=== PATIENT | male | born 1960 | race African-American/Black ===

== ENCOUNTER 2017-09-08 07:03 | Day surgery (SDC) | payer BC ==
[2017-09-05 10:29] LABS: Absolute Lymphocytes (CBC) 3.6 K/uL (0.7-4.9); Absolute Monocytes 0.8 K/uL (0.1-1.3); Absolute Neutrophil 5.4 K/uL (1.8-8.0); Basophils % 0.5 % (0-1.3); Eosinophils % 3.5 % (0-4.4); Hematocrit 47.9 % (39.6-49.0); Lymphocytes % 35.1 % (15.3-44.8); MCV 92.1 fL (80-100); MPV 8.6 fL (7.6-11.3); Monocytes % 8.2 % (3.3-12.3)
--- NOTE | 2017-09-05 10:31 | RAD REPORT ---
EXAM DESCRIPTION: RADOP - Outpatient Chest Single View - 09/05/2017 10:15 am CLINICAL HISTORY: Hypertension, PAD. COMPARISON: 11/05/2016 FINDINGS: The lungs are clear. The heart is normal in size. No displaced fractures. IMPRESSION: No acute or concerning finding suspected.
[2017-09-05 10:35] LABS: Protime INR 1.12
[2017-09-05 11:06] LABS: BUN Blood Urea Nitrogen 11 mg/dL (6-20); Bicarbonate 29 mEq/L (21-31); Glucose Level 93 mg/dL (65-120); Potassium 4.5 mEq/L (3.6-5.0); Sodium Level 138 mEq/L (135-145)
[~2017-09-08 07:03] MED LIST: ATROPINE SULF 1 MG/10 ML SYR IV ONE; HEPA 1000U/500MLS 2,000 UNIT/1,000 ML BAG IV ONE; HEPARIN 5000 UNIT/ML 1 ML VIAL ONE; LIDOCAINE 1% 20 ML MDV ONE
[2017-09-08] MEDS ORDERED: NA CHLORIDE 0.9% 500 ML ONE (07:18)
[2017-09-08] MEDS ORDERED: FENTANYL CITR 100 MCG/2 ML ONE (07:34)
[2017-09-08] MEDS ORDERED: MIDAZOLAM HCL 2 MG/2 ML INJ ONE (07:34)
--- NOTE | 2017-09-08 20:58 | OP ---
Surgeon: Hiren Jeff MD Identification: A 57-year-old man. Primary Care Physician: Ladonna Mcleod and Garett Royal M.D. Procedure: Abdominal angiogram with runoffs, selective arteriograms of the left iliac and right zaira c arteries with runoffs, all the way to the ankle. Procedure Findings: The patient's aorta and renal arteries are free of any significant atheroscleros is. Renal arteries are widely patent. In the iliac arteries, there is severe vascular disease. The left iliac is completely occluded and constitutes by numerous collaterals at the distal SFA. The il iac and SFA are heavily occluded. There is short-segment of the distal SFA that fills by collaterals , but then SFA is totally occluded again somewhat above the knee, again collaterals reconstitute the popliteal artery. The 3 vessels of the bifurcation below are mildly diseased. There is a 70% stenos is in the left ROSELYN. The right iliac has sequential stenosis. The right superficial femoral is total ly occluded. The common femoral has a 70% stenosis. The SFA is totally occluded until below the kne e. Reconstitution of vessels below the knee is very slow, you can see very small vessels which may p otentially be bypassable. They may be much larger if they had a normal filling pressure, but they nunez ve almost no flow at all. Procedure In Detail: The patient was brought to the cardiac clinical laboratory assistant in a fasting state, sedated wit h Versed and fentanyl. Right femoral artery was identified by palpation. Artery was entered using a n 18-gauge needle. A 6-Serbian sheath was used. With modified Seldinger technique, we were able to p lace a pigtail catheter into the descending aorta. We then exchanged catheters over a wire, yazan crocker cannulated the left iliac, and then we used a multipurpose catheter to fill just the right iliac. We took pictures in several different angulations, several different views, and finally a sheath sh ot. We were able to close the arteriotomy using a StarClose device. No complications from the procedure. The patient will be referred for surgical intervention. FARHEEN/JON Voice ID: [id number] Report ID: [id number]
== END 2017-09-08 12:31 | disposition home or self-care (01) ==
LOC: CCL 07:03
PROVIDERS: ATTEND Internal Medicine
PROC: B400YZZ Plain Radiography of Abdominal Aorta using Other Contrast (ICD-10-PCS; principal; 2017-09-08)
DX: I70.213 Atherosclerosis of native arteries of extremities with intermittent claudication, bilateral legs (principal); I70.92 Chronic total occlusion of artery of the extremities; I10 Essential (primary) hypertension; E78.5 Hyperlipidemia, unspecified; J44.9 Chronic obstructive pulmonary disease, unspecified
CPT/HCPCS: 36200; 36415; 71045; 75630; 80048; 85025; 85610; 85730; C1887; C1893; J1644; J2250; J3010

== ENCOUNTER 2018-03-01 11:04 | Emergency (ER) | payer BC, SELFPAY ==
--- OUTSIDE RECORDS SUMMARY | 2018-03-01 11:07 | XMS REPORT | Clinical Summary ---
:1960 Author Organization [facility] Address [address] [place] [address] Phone Care Team Providers Name Role Phone Unavailable Primary Care Provider Unavailable Allergies No Known Allergies Current Medications Prescription Sig. Disp. Refills Start Date End Date Status aspirin 81 MG EC Take 81 mg by Active tablet mouth daily. atorvastatin Take 1 tablet 30 tablet 11 09/30/2017 09/30/2018 Active (LIPITOR) 40 MG (40 mg total) tablet by mouth nightly. clopidogrel Take 1 tablet 30 tablet 11 10/01/2017 10/01/2018 Active (PLAVIX) 75 mg (75 mg total) tablet by mouth daily. lisinopril-hydroCHL Take 1 tablet 10/09/2017 Discontinued OROthiazide by mouth (RADHA,QISTORETI daily. C) 20-25 mg per tablet simvastatin (ZOCOR) Take 40 mg by 09/16/2017 Discontinued 40 MG tablet mouth nightly. acetaminophen-codei Take 2 tablets 30 tablet 0 09/30/2017 10/10/2017 ne (TYLENOL #3) by mouth every 300-30 mg per 4 (four) hours tablet as needed for up to 10 days. Max Daily Amount: 12 tablets Active Problems Problem Noted Date PVD (peripheral vascular disease) (HCC) 09/25/2017 Respiratory insufficiency 09/25/2017 Hypertension Peripheral vascular disease (HCC) Hyperlipidemia Encounters Date Type Specialty Care Team Description 10/09/2017 Clinical Support Cardiology Javi Urban, Post-operative [facility] (Primary Dx) 09/25/2017 - Hospital Encounter Cardiology Javi Urban, Respiratory insufficiency 09/30/2017 Macarena Rose MD 09/25/2017 Procedure Pass 09/25/2017 Surgery Javi Urban, BYPASS,FEMORAL-POPLITEAL 09/24/2017 Anesthesia Event Rich Paredes MD 09/16/2017 Hospital Encounter Javi Urban MD 09/16/2017 Office Visit Cardiology Javi Urban Aorto-iliac disease ( HCC) (Primary Dx);Femoral-popliteal artery atherosclerosis (HCC);Essential hypertension;Peripheral vascular disease (HCC);Hyperlipidemia, unspecified hyperlipidemia type 09/16/2017 Orders Only Cardiology aJvi Urban Aorto-iliac disease (HCC);Femoral-popliteal artery atherosclerosis (HCC) after 02/28/2017 Family History Medical History Relation Name Comments Cancer Mother throat cancer Relation Name Status Comments Mother Social History Tobacco Use Types Packs/Day Years Used Date Former Smoker 1 20 Quit: 09/23/2017 Smokeless Tobacco: Never Used Tobacco Cessation: Counseling Given: Yes Alcohol Use Drinks/Week oz/Week Comments No Sex Assigned at Date Recorded Not on file Last Filed Vital Signs Vital Sign Reading Time Taken Blood Pressure 137/82 10/09/2017 11:15 AM CDT Pulse 78 10/09/2017 11:15 AM CDT Temperature 36.7 C (98 F) 10/09/2017 11:15 AM CDT Respiratory Rate 16 10/09/2017 11:15 AM CDT Oxygen Saturation 100% 10/09/2017 11:15 AM CDT Inhaled Oxygen Concentration - - Weight 57.2 kg (126 lb 3.2 oz) 10/09/2017 11:15 AM CDT Height 175.3 cm (5' 9") 10/09/2017 11:15 AM CDT Body Mass Index 18.64 10/09/2017 11:15 AM CDT Plan of Treatment Health Maintenance Due Date Last Done Comments INFLUENZA VACCINE 02/23/2018 Implants Implanted Type Area International Marketing Intern Device Expiration Model / Identifier Date Serial / Lot Grft Eptfe-Heparin Rng [id number] - [id number] Graft/Pa Right: ANGELA GORE & 05/12/2021 [id number] / Implanted: Qty: 1 on 09/25/2017 by Javi Urban MD [facility] [id number] / Kathy Prince Gold Knitted Microvel Double Velour Vascular Graft 7mm X 30cm Right: [employer] 02/22/2022 [id number] / Implanted: Qty: 1 on 09/25/2017 by Javi Urban MD Leg [id number] / Procedures Procedure Name Priority Date/Time Associated Diagnosis Comments ENDARTERECTOMY,FEMORAL 09/25/2017 11:12 AM Peripheral vascular CDT occlusive disease (HCC) BYPASS,FEMORAL-FEMORAL 09/25/2017 11:12 AM Peripheral vascular CDT occlusive disease (HCC) BYPASS,FEMORAL-POPLITE 09/25/2017 11:12 AM Peripheral vascular AL CDT occlusive disease (HCC) after 02/28/2017 Results RHYTHM STRIP - SCAN (10/01/2017 1:00 PM)Magnesium (09/28/2017 12:18 AM)Only the most recent of3 resultswithin the time period is included. Component Value Ref Range Magnesium 2.1 1.6 - 2.6 mg/dL Specimen Performing Laboratory Blood [address] [address] Basic Metabolic Panel (09/28/2017 12:18 AM)Only the most recent of5 resultswithin the time period is included. Component Value Ref Range Sodium 136 136 - 145 meq/L Potassium 3.8 3.5 - 5.1 meq/L Chloride 104 98 - 107 meq/L CO2 26 22 - 29 meq/L BUN 11 7 - 21 mg/dL Creatinine 0.92 0.57 - 1.25 mg/dL Glucose 99 70 - 105 mg/dL Calcium 8.5 8.4 - 10.2 mg/dL EGFR 103Comment: ESTIMATED GFR IS NOT ACCURATE mL/min/1.73 sq m CREATININE CLEARANCE IN PREDICTING GLOMERULAR FILTRATION RATE. ESTIMATED GFR IS NOT APPLICABLE FOR DIALYSIS PATIENTS. Specimen Performing Laboratory Blood [address] [address] POC-Glucose meter (09/27/2017 9:11 AM)Only the most recent of3 resultswithin the time period is included. Component Value Ref Range POC-Glucose Meter 81Comment: TESTED AT [address] 70 - 110 mg/dL [address] Specimen Performing Laboratory Blood [facility] [address] [place] [address] Manual Differential (09/27/2017 3:52 AM) Component Value Ref Range Total Counted RBC Morphology Normal WBC Morphology Normal Platelet Morphology Normal Specimen Performing Laboratory Blood - Arm, Right [place] [id number] [place] [address] CBC with platelet count + automated diff (09/27/2017 3:52 AM)Only the most recent of4 resultswithin the time period is included. Component Value Ref Range WBC 14.6 (H) 3.5 - 10.5 K/L RBC 3.59 (L) 4.63 - 6.08 M/L Hemoglobin 11.0 (L) 13.7 - 17.5 GM/DL Hematocrit 32.8 (L) 40.1 - 51.0 % MCV 91.4 79.0 - 92.2 fL MCH 30.6 25.7 - 32.2 pg MCHC 33.5 32.3 - 36.5 GM/DL RDW 12.9 11.6 - 14.4 % Platelets 143 (L) 150 - 450 K/CU MM MPV 10.8 9.4 - 12.4 fL nRBC 0 0 - 0 /100 WBC % Neutros 66Comment: This is an appended % report. These results have been appended to a previously final verified report. % Lymphs 20Comment: This is an appended % report. These results have been appended to a previously final verified report. % Monos 11Comment: This is an appended % report. These results have been appended to a previously final verified report. % Eos 3Comment: This is an appended % report. These results have been appended to a previously final verified report. % Baso 0Comment: This is an appended % report. These results have been appended to a previously final verified report. # Neutros 9.59 (H)Comment: This is an appended 1.78 - 5.38 K/L report. These results have been appended to a previously final verified report. # Lymphs 2.96Comment: This is an appended 1.32 - 3.57 K/L report. These results have been appended to a previously final verified report. # Monos 1.59 (H)Comment: This is an appended 0.30 - 0.82 K/L report. These results have been appended to a previously final verified report. # Eos 0.37Comment: This is an appended 0.04 - 0.54 K/L report. These results have been appended to a previously final verified report. # Baso 0.04Comment: This is an appended 0.01 - 0.08 K/L report. These results have been appended to a previously final verified report. Immature Granulocytes-Relative 1Comment: This is an appended 0 - 1 % report. These results have been appended to a previously final verified report. Specimen Performing Laboratory Blood - Arm, [place] [address] CBC with platelet count + automated diff (09/27/2017 3:52 AM)Only the most recent of4 resultswithin the time period is included. Specimen Performing Laboratory Blood Narrative The following orders were created for panel order CBC with platelet count + automated diff. Procedure Abnormality Status --------- ------ CBC with platelet count ...[[id number]]Abnormal Edited Result - FINAL Please view results for these tests on the individual orders. Calcium, Ionized (09/26/2017 3:45 AM) Component Value Ref Range Calcium, Ion 1.08 (L) 1.12 - 1.27 mmol/L pH, Blood 7.41 Specimen Performing Laboratory Blood - Line, Arterial [address] [address] Lactic acid, arterial, whole blood (09/26/2017 3:45 AM) Component Value Ref Range Lactate, Art 1.0 0.5 - 2.2 mmol/L Specimen Performing Laboratory Blood, Arterial - Line, Arterial [address] [address] Narrative Effective 09/27/2015: Units/Reference Range Change New: 0.5-2.2 mmol/LPrevious: 5-20 mg/dL Phosphorus (09/26/2017 3:45 AM)Only the most recent of2 resultswithin the time period is included. Component Value Ref Range Phosphorus 2.7 2.3 - 4.7 mg/dL Specimen Performing Laboratory Blood - Line, Arterial [address] [address] XR chest 1 view portable / bedside (09/25/2017 6:59 PM) Specimen Performing Laboratory GE RIS Narrative FINAL REPORT HISTORY : central line placement. Comparison: 09/16/2017 Comment: Single portable view of the chest was obtained. The cardiac silhouette size is at the upper limits of normal. No pneumothorax, pleural effusion or focal infiltrate is seen. There may be a degree of mild pulmonary venous congestion. There is atherosclerotic calcification of the thoracic aorta. Nasogastric tube is seen with the tip not included on the film. Right-sided internal jugular venous catheter is in place with the tip projecting over the cavoatrial junction. Signed: Jennifer Huerta MD Report Verified Date/Time:09/25/2017 19:01:26 Reading Location: [address] Consult Reading Room Procedure Note Interface, External Ris In - 09/25/2017 7:03 PM CDT FINAL REPORT HISTORY : central line placement. Comparison: 09/16/2017 Comment: Single portable view of the chest was obtained. The cardiac silhouette size is at the upper limits of normal. No pneumothorax, pleural effusion or focal infiltrate is seen. There may be a degree of mild pulmonary venous congestion. There is atherosclerotic calcification of the thoracic aorta. Nasogastric tube is seen with the tip not included on the film. Right-sided internal jugular venous catheter is in place with the tip projecting over the cavoatrial junction. Signed: Jennifer Huerta MD Report Verified Date/Time: 09/25/2017 19:01:26 Reading Location: [address] Consult Reading Room aPTT (09/25/2017 5:36 PM) Component Value Ref Range PTT 34.5 22.5 - 36.0 seconds Specimen Performing Laboratory Blood [address] [address] Prothromin time/INR (09/25/2017 5:36 PM)Only the most recent of2 resultswithin the time period is included. Component Value Ref Range Protime 15.8 (H) 11.7 - 14.7 seconds INR 1.3 <=5.9 Specimen Performing Laboratory Blood [address] [address] Narrative RECOMMENDED COUMADIN/WARFARIN INR THERAPY RANGES STANDARD DOSE: 2.0 - 3.0 Includes: PROPHYLAXIS for venous thrombosis, systemic embolization; TREATMENT for venous thrombosis and/or pulmonary embolus. HIGH RISK: Target INR is 2.5-3.5 for patients with mechanical heart valves. Fibrinogen (09/25/2017 5:36 PM) Component Value Ref Range Fibrinogen 354 225 - 434 mg/dl Specimen Performing Laboratory Blood [address] [address] Tissue Exam (09/25/2017 4:09 PM) Component Value Ref Range Case Report Surgical Pathology Report Case: [id number] Authorizing Provider:Javi Urban MDCollected: 09/25/2017 1609 Ordering Location: [facility] Received: 09/26/2017 0819 PERIOPERATIVE SERVICES Pathologist: Dejan Martin MD Specimens: A) - Plaque, LEFT FEMORAL PLAQUE B) - Plaque, RIGHT FEMORAL PLAQUE DIAGNOSIS A. ARTERY, LEFT FEMORAL, ENDARTERECTOMY: CALCIFIC ATHEROSCLEROTIC PLAQUE B. ARTERY, RIGHT FEMORAL, ENDARTERECTOMY: CALCIFIC ATHEROSCLEROTIC PLAQUE WITH ATTACHED FIBRIN THROMBUS Signing Pathologist Direct Phone Line: [phone] CPT Code(s) 26299 2 ; 48345 2 CLINICAL HISTORY PVD SPECIMEN SOURCE A. Left femoral plaque. B. Right femoral plaque GROSS DESCRIPTION Specimen A: Received in saline labeled "plaque", description "left femoral plaque" is a 2.5 x 2.5 x 0.5 cm aggregate of sinha- white to yellow-ferreira, rubbery fibrous tissue. Sectioning reveals focal calcifi cation. Vessel Traffic Officer sections are submitted in cassette A1 for decalcification. Specimen B: Received in saline labeled "plaque", description "right femoral plaque" are three irregular, sinha-white to yellow-ferreira, rubbery portions of fibrous tissue measuring 1.5 x 1.5 x 0.2 cm in aggr egate. Sectioning reveals focal calcification. The specimen is entirely submitted in cassette B1 for decalcification. DB/ew MICROSCOPIC DESCRIPTION Performed Specimen Performing Laboratory Tissue [place] [address] TRANSFUSION SERVICE REPORT - SCAN (09/17/2017 5:44 PM)XR chest 2 views (2017 11:17 AM) Specimen Performing Laboratory GE RIS Narrative FINAL REPORT Chest two views INDICATION: Preoperative exam. Aortic iliac disease, femoral popliteal artery atherosclerosis COMPARISON: None available IMPRESSION: There is no focal consolidation, vascular congestion, pleural effusion, or pneumothorax. The cardiomediastinal silhouette is unremarkable. There are mild degenerative spine and shoulder changes. Signed: Yaw Lay MD Report Verified Date/Time:09/16/2017 12:21:59 Reading Location: [facility] Radiology Reading Room Procedure Note Interface, External Ris In - 09/16/2017 12:24 PM CDT FINAL REPORT Chest two views INDICATION: Preoperative exam. Aortic iliac disease, femoral popliteal artery atherosclerosis COMPARISON: None available IMPRESSION: There is no focal consolidation, vascular congestion, pleural effusion, or pneumothorax. The cardiomediastinal silhouette is unremarkable. There are mild degenerative spine and shoulder changes. Signed: Yaw Lay MD Report Verified Date/Time: 09/16/2017 12:21:59 Reading Location: [facility] Radiology Reading Room 12 lead (May substitute report if done w/in last 3 months) (09/16/2017 10: 56 AM) Specimen Performing Laboratory GE MUSE Narrative Ventricular Rate 63 BPM Atrial Rate 63 BPM P-R Interval 188 ms QRS Duration 74 ms Q-T Interval 380 ms QTC Calculation(Bazett) 388 ms P [place] 79 degrees R [place] 66 degrees T [place] 69 degrees Normal sinus rhythm with sinus arrhythmia Normal ECG No previous ECGs available Confirmed by Euegnia Nelson Alireaz ([id number]) on 09/17/2017 10:24:21 PM Procedure Note Interface, External Ris In - 09/17/2017 10:24 PM CDT Ventricular Rate 63 BPM Atrial Rate 63 BPM P-R Interval 188 ms QRS Duration 74 ms Q-T Interval 380 ms QTC Calculation(Bazett) 388 ms P [place] 79 degrees R [place] 66 degrees T [place] 69 degrees Normal sinus rhythm with sinus arrhythmia Normal ECG No previous ECGs available Confirmed by Eugenia Nelson Alireaz ([id number]) on 09/17/2017 10:24:21 PM Type and screen, automated (09/16/2017 10:54 AM) Component Value Ref Range ABO/RH AUTOMATED (BEAKER) A POSITIVE Ab Scrn NEGATIVE Specimen [place] [address] Hemoglobin A1c (09/16/2017 10:54 AM) Component Value Ref Range Hemoglobin A1C 5.6 4.3 - 6.1 % Specimen Performing Laboratory Blood [address] [address] after 02/28/2017
--- OUTSIDE RECORDS SUMMARY | 2018-03-01 11:07 | XMS REPORT ---
:1960 Author Organization [facility] Address [facility] [address] Guillen [address] [place] [id number] Care Team Providers Name Role Phone GRETA URBAN Unavailable Unavailable Problems This patient has no known problems. Allergies, Adverse Reactions, Alerts This patient has no known allergies or adverse reactions. Medications This patient has no known medications. Results Test Description Test Time Test Comments Text Results Atomic Results Result Comments TISSUE EXAM 2017-09-30 14:18:00 Surgical Pathology Report Case: [id number] Authorizing Provider: Greta Urban MD Collected: 09/25/2017 1609 Ordering Location: [facility] Received: 09/26/2017 0819 PERIOPERATIVE SERVICES Pathologist: Dejan Martin MD Specimens: A) - Plaque, LEFT FEMORAL PLAQUE B) - Plaque, RIGHT FEMORAL PLAQUE A. ARTERY, LEFT FEMORAL, ENDARTERECTOMY:CALCIFIC ATHEROSCLEROTIC PLAQUEB. ARTERY, RIGHT FEMORAL, ENDARTERECTOMY:CALCIFIC ATHEROSCLEROTIC PLAQUE WITH ATTACHED FIBRIN THROMBUS Signing Pathologist Direct Phone Line: [phone] signed by Dejan Martin MD on 09/30/2017 at 2:18 [id number]; [id number]. Left femoral plaque. B. Right femoral plaque Specimen A: Received in saline labeled "plaque", description "left femoral plaque" is a 2.5 x 2.5 x 0.5 cm aggregate of sinha-white to yellow-ferreira, rubbery fibrous tissue. Sectioning reveals focal calcification. [employer] sections are submitted in cassette A1 for decalcification.Specimen B: Received in saline labeled "plaque", description "right femoral plaque" are three irregular, sinha-white to yellow-ferreira, rubbery portions of fibrous tissue measuring 1.5 x 1.5 x 0.2 cm in aggregate. Sectioning reveals focal calcification. The specimen is entirely submitted in cassette B1 for decalcification. DB/ewPerformed MAGNESIUM 2017-09-28 00:38:00 Test Item Value Reference Range Comments MAGNESIUM (BEAKER) (test lxsv=199) 2.1 mg/dL 1.6-2.6 BASIC METABOLIC [id number] 00:38:00 Test Item Value Reference Range Comments SODIUM (BEAKER) (test 136 meq/L 136-145 ssmg=479) POTASSIUM (BEAKER) (test 3.8 meq/L 3.5-5.1 qmxj=754) CHLORIDE (BEAKER) (test 104 meq/L 98-107 jfxf=663) CO2 (BEAKER) (test 26 meq/L 22-29 hqso=152) BLOOD UREA NITROGEN 11 mg/dL 7-21 (BEAKER) (test xhdy=317) CREATININE (BEAKER) (test 0.92 mg/dL 0.57-1.25 vwex=842) GLUCOSE RANDOM (BEAKER) 99 mg/dL 70-105 (test oovm=213) CALCIUM (BEAKER) (test 8.5 mg/dL 8.4-10.2 roqc=739) EGFR (BEAKER) (test 103 mL/min/1.73 sq m ESTIMATED GFR IS NOT lraf=4047) ACCURATE CREATININE CLEARANCE IN PREDICTING GLOMERULAR FILTRATION RATE. ESTIMATED GFR IS NOT APPLICABLE FOR DIALYSIS PATIENTS. CBC W/PLT COUNT & AUTO [id number] 13:39:00 Test Item Value Reference Range Comments WHITE BLOOD CELL COUNT 14.6 K/ L 3.5-10.5 (BEAKER) (test stej=989) RED BLOOD CELL COUNT (BEAKER) 3.59 M/ L 4.63-6.08 (test roub=492) HEMOGLOBIN (BEAKER) (test 11.0 GM/DL 13.7-17.5 opxm=422) HEMATOCRIT (BEAKER) (test 32.8 % 40.1-51.0 rbhv=483) MEAN CORPUSCULAR VOLUME 91.4 fL 79.0-92.2 (BEAKER) (test qpec=748) MEAN CORPUSCULAR HEMOGLOBIN 30.6 pg 25.7-32.2 (BEAKER) (test lzet=121) MEAN CORPUSCULAR HEMOGLOBIN 33.5 GM/DL 32.3-36.5 CONC (BEAKER) (test ndca=673) RED CELL DISTRIBUTION WIDTH 12.9 % 11.6-14.4 (BEAKER) (test bvgk=335) PLATELET COUNT (BEAKER) (test 143 K/CU MM 150-450 swkd=122) MEAN PLATELET VOLUME (BEAKER) 10.8 fL 9.4-12.4 (test pmnu=334) NUCLEATED RED BLOOD CELLS 0 /100 WBC 0-0 (BEAKER) (test oxge=830) NEUTROPHILS RELATIVE PERCENT 66 % This is an appended report. (BEAKER) (test kxce=917) These results have been appended to a previously final verified report. LYMPHOCYTES RELATIVE PERCENT 20 % This is an appended report. (BEAKER) (test vklv=037) These results have been appended to a previously final verified report. MONOCYTES RELATIVE PERCENT 11 % This is an appended report. (BEAKER) (test suoq=370) These results have been appended to a previously final verified report. EOSINOPHILS RELATIVE PERCENT 3 % This is an appended report. (BEAKER) (test sila=700) These results have been appended to a previously final verified report. BASOPHILS RELATIVE PERCENT 0 % This is an appended report. (BEAKER) (test cszz=339) These results have been appended to a previously final verified report. NEUTROPHILS ABSOLUTE COUNT 9.59 K/ L 1.78-5.38 This is an appended report. (BEAKER) (test teyf=595) These results have been appended to a previously final verified report. LYMPHOCYTES ABSOLUTE COUNT 2.96 K/ L 1.32-3.57 This is an appended report. (BEAKER) (test addn=553) These results have been appended to a previously final verified report. MONOCYTES ABSOLUTE COUNT 1.59 K/ L 0.30-0.82 This is an appended report. (BEAKER) (test agzt=081) These results have been appended to a previously final verified report. EOSINOPHILS ABSOLUTE COUNT 0.37 K/ L 0.04-0.54 This is an appended report. (BEAKER) (test gqhm=202) These results have been appended to a previously final verified report. BASOPHILS ABSOLUTE COUNT 0.04 K/ L 0.01-0.08 This is an appended report. (BEAKER) (test bbqb=746) These results have been appended to a previously final verified report. IMMATURE GRANULOCYTES-RELATIVE 1 % 0-1 This is an appended report. PERCENT (BEAKER) (test These results have been cxto=0166) appended to a previously final verified report. POCT-GLUCOSE [id number] 09:12:00 Test Item Value Reference Range Comments POC-GLUCOSE METER (BEAKER) 81 mg/dL 70-110 TESTED AT [address] (test dbvp=0947) [place] [address] BASIC METABOLIC [id number] 05:02:00 Test Item Value Reference Range Comments SODIUM (BEAKER) (test 136 meq/L 136-145 pcnu=713) POTASSIUM (BEAKER) (test 3.8 meq/L 3.5-5.1 oeic=261) CHLORIDE (BEAKER) (test 105 meq/L 98-107 stwe=212) CO2 (BEAKER) (test 25 meq/L 22-29 qrja=656) BLOOD UREA NITROGEN 9 mg/dL 7-21 (BEAKER) (test ueet=864) CREATININE (BEAKER) (test 0.82 mg/dL 0.57-1.25 qsef=096) GLUCOSE RANDOM (BEAKER) 89 mg/dL 70-105 (test xord=609) CALCIUM (BEAKER) (test 8.3 mg/dL 8.4-10.2 gzhi=084) EGFR (BEAKER) (test 117 mL/min/1.73 sq m ESTIMATED GFR IS NOT bckl=5306) ACCURATE CREATININE CLEARANCE IN PREDICTING GLOMERULAR FILTRATION RATE. ESTIMATED GFR IS NOT APPLICABLE FOR DIALYSIS PATIENTS. POCT-GLUCOSE [id number] 21:22:00 Test Item Value Reference Range Comments POC-GLUCOSE METER (BEAKER) 121 mg/dL 70-110 TESTED AT [address] (test gzsw=4755) [place] [address] [id number] 04:30:00 Test Item Value Reference Range Comments PHOSPHORUS (BEAKER) (test qrvl=456) 2.7 mg/dL 2.3-4.7 [id number] 04:30:00 Test Item Value Reference Range Comments MAGNESIUM (BEAKER) (test plsg=978) 2.5 mg/dL 1.6-2.6 BASIC METABOLIC [id number] 04:30:00 Test Item Value Reference Range Comments SODIUM (BEAKER) (test 134 meq/L 136-145 fust=593) POTASSIUM (BEAKER) (test 3.8 meq/L 3.5-5.1 ngqz=106) CHLORIDE (BEAKER) (test 104 meq/L 98-107 eerg=921) CO2 (BEAKER) (test 22 meq/L 22-29 swkz=908) BLOOD UREA NITROGEN 13 mg/dL 7-21 (BEAKER) (test vgul=316) CREATININE (BEAKER) (test 0.96 mg/dL 0.57-1.25 dfpt=002) GLUCOSE RANDOM (BEAKER) 115 mg/dL 70-105 (test pwyz=404) CALCIUM (BEAKER) (test 8.2 mg/dL 8.4-10.2 ozqd=981) EGFR (BEAKER) (test 98 mL/min/1.73 sq m ESTIMATED GFR IS NOT qnmo=4665) ACCURATE CREATININE CLEARANCE IN PREDICTING GLOMERULAR FILTRATION RATE. ESTIMATED GFR IS NOT APPLICABLE FOR DIALYSIS PATIENTS. LACTIC ACID, ARTERIAL, WHOLE [id number] 04:15:00 Test Item Value Reference Range Comments LACTATE BLOOD ARTERIAL (2) (BEAKER) (test 1.0 mmol/L 0.5-2.2 bgut=1161) Effective 09/27/2015: Units/Reference Range ChangeNew: 0.5-2.2 mmol/L Previous: 5 -20 mg/dLCBC W/PLT COUNT & AUTO [id number] 04:12:00 Test Item Value Reference Range Comments WHITE BLOOD CELL COUNT (BEAKER) (test hlpa=405) 16.5 K/ L 3.5-10.5 RED BLOOD CELL COUNT (BEAKER) (test jgii=761) 4.08 M/ L 4.63-6.08 HEMOGLOBIN (BEAKER) (test dshv=773) 12.5 GM/DL 13.7-17.5 HEMATOCRIT (BEAKER) (test djls=757) 36.9 % 40.1-51.0 MEAN CORPUSCULAR VOLUME (BEAKER) (test mmxf=500) 90.4 fL 79.0-92.2 MEAN CORPUSCULAR HEMOGLOBIN (BEAKER) (test 30.6 pg 25.7-32.2 cyjr=628) MEAN CORPUSCULAR HEMOGLOBIN CONC (BEAKER) (test 33.9 GM/DL 32.3-36.5 dutj=548) RED CELL DISTRIBUTION WIDTH (BEAKER) (test 12.8 % 11.6-14.4 vdhu=190) PLATELET COUNT (BEAKER) (test pwqt=370) 183 K/CU MM 150-450 MEAN PLATELET VOLUME (BEAKER) (test sgae=818) 10.2 fL 9.4-12.4 NUCLEATED RED BLOOD CELLS (BEAKER) (test 0 /100 WBC 0-0 irrk=578) NEUTROPHILS RELATIVE PERCENT (BEAKER) (test 80 % xozh=546) LYMPHOCYTES RELATIVE PERCENT (BEAKER) (test 11 % voga=696) MONOCYTES RELATIVE PERCENT (BEAKER) (test 8 % dywf=460) EOSINOPHILS RELATIVE PERCENT (BEAKER) (test 1 % eshb=680) BASOPHILS RELATIVE PERCENT (BEAKER) (test 0 % qecs=098) NEUTROPHILS ABSOLUTE COUNT (BEAKER) (test 13.15 K/ L 1.78-5.38 jpig=140) LYMPHOCYTES ABSOLUTE COUNT (BEAKER) (test 1.85 K/ L 1.32-3.57 rqbe=447) MONOCYTES ABSOLUTE COUNT (BEAKER) (test 1.36 K/ L 0.30-0.82 wrcw=888) EOSINOPHILS ABSOLUTE COUNT (BEAKER) (test 0.10 K/ L 0.04-0.54 gyqh=357) BASOPHILS ABSOLUTE COUNT (BEAKER) (test 0.03 K/ L 0.01-0.08 qmjl=177) IMMATURE GRANULOCYTES-RELATIVE PERCENT (BEAKER) 0 % 0-1 (test owzl=4671) CALCIUM, [id number] 03:51:00 Test Item Value Reference Range Comments CALCIUM IONIZED (BEAKER) (test mfrp=681) 1.08 mmol/L 1.12-1.27 PH, BLOOD (BEAKER) (test nzwf=3170) 7.41 POCT-GLUCOSE [id number] 22:24:00 Test Item Value Reference Range Comments POC-GLUCOSE METER (BEAKER) 159 mg/dL 70-110 TESTED AT [facility] [address] [facility] (test ntdr=0244) [facility] [address] RAD, CHEST, 1 VIEW, NON [id number] 19:01:00Reason for exam:->central line placement Should this be performed at the bedside?->YesFINAL REPORT HISTORY : central line placement. Comparison: 09/16/2017 Comment:Single portable view of the chest was obtained. The cardiac silhouette size is at the upper limits of normal. No pneumothorax, pleural effusion or focal infiltrate is seen. There may be a degree of mild pulmonary venous congestion. There is atherosclerotic calcification of the thoracic aorta. Nasogastric tube is seen with the tip not included on the film. Right-sided internal jugular venous catheteris in place with the tip projecting over the cavoatrial junction. Signed: Jennifer Huerta MDReport Verified Date/Time: 2017 19:01:26 Reading Location: [address] Consult Reading Room [id number] 18:09:00 Test Item Value Reference Range Comments PHOSPHORUS (BEAKER) (test dfpz=378) 3.1 mg/dL 2.3-4.7 [id number] 18:09:00 Test Item Value Reference Range Comments MAGNESIUM (BEAKER) (test crkh=935) 1.7 mg/dL 1.6-2.6 BASIC METABOLIC [id number] 18:09:00 Test Item Value Reference Range Comments SODIUM (BEAKER) (test 137 meq/L 136-145 iqau=999) POTASSIUM (BEAKER) (test 3.9 meq/L 3.5-5.1 auvy=120) CHLORIDE (BEAKER) (test 108 meq/L 98-107 tlap=904) CO2 (BEAKER) (test 23 meq/L 22-29 hgdf=088) BLOOD UREA NITROGEN 14 mg/dL 7-21 (BEAKER) (test iygw=475) CREATININE (BEAKER) (test 0.95 mg/dL 0.57-1.25 usto=164) GLUCOSE RANDOM (BEAKER) 231 mg/dL 70-105 (test fjma=605) CALCIUM (BEAKER) (test 8.1 mg/dL 8.4-10.2 hbdu=565) EGFR (BEAKER) (test 99 mL/min/1.73 sq m ESTIMATED GFR IS NOT ydaz=2514) ACCURATE CREATININE CLEARANCE IN PREDICTING GLOMERULAR FILTRATION RATE. ESTIMATED GFR IS NOT APPLICABLE FOR DIALYSIS PATIENTS. PROTHROMBIN [id number] 18:01:00 Test Item Value Reference Range Comments PROTIME (BEAKER) (test xcep=217) 15.8 seconds 11.7-14.7 INR (BEAKER) (test ggjt=145) 1.3 <=5.9 RECOMMENDED COUMADIN/WARFARIN INR THERAPY RANGESSTANDARD DOSE: 2.0 - 3.0 Includes: PROPHYLAXIS forvenous thrombosis, systemic embolization; TREATMENT for venous thrombosis and/or pulmonary embolus.HIGH RISK: Target INR is 2.5-3.5 for patients with mechanical heart valves.[id number] 18:01:00 Test Item Value Reference Range Comments FIBRINOGEN LEVEL (BEAKER) (test ymhq=070) 354 mg/dl 225-434 [id number] 18:01:00 Test Item Value Reference Range Comments PARTIAL THROMBOPLASTIN TIME (BEAKER) (test 34.5 seconds 22.5-36.0 buit=436) CBC W/PLT COUNT & AUTO [id number] 17:52:00 Test Item Value Reference Range Comments WHITE BLOOD CELL COUNT (BEAKER) (test sghu=310) 21.1 K/ L 3.5-10.5 RED BLOOD CELL COUNT (BEAKER) (test ccaw=003) 4.68 M/ L 4.63-6.08 HEMOGLOBIN (BEAKER) (test ivkq=954) 14.3 GM/DL 13.7-17.5 HEMATOCRIT (BEAKER) (test mzfs=654) 42.8 % 40.1-51.0 MEAN CORPUSCULAR VOLUME (BEAKER) (test wgka=002) 91.5 fL 79.0-92.2 MEAN CORPUSCULAR HEMOGLOBIN (BEAKER) (test 30.6 pg 25.7-32.2 igab=209) MEAN CORPUSCULAR HEMOGLOBIN CONC (BEAKER) (test 33.4 GM/DL 32.3-36.5 mjfy=975) RED CELL DISTRIBUTION WIDTH (BEAKER) (test 13.0 % 11.6-14.4 xxhj=427) PLATELET COUNT (BEAKER) (test gnwn=336) 216 K/CU MM 150-450 MEAN PLATELET VOLUME (BEAKER) (test exre=620) 10.3 fL 9.4-12.4 NUCLEATED RED BLOOD CELLS (BEAKER) (test 0 /100 WBC 0-0 eoqp=689) NEUTROPHILS RELATIVE PERCENT (BEAKER) (test 65 % tycl=058) LYMPHOCYTES RELATIVE PERCENT (BEAKER) (test 24 % sujp=615) MONOCYTES RELATIVE PERCENT (BEAKER) (test 7 % ewvy=725) EOSINOPHILS RELATIVE PERCENT (BEAKER) (test 3 % jmxy=293) BASOPHILS RELATIVE PERCENT (BEAKER) (test 0 % rnuv=001) NEUTROPHILS ABSOLUTE COUNT (BEAKER) (test 13.75 K/ L 1.78-5.38 lpma=674) LYMPHOCYTES ABSOLUTE COUNT (BEAKER) (test 4.96 K/ L 1.32-3.57 ewrv=672) MONOCYTES ABSOLUTE COUNT (BEAKER) (test 1.37 K/ L 0.30-0.82 hpfr=671) EOSINOPHILS ABSOLUTE COUNT (BEAKER) (test 0.69 K/ L 0.04-0.54 qorg=851) BASOPHILS ABSOLUTE COUNT (BEAKER) (test 0.05 K/ L 0.01-0.08 txog=892) IMMATURE GRANULOCYTES-RELATIVE PERCENT (BEAKER) 1 % 0-1 (test qsjf=1031) HEMOGLOBIN [id number] 14:43:00 Test Item Value Reference Range Comments HEMOGLOBIN A1C (BEAKER) (test lycd=902) 5.6 % 4.3-6.1 BASIC METABOLIC [id number] 12:35:00 Test Item Value Reference Range Comments SODIUM (BEAKER) (test 141 meq/L 136-145 qbee=353) POTASSIUM (BEAKER) (test 4.1 meq/L 3.5-5.1 kfbj=600) CHLORIDE (BEAKER) (test 105 meq/L 98-107 ndjp=948) CO2 (BEAKER) (test 28 meq/L 22-29 pryi=845) BLOOD UREA NITROGEN 9 mg/dL 7-21 (BEAKER) (test tnyk=240) CREATININE (BEAKER) (test 0.82 mg/dL 0.57-1.25 xwwe=667) GLUCOSE RANDOM (BEAKER) 89 mg/dL 70-105 (test invy=763) CALCIUM (BEAKER) (test 9.5 mg/dL 8.4-10.2 qxkf=616) EGFR (BEAKER) (test 117 mL/min/1.73 sq m ESTIMATED GFR IS NOT hsgw=8120) ACCURATE CREATININE CLEARANCE IN PREDICTING GLOMERULAR FILTRATION RATE. ESTIMATED GFR IS NOT APPLICABLE FOR DIALYSIS PATIENTS. PROTHROMBIN TIME/[id number] 12:32:00 Test Item Value Reference Range Comments PROTIME (BEAKER) (test mvzq=312) 13.7 seconds 11.7-14.7 INR (BEAKER) (test rbpa=551) 1.1 <=5.9 RECOMMENDED COUMADIN/WARFARIN INR THERAPY RANGESSTANDARD DOSE: 2.0 - 3.0 Includes: PROPHYLAXIS forvenous thrombosis, systemic embolization; TREATMENT for venous thrombosis and/or pulmonary embolus.HIGH RISK: Target INR is 2.5-3.5 for patients with mechanical heart valves.RAD, CHEST, 2 [id number] 12:21: 00Reason for Exam:->Pre-OpFINAL REPORT Chest two views INDICATION: Preoperative exam. Aortic iliac disease, femoral popliteal artery atherosclerosis COMPARISON: None available IMPRESSION: There is no focal consolidation, vascular congestion, pleural effusion, or pneumothorax. The cardiomediastinal silhouette is unremarkable. There are mild degenerative spine and shoulder changes. Signed: Yaw Lay MDReport Verified Date/Time: 09/16/2017 12:21:59 Reading Location: [facility] Radiology Reading Room CBC W/ PLT COUNT & AUTO [id number] 12:19:00 Test Item Value Reference Range Comments WHITE BLOOD CELL COUNT (BEAKER) (test nlto=682) 8.6 K/ L 3.5-10.5 RED BLOOD CELL COUNT (BEAKER) (test uyky=262) 5.05 M/ L 4.63-6.08 HEMOGLOBIN (BEAKER) (test ludq=113) 15.4 GM/DL 13.7-17.5 HEMATOCRIT (BEAKER) (test wkuq=717) 47.1 % 40.1-51.0 MEAN CORPUSCULAR VOLUME (BEAKER) (test wejx=379) 93.3 fL 79.0-92.2 MEAN CORPUSCULAR HEMOGLOBIN (BEAKER) (test 30.5 pg 25.7-32.2 qedz=348) MEAN CORPUSCULAR HEMOGLOBIN CONC (BEAKER) (test 32.7 GM/DL 32.3-36.5 bqdo=274) RED CELL DISTRIBUTION WIDTH (BEAKER) (test 13.0 % 11.6-14.4 ijrg=931) PLATELET COUNT (BEAKER) (test udzu=610) 272 K/CU MM 150-450 MEAN PLATELET VOLUME (BEAKER) (test eumr=757) 10.6 fL 9.4-12.4 NUCLEATED RED BLOOD CELLS (BEAKER) (test 0 /100 WBC 0-0 xdao=757) NEUTROPHILS RELATIVE PERCENT (BEAKER) (test 55 % cvim=287) LYMPHOCYTES RELATIVE PERCENT (BEAKER) (test 33 % kutd=650) MONOCYTES RELATIVE PERCENT (BEAKER) (test 6 % fepf=019) EOSINOPHILS RELATIVE PERCENT (BEAKER) (test 5 % bduw=288) BASOPHILS RELATIVE PERCENT (BEAKER) (test 0 % dvwo=850) NEUTROPHILS ABSOLUTE COUNT (BEAKER) (test 4.70 K/ L 1.78-5.38 bmky=453) LYMPHOCYTES ABSOLUTE COUNT (BEAKER) (test 2.83 K/ L 1.32-3.57 dmlg=766) MONOCYTES ABSOLUTE COUNT (BEAKER) (test 0.51 K/ L 0.30-0.82 eaxl=376) EOSINOPHILS ABSOLUTE COUNT (BEAKER) (test 0.46 K/ L 0.04-0.54 gzal=985) BASOPHILS ABSOLUTE COUNT (BEAKER) (test 0.03 K/ L 0.01-0.08 epet=888) IMMATURE GRANULOCYTES-RELATIVE PERCENT (BEAKER) 0 % 0-1 (test iabq=4427)
[2018-03-01 12:06] LABS: Absolute Lymphocytes (CBC) 3.3 K/uL (0.7-4.9); Absolute Monocytes 0.7 K/uL (0.1-1.3); Absolute Neutrophil 5.7 K/uL (1.8-8.0); Basophils % 0.5 % (0-1.3); Eosinophils % 4.1 % (0-4.4); Hematocrit 44.8 % (39.6-49.0); Lymphocytes % 32.4 % (15.3-44.8); MCV 90.5 fL (80-100); MPV 8.6 fL (7.6-11.3); Monocytes % 6.9 % (3.3-12.3); RBC Red Blood Cell Count 4.95 M/uL (4.33-5.43)
[2018-03-01 12:25] LABS: ALT/SGPT 33 U/L (12-78); AST/SGOT 22 U/L (15-37); Albumin 4.3 g/dL (3.4-5.0); Alkaline Phosphatase 69 U/L (45-117); BUN Blood Urea Nitrogen 7 mg/dL (7-18); Bicarbonate 26 mmol/L (21-32); Bilirubin Total 0.7 mg/dL (0.2-1.0); Glucose Level 104 mg/dL (74-106); Potassium 3.7 mmol/L (3.5-5.1); Protein, Total 8.5 g/dL (6.4-8.2); Sodium Level 142 mmol/L (136-145)
--- NOTE | 2018-03-01 13:12 | RAD REPORT ---
EXAM DESCRIPTION: RAD - Foot Right 3 View - 03/01/2018 12:06 pm CLINICAL HISTORY: PAIN COMPARISON: No comparisons FINDINGS: The bones are mildly demineralized. No fracture, dislocation or aggressive marrow lesion.
--- NOTE | 2018-03-01 13:20 | RAD REPORT ---
EXAM DESCRIPTION: US - Extremity Venous Uni Ltd - 03/01/2018 1:13 pm CLINICAL HISTORY: lower extremity swelling Leg swelling and edema. COMPARISON: Upper Lower Extrem Art Multi dated 05/06/2017 FINDINGS: Right lower extremity venous system was interrogated with Doppler technique. Normal flow, compressibility and augmentation was noted. There is no DVT present. IMPRESSION: No evidence of right lower extremity deep venous thrombosis.
--- NOTE | 2018-03-01 13:31 | RAD REPORT ---
EXAM DESCRIPTION: US - Lower Extremity Artery Uni Ltd - 03/01/2018 1:14 pm CLINICAL HISTORY: pain, swelling COMPARISON: ABDOMINAL EXAM LIMITED dated 03/04/2014Lower Ext Angio dated 08/07/2017 FINDINGS: Grayscale, spectral, color and power Doppler of the right lower extremity arterial system was performed. Very diseased pattern of right lower extremity arterial flow seen. A graft is noted the in the thigh with flow not detected within the mid and distal portion of the graft. Monophasic and very diminished flow is seen in the popliteal artery and distal vessels. 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
--- NOTE | 2018-03-01 14:07 | ER ---
Nurse's Notes [facility] Name: Noé Garcia Age: 57 yrs Sex: Male : 1960 Arrival Date: 03/01/2018 Time: 11:07 Bed 6 Private MD: Diagnosis: Graft Occlusion;Peripheral vascular disease, unspecified Presentation: 03/01 11:09 Presenting complaint: Patient states: I had surgery on my on right foot 4 months ago la1 and I was never able to follow up, I have been trying to take care of it on my own but now I am having increased pain and decreased ROM. Transition of care: patient was not received from another setting of care. Onset of symptoms was March 01, 2018. Risk Assessment: Do you want to hurt yourself or someone else? Patient reports no desire to harm self or others. Initial Sepsis Screen: Does the patient meet any 2 criteria? No. Patient's initial sepsis screen is negative. Does the patient have a suspected source of infection? No. Patient's initial sepsis screen is negative. Care prior to arrival: None. 11:09 Method Of Arrival: Wheelchair la1 11:09 Acuity: BINH 3 la1 Historical: - Allergies: 11:11 No Known Allergies; la1 - PMHx: 11:11 Hypertension; la1 - Immunization history:: Adult Immunizations up to date. - Social history:: Smoking status: Patient uses tobacco products, smokes one-half pack cigarettes per day, Patient uses Patient/guardian denies using. - Ebola Screening: : No symptoms or risks identified at this time. Screenin:35 Abuse screen: Denies threats or abuse. Denies injuries from another. Nutritional sv screening: No deficits noted. Tuberculosis screening: No symptoms or risk factors identified. Fall Risk None identified. Assessment: 11:25 General: Appears in no apparent distress. uncomfortable, slender, Behavior is calm, sv cooperative, appropriate for age. Pain: Complains of pain in right foot Pain currently is 5 out of 10 on a pain scale. Quality of pain is described as tender, Is intermittent, episodic, Aggravated by increased activity, weight bearing. Neuro: Level of Consciousness is awake, alert, obeys commands, Oriented to person, place, time, situation, Moves all extremities. Cardiovascular: Patient's skin is warm and dry. Pulses are 2+ in right posterior tibial artery and right dorsalis pedis artery done by Doppler. Respiratory: Respiratory effort is even, unlabored, Respiratory pattern is regular, symmetrical. Derm: Skin is normal, Wound noted dorsum of right foot Wound is unstageable wound, eschar present on wound bed. Pt reports that it started out "tiny" about 3.5 months ago and has progressively gotten worse. Pt reports that he's been rubbing and scraping his right foot with dial soap. Musculoskeletal: Range of motion: intact in all extremities. 13:17 Reassessment: Patient appears in no apparent distress at this time. No changes from sv previously documented assessment. Patient and/or family updated on plan of care and expected duration. Pain level reassessed. Patient is alert, oriented x 3, equal unlabored respirations, skin warm/dry/pink. 14:26 Reassessment: Patient appears in no apparent distress at this time. No changes from sv previously documented assessment. Patient and/or family updated on plan of care and expected duration. Pain level reassessed. Patient is alert, oriented x 3, equal unlabored respirations, skin warm/dry/pink. Vital Signs: 11:11 BP 138 / 96; Pulse 85; Resp 16; Temp 97.8; Pulse Ox 98% on R/A; Weight 65.77 kg; Height la1 5 ft. 9 in. (175.26 cm); 13:16 BP 153 / 89; Pulse 77; Resp 16; Pulse Ox 100% on R/A; sv 14:26 BP 142 / 88; Pulse 78; Resp 16; Pulse Ox 99% ; sv 11:11 Body Mass Index 21.41 (65.77 kg, 175.26 cm) la1 ED Course: 11:07 Patient arrived in ED. as 11:10 Triage completed. la1 11:11 Arm band placed on right wrist. la1 11:18 Alon Ayers PA is PHCP. [facility] 11:18 London Bean MD is Attending Physician. jm 11:34 Bina Ayala, CRISTINA is Primary Nurse. sv 11:35 Patient has correct armband on for positive identification. Bed in low position. Door sv closed. Head of bed elevated. 11:45 Initial lab(s) drawn, by me, sent to lab. First set of blood cultures drawn by me. sv Inserted saline lock: 20 gauge in right antecubital area, using aseptic technique. Blood collected. Flushed right antecubital with 5 ml normal saline. 12:00 Second set of blood cultures drawn by me. sv 12:02 Foot Right 3 View XRAY In Process Unspecified. EDMS 12:10 Awaiting: US. sv 13:09 Ultrasound completed. Patient tolerated well. Notified GLASS WORKER/PA alon. sg3 13:13 US Extremity Venous Unilateral Ltd In Process Unspecified. EDMS 13:14 US LE Artery Uni Ltd In Process Unspecified. EDMS 13:17 Awaiting radiology results. Awaiting re-evaluation by ER provider. sv 13:39 initiated a transfer with Sandy at the [facility]. eb 13:[address] Mcneil the vascular surgeon sales applications engineer from [facility] with Alon ALVAREZ for eb patient transfer consultation. 14:00 Sandy from the [facility] transfer center called and said Dr. Mcneil declined the patient eb in transfer/ Advised the PA to have patient follow up in the clinic on Friday. 14:26 No provider procedures requiring assistance completed. IV discontinued, intact, sv bleeding controlled, No redness/swelling at site. Pressure dressing applied. Administered Medications: No medications were administered Outcome: 14:07 Discharge ordered by . katelyn 14:26 Discharged to home via wheelchair. sv 14:26 Condition: stable 14:26 Discharge instructions given to patient, Instructed on discharge instructions, follow up and referral plans. no drinking with medication, no driving heavy equipment, medication usage, Pt stated he will call tomorrow to go see his surgeon at [facility] Demonstrated understanding of instructions, follow-up care, medications, Prescriptions given X 1. 14:27 Patient left the ED. sv Signatures: Dispatcher [employer] EDBina Whitaker, RN RN Alon Urrutia PA PA jmm Martinez, Amelia as Attema, Lee RN RN Gela Stanley 3 Samira Bradley
--- NOTE | 2018-03-01 14:07 | EDPHYS ---
Physician Documentation [facility] Name: Noé Garcia Age: 57 yrs Sex: Male : 1960 Arrival Date: 03/01/2018 Time: 11:07 Bed 6 Private MD: ED Physician London Bean HPI: 03/01 11:47 This 57 yrs old Black Male presents to ER via Wheelchair with complaints of Wound jmm Check, Feet Swelling. 11:47 Patient presents to ED for recheck of: foot ulcer. The affected area is on the right [facility] foot. This is a 57 year old male with a history of HTN, PVD that presents to the ED with redness and pain to the right lower extremity for the past month and a half with increased pain. Patient states that he had a bypass surgery performed by Dr. Rajni novak 4 months ago. . Historical: - Allergies: 11:11 No Known Allergies; la1 - PMHx: 11:11 Hypertension; la1 - Immunization history:: Adult Immunizations up to date. - Social history:: Smoking status: Patient uses tobacco products, smokes one-half pack cigarettes per day, Patient uses Patient/guardian denies using. - Ebola Screening: : No symptoms or risks identified at this time. ROS: 11:47 Constitutional: Negative for fever, chills, and weight loss, Cardiovascular: Negative jmm for chest pain, palpitations, and edema, Respiratory: Negative for shortness of breath, cough, wheezing, and pleuritic chest pain. 11:47 MS/extremity: Positive for pain, tenderness. 11:47 Skin: Positive for ulcer. 11:47 All other systems are negative. Exam: 11:47 Head/Face: atraumatic. Chest/axilla: Normal chest wall appearance and motion. jmm Cardiovascular: Regular rate and rhythm. No edema appreciated Respiratory: Normal respirations, no respiratory distress appreciated 11:47 Constitutional: The patient appears in no acute distress, alert, awake. 11:47 Skin: ulcer noted to the dorsum of the right foot, erythema noted to the right lower extremity, TTP. 11:47 Neuro: Orientation: is normal, Mentation: is normal, Memory: is normal. 11:47 Psych: Behavior/mood is pleasant, cooperative. Vital Signs: 11:11 BP 138 / 96; Pulse 85; Resp 16; Temp 97.8; Pulse Ox 98% on R/A; Weight 65.77 kg; Height la1 5 ft. 9 in. (175.26 cm); 13:16 BP 153 / 89; Pulse 77; Resp 16; Pulse Ox 100% on R/A; sv 14:26 BP 142 / 88; Pulse 78; Resp 16; Pulse Ox 99% ; sv 11:11 Body Mass Index 21.41 (65.77 kg, 175.26 cm) la1 MDM: 11:32 Patient medically screened. [facility] 14:00 Counseling: I had a detailed discussion with the patient and/or guardian regarding: the [facility] historical points, exam findings, and any diagnostic results supporting the discharge/admit diagnosis, lab results, radiology results, the need for outpatient follow up, to return to the emergency department if symptoms worsen or persist or if there are any questions or concerns that arise at home. 14:00 ED course: I discussed US results with Dr. Mcneil (Vascular Surgery) whom recommended [facility] outpatient follow up in clinic. I discussed this with the patient as well. Patient stated he will follow up Friday. patient was otherwise given strict return precautions for increased pain, numbness, or coolness to the extremity. Patient also advised to resume plavix as prescribed by Dr. Jeff. . 14:05 Data reviewed: vital signs, nurses notes. [facility] 03/01 11:37 Order name: CBC with Diff; Complete Time: 12:53 [facility] 03/01 11:37 Order name: CMP; Complete Time: 12:53 [facility] 03/01 11:37 Order name: Procalcitonin; Complete Time: 13:22 [facility] 03/01 11:37 Order name: US Extremity Venous Unilateral Ltd; Complete Time: 13:22 [facility] 03/01 11:37 Order name: Blood Culture Adult (2) [facility] 03/01 11:37 Order name: Lactate; Complete Time: 12:53 [facility] 03/01 11:37 Order name: Saline Lock; Complete Time: 12:01 [facility] 03/01 11:37 Order name: US LE Artery Uni Ltd; Complete Time: 13:32 [facility] 03/01 11:37 Order name: Foot Right 3 View XRAY; Complete Time: 13:17 [facility] Administered Medications: No medications were administered Disposition: 18:30 Co-signature as Attending Physician, London Bean MD Available for consultation at ps1 all times. . Disposition: 03/01/18 14:07 Discharged to Home. Impression: Graft Occlusion, Peripheral vascular disease, unspecified. - Condition is Stable. - Discharge Instructions: Intermittent Claudication, Peripheral Vascular Disease, [id number]. - Prescriptions for Tylenol- Codeine #3 300-30 mg Oral Tablet - take 1 tablet by ORAL route every 6 hours As needed; 12 tablet. - Medication Reconciliation Form, Thank You Letter, Antibiotic Education, Prescription Opioid Use form. - Follow up: Private Physician; When: 2 - 3 days; Reason: Recheck today's complaints, Continuance of care, Re-evaluation by your physician. Signatures: Dispatcher [employer] EDBina Whitaker, RN RN Herman Urrutia PA PA jmm Attema, Lee, RN RN la1 London Bean MD MD ps1 Corrections: (The following items were deleted from the chart) 14:08 14:07 03/01/2018 14:07 Discharged to Home. Impression: Graft Occlusion. Condition is [facility] Stable. Forms are Medication Reconciliation Form, Thank You Letter, Antibiotic Education, Prescription Opioid Use. Follow up: Private Physician; When: 2 - 3 days; Reason: Recheck today's complaints, Continuance of care, Re-evaluation by your physician. [facility] 14:27 14:08 03/01/2018 14:07 Discharged to Home. Impression: Graft Occlusion; Peripheral sv vascular disease, unspecified. Condition is Stable. Forms are Medication Reconciliation Form, Thank You Letter, Antibiotic Education, Prescription Opioid Use. Follow up: Private Physician; When: 2 - 3 days; Reason: Recheck today's complaints, Continuance of care, Re-evaluation by your physician. [facility]
== END 2018-03-01 14:27 | disposition home or self-care (01) ==
LOC: ER 11:04
DX: T86.829 Unspecified complication of skin graft (allograft) (autograft) (principal); I73.9 Peripheral vascular disease, unspecified; F17.210 Nicotine dependence, cigarettes, uncomplicated; Z98.890 Other specified postprocedural states
CPT/HCPCS: 36415; 80053; 83605; 84145; 85025; 87040; 93926; 93971; 99284

== ENCOUNTER 2018-11-24 09:51 | Emergency (ER) | payer SELFPAY ==
--- OUTSIDE RECORDS SUMMARY | 2018-11-24 10:11 | XMS REPORT | Clinical Summary ---
:1960 Author Organization [facility] Address [address] [place] [address] Care Team Providers Name Role Phone Garett Royal Primary Care Provider Daniel Coulter Unavailable Allergies No Known Allergies Medications Medication Sig Dispensed Refills Start Date End Date Status aspirin 81 MG EC Take 81 mg by 0 Active tablet mouth daily. atorvastatin Take 1 tablet 30 tablet 11 09/30/2017 09/30/2018 (LIPITOR) 40 MG (40 mg total) tablet by mouth nightly. clopidogrel (PLAVIX) Take 1 tablet 30 tablet 11 10/01/2017 10/01/2018 75 mg tablet (75 mg total) by mouth daily. mINOCYCLine Take 1 capsule 14 capsule 0 03/06/2018 03/13/2018 (MINOCIN,DYNACIN) 100 (100 mg total) MG capsule by mouth every 12 (twelve) hours for 7 days. 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 PVD (peripheral vascular disease) 09/25/2017 Respiratory insufficiency 09/25/2017 Hypertension Peripheral vascular disease Hyperlipidemia Encounters Date Type Specialty Care Team Description 03/04/2018 Surgery Isael Rocha ANGIOS / MD Horacio AORTOGRAM 03/02/2018 - Hospital Encounter Cardiology Jersey Rodrigues Arterial occlusion , lower extremity (HCC) (Primary Dx); 03/07/2018 MD Addi Acute leg pain, right; Philippe Evans, Peripheral vascular disease (HCC); Skin ulcer of right foot, limited to breakdown of skin (HCC) Tony Valdes MD after 11/23/2017 Family History Medical History Relation Name Comments Cancer Mother throat cancer Relation Name Status Comments Mother Social History Tobacco Use Types Packs/Day Years Used Date Former Smoker 1 20 Quit: 09/23/2017 Smokeless Tobacco: Never Used Tobacco Cessation: Counseling Given: Yes Alcohol Use Drinks/Week oz/Week Comments No Sex Assigned at Date Recorded Not on file Job Start Date Occupation Industry Not on file Not on file Not on file Travel History Travel Start Travel End No recent travel history available. Last Filed Vital Signs Vital Sign Reading Time Taken Blood Pressure 146/86 03/07/2018 8:00 AM CDT Pulse 80 03/07/2018 8:00 AM CDT Temperature 36.8 C (98.2 F) 03/07/2018 8:00 AM CDT Respiratory Rate 18 03/07/2018 8:00 AM CDT Oxygen Saturation 97% 03/07/2018 8:00 AM CDT Inhaled Oxygen Concentration - - Weight 58.8 kg (129 lb 9.6 oz) 03/07/2018 8:00 AM CDT Height 175.3 cm (5' 9") 03/02/2018 10:57 PM CDT Body Mass Index 19.14 03/07/2018 8:00 AM CDT Plan of Treatment Not on file Implants Implanted Type Area Guide Dog Mobility Instructor Device Identifier Shelf Model / Expiration Serial / Lot Date Grft Eptfe-Heparin Rng [id number] - [id number] Graft/P Right: WL GORE & 05/12/2021 [id number] / Implanted: Qty: 1 on 09/25/2017 by Javi Urban MD [facility] Leg ASSC:MED PRDT [id number] / Synergy Stents- Left: [employer]ON [id number] 12/24/2019 [id number] / Implanted: Qty: 1 on 03/04/2018 by Isael Rocha MD [employer] / y [id number] Stents- COOK VASCULAR [id number] 09/19/2019 [id number] / Implanted: Qty: 1 on 03/04/2018 by Isael Rocha MD Periphe / ral [id number] Maquet Hemashield Gold Knitted Microvel Double Velour Vascular Graft 7mm X 30cm Right: [employer] 02/22/2022 [id number] / Implanted: Qty: 1 on 09/25/2017 by Javi Urban MD Leg [id number] / Procedures Procedure Name Priority Date/Time Associated Diagnosis Comments RHYTHM STRIP - SCAN 09/08/2018 12:36 PM CDT RHYTHM STRIP - SCAN 08/24/2018 11:30 AM CDT CARDIAC CATH REPORT - 03/10/2018 12:01 SCAN PM CDT RHYTHM STRIP - SCAN 03/10/2018 12:01 PM CDT CBC W/PLT COUNT & Routine 03/07/2018 4:06 Results for this AUTO DIFFERENTIAL AM CDT procedure are in the results section. CBC W/PLT COUNT & Routine 03/07/2018 4:06 Results for this AUTO DIFFERENTIAL AM CDT procedure are in the results section. BASIC METABOLIC PANEL Routine 03/07/2018 4:06 Results for this (7) AM CDT procedure are in the results section. BLOOD CULTURE Routine 03/06/2018 11:31 Results for this AM CDT procedure are in the results section. BLOOD CULTURE Routine 03/06/2018 11:19 Results for this AM CDT procedure are in the results section. ARTERIAL (YOSVANY'S W/ STAT 03/06/2018 10:32 Results for this DOPPLER) ONLY AM CDT procedure are in the results section. APTT Routine 03/06/2018 6:42 Results for this AM CDT procedure are in the results section. CBC W/PLT COUNT & Routine 03/06/2018 4:26 Results for this AUTO DIFFERENTIAL AM CDT procedure are in the results section. APTT Routine 03/06/2018 4:26 Results for this AM CDT procedure are in the results section. CBC W/PLT COUNT & Routine 03/06/2018 4:26 Results for this AUTO DIFFERENTIAL AM CDT procedure are in the results section. BASIC METABOLIC PANEL Routine 03/06/2018 4:26 Results for this (7) AM CDT procedure are in the results section. APTT Routine 03/06/2018 4:26 Results for this AM CDT procedure are in the results section. APTT Routine 03/05/2018 9:04 Results for this PM CDT procedure are in the results section. APTT Routine 03/05/2018 3:17 Results for this PM CDT procedure are in the results section. APTT Routine 03/05/2018 9:24 Results for this AM CDT procedure are in the results section. CBC W/PLT COUNT & Routine 03/05/2018 5:17 Results for this AUTO DIFFERENTIAL AM CDT procedure are in the results section. CBC W/PLT COUNT & Routine 03/05/2018 5:17 Results for this AUTO DIFFERENTIAL AM CDT procedure are in the results section. BASIC METABOLIC PANEL Routine 03/05/2018 5:17 Results for this (7) AM CDT procedure are in the results section. TRANSFUSION SERVICE 03/04/2018 6:00 REPORT - SCAN PM CDT POCT-ACT Routine 03/04/2018 3:45 Results for this PM CDT procedure are in the results section. 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 CBC W/PLT COUNT & AUTO Routine 03/04/2018 2:10 AM CDT Results for this DIFFERENTIAL procedure are in the results section. BASIC METABOLIC PANEL (7) Routine 03/04/2018 2:10 AM CDT APTT Routine 03/04/2018 2:10 AM CDT APTT Routine 03/03/2018 10:[address]/CTA AAA AND RUNOFF STAT 03/03/2018 7:18 PM CDT TYPE AND SCREEN, AUTOMATED STAT 03/03/2018 2:39 PM CDT APTT Routine 03/03/2018 2:39 PM CDT APTT Routine 03/03/2018 7:59 AM CDT XR FOOT RIGHT 3 VIEW Routine 03/03/2018 7:03 AM CDT APTT Routine 03/03/2018 5:11 AM CDT CBC W/PLT COUNT & AUTO Routine 03/03/2018 4:08 AM CDT Results for this DIFFERENTIAL procedure are in the results section. CBC W/PLT COUNT & AUTO Routine 03/03/2018 4:08 AM CDT Results for this DIFFERENTIAL procedure are in the results section. BASIC METABOLIC PANEL (7) Routine 03/03/2018 4:08 AM CDT APTT STAT 03/02/2018 10:13 PM CDT BLOOD CULTURE STAT 03/02/2018 10:13 PM CDT ARTERIAL DOPPLER LEG, RIGHT STAT 03/02/2018 9:28 PM CDT VENOUS DOPPLER LEG, RIGHT STAT 03/02/2018 8:00 PM CDT CBC W/PLT COUNT & AUTO STAT 03/02/2018 6:07 PM CDT Results for this DIFFERENTIAL procedure are in the results section. C-REACTIVE PROTEIN STAT 03/02/2018 6:07 PM CDT CBC W/PLT COUNT & AUTO STAT 03/02/2018 6:07 PM CDT Results for this DIFFERENTIAL procedure are in the results section. BASIC METABOLIC PANEL (7) STAT 03/02/2018 6:07 PM CDT after 11/23/2017 Results RHYTHM STRIP - SCAN (09/08/2018 12:36 PM CDT)Only the most recent of3 resultswithin the time period is included. Narrative Performed At CARDIAC CATH REPORT - SCAN (03/10/2018 12:01 PM CDT) Narrative Performed At CBC with platelet count + automated diff (03/07/2018 4:06 AM CDT)Only the most recent of6 resultswithin the time period is included. WBC 10.2 3.5 - 10.5 K/L [facility] RBC 3.90 (L) 4.63 - 6.08 M/L [facility] Hemoglobin 12.0 (L) 13.7 - 17.5 GM/DL [facility] Hematocrit 35.3 (L) 40.1 - 51.0 % [facility] MCV 90.5 79.0 - 92.2 fL [facility] MCH 30.8 25.7 - 32.2 pg [facility] MCHC 34.0 32.3 - 36.5 GM/DL [facility] RDW 13.3 11.6 - 14.4 % [facility] Platelets 233 150 - 450 K/CU MM [facility] MPV 10.9 9.4 - 12.4 fL [facility] nRBC 0 0 - 0 /100 WBC [facility] % Neutros 58 % [facility] % Lymphs 25 % [facility] % Monos 11 % [facility] % Eos 5 % [facility] % Baso 1 % [facility] # Neutros 5.92 (H) 1.78 - 5.38 K/L [facility] # Lymphs 2.51 1.32 - 3.57 K/L [facility] # Monos 1.12 (H) 0.30 - 0.82 K/L [facility] # Eos 0.50 0.04 - 0.54 K/L [facility] # Baso 0.06 0.01 - 0.08 K/L [facility] Immature Granulocytes-Relative 0 0 - 1 % [facility] Specimen Blood Performing Organization Address City/State/Zipcode Phone Number [facility] [address] [address] [phone] ADDY Basic metabolic panel (03/07/2018 4:06 AM CDT)Only the most recent of6 resultswithin the time period is included. Sodium 139 136 - 145 meq/L [facility] Potassium 3.5 3.5 - 5.1 meq/L [facility] Chloride 105 98 - 107 meq/L [facility] CO2 25 22 - 29 meq/L [facility] BUN 8 7 - 21 mg/dL [facility] Creatinine 0.78 0.57 - 1.25 mg/dL [facility] Glucose 119 (H) 70 - 105 mg/dL [facility] Calcium 8.9 8.4 - 10.2 mg/dL [facility] EGFR 124Comment: ESTIMATED GFR IS mL/min/1.73 sq m [facility] NOT ACCURATE CREATININE [facility] CLEARANCE IN PREDICTING GLOMERULAR FILTRATION RATE. ESTIMATED GFR IS NOT APPLICABLE FOR DIALYSIS PATIENTS. Specimen Blood Performing Organization Address City/State/Zipcode Phone Number [address] [address] [phone] ADDY Blood culture (03/06/2018 11:31 AM CDT)Only the most recent of3 resultswithin the time period is included. Result No growth in 5 days [facility] Specimen Blood Performing Organization Address City/State/Zipcode Phone Number [address] [phone] [facility] YOSVANY's Only(Ankle/Brachial Index) (03/06/2018 10:32 AM CDT) Ejection Fraction [facility] ECHO HEARTLAB MKCKESSON CPACS Specimen Impressions Performed At Right Impression [facility] CPA 1. The posterior tibial artery had abnormal monophasic Doppler waveforms. 2. The PT pressure is 90 mmHg with an YOSVANY of 0.57, within severe obstruction range. 3. The DP YOSVANY is unobtainable due to absent Doppler signal. 4. The digits have no obtainable flow by PPG waveforms. Left Impression 1. The posterior tibial artery had abnormal monophasic Doppler waveforms. 2. The PT pressure is 115 mmHg with an YOSVANY of 0.72, within moderate obstruction range. 3. The DP YOSVANY is unobtainable due to absent Doppler signal. 4. The great toe pressure is 44 mmHg with an abnormal TBI of 0.28. 5. The 1st digit has decreased flow by PPG waveforms. 6. The 2nd, 3rd, 4th and 5th digits have no obtainable flow by PPG waveforms. Conclusions Summary Arterial pressures and Doppler waveforms were performed bilaterally. Adequate Doppler waveforms were obtained. On the right side, the PT YOSVANY was within severe obstruction range. The DP YOSVANY was unobtainable due to absent Doppler signal. The digits had no obtainable flow by PPG waveforms. On the left side, the PT YOSVANY was within moderate obstruction range. The DP YOSVANY was unobtainable due to absent Doppler signal. The 1st digit had decreased flow and the remaining digits had no obtainable flow by PPG waveforms. Signature Velocities are measured in cm/s ; Diameters are measured in cm Narrative Performed At LAB - Lower Extremity Arterial Procedure [facility] Demographics Patient NATALIA Trejo Date of Study 03/06/2018 NORAH 57 Visit [id number] Male of 1960 Number Referring Rocha IsaelReji Number [id number] Physician Meter Supervisor Evelia LisatingJon Ramirez T Physician , CITLALI Procedure Type of Study: Extremities Arteries: Lower Extremity Arterial Procedure, ARTERIAL (YOSVANY'S W/DOPPLER) ONLY. Indications for Study:S/P drug coated balloon angioplasty of right superficial femoral artery . Patient Status:STAT. Study Location:Vascular Lab. Technical Quality:Adequate visualization. Risk Factors History of Disease + +----+ + !Diagnosis!Date!Comments ! + +----+ + !History/Risk !!Claudication, HLD, HTN, PVD, Stroke, Right Femoral to! !Factors: !!Popliteal bypass graft, Right Femoral to Left Femoral! ! !!bypass graft ! + +----+ + Procedure Note Interface, External Ris In - 03/06/2018 11:59 AM CDT [facility] LAB - Lower Extremity Arterial Procedure Demographics Patient Name NATALIA JORGE Date of Study 03/06/2018 NORAH Age 57 Visit Number [id number] Gender Male Date of 1960 Number Referring Josefina Kirkland MD Room Number [id number] Physician Meter Supervisor Evelia Cheng Interpreting BOBY OneilT Physician , CITLALI Procedure Type of Study: Extremities Arteries: Lower Extremity Arterial Procedure, ARTERIAL (YOSVANY'S W/DOPPLER) ONLY. Indications for Study:S/P drug coated balloon angioplasty of right superficial femoral artery . Patient Status:STAT. Study Location:Vascular Lab. Technical Quality:Adequate visualization. Risk Factors History of Disease + +----+ + !Diagnosis !Date!Comments ! + +----+ + !History/Risk ! !Claudication, HLD, HTN, PVD, Stroke, Right Femoral to! !Factors: ! !Popliteal bypass graft, Right Femoral to Left Femoral! ! ! !bypass graft ! + +----+ + Impressions Right Impression 1. The posterior tibial artery had abnormal monophasic Doppler waveforms. 2. The PT pressure is 90 mmHg with an YOSVANY of 0.57, within severe obstruction range. 3. The DP YOSVANY is unobtainable due to absent Doppler signal. 4. The digits have no obtainable flow by PPG waveforms. Left Impression 1. The posterior tibial artery had abnormal monophasic Doppler waveforms. 2. The PT pressure is 115 mmHg with an YOSVANY of 0.72, within moderate obstruction range. 3. The DP YOSVANY is unobtainable due to absent Doppler signal. 4. The great toe pressure is 44 mmHg with an abnormal TBI of 0.28. 5. The 1st digit has decreased flow by PPG waveforms. 6. The 2nd, 3rd, 4th and 5th digits have no obtainable flow by PPG waveforms. Conclusions Summary Arterial pressures and Doppler waveforms were performed bilaterally. Adequate Doppler waveforms were obtained. On the right side, the PT YOSVANY was within severe obstruction range. The DP YOSVANY was unobtainable due to absent Doppler signal. The digits had no obtainable flow by PPG waveforms. On the left side, the PT YOSVANY was within moderate obstruction range. The DP YOSVANY was unobtainable due to absent Doppler signal. The 1st digit had decreased flow and the remaining digits had no obtainable flow by PPG waveforms. Signature Velocities are measured in cm/s ; Diameters are measured in cm Performing Organization Address City/[facility] Phone Number [facility] E[facility]ART[facility] MKCKESSON CPACS aPTT (03/06/2018 6:42 AM CDT)Only the most recent of13 resultswithin the time period is included. PTT 107.0 (H) 22.5 - 36.0 seconds [facility] Specimen Blood Performing Organization Address [facility] Phone Number [address] [address] [phone] CENTER TRANSFUSION SERVICE REPORT - SCAN (03/04/2018 6:00 PM CDT) Narrative Performed At POC ACTIVATED CLOTTING TIME (03/04/2018 3:45 PM CDT) Activated Clotting Time 269Comment: TESTED AT sec [address] [place] [address] Specimen Blood Performing Organization Address [facility]/Zipcode Phone Number [address] [address] [phone] CENTER CTA AAA and Runoff (03/03/2018 7:18 PM CDT) Specimen Narrative Performed At Addendum Begins RidePost RIS REPORT STATUS:A Addendum: I reviewed the nonvascular features of this examination and concur with Dr. Restrepo's report. Signed: Juan Esparza MD Report Verified Date/Time:03/04/2018 15:50:09 Reading Location: [place] [address] Angio Body Reading Room Addendum Ends FINAL REPORT CT angiography of the abdominal aorta and with runoff, 03 March 2018 INDICATION: This is a 57 year old male with peripheral vascular disease presents for assessment. Patient has symptoms of cold leg - side is not specified.This study is performed in an attempt to avoid an invasive procedure. TECHNIQUE: Spiral acquisition before and during intravenous contrast administration using a Siemens CT scanner. Images were obtained before and during the dynamic passage of intravenous contrast material.Multi-planar 3-D volume-rendering reconstruction was performed using an independent workstation interactively by the interpreting physician as well as the 3-D specialist for optimal visualization of the abdominal aorta, pelvic arteries, and its proximal branches. Please refer to the contrast sheet scanned in the RIS system for the amount and route of contrast given. This exam was performed according to our departmental dose-optimisation programme, which includes automated exposure control, adjustment of the mA and/or kV according to patient size and/or use of iterative reconstruction technique. Dose modulation, iterative reconstruction, and/or weight based adjustment of the mA/kV was utilized to reduce the radiation dose to as low as reasonably achievable. FINDINGS: VASCULAR: The abdominal aorta is normal in course, calibre and contour. Mild noncalcific atherosclerosis and scattered calcification is seen in the course of the abdominal aorta. No ectasia or aneurysmal dilation is seen. There is no evidence of acute aortic pathology, specifically, there is no dissection, intramural haematoma, or contained rupture. Quantitative dimensions of the abdominal aorta are as follows: 1.8 cm at the mesenteric segment; 1.9 cm at the renal segment,; and 1.7 cm at the aortic bifurcation. The coeliac axis, SMA, KITTY are patent. Single left and right renal arteries are seen that are widely patent. Single left and right renal veins are seen draining normally into the IVC. Moderate calcification is seen in the right common iliac artery as well as the left common iliac artery, however, in the very distal left common iliac artery, at image 127, the calcification is substantial, with minimum luminal diameter of approximately 2.2 x 4.7 mm, and may suggest a moderate lesion. The left external iliac artery is calcified and is occluded. Acuity cannot be commented upon. Some enhancement is identified in the left common femoral artery and in fact a femoral to femoral bypass graft is identified that is widely patent. The right external iliac artery also has moderate diffuse calcific and noncalcific atherosclerosis identified. At image 158, the minimum luminal diameter is 4.7 x 2.4 mm when compared to a relatively normal looking segment at its origin of 5.5 x 6.1 mm suggesting at most mild to moderate stenosis only. Haemodynamic significance is difficult to comment upon. The right common femoral artery is widely patent. In the left, the left SFA is essentially occluded. Acuity cannot be commented upon. Correlate with clinical examination. The left profunda system is patent but is a small caliber vessel. Enhancement of the popliteal artery is identified, at image 436, in the proximal left portal artery, above the left knee joint. This suggests reconstitution by surrounding collaterals. The left popliteal artery is patent, until at image 498, at the level of the left knee joint, substantial calcific atherosclerosis is seen making accurate assessment limited that may suggest potential lesion. Remainder of the left popliteal artery is unremarkable. In the left lower extremity, the left tibioperoneal trunk is patent with calcific atherosclerosis identified. The left peroneal artery is well seen down to level of the ankle. The left posterior tibial artery is well seen down to level of the ankle and the plantar arch is seen distally. The left anterior tibial artery is well enhanced by contrast in the proximal two third of the segment and distally, it is better seen in the second dynamic data set. The dorsalis pedis artery is better seen in the second dynamic data set. In the right, the belkofski right SFA is occluded. The right profunda system is unremarkable. There is a femoral to popliteal bypass graft in the right - the exact destination is uncertain, and this graft is occluded. Correlate with operative report. Acuity cannot be commented upon. Correlate with clinical history. Substantial calcific atherosclerosis is seen along the course of the right popliteal artery. In the right lower extremity, there is likely significant disease in the right tibioperoneal trunk and surgical clips are seen at this level. The right anterior tibial artery is well enhanced by contrast indicating reconstitution by surrounding collaterals though the very distal segment in the dorsalis pedis artery is not well appreciated even in the second dynamic data set. The right peroneal artery is a small calibre vessel, well seen down to the level of the ankle. The right posterior tibial artery is well seen down to level of the ankle and the plantar arch is seen distally. NONVASCULAR: The lung bases are unremarkable. In the abdomen, the liver and spleen appears unremarkable. The liver edge is smooth. The gallbladder appears unremarkable. The adrenal glands are not enlarged. The pancreas have no gross abnormality identified. No acute renal pathology is seen and no hydronephrosis or perirenal fluid collection is identified. Bowel is not well assessed by CT angiography as enteric contrast is not given. No obvious bowel dilation is identified. Scattered diverticular disease seen throughout the colon with no evidence of acute diverticulitis. No free air or free fluid is seen in the abdomen and pelvis. The prostate gland is prominent. The bladder is prominent. No significant retroperitoneal adenopathy is identified. In the bony windows, no acute bony pathology is identified. CONCLUSIONS: 1.Atherosclerosis is identified in the abdominal aorta with no acute aortic pathology identified. Quantitative dimensions of the abdominal aorta are as described above. 2.At least moderate calcification is seen in the left and the right common iliac artery. Substantial calcification is seen in the distal left common iliac artery at image 127, that may suggest a moderate lesion. In any case, the left external iliac artery is occluded. A degree of enhancement is identified in the left common femoral artery. While calcific atherosclerosis is seen in the right external iliac artery, no critical lesion is identified. The right common femoral artery is unremarkable. A patent femoral to femoral bypass graft is identified. 3.The belkofski left SFA is occluded. The right SFA is occluded. A probable right femoral to popliteal bypass graft is identified that is also occluded. Acuity cannot be commented upon. Correlate with clinical history. 4.Status of the popliteal arteries as described above. 5.Despite the presence of significant peripheral vascular disease above both knee joints, good bilateral lower extremity runoff is identified,as described above. 6.Other findings as described above. 7.An addendum will be dictated regarding the non-vascular findings by the Compliance Aide Radiologist. Signed: Shwan Restrepo MD Report Verified Date/Time:03/04/2018 07:12:51 Reading Location: [place] [id number] Cardiology MRI Procedure Note Interface, External Ris In - 03/04/2018 3:52 PM CDT Addendum Begins REPORT STATUS:A Addendum: I reviewed the nonvascular features of this examination and concur with Dr. Restrepo's report. Signed: Juan Esparza MD Report Verified Date/Time: 03/04/2018 15:50:09 Reading Location: [facility] P048 Angio Body Reading Room Addendum Ends FINAL REPORT CT angiography of the abdominal aorta and with runoff, 03 March 2018 INDICATION: This is a 57 year old male with peripheral vascular disease presents for assessment. Patient has symptoms of cold leg - side is not specified. This study is performed in an attempt to avoid an invasive procedure. TECHNIQUE: Spiral acquisition before and during intravenous contrast administration using a Siemens CT scanner. Images were obtained before and during the dynamic passage of intravenous contrast material. Multi-planar 3-D volume-rendering reconstruction was performed using an independent workstation interactively by the interpreting physician as well as the 3-D specialist for optimal visualization of the abdominal aorta, pelvic arteries, and its proximal branches. Please refer to the contrast sheet scanned in the RIS system for the amount and route of contrast given. This exam was performed according to our departmental dose-optimisation programme, which includes automated exposure control, adjustment of the mA and/or kV according to patient size and/or use of iterative reconstruction technique. Dose modulation, iterative reconstruction, and/or weight based adjustment of the mA/kV was utilized to reduce the radiation dose to as low as reasonably achievable. FINDINGS: VASCULAR: The abdominal aorta is normal in course, calibre and contour. Mild noncalcific atherosclerosis and scattered calcification is seen in the course of the abdominal aorta. No ectasia or aneurysmal dilation is seen. There is no evidence of acute aortic pathology, specifically, there is no dissection, intramural haematoma, or contained rupture. Quantitative dimensions of the abdominal aorta are as follows: 1.8 cm at the mesenteric segment; 1.9 cm at the renal segment,; and 1.7 cm at the aortic bifurcation. The coeliac axis, SMA, KITTY are patent. Single left and right renal arteries are seen that are widely patent. Single left and right renal veins are seen draining normally into the IVC. Moderate calcification is seen in the right common iliac artery as well as the left common iliac artery, however, in the very distal left common iliac artery, at image 127, the calcification is substantial, with minimum luminal diameter of approximately 2.2 x 4.7 mm, and may suggest a moderate lesion. The left external iliac artery is calcified and is occluded. Acuity cannot be commented upon. Some enhancement is identified in the left common femoral artery and in fact a femoral to femoral bypass graft is identified that is widely patent. The right external iliac artery also has moderate diffuse calcific and noncalcific atherosclerosis identified. At image 158, the minimum luminal diameter is 4.7 x 2.4 mm when compared to a relatively normal looking segment at its origin of 5.5 x 6.1 mm suggesting at most mild to moderate stenosis only. Haemodynamic significance is difficult to comment upon. The right common femoral artery is widely patent. In the left, the left SFA is essentially occluded. Acuity cannot be commented upon. Correlate with clinical examination. The left profunda system is patent but is a small caliber vessel. Enhancement of the popliteal artery is identified, at image 436, in the proximal left portal artery, above the left knee joint. This suggests reconstitution by surrounding collaterals. The left popliteal artery is patent, until at image 498, at the level of the left knee joint, substantial calcific atherosclerosis is seen making accurate assessment limited that may suggest potential lesion. Remainder of the left popliteal artery is unremarkable. In the left lower extremity, the left tibioperoneal trunk is patent with calcific atherosclerosis identified. The left peroneal artery is well seen down to level of the ankle. The left posterior tibial artery is well seen down to level of the ankle and the plantar arch is seen distally. The left anterior tibial artery is well enhanced by contrast in the proximal two third of the segment and distally, it is better seen in the second dynamic data set. The dorsalis pedis artery is better seen in the second dynamic data set. In the right, the belkofski right SFA is occluded. The right profunda system is unremarkable. There is a femoral to popliteal bypass graft in the right - the exact destination is uncertain, and this graft is occluded. Correlate with operative report. Acuity cannot be commented upon. Correlate with clinical history. Substantial calcific atherosclerosis is seen along the course of the right popliteal artery. In the right lower extremity, there is likely significant disease in the right tibioperoneal trunk and surgical clips are seen at this level. The right anterior tibial artery is well enhanced by contrast indicating reconstitution by surrounding collaterals though the very distal segment in the dorsalis pedis artery is not well appreciated even in the second dynamic data set. The right peroneal artery is a small calibre vessel, well seen down to the level of the ankle. The right posterior tibial artery is well seen down to level of the ankle and the plantar arch is seen distally. NONVASCULAR: The lung bases are unremarkable. In the abdomen, the liver and spleen appears unremarkable. The liver edge is smooth. The gallbladder appears unremarkable. The adrenal glands are not enlarged. The pancreas have no gross abnormality identified. No acute renal pathology is seen and no hydronephrosis or perirenal fluid collection is identified. Bowel is not well assessed by CT angiography as enteric contrast is not given. No obvious bowel dilation is identified. Scattered diverticular disease seen throughout the colon with no evidence of acute diverticulitis. No free air or free fluid is seen in the abdomen and pelvis. The prostate gland is prominent. The bladder is prominent. No significant retroperitoneal adenopathy is identified. In the bony windows, no acute bony pathology is identified. CONCLUSIONS: 1. Atherosclerosis is identified in the abdominal aorta with no acute aortic pathology identified. Quantitative dimensions of the abdominal aorta are as described above. 2. At least moderate calcification is seen in the left and the right common iliac artery. Substantial calcification is seen in the distal left common iliac artery at image 127, that may suggest a moderate lesion. In any case, the left external iliac artery is occluded. A degree of enhancement is identified in the left common femoral artery. While calcific atherosclerosis is seen in the right external iliac artery, no critical lesion is identified. The right common femoral artery is unremarkable. A patent femoral to femoral bypass graft is identified. 3. The belkofski left SFA is occluded. The right SFA is occluded. A probable right femoral to popliteal bypass graft is identified that is also occluded. Acuity cannot be commented upon. Correlate with clinical history. 4. Status of the popliteal arteries as described above. 5. Despite the presence of significant peripheral vascular disease above both knee joints, good bilateral lower extremity runoff is identified, as described above. 6. Other findings as described above. 7. An addendum will be dictated regarding the non-vascular findings by the Compliance Aide Radiologist. Signed: Shawn Restrepo MD Report Verified Date/Time: 03/04/2018 07:12:51 Reading Location: [facility] B1 P047 Cardiology MRI Performing Organization Address City/State/Zipcode Phone Number GE RIS Type and screen, automated (03/03/2018 2:39 PM CDT) ABO/RH AUTOMATED (BEAKER) A POSITIVE [facility] Ab Scrn NEGATIVE [facility] Specimen Blood Performing Organization Address City/[facility]/Zipcode Phone Number [facility] [address] [place] [address] XR foot 3 views right (03/03/2018 7:03 AM CDT) Specimen Narrative Performed At FINAL REPORT [email or web address] TECHNIQUE: Frontal, lateral, and oblique radiographs of the right foot dated 03/03/2018 HISTORY: Foot ulcer COMPARISON: None. FINDINGS: No fracture or dislocation. Bones are osteopenic. There are degenerative changes of the first metatarsophalangeal joint. Lisfranc joint is well aligned on these nonstress views. No bone erosion or soft tissue nodule seen. No radiodense foreign body or subcutaneous emphysema. IMPRESSION: No fracture or dislocation. Bones are osteopenic. There is concern for osteomyelitis, recommend a nuclear medicine or MRI. Signed: Shantanu Ryan MD Report Verified Date/Time:03/03/2018 08:43:54 Reading Location: [facility] Radiology Reading Room Procedure Note Interface, External Ris In - 03/03/2018 8:46 AM CDT FINAL REPORT TECHNIQUE: Frontal, lateral, and oblique radiographs of the right foot dated 03/03/2018 HISTORY: Foot ulcer COMPARISON: None. FINDINGS: No fracture or dislocation. Bones are osteopenic. There are degenerative changes of the first metatarsophalangeal joint. Lisfranc joint is well aligned on these nonstress views. No bone erosion or soft tissue nodule seen. No radiodense foreign body or subcutaneous emphysema. IMPRESSION: No fracture or dislocation. Bones are osteopenic. There is concern for osteomyelitis, recommend a nuclear medicine or MRI. Signed: Shantanu Ryan MD Report Verified Date/Time: 03/03/2018 08:43:54 Reading Location: [facility] Radiology Reading Room Performing Organization Address City/State/Zipcode Phone Number [email or web address] Arterial doppler leg, right (03/02/2018 9:28 PM CDT) Ejection [facility] ECHO HEARTLAB MKCKESSON CPACS Specimen Impressions Performed At Right Impression [facility] ECHO HEARTLAB [facility] CPACS 1. The right femoral artery to left femoral artery bypass graft is patent. 2. The right femoral artery to popliteal artery bypass is occluded with reconstitution of flow distally (popliteal artery). 3. The common femoral and profunda femoral arteries are patent with monophasic Doppler waveforms. 4. The femoral artery is occluded. 5. The posterior tibial, peroneal and anterior tibial arteries are patent with low velocity, monophasic Doppler waveforms. 6. The PT pressure is 70 mmHg with an YOSVANY of 0.61 and the DP pressure is 81 mmHg with an YOSVANY of 0.71, within moderate obstruction range. 7. The digits have no obtainable flow by PPG waveforms. 8. The great toe pressure and TBI could not be obtained due to no recordable flow. Left Impression 1. Not ordered (For comparison) 2. The PT pressure is 80 mmHg with an YOSVANY of 0.75 and the DP pressure is 80 mmHg with an YOSVANY of 0.70, within moderate obstruction range. 3. The great toe pressure is 33 mmHg with an abnormal TBI of 0.29. 4. The digits have decreased flow by PPG waveforms. Conclusions Summary Arterial pressures and Doppler analysis were performed on the right lower extremity. The arterial exam was technically difficult due to shadowing and edema. The right femoral artery to left femoral artery bypass graft was patent. The right femoral artery to popliteal artery bypass was occluded with reconstitution of flow distally (popliteal artery). The common femoral and profunda femoral arteries were patent with monophasic Doppler waveforms. The femoral artery was occluded. The posterior tibial, peroneal and anterior tibial arteries were patent with low velocity, monophasic Doppler waveforms. The PT and DP YOSVANY's were within moderate obstruction range. The digits had no obtainable flow by PPG waveforms. The great toe pressure and TBI could not be obtained due to no recordable flow. For comparison on the left, the PT and DP YOSVANY's were within the moderate obstruction range, the TBI was abnormal and the digits had decreased flow by PPG waveforms. Signature Velocities are measured in cm/s ; Diameters are measured in cm LE Duplex Measurements Right Left + + + + + + + + + + !Location ! !PSV!EDV !Waveform ! !PSV!EDV !Waveform ! + + + + + + + + + + !Mid Common Femoral ! !72.7 !! ! !67.4 !! ! + + + + + + + + + + !Prox PFA ! !138! ! ! + + + + + + !Prox SFA ! !100! ! ! + + + + + + !Prox Popliteal ! !28.3 !! ! + + + + + + !Dist Popliteal ! !52.3 !! ! + + + + + + !Prox MATTRESS STUFFER ! !18.6 !! ! + + + + + + !Mid MATTRESS STUFFER ! !21.7 !! ! + + + + + + !Dist MATTRESS STUFFER ! !30.9 !! ! + + + + + + !Prox ROSELYN ! !21.2 !! ! + + + + + + !Mid ROSELYN ! !13.3 !! ! + + + + + + !Dist ROSELYN ! !15 !! ! + + + + + + !Prox Peroneal ! !8.33 !! ! + + + + + + !Mid Peroneal ! !14 !! ! + + + + + + !Dist Peroneal ! !21 !! ! + + + + + + Narrative Performed At LAB - Lower Extremity Arterial Duplex [facility] ECHO HEARTLAB [facility] Demographics Patient NameSNATALIA RICHARD Date of Study 03/02/2018 NORAH 57 Visit [id number] Male of 1960 Number Referring Ravi FontanaRoom Number [id number] Physician Meter Supervisor Luis Carlos NajerapretingJ. Zbigniew Ramirez, Physician , VI Procedure Type of Study: Extremities Arteries: Lower Extremities Arterial Duplex, ARTERIAL DOPPLER LEG, RIGHT. Indications for Study:Right Leg Pain and Swelling. Patient Status:STAT. Study Location:Portable. Technical Quality:Technically Difficult. - Results were reported to: Dr. Rodrigues @ 21:35. Risk Factors History of Disease +---------+----+ + !Diagnosis!Date!Comments ! +---------+----+ + !Other!!Claudication, HLD, HTN, PVD, Stroke, Right Femoral to! ! !!Popliteal bypass graft, Right Femoral to Left Femoral! ! !!bypass graft ! +---------+----+ + Procedure Note Interface, External Ris In - 03/03/2018 6:39 AM CDT [facility] LAB - Lower Extremity Arterial Duplex Demographics Patient Name NATALIA JORGE Date of Study 03/02/2018 NORAH Age 57 Visit Number [id number] Gender Male Date of 1960 Number Referring Ravi Fontana Room Number [id number] Physician Meter Supervisor Luis Carlos Villalta Interpreting Jon Ramirez, Physician , RPVI Procedure Type of Study: Extremities Arteries: Lower Extremities Arterial Duplex, ARTERIAL DOPPLER LEG, RIGHT. Indications for Study:Right Leg Pain and Swelling. Patient Status:STAT. Study Location:Portable. Technical Quality:Technically Difficult. - Results were reported to: Dr. Rodrigues @ 21:35. Risk Factors History of Disease +---------+----+ + !Diagnosis!Date!Comments ! +---------+----+ + !Other ! !Claudication, HLD, HTN, PVD, Stroke, Right Femoral to ! ! ! !Popliteal bypass graft, Right Femoral to Left Femoral ! ! ! !bypass graft ! +---------+----+ + Impressions Right Impression 1. The right femoral artery to left femoral artery bypass graft is patent. 2. The right femoral artery to popliteal artery bypass is occluded with reconstitution of flow distally (popliteal artery). 3. The common femoral and profunda femoral arteries are patent with monophasic Doppler waveforms. 4. The femoral artery is occluded. 5. The posterior tibial, peroneal and anterior tibial arteries are patent with low velocity, monophasic Doppler waveforms. 6. The PT pressure is 70 mmHg with an YOSVANY of 0.61 and the DP pressure is 81 mmHg with an YOSVANY of 0.71, within moderate obstruction range. 7. The digits have no obtainable flow by PPG waveforms. 8. The great toe pressure and TBI could not be obtained due to no recordable flow. Left Impression 1. Not ordered (For comparison) 2. The PT pressure is 80 mmHg with an YOSVANY of 0.75 and the DP pressure is 80 mmHg with an YOSVANY of 0.70, within moderate obstruction range. 3. The great toe pressure is 33 mmHg with an abnormal TBI of 0.29. 4. The digits have decreased flow by PPG waveforms. Conclusions Summary Arterial pressures and Doppler analysis were performed on the right lower extremity. The arterial exam was technically difficult due to shadowing and edema. The right femoral artery to left femoral artery bypass graft was patent. The right femoral artery to popliteal artery bypass was occluded with reconstitution of flow distally (popliteal artery). The common femoral and profunda femoral arteries were patent with monophasic Doppler waveforms. The femoral artery was occluded. The posterior tibial, peroneal and anterior tibial arteries were patent with low velocity, monophasic Doppler waveforms. The PT and DP YOSVANY's were within moderate obstruction range. The digits had no obtainable flow by PPG waveforms. The great toe pressure and TBI could not be obtained due to no recordable flow. For comparison on the left, the PT and DP YOSVANY's were within the moderate obstruction range, the TBI was abnormal and the digits had decreased flow by PPG waveforms. Signature Velocities are measured in cm/s ; Diameters are measured in cm LE Duplex Measurements Right Left + + + -------+ + + + +------- + + !Location ! !PSV !EDV !Waveform ! !PSV !EDV !Waveform ! + + + -------+ + + + +------- + + !Mid Common Femoral ! !72.7 ! ! ! !67.4 ! ! ! + + + -------+ + + + +------- + + !Prox PFA ! !138 ! ! ! + + + -------+ + + !Prox SFA ! !100 ! ! ! + + + -------+ + + !Prox Popliteal ! !28.3 ! ! ! + + + -------+ + + !Dist Popliteal ! !52.3 ! ! ! + + + -------+ + + !Prox MATTRESS STUFFER ! !18.6 ! ! ! + + + -------+ + + !Mid MATTRESS STUFFER ! !21.7 ! ! ! + + + -------+ + + !Dist MATTRESS STUFFER ! !30.9 ! ! ! + + + -------+ + + !Prox ROSELYN ! !21.2 ! ! ! + + + -------+ + + !Mid ROSELYN ! !13.3 ! ! ! + + + -------+ + + !Dist ROSELYN ! !15 ! ! ! + + + -------+ + + !Prox Peroneal ! !8.33 ! ! ! + + + -------+ + + !Mid Peroneal ! !14 ! ! ! + + + -------+ + + !Dist Peroneal ! !21 ! ! ! + + + -------+ + + Performing Organization Address City/State/Zipcode Phone Number [facility] Venous doppler leg, right (03/02/2018 8:00 PM CDT) Ejection Fraction [facility] [employer] [facility] Specimen Impressions Performed At Right Impression [facility] [employer] [facility] 1. There is no deep venous obstruction in the common femoral, profunda femoral, femoral, popliteal, posterior tibial or peroneal veins. 2. There is no superficial venous obstruction in the great saphenous vein. Conclusions Summary Venous duplex imaging and compression of the right lower extremity was performed. The veins were adequately visualized. The right venous system was patent and compressible with no evidence of thrombus. The venous Doppler waveforms were phasic with respiration . Signature Velocities are measured in cm/s ; Diameters are measured in cm Narrative Performed At PV LAB - Lower Extremities DVT Study [facility] ECHO [facility]ARTLife[facility]ON [facility] Dem[facility] Patient NATALIA Trejo Date of Study 03/02/2018 NORAH 57 Visit [id number] Male of 1960 Number Referring Ravi FontanaRoom Number [id number] Physician Meter Supervisor Justin Gallagher RVT InterpretingJon Ramirez Physician , CITLALI Procedure Type of Study: Veins: Lower Extremities DVT Study, VENOUS DOPPLER LEG, RIGHT. Indications for Study:Leg pain . Patient Status:STAT. Study Location:Portable. Technical Quality:Adequate visualization. Risk Factors History of Disease +---------+----+ + !Diagnosis!Date!Comments ! +---------+----+ + !Other!!Claudication, HLD, HTN, PVD, Stroke, Right Femoral to! ! !!Popliteal bypass graft, Right Femoral to Left Femoral! ! !!bypass graft ! +---------+----+ + Procedure Note Interface, External Ris In - 03/03/2018 6:40 AM CDT [facility] LAB - Lower Extremities DVT Study Demographics Patient Name NATALIA JORGE Date of Study 03/02/2018 NORAH Age 57 Visit Number [id number] Gender Male Date of 1960 Number Referring Ravi Fontana Room Number [id number] Physician Meter Supervisor Justin Gallahger RVT Interpreting Jon Ramirez, Physician , CITLALI Procedure Type of Study: Veins: Lower Extremities DVT Study, VENOUS DOPPLER LEG, RIGHT. Indications for Study:Leg pain . Patient Status:STAT. Study Location:Portable. Technical Quality:Adequate visualization. Risk Factors History of Disease +---------+----+ + !Diagnosis!Date!Comments ! +---------+----+ + !Other ! !Claudication, HLD, HTN, PVD, Stroke, Right Femoral to ! ! ! !Popliteal bypass graft, Right Femoral to Left Femoral ! ! ! !bypass graft ! +---------+----+ + Impressions Right Impression 1. There is no deep venous obstruction in the common femoral, profunda femoral, femoral, popliteal, posterior tibial or peroneal veins. 2. There is no superficial venous obstruction in the great saphenous vein. Conclusions Summary Venous duplex imaging and compression of the right lower extremity was performed. The veins were adequately visualized. The right venous system was patent and compressible with no evidence of thrombus. The venous Doppler waveforms were phasic with respiration . Signature Velocities are measured in cm/s ; Diameters are measured in cm Performing Organization Address City/[facility] Phone Number [facility] ECHO HEARTLAB MK[facility]ON CPACS C-Reactive Protein (03/02/2018 6:07 PM CDT) CRP 0.04 0.00 - 0.50 mg/dL [facility] Specimen Blood Performing Organization Address City/[facility] Phone Number [facility] [address] [place] [address] CENTER after 11/23/2017 Advance Directives For more information, please contact:[address] [phone] Code Status Date Activated Date Inactivated Comments Full Code 03/03/2018 2:37 AM 03/07/2018 2:32 PM This code status was determined by: Patient Full Code 09/25/2017 5:46 PM 09/30/2017 3:19 PM This code status was determined by: Patient Full Code 09/25/2017 7:33 AM 09/25/2017 5:46 PM This code status was determined by: Patient
--- OUTSIDE RECORDS SUMMARY | 2018-11-24 10:12 | XMS REPORT ---
:1960 [facility] Address [facility] [address] [place] [address] Care Team Providers Name Role Phone CARLI WAN Unavailable Unavailable GRETA URBAN Unavailable Unavailable Problems This patient has no known problems. Allergies, Adverse Reactions, Alerts This patient has no known allergies or adverse reactions. Medications This patient has no known medications. Results Test Description Test Time Test Comments Text Results Atomic Results Result Comments BLOOD CULTURE 2018-03-11 18:00:00 Test Item Value Reference Range Comments CULTURE (BEAKER) (test ooph=2679) No growth in 5 days BLOOD [id number] 18:00:00 Test Item Value Reference Range Comments CULTURE (BEAKER) (test zruq=9211) No growth in 5 days BLOOD [id number] 00:00:00 Test Item Value Reference Range Comments CULTURE (BEAKER) (test tddp=5549) No growth in 5 days BASIC METABOLIC [id number] 05:57:00 Test Item Value Reference Range Comments SODIUM (BEAKER) (test 139 meq/L 136-145 sesp=678) POTASSIUM (BEAKER) (test 3.5 meq/L 3.5-5.1 sdrd=003) CHLORIDE (BEAKER) (test 105 meq/L 98-107 wwwc=045) CO2 (BEAKER) (test 25 meq/L 22-29 bodd=091) BLOOD UREA NITROGEN 8 mg/dL 7-21 (BEAKER) (test yqwd=677) CREATININE (BEAKER) (test 0.78 mg/dL 0.57-1.25 npzb=158) GLUCOSE RANDOM (BEAKER) 119 mg/dL 70-105 (test jkfo=924) CALCIUM (BEAKER) (test 8.9 mg/dL 8.4-10.2 wlfh=576) EGFR (BEAKER) (test 124 mL/min/1.73 sq m ESTIMATED GFR IS NOT utjz=7414) ACCURATE CREATININE CLEARANCE IN PREDICTING GLOMERULAR FILTRATION RATE. ESTIMATED GFR IS NOT APPLICABLE FOR DIALYSIS PATIENTS. CBC W/PLT COUNT & AUTO [id number] 05:11:00 Test Item Value Reference Range Comments WHITE BLOOD CELL COUNT (BEAKER) (test ozco=107) 10.2 K/ L 3.5-10.5 RED BLOOD CELL COUNT (BEAKER) (test ceqy=965) 3.90 M/ L 4.63-6.08 HEMOGLOBIN (BEAKER) (test iouh=726) 12.0 GM/DL 13.7-17.5 HEMATOCRIT (BEAKER) (test liox=021) 35.3 % 40.1-51.0 MEAN CORPUSCULAR VOLUME (BEAKER) (test kctc=452) 90.5 fL 79.0-92.2 MEAN CORPUSCULAR HEMOGLOBIN (BEAKER) (test 30.8 pg 25.7-32.2 vdst=825) MEAN CORPUSCULAR HEMOGLOBIN CONC (BEAKER) (test 34.0 GM/DL 32.3-36.5 bomh=847) RED CELL DISTRIBUTION WIDTH (BEAKER) (test 13.3 % 11.6-14.4 xghl=131) PLATELET COUNT (BEAKER) (test nsjy=488) 233 K/CU MM 150-450 MEAN PLATELET VOLUME (BEAKER) (test xgwj=297) 10.9 fL 9.4-12.4 NUCLEATED RED BLOOD CELLS (BEAKER) (test 0 /100 WBC 0-0 kjcp=770) NEUTROPHILS RELATIVE PERCENT (BEAKER) (test 58 % jwjc=646) LYMPHOCYTES RELATIVE PERCENT (BEAKER) (test 25 % lvpy=388) MONOCYTES RELATIVE PERCENT (BEAKER) (test 11 % chov=992) EOSINOPHILS RELATIVE PERCENT (BEAKER) (test 5 % fdqm=748) BASOPHILS RELATIVE PERCENT (BEAKER) (test 1 % pohy=915) NEUTROPHILS ABSOLUTE COUNT (BEAKER) (test 5.92 K/ L 1.78-5.38 ptpn=502) LYMPHOCYTES ABSOLUTE COUNT (BEAKER) (test 2.51 K/ L 1.32-3.57 figw=199) MONOCYTES ABSOLUTE COUNT (BEAKER) (test 1.12 K/ L 0.30-0.82 kwyk=579) EOSINOPHILS ABSOLUTE COUNT (BEAKER) (test 0.50 K/ L 0.04-0.54 cbiy=719) BASOPHILS ABSOLUTE COUNT (BEAKER) (test 0.06 K/ L 0.01-0.08 wgry=514) IMMATURE GRANULOCYTES-RELATIVE PERCENT (BEAKER) 0 % 0-1 (test jakc=9222) [id number] 07:07:00 Test Item Value Reference Range Comments PARTIAL THROMBOPLASTIN TIME (BEAKER) (test 107.0 seconds 22.5-36.0 qhbx=527) [id number] 06:15:00 Test Item Value Reference Range Comments PARTIAL THROMBOPLASTIN TIME (BEAKER) (test 117.6 seconds 22.5-36.0 ibvf=808) [id number] 05:49:00 Test Item Value Reference Range Comments PARTIAL THROMBOPLASTIN TIME (BEAKER) (test 96.1 seconds 22.5-36.0 qlrn=068) BASIC METABOLIC [id number] 05:21:00 Test Item Value Reference Range Comments SODIUM (BEAKER) (test 137 meq/L 136-145 lzod=513) POTASSIUM (BEAKER) (test 3.8 meq/L 3.5-5.1 kvjp=275) CHLORIDE (BEAKER) (test 104 meq/L 98-107 zeam=078) CO2 (BEAKER) (test 24 meq/L 22-29 jqpf=321) BLOOD UREA NITROGEN 9 mg/dL 7-21 (BEAKER) (test wlkf=324) CREATININE (BEAKER) (test 0.80 mg/dL 0.57-1.25 dftu=326) GLUCOSE RANDOM (BEAKER) 93 mg/dL 70-105 (test ncfk=792) CALCIUM (BEAKER) (test 8.7 mg/dL 8.4-10.2 sisw=400) EGFR (BEAKER) (test 121 mL/min/1.73 sq m ESTIMATED GFR IS NOT ssrd=3112) ACCURATE CREATININE CLEARANCE IN PREDICTING GLOMERULAR FILTRATION RATE. ESTIMATED GFR IS NOT APPLICABLE FOR DIALYSIS PATIENTS. CBC W/PLT COUNT & AUTO [id number] 04:58:00 Test Item Value Reference Range Comments WHITE BLOOD CELL COUNT (BEAKER) (test agni=114) 11.2 K/ L 3.5-10.5 RED BLOOD CELL COUNT (BEAKER) (test kheb=365) 3.92 M/ L 4.63-6.08 HEMOGLOBIN (BEAKER) (test vevo=083) 12.0 GM/DL 13.7-17.5 HEMATOCRIT (BEAKER) (test myqn=928) 35.0 % 40.1-51.0 MEAN CORPUSCULAR VOLUME (BEAKER) (test lnvi=056) 89.3 fL 79.0-92.2 MEAN CORPUSCULAR HEMOGLOBIN (BEAKER) (test 30.6 pg 25.7-32.2 fbwo=536) MEAN CORPUSCULAR HEMOGLOBIN CONC (BEAKER) (test 34.3 GM/DL 32.3-36.5 tfcw=325) RED CELL DISTRIBUTION WIDTH (BEAKER) (test 13.3 % 11.6-14.4 uqfz=911) PLATELET COUNT (BEAKER) (test snhy=692) 222 K/CU MM 150-450 MEAN PLATELET VOLUME (BEAKER) (test pwef=202) 10.6 fL 9.4-12.4 NUCLEATED RED BLOOD CELLS (BEAKER) (test 0 /100 WBC 0-0 kuxb=821) NEUTROPHILS RELATIVE PERCENT (BEAKER) (test 53 % nwtd=648) LYMPHOCYTES RELATIVE PERCENT (BEAKER) (test 32 % ehdk=913) MONOCYTES RELATIVE PERCENT (BEAKER) (test 11 % owim=445) EOSINOPHILS RELATIVE PERCENT (BEAKER) (test 4 % fukn=250) BASOPHILS RELATIVE PERCENT (BEAKER) (test 0 % dwwx=592) NEUTROPHILS ABSOLUTE COUNT (BEAKER) (test 6.00 K/ L 1.78-5.38 bvri=580) LYMPHOCYTES ABSOLUTE COUNT (BEAKER) (test 3.57 K/ L 1.32-3.57 esge=072) MONOCYTES ABSOLUTE COUNT (BEAKER) (test 1.20 K/ L 0.30-0.82 chlf=361) EOSINOPHILS ABSOLUTE COUNT (BEAKER) (test 0.40 K/ L 0.04-0.54 bsyk=341) BASOPHILS ABSOLUTE COUNT (BEAKER) (test 0.03 K/ L 0.01-0.08 ltap=610) IMMATURE GRANULOCYTES-RELATIVE PERCENT (BEAKER) 0 % 0-1 (test abxq=7739) [id number] 21:35:00 Test Item Value Reference Range Comments PARTIAL THROMBOPLASTIN TIME (BEAKER) (test 89.5 seconds 22.5-36.0 obom=197) [id number] 15:44:00 Test Item Value Reference Range Comments PARTIAL THROMBOPLASTIN TIME (BEAKER) (test 85.8 seconds 22.5-36.0 ddgp=183) [id number] 09:50:00 Test Item Value Reference Range Comments PARTIAL THROMBOPLASTIN TIME (BEAKER) (test 53.6 seconds 22.5-36.0 tejc=101) BASIC METABOLIC [id number] 06:24:00 Test Item Value Reference Range Comments SODIUM (BEAKER) (test 137 meq/L 136-145 xxsb=248) POTASSIUM (BEAKER) (test 3.8 meq/L 3.5-5.1 oepv=175) CHLORIDE (BEAKER) (test 105 meq/L 98-107 ywxl=759) CO2 (BEAKER) (test 24 meq/L 22-29 aztk=043) BLOOD UREA NITROGEN 11 mg/dL 7-21 (BEAKER) (test hzcc=600) CREATININE (BEAKER) (test 0.76 mg/dL 0.57-1.25 ycmh=672) GLUCOSE RANDOM (BEAKER) 94 mg/dL 70-105 (test qezw=060) CALCIUM (BEAKER) (test 8.5 mg/dL 8.4-10.2 efue=944) EGFR (BEAKER) (test 128 mL/min/1.73 sq m ESTIMATED GFR IS NOT hcxt=0650) ACCURATE CREATININE CLEARANCE IN PREDICTING GLOMERULAR FILTRATION RATE. ESTIMATED GFR IS NOT APPLICABLE FOR DIALYSIS PATIENTS. CBC W/PLT COUNT & AUTO [id number] 06:22:00 Test Item Value Reference Range Comments WHITE BLOOD CELL COUNT (BEAKER) (test udxn=714) 12.3 K/ L 3.5-10.5 RED BLOOD CELL COUNT (BEAKER) (test johj=155) 4.01 M/ L 4.63-6.08 HEMOGLOBIN (BEAKER) (test famz=655) 12.1 GM/DL 13.7-17.5 HEMATOCRIT (BEAKER) (test wvyy=309) 36.4 % 40.1-51.0 MEAN CORPUSCULAR VOLUME (BEAKER) (test xphs=301) 90.8 fL 79.0-92.2 MEAN CORPUSCULAR HEMOGLOBIN (BEAKER) (test 30.2 pg 25.7-32.2 nwjv=861) MEAN CORPUSCULAR HEMOGLOBIN CONC (BEAKER) (test 33.2 GM/DL 32.3-36.5 eeht=516) RED CELL DISTRIBUTION WIDTH (BEAKER) (test 13.4 % 11.6-14.4 xswy=519) PLATELET COUNT (BEAKER) (test oppp=506) 233 K/CU MM 150-450 MEAN PLATELET VOLUME (BEAKER) (test hlex=991) 10.7 fL 9.4-12.4 NUCLEATED RED BLOOD CELLS (BEAKER) (test 0 /100 WBC 0-0 vhqk=966) NEUTROPHILS RELATIVE PERCENT (BEAKER) (test 70 % ekrn=289) LYMPHOCYTES RELATIVE PERCENT (BEAKER) (test 21 % zizw=579) MONOCYTES RELATIVE PERCENT (BEAKER) (test 7 % ubsl=361) EOSINOPHILS RELATIVE PERCENT (BEAKER) (test 2 % yfgi=234) BASOPHILS RELATIVE PERCENT (BEAKER) (test 0 % acwk=054) NEUTROPHILS ABSOLUTE COUNT (BEAKER) (test 8.59 K/ L 1.78-5.38 zqcw=565) LYMPHOCYTES ABSOLUTE COUNT (BEAKER) (test 2.52 K/ L 1.32-3.57 qwmz=342) MONOCYTES ABSOLUTE COUNT (BEAKER) (test 0.86 K/ L 0.30-0.82 ryed=190) EOSINOPHILS ABSOLUTE COUNT (BEAKER) (test 0.23 K/ L 0.04-0.54 nlee=501) BASOPHILS ABSOLUTE COUNT (BEAKER) (test 0.03 K/ L 0.01-0.08 uzwz=404) IMMATURE GRANULOCYTES-RELATIVE PERCENT (BEAKER) 0 % 0-1 (test mmxo=4999) [id number] 17:27:00 Test Item Value Reference Range Comments ACTIVATED CLOTTING TIME 269 sec TESTED AT [facility] [address] (BEAKER) (test eyzp=305) [place] [address] CT, CTA AAA, W/ [place].EXT.[id number] 15:50:00Please page me when done. Need stat cta for surgery. Thanks.Addendum BeginsREPORT STATUS:A Addendum: I reviewed the nonvascular features of this examination and concur with Dr. Restrepo's report. Signed: Juan Esparza MDReport Verified Date/ Time: 03/04/2018 15:50:09 Reading Location: [place] [address] Angio Body Reading RoomAddendum EndsFINAL REPORT CT angiography of the abdominal aorta and with runoff, 03 March 2018INDICATION: This is a 57 year old male [...] physician as well as the 3-D specialist foroptimal visualization of the abdominal aorta, pelvic arteries, and its proximal branches. Please refer to the contrast sheet scanned in the RIS system for the amount and route of contrast given. This exam was performed according to our departmental dose- optimisation programme, which includes automatedexposure control, adjustment of the mA and/or kV according to patient size and/or use of iterative reconstruction technique. Dose modulation, iterative reconstruction, and/or weight based adjustment ofthe mA/kV was utilized to reduce the radiation dose to as low as reasonably achievable. FINDINGS: VASCULAR: The abdominal aorta is normal in course, calibre and contour. Mild noncalcific atherosclerosis and scattered calcification is seen in the course of the abdominal aorta. No ectasia or aneurysmaldilation is seen. There is no evidence of acute aortic pathology, specifically, there is no dissection, intramural haematoma, or contained rupture. Quantitative dimensions of the abdominal aorta are as follows: 1.8 cm at the mesenteric segment; 1.9 cm at the renal segment,; and 1.7 cm at the aorticbifurcation. The coeliac axis, SMA, KITTY are patent. [...] in fact a femoral to femoral bypass graftis identified that is widely patent. The right [...] left, the left SFA is essentially occluded. Acuitycannot be commented upon. Correlate with clinical examination. The left profunda system is patent but is a small caliber vessel. Enhancement of the popliteal artery is identified, at image 436, in theproximal left portal artery, above the left knee [...] dynamic data set. In the right, the t[place]ora right SFA is occluded. The right profunda [...] though the very distal segment in the dorsalispedis artery is not well appreciated even in [...] assessed by CT angiography as enteric contrast isnot given. No obvious bowel dilation is identified. [...] a moderate lesion. In any case, the leftexternal iliac artery is occluded. A degree of enhancement is identified in the left common femoral artery. While calcific atherosclerosis is seen in the right external iliac artery, no critical lesion is identified. The right common femoral artery is unremarkable. A patent femoral to femoral bypass graft is identified. 3. The tuscarora left SFA is occluded. The right SFA is occluded. A probable right femoral to popliteal bypass graft is identified that is also occluded. Acuity cannot be commented upon. Correlate with clinical history. 4. Status of the popliteal arteries as described above. 5. Despite the presence of significant peripheral vascular disease above both knee joints, good bilaterallower extremity runoff is identified, as described above. 6. Other findings as described above. 7. An addendum will be dictated regarding the non-vascular findings by the Artificial Snow Making Machine Operator Radiologist. Signed: Shawn Restrepo MDReport Verified Date/Time: 03/04/2018 07:12:51 Reading Location: [place] [id number] MRI [id number] 10:51:00 Test Item Value Reference Range Comments PARTIAL THROMBOPLASTIN TIME (BEAKER) (test 66.0 seconds 22.5-36.0 beuz=853) BASIC METABOLIC [id number] 02:33:00 Test Item Value Reference Range Comments SODIUM (BEAKER) (test 137 meq/L 136-145 ytyg=373) POTASSIUM (BEAKER) (test 3.8 meq/L 3.5-5.1 ubjv=987) CHLORIDE (BEAKER) (test 106 meq/L 98-107 vdnc=803) CO2 (BEAKER) (test 21 meq/L 22-29 taeo=956) BLOOD UREA NITROGEN 7 mg/dL 7-21 (BEAKER) (test ycxg=506) CREATININE (BEAKER) (test 0.77 mg/dL 0.57-1.25 mpmi=029) GLUCOSE RANDOM (BEAKER) 96 mg/dL 70-105 (test rrzw=164) CALCIUM (BEAKER) (test 9.1 mg/dL 8.4-10.2 fedy=521) EGFR (BEAKER) (test 126 mL/min/1.73 sq m ESTIMATED GFR IS NOT lkwv=1217) ACCURATE CREATININE CLEARANCE IN PREDICTING GLOMERULAR FILTRATION RATE. ESTIMATED GFR IS NOT APPLICABLE FOR DIALYSIS PATIENTS. [id number] 02:28:00 Test Item Value Reference Range Comments PARTIAL THROMBOPLASTIN TIME (BEAKER) (test 44.6 seconds 22.5-36.0 jzui=114) CBC W/PLT COUNT & AUTO [id number] 02:20:00 Test Item Value Reference Range Comments WHITE BLOOD CELL COUNT (BEAKER) (test zbrt=413) 10.5 K/ L 3.5-10.5 RED BLOOD CELL COUNT (BEAKER) (test wcfl=473) 4.55 M/ L 4.63-6.08 HEMOGLOBIN (BEAKER) (test hciu=541) 14.0 GM/DL 13.7-17.5 HEMATOCRIT (BEAKER) (test jxoa=255) 40.5 % 40.1-51.0 MEAN CORPUSCULAR VOLUME (BEAKER) (test uezj=192) 89.0 fL 79.0-92.2 MEAN CORPUSCULAR HEMOGLOBIN (BEAKER) (test 30.8 pg 25.7-32.2 pkep=141) MEAN CORPUSCULAR HEMOGLOBIN CONC (BEAKER) (test 34.6 GM/DL 32.3-36.5 uqlj=825) RED CELL DISTRIBUTION WIDTH (BEAKER) (test 13.3 % 11.6-14.4 anel=988) PLATELET COUNT (BEAKER) (test uyqt=694) 262 K/CU MM 150-450 MEAN PLATELET VOLUME (BEAKER) (test tfve=306) 10.1 fL 9.4-12.4 NUCLEATED RED BLOOD CELLS (BEAKER) (test 0 /100 WBC 0-0 pqvd=722) NEUTROPHILS RELATIVE PERCENT (BEAKER) (test 57 % mova=165) LYMPHOCYTES RELATIVE PERCENT (BEAKER) (test 32 % lbwz=113) MONOCYTES RELATIVE PERCENT (BEAKER) (test 7 % dfkh=890) EOSINOPHILS RELATIVE PERCENT (BEAKER) (test 3 % bnfa=129) BASOPHILS RELATIVE PERCENT (BEAKER) (test 1 % edhn=498) NEUTROPHILS ABSOLUTE COUNT (BEAKER) (test 6.00 K/ L 1.78-5.38 ghnw=464) LYMPHOCYTES ABSOLUTE COUNT (BEAKER) (test 3.38 K/ L 1.32-3.57 urye=392) MONOCYTES ABSOLUTE COUNT (BEAKER) (test 0.74 K/ L 0.30-0.82 fqbh=811) EOSINOPHILS ABSOLUTE COUNT (BEAKER) (test 0.34 K/ L 0.04-0.54 lsnl=733) BASOPHILS ABSOLUTE COUNT (BEAKER) (test 0.05 K/ L 0.01-0.08 uwtq=946) IMMATURE GRANULOCYTES-RELATIVE PERCENT (BEAKER) 0 % 0-1 (test ahqc=0195) [id number] 23:51:00 Test Item Value Reference Range Comments PARTIAL THROMBOPLASTIN TIME (BEAKER) (test > seconds 22.5-36.0 spjv=869) [id number] 15:27:00 Test Item Value Reference Range Comments PARTIAL THROMBOPLASTIN TIME (BEAKER) (test 56.5 seconds 22.5-36.0 vuro=843) RAD, FOOT, MIN 3 VIEWS, [id number] 08:43:00Reason for exam:->Foot ulcer - r/o osteoFINAL REPORT TECHNIQUE: Frontal, lateral, and oblique radiographs of the right foot dated 03/03/2018 HISTORY: Foot ulcer COMPARISON: None. FINDINGS:No fracture or dislocation. Bones are osteopenic. There are degenerative changes of the first metatarsophalangeal joint. Lisfranc joint is well aligned on these nonstress views. No bone erosion or soft tissue nodule seen. No radiodense foreign body or subcutaneous emphysema. IMPRESSION: No fracture or dislocation. Bones are osteopenic. There is concern for osteomyelitis, recommend a nuclear medicine or MRI. Signed: Shantanu Ryaneport Verified Date/Time: 03/03/2018 08:43:54 Reading Location: [facility] Radiology Reading Room [id number] 08:24:00 Test Item Value Reference Range Comments PARTIAL THROMBOPLASTIN TIME (BEAKER) (test 67.3 seconds 22.5-36.0 isum=839) [id number] 06:15:00 Test Item Value Reference Range Comments PARTIAL THROMBOPLASTIN TIME (BEAKER) (test 180.5 seconds 22.5-36.0 ppcx=813) Prior to initiating heparinBASIC METABOLIC [id number] 04:42:00 Test Item Value Reference Range Comments SODIUM (BEAKER) (test 139 meq/L 136-145 jjwq=290) POTASSIUM (BEAKER) (test 3.6 meq/L 3.5-5.1 dsqo=707) CHLORIDE (BEAKER) (test 108 meq/L 98-107 iimo=861) CO2 (BEAKER) (test 25 meq/L 22-29 jiio=500) BLOOD UREA NITROGEN 8 mg/dL 7-21 (BEAKER) (test motl=473) CREATININE (BEAKER) (test 0.77 mg/dL 0.57-1.25 hlux=091) GLUCOSE RANDOM (BEAKER) 95 mg/dL 70-105 (test sxef=774) CALCIUM (BEAKER) (test 8.7 mg/dL 8.4-10.2 nfmq=135) EGFR (BEAKER) (test 126 mL/min/1.73 sq m ESTIMATED GFR IS NOT fbuv=1630) ACCURATE CREATININE CLEARANCE IN PREDICTING GLOMERULAR FILTRATION RATE. ESTIMATED GFR IS NOT APPLICABLE FOR DIALYSIS PATIENTS. CBC W/PLT COUNT & AUTO [id number] 04:31:00 Test Item Value Reference Range Comments WHITE BLOOD CELL COUNT (BEAKER) (test zbfi=229) 9.4 K/ L 3.5-10.5 RED BLOOD CELL COUNT (BEAKER) (test afxl=238) 4.41 M/ L 4.63-6.08 HEMOGLOBIN (BEAKER) (test rbon=110) 13.4 GM/DL 13.7-17.5 HEMATOCRIT (BEAKER) (test gkxf=799) 39.5 % 40.1-51.0 MEAN CORPUSCULAR VOLUME (BEAKER) (test qful=134) 89.6 fL 79.0-92.2 MEAN CORPUSCULAR HEMOGLOBIN (BEAKER) (test 30.4 pg 25.7-32.2 achr=348) MEAN CORPUSCULAR HEMOGLOBIN CONC (BEAKER) (test 33.9 GM/DL 32.3-36.5 dfcg=980) RED CELL DISTRIBUTION WIDTH (BEAKER) (test 13.4 % 11.6-14.4 iktg=964) PLATELET COUNT (BEAKER) (test fyav=368) 241 K/CU MM 150-450 MEAN PLATELET VOLUME (BEAKER) (test yztk=052) 10.2 fL 9.4-12.4 NUCLEATED RED BLOOD CELLS (BEAKER) (test 0 /100 WBC 0-0 vusg=985) NEUTROPHILS RELATIVE PERCENT (BEAKER) (test 51 % hqpp=413) LYMPHOCYTES RELATIVE PERCENT (BEAKER) (test 38 % naro=468) MONOCYTES RELATIVE PERCENT (BEAKER) (test 7 % gxyv=456) EOSINOPHILS RELATIVE PERCENT (BEAKER) (test 4 % whnr=278) BASOPHILS RELATIVE PERCENT (BEAKER) (test 0 % ueph=307) NEUTROPHILS ABSOLUTE COUNT (BEAKER) (test 4.77 K/ L 1.78-5.38 tsks=666) LYMPHOCYTES ABSOLUTE COUNT (BEAKER) (test 3.51 K/ L 1.32-3.57 trsd=635) MONOCYTES ABSOLUTE COUNT (BEAKER) (test 0.67 K/ L 0.30-0.82 mrmf=009) EOSINOPHILS ABSOLUTE COUNT (BEAKER) (test 0.37 K/ L 0.04-0.54 quxo=160) BASOPHILS ABSOLUTE COUNT (BEAKER) (test 0.03 K/ L 0.01-0.08 qyww=426) IMMATURE GRANULOCYTES-RELATIVE PERCENT (BEAKER) 0 % 0-1 (test pusl=6311) [id number] 22:31:00 Test Item Value Reference Range Comments PARTIAL THROMBOPLASTIN TIME (BEAKER) (test 31.2 seconds 22.5-36.0 cpcw=356) Prior to initiating heparinBASIC METABOLIC [id number] 18:30:00 Test Item Value Reference Range Comments SODIUM (BEAKER) (test 139 meq/L 136-145 nxpf=582) POTASSIUM (BEAKER) (test 3.6 meq/L 3.5-5.1 zffe=268) CHLORIDE (BEAKER) (test 106 meq/L 98-107 rupc=694) CO2 (BEAKER) (test 21 meq/L 22-29 ooat=884) BLOOD UREA NITROGEN 8 mg/dL 7-21 (BEAKER) (test ymcu=256) CREATININE (BEAKER) (test 0.83 mg/dL 0.57-1.25 zeth=151) GLUCOSE RANDOM (BEAKER) 110 mg/dL 70-105 (test zrqj=842) CALCIUM (BEAKER) (test 9.7 mg/dL 8.4-10.2 cazc=744) EGFR (BEAKER) (test 116 mL/min/1.73 sq m ESTIMATED GFR IS NOT pcwb=8285) ACCURATE CREATININE CLEARANCE IN PREDICTING GLOMERULAR FILTRATION RATE. ESTIMATED GFR IS NOT APPLICABLE FOR DIALYSIS PATIENTS. C-REACTIVE [id number] 18:30:00 Test Item Value Reference Range Comments C-REACTIVE PROTEIN (BEAKER) (test zxcz=409) 0.04 mg/dL 0.00-0.50 CBC W/PLT COUNT & AUTO [id number] 18:13:00 Test Item Value Reference Range Comments WHITE BLOOD CELL COUNT (BEAKER) (test uqcw=197) 10.2 K/ L 3.5-10.5 RED BLOOD CELL COUNT (BEAKER) (test bfar=790) 4.65 M/ L 4.63-6.08 HEMOGLOBIN (BEAKER) (test byqr=527) 14.3 GM/DL 13.7-17.5 HEMATOCRIT (BEAKER) (test bngf=766) 40.7 % 40.1-51.0 MEAN CORPUSCULAR VOLUME (BEAKER) (test mmny=549) 87.5 fL 79.0-92.2 MEAN CORPUSCULAR HEMOGLOBIN (BEAKER) (test 30.8 pg 25.7-32.2 qdvn=880) MEAN CORPUSCULAR HEMOGLOBIN CONC (BEAKER) (test 35.1 GM/DL 32.3-36.5 utrn=850) RED CELL DISTRIBUTION WIDTH (BEAKER) (test 13.3 % 11.6-14.4 lyke=681) PLATELET COUNT (BEAKER) (test cpwc=048) 238 K/CU MM 150-450 MEAN PLATELET VOLUME (BEAKER) (test ygjh=805) 10.1 fL 9.4-12.4 NUCLEATED RED BLOOD CELLS (BEAKER) (test 0 /100 WBC 0-0 gnys=790) NEUTROPHILS RELATIVE PERCENT (BEAKER) (test 64 % erua=800) LYMPHOCYTES RELATIVE PERCENT (BEAKER) (test 26 % uvpi=561) MONOCYTES RELATIVE PERCENT (BEAKER) (test 7 % yhcq=216) EOSINOPHILS RELATIVE PERCENT (BEAKER) (test 2 % vndm=283) BASOPHILS RELATIVE PERCENT (BEAKER) (test 0 % hmtt=379) NEUTROPHILS ABSOLUTE COUNT (BEAKER) (test 6.54 K/ L 1.78-5.38 pjuq=431) LYMPHOCYTES ABSOLUTE COUNT (BEAKER) (test 2.64 K/ L 1.32-3.57 elsz=267) MONOCYTES ABSOLUTE COUNT (BEAKER) (test 0.71 K/ L 0.30-0.82 qoyt=862) EOSINOPHILS ABSOLUTE COUNT (BEAKER) (test 0.21 K/ L 0.04-0.54 jura=747) BASOPHILS ABSOLUTE COUNT (BEAKER) (test 0.04 K/ L 0.01-0.08 qjjv=635) IMMATURE GRANULOCYTES-RELATIVE PERCENT (BEAKER) 0 % 0-1 (test jdfk=9004) TISSUE [id number] 14:18:00Surgical Pathology Report Case: [id number] Authorizing Provider: Greta Urban MD Collected: 09/25/2017 1609 Ordering Location: [facility] Received: 09/26/2017 0819 PERIOPERATIVE SERVICES Pathologist: Dejan Martin MD Specimens: A) - Plaque, LEFT FEMORAL PLAQUE B) -Plaque, RIGHT FEMORAL PLAQUE A. ARTERY, LEFT FEMORAL, ENDARTERECTOMY:CALCIFIC ATHEROSCLEROTIC PLAQUEB. ARTERY, RIGHT FEMORAL, ENDARTERECTOMY:CALCIFIC ATHEROSCLEROTIC PLAQUE WITH ATTACHED FIBRIN THROMBUS Signing Pathologist Direct Phone Line: [phone] signed by Dejan Martin MD on 09/30/2017 at 2:18 [id number]; [id number]. Left femoral plaque. B. Right femoral plaque Specimen A: Received in saline labeled "plaque", description "left femoral plaque" is a 2.5 x 2.5 x 0.5 cm aggregate of sinha-white to yellow-ferreira, rubbery fibrous tissue. Sectioning reveals focal calcification. Exterminator Termite sections are submitted in cassette A1 for decalcification.Specimen B: Received in saline labeled "plaque", description "right femoral plaque" are three irregular, sinha-white to yellow-ferreira, rubbery portions of fibrous tissue measuring 1.5 x 1.5 x 0.2 cm in aggregate. Sectioning reveals focal calcification. The specimen is entirely submitted in cassette B1 for decalcification. [id number] 00:38:00 Test Item Value Reference Range Comments MAGNESIUM (BEAKER) (test ipav=320) 2.1 mg/dL 1.6-2.6 BASIC METABOLIC [id number] 00:38:00 Test Item Value Reference Range Comments SODIUM (BEAKER) (test 136 meq/L 136-145 ivxa=882) POTASSIUM (BEAKER) (test 3.8 meq/L 3.5-5.1 ysjq=388) CHLORIDE (BEAKER) (test 104 meq/L 98-107 hcrr=864) CO2 (BEAKER) (test 26 meq/L 22-29 zhmr=068) BLOOD UREA NITROGEN 11 mg/dL 7-21 (BEAKER) (test cdpj=710) CREATININE (BEAKER) (test 0.92 mg/dL 0.57-1.25 nukw=036) GLUCOSE RANDOM (BEAKER) 99 mg/dL 70-105 (test ymbc=092) CALCIUM (BEAKER) (test 8.5 mg/dL 8.4-10.2 pwvh=778) EGFR (BEAKER) (test 103 mL/min/1.73 sq m ESTIMATED GFR IS NOT wgxs=4318) ACCURATE CREATININE CLEARANCE IN PREDICTING GLOMERULAR FILTRATION RATE. ESTIMATED GFR IS NOT APPLICABLE FOR DIALYSIS PATIENTS. CBC W/PLT COUNT & AUTO [id number] 13:39:00 Test Item Value Reference Range Comments WHITE BLOOD CELL COUNT 14.6 K/ L 3.5-10.5 (BEAKER) (test ftxr=896) RED BLOOD CELL COUNT (BEAKER) 3.59 M/ L 4.63-6.08 (test paiy=357) HEMOGLOBIN (BEAKER) (test 11.0 GM/DL 13.7-17.5 znpr=991) HEMATOCRIT (BEAKER) (test 32.8 % 40.1-51.0 zpzu=926) MEAN CORPUSCULAR VOLUME 91.4 fL 79.0-92.2 (BEAKER) (test jfos=563) MEAN CORPUSCULAR HEMOGLOBIN 30.6 pg 25.7-32.2 (BEAKER) (test oyqw=773) MEAN CORPUSCULAR HEMOGLOBIN 33.5 GM/DL 32.3-36.5 CONC (BEAKER) (test ebsa=687) RED CELL DISTRIBUTION WIDTH 12.9 % 11.6-14.4 (BEAKER) (test grxi=326) PLATELET COUNT (BEAKER) (test 143 K/CU MM 150-450 jaez=335) MEAN PLATELET VOLUME (BEAKER) 10.8 fL 9.4-12.4 (test jtyi=318) NUCLEATED RED BLOOD CELLS 0 /100 WBC 0-0 (BEAKER) (test darq=241) NEUTROPHILS RELATIVE PERCENT 66 % This is an appended report. (BEAKER) (test tuyy=582) These results have been appended to a previously final verified report. LYMPHOCYTES RELATIVE PERCENT 20 % This is an appended report. (BEAKER) (test alpu=160) These results have been appended to a previously final verified report. MONOCYTES RELATIVE PERCENT 11 % This is an appended report. (BEAKER) (test hurh=349) These results have been appended to a previously final verified report. EOSINOPHILS RELATIVE PERCENT 3 % This is an appended report. (BEAKER) (test nrva=037) These results have been appended to a previously final verified report. BASOPHILS RELATIVE PERCENT 0 % This is an appended report. (BEAKER) (test eyjr=021) These results have been appended to a previously final verified report. NEUTROPHILS ABSOLUTE COUNT 9.59 K/ L 1.78-5.38 This is an appended report. (BEAKER) (test evzi=933) These results have been appended to a previously final verified report. LYMPHOCYTES ABSOLUTE COUNT 2.96 K/ L 1.32-3.57 This is an appended report. (BEAKER) (test yybs=648) These results have been appended to a previously final verified report. MONOCYTES ABSOLUTE COUNT 1.59 K/ L 0.30-0.82 This is an appended report. (BEAKER) (test mlkq=904) These results have been appended to a previously final verified report. EOSINOPHILS ABSOLUTE COUNT 0.37 K/ L 0.04-0.54 This is an appended report. (BEAKER) (test loql=584) These results have been appended to a previously final verified report. BASOPHILS ABSOLUTE COUNT 0.04 K/ L 0.01-0.08 This is an appended report. (BEAKER) (test yvor=152) These results have been appended to a previously final verified report. IMMATURE GRANULOCYTES-RELATIVE 1 % 0-1 This is an appended report. PERCENT (BEAKER) (test These results have been jrfu=0881) appended to a previously final verified report. POCT-GLUCOSE [id number] 09:12:00 Test Item Value Reference Range Comments POC-GLUCOSE METER (BEAKER) 81 mg/dL 70-110 TESTED AT [facility] [address] [facility] (test dxoa=8624) [facility] [address] BASIC METABOLIC [id number] 05:02:00 Test Item Value Reference Range Comments SODIUM (BEAKER) (test 136 meq/L 136-145 rsoy=290) POTASSIUM (BEAKER) (test 3.8 meq/L 3.5-5.1 hycv=457) CHLORIDE (BEAKER) (test 105 meq/L 98-107 jsbk=011) CO2 (BEAKER) (test 25 meq/L 22-29 dkmp=064) BLOOD UREA NITROGEN 9 mg/dL 7-21 (BEAKER) (test odzp=156) CREATININE (BEAKER) (test 0.82 mg/dL 0.57-1.25 ndth=551) GLUCOSE RANDOM (BEAKER) 89 mg/dL 70-105 (test wztw=394) CALCIUM (BEAKER) (test 8.3 mg/dL 8.4-10.2 ergf=152) EGFR (BEAKER) (test 117 mL/min/1.73 sq m ESTIMATED GFR IS NOT yeyt=6554) ACCURATE CREATININE CLEARANCE IN PREDICTING GLOMERULAR FILTRATION RATE. ESTIMATED GFR IS NOT APPLICABLE FOR DIALYSIS PATIENTS. POCT-GLUCOSE [id number] 21:22:00 Test Item Value Reference Range Comments POC-GLUCOSE METER (BEAKER) 121 mg/dL 70-110 TESTED AT [facility] [address] (test wmko=6079) [facility] [address] [id number] 04:30:00 Test Item Value Reference Range Comments PHOSPHORUS (BEAKER) (test bowg=786) 2.7 mg/dL 2.3-4.7 [id number] 04:30:00 Test Item Value Reference Range Comments MAGNESIUM (BEAKER) (test uriw=454) 2.5 mg/dL 1.6-2.6 BASIC METABOLIC [id number] 04:30:00 Test Item Value Reference Range Comments SODIUM (BEAKER) (test 134 meq/L 136-145 xgec=971) POTASSIUM (BEAKER) (test 3.8 meq/L 3.5-5.1 ybeb=521) CHLORIDE (BEAKER) (test 104 meq/L 98-107 rhgk=687) CO2 (BEAKER) (test 22 meq/L 22-29 ekis=663) BLOOD UREA NITROGEN 13 mg/dL 7-21 (BEAKER) (test gunm=056) CREATININE (BEAKER) (test 0.96 mg/dL 0.57-1.25 fhex=951) GLUCOSE RANDOM (BEAKER) 115 mg/dL 70-105 (test sxfv=305) CALCIUM (BEAKER) (test 8.2 mg/dL 8.4-10.2 qtif=217) EGFR (BEAKER) (test 98 mL/min/1.73 sq m ESTIMATED GFR IS NOT oblu=6132) ACCURATE CREATININE CLEARANCE IN PREDICTING GLOMERULAR FILTRATION RATE. ESTIMATED GFR IS NOT APPLICABLE FOR DIALYSIS PATIENTS. LACTIC ACID, ARTERIAL, WHOLE [id number] 04:15:00 Test Item Value Reference Range Comments LACTATE BLOOD ARTERIAL (2) (BEAKER) (test 1.0 mmol/L 0.5-2.2 ewco=6937) Effective 09/27/2015: Units/Reference Range ChangeNew: 0.5-2.2 mmol/L Previous: 5 -20 mg/dLCBC W/PLT COUNT & AUTO [id number] 04:12:00 Test Item Value Reference Range Comments WHITE BLOOD CELL COUNT (BEAKER) (test wabe=214) 16.5 K/ L 3.5-10.5 RED BLOOD CELL COUNT (BEAKER) (test nztp=021) 4.08 M/ L 4.63-6.08 HEMOGLOBIN (BEAKER) (test fdfl=713) 12.5 GM/DL 13.7-17.5 HEMATOCRIT (BEAKER) (test tfrx=282) 36.9 % 40.1-51.0 MEAN CORPUSCULAR VOLUME (BEAKER) (test myof=901) 90.4 fL 79.0-92.2 MEAN CORPUSCULAR HEMOGLOBIN (BEAKER) (test 30.6 pg 25.7-32.2 xjpi=071) MEAN CORPUSCULAR HEMOGLOBIN CONC (BEAKER) (test 33.9 GM/DL 32.3-36.5 jqne=628) RED CELL DISTRIBUTION WIDTH (BEAKER) (test 12.8 % 11.6-14.4 rqhf=514) PLATELET COUNT (BEAKER) (test alfj=400) 183 K/CU MM 150-450 MEAN PLATELET VOLUME (BEAKER) (test tgrl=719) 10.2 fL 9.4-12.4 NUCLEATED RED BLOOD CELLS (BEAKER) (test 0 /100 WBC 0-0 fupz=999) NEUTROPHILS RELATIVE PERCENT (BEAKER) (test 80 % nezb=975) LYMPHOCYTES RELATIVE PERCENT (BEAKER) (test 11 % schz=379) MONOCYTES RELATIVE PERCENT (BEAKER) (test 8 % fgvy=896) EOSINOPHILS RELATIVE PERCENT (BEAKER) (test 1 % qxme=514) BASOPHILS RELATIVE PERCENT (BEAKER) (test 0 % zolf=722) NEUTROPHILS ABSOLUTE COUNT (BEAKER) (test 13.15 K/ L 1.78-5.38 gilm=754) LYMPHOCYTES ABSOLUTE COUNT (BEAKER) (test 1.85 K/ L 1.32-3.57 csbe=636) MONOCYTES ABSOLUTE COUNT (BEAKER) (test 1.36 K/ L 0.30-0.82 cyou=446) EOSINOPHILS ABSOLUTE COUNT (BEAKER) (test 0.10 K/ L 0.04-0.54 gmuu=312) BASOPHILS ABSOLUTE COUNT (BEAKER) (test 0.03 K/ L 0.01-0.08 uixe=672) IMMATURE GRANULOCYTES-RELATIVE PERCENT (BEAKER) 0 % 0-1 (test lkud=4913) CALCIUM, [id number] 03:51:00 Test Item Value Reference Range Comments CALCIUM IONIZED (BEAKER) (test ssty=439) 1.08 mmol/L 1.12-1.27 PH, BLOOD (BEAKER) (test elzw=6355) 7.41 POCT-GLUCOSE [id number] 22:24:00 Test Item Value Reference Range Comments POC-GLUCOSE METER (BEAKER) 159 mg/dL 70-110 TESTED AT [facility] [address] [facility] (test mjkz=2071) [facility] [address] RAD, CHEST, 1 VIEW, NON [id number] 19:01:00Reason for exam:->central line placement Should this [...] MDReport Verified Date/Time: 2017 19:01:26 Reading Location: [address] Consult Reading Room [id number] 18:09:00 Test Item Value Reference Range Comments PHOSPHORUS (BEAKER) (test ekic=539) 3.1 mg/dL 2.3-4.7 [id number] 18:09:00 Test Item Value Reference Range Comments MAGNESIUM (BEAKER) (test ofua=825) 1.7 mg/dL 1.6-2.6 BASIC METABOLIC [id number] 18:09:00 Test Item Value Reference Range Comments SODIUM (BEAKER) (test 137 meq/L 136-145 vpko=080) POTASSIUM (BEAKER) (test 3.9 meq/L 3.5-5.1 huon=289) CHLORIDE (BEAKER) (test 108 meq/L 98-107 grrl=655) CO2 (BEAKER) (test 23 meq/L 22-29 dpni=670) BLOOD UREA NITROGEN 14 mg/dL 7-21 (BEAKER) (test qrrl=745) CREATININE (BEAKER) (test 0.95 mg/dL 0.57-1.25 ssjj=169) GLUCOSE RANDOM (BEAKER) 231 mg/dL 70-105 (test tslf=926) CALCIUM (BEAKER) (test 8.1 mg/dL 8.4-10.2 zixi=013) EGFR (BEAKER) (test 99 mL/min/1.73 sq m ESTIMATED GFR IS NOT qzqe=4170) ACCURATE CREATININE CLEARANCE IN PREDICTING GLOMERULAR FILTRATION RATE. ESTIMATED GFR IS NOT APPLICABLE FOR DIALYSIS PATIENTS. PROTHROMBIN [id number] 18:01:00 Test Item Value Reference Range Comments PROTIME (BEAKER) (test karh=272) 15.8 seconds 11.7-14.7 INR (BEAKER) (test gwxo=869) 1.3 <=5.9 RECOMMENDED COUMADIN/WARFARIN INR THERAPY RANGESSTANDARD DOSE: 2.0 - 3.0 Includes: PROPHYLAXIS forvenous thrombosis, systemic embolization; TREATMENT for venous thrombosis and/or pulmonary embolus.HIGH RISK: Target INR is 2.5-3.5 for patients with mechanical heart valves.[id number] 18:01:00 Test Item Value Reference Range Comments FIBRINOGEN LEVEL (BEAKER) (test ikdn=597) 354 mg/dl 225-434 [id number] 18:01:00 Test Item Value Reference Range Comments PARTIAL THROMBOPLASTIN TIME (BEAKER) (test 34.5 seconds 22.5-36.0 whay=072) CBC W/PLT COUNT & AUTO [id number] 17:52:00 Test Item Value Reference Range Comments WHITE BLOOD CELL COUNT (BEAKER) (test ljkc=918) 21.1 K/ L 3.5-10.5 RED BLOOD CELL COUNT (BEAKER) (test qqae=461) 4.68 M/ L 4.63-6.08 HEMOGLOBIN (BEAKER) (test eyik=386) 14.3 GM/DL 13.7-17.5 HEMATOCRIT (BEAKER) (test ffkq=377) 42.8 % 40.1-51.0 MEAN CORPUSCULAR VOLUME (BEAKER) (test kuek=814) 91.5 fL 79.0-92.2 MEAN CORPUSCULAR HEMOGLOBIN (BEAKER) (test 30.6 pg 25.7-32.2 ogcl=212) MEAN CORPUSCULAR HEMOGLOBIN CONC (BEAKER) (test 33.4 GM/DL 32.3-36.5 bjej=420) RED CELL DISTRIBUTION WIDTH (BEAKER) (test 13.0 % 11.6-14.4 uyea=307) PLATELET COUNT (BEAKER) (test pjrp=313) 216 K/CU MM 150-450 MEAN PLATELET VOLUME (BEAKER) (test arxt=572) 10.3 fL 9.4-12.4 NUCLEATED RED BLOOD CELLS (BEAKER) (test 0 /100 WBC 0-0 uqpj=385) NEUTROPHILS RELATIVE PERCENT (BEAKER) (test 65 % kuir=658) LYMPHOCYTES RELATIVE PERCENT (BEAKER) (test 24 % huuf=791) MONOCYTES RELATIVE PERCENT (BEAKER) (test 7 % drui=864) EOSINOPHILS RELATIVE PERCENT (BEAKER) (test 3 % nlky=031) BASOPHILS RELATIVE PERCENT (BEAKER) (test 0 % sxva=948) NEUTROPHILS ABSOLUTE COUNT (BEAKER) (test 13.75 K/ L 1.78-5.38 wqlw=354) LYMPHOCYTES ABSOLUTE COUNT (BEAKER) (test 4.96 K/ L 1.32-3.57 yofy=019) MONOCYTES ABSOLUTE COUNT (BEAKER) (test 1.37 K/ L 0.30-0.82 tucp=740) EOSINOPHILS ABSOLUTE COUNT (BEAKER) (test 0.69 K/ L 0.04-0.54 xhvo=833) BASOPHILS ABSOLUTE COUNT (BEAKER) (test 0.05 K/ L 0.01-0.08 qyhw=589) IMMATURE GRANULOCYTES-RELATIVE PERCENT (BEAKER) 1 % 0-1 (test ndvz=7277) HEMOGLOBIN [id number] 14:43:00 Test Item Value Reference Range Comments HEMOGLOBIN A1C (BEAKER) (test tjgj=704) 5.6 % 4.3-6.1 BASIC METABOLIC [id number] 12:35:00 Test Item Value Reference Range Comments SODIUM (BEAKER) (test 141 meq/L 136-145 cgnb=203) POTASSIUM (BEAKER) (test 4.1 meq/L 3.5-5.1 qiyy=595) CHLORIDE (BEAKER) (test 105 meq/L 98-107 sfhh=527) CO2 (BEAKER) (test 28 meq/L 22-29 gnfk=394) BLOOD UREA NITROGEN 9 mg/dL 7-21 (BEAKER) (test oakj=206) CREATININE (BEAKER) (test 0.82 mg/dL 0.57-1.25 rckz=744) GLUCOSE RANDOM (BEAKER) 89 mg/dL 70-105 (test wfwv=896) CALCIUM (BEAKER) (test 9.5 mg/dL 8.4-10.2 ldbb=194) EGFR (BEAKER) (test 117 mL/min/1.73 sq m ESTIMATED GFR IS NOT tfqq=2442) ACCURATE CREATININE CLEARANCE IN PREDICTING GLOMERULAR FILTRATION RATE. ESTIMATED GFR IS NOT APPLICABLE FOR DIALYSIS PATIENTS. PROTHROMBIN [id number] 12:32:00 Test Item Value Reference Range Comments PROTIME (BEAKER) (test gaip=335) 13.7 seconds 11.7-14.7 INR (BEAKER) (test ehmb=624) 1.1 <=5.9 RECOMMENDED COUMADIN/WARFARIN INR THERAPY RANGESSTANDARD DOSE: 2.0 - 3.0 Includes: PROPHYLAXIS forvenous thrombosis, systemic embolization; TREATMENT for venous thrombosis and/or pulmonary embolus.HIGH RISK: Target INR is 2.5-3.5 for patients with mechanical heart valves.RAD, CHEST, 2 [id number] 12:21: 00Reason for Exam:->Pre-OpFINAL REPORT Chest two views INDICATION: Preoperative exam. Aortic iliac disease, femoral popliteal artery atherosclerosis COMPARISON: None available IMPRESSION: There is no focal consolidation, vascular congestion, pleural effusion, or pneumothorax. The cardiomediastinal silhouette is unremarkable. There are mild degenerative spine and shoulder changes. Signed: Yaw [place]ep[place] Verified Date/Time: 09/16/2017 12:21:59 Reading Location: [facility] Radiology Reading Room CBC W/ PLT COUNT & AUTO [id number] 12:19:00 Test Item Value Reference Range Comments WHITE BLOOD CELL COUNT (BEAKER) (test nvqf=212) 8.6 K/ L 3.5-10.5 RED BLOOD CELL COUNT (BEAKER) (test idka=695) 5.05 M/ L 4.63-6.08 HEMOGLOBIN (BEAKER) (test uuxp=709) 15.4 GM/DL 13.7-17.5 HEMATOCRIT (BEAKER) (test vjgv=613) 47.1 % 40.1-51.0 MEAN CORPUSCULAR VOLUME (BEAKER) (test cbyi=101) 93.3 fL 79.0-92.2 MEAN CORPUSCULAR HEMOGLOBIN (BEAKER) (test 30.5 pg 25.7-32.2 dbap=571) MEAN CORPUSCULAR HEMOGLOBIN CONC (BEAKER) (test 32.7 GM/DL 32.3-36.5 vnzs=776) RED CELL DISTRIBUTION WIDTH (BEAKER) (test 13.0 % 11.6-14.4 fyye=915) PLATELET COUNT (BEAKER) (test kshe=547) 272 K/CU MM 150-450 MEAN PLATELET VOLUME (BEAKER) (test baii=131) 10.6 fL 9.4-12.4 NUCLEATED RED BLOOD CELLS (BEAKER) (test 0 /100 WBC 0-0 slio=219) NEUTROPHILS RELATIVE PERCENT (BEAKER) (test 55 % cocu=497) LYMPHOCYTES RELATIVE PERCENT (BEAKER) (test 33 % enza=632) MONOCYTES RELATIVE PERCENT (BEAKER) (test 6 % tvhq=438) EOSINOPHILS RELATIVE PERCENT (BEAKER) (test 5 % cskw=975) BASOPHILS RELATIVE PERCENT (BEAKER) (test 0 % crfx=810) NEUTROPHILS ABSOLUTE COUNT (BEAKER) (test 4.70 K/ L 1.78-5.38 acth=044) LYMPHOCYTES ABSOLUTE COUNT (BEAKER) (test 2.83 K/ L 1.32-3.57 eohi=300) MONOCYTES ABSOLUTE COUNT (BEAKER) (test 0.51 K/ L 0.30-0.82 jctp=577) EOSINOPHILS ABSOLUTE COUNT (BEAKER) (test 0.46 K/ L 0.04-0.54 atcw=751) BASOPHILS ABSOLUTE COUNT (BEAKER) (test 0.03 K/ L 0.01-0.08 umfv=423) IMMATURE GRANULOCYTES-RELATIVE PERCENT (BEAKER) 0 % 0-1 (test kfmt=7624)
[2018-11-24 10:49] LABS: Absolute Lymphocytes (CBC) 2.1 K/uL (0.7-4.9); Basophils % 0.3 % (0-1.3); Eosinophils % 1.2 % (0-4.4); Hematocrit 38.9 % (39.6-49.0); Lymphocytes % 19.4 % (15.3-44.8); MPV 7.8 fL (7.6-11.3); Monocytes % 7.7 % (3.3-12.3); RBC Red Blood Cell Count 4.42 M/uL (4.33-5.43)
[2018-11-24] MEDS ORDERED: MAGNE/ALUM HYDROXD 30 ML UCUP ONE (10:53)
[2018-11-24] MEDS ORDERED: ONDANSETRON 4 MG/2 ML VIAL ONE (10:54)
[2018-11-24] MEDS ORDERED: LIDOCAINE VISCOUS 2% SOLN 15 ML UDC ONE (10:54)
[2018-11-24] MEDS ORDERED: MORPHINE 4 MG/ML SYR ONE (10:54)
[2018-11-24] MEDS ORDERED: NA CHLORIDE 0.9% 1,000 ML ONE (10:55)
[2018-11-24] MEDS ORDERED: FAMOTIDINE 20 MG/2 ML VIAL IV ONE (10:55)
[2018-11-24 11:12] LABS: ALT/SGPT 47 U/L (12-78); AST/SGOT 260 U/L (15-37); Albumin 3.5 g/dL (3.4-5.0); BUN Blood Urea Nitrogen 11 mg/dL (7-18); Bicarbonate 31 mmol/L (21-32); Bilirubin Direct < 0.1 mg/dL (0-0.2); Bilirubin Total 0.3 mg/dL (0.2-1.0); Glucose Level 112 mg/dL (74-106); Lipase 295 U/L (73-393); Potassium 3.9 mmol/L (3.5-5.1); Protein, Total 8.1 g/dL (6.4-8.2); Sodium Level 134 mmol/L (136-145); Troponin (Emerg Dept Use Only) < 0.02 ng/mL (0.0-0.045)
[2018-11-24 11:15] LABS: Alkaline Phosphatase ND U/L (45-117)
--- NOTE | 2018-11-24 11:31 | RAD REPORT ---
EXAM DESCRIPTION: US - Abdomen Exam Limited - 11/24/2018 11:19 am CLINICAL HISTORY: ABD PAIN COMPARISON: Abdomen Exam Complete dated 11/05/2016; Abdomen Angio dated 08/07/2017; Pelvis Angio dated 08/07/2017 FINDINGS: The gallbladder demonstrates no gallstones. No pericholecystic fluid or gallbladder wall t hickening. The common bile duct is normal measuring 3 mm. The liver demonstrates no findings of intrahepatic biliary dilatation. IMPRESSION: Unremarkable examination.
--- NOTE | 2018-11-24 12:55 | ER ---
Nurse's Notes [facility] Name: Noé Garcai Age: 58 yrs Sex: Male : 1960 Arrival Date: 11/24/2018 Time: 09:54 Bed 8 Private MD: Diagnosis: Pain localized to upper abdomen;Liver disease, unspecified Presentation: 11/24 10:04 Presenting complaint: Patient states: Shorntess of breath and palpitations that can be sg felt in the middle of my stomach, reports mild pain to the epigastric area, denies Fever/N/V, reports loose stool. Transition of care: patient was not received from another setting of care. Onset of symptoms was November 24, 2018. Risk Assessment: Do you want to hurt yourself or someone else? Patient reports no desire to harm self or others. Initial Sepsis Screen: Does the patient meet any 2 criteria? No. Patient's initial sepsis screen is negative. Does the patient have a suspected source of infection? No. Patient's initial sepsis screen is negative. Care prior to arrival: None. 10:04 Method Of Arrival: Ambulatory sg 10:04 Acuity: BINH 3 sg Triage Assessment: 10:05 General: Appears in no apparent distress. comfortable, Behavior is cooperative, bp appropriate for age, anxious. Pain: Denies pain. EENT: No deficits noted. Neuro: Level of Consciousness is awake, alert, obeys commands, Oriented to person, place, time, situation, Appropriate for age. Cardiovascular: No deficits noted. Respiratory: Reports shortness of breath at rest Onset: The symptoms/episode began/occurred at an unknown time. the patient has mild shortness of breath. GI: No signs and/or symptoms were reported involving the gastrointestinal system. : No signs and/or symptoms were reported regarding the genitourinary system. Derm: No deficits noted. Musculoskeletal: No deficits noted. Historical: - Allergies: 10:09 No Known Allergies; sg - PMHx: 10:09 Hypertension; sg - Immunization history:: Adult Immunizations unknown. - Social history:: Smoking status: Patient/guardian denies using tobacco, Patient/guardian denies using alcohol, street drugs, The patient lives with family. - Ebola Screening: : Patient negative for fever greater than or equal to 101.5 degrees Fahrenheit, and additional compatible Ebola Virus Disease symptoms Patient denies exposure to infectious person Patient denies travel to an Ebola-affected area in the 21 days before illness onset No symptoms or risks identified at this time. - Family history:: not pertinent. Screenin:10 Abuse screen: Denies threats or abuse. Denies injuries from another. Nutritional bp screening: No deficits noted. Tuberculosis screening: No symptoms or risk factors identified. Fall Risk None identified. Assessment: 10:10 General: SEE TRIAGE NOTE. bp 10:59 Reassessment: PT TO U/S. bp 11:33 Reassessment: ALL CURRENT ORDERS COMPLETED, RESULTS PENDING. bp 12:31 Reassessment: ALL CURRENT STUDIES COMPLETED, DISPO PENDING. bp Vital Signs: 10:09 BP 155 / 70; Pulse 77; Resp 16; Temp 97.6; Pulse Ox 100% on R/A; Weight 61.23 kg (R); sg Height 5 ft. 9 in. (175.26 cm) (R); Pain 6/10; 10:59 BP 104 / 75; Pulse 73; Resp 14; Pulse Ox 100% ; bp 11:33 BP 109 / 75; Pulse 70; Resp 16; Pulse Ox 100% ; bp 12:31 BP 107 / 88; Pulse 83; Resp 14; Pulse Ox 100% ; bp 10:09 Body Mass Index 19.94 (61.23 kg, 175.26 cm) sg ED Course: 09:54 Patient arrived in ED. mr 09:57 Justin Dc, RN is Primary Nurse. bp 10:02 Eric Gagnon MD is Attending Physician. ma2 10:05 Triage completed. sg 10:05 Arm band placed on. sg 10:10 Patient has correct armband on for positive identification. Bed in low position. Call bp light in reach. Side rails up X2. Adult w/ patient. 10:13 EKG done, by or scrub tech. reviewed by Eric Gagnon MD. sm3 10:28 Initial lab(s) drawn, by me, sent to lab. Inserted saline lock: 20 gauge in right ms antecubital area, using aseptic technique. Blood collected. 10:53 Patient moved back from ultrasound. esperanza 11:19 US Abdomen Limited In Process Unspecified. EDMS 12:54 Garett Royal MD is Referral Physician. ma2 13:12 No provider procedures requiring assistance completed. IV discontinued, intact, ss bleeding controlled, No redness/swelling at site. Pressure dressing applied. Administered Medications: 10:30 Drug: morphine 4 mg Route: IVP; Site: right antecubital; bp 11:34 Follow up: Response: Pain is decreased bp 10:30 Drug: Zofran 4 mg Route: IVP; Site: right antecubital; bp 11:34 Follow up: Response: Pain is decreased bp 10:30 Drug: NS 0.9% 1000 ml Route: IV; Rate: 1 bolus; Site: right antecubital; bp 13:13 Follow up: IV Status: Completed infusion; IV Intake: 1000ml ss 10:30 Drug: Pepcid 20 mg Route: IVP; Site: right antecubital; bp 11:35 Follow up: Response: No adverse reaction bp 10:30 Drug: GI Cocktail without - (Maalox Suspension 30 ml, Lidocaine Liquid 2 % 15 bp ml) Route: PO; 11:34 Follow up: Response: Pain is decreased bp Intake: 13:13 IV: 1000ml; Total: 1000ml. ss Outcome: 12:54 Discharge ordered by MD. odell 13:12 Discharged to home via wheelchair, with family. ss 13:12 Condition: good 13:12 Discharge instructions given to patient, family, Instructed on discharge instructions, follow up and referral plans. medication usage, Demonstrated understanding of instructions, follow-up care, medications, Prescriptions given X 2. 13:13 Patient left the ED. ss Signatures: Dispatcher [employer] EDMS Larry Holt RN RN Susanna Rajput mr AbelGita ms, Shelby, RN RN ss Dupre, Jacques jd Peltier, Brian, RN RN bp Alzahri, Mohammad, MD MD ma2 Montes, Shakira 3
--- NOTE | 2018-11-24 12:55 | EDPHYS ---
Physician Documentation [facility] Name: Noé Garcia Age: 58 yrs Sex: Male : 1960 Arrival Date: 11/24/2018 Time: 09:54 Bed 8 Private MD: ED Physician Eric Gagnon HPI: 11/24 12:52 Duration: The symptoms are continuous, but are markedly better than the original ma2 presentation, are intermittent, with no pattern. Associated signs and symptoms: Pertinent negatives: productive cough, dizziness, hemoptysis, nausea. Severity of symptoms: At their worst the symptoms were mild moderate in the emergency department the symptoms are unchanged. The patient has experienced similar episodes in the past. here with ruq abd pain that is intermittent . Historical: - Allergies: : No Known Allergies; sg - PMHx: 10: Hypertension; sg - Immunization history:: Adult Immunizations unknown. - Social history:: Smoking status: Patient/guardian denies using tobacco, Patient/guardian denies using alcohol, street drugs, The patient lives with family. - Ebola Screening: : Patient negative for fever greater than or equal to 101.5 degrees Fahrenheit, and additional compatible Ebola Virus Disease symptoms Patient denies exposure to infectious person Patient denies travel to an Ebola-affected area in the 21 days before illness onset No symptoms or risks identified at this time. - Family history:: not pertinent. ROS: 12:52 Constitutional: Negative for fever, chills, and weight loss. ma2 12:52 All other systems are negative. Exam: 12:52 Constitutional: This is a well developed, well nourished patient who is awake, alert, ma2 and in no acute distress. Neck: Trachea midline, no thyromegaly or masses palpated, and no cervical lymphadenopathy. Supple, full range of motion without nuchal rigidity, or vertebral point tenderness. No Meningismus. Chest/axilla: Normal chest wall appearance and motion. Nontender with no deformity. No lesions are appreciated. Cardiovascular: Regular rate and rhythm with a normal S1 and S2. No gallops, murmurs, or rubs. Normal PMI, no JVD. No pulse deficits. Respiratory: Lungs have equal breath sounds bilaterally, clear to auscultation and percussion. No rales, rhonchi or wheezes noted. No increased work of breathing, no retractions or nasal flaring. Back: No spinal tenderness. No costovertebral tenderness. Full range of motion. MS/ Extremity: Pulses equal, no cyanosis. Neurovascular intact. Full, normal range of motion. Neuro: Awake and alert, GCS 15, oriented to person, place, time, and situation. Cranial nerves II-XII grossly intact. Motor strength 5/5 in all extremities. Sensory grossly intact. Cerebellar exam normal. Normal gait. 12:52 Abdomen/GI: Palpation: mild abdominal tenderness, in the right upper quadrant, mass, is not appreciated, rebound tenderness, is not appreciated, Liver: no appreciated palpable abnormalities, tenderness, that is moderate. Vital Signs: 10:09 BP 155 / 70; Pulse 77; Resp 16; Temp 97.6; Pulse Ox 100% on R/A; Weight 61.23 kg (R); sg Height 5 ft. 9 in. (175.26 cm) (R); Pain 6/10; 10:59 BP 104 / 75; Pulse 73; Resp 14; Pulse Ox 100% ; bp 11:33 BP 109 / 75; Pulse 70; Resp 16; Pulse Ox 100% ; bp 12:31 BP 107 / 88; Pulse 83; Resp 14; Pulse Ox 100% ; bp 10:09 Body Mass Index 19.94 (61.23 kg, 175.26 cm) sg MDM: 10:03 Patient medically screened. ma2 12:52 Differential diagnosis: cholecystitis, vs gastritis vs hepatitis. Data reviewed: vital ma2 signs, nurses notes, old medical records. Counseling: I had a detailed discussion with the patient and/or guardian regarding: the historical points, exam findings, and any diagnostic results supporting the discharge/admit diagnosis, the presence of at least one elevated blood pressure reading (>120/80) during this emergency department visit, the need for outpatient follow up. Response to treatment: the patient's symptoms have markedly improved after treatment. 11/24 10:19 Order name: Basic Metabolic Panel; Complete Time: 11:17 ma2 11/24 10:19 Order name: CBC with Diff; Complete Time: 11:17 ma2 11/24 10:19 Order name: Creatinine for Radiology; Complete Time: 11:17 ma2 11/24 10:19 Order name: Hepatic Function; Complete Time: 11:17 ma2 11/24 10:19 Order name: Lipase; Complete Time: 11:[address] [facility] 11/24 10:19 Order name: Troponin (emerg Dept Use Only); Complete Time: 11:[address] [facility] 11/24 10:53 Order name: US Abdomen Limited; Complete Time: 12:22 jr8 11/24 10:58 Order name: EKG Electrocardiogram; Complete Time: 10:59 [facility] 11/24 10:19 Order name: IV Saline Lock; Complete Time: 10:[address] [facility] 11/24 10:19 Order name: Labs collected and sent; Complete Time: 10:[address] [facility] Administered Medications: 10:30 Drug: morphine 4 mg Route: IVP; Site: right antecubital; bp 11:34 Follow up: Response: Pain is decreased bp 10:30 Drug: Zofran 4 mg Route: IVP; Site: right antecubital; bp 11:34 Follow up: Response: Pain is decreased bp 10:30 Drug: NS 0.9% 1000 ml Route: IV; Rate: 1 bolus; Site: right antecubital; bp 13:13 Follow up: IV Status: Completed infusion; IV Intake: 1000ml ss 10:30 Drug: Pepcid 20 mg Route: IVP; Site: right antecubital; bp 11:35 Follow up: Response: No adverse reaction bp 10:30 Drug: GI Cocktail without - (Maalox Suspension 30 ml, Lidocaine Liquid 2 % 15 bp ml) Route: PO; 11:34 Follow up: Response: Pain is decreased bp Disposition: 11/24/18 12:54 Discharged to Home. Impression: Pain localized to upper abdomen, Liver disease, unspecified. - Condition is Stable. - Discharge Instructions: Abdominal Pain, Adult. - Prescriptions for Tramadol 50 mg Oral Tablet - take 1 tablet by ORAL route every 8 hours as needed; 12 tablet. Pepcid 20 mg Oral Tablet - take 1 tablet by ORAL route once daily for 10 days; 10 tablet. - Medication Reconciliation Form, Thank You Letter, Antibiotic Education, Prescription Opioid Use form. - Follow up: Garett Royal MD; When: Tomorrow; Reason: If symptoms return, Continuance of care. Signatures: Dispatcher [employer] [facility] Larry Holt RN RN sg Smirch, Shelby, RN RN ss Peltier, Brian, RN RN bp Eric Gagnon MD MD ma2 Corrections: (The following items were deleted from the chart) 10:56 10:21 OB Limited+[id number].RAD.BRZ ordered. EDMS EDMS 13:13 12:54 11/24/2018 12:54 Discharged to Home. Impression: Pain localized to upper abdomen; ss Liver disease, unspecified. Condition is Stable. Forms are Medication Reconciliation Form, Thank You Letter, Antibiotic Education, Prescription Opioid Use. Follow up: Garett Royal; When: Tomorrow; Reason: If symptoms return, Continuance of care. ma2
--- NOTE | 2018-11-25 06:58 | EKG ---
Test Date: 2018-11-24 Test Time: 10:08:57 Supervisor Wall Mirror Department: JIM MEASUREMENT RESULTS: Intervals: Rate: 75 [place]: 160 QRSD: 74 QT: 348 QTc: 388 [place]: P: 80 [place]: 160 QRS: 77 T: 76 INTERPRETIVE STATEMENTS: Normal sinus rhythm Right atrial enlargement Borderline ECG No previous ECG available for comparison Electronically Signed On 11-25-18 06:53:43 CDT by Geovany Mark
[2018-11-25 19:16] VITALS: BP 107/88; TEMP 97.6; O2SAT 100
== END 2018-11-24 13:13 | disposition home or self-care (01) ==
LOC: ER 09:51
DX: K76.9 Liver disease, unspecified (principal); I10 Essential (primary) hypertension
CPT/HCPCS: 36415; 76705; 80048; 80076; 83690; 84484; 85025; 93005; 96361; 96374; 96375; 99284; J2405; J7030

== ENCOUNTER 2018-12-04 13:35 | Emergency (ER) | payer SELFPAY ==
--- OUTSIDE RECORDS SUMMARY | 2018-12-04 13:38 | XMS REPORT | Clinical Summary ---
:1960 Author Organization [facility] Address [address] [place] [address] Care Team Providers Name Role Phone Garett [...] of skin (HCC) Tony Valdes MD after 12/03/2017 Family History Medical History Relation Name Comments [...] Not on file Implants Implanted Type Area Disk Operator Device Identifier Shelf Model / Expiration Serial / Lot Date Grft Eptfe-Heparin Rng [id number] - [id number] Graft/P Right: WL GORE & 05/12/2021 [id number] / Implanted: Qty: 1 on 09/25/2017 by Javi Urban MD [facility] Leg ASSC:MED PRDT [id number] / Synergy Stents- Left: [employer]ON [id number] 12/24/2019 [id number] / Implanted: Qty: 1 on 03/04/2018 by Isael Rocha MD [employer] / y [id number] Stents- [employer] [id number] 09/19/2019 [id number] / Implanted: Qty: 1 on 03/04/2018 by Isael Rocha MD Per[employer] / ral [id number] [employer]quet Hemashield Gold Knitted Microvel Double Velour Vascular Graft 7mm X 30cm Right: [employer] 02/22/2022 [id number] / Implanted: Qty: 1 on 09/25/2017 by Javi Urban MD Leg [id number] / Procedures Procedure Name Priority Date/Time Associated [...] unspecified vessel or lesion type, unspecified whether [place] or transplanted heart (HCC) Case Notes (3) [...] (7) STAT 03/02/2018 6:07 PM CDT after 12/03/2017 Results RHYTHM STRIP - SCAN (09/08/2018 12:36 PM CDT)Only the most recent of3 resultswithin the time period is included. Narrative Performed At CARDIAC CATH REPORT - SCAN (03/10/2018 12:01 PM CDT) Narrative Performed At CBC with platelet count + automated diff (03/07/2018 4:06 AM CDT)Only the most recent of6 resultswithin the time period is included. WBC 10.2 3.5 - 10.5 K/L [facility] RBC 3.90 (L) 4.63 - 6.08 M/L [facility] Hemoglobin 12.0 (L) 13.7 - 17.5 GM/DL [facility] Hematocrit 35.3 (L) 40.1 - 51.0 % [facility] MCV 90.5 79.0 - 92.2 fL [facility] MCH 30.8 25.7 - 32.2 pg [facility] MCHC 34.0 32.3 - 36.5 GM/DL [facility] RDW 13.3 11.6 - 14.4 % [facility] Platelets 233 150 - 450 K/CU MM [facility] MPV 10.9 9.4 - 12.4 fL [facility] nRBC 0 0 - 0 /100 WBC [facility] % Neutros 58 % [facility] % Lymphs 25 % [facility] % Monos 11 % [facility] % Eos 5 % [facility] % Baso 1 % [facility] # Neutros 5.92 (H) 1.78 - 5.38 K/L [facility] # Lymphs 2.51 1.32 - 3.57 K/L [facility] # Monos 1.12 (H) 0.30 - 0.82 K/L [facility] # Eos 0.50 0.04 - 0.54 K/L [facility] # Baso 0.06 0.01 - 0.08 K/L [facility] Immature Granulocytes-Relative 0 0 - 1 % [facility] Specimen Blood Performing Organization Address City/State/Zipcode Phone Number [facility] [address] [address] [place] Basic metabolic panel (03/07/2018 4:06 AM CDT)Only the most recent of6 resultswithin the time period is included. Sodium 139 136 - 145 meq/L [facility] Potassium 3.5 3.5 - 5.1 meq/L [facility] Chloride 105 98 - 107 meq/L [facility] CO2 25 22 - 29 meq/L [facility] BUN 8 7 - 21 mg/dL [facility] Creatinine 0.78 0.57 - 1.25 mg/dL [facility] Glucose 119 (H) 70 - 105 mg/dL [facility] Calcium 8.9 8.4 - 10.2 mg/dL [facility] EGFR 124Comment: ESTIMATED GFR IS mL/min/1.73 sq m [facility] NOT ACCURATE CREATININE [facility] CLEARANCE IN PREDICTING GLOMERULAR FILTRATION RATE. ESTIMATED GFR IS NOT APPLICABLE FOR DIALYSIS PATIENTS. Specimen Blood Performing Organization Address City/State/Zipcode Phone Number [address] [address] [place] Blood culture (03/06/2018 11:31 AM CDT)Only the most recent of3 resultswithin the time period is included. Result No growth in 5 days [facility] Specimen Blood Performing Organization Address City/State/Zipcode Phone Number [address] [phone] [place] YOSVANY's Only(Ankle/Brachial Index) (03/06/2018 10:32 AM CDT) Ejection Fraction [facility] CPACS Specimen Impressions Performed At Right Impression [facility] CPA 1. The posterior [...] At LAB - Lower Extremity Arterial Procedure [facility] Demographics Patient NATALIA Trejo Date of Study 03/06/2018 NORAH 57 Visit [id number] Male of 1960 Number Referring Rocha IsaelReji Number [id number] Physician Research Dietitian Evelia LisatingJon Ramirez T Physician , CITLALI [...] Study 03/06/2018 NORAH Age 57 Visit Number [id number] Gender Male Date of 1960 Number Referring Josefina Kirkland MD Room Number C631 Physician Research Dietitian Evelia Cheng Interpreting BOBY OneilT Physician , [...] are measured in cm Performing Organization Address City/[facility] Phone Number [facility] aPTT (03/06/2018 6:42 AM CDT)Only the most recent of13 resultswithin the time period is included. PTT 107.0 (H) 22.5 - 36.0 seconds [facility] Specimen Blood Performing Organization Address [facility] Phone Number [address] [address] CENTER TRANSFUSION SERVICE REPORT - SCAN (03/04/2018 6:00 PM CDT) Narrative Performed At POC ACTIVATED CLOTTING TIME (03/04/2018 3:45 PM CDT) Activated Clotting Time 269Comment: TESTED AT sec [address] [place] [address] Specimen Blood Performing Organization Address [facility]/Zipcode Phone Number [address] [address] CENTER CTA AAA and Runoff (03/03/2018 7:18 PM CDT) Specimen Narrative Performed At Addendum Begins Zeetl RIS REPORT STATUS:A Addendum: I reviewed the nonvascular features of this examination and concur with Dr. Restrepo's report. Signed: Juan Esparza MD Report Verified Date/Time:03/04/2018 15:50:09 Reading Location: [place] [address] Angio Body Reading Room Addendum Ends FINAL [...] dynamic data set. In the right, the [place] right SFA is occluded. The right profunda [...] to femoral bypass graft is identified. 3.The [place] left SFA is occluded. The right SFA [...] dictated regarding the non-vascular findings by the Patient Support Representative Radiologist. Signed: Shawn Restrepo MD Report Verified Date/Time:03/04/2018 07:12:51 Reading Location: [place] [id number] Cardiology MRI Procedure Note Interface, External Ris In - 03/04/2018 3:52 PM CDT Addendum Begins REPORT STATUS:A Addendum: I reviewed the nonvascular features of this examination and concur with Dr. Restrepo's report. Signed: Juan Esparza MD Report Verified Date/Time: 03/04/2018 15:50:09 Reading Location: [facility] P048 Angio Body Reading Room Addendum Ends [...] dynamic data set. In the right, the [place] right SFA is occluded. The right profunda [...] femoral bypass graft is identified. 3. The [place] left SFA is occluded. The right SFA [...] dictated regarding the non-vascular findings by the Patient Support Representative Radiologist. Signed: Shawn Restrepo MD Report Verified Date/Time: 03/04/2018 07:12:51 Reading Location: [facility] B1 P047 Cardiology MRI Performing Organization Address City/State/Zipcode Phone Number GE RIS Type and screen, automated (03/03/2018 2:39 PM CDT) ABO/RH AUTOMATED (BEAKER) A POSITIVE [facility] Ab Scrn NEGATIVE [facility] Specimen Blood Performing Organization Address City/[facility]/Zipcode Phone Number [facility] [address] [place] [address] [phone] XR foot 3 views right (03/03/2018 7:03 AM CDT) Specimen Narrative Performed At FINAL REPORT [place] TECHNIQUE: Frontal, lateral, and oblique radiographs of [...] MD Report Verified Date/Time:03/03/2018 08:43:54 Reading Location: [facility] Radiology Reading Room Procedure Note Interface, External [...] Report Verified Date/Time: 03/03/2018 08:43:54 Reading Location: [facility] Radiology Reading Room Performing Organization Address City/State/Zipcode Phone Number [place] Arterial doppler leg, right (03/02/2018 9:28 PM CDT) Ejection [facility] CPACS Specimen Impressions Performed At Right Impression [facility] CPACS 1. The right [...] + + + + + + !Prox HEMATOLOGY SUPERVISOR ! !18.6 !! ! + + + + + + !Mid HEMATOLOGY SUPERVISOR ! !21.7 !! ! + + + + + + !Dist HEMATOLOGY SUPERVISOR ! !30.9 !! ! + + + [...] At LAB - Lower Extremity Arterial Duplex [facility] Demographics Patient NameSNATALIA RICHARD Date of Study 03/02/2018 NORAH 57 Visit [id number] Male of 1960 Number Referring Ravi FontanaRoom Number [id number] Physician Research Dietitian Luis Carlos NajerapretingJ. Zbigniew Ramirez, Physician , [...] Study 03/02/2018 NORAH Age 57 Visit Number [id number] Gender Male Date of 1960 Number Referring Ravi Fontana Room Number [id number] Physician Research Dietitian Luis Carlos Villalta Interpreting Jon Ramirez, Physician [...] + + + -------+ + + !Prox HEMATOLOGY SUPERVISOR ! !18.6 ! ! ! + + + -------+ + + !Mid HEMATOLOGY SUPERVISOR ! !21.7 ! ! ! + + + -------+ + + !Dist HEMATOLOGY SUPERVISOR ! !30.9 ! ! ! + + [...] + Performing Organization Address City/State/Zipcode Phone Number [facility] Venous doppler leg, right (03/02/2018 8:00 PM CDT) Ejection Fraction [facility] Specimen Impressions Performed At Right Impression [facility] 1. There is no deep venous [...] PV LAB - Lower Extremities DVT Study [facility] HEARTFlywheel HealthcareON [facility] Demographics Patient NATALIA Trejo Date of Study 03/02/2018 NORAH 57 Visit [id number] Male of 1960 Number Referring Ravi FontanaRoom Number [id number] Physician Research Dietitian Justin Gallagher RVT InterpretingJon Ramirez Physician , [...] Study 03/02/2018 NORAH Age 57 Visit Number [id number] Gender Male Date of 1960 Number Referring Ravi Fontana Room Number 1035 Physician Research Dietitian Justin Gallagher RVT Interpreting Jon Ramirez, Physician , CITLALI [...] are measured in cm Performing Organization Address City/[facility] Phone Number [facility] C-Reactive Protein (03/02/2018 6:07 PM CDT) CRP 0.04 0.00 - 0.50 mg/dL [facility] Specimen Blood Performing Organization Address City/[facility] Phone Number [facility] [address] [place] [address] [phone] CENTER after 12/03/2017 Advance Directives For more information, please contact:[address] [phone] Code Status Date Activated Date Inactivated Comments Full Code 03/03/2018 2:37 AM 03/07/2018 2:32 PM This code status was determined by: Patient Full Code 09/25/2017 5:46 PM 09/30/2017 3:19 PM This code status was determined by: Patient Full Code 09/25/2017 7:33 AM 09/25/2017 5:46 PM This code status was determined by: Patient
--- OUTSIDE RECORDS SUMMARY | 2018-12-04 13:39 | XMS REPORT ---
:1960 Author Organization [facility] Address [facility] [address] [place] [address] Care Team Providers Name Role Phone CARLI [...] Value Reference Range Comments CULTURE (BEAKER) (test nfmf=9066) No growth in 5 days BLOOD [id number] 18:00:00 Test Item Value Reference Range Comments CULTURE (BEAKER) (test lyvn=2851) No growth in 5 days BLOOD [id number] 00:00:00 Test Item Value Reference Range Comments CULTURE (BEAKER) (test szgu=2454) No growth in 5 days BASIC METABOLIC [id number] 05:57:00 Test Item Value Reference Range Comments SODIUM (BEAKER) (test 139 meq/L 136-145 pigk=407) POTASSIUM (BEAKER) (test 3.5 meq/L 3.5-5.1 mcmx=557) CHLORIDE (BEAKER) (test 105 meq/L 98-107 rwam=402) CO2 (BEAKER) (test 25 meq/L 22-29 roza=266) BLOOD UREA NITROGEN 8 mg/dL 7-21 (BEAKER) (test zfti=527) CREATININE (BEAKER) (test 0.78 mg/dL 0.57-1.25 pdid=628) GLUCOSE RANDOM (BEAKER) 119 mg/dL 70-105 (test xaap=637) CALCIUM (BEAKER) (test 8.9 mg/dL 8.4-10.2 pdkl=505) EGFR (BEAKER) (test 124 mL/min/1.73 sq m ESTIMATED GFR IS NOT wtki=1101) ACCURATE CREATININE CLEARANCE IN PREDICTING GLOMERULAR FILTRATION RATE. ESTIMATED GFR IS NOT APPLICABLE FOR DIALYSIS PATIENTS. CBC W/PLT COUNT & AUTO [id number] 05:11:00 Test Item Value Reference Range Comments WHITE BLOOD CELL COUNT (BEAKER) (test zwyk=678) 10.2 K/ L 3.5-10.5 RED BLOOD CELL COUNT (BEAKER) (test xhyj=161) 3.90 M/ L 4.63-6.08 HEMOGLOBIN (BEAKER) (test evbq=213) 12.0 GM/DL 13.7-17.5 HEMATOCRIT (BEAKER) (test arpi=289) 35.3 % 40.1-51.0 MEAN CORPUSCULAR VOLUME (BEAKER) (test nzzy=925) 90.5 fL 79.0-92.2 MEAN CORPUSCULAR HEMOGLOBIN (BEAKER) (test 30.8 pg 25.7-32.2 eunt=076) MEAN CORPUSCULAR HEMOGLOBIN CONC (BEAKER) (test 34.0 GM/DL 32.3-36.5 dkjo=780) RED CELL DISTRIBUTION WIDTH (BEAKER) (test 13.3 % 11.6-14.4 hxkq=616) PLATELET COUNT (BEAKER) (test qqyj=132) 233 K/CU MM 150-450 MEAN PLATELET VOLUME (BEAKER) (test fbgt=105) 10.9 fL 9.4-12.4 NUCLEATED RED BLOOD CELLS (BEAKER) (test 0 /100 WBC 0-0 aege=097) NEUTROPHILS RELATIVE PERCENT (BEAKER) (test 58 % yujo=720) LYMPHOCYTES RELATIVE PERCENT (BEAKER) (test 25 % dpur=058) MONOCYTES RELATIVE PERCENT (BEAKER) (test 11 % vqpd=841) EOSINOPHILS RELATIVE PERCENT (BEAKER) (test 5 % tvzd=623) BASOPHILS RELATIVE PERCENT (BEAKER) (test 1 % vipi=168) NEUTROPHILS ABSOLUTE COUNT (BEAKER) (test 5.92 K/ L 1.78-5.38 sdai=502) LYMPHOCYTES ABSOLUTE COUNT (BEAKER) (test 2.51 K/ L 1.32-3.57 vbbk=637) MONOCYTES ABSOLUTE COUNT (BEAKER) (test 1.12 K/ L 0.30-0.82 ilek=338) EOSINOPHILS ABSOLUTE COUNT (BEAKER) (test 0.50 K/ L 0.04-0.54 drvo=822) BASOPHILS ABSOLUTE COUNT (BEAKER) (test 0.06 K/ L 0.01-0.08 vrxi=275) IMMATURE GRANULOCYTES-RELATIVE PERCENT (BEAKER) 0 % 0-1 (test jnie=3613) [id number] 07:07:00 Test Item Value Reference Range Comments PARTIAL THROMBOPLASTIN TIME (BEAKER) (test 107.0 seconds 22.5-36.0 etfr=916) [id number] 06:15:00 Test Item Value Reference Range Comments PARTIAL THROMBOPLASTIN TIME (BEAKER) (test 117.6 seconds 22.5-36.0 hbmd=175) [id number] 05:49:00 Test Item Value Reference Range Comments PARTIAL THROMBOPLASTIN TIME (BEAKER) (test 96.1 seconds 22.5-36.0 ywqz=882) BASIC METABOLIC [id number] 05:21:00 Test Item Value Reference Range Comments SODIUM (BEAKER) (test 137 meq/L 136-145 ljae=486) POTASSIUM (BEAKER) (test 3.8 meq/L 3.5-5.1 mdnm=134) CHLORIDE (BEAKER) (test 104 meq/L 98-107 fwkv=464) CO2 (BEAKER) (test 24 meq/L 22-29 fkmq=395) BLOOD UREA NITROGEN 9 mg/dL 7-21 (BEAKER) (test aaqc=220) CREATININE (BEAKER) (test 0.80 mg/dL 0.57-1.25 wgcm=592) GLUCOSE RANDOM (BEAKER) 93 mg/dL 70-105 (test rxfk=881) CALCIUM (BEAKER) (test 8.7 mg/dL 8.4-10.2 osxs=363) EGFR (BEAKER) (test 121 mL/min/1.73 sq m ESTIMATED GFR IS NOT oimq=2753) ACCURATE CREATININE CLEARANCE IN PREDICTING GLOMERULAR FILTRATION RATE. ESTIMATED GFR IS NOT APPLICABLE FOR DIALYSIS PATIENTS. CBC W/PLT COUNT & AUTO [id number] 04:58:00 Test Item Value Reference Range Comments WHITE BLOOD CELL COUNT (BEAKER) (test fhbk=022) 11.2 K/ L 3.5-10.5 RED BLOOD CELL COUNT (BEAKER) (test liqc=088) 3.92 M/ L 4.63-6.08 HEMOGLOBIN (BEAKER) (test ktvd=898) 12.0 GM/DL 13.7-17.5 HEMATOCRIT (BEAKER) (test dnls=024) 35.0 % 40.1-51.0 MEAN CORPUSCULAR VOLUME (BEAKER) (test hgck=476) 89.3 fL 79.0-92.2 MEAN CORPUSCULAR HEMOGLOBIN (BEAKER) (test 30.6 pg 25.7-32.2 bngx=015) MEAN CORPUSCULAR HEMOGLOBIN CONC (BEAKER) (test 34.3 GM/DL 32.3-36.5 amxa=933) RED CELL DISTRIBUTION WIDTH (BEAKER) (test 13.3 % 11.6-14.4 hbxm=519) PLATELET COUNT (BEAKER) (test hsxi=122) 222 K/CU MM 150-450 MEAN PLATELET VOLUME (BEAKER) (test nnwo=809) 10.6 fL 9.4-12.4 NUCLEATED RED BLOOD CELLS (BEAKER) (test 0 /100 WBC 0-0 kjvw=026) NEUTROPHILS RELATIVE PERCENT (BEAKER) (test 53 % vvql=520) LYMPHOCYTES RELATIVE PERCENT (BEAKER) (test 32 % xhjr=801) MONOCYTES RELATIVE PERCENT (BEAKER) (test 11 % tvyg=341) EOSINOPHILS RELATIVE PERCENT (BEAKER) (test 4 % dkwd=464) BASOPHILS RELATIVE PERCENT (BEAKER) (test 0 % kpma=401) NEUTROPHILS ABSOLUTE COUNT (BEAKER) (test 6.00 K/ L 1.78-5.38 ltpq=830) LYMPHOCYTES ABSOLUTE COUNT (BEAKER) (test 3.57 K/ L 1.32-3.57 gomz=619) MONOCYTES ABSOLUTE COUNT (BEAKER) (test 1.20 K/ L 0.30-0.82 yaav=498) EOSINOPHILS ABSOLUTE COUNT (BEAKER) (test 0.40 K/ L 0.04-0.54 hesu=637) BASOPHILS ABSOLUTE COUNT (BEAKER) (test 0.03 K/ L 0.01-0.08 fvzs=488) IMMATURE GRANULOCYTES-RELATIVE PERCENT (BEAKER) 0 % 0-1 (test dqsw=5776) [id number] 21:35:00 Test Item Value Reference Range Comments PARTIAL THROMBOPLASTIN TIME (BEAKER) (test 89.5 seconds 22.5-36.0 dano=557) [id number] 15:44:00 Test Item Value Reference Range Comments PARTIAL THROMBOPLASTIN TIME (BEAKER) (test 85.8 seconds 22.5-36.0 mtti=545) [id number] 09:50:00 Test Item Value Reference Range Comments PARTIAL THROMBOPLASTIN TIME (BEAKER) (test 53.6 seconds 22.5-36.0 fwlr=220) BASIC METABOLIC [id number] 06:24:00 Test Item Value Reference Range Comments SODIUM (BEAKER) (test 137 meq/L 136-145 qtji=192) POTASSIUM (BEAKER) (test 3.8 meq/L 3.5-5.1 ixkt=694) CHLORIDE (BEAKER) (test 105 meq/L 98-107 ginn=287) CO2 (BEAKER) (test 24 meq/L 22-29 pfmg=665) BLOOD UREA NITROGEN 11 mg/dL 7-21 (BEAKER) (test tivu=138) CREATININE (BEAKER) (test 0.76 mg/dL 0.57-1.25 hvia=386) GLUCOSE RANDOM (BEAKER) 94 mg/dL 70-105 (test ikbl=007) CALCIUM (BEAKER) (test 8.5 mg/dL 8.4-10.2 qfsj=859) EGFR (BEAKER) (test 128 mL/min/1.73 sq m ESTIMATED GFR IS NOT pnfl=1321) ACCURATE CREATININE CLEARANCE IN PREDICTING GLOMERULAR FILTRATION RATE. ESTIMATED GFR IS NOT APPLICABLE FOR DIALYSIS PATIENTS. CBC W/PLT COUNT & AUTO [id number] 06:22:00 Test Item Value Reference Range Comments WHITE BLOOD CELL COUNT (BEAKER) (test ylmw=390) 12.3 K/ L 3.5-10.5 RED BLOOD CELL COUNT (BEAKER) (test kgjj=665) 4.01 M/ L 4.63-6.08 HEMOGLOBIN (BEAKER) (test iqdy=064) 12.1 GM/DL 13.7-17.5 HEMATOCRIT (BEAKER) (test nift=314) 36.4 % 40.1-51.0 MEAN CORPUSCULAR VOLUME (BEAKER) (test gjfi=836) 90.8 fL 79.0-92.2 MEAN CORPUSCULAR HEMOGLOBIN (BEAKER) (test 30.2 pg 25.7-32.2 ljrb=968) MEAN CORPUSCULAR HEMOGLOBIN CONC (BEAKER) (test 33.2 GM/DL 32.3-36.5 qsow=543) RED CELL DISTRIBUTION WIDTH (BEAKER) (test 13.4 % 11.6-14.4 pbju=996) PLATELET COUNT (BEAKER) (test bhyb=414) 233 K/CU MM 150-450 MEAN PLATELET VOLUME (BEAKER) (test dlqp=999) 10.7 fL 9.4-12.4 NUCLEATED RED BLOOD CELLS (BEAKER) (test 0 /100 WBC 0-0 ejss=249) NEUTROPHILS RELATIVE PERCENT (BEAKER) (test 70 % ffwd=496) LYMPHOCYTES RELATIVE PERCENT (BEAKER) (test 21 % xlpt=286) MONOCYTES RELATIVE PERCENT (BEAKER) (test 7 % nkbl=931) EOSINOPHILS RELATIVE PERCENT (BEAKER) (test 2 % qeir=903) BASOPHILS RELATIVE PERCENT (BEAKER) (test 0 % wdwd=765) NEUTROPHILS ABSOLUTE COUNT (BEAKER) (test 8.59 K/ L 1.78-5.38 zpgi=360) LYMPHOCYTES ABSOLUTE COUNT (BEAKER) (test 2.52 K/ L 1.32-3.57 jafh=572) MONOCYTES ABSOLUTE COUNT (BEAKER) (test 0.86 K/ L 0.30-0.82 bnuq=963) EOSINOPHILS ABSOLUTE COUNT (BEAKER) (test 0.23 K/ L 0.04-0.54 oyqo=944) BASOPHILS ABSOLUTE COUNT (BEAKER) (test 0.03 K/ L 0.01-0.08 ondn=480) IMMATURE GRANULOCYTES-RELATIVE PERCENT (BEAKER) 0 % 0-1 (test ordr=4910) [id number] 17:27:00 Test Item Value Reference Range Comments ACTIVATED CLOTTING TIME 269 sec TESTED AT [facility] [address] (BEAKER) (test ztnv=695) [place] [address] CT, CTA AAA, W/ [place].EXT.[id number] 15:50:00Please page me when done. Need stat cta for surgery. Thanks.Addendum BeginsREPORT STATUS:A Addendum: I reviewed the nonvascular features of this examination and concur with Dr. Restrepo's report. Signed: Juan Esparza MDReport Verified Date/ Time: 03/04/2018 15:50:09 Reading Location: [place] [address] Angio Body Reading RoomAddendum EndsFINAL REPORT CT [...] dynamic data set. In the right, the ak chin right SFA is occluded. The right profunda [...] femoral bypass graft is identified. 3. The ak chin left SFA is occluded. The right SFA [...] dictated regarding the non-vascular findings by the Tool Tender Radiologist. Signed: Shawn Restrepo MDReport Verified Date/Time: 03/04/2018 07:12:51 Reading Location: [place] [id number] MRI [id number] 10:51:00 Test Item Value Reference Range Comments PARTIAL THROMBOPLASTIN TIME (BEAKER) (test 66.0 seconds 22.5-36.0 hwad=968) BASIC METABOLIC [id number] 02:33:00 Test Item Value Reference Range Comments SODIUM (BEAKER) (test 137 meq/L 136-145 tmai=409) POTASSIUM (BEAKER) (test 3.8 meq/L 3.5-5.1 dmnj=635) CHLORIDE (BEAKER) (test 106 meq/L 98-107 bpke=563) CO2 (BEAKER) (test 21 meq/L 22-29 ufqn=797) BLOOD UREA NITROGEN 7 mg/dL 7-21 (BEAKER) (test brwi=588) CREATININE (BEAKER) (test 0.77 mg/dL 0.57-1.25 upqy=909) GLUCOSE RANDOM (BEAKER) 96 mg/dL 70-105 (test ukpg=077) CALCIUM (BEAKER) (test 9.1 mg/dL 8.4-10.2 brhu=856) EGFR (BEAKER) (test 126 mL/min/1.73 sq m ESTIMATED GFR IS NOT vwgb=3373) ACCURATE CREATININE CLEARANCE IN PREDICTING GLOMERULAR FILTRATION RATE. ESTIMATED GFR IS NOT APPLICABLE FOR DIALYSIS PATIENTS. [id number] 02:28:00 Test Item Value Reference Range Comments PARTIAL THROMBOPLASTIN TIME (BEAKER) (test 44.6 seconds 22.5-36.0 rqqg=462) CBC W/PLT COUNT & AUTO [id number] 02:20:00 Test Item Value Reference Range Comments WHITE BLOOD CELL COUNT (BEAKER) (test jylm=673) 10.5 K/ L 3.5-10.5 RED BLOOD CELL COUNT (BEAKER) (test ltpa=979) 4.55 M/ L 4.63-6.08 HEMOGLOBIN (BEAKER) (test jwgy=169) 14.0 GM/DL 13.7-17.5 HEMATOCRIT (BEAKER) (test qewy=311) 40.5 % 40.1-51.0 MEAN CORPUSCULAR VOLUME (BEAKER) (test aryf=483) 89.0 fL 79.0-92.2 MEAN CORPUSCULAR HEMOGLOBIN (BEAKER) (test 30.8 pg 25.7-32.2 roup=551) MEAN CORPUSCULAR HEMOGLOBIN CONC (BEAKER) (test 34.6 GM/DL 32.3-36.5 zmjk=455) RED CELL DISTRIBUTION WIDTH (BEAKER) (test 13.3 % 11.6-14.4 dtym=260) PLATELET COUNT (BEAKER) (test xlur=932) 262 K/CU MM 150-450 MEAN PLATELET VOLUME (BEAKER) (test uoun=662) 10.1 fL 9.4-12.4 NUCLEATED RED BLOOD CELLS (BEAKER) (test 0 /100 WBC 0-0 tshx=424) NEUTROPHILS RELATIVE PERCENT (BEAKER) (test 57 % sapx=276) LYMPHOCYTES RELATIVE PERCENT (BEAKER) (test 32 % zbaq=438) MONOCYTES RELATIVE PERCENT (BEAKER) (test 7 % raqx=052) EOSINOPHILS RELATIVE PERCENT (BEAKER) (test 3 % hpyd=697) BASOPHILS RELATIVE PERCENT (BEAKER) (test 1 % pvhn=606) NEUTROPHILS ABSOLUTE COUNT (BEAKER) (test 6.00 K/ L 1.78-5.38 lchx=059) LYMPHOCYTES ABSOLUTE COUNT (BEAKER) (test 3.38 K/ L 1.32-3.57 mxmt=166) MONOCYTES ABSOLUTE COUNT (BEAKER) (test 0.74 K/ L 0.30-0.82 chfa=049) EOSINOPHILS ABSOLUTE COUNT (BEAKER) (test 0.34 K/ L 0.04-0.54 avbf=797) BASOPHILS ABSOLUTE COUNT (BEAKER) (test 0.05 K/ L 0.01-0.08 kgcp=574) IMMATURE GRANULOCYTES-RELATIVE PERCENT (BEAKER) 0 % 0-1 (test phbj=2923) [id number] 23:51:00 Test Item Value Reference Range Comments PARTIAL THROMBOPLASTIN TIME (BEAKER) (test > seconds 22.5-36.0 zial=226) [id number] 15:27:00 Test Item Value Reference Range Comments PARTIAL THROMBOPLASTIN TIME (BEAKER) (test 56.5 seconds 22.5-36.0 mfqt=252) RAD, FOOT, MIN 3 VIEWS, [id number] 08:43:00Reason for exam:->Foot ulcer - r/o osteoFINAL [...] Ryaneport Verified Date/Time: 03/03/2018 08:43:54 Reading Location: [facility] Radiology Reading Room [id number] 08:24:00 Test Item Value Reference Range Comments PARTIAL THROMBOPLASTIN TIME (BEAKER) (test 67.3 seconds 22.5-36.0 laxt=668) [id number] 06:15:00 Test Item Value Reference Range Comments PARTIAL THROMBOPLASTIN TIME (BEAKER) (test 180.5 seconds 22.5-36.0 zdct=376) Prior to initiating heparinBASIC METABOLIC [id number] 04:42:00 Test Item Value Reference Range Comments SODIUM (BEAKER) (test 139 meq/L 136-145 xcet=420) POTASSIUM (BEAKER) (test 3.6 meq/L 3.5-5.1 tqrr=470) CHLORIDE (BEAKER) (test 108 meq/L 98-107 wfxh=659) CO2 (BEAKER) (test 25 meq/L 22-29 codk=111) BLOOD UREA NITROGEN 8 mg/dL 7-21 (BEAKER) (test qned=736) CREATININE (BEAKER) (test 0.77 mg/dL 0.57-1.25 ajsn=632) GLUCOSE RANDOM (BEAKER) 95 mg/dL 70-105 (test brlu=731) CALCIUM (BEAKER) (test 8.7 mg/dL 8.4-10.2 stxt=691) EGFR (BEAKER) (test 126 mL/min/1.73 sq m ESTIMATED GFR IS NOT oplm=1533) ACCURATE CREATININE CLEARANCE IN PREDICTING GLOMERULAR FILTRATION RATE. ESTIMATED GFR IS NOT APPLICABLE FOR DIALYSIS PATIENTS. CBC W/PLT COUNT & AUTO [id number] 04:31:00 Test Item Value Reference Range Comments WHITE BLOOD CELL COUNT (BEAKER) (test xjoq=387) 9.4 K/ L 3.5-10.5 RED BLOOD CELL COUNT (BEAKER) (test nnpe=612) 4.41 M/ L 4.63-6.08 HEMOGLOBIN (BEAKER) (test iief=215) 13.4 GM/DL 13.7-17.5 HEMATOCRIT (BEAKER) (test vkpu=667) 39.5 % 40.1-51.0 MEAN CORPUSCULAR VOLUME (BEAKER) (test ikml=576) 89.6 fL 79.0-92.2 MEAN CORPUSCULAR HEMOGLOBIN (BEAKER) (test 30.4 pg 25.7-32.2 waou=526) MEAN CORPUSCULAR HEMOGLOBIN CONC (BEAKER) (test 33.9 GM/DL 32.3-36.5 rwwo=578) RED CELL DISTRIBUTION WIDTH (BEAKER) (test 13.4 % 11.6-14.4 vyjb=722) PLATELET COUNT (BEAKER) (test mkim=608) 241 K/CU MM 150-450 MEAN PLATELET VOLUME (BEAKER) (test cpkp=981) 10.2 fL 9.4-12.4 NUCLEATED RED BLOOD CELLS (BEAKER) (test 0 /100 WBC 0-0 xelz=248) NEUTROPHILS RELATIVE PERCENT (BEAKER) (test 51 % ivua=103) LYMPHOCYTES RELATIVE PERCENT (BEAKER) (test 38 % cmcq=756) MONOCYTES RELATIVE PERCENT (BEAKER) (test 7 % tmua=214) EOSINOPHILS RELATIVE PERCENT (BEAKER) (test 4 % cmac=680) BASOPHILS RELATIVE PERCENT (BEAKER) (test 0 % gefr=046) NEUTROPHILS ABSOLUTE COUNT (BEAKER) (test 4.77 K/ L 1.78-5.38 mwke=569) LYMPHOCYTES ABSOLUTE COUNT (BEAKER) (test 3.51 K/ L 1.32-3.57 qftw=178) MONOCYTES ABSOLUTE COUNT (BEAKER) (test 0.67 K/ L 0.30-0.82 juak=718) EOSINOPHILS ABSOLUTE COUNT (BEAKER) (test 0.37 K/ L 0.04-0.54 nbtd=144) BASOPHILS ABSOLUTE COUNT (BEAKER) (test 0.03 K/ L 0.01-0.08 ptdi=841) IMMATURE GRANULOCYTES-RELATIVE PERCENT (BEAKER) 0 % 0-1 (test iqmh=6844) [id number] 22:31:00 Test Item Value Reference Range Comments PARTIAL THROMBOPLASTIN TIME (BEAKER) (test 31.2 seconds 22.5-36.0 gcgs=780) Prior to initiating heparinBASIC METABOLIC [id number] 18:30:00 Test Item Value Reference Range Comments SODIUM (BEAKER) (test 139 meq/L 136-145 ksxo=212) POTASSIUM (BEAKER) (test 3.6 meq/L 3.5-5.1 iywm=105) CHLORIDE (BEAKER) (test 106 meq/L 98-107 rrhs=276) CO2 (BEAKER) (test 21 meq/L 22-29 nmku=313) BLOOD UREA NITROGEN 8 mg/dL 7-21 (BEAKER) (test eghi=407) CREATININE (BEAKER) (test 0.83 mg/dL 0.57-1.25 teby=029) GLUCOSE RANDOM (BEAKER) 110 mg/dL 70-105 (test aajh=268) CALCIUM (BEAKER) (test 9.7 mg/dL 8.4-10.2 wqxx=118) EGFR (BEAKER) (test 116 mL/min/1.73 sq m ESTIMATED GFR IS NOT ceej=2296) ACCURATE CREATININE CLEARANCE IN PREDICTING GLOMERULAR FILTRATION RATE. ESTIMATED GFR IS NOT APPLICABLE FOR DIALYSIS PATIENTS. C-REACTIVE [id number] 18:30:00 Test Item Value Reference Range Comments C-REACTIVE PROTEIN (BEAKER) (test xsed=914) 0.04 mg/dL 0.00-0.50 CBC W/PLT COUNT & AUTO [id number] 18:13:00 Test Item Value Reference Range Comments WHITE BLOOD CELL COUNT (BEAKER) (test galk=031) 10.2 K/ L 3.5-10.5 RED BLOOD CELL COUNT (BEAKER) (test sltv=731) 4.65 M/ L 4.63-6.08 HEMOGLOBIN (BEAKER) (test tlpf=688) 14.3 GM/DL 13.7-17.5 HEMATOCRIT (BEAKER) (test ygqg=506) 40.7 % 40.1-51.0 MEAN CORPUSCULAR VOLUME (BEAKER) (test tizv=398) 87.5 fL 79.0-92.2 MEAN CORPUSCULAR HEMOGLOBIN (BEAKER) (test 30.8 pg 25.7-32.2 rpho=388) MEAN CORPUSCULAR HEMOGLOBIN CONC (BEAKER) (test 35.1 GM/DL 32.3-36.5 lykz=610) RED CELL DISTRIBUTION WIDTH (BEAKER) (test 13.3 % 11.6-14.4 irfq=962) PLATELET COUNT (BEAKER) (test vnhb=564) 238 K/CU MM 150-450 MEAN PLATELET VOLUME (BEAKER) (test fbwo=244) 10.1 fL 9.4-12.4 NUCLEATED RED BLOOD CELLS (BEAKER) (test 0 /100 WBC 0-0 jrye=759) NEUTROPHILS RELATIVE PERCENT (BEAKER) (test 64 % llao=254) LYMPHOCYTES RELATIVE PERCENT (BEAKER) (test 26 % crve=330) MONOCYTES RELATIVE PERCENT (BEAKER) (test 7 % absm=663) EOSINOPHILS RELATIVE PERCENT (BEAKER) (test 2 % jxxo=452) BASOPHILS RELATIVE PERCENT (BEAKER) (test 0 % mosm=230) NEUTROPHILS ABSOLUTE COUNT (BEAKER) (test 6.54 K/ L 1.78-5.38 ddqp=893) LYMPHOCYTES ABSOLUTE COUNT (BEAKER) (test 2.64 K/ L 1.32-3.57 ubcr=743) MONOCYTES ABSOLUTE COUNT (BEAKER) (test 0.71 K/ L 0.30-0.82 kimr=660) EOSINOPHILS ABSOLUTE COUNT (BEAKER) (test 0.21 K/ L 0.04-0.54 yefn=616) BASOPHILS ABSOLUTE COUNT (BEAKER) (test 0.04 K/ L 0.01-0.08 liwt=364) IMMATURE GRANULOCYTES-RELATIVE PERCENT (BEAKER) 0 % 0-1 (test luds=0547) TISSUE [id number] 14:18:00Surgical Pathology Report Case: [id number] Authorizing Provider: Greta Urban MD Collected: 09/25/2017 1609 Ordering Location: [facility] Received: 09/26/2017 0819 PERIOPERATIVE SERVICES Pathologist: Dejan Martin MD Specimens: A) - Plaque, LEFT FEMORAL PLAQUE B) -Plaque, RIGHT FEMORAL PLAQUE A. ARTERY, LEFT FEMORAL, ENDARTERECTOMY:CALCIFIC ATHEROSCLEROTIC PLAQUEB. ARTERY, RIGHT FEMORAL, ENDARTERECTOMY:CALCIFIC ATHEROSCLEROTIC PLAQUE WITH ATTACHED FIBRIN THROMBUS Signing Pathologist Direct Phone Line: [phone] signed by Dejan Martin MD on 09/30/2017 at 2:18 [id number]; [id number]. Left femoral plaque. B. Right femoral plaque Specimen A: Received in saline labeled "plaque", description "left femoral plaque" is a 2.5 x 2.5 x 0.5 cm aggregate of sinha-white to yellow-ferreira, rubbery fibrous tissue. Sectioning reveals focal calcification. Able Bodied Watchman sections are submitted in cassette A1 for decalcification.Specimen B: Received in saline labeled "plaque", description "right femoral plaque" are three irregular, sinha-white to yellow-ferreira, rubbery portions of fibrous tissue measuring 1.5 x 1.5 x 0.2 cm in aggregate. Sectioning reveals focal calcification. The specimen is entirely submitted in cassette B1 for decalcification. DB/[id number] 00:38:00 Test Item Value Reference Range Comments MAGNESIUM (BEAKER) (test maxy=003) 2.1 mg/dL 1.6-2.6 BASIC METABOLIC [id number] 00:38:00 Test Item Value Reference Range Comments SODIUM (BEAKER) (test 136 meq/L 136-145 xnwl=079) POTASSIUM (BEAKER) (test 3.8 meq/L 3.5-5.1 xmma=502) CHLORIDE (BEAKER) (test 104 meq/L 98-107 wkrb=128) CO2 (BEAKER) (test 26 meq/L 22-29 nzga=992) BLOOD UREA NITROGEN 11 mg/dL 7-21 (BEAKER) (test ipsq=038) CREATININE (BEAKER) (test 0.92 mg/dL 0.57-1.25 wtsu=861) GLUCOSE RANDOM (BEAKER) 99 mg/dL 70-105 (test sfdc=925) CALCIUM (BEAKER) (test 8.5 mg/dL 8.4-10.2 apbx=844) EGFR (BEAKER) (test 103 mL/min/1.73 sq m ESTIMATED GFR IS NOT phio=8070) ACCURATE CREATININE CLEARANCE IN PREDICTING GLOMERULAR FILTRATION RATE. ESTIMATED GFR IS NOT APPLICABLE FOR DIALYSIS PATIENTS. CBC W/PLT COUNT & AUTO [id number] 13:39:00 Test Item Value Reference Range Comments WHITE BLOOD CELL COUNT 14.6 K/ L 3.5-10.5 (BEAKER) (test ipqa=361) RED BLOOD CELL COUNT (BEAKER) 3.59 M/ L 4.63-6.08 (test eqhi=798) HEMOGLOBIN (BEAKER) (test 11.0 GM/DL 13.7-17.5 vjyn=150) HEMATOCRIT (BEAKER) (test 32.8 % 40.1-51.0 qcoz=230) MEAN CORPUSCULAR VOLUME 91.4 fL 79.0-92.2 (BEAKER) (test mlkk=250) MEAN CORPUSCULAR HEMOGLOBIN 30.6 pg 25.7-32.2 (BEAKER) (test xrlc=763) MEAN CORPUSCULAR HEMOGLOBIN 33.5 GM/DL 32.3-36.5 CONC (BEAKER) (test mnlb=182) RED CELL DISTRIBUTION WIDTH 12.9 % 11.6-14.4 (BEAKER) (test hlko=220) PLATELET COUNT (BEAKER) (test 143 K/CU MM 150-450 wdue=429) MEAN PLATELET VOLUME (BEAKER) 10.8 fL 9.4-12.4 (test uoiv=739) NUCLEATED RED BLOOD CELLS 0 /100 WBC 0-0 (BEAKER) (test exzg=593) NEUTROPHILS RELATIVE PERCENT 66 % This is an appended report. (BEAKER) (test rmiz=593) These results have been appended to a previously final verified report. LYMPHOCYTES RELATIVE PERCENT 20 % This is an appended report. (BEAKER) (test eokn=888) These results have been appended to a previously final verified report. MONOCYTES RELATIVE PERCENT 11 % This is an appended report. (BEAKER) (test nqgt=428) These results have been appended to a previously final verified report. EOSINOPHILS RELATIVE PERCENT 3 % This is an appended report. (BEAKER) (test egpw=908) These results have been appended to a previously final verified report. BASOPHILS RELATIVE PERCENT 0 % This is an appended report. (BEAKER) (test kxko=099) These results have been appended to a previously final verified report. NEUTROPHILS ABSOLUTE COUNT 9.59 K/ L 1.78-5.38 This is an appended report. (BEAKER) (test wawz=585) These results have been appended to a previously final verified report. LYMPHOCYTES ABSOLUTE COUNT 2.96 K/ L 1.32-3.57 This is an appended report. (BEAKER) (test qyre=601) These results have been appended to a previously final verified report. MONOCYTES ABSOLUTE COUNT 1.59 K/ L 0.30-0.82 This is an appended report. (BEAKER) (test tsxr=293) These results have been appended to a previously final verified report. EOSINOPHILS ABSOLUTE COUNT 0.37 K/ L 0.04-0.54 This is an appended report. (BEAKER) (test zkln=196) These results have been appended to a previously final verified report. BASOPHILS ABSOLUTE COUNT 0.04 K/ L 0.01-0.08 This is an appended report. (BEAKER) (test pgiq=843) These results have been appended to a previously final verified report. IMMATURE GRANULOCYTES-RELATIVE 1 % 0-1 This is an appended report. PERCENT (BEAKER) (test These results have been qgpw=5566) appended to a previously final verified report. POCT-GLUCOSE [id number] 09:12:00 Test Item Value Reference Range Comments POC-GLUCOSE METER (BEAKER) 81 mg/dL 70-110 TESTED AT [facility] [address] [facility] (test lutr=6410) [facility] [address] BASIC METABOLIC [id number] 05:02:00 Test Item Value Reference Range Comments SODIUM (BEAKER) (test 136 meq/L 136-145 ntae=351) POTASSIUM (BEAKER) (test 3.8 meq/L 3.5-5.1 lbbl=423) CHLORIDE (BEAKER) (test 105 meq/L 98-107 rfqp=631) CO2 (BEAKER) (test 25 meq/L 22-29 xovv=175) BLOOD UREA NITROGEN 9 mg/dL 7-21 (BEAKER) (test chge=271) CREATININE (BEAKER) (test 0.82 mg/dL 0.57-1.25 dviv=167) GLUCOSE RANDOM (BEAKER) 89 mg/dL 70-105 (test bzmm=062) CALCIUM (BEAKER) (test 8.3 mg/dL 8.4-10.2 mghu=793) EGFR (BEAKER) (test 117 mL/min/1.73 sq m ESTIMATED GFR IS NOT dmmt=6150) ACCURATE CREATININE CLEARANCE IN PREDICTING GLOMERULAR FILTRATION RATE. ESTIMATED GFR IS NOT APPLICABLE FOR DIALYSIS PATIENTS. POCT-GLUCOSE [id number] 21:22:00 Test Item Value Reference Range Comments POC-GLUCOSE METER (BEAKER) 121 mg/dL 70-110 TESTED AT [facility] [address] (test buvf=2011) [facility] [address] [id number] 04:30:00 Test Item Value Reference Range Comments PHOSPHORUS (BEAKER) (test hrha=509) 2.7 mg/dL 2.3-4.7 [id number] 04:30:00 Test Item Value Reference Range Comments MAGNESIUM (BEAKER) (test owic=265) 2.5 mg/dL 1.6-2.6 BASIC METABOLIC [id number] 04:30:00 Test Item Value Reference Range Comments SODIUM (BEAKER) (test 134 meq/L 136-145 mwqv=434) POTASSIUM (BEAKER) (test 3.8 meq/L 3.5-5.1 jetd=446) CHLORIDE (BEAKER) (test 104 meq/L 98-107 qdnv=429) CO2 (BEAKER) (test 22 meq/L 22-29 ajka=513) BLOOD UREA NITROGEN 13 mg/dL 7-21 (BEAKER) (test mfqw=466) CREATININE (BEAKER) (test 0.96 mg/dL 0.57-1.25 fmbl=090) GLUCOSE RANDOM (BEAKER) 115 mg/dL 70-105 (test uczb=735) CALCIUM (BEAKER) (test 8.2 mg/dL 8.4-10.2 rlbx=516) EGFR (BEAKER) (test 98 mL/min/1.73 sq m ESTIMATED GFR IS NOT brbg=[id number]) ACCURATE CREATININE CLEARANCE IN PREDICTING GLOMERULAR FILTRATION RATE. ESTIMATED GFR IS NOT APPLICABLE FOR DIALYSIS PATIENTS. LACTIC ACID, ARTERIAL, WHOLE [id number] 04:15:00 Test Item Value Reference Range Comments LACTATE BLOOD ARTERIAL (2) (BEAKER) (test 1.0 mmol/L 0.5-2.2 sktk=9529) Effective 09/27/2015: Units/Reference Range ChangeNew: 0.5-2.2 mmol/L Previous: 5 -20 mg/dLCBC W/PLT COUNT & AUTO [id number] 04:12:00 Test Item Value Reference Range Comments WHITE BLOOD CELL COUNT (BEAKER) (test yefi=438) 16.5 K/ L 3.5-10.5 RED BLOOD CELL COUNT (BEAKER) (test jdgg=618) 4.08 M/ L 4.63-6.08 HEMOGLOBIN (BEAKER) (test nyxu=984) 12.5 GM/DL 13.7-17.5 HEMATOCRIT (BEAKER) (test uior=758) 36.9 % 40.1-51.0 MEAN CORPUSCULAR VOLUME (BEAKER) (test nzvg=938) 90.4 fL 79.0-92.2 MEAN CORPUSCULAR HEMOGLOBIN (BEAKER) (test 30.6 pg 25.7-32.2 lyng=848) MEAN CORPUSCULAR HEMOGLOBIN CONC (BEAKER) (test 33.9 GM/DL 32.3-36.5 degl=546) RED CELL DISTRIBUTION WIDTH (BEAKER) (test 12.8 % 11.6-14.4 jjjv=052) PLATELET COUNT (BEAKER) (test cqxi=887) 183 K/CU MM 150-450 MEAN PLATELET VOLUME (BEAKER) (test gtzs=362) 10.2 fL 9.4-12.4 NUCLEATED RED BLOOD CELLS (BEAKER) (test 0 /100 WBC 0-0 gyxr=696) NEUTROPHILS RELATIVE PERCENT (BEAKER) (test 80 % dbna=218) LYMPHOCYTES RELATIVE PERCENT (BEAKER) (test 11 % fayp=839) MONOCYTES RELATIVE PERCENT (BEAKER) (test 8 % cpbu=225) EOSINOPHILS RELATIVE PERCENT (BEAKER) (test 1 % nddf=059) BASOPHILS RELATIVE PERCENT (BEAKER) (test 0 % ndcv=329) NEUTROPHILS ABSOLUTE COUNT (BEAKER) (test 13.15 K/ L 1.78-5.38 myvm=183) LYMPHOCYTES ABSOLUTE COUNT (BEAKER) (test 1.85 K/ L 1.32-3.57 rxbe=712) MONOCYTES ABSOLUTE COUNT (BEAKER) (test 1.36 K/ L 0.30-0.82 nwsn=211) EOSINOPHILS ABSOLUTE COUNT (BEAKER) (test 0.10 K/ L 0.04-0.54 ovnd=479) BASOPHILS ABSOLUTE COUNT (BEAKER) (test 0.03 K/ L 0.01-0.08 dxwc=824) IMMATURE GRANULOCYTES-RELATIVE PERCENT (BEAKER) 0 % 0-1 (test fivn=9253) CALCIUM, [id number] 03:51:00 Test Item Value Reference Range Comments CALCIUM IONIZED (BEAKER) (test jsfi=935) 1.08 mmol/L 1.12-1.27 PH, BLOOD (BEAKER) (test afeq=6034) 7.41 POCT-GLUCOSE [id number] 22:24:00 Test Item Value Reference Range Comments POC-GLUCOSE METER (BEAKER) 159 mg/dL 70-110 TESTED AT [facility] [address] [facility] (test swiy=1717) [facility] [address] RAD, CHEST, 1 VIEW, NON [id number] 19:01:00Reason for exam:->central line placement Should this [...] MDReport Verified Date/Time: 2017 19:01:26 Reading Location: [address] Consult Reading Room [id number] 18:09:00 Test Item Value Reference Range Comments PHOSPHORUS (BEAKER) (test uzub=172) 3.1 mg/dL 2.3-4.7 [id number] 18:09:00 Test Item Value Reference Range Comments MAGNESIUM (BEAKER) (test oxch=560) 1.7 mg/dL 1.6-2.6 BASIC METABOLIC [id number] 18:09:00 Test Item Value Reference Range Comments SODIUM (BEAKER) (test 137 meq/L 136-145 rjju=044) POTASSIUM (BEAKER) (test 3.9 meq/L 3.5-5.1 xarb=751) CHLORIDE (BEAKER) (test 108 meq/L 98-107 ygwu=327) CO2 (BEAKER) (test 23 meq/L 22-29 hlru=166) BLOOD UREA NITROGEN 14 mg/dL 7-21 (BEAKER) (test rwnp=199) CREATININE (BEAKER) (test 0.95 mg/dL 0.57-1.25 ahae=346) GLUCOSE RANDOM (BEAKER) 231 mg/dL 70-105 (test hilm=120) CALCIUM (BEAKER) (test 8.1 mg/dL 8.4-10.2 gkny=759) EGFR (BEAKER) (test 99 mL/min/1.73 sq m ESTIMATED GFR IS NOT eydc=4550) ACCURATE CREATININE CLEARANCE IN PREDICTING GLOMERULAR FILTRATION RATE. ESTIMATED GFR IS NOT APPLICABLE FOR DIALYSIS PATIENTS. PROTHROMBIN [id number] 18:01:00 Test Item Value Reference Range Comments PROTIME (BEAKER) (test tzbf=259) 15.8 seconds 11.7-14.7 INR (BEAKER) (test yblt=373) 1.3 <=5.9 RECOMMENDED COUMADIN/WARFARIN INR THERAPY RANGESSTANDARD DOSE: 2.0 - 3.0 Includes: PROPHYLAXIS forvenous thrombosis, systemic embolization; TREATMENT for venous thrombosis and/or pulmonary embolus.HIGH RISK: Target INR is 2.5-3.5 for patients with mechanical heart valves.[id number] 18:01:00 Test Item Value Reference Range Comments FIBRINOGEN LEVEL (BEAKER) (test tirg=634) 354 mg/dl 225-434 [id number] 18:01:00 Test Item Value Reference Range Comments PARTIAL THROMBOPLASTIN TIME (BEAKER) (test 34.5 seconds 22.5-36.0 jpfa=093) CBC W/PLT COUNT & AUTO [id number] 17:52:00 Test Item Value Reference Range Comments WHITE BLOOD CELL COUNT (BEAKER) (test mott=722) 21.1 K/ L 3.5-10.5 RED BLOOD CELL COUNT (BEAKER) (test gmyp=064) 4.68 M/ L 4.63-6.08 HEMOGLOBIN (BEAKER) (test xehs=845) 14.3 GM/DL 13.7-17.5 HEMATOCRIT (BEAKER) (test uqxo=852) 42.8 % 40.1-51.0 MEAN CORPUSCULAR VOLUME (BEAKER) (test ynqs=043) 91.5 fL 79.0-92.2 MEAN CORPUSCULAR HEMOGLOBIN (BEAKER) (test 30.6 pg 25.7-32.2 wgyg=977) MEAN CORPUSCULAR HEMOGLOBIN CONC (BEAKER) (test 33.4 GM/DL 32.3-36.5 agdb=954) RED CELL DISTRIBUTION WIDTH (BEAKER) (test 13.0 % 11.6-14.4 gaeq=489) PLATELET COUNT (BEAKER) (test stnu=436) 216 K/CU MM 150-450 MEAN PLATELET VOLUME (BEAKER) (test ghwb=418) 10.3 fL 9.4-12.4 NUCLEATED RED BLOOD CELLS (BEAKER) (test 0 /100 WBC 0-0 ogmg=504) NEUTROPHILS RELATIVE PERCENT (BEAKER) (test 65 % iikr=315) LYMPHOCYTES RELATIVE PERCENT (BEAKER) (test 24 % fwbd=696) MONOCYTES RELATIVE PERCENT (BEAKER) (test 7 % fgll=736) EOSINOPHILS RELATIVE PERCENT (BEAKER) (test 3 % otfu=750) BASOPHILS RELATIVE PERCENT (BEAKER) (test 0 % ibup=487) NEUTROPHILS ABSOLUTE COUNT (BEAKER) (test 13.75 K/ L 1.78-5.38 bkoy=054) LYMPHOCYTES ABSOLUTE COUNT (BEAKER) (test 4.96 K/ L 1.32-3.57 fjjv=624) MONOCYTES ABSOLUTE COUNT (BEAKER) (test 1.37 K/ L 0.30-0.82 rtit=000) EOSINOPHILS ABSOLUTE COUNT (BEAKER) (test 0.69 K/ L 0.04-0.54 kukr=076) BASOPHILS ABSOLUTE COUNT (BEAKER) (test 0.05 K/ L 0.01-0.08 utwm=874) IMMATURE GRANULOCYTES-RELATIVE PERCENT (BEAKER) 1 % 0-1 (test vadp=5002) HEMOGLOBIN [id number] 14:43:00 Test Item Value Reference Range Comments HEMOGLOBIN A1C (BEAKER) (test zaij=248) 5.6 % 4.3-6.1 BASIC METABOLIC [id number] 12:35:00 Test Item Value Reference Range Comments SODIUM (BEAKER) (test 141 meq/L 136-145 hubz=676) POTASSIUM (BEAKER) (test 4.1 meq/L 3.5-5.1 bsjq=111) CHLORIDE (BEAKER) (test 105 meq/L 98-107 dwii=556) CO2 (BEAKER) (test 28 meq/L 22-29 kzeq=569) BLOOD UREA NITROGEN 9 mg/dL 7-21 (BEAKER) (test ydet=901) CREATININE (BEAKER) (test 0.82 mg/dL 0.57-1.25 oloi=525) GLUCOSE RANDOM (BEAKER) 89 mg/dL 70-105 (test fptb=140) CALCIUM (BEAKER) (test 9.5 mg/dL 8.4-10.2 dipz=496) EGFR (BEAKER) (test 117 mL/min/1.73 sq m ESTIMATED GFR IS NOT smde=2698) ACCURATE CREATININE CLEARANCE IN PREDICTING GLOMERULAR FILTRATION RATE. ESTIMATED GFR IS NOT APPLICABLE FOR DIALYSIS PATIENTS. PROTHROMBIN [id number] 12:32:00 Test Item Value Reference Range Comments PROTIME (BEAKER) (test lluo=971) 13.7 seconds 11.7-14.7 INR (BEAKER) (test tdcr=935) 1.1 <=5.9 RECOMMENDED COUMADIN/WARFARIN INR THERAPY RANGESSTANDARD DOSE: 2.0 - 3.0 Includes: PROPHYLAXIS forvenous thrombosis, systemic embolization; TREATMENT for venous thrombosis and/or pulmonary embolus.HIGH RISK: Target INR is 2.5-3.5 for patients with mechanical heart valves.RAD, CHEST, 2 [id number] 12:21: 00Reason for Exam:->Pre-OpFINAL REPORT Chest two views INDICATION: Preoperative exam. Aortic iliac disease, femoral popliteal artery atherosclerosis COMPARISON: None available IMPRESSION: There is no focal consolidation, vascular congestion, pleural effusion, or pneumothorax. The cardiomediastinal silhouette is unremarkable. There are mild degenerative spine and shoulder changes. Signed: Yaw [place] Verified Date/Time: 09/16/2017 12:21:59 Reading Location: [facility] Radiology Reading Room CBC W/ PLT COUNT & AUTO [id number] 12:19:00 Test Item Value Reference Range Comments WHITE BLOOD CELL COUNT (BEAKER) (test kdpa=292) 8.6 K/ L 3.5-10.5 RED BLOOD CELL COUNT (BEAKER) (test alis=815) 5.05 M/ L 4.63-6.08 HEMOGLOBIN (BEAKER) (test doxg=058) 15.4 GM/DL 13.7-17.5 HEMATOCRIT (BEAKER) (test eqil=057) 47.1 % 40.1-51.0 MEAN CORPUSCULAR VOLUME (BEAKER) (test ligp=101) 93.3 fL 79.0-92.2 MEAN CORPUSCULAR HEMOGLOBIN (BEAKER) (test 30.5 pg 25.7-32.2 kjas=141) MEAN CORPUSCULAR HEMOGLOBIN CONC (BEAKER) (test 32.7 GM/DL 32.3-36.5 mavj=955) RED CELL DISTRIBUTION WIDTH (BEAKER) (test 13.0 % 11.6-14.4 lxqf=756) PLATELET COUNT (BEAKER) (test xabn=160) 272 K/CU MM 150-450 MEAN PLATELET VOLUME (BEAKER) (test moxk=208) 10.6 fL 9.4-12.4 NUCLEATED RED BLOOD CELLS (BEAKER) (test 0 /100 WBC 0-0 ofdd=016) NEUTROPHILS RELATIVE PERCENT (BEAKER) (test 55 % uzrj=258) LYMPHOCYTES RELATIVE PERCENT (BEAKER) (test 33 % ndjs=328) MONOCYTES RELATIVE PERCENT (BEAKER) (test 6 % rvzu=198) EOSINOPHILS RELATIVE PERCENT (BEAKER) (test 5 % prhk=003) BASOPHILS RELATIVE PERCENT (BEAKER) (test 0 % dllu=471) NEUTROPHILS ABSOLUTE COUNT (BEAKER) (test 4.70 K/ L 1.78-5.38 sbnj=554) LYMPHOCYTES ABSOLUTE COUNT (BEAKER) (test 2.83 K/ L 1.32-3.57 fzco=427) MONOCYTES ABSOLUTE COUNT (BEAKER) (test 0.51 K/ L 0.30-0.82 ousr=601) EOSINOPHILS ABSOLUTE COUNT (BEAKER) (test 0.46 K/ L 0.04-0.54 qtkd=641) BASOPHILS ABSOLUTE COUNT (BEAKER) (test 0.03 K/ L 0.01-0.08 ueit=986) IMMATURE GRANULOCYTES-RELATIVE PERCENT (BEAKER) 0 % 0-1 (test owdh=4061)
[2018-12-04] MEDS ORDERED: SUCRALFATE 1 GM TABLET ONE (14:16)
[2018-12-04] MEDS ORDERED: NA CHLORIDE 0.9% 1,000 ML ONE ×2 (14:17→17:45)
[2018-12-04 14:28] LABS: Absolute Lymphocytes (CBC) 1.9 K/uL (0.7-4.9); Basophils % 0.6 % (0-1.3); Eosinophils % 0.8 % (0-4.4); MPV 7.9 fL (7.6-11.3); Monocytes % 7.3 % (3.3-12.3); RBC Red Blood Cell Count 4.76 M/uL (4.33-5.43)
[2018-12-04 14:29] LABS: Protime INR 1.1
[2018-12-04 14:44] LABS: ALT/SGPT 104 U/L (12-78); AST/SGOT 276 U/L (15-37); Albumin 3.6 g/dL (3.4-5.0); Alkaline Phosphatase 164 U/L (45-117); BUN Blood Urea Nitrogen 20 mg/dL (7-18); Bicarbonate 28 mmol/L (21-32); Bilirubin Direct 0.2 mg/dL (0-0.2); Bilirubin Total 0.4 mg/dL (0.2-1.0); Glucose Level 116 mg/dL (74-106); Lipase 176 U/L (73-393); Magnesium 2.5 mg/dL (1.8-2.4); NT PRO-BNP 37 pg/mL (<125); Potassium 3.8 mmol/L (3.5-5.1); Protein, Total 8.5 g/dL (6.4-8.2); Sodium Level 131 mmol/L (136-145); Troponin (Emerg Dept Use Only) < 0.02 ng/mL (0.0-0.045)
--- NOTE | 2018-12-04 14:44 | RAD REPORT ---
EXAM DESCRIPTION: CT - Head C Spine Cap W Con - 12/04/2018 2:19 pm CLINICAL HISTORY: Trauma, head and neck injury. Chest, abdomen and pelvis pain. PAIN COMPARISON: Abdomen Exam Limited dated 11/24/2018; Abdomen Angio dated 08/07/2017 TECHNIQUE: CT head without contrast. CT cervical spine without contrast with coronal and sagittal reformatted images. CT chest, abdomen and pelvis with IV contrast (approximately 100 mL nonionic IV contrast) with zuleta l and sagittal reformatted images of the spine. All CT scans are performed using dose optimization technique as appropriate and may include automated exposure control or mA/KV adjustment according to patient size. FINDINGS: CT HEAD WITHOUT CONTRAST: No intracranial hemorrhage, hydrocephalus or extra-axial fluid collection. No areas of brain edema o r midline shift. The paranasal sinuses and mastoids are clear. The calvarium is intact. CT CERVICAL SPINE WITHOUT CONTRAST: No fracture or subluxation. The prevertebral soft tissues are normal in thickness. CT CHEST, ABDOMEN, PELVIS WITH CONTRAST: The lungs are clear.No pneumothorax or pericardial/pleural fluid. Liver cirrhosis is identified. There is a poorly defined infiltrating mass lesion suspected within th e left lobe of the liver measuring 12.0 x 8.0 cm. Abnormal appearance of the liver parenchyma is seen throughout the left lobe and extending into the caudate lobe of the liver. Lack of flow is seen in t he left portal vein suspicious for portal vein thrombus. No evidence of intra-abdominal visceral injury, free fluid or free air. Bi femoral bypass graft is noted. No acute fracture demonstrated. IMPRESSION: Liver cirrhosis with infiltrating mass involving the majority of the left lobe of the li izzy seen, associated with left portal vein thrombosis, most compatible with HCC. Correlation with alp nunez fetoprotein levels would be advised. No acute trauma related abnormality seen.
--- NOTE | 2018-12-04 14:44 | RAD REPORT ---
EXAM DESCRIPTION: RAD - Chest Single View - 12/04/2018 2:30 pm CLINICAL HISTORY: CHEST PAIN Chest pain. COMPARISON: Chest Pa And Lat (2 Views) dated 11/05/2016 FINDINGS: Portable technique limits examination quality. The lungs are grossly clear. The heart is normal in size. No displaced fractures. IMPRESSION: No acute intrathoracic process suspected.
--- NOTE | 2018-12-04 15:00 | EKG ---
Test Date: 2018-12-04 Test Time: 13:50:19 Mold Capper Helper: CLAUDIA MEASUREMENT RESULTS: Intervals: Rate: 111 HI: 132 QRSD: 72 QT: 312 QTc: 424 [place]: P: 87 HI: 132 QRS: 76 T: 80 INTERPRETIVE STATEMENTS: Sinus tachycardia Biatrial enlargement Indeterminate axis Pulmonary disease pattern Abnormal ECG Compared to ECG 11/24/2018 10:08:57 Indeterminate axis now present Sinus rhythm no longer present Electronically Signed On 12-04-18 15:00:19 CDT by Hiren Jeff
[2018-12-04] MEDS ORDERED: HEPARIN/D5W 25,000 UNIT/500 ML BAG IV ONE (15:36)
--- NOTE | 2018-12-04 16:10 | ER ---
Nurse's Notes [facility] Name: Noé Garcia Age: 58 yrs Sex: Male : 1960 Arrival Date: 12/04/2018 Time: 13:37 Bed 19 Private MD: Diagnosis: Portal vein thrombosis;Dehydration;Hypotension;Liver cell carcinoma-mass Presentation: 12/04 13:45 Presenting complaint: Patient states: SOB and epigastric/chest pain. Was here on the la1 second and has similar symptoms. Transition of care: patient was not received from another setting of care. Onset of symptoms was December 04, 2018. Risk Assessment: Do you want to hurt yourself or someone else? Patient reports no desire to harm self or others. Initial Sepsis Screen: Does the patient meet any 2 criteria? No. Patient's initial sepsis screen is negative. Does the patient have a suspected source of infection? No. Patient's initial sepsis screen is negative. Care prior to arrival: None. 13:45 Method Of Arrival: Wheelchair la1 13:45 Acuity: BINH 2 la1 Historical: - Allergies: 13:44 No Known Allergies; la1 - Home Meds: 15:15 simvastatin 40 mg Oral tab 1 tab once daily [Active]; lisinopril-hydrochlorothiazide tw2 20-25 mg oral tab 1 tab once daily [Active]; tramadol 50 mg Oral tab 1 tab every 4 hours [Active]; amlodipine 5 mg tab 1 tab once daily [Active]; cilostazol 100 mg oral tab 1 tab 2 times per day [Active]; clopidogrel 75 mg oral tab 1 tab once daily (Last Dose: 09/02/2018 08:00) [Active]; - PMHx: 13:44 Hypertension; Cirrhosis; la1 - Immunization history:: Adult Immunizations up to date. - Social history:: Smoking status: Patient/guardian denies using tobacco. - Ebola Screening: : No symptoms or risks identified at this time. Screenin:58 Abuse screen: Denies threats or abuse. Nutritional screening: No deficits noted. tw2 Tuberculosis screening: No symptoms or risk factors identified. Fall Risk Secondary diagnosis (15 points) impaired mobility. Assessment: 13:58 Pain: Pain does not radiate. Pain began 2-3 days ago. Cardiovascular: Reports chest tw2 pain. 14:19 General: Appears in no apparent distress. slender, Behavior is calm, cooperative, tw2 appropriate for age. Pain: Complains of pain in chest. Neuro: Level of Consciousness is awake, alert, obeys commands, Oriented to person, place, time, situation. Cardiovascular: Heart tones S1 S2 Capillary refill < 3 seconds Patient's skin is warm and dry. Respiratory: Reports shortness of breath Airway is patent Respiratory effort is even, unlabored, Breath sounds are clear bilaterally. GI: Abdomen is flat, Bowel sounds present X 4 quads. Reports nausea. : No signs and/or symptoms were reported regarding the genitourinary system. EENT: No signs and/or symptoms were reported regarding the EENT system. Derm: Skin is dry. Musculoskeletal: Range of motion: intact in all extremities. 14:56 Reassessment: Patient appears in no apparent distress at this time. No changes from tw2 previously documented assessment. Patient and/or family updated on plan of care and expected duration. Pain level reassessed. Patient is alert, oriented x 3, equal unlabored respirations, skin warm/dry/pink. 15:50 Reassessment: Patient appears in no apparent distress at this time. No changes from tw2 previously documented assessment. Patient and/or family updated on plan of care and expected duration. Pain level reassessed. Patient is alert, oriented x 3, equal unlabored respirations, skin warm/dry/pink. 16:49 Reassessment: Patient appears in no apparent distress at this time. No changes from tw2 previously documented assessment. Patient and/or family updated on plan of care and expected duration. Pain level reassessed. Patient is alert, oriented x 3, equal unlabored respirations, skin warm/dry/pink. 17:55 Reassessment: Patient appears in no apparent distress at this time. No changes from tw2 previously documented assessment. Patient and/or family updated on plan of care and expected duration. Pain level reassessed. Patient is alert, oriented x 3, equal unlabored respirations, skin warm/dry/pink. Patient denies pain at this time. 18:09 Reassessment: pt and family updated as to the time frame for EMS arrival for transport tw to [place], they are visiting with pt at this time and are understandable for the transport delay. 18:18 Reassessment: Patient appears in no apparent distress at this time. No changes from tw2 previously documented assessment. Patient and/or family updated on plan of care and expected duration. Pain level reassessed. Patient is alert, oriented x 3, equal unlabored respirations, skin warm/dry/pink. 18:54 Reassessment: Patient appears in no apparent distress at this time. No changes from tw2 previously documented assessment. Patient and/or family updated on plan of care and expected duration. Pain level reassessed. Patient is alert, oriented x 3, equal unlabored respirations, skin warm/dry/pink. Vital Signs: 13:45 BP 84 / 68; Pulse 108; Resp 16; Temp 98.8; Pulse Ox 98% on R/A; Weight 58.97 kg; Height la1 5 ft. 7 in. (170.18 cm); 14:05 BP 103 / 77; Pulse 101; Resp 17; Pulse Ox 99% on R/A; tw2 14:57 BP 126 / 74; Pulse 95; Resp 17; Pulse Ox 100% on R/A; tw2 15:49 BP 96 / 83; Pulse 99; Resp 13; Pulse Ox 99% on R/A; tw2 16:49 BP 114 / 79; Pulse 80; Resp 16; Pulse Ox 100% on R/A; tw2 17:55 BP 119 / 72; Pulse 90; Resp 17; Pulse Ox 100% on R/A; tw2 18:18 BP 114 / 77; Pulse 90; Resp 18; Pulse Ox 100% on R/A; tw2 13:45 Body Mass Index 20.36 (58.97 kg, 170.18 cm) la1 ED Course: 13:37 Patient arrived in ED. ag5 13:45 Arm band placed on left wrist. EKG completed in triage. Results shown to MD. la1 13:46 Triage completed. la1 13:48 Raul Davila MD is Attending Physician. rn 13:55 Madison Canas FNP-C is [facility]. snw 13:55 EKG done, by surface water technician. reviewed by Madison CHRISTIAN. dt2 13:57 Lilia Reed, RN is Primary Nurse. tw2 13:58 Patient maintains SpO2 saturation greater than 95% on room air. tw2 13:59 Placed in gown. Bed in low position. Adult w/ patient. security monitor on. Pulse ox on. tw2 NIBP on. 14:01 Radiology exam delayed due to lab results not completed at this time. (BUN/Creatinine). vm2 14:19 CT Traumagram (Head C Spine CAP W Con) In Process Unspecified. EDMS 14:19 Lactate Sent. tw2 14:19 Procalcitonin Sent. tw2 14:19 Initial lab(s) drawn, by me, sent to lab. Inserted saline lock: 20 gauge in right ms antecubital area, using aseptic technique. Blood collected. 14:29 XRAY Chest (1 view) In Process Unspecified. EDMS 14:29 X-ray completed. Patient tolerated procedure well. Patient moved back from radiology. ml 18:53 No provider procedures requiring assistance completed. Patient transferred, IV remains tw2 in place. Administered Medications: 14:05 Drug: NS 0.9% 1000 ml Route: IV; Rate: 75 ml/hr; Site: right antecubital; tw2 17:24 Follow up: Rate change 100 ml/hr tw2 18:54 Follow up: IV Status: Infusion continued upon transfer tw2 14:05 Drug: CarafATE 1 grams Route: PO; tw2 15:20 Follow up: Response: No adverse reaction tw2 15:22 Drug: Heparin (DVT/PE Drip) 18 units/kg/hr - (HEParin 48157 units, D5W 500 ml) tw2 {Co-Signature: la1 (Carlos Irwin RN).} Route: IV; Rate: 1100 units/hr; Site: right antecubital; 18:54 Follow up: IV Status: Infusion continued upon transfer tw2 16:33 Drug: NS 0.9% 500 ml Route: IV; Rate: bolus; Site: right antecubital; tw2 17:10 Follow up: Response: No adverse reaction; IV Status: Completed infusion; IV Intake: tw2 500ml 16:36 Drug: fentaNYL (PF) 25 mcg Route: IVP; Site: right antecubital; tw2 17:00 Follow up: Response: No adverse reaction; Pain is decreased tw2 Intake: 17:10 IV: 500ml; Total: 500ml. tw2 Outcome: 16:09 ER care complete, transfer ordered by MD. lowry 18:53 Transferred by ground EMS to [facility]. tw2 18:53 Condition: stable 18:53 Discharge instructions given to patient, family, Instructed on follow up and referral plans. the need for transfer, Demonstrated understanding of instructions. 18:54 Patient left the ED. tw2 Signatures: Dispatcher [employer] EDMS Madison Canas, WORKERS COMPENSATION CLAIMS ADJUSTER-C WORKERS COMPENSATION CLAIMS ADJUSTER-Csnw Gita Abel ms, Raul Mchugh MD MD rn Attema, CRISTINA Gonzalez RN la1 Lilia Reed RN RN tw2 Bhavna Muniz [facility] Ghislaine Lyn [facility] Steven Rodriguez [facility] Carlos Irwin RN la1
--- NOTE | 2018-12-04 16:11 | EDPHYS ---
Physician Documentation [facility] Name: Noé Garcia Age: 58 yrs Sex: Male : 1960 Arrival Date: 12/04/2018 Time: 13:37 Bed 19 Private MD: ED Physician Raul Davila HPI: 12/04 14:00 This 58 yrs old Black Male presents to ER via Wheelchair with complaints of Chest Pain, snw Breathing Difficulty, Nausea. 14:00 The patient presents with abdominal pain in the epigastric area, in the upper abdomen. snw Onset: The symptoms/episode began/occurred 10 day(s) ago, and became worse and became persistent. The symptoms do not radiate. Associated signs and symptoms: Pertinent positives: anorexia, nausea, Pertinent negatives: fever. The symptoms are described as constant, crampy. Severity of pain: At its worst the pain was moderate. The patient has experienced a previous episode. 11/24/18. Historical: - Allergies: 13:44 No Known Allergies; la1 - Home Meds: 15:15 simvastatin 40 mg Oral tab 1 tab once daily [Active]; lisinopril-hydrochlorothiazide tw2 20-25 mg oral tab 1 tab once daily [Active]; tramadol 50 mg Oral tab 1 tab every 4 hours [Active]; amlodipine 5 mg tab 1 tab once daily [Active]; cilostazol 100 mg oral tab 1 tab 2 times per day [Active]; clopidogrel 75 mg oral tab 1 tab once daily (Last Dose: 09/02/2018 08:00) [Active]; - PMHx: 13:44 Hypertension; Cirrhosis; la1 - Immunization history:: Adult Immunizations up to date. - Social history:: Smoking status: Patient/guardian denies using tobacco. - Ebola Screening: : No symptoms or risks identified at this time. ROS: 13:57 Eyes: Negative for injury, pain, redness, and discharge, ENT: Negative for injury, snw pain, and discharge, Neck: Negative for injury, pain, and swelling, Cardiovascular: Negative for palpitations and edema, + chest pain Respiratory: Negative for shortness of breath, cough, wheezing, and pleuritic chest pain. 13:57 Back: Negative for injury and pain, : Negative for injury, bleeding, discharge, and swelling, MS/Extremity: Negative for injury and deformity, Skin: Negative for injury, rash, and discoloration, Neuro: Negative for headache, weakness, numbness, tingling, and seizure, Psych: Negative for depression, anxiety, suicide ideation, homicidal ideation, and hallucinations. 13:57 Constitutional: Positive for body aches, chills, fatigue, malaise, poor PO intake, weight loss. 13:57 Abdomen/GI: Positive for abdominal pain, nausea, anorexia. Exam: 13:57 Head/Face: Normocephalic, atraumatic. Eyes: Pupils equal round and reactive to light, snw extra-ocular motions intact. Lids and lashes normal. Conjunctiva and sclera are non-icteric and not injected. Cornea within normal limits. Periorbital areas with no swelling, redness, or edema. ENT: Nares patent. No nasal discharge, no septal abnormalities noted. Tympanic membranes are normal and external auditory canals are clear. Oropharynx with no redness, swelling, or masses, exudates, or evidence of obstruction, uvula midline. Mucous membranes moist. Neck: Trachea midline, no thyromegaly or masses palpated, and no cervical lymphadenopathy. Supple, full range of motion without nuchal rigidity, or vertebral point tenderness. No Meningismus. Chest/axilla: Normal chest wall appearance and motion. Nontender with no deformity. No lesions are appreciated. 13:57 Respiratory: Lungs have equal breath sounds bilaterally, clear to auscultation and percussion. No rales, rhonchi or wheezes noted. No increased work of breathing, no retractions or nasal flaring. 13:57 Back: No spinal tenderness. No costovertebral tenderness. Full range of motion. Skin: Warm, dry with normal turgor. Normal color with no rashes, no lesions, and no evidence of cellulitis. MS/ Extremity: Pulses equal, no cyanosis. Neurovascular intact. Full, normal range of motion. Neuro: Awake and alert, GCS 15, oriented to person, place, time, and situation. Cranial nerves II-XII grossly intact. Motor strength 5/5 in all extremities. Sensory grossly intact. Cerebellar exam normal. Normal gait. 13:57 Constitutional: The patient appears frail, obviously ill. 13:57 Cardiovascular: Rate: tachycardic, Rhythm: regular, Pulses: no pulse deficits are appreciated. 13:57 Abdomen/GI: Inspection: abdomen appears normal, Bowel sounds: normal, Palpation: moderate abdominal tenderness, in the right upper quadrant and left upper quadrant. Vital Signs: 13:45 BP 84 / 68; Pulse 108; Resp 16; Temp 98.8; Pulse Ox 98% on R/A; Weight 58.97 kg; Height la1 5 ft. 7 in. (170.18 cm); 14:05 BP 103 / 77; Pulse 101; Resp 17; Pulse Ox 99% on R/A; tw2 14:57 BP 126 / 74; Pulse 95; Resp 17; Pulse Ox 100% on R/A; tw2 15:49 BP 96 / 83; Pulse 99; Resp 13; Pulse Ox 99% on R/A; tw2 16:49 BP 114 / 79; Pulse 80; Resp 16; Pulse Ox 100% on R/A; tw2 17:55 BP 119 / 72; Pulse 90; Resp 17; Pulse Ox 100% on R/A; tw2 18:18 BP 114 / 77; Pulse 90; Resp 18; Pulse Ox 100% on R/A; tw2 13:45 Body Mass Index 20.36 (58.97 kg, 170.18 cm) la1 MDM: 13:48 Patient medically screened. rn 15:46 Data reviewed: vital signs, nurses notes. Data interpreted: Pulse oximetry: on room air snw is 100 %. Interpretation: normal. Counseling: I had a detailed discussion with the patient and/or guardian regarding: the historical points, exam findings, and any diagnostic results supporting the discharge/admit diagnosis, lab results, radiology results, the need to transfer to another facility, for higher level of care, [facility] does not immediately have the required specialist. Physician consultation: Dr Washburn was called at 15:48, was contacted at 15:48, regarding regarding transfer, to [facility]. Please speak with Hepatology to better serve this pt, [facility] 16:20 Physician consultation: Dr Jama was called at 16:20, was contacted at 16:20. snw 12/04 13:57 Order name: Basic Metabolic Panel; Complete Time: 14:49 snw 12/04 13:57 Order name: CBC with Diff; Complete Time: 14:34 snw 12/04 13:57 Order name: LFT's; Complete Time: 14:49 snw 12/04 13:57 Order name: Magnesium; Complete Time: 14:49 snw 12/04 13:57 Order name: NT PRO-BNP; Complete Time: 14:49 snw 12/04 13:57 Order name: PT-INR; Complete Time: 14:34 snw 12/04 13:57 Order name: Troponin (emerg Dept Use Only); Complete Time: 14:49 snw 12/04 13:57 Order name: XRAY Chest (1 view); Complete Time: 14:49 snw 12/04 13:57 Order name: Lipase; Complete Time: 14:49 snw 12/04 13:57 Order name: Blood Culture Adult (2) 12/04 14:01 Order name: Lactate; Complete Time: 15:02 snw 12/04 14:01 Order name: Procalcitonin; Complete Time: 15:26 snw 12/04 18:20 Order name: Ptt, Activated; Complete Time: 18:48 em1 12/04 13:57 Order name: EKG; Complete Time: 13:58 snw 12/04 13:57 Order name: Cardiac monitoring; Complete Time: 13:57 snw 12/04 13:57 Order name: EKG - Nurse/Tech; Complete Time: 13:57 snw 12/04 13:57 Order name: IV Saline Lock; Complete Time: 14:19 snw 12/04 13:57 Order name: Labs collected and sent; Complete Time: 14:18 snw 12/04 13:57 Order name: O2 Per Protocol; Complete Time: 13:58 snw 12/04 13:57 Order name: O2 Sat Monitoring; Complete Time: 13:58 snw 12/04 13:57 Order name: CT Traumagram (Head C Spine CAP W Con); Complete Time: 14:49 snw 12/04 16:17 Order name: Misc. Order: increase IVF to 100ml/hr; Complete Time: 16:30 snw Administered Medications: 14:05 Drug: NS 0.9% 1000 ml Route: IV; Rate: 75 ml/hr; Site: right antecubital; tw2 17:24 Follow up: Rate change 100 ml/hr tw2 18:54 Follow up: IV Status: Infusion continued upon transfer tw2 14:05 Drug: CarafATE 1 grams Route: PO; tw2 15:20 Follow up: Response: No adverse reaction tw2 15:22 Drug: Heparin (DVT/PE Drip) 18 units/kg/hr - (HEParin 76696 units, D5W 500 ml) tw2 {Co-Signature: la1 (Carlos Irwin RN).} Route: IV; Rate: 1100 units/hr; Site: right antecubital; 18:54 Follow up: IV Status: Infusion continued upon transfer tw2 16:33 Drug: NS 0.9% 500 ml Route: IV; Rate: bolus; Site: right antecubital; tw2 17:10 Follow up: Response: No adverse reaction; IV Status: Completed infusion; IV Intake: tw2 500ml 16:36 Drug: fentaNYL (PF) 25 mcg Route: IVP; Site: right antecubital; tw2 17:00 Follow up: Response: No adverse reaction; Pain is decreased tw2 Disposition: 18:57 Co-signature as Attending Physician, Raul Davila MD. rn Disposition: 12/04/18 16:09 Transfer ordered to [facility]. Diagnosis are Portal vein thrombosis, Dehydration, Hypotension, Liver cell carcinoma - mass. - Reason for transfer: Higher level of care. - Accepting physician is [facility] - Dr. Jama. - Condition is Stable. - Problem is new. - Symptoms are unchanged. Signatures: Dispatcher [employer] EDMS Madison Canas, PARKING METER MECHANIC-C PARKING METER MECHANIC-Csnw Raul Davila MD MD rn Attema, Lee, RN RN la1 Lilia Reed RN RN tw2 Carlos [email or web address] Corrections: (The following items were deleted from the chart) 16:20 16:09 12/04/2018 16:09 Transfer ordered to [facility]. Diagnosis is snw Portal vein thrombosis; Dehydration; Hypotension; Liver cell carcinoma - mass. Reason for transfer: Higher level of care. Accepting physician is [facility]. Condition is Stable. Problem is new. Symptoms are unchanged. snw 17:10 16:20 12/04/2018 16:09 Transfer ordered to [facility]. Diagnosis is snw Portal vein thrombosis; Dehydration; Hypotension; Liver cell carcinoma - mass. Reason for transfer: Higher level of care. Accepting physician is [facility] - Dr. Willingham. Condition is Stable. Problem is new. Symptoms are unchanged. snw 17:11 16:20 Physician consultation: Dr Willingham was called at 16:20, was contacted at 16:20, essence lowry 18:54 17:10 12/04/2018 16:09 Transfer ordered to [facility]. Diagnosis is tw2 Portal vein thrombosis; Dehydration; Hypotension; Liver cell carcinoma - mass. Reason for transfer: Higher level of care. Accepting physician is [facility] - Dr. Jama. Condition is Stable. Problem is new. Symptoms are unchanged. snw
[2018-12-04] MEDS ORDERED: FENTANYL CITR 100 MCG/2 ML ONE (16:47)
[2018-12-04 19:02] VITALS: TEMP 98.8
[2018-12-04 19:07] VITALS: O2SAT 100
[2018-12-04 19:09] VITALS: BP 114/77
== END 2018-12-04 18:54 | disposition short-term general hospital (02) ==
LOC: ER 13:35
DX: I81 Portal vein thrombosis (principal); E86.0 Dehydration; I95.9 Hypotension, unspecified; C22.0 Liver cell carcinoma
CPT/HCPCS: 36415; 70450; 71045; 71260; 72125; 74177; 80048; 80076; 83605; 83690; 83735; 83880; 84145; 84484; 85025; 85610; 85730; 87040; 93005; 96361; 96365; 96366; 96375; 99285; J3010; J7030

== ENCOUNTER 2018-12-14 13:26 | Emergency (ER) | payer SELFPAY ==
--- OUTSIDE RECORDS SUMMARY | 2018-12-14 13:32 | XMS REPORT | Clinical Summary ---
:1960 Author Organization [facility] Address [address] [place] [address] Care Team Providers Name Role Phone Garett Royal Primary Care Provider Michelle Coulter Unavailable Allergies No Known Allergies Medications Medication Sig Dispensed Refills Start End Date Status Date aspirin 81 MG EC tablet Take 81 mg by 0 Active mouth daily. cilostazol (PLETAL) 100 Take 100 mg by 0 Active MG tablet mouth 2 (two) times daily with breakfast and dinner. atorvastatin (LIPITOR) Take 40 mg by 0 Active 40 MG tablet mouth nightly. lisinopril 20 MG Tab 20 Take 1 tablet by 0 Active mg, hydroCHLOROthiazide mouth daily. 25 MG Tab 25 mg amLODIPine (NORVASC) 5 Take 5 mg by mouth 0 Active MG tablet daily. docusate sodium Take 1 capsule 20 capsule 0 12/22/19 Active (COLACE) 100 MG capsule (100 mg total) by 9 19 mouth 2 (two) times daily for 10 days. enoxaparin (LOVENOX) 60 Inject 0.5 mLs (50 60 Syringe 11 Active mg/0.6 mL Syrg mg total) 9 subcutaneously every 12 (twelve) hours. mupirocin (BACTROBAN) 2 Apply 1 g 30 g 0 12/26/19 Active % ointment topically 2 (two) 9 19 times daily for 14 days. senna (SENOKOT) 8.6 mg Take 2 tablets 60 tablet 0 12/11/19 Active tablet (17.2 mg total) by 9 20 mouth every night as needed for Constipation. ondansetron Take 1 tablet (4 20 tablet 0 12/22/19 Active (ZOFRAN-ODT) 4 MG mg total) by mouth 9 disintegrating tablet every 8 (eight) hours as needed for Nausea for up to 10 days. cefdinir (OMNICEF) 300 Take 1 capsule 14 capsule 0 12/19/19 Active MG capsule (300 mg total) by 9 mouth 2 (two) times daily for 7 days. atorvastatin (LIPITOR) Take 1 tablet (40 30 tablet 11 10/01/19 40 MG tablet mg total) by mouth 8 19 nightly. clopidogrel (PLAVIX) 75 Take 1 tablet (75 30 tablet 11 10/02/19 mg tablet mg total) by mouth 8 19 daily. mINOCYCLine Take 1 capsule 14 capsule 0 03/13/20 (MINOCIN,DYNACIN) 100 (100 mg total) by 8 18 MG capsule mouth every 12 (twelve) hours for 7 days. 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 12/04/2018 Arterial occlusion, lower extremity 03/02/2018 PVD (peripheral vascular disease) 09/25/2017 Hypertension Hyperlipidemia Resolved Problems Problem Noted Date Resolved Date Respiratory insufficiency 09/25/2017 12/07/2018 Encounters Date Type Specialty Care Team Description 12/10/2018 Abstract Hepatology Annika Sharma MA 12/04/2018 - Hospital Encounter Cardiology Josafat Jama Severe protein- calorie malnutrition (HCC) (Primary Dx); 12/11/2018 MD Jose Elias 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); Ran Foster Liver mass; MD Latrell Cirrhosis of liver without ascites, unspecified hepatic cirrhosis type (HCC); Hepatocellular carcinoma (HCC); PVD (peripheral vascular disease) (HCC); Essential hypertension; Hyperlipidemia, unspecified hyperlipidemia type 12/04/2018 Travel 12/04/2018 Orders Only Cardiology Josafat Jama MD 03/04/2018 Surgery Isael Rocha PERIPHERAL ANGIOS / MD Horacio AORTOGRAM 03/02/2018 - Hospital Encounter Cardiology Jersey Rodrigues Arterial occlusion , lower extremity (HCC) (Primary Dx); 03/07/2018 MD Addi Acute leg pain, right; Philippe Evans, Peripheral vascular disease (HCC); Skin ulcer of right foot, limited to breakdown of skin (HCC) Tony Valdes MD after 12/13/2017 Family History Medical History Relation Name Comments [...] Vital Sign Reading Time Taken Blood Pressure 125/73 12/11/2018 11:00 AM CDT Pulse 79 12/11/2018 11:00 AM CDT Temperature 36.9 C (98.5 F) 12/11/2018 11:00 AM CDT Respiratory Rate 18 12/11/2018 11:00 AM CDT Oxygen Saturation 100% 12/11/2018 11:00 AM CDT Inhaled Oxygen Concentration - - Weight 53.1 kg (117 lb) 12/10/2018 8:00 AM CDT Height 170.2 cm (5' 7") 12/04/2018 8:35 PM CDT Body Mass Index 18.32 12/10/2018 8:00 AM CDT Plan of Treatment Not on file Implants Implanted Type Area [employer] Stitcher Device Identifier Shelf Model / Expiration Serial / Lot Date Grft Eptfe-Heparin Rng [id number] - [id number] Graft/P Right: WL GORE & 05/12/2021 [id number] / Implanted: Qty: 1 on 09/25/2017 by Javi Urban MD [facility] Leg ASSC:MED PRDT [id number] / Synergy Stents- Left: [place] [id number] 12/24/2019 [id number] / Implanted: Qty: 1 on 03/04/2018 by Isael Rocha MD [employer] / y [id number] Stents- [employer] [id number] 09/19/2019 [id number] / Implanted: Qty: 1 on 03/04/2018 by Isael Rocha MD Periphe / ral [id number] [employer] Hemashield Gold Knitted Microvel Double Velour Vascular Graft 7mm X 30cm Right: [employer] 02/22/2022 [id number] / Implanted: Qty: 1 on 09/25/2017 by Javi Urban MD Leg [id number] / Procedures Procedure Name Priority Date/Time Associated Comments Diagnosis CBC W/PLT COUNT & AUTO Routine 12/11/2018 4:39 Results for this DIFFERENTIAL AM CDT procedure are in the results section. CBC W/PLT COUNT & AUTO Routine 12/11/2018 4:39 Results for this DIFFERENTIAL AM CDT procedure are in the results section. BASIC METABOLIC PANEL Routine 12/11/2018 4:39 Results for this (7) AM CDT procedure are in the results section. SPUTUM CULTURE + GRAM Routine 12/11/2018 12:30 Results for this STAIN AM CDT procedure are in the results section. URINALYSIS W/ REFLEX Routine 12/10/2018 8:27 Results for this URINE CULTURE PM CDT procedure are in the results section. URINE CULTURE Routine 12/10/2018 8:27 Results for this PM CDT procedure are in the results section. RESPIRATORY PANEL [facility] Routine 12/10/2018 3:54 Results for this PM CDT procedure are in the results section. BLOOD CULTURE Routine 12/10/2018 3:54 PM CDT BLOOD CULTURE Routine 12/10/2018 3:43 PM CDT XR CHEST 1 VIEW Routine 12/10/2018 12:45 Results for this PORTABLE/BEDSIDE PM CDT procedure are in the results section. CBC W/PLT COUNT & AUTO Routine 12/10/2018 4:49 Results for this DIFFERENTIAL AM CDT procedure are in the results section. CBC W/PLT COUNT & AUTO Routine 12/10/2018 4:49 Results for this DIFFERENTIAL AM CDT procedure are in the results section. BASIC METABOLIC PANEL Routine 12/10/2018 4:49 Results for this (7) AM CDT procedure are in the results section. CBC W/PLT COUNT & AUTO Routine 12/09/2018 5:17 Results for this DIFFERENTIAL AM CDT procedure are in the results section. CBC W/PLT COUNT & AUTO Routine 12/09/2018 5:17 Results for this DIFFERENTIAL AM CDT procedure are in the results section. BASIC METABOLIC PANEL Routine 12/09/2018 5:17 Results for this (7) AM CDT procedure are in the results section. CBC W/PLT COUNT & AUTO Routine 12/08/2018 5:23 Results for this DIFFERENTIAL AM CDT procedure are in the results section. PT/APTT Routine 12/08/2018 5:23 Results for this AM CDT procedure are in the results section. HEPATIC FUNCTION PANEL Routine 12/08/2018 5:23 Results for this AM CDT procedure are in the results section. CBC W/PLT COUNT & AUTO Routine 12/08/2018 5:23 Results for this DIFFERENTIAL AM CDT procedure are in the results section. BASIC METABOLIC PANEL Routine 12/08/2018 5:23 Results for this (7) AM CDT procedure are in the results section. CT CHEST WITH IV Routine 12/07/2018 9:47 Results for this CONTRAST PM CDT procedure are in the results section. CBC W/PLT COUNT & AUTO Routine 12/07/2018 4:54 Results for this DIFFERENTIAL AM CDT procedure are in the results section. PT/APTT Routine 12/07/2018 4:54 Results for this AM CDT procedure are in the results section. HEPATIC FUNCTION PANEL Routine 12/07/2018 4:54 Results for this AM CDT procedure are in the results section. CBC W/PLT COUNT & AUTO Routine 12/07/2018 4:54 Results for this DIFFERENTIAL AM CDT procedure are in the results section. BASIC METABOLIC PANEL Routine 12/07/2018 4:54 Results for this (7) AM CDT procedure are in the results section. MR ABDOMEN WITH/WITHOUT Routine 12/06/2018 8:48 Results for this IV CONTRAST AM CDT procedure are in the results section. CARBOHYDRATE ANTIGEN Routine 12/06/2018 8:22 Results for this 19-9 (CA 19-9) AM CDT procedure are in the results section. CBC W/PLT COUNT & AUTO Routine 12/06/2018 5:42 Results for this DIFFERENTIAL AM CDT procedure are in the results section. CARCINOEMBRYONIC ANTIGEN Routine 12/06/2018 5:42 Results for this (CEA) AM CDT procedure are in the results section. PT/APTT Routine 12/06/2018 5:42 Results for this AM CDT procedure are in the results section. HEPATIC FUNCTION PANEL Routine 12/06/2018 5:42 Results for this AM CDT procedure are in the results section. CBC W/PLT COUNT & AUTO Routine 12/06/2018 5:42 Results for this DIFFERENTIAL AM CDT procedure are in the results section. BASIC METABOLIC PANEL Routine 12/06/2018 5:42 Results for this (7) AM CDT procedure are in the results section. HEPATITIS C PCR, Routine 12/05/2018 11:27 Results for this QUANTITATIVE AM CDT procedure are in the results section. CBC W/PLT COUNT & AUTO Routine 12/05/2018 5:19 Results for this DIFFERENTIAL AM CDT procedure are in the results section. HEPATITIS PANEL, ACUTE Routine 12/05/2018 5:19 Results for this AM CDT procedure are in the results section. MAGNESIUM Routine 12/05/2018 5:19 Results for this AM CDT procedure are in the results section. PT/APTT Routine 12/05/2018 5:19 Results for this AM CDT procedure are in the results section. COMPREHENSIVE METABOLIC Routine 12/05/2018 5:19 Results for this PANEL AM CDT procedure are in the results section. CBC W/PLT COUNT & AUTO Routine 12/05/2018 5:19 Results for this DIFFERENTIAL AM CDT procedure are in the results section. ALPHA FETOPROTEIN (AFP), Routine 12/04/2018 9:32 Results for this TUMOR MARKER PM CDT procedure are in the results section. RHYTHM STRIP - SCAN 09/08/2018 12:36 PM CDT RHYTHM STRIP - SCAN 08/24/2018 11:30 AM CDT CARDIAC CATH REPORT - 03/10/2018 12:01 SCAN PM CDT RHYTHM STRIP - SCAN 03/10/2018 12:01 PM CDT CBC W/PLT COUNT & AUTO Routine 03/07/2018 4:06 Results for this DIFFERENTIAL AM CDT procedure are in the results section. CBC W/PLT COUNT & AUTO Routine 03/07/2018 4:06 Results for this DIFFERENTIAL AM CDT procedure are in the [...] section. CBC W/PLT COUNT & AUTO Routine 03/06/2018 4:26 Results for this DIFFERENTIAL AM CDT procedure are in the results section. APTT Routine 03/06/2018 4:26 Results for this AM CDT procedure are in the results section. CBC W/PLT COUNT & AUTO Routine 03/06/2018 4:26 Results for this DIFFERENTIAL AM CDT procedure are in the [...] section. CBC W/PLT COUNT & AUTO Routine 03/05/2018 5:17 Results for this DIFFERENTIAL AM CDT procedure are in the results section. CBC W/PLT COUNT & AUTO Routine 03/05/2018 5:17 Results for this DIFFERENTIAL AM CDT procedure are in the [...] unspecified vessel or lesion type, unspecified whether [place] or transplanted heart (HCC) Case Notes (3) [...] (7) STAT 03/02/2018 6:07 PM CDT after 12/13/2017 Results CBC with platelet count + automated diff (12/11/2018 4:39 AM CDT)Only the most recent of13 resultswithin the time period is included. WBC 11.9 (H) 3.5 - 10.5 K/L [facility] RBC 3.59 (L) 4.63 - 6.08 M/L [facility] Hemoglobin 10.4 (L) 13.7 - 17.5 GM/DL [facility] Hematocrit 31.4 (L) 40.1 - 51.0 % [facility] MCV 87.5 79.0 - 92.2 fL [facility] MCH 29.0 25.7 - 32.2 pg [facility] MCHC 33.1 32.3 - 36.5 GM/DL [facility] RDW 14.7 (H) 11.6 - 14.4 % [facility] Platelets 416 150 - 450 K/CU MM [facility] MPV 10.1 9.4 - 12.4 fL [facility] nRBC 0 0 - 0 /100 WBC [facility] % Neutros 67 % [facility] % Lymphs 20 % [facility] % Monos 11 % [facility] % Eos 2 % [facility] % Baso 0 % [facility] # Neutros 7.97 (H) 1.78 - 5.38 K/L [facility] # Lymphs 2.41 1.32 - 3.57 K/L [facility] # Monos 1.26 (H) 0.30 - 0.82 K/L [facility] # Eos 0.20 0.04 - 0.54 K/L [facility] # Baso 0.02 0.01 - 0.08 K/L [facility] Immature Granulocytes-Relative 1 0 - 1 % [facility] Specimen Blood Performing Organization Address City/[facility]/Zipcode Phone Number [address] [address] CENTER Basic metabolic panel (12/11/2018 4:39 AM CDT)Only the most recent of12 resultswithin the time period is included. Sodium 138 136 - 145 meq/L [facility] Potassium 3.7 3.5 - 5.1 meq/L [facility] Chloride 106 98 - 107 meq/L [facility] CO2 22 22 - 29 meq/L [facility] BUN 6 (L) 7 - 21 mg/dL [facility] Creatinine 0.71 0.57 - 1.25 mg/dL [facility] Glucose 91 70 - 105 mg/dL [facility] Calcium 9.0 8.4 - 10.2 mg/dL [facility] EGFR 138Comment: ESTIMATED GFR IS mL/min/1.73 sq m [facility] NOT ACCURATE [facility] CLEARANCE IN PREDICTING GLOMERULAR FILTRATION RATE. ESTIMATED GFR IS NOT APPLICABLE FOR DIALYSIS PATIENTS. Specimen Blood Performing Organization Address City/State/Zipcode Phone Number [address] [phone] [place] Sputum Culture + Gram Stain (12/11/2018 12:30 AM CDT) Result 4+ Normal respiratory yael [facility] Gram Stain Result 2+ White blood cells seen [facility] Gram Stain Result 10-15 epithelial cells [facility] Gram Stain Result 3+ gram positive rods [facility] Gram Stain Result 3+ gram positive cocci in [facility] chains, pairs and clusters [facility] Specimen Sputum - Expectorated Performing Organization Address City/State/Zipcode Phone Number [address] [address] [place] Urinalysis w/Microscopic + Reflex to Culture (12/10/2018 8:27 PM CDT) Color, UA Yellow [facility] Clarity, UA Clear [facility] Specific [place], UA 1.009 1.001 - 1.035 [facility] pH, UA 7.0 5.0 - 8.0 [facility] Protein, UA Negative Negative [facility] Glucose, UA Negative Negative [facility] Ketones, UA Negative Negative [facility] Bilirubin, UA Negative Negative [facility] Blood, UA Negative Negative [facility] Nitrite, UA Negative Negative [facility] Leukocytes, UA Large (A) Negative [facility] Urobilinogen, UA 8.0 (H) 0.2 - 1.0 mg/dL [facility] RBC, UA 1 /HPF [facility] WBC, UA 18 /HPF [facility] Squam Epithel, UA <1 /HPF [facility] Specimen Source [facility] Specimen Urine Performing Organization Address City/State/Zipcode Phone Number [facility] [address] [place], [place] [address] [phone] [place] Urine culture (12/10/2018 8:27 PM CDT) Result No growth [facility] Specimen Urine Performing Organization Address City/[facility]/Zipcode Phone Number [facility] [address] [place] [address] [place] Respiratory Panel [facility] (12/10/2018 3:54 PM CDT) Human Metapneumovirus Not detected Not detected, [facility] Rhinovirus Not detected Not detected, [facility] Influenza A Not detected Not detected, [facility] INFLUENZA A (NO SUBTYPE) Not detected, [facility] Influenza A subtype H1 Not detected, [facility] Influenza A Subtype H3 Not detected, [facility] Influenza A Subtype H1-2009 Not detected, [facility] Influenza B Not detected Not detected, [facility] Respiratory Syncytial Virus Not detected Not detected, [facility] Parainfluenza Virus 1 Not detected Not detected, [facility] Parainfluenza Virus 2 Not detected Not detected, [facility] Parainfluenza virus 3 Not detected Not detected, [facility] Parainfluenza Virus 4 Not detected Not detected, [facility] Adenovirus Not detected Not detected, [facility] Coronavirus 229E Not detected Not detected, [facility] Coronavirus HKU1 Not detected Not detected, [facility] Coronavirus NL63 Not detected Not detected, [facility] Coronavirus OC43 Not detected Not detected, [facility] Bordetella Pertussis Not detected Not detected, [facility] Chlamydophila Pneumoniae Not detected Not detected, [facility] Mycoplasma Pneumoniae Not detected Not detected, [facility] Specimen Nasopharyngeal Narrative Performed At Other viruses and bacteria not targeted by [facility] this PCR panel cannot be excluded; therefore clinical correlation and follow up of serology, culture results, and other molecular studies is required. The results are not intended to be used as the sole means for clinical diagnosis or patient management decisions. This sample was tested at the [facility] using the HBCS FilmArray Respiratory Panel. It is FDA cleared and has been verified and approved by the [facility] for clinical use on nasopharyngeal swab specimens. The performance of the FilmArray RP has not been established in individuals who received influenza vaccine.Recent administration of a nasal influenza vaccine may cause false positive results for Influenza A and/or Influenza B. Performing Organization Address City/State/Zipcode Phone Number [facility] [address] [place] [address] CENTER XR chest 1 view portable / bedside (12/10/2018 12:45 PM CDT) Specimen Narrative Performed At FINAL REPORT GE RIS TECHNIQUE: Frontal chest radiograph dated 12/10/2018. CLINICAL HISTORY: Fever COMPARISON STUDY: Chest radiograph dated 09/25/2017 IMPRESSION: Lungs are clear. No pleural effusion or pneumothorax. Cardiomediastinal silhouette is normal in size. No pulmonary edema. No fracture. Signed: Shantanu Ryan MD Report Verified Date/Time:12/10/2018 13:42:21 Reading Location: [facility] Reading Room Procedure Note Interface, External Ris In - 12/10/2018 1:44 PM CDT FINAL REPORT TECHNIQUE: Frontal chest radiograph dated 12/10/2018. CLINICAL HISTORY: Fever COMPARISON STUDY: Chest radiograph dated 09/25/2017 IMPRESSION: Lungs are clear. No pleural effusion or pneumothorax. Cardiomediastinal silhouette is normal in size. No pulmonary edema. No fracture. Signed: Shantanu Ryan MD Report Verified Date/Time: 12/10/2018 13:42:21 Reading Location: [facility] Reading Room Performing Organization Address [facility] Phone Number GE RIS PT/aPTT (12/08/2018 5:23 AM CDT)Only the most recent of4 resultswithin the time period is included. Protime 13.2 11.9 - 14.2 seconds [facility] INR 1.1 <=5.9 [facility] PTT 39.2 (H) 22.5 - 36.0 seconds [facility] Specimen Blood Narrative Performed At Effective 10/21/2018: PT Reference Range [facility] Change New: 11.9-14.2Previous: 11.7-14.7 RECOMMENDED COUMADIN/WARFARIN INR THERAPY RANGES STANDARD DOSE: 2.0-3.0Includes: PROPHYLAXIS for venous thrombosis, systemic embolization; TREATMENT for venous thrombosis and/or pulmonary embolus. HIGH RISK: Target INR is 2.5-3.5 for patients wiht mechanical heart valves. Performing Organization Address [facility] Phone Number [address] [address] CENTER Hepatic function panel (12/08/2018 5:23 AM CDT)Only the most recent of3 resultswithin the time period is included. Protein, Total 6.7 6.0 - 8.3 gm/dL [facility] Albumin 3.6 3.5 - 5.0 g/dL [facility] Total Bilirubin 0.7 0.2 - 1.2 mg/dL [facility] Bilirubin, Direct 0.6 (H) 0.1 - 0.5 mg/dL [facility] Alkaline Phosphatase 267 (H) 40 - 150 U/L [facility] AST 595 (H) 5 - 34 U/L [facility] ALT 658 (H) 6 - 55 U/L [facility] Specimen Blood Performing Organization Address City/State/Zipcode Phone Number [facility] [address] [place] [address] [phone] chest with IV contrast (12/07/2018 9:47 PM CDT) Specimen Narrative Performed At FINAL REPORT [employer] EXAMINATION: Chest CT with IV contrast. CLINICAL HISTORY: Liver malignancy. Staging. COMPARISON EXAM: Abdominal MRI 12/06/2018 TECHNIQUE: Following the administration of IV contrast, axial tomographic images were acquired through the thorax. The exam was performed according to our departmental dose optimization program which includes automated exposure control, adjustment of the mA and/or kV according to patient's size and/or use of iterative reconstructive technique. FINDINGS: The thoracic aorta is normal in course and caliber. Calcific atherosclerotic changes are noted involving the aorta, great vessels arising off the aorta and the coronary arteries. The heart size is normal. No evidence of pericardial effusion. The esophagus is decompressed. No evidence of pathologically enlarged mediastinal or axillary lymph nodes. Lung volumes are relatively large with apical radiolucency which may reflect early architectural distortion related to emphysema. Trachea and central airways are also mildly dilated which again may reflect obstructive lung disease. No evidence of a discrete endobronchial lesion or significant airway endoluminal debris. No definite evidence of a discrete solid pulmonary nodule, pneumonia, pleural effusion, pneumothorax or pneumomediastinum. Limited images of the upper abdomen redemonstrate multiple hepatic lesions as well as thrombosis of the left intrahepatic branches of the portal vein. A small 4 mm sclerotic focus is noted in the T12 vertebral body. Although a small osseous metastasis cannot be excluded, the morphology and density favor a small bone island. IMPRESSION: Relatively large lung volumes, apical lung radiolucency and mild dilatation of the trachea and central airways concerning for obstructive lung disease/emphysema. Correlation with patient's smoking history recommended. Calcific atherosclerosis including coronary artery involvement. No definitive evidence of thoracic metastatic disease. Please see above for details. Signed: Marlee Pool MD Report Verified Date/Time:12/08/2018 04:21:30 Reading Location: [address] Reading Room Procedure Note Interface, External Ris In - 12/08/2018 4:23 AM CDT FINAL REPORT EXAMINATION: Chest CT with IV contrast. CLINICAL HISTORY: Liver malignancy. Staging. COMPARISON EXAM: Abdominal MRI 12/06/2018 TECHNIQUE: Following the administration of IV contrast, axial tomographic images were acquired through the thorax. The exam was performed according to our departmental dose optimization program which includes automated exposure control, adjustment of the mA and/or kV according to patient's size and/or use of iterative reconstructive technique. FINDINGS: The thoracic aorta is normal in course and caliber. Calcific atherosclerotic changes are noted involving the aorta, great vessels arising off the aorta and the coronary arteries. The heart size is normal. No evidence of pericardial effusion. The esophagus is decompressed. No evidence of pathologically enlarged mediastinal or axillary lymph nodes. Lung volumes are relatively large with apical radiolucency which may reflect early architectural distortion related to emphysema. Trachea and central airways are also mildly dilated which again may reflect obstructive lung disease. No evidence of a discrete endobronchial lesion or significant airway endoluminal debris. No definite evidence of a discrete solid pulmonary nodule, pneumonia, pleural effusion, pneumothorax or pneumomediastinum. Limited images of the upper abdomen redemonstrate multiple hepatic lesions as well as thrombosis of the left intrahepatic branches of the portal vein. A small 4 mm sclerotic focus is noted in the T12 vertebral body. Although a small osseous metastasis cannot be excluded, the morphology and density favor a small bone island. IMPRESSION: Relatively large lung volumes, apical lung radiolucency and mild dilatation of the trachea and central airways concerning for obstructive lung disease/emphysema. Correlation with patient's smoking history recommended. Calcific atherosclerosis including coronary artery involvement. No definitive evidence of thoracic metastatic disease. Please see above for details. Signed: Marlee Pool MD Report Verified Date/Time: 12/08/2018 04:21:30 Reading Location: [address] Reading Room Performing Organization Address City/State/Zipcode Phone Number RIS MR abdomen without & with IV contrast (12/06/2018 8:48 AM CDT) Specimen Narrative Performed At FINAL REPORT [employer] MRI of the abdomen dated December 06, 2018 Comment: Multiplanar T1 and T2-weighted images of the abdomen, postcontrast axial and coronal T1-weighted images of the abdomen were obtained. Liver and spleen are normal in size. Heterogeneous enhancing mass is seen involving the segment 1, segment 2, segment 3, segment 4, and segment 5 of the liver. The hepatic mass measures at least to 10 x 11 cm. The splenic, and superior mesenteric veins are patent. Portal vein is not visualized. Thrombus is present. In the main and right Gallbladder is not visualized. No biliary dilatation is present. Pancreas and adrenals are unremarkable. Both kidneys are normal in size and functioning. No ascites is seen in the abdomen. The visualized small and large bowel are unremarkable. IMPRESSION: 1. Large heterogeneous appearing masses involving segment 1, segment 2, segment 3, segment 4, and the segment 5 of the liver suspicious for multifocal hepatocellular carcinoma. 2. Portal vein thrombosis. Signed: Michelle Garner MD Report Verified Date/Time:12/06/2018 10:49:29 Reading Location: [address] Body Reading Room Procedure Note Interface, External Ris In - 12/06/2018 10:51 AM CDT FINAL REPORT MRI of the abdomen dated December 06, 2018 Comment: Multiplanar T1 and T2-weighted images of the abdomen, postcontrast axial and coronal T1-weighted images of the abdomen were obtained. Liver and spleen are normal in size. Heterogeneous enhancing mass is seen involving the segment 1, segment 2, segment 3, segment 4, and segment 5 of the liver. The hepatic mass measures at least to 10 x 11 cm. The splenic, and superior mesenteric veins are patent. Portal vein is not visualized. Thrombus is present. In the main and right Gallbladder is not visualized. No biliary dilatation is present. Pancreas and adrenals are unremarkable. Both kidneys are normal in size and functioning. No ascites is seen in the abdomen. The visualized small and large bowel are unremarkable. IMPRESSION: 1. Large heterogeneous appearing masses involving segment 1, segment 2, segment 3, segment 4, and the segment 5 of the liver suspicious for multifocal hepatocellular carcinoma. 2. Portal vein thrombosis. Signed: Michelle Garner MD Report Verified Date/Time: 12/06/2018 10:49:29 Reading Location: [facility] C013Y CT Body Reading Room Performing Organization Address City/State/Zipcode Phone Number GE RIS Carbohydrate antigen 19-9 (CA 19-9) (12/06/2018 8:22 AM CDT) CA 19-9 <3 <34 U/mL [facility] [employer] Comment: This test was performed using the Siemens Chemiluminescent method. Values obtained from different assay methods cannot be used interchangeably. CA19-9 levels, regardless of value, should not be interpreted as absolute evidence of the presence or absence of disease. Specimen Blood Narrative Performed At Performing Lab [facility] [address] [place] [address] Rafa Gr MD, PhD, MARGARITA Performing Organization Address [facility] Phone Number [place] [address] INCORPORATED [address] [facility] Carcinoembryonic Antigen (CEA) (12/06/2018 5:42 AM CDT) CEA, SERUM 0.7 0.0 - 5.0 ng/mL [facility] Specimen Blood Performing Organization Address [facility] [place] [address] [phone] CENTER Hepatitis C PCR, Quantitative (12/05/2018 11:27 AM CDT) HCV PCR, Quantitative HCV RNA not detected HCV RNA not detected [facility] Specimen Blood Narrative Performed At This test uses a Real-Time Polymerase Chain [facility] Reaction (RT-PCR) methodology and was performed using DAVID Ampliprep/DAVID TaqMan HCV test kit version 2.0 ([employer]). Reportable range for this assay is 15 - 100,000,000 IU per mL (1.18 - 8.00 Log IU/mL). Performing Organization Address City/State/Zipcode Phone Number [facility] [address] [place] [address] [phone] [place] Hepatitis panel, acute (12/05/2018 5:19 AM CDT) Hep A IgM Nonreactive Nonreactive [facility] Hep B C IgM Nonreactive Nonreactive [facility] Hepatitis C Ab Reactive (A) Nonreactive [facility] hepatitis B Surface Ag Nonreactive Nonreactive [facility] Specimen Blood Performing Organization Address City/[facility]/Zipcode Phone Number [address] [address] [place] Magnesium (12/05/2018 5:19 AM CDT) Magnesium 2.1 1.6 - 2.6 mg/dL [facility] Specimen Blood Performing Organization Address City/[facility] Phone Number [address] [address] [place] Comprehensive metabolic panel (12/05/2018 5:19 AM CDT) Protein, Total 7.2 6.0 - 8.3 gm/dL [facility] Albumin 3.8 3.5 - 5.0 g/dL [facility] Alkaline Phosphatase 148 40 - 150 U/L [facility] Total Bilirubin 0.3 0.2 - 1.2 mg/dL [facility] Sodium 131 (L) 136 - 145 meq/L [facility] Potassium 4.0 3.5 - 5.1 meq/L [facility] Chloride 100 98 - 107 meq/L [facility] CO2 24 22 - 29 meq/L [facility] BUN 12 7 - 21 mg/dL [facility] Creatinine 0.91 0.57 - 1.25 mg/dL [facility] Glucose 98 70 - 105 mg/dL [facility] Calcium 8.9 8.4 - 10.2 mg/dL [facility] AST 135 (H) 5 - 34 U/L [facility] ALT 81 (H) 6 - 55 U/L [facility] EGFR 104Comment: ESTIMATED mL/min/1.73 sq m [facility] GFR IS NOT ACCURATE [facility] CREATININE CLEARANCE IN PREDICTING GLOMERULAR FILTRATION RATE. ESTIMATED GFR IS NOT APPLICABLE FOR DIALYSIS PATIENTS. Specimen Blood Performing Organization Address City/State/Zipcode Phone Number [address] [address] [phone] [place] Alpha fetoprotein (AFP), tumor marker (12/04/2018 9:32 PM CDT) Alpha-Fetoprotein >28049.0 (H) <10.0 ng/mL [facility] Specimen Blood Performing Organization Address City/[facility] Phone Number [address] [address] [place] RHYTHM STRIP - SCAN (09/08/2018 12:36 PM CDT)Only the most recent of3 resultswithin the time period is included. Narrative Performed At CARDIAC CATH REPORT - SCAN (03/10/2018 12:01 PM CDT) Narrative Performed At Blood culture (03/06/2018 11:31 AM CDT)Only the most recent of3 resultswithin the time period is included. Result No growth in 5 days [facility] Specimen Blood Performing Organization Address City/[facility]/Zipcode Phone Number [address] [address] CENTER YOSVANY's Only(Ankle/Brachial Index) (03/06/2018 10:32 AM CDT) Ejection Fraction [facility]CHO [facility]ART[facility] Specimen Impressions Performed At Right Impression [facility] 1. The posterior tibial artery had abnormal [...] At LAB - Lower Extremity Arterial Procedure [facility] CK[facility] Demographics Patient NATALIA Trejo Date of Study 03/06/2018 NORAH 57 Visit [id number] Male of 1960 Number Referring [facility] Number [id number] Physician Leader Writer Evelia ChengInterpretingJon Ramirez T Physician , VI Procedure Type of Study: [...] Study 03/06/2018 NORAH Age 57 Visit Number [id number] Gender Male Date of 1960 Number Referring Josefina Kirkland MD Room Number [id number] Physician Leader Writer Evelia LChay Ramirez T Physician , RPVI Procedure Type of Study: [...] are measured in cm Performing Organization Address City/[facility] Phone Number [facility]ART[facility] CPACS aPTT (03/06/2018 6:42 AM CDT)Only the most recent of13 resultswithin the time period is included. PTT 107.0 (H) 22.5 - 36.0 seconds [facility] Specimen Blood Performing Organization Address City/[facility]/Zipcode Phone Number [facility] [address] [place] [phone] CENTER TRANSFUSION SERVICE REPORT - SCAN (03/04/2018 6:00 PM CDT) Narrative Performed At POC ACTIVATED CLOTTING TIME (03/04/2018 3:45 PM CDT) Activated Clotting Time 269Comment: TESTED AT sec [address] [address] Specimen Blood Performing Organization Address City/State/Zipcode Phone Number [facility] [place] [phone] [place] [address] CENTER CTA AAA and Runoff (03/03/2018 7:18 PM CDT) Specimen Narrative Performed At Addendum Begins [employer] RIS REPORT STATUS:A Addendum: I reviewed the nonvascular features of this examination and concur with Dr. Restrepo's report. Signed: Juan Esparza MD Report Verified Date/Time:03/04/2018 15:50:09 Reading Location: [place] [id number] Angio Body Reading Room Addendum Ends FINAL [...] dynamic data set. In the right, the [place] right SFA is occluded. The right profunda [...] to femoral bypass graft is identified. 3.The [place] left SFA is occluded. The right SFA [...] dictated regarding the non-vascular findings by the Manufacturing Engineer Assembly Radiologist. Signed: Shawn Restrepo MD Report Verified Date/Time:03/04/2018 07:12:51 Reading Location: [place] [id number] Cardiology MRI Procedure Note Interface, External Ris In - 03/04/2018 3:52 PM CDT Addendum Begins REPORT STATUS:A Addendum: I reviewed the nonvascular features of this examination and concur with Dr. Restrepo's report. Signed: Juan Esparza MD Report Verified Date/Time: 03/04/2018 15:50:09 Reading Location: [place] [id number] Angio Body Reading Room Addendum Ends FINAL [...] dynamic data set. In the right, the [place] right SFA is occluded. The right profunda [...] femoral bypass graft is identified. 3. The [place] left SFA is occluded. The right SFA [...] dictated regarding the non-vascular findings by the Manufacturing Engineer Assembly Radiologist. Signed: Shawn Restrepo MD Report Verified Date/Time: 03/04/2018 07:12:51 Reading Location: [place] [id number] Cardiology MRI Performing Organization Address City/State/Zipcode Phone Number GE RIS Type and screen, automated (03/03/2018 2:39 PM CDT) ABO/RH AUTOMATED (BEAKER) A POSITIVE [facility] Ab Scrn NEGATIVE [facility] Specimen Blood Performing Organization Address City/[facility] Phone Number [facility] [address] [place] [address] XR foot 3 views right (03/03/2018 7:03 AM CDT) Specimen Narrative Performed At FINAL REPORT GE RIS TECHNIQUE: Frontal, lateral, and oblique radiographs of [...] MD Report Verified Date/Time:03/03/2018 08:43:54 Reading Location: [facility] Radiology Reading Room Procedure Note Interface, [...] Report Verified Date/Time: 03/03/2018 08:43:54 Reading Location: [facility] Radiology Reading Room Performing Organization Address City/State/Zipcode Phone Number [employer] Arterial doppler leg, right (03/02/2018 9:28 PM CDT) Ejection Fraction [facility] E[facility]ART[facility] CPACS Specimen Impressions Performed At Right Impression [facility] E[facility]ART[facility] CPACS [...] + + + + + + !Prox BELL RINGER ! !18.6 !! ! + + + + + + !Mid BELL RINGER ! !21.7 !! ! + + + + + + !Dist BELL RINGER ! !30.9 !! ! + + + [...] At LAB - Lower Extremity Arterial Duplex [facility]ART[facility] Demographics Patient NATALIA Trejo Date of Study 03/02/2018 NORAH 57 Visit [id number] Male of 1960 Number [facility]erring [facility] Number [id number] Physician Leader Writer Luis Carlos [facility]. Zbigniew Ramirez, Physician , [facility] Procedure Type of Study: Extremities Arteries: Lower [...] Study 03/02/2018 NORAH Age 57 Visit Number [id number] Gender Male Date of 1960 Number Referring Ravi [place] Room Number [id number] Physician Leader Writer Luis Carlos Villalta Interpreting Jon Ramirez, Physician , RP Procedure Type of Study: Extremities Arteries: Lower [...] + + + -------+ + + !Prox BELL RINGER ! !18.6 ! ! ! + + + -------+ + + !Mid BELL RINGER ! !21.7 ! ! ! + + + -------+ + + !Dist BELL RINGER ! !30.9 ! ! ! + + [...] + -------+ + + Performing Organization Address City/State/[facility] Phone Number [facility] Venous doppler leg, right (03/02/2018 8:00 PM CDT) Ejection Fraction [facility] Specimen Impressions Performed At Right Impression [facility] 1. There is no deep venous obstruction [...] PV LAB - Lower Extremities DVT Study [facility]CHO [facility]ART[facility] [place] [facility] Demographics Patient NATALIA Trejo Date of Study 03/02/2018 NORAH 57 Visit [id number] Male of 1960 Number Referring Ravi Putnam [place] Number [id number] Physician Leader Writer Marlee Gallagher RVT InterpretingJon Ramirez Physician , CITLALI [...] Study 03/02/2018 NORAH Age 57 Visit Number [id number] Gender Male Date of 1960 Number Referring Ravi Putnam Addi Room Number 1035 Physician Leader Writer Marlee Gallagher RVT Interpreting Jon Ramirez Physician , RPBERNADETTE Procedure Type of Study: Veins: Lower Extremities [...] are measured in cm Performing Organization Address City/[facility] Phone Number [facility] CPACS C-Reactive Protein (03/02/2018 6:07 PM CDT) CRP 0.04 0.00 - 0.50 mg/dL [facility] Specimen Blood Performing Organization Address City/[facility] Phone Number [address] [address] CENTER after 12/13/2017 Advance Directives For more information, please contact:[address] [phone] Code Status Date Activated Date Inactivated Comments Full Code 12/04/2018 8:56 PM 12/11/2018 8:53 PM This code status was determined by: Patient Full Code 03/03/2018 2:37 AM 03/07/2018 2:32 PM This code status was determined by: Patient Full Code 09/25/2017 5:46 PM 09/30/2017 3:19 PM This code status was determined by: Patient Full Code 09/25/2017 7:33 AM 09/25/2017 5:46 PM This code status was determined by: Patient
--- OUTSIDE RECORDS SUMMARY | 2018-12-14 13:34 | XMS REPORT ---
:1960 [facility] [address] [place] [address] Care Team Providers Name Role Phone KAREN HOUSEAiram Unavailable Unavailable CARLI WAN Unavailable Unavailable GRETA URBAN Unavailable Unavailable Problems This patient has no known problems. Allergies, Adverse Reactions, Alerts This patient has no known allergies or adverse reactions. Medications This patient has no known medications. Results Test Description Test Time Test Comments Text Results Atomic Results Result Comments SPUTUM CULTURE + GRAM STAIN 2018-12-13 13:21:00 Test Item Value Reference Range Comments CULTURE (BEAKER) (test udym=7814) 4+ Normal respiratory yael present GRAM STAIN RESULT (BEAKER) (test 2+ White blood cells seen tyvb=0471) GRAM STAIN RESULT (BEAKER) (test 10-15 epithelial cells uahe=42537) GRAM STAIN RESULT (BEAKER) (test 3+ gram positive rods tmwe=59911) GRAM STAIN RESULT (BEAKER) (test 3+ gram positive cocci in chains, pairs qlrw=[id number]) and clusters BASIC METABOLIC [id number] 07:38:00 Test Item Value Reference Range Comments SODIUM (BEAKER) (test 138 meq/L 136-145 vbkw=754) POTASSIUM (BEAKER) (test 3.7 meq/L 3.5-5.1 jrya=082) CHLORIDE (BEAKER) (test 106 meq/L 98-107 pfed=089) CO2 (BEAKER) (test 22 meq/L 22-29 wrkf=991) BLOOD UREA NITROGEN 6 mg/dL 7-21 (BEAKER) (test ytbj=362) CREATININE (BEAKER) (test 0.71 mg/dL 0.57-1.25 supd=612) GLUCOSE RANDOM (BEAKER) 91 mg/dL 70-105 (test rkkb=765) CALCIUM (BEAKER) (test 9.0 mg/dL 8.4-10.2 ichv=694) EGFR (BEAKER) (test 138 mL/min/1.73 sq m ESTIMATED GFR IS NOT iiop=7925) ACCURATE CREATININE CLEARANCE IN PREDICTING GLOMERULAR FILTRATION RATE. ESTIMATED GFR IS NOT APPLICABLE FOR DIALYSIS PATIENTS. CBC W/PLT COUNT & AUTO [id number] 05:19:00 Test Item Value Reference Range Comments WHITE BLOOD CELL COUNT (BEAKER) (test lkiq=626) 11.9 K/ L 3.5-10.5 RED BLOOD CELL COUNT (BEAKER) (test uzrm=428) 3.59 M/ L 4.63-6.08 HEMOGLOBIN (BEAKER) (test rbng=668) 10.4 GM/DL 13.7-17.5 HEMATOCRIT (BEAKER) (test jioq=689) 31.4 % 40.1-51.0 MEAN CORPUSCULAR VOLUME (BEAKER) (test dynh=940) 87.5 fL 79.0-92.2 MEAN CORPUSCULAR HEMOGLOBIN (BEAKER) (test 29.0 pg 25.7-32.2 ozbx=464) MEAN CORPUSCULAR HEMOGLOBIN CONC (BEAKER) (test 33.1 GM/DL 32.3-36.5 xsrr=870) RED CELL DISTRIBUTION WIDTH (BEAKER) (test 14.7 % 11.6-14.4 xgsw=700) PLATELET COUNT (BEAKER) (test xakq=587) 416 K/CU MM 150-450 MEAN PLATELET VOLUME (BEAKER) (test egtq=141) 10.1 fL 9.4-12.4 NUCLEATED RED BLOOD CELLS (BEAKER) (test 0 /100 WBC 0-0 zlor=539) NEUTROPHILS RELATIVE PERCENT (BEAKER) (test 67 % thyi=660) LYMPHOCYTES RELATIVE PERCENT (BEAKER) (test 20 % kwxb=659) MONOCYTES RELATIVE PERCENT (BEAKER) (test 11 % iqzh=924) EOSINOPHILS RELATIVE PERCENT (BEAKER) (test 2 % tzoc=490) BASOPHILS RELATIVE PERCENT (BEAKER) (test 0 % ttse=151) NEUTROPHILS ABSOLUTE COUNT (BEAKER) (test 7.97 K/ L 1.78-5.38 guin=002) LYMPHOCYTES ABSOLUTE COUNT (BEAKER) (test 2.41 K/ L 1.32-3.57 ujzc=370) MONOCYTES ABSOLUTE COUNT (BEAKER) (test 1.26 K/ L 0.30-0.82 wjdx=025) EOSINOPHILS ABSOLUTE COUNT (BEAKER) (test 0.20 K/ L 0.04-0.54 aijw=016) BASOPHILS ABSOLUTE COUNT (BEAKER) (test 0.02 K/ L 0.01-0.08 ajax=763) IMMATURE GRANULOCYTES-RELATIVE PERCENT (BEAKER) 1 % 0-1 (test alil=4808) URINALYSIS W/ REFLEX URINE [id number] 21:32:00 Test Item Value Reference Range Comments COLOR (BEAKER) (test nqwu=210) Yellow CLARITY (BEAKER) (test beuv=713) Clear SPECIFIC GRAVITY UA (BEAKER) (test ffls=955) 1.009 1.001-1.035 PH UA (BEAKER) (test wfau=911) 7.0 5.0-8.0 PROTEIN UA (BEAKER) (test ycin=174) Negative Negative GLUCOSE UA (BEAKER) (test nlug=784) Negative Negative KETONES UA (BEAKER) (test keij=417) Negative Negative BILIRUBIN UA (BEAKER) (test sgqg=256) Negative Negative BLOOD UA (BEAKER) (test dhxx=210) Negative Negative NITRITE UA (BEAKER) (test fjud=787) Negative Negative LEUKOCYTE ESTERASE UA (BEAKER) (test kujh=029) Large Negative UROBILINOGEN UA (BEAKER) (test mwwi=256) 8.0 mg/dL 0.2-1.0 RBC UA (BEAKER) (test igkc=650) 1 /HPF WBC UA (BEAKER) (test rnxz=926) 18 /HPF SQUAMOUS EPITHELIAL (BEAKER) (test xbly=161) < /HPF SOURCE(BEAKER) (test bqkc=4195) RESPIRATORY PANEL [id number] 20:04:00 Test Item Value Reference Range Comments HUMAN METAPNEUMOVIRUS (BEAKER) (test Not detected Not detected, Equivocal jvrk=4306) RHINOVIRUS (BEAKER) (test tcdh=6147) Not detected Not detected, Equivocal INFLUENZA A (BEAKER) (test ivdl=4211) Not detected Not detected, Equivocal INFLUENZA A (NO SUBTYPE) (test Not detected, Equivocal fptu=2057) INFLUENZA A SUBTYPE H1 (BEAKER) (test Not detected, Equivocal heih=2337) INFLUENZA A SUBTYPE H3 (BEAKER) (test Not detected, Equivocal alnn=1657) INFLUENZA A SUBTYPE H1-2009 (BEAKER) Not detected, Equivocal (test vgju=1330) INFLUENZA B (BEAKER) (test ugnk=2718) Not detected Not detected, Equivocal RESPIRATORY SYNCYTIAL VIRUS (BEAKER) Not detected Not detected, Equivocal (test nffu=9342) PARAINFLUENZA VIRUS 1 (BEAKER) (test Not detected Not detected, Equivocal wpiw=0741) PARAINFLUENZA VIRUS 2 (BEAKER) (test Not detected Not detected, Equivocal kvie=5766) PARAINFLUENZA VIRUS 3 (BEAKER) (test Not detected Not detected, Equivocal ukhh=0321) PARAINFLUENZA VIRUS 4 (BEAKER) (test Not detected Not detected, Equivocal wkxx=3144) ADENOVIRUS (BEAKER) (test adja=3720) Not detected Not detected, Equivocal CORONAVIRUS 229E (BEAKER) (test Not detected Not detected, Equivocal ocxn=0022) CORONAVIRUS HKU1 (BEAKER) (test Not detected Not detected, Equivocal tkwb=5525) CORONAVIRUS NL63 (BEAKER) (test Not detected Not detected, Equivocal pobh=5039) CORONAVIRUS OC43 (BEAKER) (test Not detected Not detected, Equivocal ithb=4505) BORDETELLA PERTUSSIS (BEAKER) (test Not detected Not detected, Equivocal bpfq=6885) CHLAMYDOPHILA PNEUMONIAE (BEAKER) (test Not detected Not detected, Equivocal othk=4777) MYCOPLASMA PNEUMONIAE (BEAKER) (test Not detected Not detected, Equivocal cofv=2196) Other viruses and bacteria not targeted by this PCR panel cannot be excluded; therefore clinical correlation and follow up of serology, culture results, and other molecular studies is required. The results are not intended to be used as the sole means for clinical diagnosis or patient management decisions. This sample was tested at the [facility] using the GeoMe Respiratory Panel. It is FDA cleared and has been verified and approved by the [facility] for clinical use on nasopharyngeal swab specimens.The performance of the FilmArrayRP has not been established in individuals who received influenza vaccine. Recent administration ofa nasal influenza vaccine may cause false positive results for Influenza A and/orInfluenza B.RAD, CHEST, 1 VIEW, NON [id number] 13:42: 00Reason for exam:->feverShould this be performed at the bedside?-> YesFINAL REPORT TECHNIQUE: Frontal chest radiograph dated 12/10/2018. CLINICAL HISTORY: Fever COMPARISON STUDY: Chest radiograph dated 09/25/2017 IMPRESSION:Lungs are clear. No pleural effusion or pneumothorax. Cardiomediastinal silhouette is normal in size. No pulmonary edema. No fracture. Signed: Shantanu Ryan MDReport Verified Date/Time: 12/10/2018 13:42:21 Reading Location: [facility] Reading Room [facility] METABOLIC [id number] 07:05:00 Test Item Value Reference Range Comments SODIUM (BEAKER) (test 135 meq/L 136-145 qfms=965) POTASSIUM (BEAKER) (test 3.7 meq/L 3.5-5.1 fqzi=325) CHLORIDE (BEAKER) (test 105 meq/L 98-107 sceo=449) CO2 (BEAKER) (test 23 meq/L 22-29 qekv=397) BLOOD UREA NITROGEN 6 mg/dL 7-21 (BEAKER) (test gxdz=508) CREATININE (BEAKER) (test 0.78 mg/dL 0.57-1.25 qaim=741) GLUCOSE RANDOM (BEAKER) 97 mg/dL 70-105 (test jefj=067) CALCIUM (BEAKER) (test 8.7 mg/dL 8.4-10.2 tvfi=996) EGFR (BEAKER) (test 124 mL/min/1.73 sq m ESTIMATED GFR IS NOT lgpv=7088) ACCURATE CREATININE CLEARANCE IN PREDICTING GLOMERULAR FILTRATION RATE. ESTIMATED GFR IS NOT APPLICABLE FOR DIALYSIS PATIENTS. CBC W/PLT COUNT & AUTO [id number] 05:42:00 Test Item Value Reference Range Comments WHITE BLOOD CELL COUNT (BEAKER) (test umbo=485) 13.0 K/ L 3.5-10.5 RED BLOOD CELL COUNT (BEAKER) (test fzol=803) 3.71 M/ L 4.63-6.08 HEMOGLOBIN (BEAKER) (test xbew=894) 10.9 GM/DL 13.7-17.5 HEMATOCRIT (BEAKER) (test skhx=681) 32.1 % 40.1-51.0 MEAN CORPUSCULAR VOLUME (BEAKER) (test fnhl=808) 86.5 fL 79.0-92.2 MEAN CORPUSCULAR HEMOGLOBIN (BEAKER) (test 29.4 pg 25.7-32.2 itgm=454) MEAN CORPUSCULAR HEMOGLOBIN CONC (BEAKER) (test 34.0 GM/DL 32.3-36.5 vdqb=512) RED CELL DISTRIBUTION WIDTH (BEAKER) (test 14.4 % 11.6-14.4 kmlq=102) PLATELET COUNT (BEAKER) (test dehl=786) 407 K/CU MM 150-450 MEAN PLATELET VOLUME (BEAKER) (test veby=119) 9.8 fL 9.4-12.4 NUCLEATED RED BLOOD CELLS (BEAKER) (test 0 /100 WBC 0-0 xsop=570) NEUTROPHILS RELATIVE PERCENT (BEAKER) (test 72 % hhjg=476) LYMPHOCYTES RELATIVE PERCENT (BEAKER) (test 17 % ftgm=814) MONOCYTES RELATIVE PERCENT (BEAKER) (test 9 % fayo=819) EOSINOPHILS RELATIVE PERCENT (BEAKER) (test 1 % ibme=215) BASOPHILS RELATIVE PERCENT (BEAKER) (test 0 % khul=092) NEUTROPHILS ABSOLUTE COUNT (BEAKER) (test 9.35 K/ L 1.78-5.38 opjy=143) LYMPHOCYTES ABSOLUTE COUNT (BEAKER) (test 2.14 K/ L 1.32-3.57 uvqh=335) MONOCYTES ABSOLUTE COUNT (BEAKER) (test 1.22 K/ L 0.30-0.82 mqre=565) EOSINOPHILS ABSOLUTE COUNT (BEAKER) (test 0.15 K/ L 0.04-0.54 nvrw=850) BASOPHILS ABSOLUTE COUNT (BEAKER) (test 0.04 K/ L 0.01-0.08 qfpg=235) IMMATURE GRANULOCYTES-RELATIVE PERCENT (BEAKER) 1 % 0-1 (test iton=3724) BASIC METABOLIC [id number] 07:42:00 Test Item Value Reference Range Comments SODIUM (BEAKER) (test 135 meq/L 136-145 vffh=390) POTASSIUM (BEAKER) (test 3.9 meq/L 3.5-5.1 bvln=151) CHLORIDE (BEAKER) (test 106 meq/L 98-107 dalz=837) CO2 (BEAKER) (test 21 meq/L 22-29 wsms=270) BLOOD UREA NITROGEN 7 mg/dL 7-21 (BEAKER) (test sdbr=359) CREATININE (BEAKER) (test 0.79 mg/dL 0.57-1.25 almk=412) GLUCOSE RANDOM (BEAKER) 87 mg/dL 70-105 (test pkmh=992) CALCIUM (BEAKER) (test 8.8 mg/dL 8.4-10.2 hfru=686) EGFR (BEAKER) (test 122 mL/min/1.73 sq m ESTIMATED GFR IS NOT wmol=3566) ACCURATE CREATININE CLEARANCE IN PREDICTING GLOMERULAR FILTRATION RATE. ESTIMATED GFR IS NOT APPLICABLE FOR DIALYSIS PATIENTS. CBC W/PLT COUNT & AUTO [id number] 06:35:00 Test Item Value Reference Range Comments WHITE BLOOD CELL COUNT (BEAKER) (test pkcn=926) 11.7 K/ L 3.5-10.5 RED BLOOD CELL COUNT (BEAKER) (test zrup=135) 3.73 M/ L 4.63-6.08 HEMOGLOBIN (BEAKER) (test zgfw=788) 10.9 GM/DL 13.7-17.5 HEMATOCRIT (BEAKER) (test gxwg=800) 32.5 % 40.1-51.0 MEAN CORPUSCULAR VOLUME (BEAKER) (test tltn=742) 87.1 fL 79.0-92.2 MEAN CORPUSCULAR HEMOGLOBIN (BEAKER) (test 29.2 pg 25.7-32.2 kjty=149) MEAN CORPUSCULAR HEMOGLOBIN CONC (BEAKER) (test 33.5 GM/DL 32.3-36.5 njtu=702) RED CELL DISTRIBUTION WIDTH (BEAKER) (test 14.3 % 11.6-14.4 gzlb=025) PLATELET COUNT (BEAKER) (test utdt=044) 427 K/CU MM 150-450 MEAN PLATELET VOLUME (BEAKER) (test qqtr=412) 10.1 fL 9.4-12.4 NUCLEATED RED BLOOD CELLS (BEAKER) (test 0 /100 WBC 0-0 qbiz=670) NEUTROPHILS RELATIVE PERCENT (BEAKER) (test 70 % okwx=969) LYMPHOCYTES RELATIVE PERCENT (BEAKER) (test 19 % tphe=959) MONOCYTES RELATIVE PERCENT (BEAKER) (test 9 % ycdo=345) EOSINOPHILS RELATIVE PERCENT (BEAKER) (test 2 % ubzg=912) BASOPHILS RELATIVE PERCENT (BEAKER) (test 0 % upar=688) NEUTROPHILS ABSOLUTE COUNT (BEAKER) (test 8.19 K/ L 1.78-5.38 munh=097) LYMPHOCYTES ABSOLUTE COUNT (BEAKER) (test 2.25 K/ L 1.32-3.57 kfvu=888) MONOCYTES ABSOLUTE COUNT (BEAKER) (test 1.00 K/ L 0.30-0.82 xwqz=425) EOSINOPHILS ABSOLUTE COUNT (BEAKER) (test 0.19 K/ L 0.04-0.54 wtkq=358) BASOPHILS ABSOLUTE COUNT (BEAKER) (test 0.03 K/ L 0.01-0.08 ovtz=787) IMMATURE GRANULOCYTES-RELATIVE PERCENT (BEAKER) 1 % 0-1 (test mjlx=4603) HEPATIC FUNCTION [id number] 06:55:00 Test Item Value Reference Range Comments TOTAL PROTEIN (BEAKER) (test mzpk=002) 6.7 gm/dL 6.0-8.3 ALBUMIN (BEAKER) (test jtzg=3339) 3.6 g/dL 3.5-5.0 BILIRUBIN TOTAL (BEAKER) (test pmdl=195) 0.7 mg/dL 0.2-1.2 BILIRUBIN DIRECT (BEAKER) (test egtx=811) 0.6 mg/dL 0.1-0.5 ALKALINE PHOSPHATASE (BEAKER) (test eayo=257) 267 U/L 40-150 AST (SGOT) (BEAKER) (test uufc=103) 595 U/L 5-34 ALT (SGPT) (BEAKER) (test cmnk=249) 658 U/L 6-55 BASIC METABOLIC [id number] 06:55:00 Test Item Value Reference Range Comments SODIUM (BEAKER) (test 136 meq/L 136-145 zohv=148) POTASSIUM (BEAKER) (test 4.0 meq/L 3.5-5.1 kchd=762) CHLORIDE (BEAKER) (test 107 meq/L 98-107 ajyb=320) CO2 (BEAKER) (test 21 meq/L 22-29 zwkw=450) BLOOD UREA NITROGEN 8 mg/dL 7-21 (BEAKER) (test fnht=093) CREATININE (BEAKER) (test 0.75 mg/dL 0.57-1.25 cefj=374) GLUCOSE RANDOM (BEAKER) 95 mg/dL 70-105 (test gpdh=613) CALCIUM (BEAKER) (test 9.1 mg/dL 8.4-10.2 vsfz=174) EGFR (BEAKER) (test 130 mL/min/1.73 sq m ESTIMATED GFR IS NOT tuba=4215) ACCURATE CREATININE CLEARANCE IN PREDICTING GLOMERULAR FILTRATION RATE. ESTIMATED GFR IS NOT APPLICABLE FOR DIALYSIS PATIENTS. [id number] 06:07:00 Test Item Value Reference Range Comments PROTIME (BEAKER) (test vmsy=989) 13.2 seconds 11.9-14.2 INR (BEAKER) (test cuvt=538) 1.1 <=5.9 PARTIAL THROMBOPLASTIN TIME (BEAKER) (test 39.2 seconds 22.5-36.0 alwq=676) Effective 10/21/2018: PT Reference Range ChangeNew: 11.9-14.2 Previous: 11.7- 14.7RECOMMENDED COUMADIN/WARFARIN INR THERAPY RANGESSTANDARD DOSE: 2.0-3.0 Includes: PROPHYLAXIS for venous thrombosis, systemic embolization; TREATMENT for venous thrombosis and/or pulmonary embolus.HIGH RISK: Target INR is2.5-3.5 for patients wiht mechanical heart valves.CBC W/PLT COUNT & AUTO [id number] 05:58:00 Test Item Value Reference Range Comments WHITE BLOOD CELL COUNT (BEAKER) (test dtyr=475) 9.6 K/ L 3.5-10.5 RED BLOOD CELL COUNT (BEAKER) (test ikvg=345) 3.86 M/ L 4.63-6.08 HEMOGLOBIN (BEAKER) (test ailv=210) 11.1 GM/DL 13.7-17.5 HEMATOCRIT (BEAKER) (test oihq=208) 33.3 % 40.1-51.0 MEAN CORPUSCULAR VOLUME (BEAKER) (test jprx=249) 86.3 fL 79.0-92.2 MEAN CORPUSCULAR HEMOGLOBIN (BEAKER) (test 28.8 pg 25.7-32.2 cflw=345) MEAN CORPUSCULAR HEMOGLOBIN CONC (BEAKER) (test 33.3 GM/DL 32.3-36.5 zkqg=164) RED CELL DISTRIBUTION WIDTH (BEAKER) (test 14.2 % 11.6-14.4 qwew=553) PLATELET COUNT (BEAKER) (test xtqh=599) 414 K/CU MM 150-450 MEAN PLATELET VOLUME (BEAKER) (test usci=168) 9.8 fL 9.4-12.4 NUCLEATED RED BLOOD CELLS (BEAKER) (test 0 /100 WBC 0-0 yskb=918) NEUTROPHILS RELATIVE PERCENT (BEAKER) (test 69 % cpgi=312) LYMPHOCYTES RELATIVE PERCENT (BEAKER) (test 21 % ybmd=027) MONOCYTES RELATIVE PERCENT (BEAKER) (test 7 % oanh=066) EOSINOPHILS RELATIVE PERCENT (BEAKER) (test 2 % spxv=605) BASOPHILS RELATIVE PERCENT (BEAKER) (test 0 % qkmc=932) NEUTROPHILS ABSOLUTE COUNT (BEAKER) (test 6.66 K/ L 1.78-5.38 emvv=051) LYMPHOCYTES ABSOLUTE COUNT (BEAKER) (test 2.00 K/ L 1.32-3.57 eegd=099) MONOCYTES ABSOLUTE COUNT (BEAKER) (test 0.71 K/ L 0.30-0.82 clpg=826) EOSINOPHILS ABSOLUTE COUNT (BEAKER) (test 0.20 K/ L 0.04-0.54 kbbd=381) BASOPHILS ABSOLUTE COUNT (BEAKER) (test 0.03 K/ L 0.01-0.08 pizl=930) IMMATURE GRANULOCYTES-RELATIVE PERCENT (BEAKER) 0 % 0-1 (test qmly=2938) CT, CHEST, WITH [id number] 04:21:00FINAL REPORT EXAMINATION: Chest CT with IV contrast. CLINICAL HISTORY: Livermalignancy. Staging. COMPARISON EXAM: Abdominal MRI 12/06/2018 TECHNIQUE: [...] lymph nodes. Lung volumes are relatively large withapical radiolucency which may reflect early architectural distortion related to emphysema. Trachea and central airways are also mildly dilated which again may reflect obstructive lung disease. No evidence of a discrete endobronchial lesion or significant airway endoluminal debris. No definite evidenceof a discrete solid pulmonary nodule, pneumonia, pleural effusion, pneumothorax or pneumomediastinum. 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 [...] thoracic metastatic disease. Please see above for details.Signed: Marlee Pool MDReport Verified Date/Time: 12/08/2018 04:21:30 Reading Location : [address] Reading Room HEPATITIS C PCR, [id number] 21:55: 00 Test Item Value Reference Range Comments HCV RESULT COMPONENT (BEAKER) HCV RNA not detected HCV RNA not detected (test jvzn=8967) This test uses a Real-Time Polymerase Chain Reaction (RT-PCR) methodology and was performed using DAVID Ampliprep/DAVID TaqMan HCV test kit version 2.0 ( [employer]).Reportable range for this assay is 15 - 100,000, 000 IU per mL (1.18 - 8.00 Log IU/mL).HEPATIC FUNCTION [id number] 05:54:00 Test Item Value Reference Range Comments TOTAL PROTEIN (BEAKER) (test swme=346) 6.6 gm/dL 6.0-8.3 ALBUMIN (BEAKER) (test huqb=4719) 3.5 g/dL 3.5-5.0 BILIRUBIN TOTAL (BEAKER) (test kzig=980) 0.3 mg/dL 0.2-1.2 BILIRUBIN DIRECT (BEAKER) (test hzaz=346) 0.2 mg/dL 0.1-0.5 ALKALINE PHOSPHATASE (BEAKER) (test wjzp=855) 174 U/L 40-150 AST (SGOT) (BEAKER) (test brfg=330) 346 U/L 5-34 ALT (SGPT) (BEAKER) (test jdtd=493) 326 U/L 6-55 BASIC METABOLIC [id number] 05:54:00 Test Item Value Reference Range Comments SODIUM (BEAKER) (test 136 meq/L 136-145 ztkn=718) POTASSIUM (BEAKER) (test 4.4 meq/L 3.5-5.1 gleq=578) CHLORIDE (BEAKER) (test 108 meq/L 98-107 gxoz=678) CO2 (BEAKER) (test 21 meq/L 22-29 uvgc=665) BLOOD UREA NITROGEN 11 mg/dL 7-21 (BEAKER) (test kaxg=541) CREATININE (BEAKER) (test 0.76 mg/dL 0.57-1.25 sagn=081) GLUCOSE RANDOM (BEAKER) 94 mg/dL 70-105 (test bqni=631) CALCIUM (BEAKER) (test 8.8 mg/dL 8.4-10.2 icmc=029) EGFR (BEAKER) (test 128 mL/min/1.73 sq m ESTIMATED GFR IS NOT uosw=8822) ACCURATE CREATININE CLEARANCE IN PREDICTING GLOMERULAR FILTRATION RATE. ESTIMATED GFR IS NOT APPLICABLE FOR DIALYSIS PATIENTS. [id number] 05:33:00 Test Item Value Reference Range Comments PROTIME (BEAKER) (test ztmm=040) 14.7 seconds 11.9-14.2 INR (BEAKER) (test nljj=407) 1.2 <=5.9 PARTIAL THROMBOPLASTIN TIME (BEAKER) (test 38.1 seconds 22.5-36.0 ynxb=194) Effective 10/21/2018: PT Reference Range ChangeNew: 11.9-14.2 Previous: 11.7- 14.7RECOMMENDED COUMADIN/WARFARIN INR THERAPY RANGESSTANDARD DOSE: 2.0-3.0 Includes: PROPHYLAXIS for venous thrombosis, systemic embolization; TREATMENT for venous thrombosis and/or pulmonary embolus.HIGH RISK: Target INR is2.5-3.5 for patients wiht mechanical heart valves.CBC W/PLT COUNT & AUTO [id number] 05:14:00 Test Item Value Reference Range Comments WHITE BLOOD CELL COUNT (BEAKER) (test tmgl=897) 7.8 K/ L 3.5-10.5 RED BLOOD CELL COUNT (BEAKER) (test rftt=220) 3.82 M/ L 4.63-6.08 HEMOGLOBIN (BEAKER) (test mqev=422) 11.1 GM/DL 13.7-17.5 HEMATOCRIT (BEAKER) (test qphl=479) 33.6 % 40.1-51.0 MEAN CORPUSCULAR VOLUME (BEAKER) (test ddni=555) 88.0 fL 79.0-92.2 MEAN CORPUSCULAR HEMOGLOBIN (BEAKER) (test 29.1 pg 25.7-32.2 sroz=429) MEAN CORPUSCULAR HEMOGLOBIN CONC (BEAKER) (test 33.0 GM/DL 32.3-36.5 bjec=935) RED CELL DISTRIBUTION WIDTH (BEAKER) (test 13.7 % 11.6-14.4 eyzk=402) PLATELET COUNT (BEAKER) (test qfwj=166) 399 K/CU MM 150-450 MEAN PLATELET VOLUME (BEAKER) (test nrei=267) 9.4 fL 9.4-12.4 NUCLEATED RED BLOOD CELLS (BEAKER) (test 0 /100 WBC 0-0 wbld=532) NEUTROPHILS RELATIVE PERCENT (BEAKER) (test 62 % fgmv=881) LYMPHOCYTES RELATIVE PERCENT (BEAKER) (test 28 % znea=765) MONOCYTES RELATIVE PERCENT (BEAKER) (test 7 % umpo=654) EOSINOPHILS RELATIVE PERCENT (BEAKER) (test 3 % sred=613) BASOPHILS RELATIVE PERCENT (BEAKER) (test 0 % hpko=647) NEUTROPHILS ABSOLUTE COUNT (BEAKER) (test 4.87 K/ L 1.78-5.38 inyt=575) LYMPHOCYTES ABSOLUTE COUNT (BEAKER) (test 2.17 K/ L 1.32-3.57 wyky=682) MONOCYTES ABSOLUTE COUNT (BEAKER) (test 0.57 K/ L 0.30-0.82 iuke=772) EOSINOPHILS ABSOLUTE COUNT (BEAKER) (test 0.20 K/ L 0.04-0.54 cimz=240) BASOPHILS ABSOLUTE COUNT (BEAKER) (test 0.02 K/ L 0.01-0.08 qhnd=677) IMMATURE GRANULOCYTES-RELATIVE PERCENT (BEAKER) 0 % 0-1 (test ssia=8677) MR, ABDOMEN, [id number] 10:49:00FINAL REPORT MRI of the abdomen dated December 06, 2018 Comment: Multiplanar T1 and T2-weighted images of the abdomen, postcontrast axial and coronal T1-weighted images of the abdomen were obtained. Liver and spleen are normal in size. Heterogeneous enhancing mass is seen involving the segment 1, segment 2, segment 3, segment 4 , and segment 5 of the liver. The hepatic mass measuresat least to 10 x 11 cm. The [...] visualized small and large bowel are unremarkable. IMPRESSION:1. Large heterogeneous appearing masses involving segment 1, segment 2, segment 3, segment 4, and the segment 5 of the liver suspicious for multifocal hepatocellular carcinoma.2. Portal vein thrombosis. Signed: Michelle Garner MDReport Verified Date/Time: 12/06/2018 10:49:29 Reading Location: [address] Body Reading Room CARCINOEMBRYONIC ANTIGEN (CEA)2018-12-06 07:14:00 Test Item Value Reference Range Comments CARCINOEMBRYONIC ANTIGEN (BEAKER) (test ulij=457) 0.7 ng/mL 0.0-5.0 HEPATIC FUNCTION [id number] 07:10:00 Test Item Value Reference Range Comments TOTAL PROTEIN (BEAKER) (test ypbi=630) 6.6 gm/dL 6.0-8.3 ALBUMIN (BEAKER) (test eaej=3836) 3.5 g/dL 3.5-5.0 BILIRUBIN TOTAL (BEAKER) (test eumo=272) 0.3 mg/dL 0.2-1.2 BILIRUBIN DIRECT (BEAKER) (test dphr=426) 0.1 mg/dL 0.1-0.5 ALKALINE PHOSPHATASE (BEAKER) (test yacv=879) 158 U/L 40-150 AST (SGOT) (BEAKER) (test gvfy=659) 249 U/L 5-34 ALT (SGPT) (BEAKER) (test hpkh=476) 151 U/L 6-55 BASIC METABOLIC [id number] 07:10:00 Test Item Value Reference Range Comments SODIUM (BEAKER) (test 136 meq/L 136-145 tvyn=509) POTASSIUM (BEAKER) (test 4.0 meq/L 3.5-5.1 ivfr=165) CHLORIDE (BEAKER) (test 107 meq/L 98-107 joof=019) CO2 (BEAKER) (test 22 meq/L 22-29 kzlx=007) BLOOD UREA NITROGEN 10 mg/dL 7-21 (BEAKER) (test sorg=752) CREATININE (BEAKER) (test 0.74 mg/dL 0.57-1.25 fbth=442) GLUCOSE RANDOM (BEAKER) 86 mg/dL 70-105 (test ivtp=658) CALCIUM (BEAKER) (test 8.8 mg/dL 8.4-10.2 angm=942) EGFR (BEAKER) (test 132 mL/min/1.73 sq m ESTIMATED GFR IS NOT yzoo=6086) ACCURATE CREATININE CLEARANCE IN PREDICTING GLOMERULAR FILTRATION RATE. ESTIMATED GFR IS NOT APPLICABLE FOR DIALYSIS PATIENTS. PT/[id number] 06:27:00 Test Item Value Reference Range Comments PROTIME (BEAKER) (test jpuq=474) 14.1 seconds 11.9-14.2 INR (BEAKER) (test wnas=033) 1.2 <=5.9 PARTIAL THROMBOPLASTIN TIME (BEAKER) (test 41.1 seconds 22.5-36.0 jygv=423) Effective 10/21/2018: PT Reference Range ChangeNew: 11.9-14.2 Previous: 11.7- 14.7RECOMMENDED COUMADIN/WARFARIN INR THERAPY RANGESSTANDARD DOSE: 2.0-3.0 Includes: PROPHYLAXIS for venous thrombosis, systemic embolization; TREATMENT for venous thrombosis and/or pulmonary embolus.HIGH RISK: Target INR is2.5-3.5 for patients wiht mechanical heart valves.CBC W/PLT COUNT & AUTO [id number] 06:18:00 Test Item Value Reference Range Comments WHITE BLOOD CELL COUNT (BEAKER) (test xvbf=605) 7.9 K/ L 3.5-10.5 RED BLOOD CELL COUNT (BEAKER) (test sqrw=157) 3.79 M/ L 4.63-6.08 HEMOGLOBIN (BEAKER) (test wmoq=756) 11.0 GM/DL 13.7-17.5 HEMATOCRIT (BEAKER) (test mnmu=229) 33.1 % 40.1-51.0 MEAN CORPUSCULAR VOLUME (BEAKER) (test titg=735) 87.3 fL 79.0-92.2 MEAN CORPUSCULAR HEMOGLOBIN (BEAKER) (test 29.0 pg 25.7-32.2 zxms=054) MEAN CORPUSCULAR HEMOGLOBIN CONC (BEAKER) (test 33.2 GM/DL 32.3-36.5 hgvl=474) RED CELL DISTRIBUTION WIDTH (BEAKER) (test 13.7 % 11.6-14.4 rgop=073) PLATELET COUNT (BEAKER) (test bqve=726) 422 K/CU MM 150-450 MEAN PLATELET VOLUME (BEAKER) (test mkog=711) 9.4 fL 9.4-12.4 NUCLEATED RED BLOOD CELLS (BEAKER) (test 0 /100 WBC 0-0 ujjx=984) NEUTROPHILS RELATIVE PERCENT (BEAKER) (test 58 % nrds=041) LYMPHOCYTES RELATIVE PERCENT (BEAKER) (test 33 % rmqd=100) MONOCYTES RELATIVE PERCENT (BEAKER) (test 7 % sbim=442) EOSINOPHILS RELATIVE PERCENT (BEAKER) (test 2 % gtjp=017) BASOPHILS RELATIVE PERCENT (BEAKER) (test 0 % wzsr=626) NEUTROPHILS ABSOLUTE COUNT (BEAKER) (test 4.55 K/ L 1.78-5.38 usfm=621) LYMPHOCYTES ABSOLUTE COUNT (BEAKER) (test 2.59 K/ L 1.32-3.57 qhzu=438) MONOCYTES ABSOLUTE COUNT (BEAKER) (test 0.55 K/ L 0.30-0.82 kmbn=180) EOSINOPHILS ABSOLUTE COUNT (BEAKER) (test 0.15 K/ L 0.04-0.54 npih=182) BASOPHILS ABSOLUTE COUNT (BEAKER) (test 0.02 K/ L 0.01-0.08 mtpt=104) IMMATURE GRANULOCYTES-RELATIVE PERCENT (BEAKER) 0 % 0-1 (test wdeo=3187) HEPATITIS PANEL, [id number] 07:04:00 Test Item Value Reference Range Comments HEPATITIS A IGM ANTIBODY (BEAKER) (test Nonreactive Nonreactive xeuf=533) HEPATITIS B CORE IGM ANTIBODY (BEAKER) (test Nonreactive Nonreactive bodw=430) HEPATITIS C ANTIBODY (BEAKER) (test pzfj=554) Reactive Nonreactive HEPATITIS B SURFACE ANTIGEN (2) (BEAKER) (test Nonreactive Nonreactive bovb=8650) [id number] 06:52:00 Test Item Value Reference Range Comments MAGNESIUM (BEAKER) (test kwks=195) 2.1 mg/dL 1.6-2.6 COMPREHENSIVE METABOLIC [id number] 06:52:00 Test Item Value Reference Range Comments TOTAL PROTEIN (BEAKER) 7.2 gm/dL 6.0-8.3 (test tlcp=899) ALBUMIN (BEAKER) (test 3.8 g/dL 3.5-5.0 vkhw=4345) ALKALINE PHOSPHATASE 148 U/L 40-150 (BEAKER) (test vncm=013) BILIRUBIN TOTAL (BEAKER) 0.3 mg/dL 0.2-1.2 (test dajv=140) SODIUM (BEAKER) (test 131 meq/L 136-145 miwc=663) POTASSIUM (BEAKER) (test 4.0 meq/L 3.5-5.1 spes=957) CHLORIDE (BEAKER) (test 100 meq/L 98-107 wobw=934) CO2 (BEAKER) (test 24 meq/L 22-29 gtmx=943) BLOOD UREA NITROGEN 12 mg/dL 7-21 (BEAKER) (test qqxo=681) CREATININE (BEAKER) (test 0.91 mg/dL 0.57-1.25 xkwg=359) GLUCOSE RANDOM (BEAKER) 98 mg/dL 70-105 (test tvxh=695) CALCIUM (BEAKER) (test 8.9 mg/dL 8.4-10.2 flsf=925) AST (SGOT) (BEAKER) (test 135 U/L 5-34 ygym=780) ALT (SGPT) (BEAKER) (test 81 U/L 6-55 vtnz=606) EGFR (BEAKER) (test 104 mL/min/1.73 sq ESTIMATED GFR IS NOT ybwb=2725) m ACCURATE CREATININE CLEARANCE IN PREDICTING GLOMERULAR FILTRATION RATE. ESTIMATED GFR IS NOT APPLICABLE FOR DIALYSIS PATIENTS. [id number] 05:58:00 Test Item Value Reference Range Comments PROTIME (BEAKER) (test zsxp=070) 13.9 seconds 11.9-14.2 INR (BEAKER) (test mivp=144) 1.1 <=5.9 PARTIAL THROMBOPLASTIN TIME (BEAKER) (test 37.6 seconds 22.5-36.0 wktm=339) Effective 10/21/2018: PT Reference Range ChangeNew: 11.9-14.2 Previous: 11.7- 14.7RECOMMENDED COUMADIN/WARFARIN INR THERAPY RANGESSTANDARD DOSE: 2.0-3.0 Includes: PROPHYLAXIS for venous thrombosis, systemic embolization; TREATMENT for venous thrombosis and/or pulmonary embolus.HIGH RISK: Target INR is2.5-3.5 for patients wiht mechanical heart valves.CBC W/PLT COUNT & AUTO [id number] 05:35:00 Test Item Value Reference Range Comments WHITE BLOOD CELL COUNT (BEAKER) (test dkxm=640) 9.1 K/ L 3.5-10.5 RED BLOOD CELL COUNT (BEAKER) (test jnaz=251) 4.18 M/ L 4.63-6.08 HEMOGLOBIN (BEAKER) (test lkcc=380) 12.0 GM/DL 13.7-17.5 HEMATOCRIT (BEAKER) (test ksde=290) 36.0 % 40.1-51.0 MEAN CORPUSCULAR VOLUME (BEAKER) (test ihqi=900) 86.1 fL 79.0-92.2 MEAN CORPUSCULAR HEMOGLOBIN (BEAKER) (test 28.7 pg 25.7-32.2 qzwq=391) MEAN CORPUSCULAR HEMOGLOBIN CONC (BEAKER) (test 33.3 GM/DL 32.3-36.5 abyc=808) RED CELL DISTRIBUTION WIDTH (BEAKER) (test 13.4 % 11.6-14.4 yseo=987) PLATELET COUNT (BEAKER) (test bzbj=284) 477 K/CU MM 150-450 MEAN PLATELET VOLUME (BEAKER) (test phly=012) 9.2 fL 9.4-12.4 NUCLEATED RED BLOOD CELLS (BEAKER) (test 0 /100 WBC 0-0 idmd=814) NEUTROPHILS RELATIVE PERCENT (BEAKER) (test 58 % zgam=757) LYMPHOCYTES RELATIVE PERCENT (BEAKER) (test 33 % fcab=062) MONOCYTES RELATIVE PERCENT (BEAKER) (test 7 % qxql=896) EOSINOPHILS RELATIVE PERCENT (BEAKER) (test 2 % kqnc=197) BASOPHILS RELATIVE PERCENT (BEAKER) (test 0 % dzjs=890) NEUTROPHILS ABSOLUTE COUNT (BEAKER) (test 5.24 K/ L 1.78-5.38 xxsi=468) LYMPHOCYTES ABSOLUTE COUNT (BEAKER) (test 2.94 K/ L 1.32-3.57 xikg=882) MONOCYTES ABSOLUTE COUNT (BEAKER) (test 0.66 K/ L 0.30-0.82 rbus=747) EOSINOPHILS ABSOLUTE COUNT (BEAKER) (test 0.16 K/ L 0.04-0.54 ryvh=734) BASOPHILS ABSOLUTE COUNT (BEAKER) (test 0.03 K/ L 0.01-0.08 leci=034) IMMATURE GRANULOCYTES-RELATIVE PERCENT (BEAKER) 0 % 0-1 (test okpg=0280) ALPHA FETOPROTEIN (AFP), TUMOR [id number] 02:51:00 Test Item Value Reference Range Comments ALPHA-FETOPROTEIN (BEAKER) (test ytro=0675) > ng/mL <10.0 BLOOD [id number] 18:00:00 Test Item Value Reference Range Comments CULTURE (BEAKER) (test xncf=9218) No growth in 5 days BLOOD [id number] 18:00:00 Test Item Value Reference Range Comments CULTURE (BEAKER) (test dllx=5966) No growth in 5 days BLOOD [id number] 00:00:00 Test Item Value Reference Range Comments CULTURE (BEAKER) (test igsj=3181) No growth in 5 days BASIC METABOLIC [id number] 05:57:00 Test Item Value Reference Range Comments SODIUM (BEAKER) (test 139 meq/L 136-145 babb=930) POTASSIUM (BEAKER) (test 3.5 meq/L 3.5-5.1 hvfi=216) CHLORIDE (BEAKER) (test 105 meq/L 98-107 fjab=848) CO2 (BEAKER) (test 25 meq/L 22-29 ypmu=353) BLOOD UREA NITROGEN 8 mg/dL 7-21 (BEAKER) (test gwqm=268) CREATININE (BEAKER) (test 0.78 mg/dL 0.57-1.25 przp=346) GLUCOSE RANDOM (BEAKER) 119 mg/dL 70-105 (test hbvo=273) CALCIUM (BEAKER) (test 8.9 mg/dL 8.4-10.2 lrjt=342) EGFR (BEAKER) (test 124 mL/min/1.73 sq m ESTIMATED GFR IS NOT dxem=5911) ACCURATE CREATININE CLEARANCE IN PREDICTING GLOMERULAR FILTRATION RATE. ESTIMATED GFR IS NOT APPLICABLE FOR DIALYSIS PATIENTS. CBC W/PLT COUNT & AUTO [id number] 05:11:00 Test Item Value Reference Range Comments WHITE BLOOD CELL COUNT (BEAKER) (test lbhy=072) 10.2 K/ L 3.5-10.5 RED BLOOD CELL COUNT (BEAKER) (test kkuu=431) 3.90 M/ L 4.63-6.08 HEMOGLOBIN (BEAKER) (test sbng=349) 12.0 GM/DL 13.7-17.5 HEMATOCRIT (BEAKER) (test osal=756) 35.3 % 40.1-51.0 MEAN CORPUSCULAR VOLUME (BEAKER) (test rsak=846) 90.5 fL 79.0-92.2 MEAN CORPUSCULAR HEMOGLOBIN (BEAKER) (test 30.8 pg 25.7-32.2 ujop=111) MEAN CORPUSCULAR HEMOGLOBIN CONC (BEAKER) (test 34.0 GM/DL 32.3-36.5 kdbk=592) RED CELL DISTRIBUTION WIDTH (BEAKER) (test 13.3 % 11.6-14.4 dscr=823) PLATELET COUNT (BEAKER) (test rrhw=223) 233 K/CU MM 150-450 MEAN PLATELET VOLUME (BEAKER) (test skum=864) 10.9 fL 9.4-12.4 NUCLEATED RED BLOOD CELLS (BEAKER) (test 0 /100 WBC 0-0 nizo=426) NEUTROPHILS RELATIVE PERCENT (BEAKER) (test 58 % sfjz=206) LYMPHOCYTES RELATIVE PERCENT (BEAKER) (test 25 % wewv=602) MONOCYTES RELATIVE PERCENT (BEAKER) (test 11 % vtmx=613) EOSINOPHILS RELATIVE PERCENT (BEAKER) (test 5 % jupm=310) BASOPHILS RELATIVE PERCENT (BEAKER) (test 1 % gkdr=744) NEUTROPHILS ABSOLUTE COUNT (BEAKER) (test 5.92 K/ L 1.78-5.38 yaed=003) LYMPHOCYTES ABSOLUTE COUNT (BEAKER) (test 2.51 K/ L 1.32-3.57 bgni=665) MONOCYTES ABSOLUTE COUNT (BEAKER) (test 1.12 K/ L 0.30-0.82 cgnj=426) EOSINOPHILS ABSOLUTE COUNT (BEAKER) (test 0.50 K/ L 0.04-0.54 mqqy=711) BASOPHILS ABSOLUTE COUNT (BEAKER) (test 0.06 K/ L 0.01-0.08 asch=666) IMMATURE GRANULOCYTES-RELATIVE PERCENT (BEAKER) 0 % 0-1 (test zddy=0744) [id number] 07:07:00 Test Item Value Reference Range Comments PARTIAL THROMBOPLASTIN TIME (BEAKER) (test 107.0 seconds 22.5-36.0 gclq=584) [id number] 06:15:00 Test Item Value Reference Range Comments PARTIAL THROMBOPLASTIN TIME (BEAKER) (test 117.6 seconds 22.5-36.0 wdhu=781) [id number] 05:49:00 Test Item Value Reference Range Comments PARTIAL THROMBOPLASTIN TIME (BEAKER) (test 96.1 seconds 22.5-36.0 wpsz=271) BASIC METABOLIC [id number] 05:21:00 Test Item Value Reference Range Comments SODIUM (BEAKER) (test 137 meq/L 136-145 omno=262) POTASSIUM (BEAKER) (test 3.8 meq/L 3.5-5.1 fuyj=150) CHLORIDE (BEAKER) (test 104 meq/L 98-107 whau=932) CO2 (BEAKER) (test 24 meq/L 22-29 tqrc=647) BLOOD UREA NITROGEN 9 mg/dL 7-21 (BEAKER) (test ksrw=873) CREATININE (BEAKER) (test 0.80 mg/dL 0.57-1.25 yidp=894) GLUCOSE RANDOM (BEAKER) 93 mg/dL 70-105 (test zrqd=147) CALCIUM (BEAKER) (test 8.7 mg/dL 8.4-10.2 hwws=460) EGFR (BEAKER) (test 121 mL/min/1.73 sq m ESTIMATED GFR IS NOT auul=6419) ACCURATE CREATININE CLEARANCE IN PREDICTING GLOMERULAR FILTRATION RATE. ESTIMATED GFR IS NOT APPLICABLE FOR DIALYSIS PATIENTS. CBC W/PLT COUNT & AUTO [id number] 04:58:00 Test Item Value Reference Range Comments WHITE BLOOD CELL COUNT (BEAKER) (test ibzc=597) 11.2 K/ L 3.5-10.5 RED BLOOD CELL COUNT (BEAKER) (test iyms=997) 3.92 M/ L 4.63-6.08 HEMOGLOBIN (BEAKER) (test byfo=641) 12.0 GM/DL 13.7-17.5 HEMATOCRIT (BEAKER) (test pvup=063) 35.0 % 40.1-51.0 MEAN CORPUSCULAR VOLUME (BEAKER) (test toii=748) 89.3 fL 79.0-92.2 MEAN CORPUSCULAR HEMOGLOBIN (BEAKER) (test 30.6 pg 25.7-32.2 wihn=722) MEAN CORPUSCULAR HEMOGLOBIN CONC (BEAKER) (test 34.3 GM/DL 32.3-36.5 gwaz=063) RED CELL DISTRIBUTION WIDTH (BEAKER) (test 13.3 % 11.6-14.4 fora=095) PLATELET COUNT (BEAKER) (test halm=986) 222 K/CU MM 150-450 MEAN PLATELET VOLUME (BEAKER) (test ijde=855) 10.6 fL 9.4-12.4 NUCLEATED RED BLOOD CELLS (BEAKER) (test 0 /100 WBC 0-0 dnox=278) NEUTROPHILS RELATIVE PERCENT (BEAKER) (test 53 % hsab=194) LYMPHOCYTES RELATIVE PERCENT (BEAKER) (test 32 % pjct=420) MONOCYTES RELATIVE PERCENT (BEAKER) (test 11 % rutg=623) EOSINOPHILS RELATIVE PERCENT (BEAKER) (test 4 % nfsj=343) BASOPHILS RELATIVE PERCENT (BEAKER) (test 0 % glgm=253) NEUTROPHILS ABSOLUTE COUNT (BEAKER) (test 6.00 K/ L 1.78-5.38 jjsp=385) LYMPHOCYTES ABSOLUTE COUNT (BEAKER) (test 3.57 K/ L 1.32-3.57 ytoj=161) MONOCYTES ABSOLUTE COUNT (BEAKER) (test 1.20 K/ L 0.30-0.82 iwzq=128) EOSINOPHILS ABSOLUTE COUNT (BEAKER) (test 0.40 K/ L 0.04-0.54 dciw=963) BASOPHILS ABSOLUTE COUNT (BEAKER) (test 0.03 K/ L 0.01-0.08 vudx=863) IMMATURE GRANULOCYTES-RELATIVE PERCENT (BEAKER) 0 % 0-1 (test zjcd=0260) [id number] 21:35:00 Test Item Value Reference Range Comments PARTIAL THROMBOPLASTIN TIME (BEAKER) (test 89.5 seconds 22.5-36.0 rcrt=288) [id number] 15:44:00 Test Item Value Reference Range Comments PARTIAL THROMBOPLASTIN TIME (BEAKER) (test 85.8 seconds 22.5-36.0 ystd=223) [id number] 09:50:00 Test Item Value Reference Range Comments PARTIAL THROMBOPLASTIN TIME (BEAKER) (test 53.6 seconds 22.5-36.0 zkqv=642) BASIC METABOLIC [id number] 06:24:00 Test Item Value Reference Range Comments SODIUM (BEAKER) (test 137 meq/L 136-145 ahyx=576) POTASSIUM (BEAKER) (test 3.8 meq/L 3.5-5.1 viwi=350) CHLORIDE (BEAKER) (test 105 meq/L 98-107 cwmu=453) CO2 (BEAKER) (test 24 meq/L 22-29 nvax=683) BLOOD UREA NITROGEN 11 mg/dL 7-21 (BEAKER) (test obwp=519) CREATININE (BEAKER) (test 0.76 mg/dL 0.57-1.25 wjst=600) GLUCOSE RANDOM (BEAKER) 94 mg/dL 70-105 (test wieq=629) CALCIUM (BEAKER) (test 8.5 mg/dL 8.4-10.2 kkxs=188) EGFR (BEAKER) (test 128 mL/min/1.73 sq m ESTIMATED GFR IS NOT cvqp=0965) ACCURATE CREATININE CLEARANCE IN PREDICTING GLOMERULAR FILTRATION RATE. ESTIMATED GFR IS NOT APPLICABLE FOR DIALYSIS PATIENTS. CBC W/PLT COUNT & AUTO [id number] 06:22:00 Test Item Value Reference Range Comments WHITE BLOOD CELL COUNT (BEAKER) (test pwaw=801) 12.3 K/ L 3.5-10.5 RED BLOOD CELL COUNT (BEAKER) (test kyyp=226) 4.01 M/ L 4.63-6.08 HEMOGLOBIN (BEAKER) (test jjjt=757) 12.1 GM/DL 13.7-17.5 HEMATOCRIT (BEAKER) (test krnr=942) 36.4 % 40.1-51.0 MEAN CORPUSCULAR VOLUME (BEAKER) (test siif=799) 90.8 fL 79.0-92.2 MEAN CORPUSCULAR HEMOGLOBIN (BEAKER) (test 30.2 pg 25.7-32.2 renh=387) MEAN CORPUSCULAR HEMOGLOBIN CONC (BEAKER) (test 33.2 GM/DL 32.3-36.5 vjqd=984) RED CELL DISTRIBUTION WIDTH (BEAKER) (test 13.4 % 11.6-14.4 rfud=363) PLATELET COUNT (BEAKER) (test crim=599) 233 K/CU MM 150-450 MEAN PLATELET VOLUME (BEAKER) (test zcok=003) 10.7 fL 9.4-12.4 NUCLEATED RED BLOOD CELLS (BEAKER) (test 0 /100 WBC 0-0 pggd=958) NEUTROPHILS RELATIVE PERCENT (BEAKER) (test 70 % syko=698) LYMPHOCYTES RELATIVE PERCENT (BEAKER) (test 21 % drtq=414) MONOCYTES RELATIVE PERCENT (BEAKER) (test 7 % pzsv=490) EOSINOPHILS RELATIVE PERCENT (BEAKER) (test 2 % ecjh=665) BASOPHILS RELATIVE PERCENT (BEAKER) (test 0 % oacj=273) NEUTROPHILS ABSOLUTE COUNT (BEAKER) (test 8.59 K/ L 1.78-5.38 tewb=126) LYMPHOCYTES ABSOLUTE COUNT (BEAKER) (test 2.52 K/ L 1.32-3.57 dvbt=453) MONOCYTES ABSOLUTE COUNT (BEAKER) (test 0.86 K/ L 0.30-0.82 ngav=731) EOSINOPHILS ABSOLUTE COUNT (BEAKER) (test 0.23 K/ L 0.04-0.54 zckz=294) BASOPHILS ABSOLUTE COUNT (BEAKER) (test 0.03 K/ L 0.01-0.08 givx=965) IMMATURE GRANULOCYTES-RELATIVE PERCENT (BEAKER) 0 % 0-1 (test lswv=7016) [id number] 17:27:00 Test Item Value Reference Range Comments ACTIVATED CLOTTING TIME 269 sec TESTED AT [facility] [address] (BEAKER) (test slgk=525) [place] [address] CT, CTA AAA, W/ [place].EXT.[id number] 15:50:00Please page me when done. Need stat cta for surgery. Thanks.Addendum BeginsREPORT STATUS:A Addendum: I reviewed the nonvascular features of this examination and concur with Dr. Restrepo's report. Signed: Juan Esparza MDReport Verified Date/ Time: 03/04/2018 15:50:09 Reading Location: [place] [address] Angio Body Reading RoomAddendum EndsFINAL REPORT CT [...] dynamic data set. In the right, [place] right SFA is occluded. The right profunda [...] femoral bypass graft is identified. 3. The [place] left SFA is occluded. The right SFA [...] dictated regarding the non-vascular findings by the [employer] Supervisor Radiologist. Signed: Kaye Shawn SAUCEDOeport Verified Date/Time: 03/04/2018 07:12:51 Reading Location: [place] [id number] MRI [id number] 10:51:00 Test Item Value Reference Range Comments PARTIAL THROMBOPLASTIN TIME (BEAKER) (test 66.0 seconds 22.5-36.0 ccxp=987) BASIC METABOLIC [id number] 02:33:00 Test Item Value Reference Range Comments SODIUM (BEAKER) (test 137 meq/L 136-145 whdo=232) POTASSIUM (BEAKER) (test 3.8 meq/L 3.5-5.1 zhfe=913) CHLORIDE (BEAKER) (test 106 meq/L 98-107 kcgw=751) CO2 (BEAKER) (test 21 meq/L 22-29 svwh=739) BLOOD UREA NITROGEN 7 mg/dL 7-21 (BEAKER) (test ctqf=748) CREATININE (BEAKER) (test 0.77 mg/dL 0.57-1.25 dpsz=657) GLUCOSE RANDOM (BEAKER) 96 mg/dL 70-105 (test xxsm=859) CALCIUM (BEAKER) (test 9.1 mg/dL 8.4-10.2 rskz=486) EGFR (BEAKER) (test 126 mL/min/1.73 sq m ESTIMATED GFR IS NOT jmll=2727) ACCURATE CREATININE CLEARANCE IN PREDICTING GLOMERULAR FILTRATION RATE. ESTIMATED GFR IS NOT APPLICABLE FOR DIALYSIS PATIENTS. [id number] 02:28:00 Test Item Value Reference Range Comments PARTIAL THROMBOPLASTIN TIME (BEAKER) (test 44.6 seconds 22.5-36.0 evdz=819) CBC W/PLT COUNT & AUTO [id number] 02:20:00 Test Item Value Reference Range Comments WHITE BLOOD CELL COUNT (BEAKER) (test fruz=556) 10.5 K/ L 3.5-10.5 RED BLOOD CELL COUNT (BEAKER) (test srbi=894) 4.55 M/ L 4.63-6.08 HEMOGLOBIN (BEAKER) (test awjt=071) 14.0 GM/DL 13.7-17.5 HEMATOCRIT (BEAKER) (test llkq=006) 40.5 % 40.1-51.0 MEAN CORPUSCULAR VOLUME (BEAKER) (test eqhm=895) 89.0 fL 79.0-92.2 MEAN CORPUSCULAR HEMOGLOBIN (BEAKER) (test 30.8 pg 25.7-32.2 dmfa=559) MEAN CORPUSCULAR HEMOGLOBIN CONC (BEAKER) (test 34.6 GM/DL 32.3-36.5 hccz=096) RED CELL DISTRIBUTION WIDTH (BEAKER) (test 13.3 % 11.6-14.4 cziv=063) PLATELET COUNT (BEAKER) (test qdcx=886) 262 K/CU MM 150-450 MEAN PLATELET VOLUME (BEAKER) (test ikwr=516) 10.1 fL 9.4-12.4 NUCLEATED RED BLOOD CELLS (BEAKER) (test 0 /100 WBC 0-0 hrfb=261) NEUTROPHILS RELATIVE PERCENT (BEAKER) (test 57 % zqgt=319) LYMPHOCYTES RELATIVE PERCENT (BEAKER) (test 32 % yelm=798) MONOCYTES RELATIVE PERCENT (BEAKER) (test 7 % mqdd=483) EOSINOPHILS RELATIVE PERCENT (BEAKER) (test 3 % fsxl=490) BASOPHILS RELATIVE PERCENT (BEAKER) (test 1 % sjhm=224) NEUTROPHILS ABSOLUTE COUNT (BEAKER) (test 6.00 K/ L 1.78-5.38 auiu=679) LYMPHOCYTES ABSOLUTE COUNT (BEAKER) (test 3.38 K/ L 1.32-3.57 dsca=133) MONOCYTES ABSOLUTE COUNT (BEAKER) (test 0.74 K/ L 0.30-0.82 pctm=354) EOSINOPHILS ABSOLUTE COUNT (BEAKER) (test 0.34 K/ L 0.04-0.54 pmws=709) BASOPHILS ABSOLUTE COUNT (BEAKER) (test 0.05 K/ L 0.01-0.08 gdwj=007) IMMATURE GRANULOCYTES-RELATIVE PERCENT (BEAKER) 0 % 0-1 (test vtjw=3771) [id number] 23:51:00 Test Item Value Reference Range Comments PARTIAL THROMBOPLASTIN TIME (BEAKER) (test > seconds 22.5-36.0 xqwf=489) [id number] 15:27:00 Test Item Value Reference Range Comments PARTIAL THROMBOPLASTIN TIME (BEAKER) (test 56.5 seconds 22.5-36.0 mquw=595) RAD, FOOT, MIN 3 VIEWS, [id number] 08:43:00Reason for exam:->Foot ulcer - r/o osteoFINAL [...] nuclear medicine or MRI. Signed: Shantanu Ryan MDReport Verified Date/Time: 03/03/2018 08:43:54 Reading Location: [facility] Radiology Reading Room [id number] 08:24:00 Test Item Value Reference Range Comments PARTIAL THROMBOPLASTIN TIME (BEAKER) (test 67.3 seconds 22.5-36.0 xxqv=112) [id number] 06:15:00 Test Item Value Reference Range Comments PARTIAL THROMBOPLASTIN TIME (BEAKER) (test 180.5 seconds 22.5-36.0 pcmh=889) Prior to initiating heparinBASIC METABOLIC [id number] 04:42:00 Test Item Value Reference Range Comments SODIUM (BEAKER) (test 139 meq/L 136-145 wpdk=396) POTASSIUM (BEAKER) (test 3.6 meq/L 3.5-5.1 phuy=335) CHLORIDE (BEAKER) (test 108 meq/L 98-107 zjbh=058) CO2 (BEAKER) (test 25 meq/L 22-29 fkkr=589) BLOOD UREA NITROGEN 8 mg/dL 7-21 (BEAKER) (test bwjn=025) CREATININE (BEAKER) (test 0.77 mg/dL 0.57-1.25 wztn=755) GLUCOSE RANDOM (BEAKER) 95 mg/dL 70-105 (test oycl=836) CALCIUM (BEAKER) (test 8.7 mg/dL 8.4-10.2 eeco=143) EGFR (BEAKER) (test 126 mL/min/1.73 sq m ESTIMATED GFR IS NOT qedf=5567) ACCURATE CREATININE CLEARANCE IN PREDICTING GLOMERULAR FILTRATION RATE. ESTIMATED GFR IS NOT APPLICABLE FOR DIALYSIS PATIENTS. CBC W/PLT COUNT & AUTO [id number] 04:31:00 Test Item Value Reference Range Comments WHITE BLOOD CELL COUNT (BEAKER) (test tjqk=283) 9.4 K/ L 3.5-10.5 RED BLOOD CELL COUNT (BEAKER) (test ujoc=500) 4.41 M/ L 4.63-6.08 HEMOGLOBIN (BEAKER) (test tcmc=109) 13.4 GM/DL 13.7-17.5 HEMATOCRIT (BEAKER) (test ynno=780) 39.5 % 40.1-51.0 MEAN CORPUSCULAR VOLUME (BEAKER) (test jlrq=427) 89.6 fL 79.0-92.2 MEAN CORPUSCULAR HEMOGLOBIN (BEAKER) (test 30.4 pg 25.7-32.2 sngh=940) MEAN CORPUSCULAR HEMOGLOBIN CONC (BEAKER) (test 33.9 GM/DL 32.3-36.5 nzoj=640) RED CELL DISTRIBUTION WIDTH (BEAKER) (test 13.4 % 11.6-14.4 rqki=691) PLATELET COUNT (BEAKER) (test zone=949) 241 K/CU MM 150-450 MEAN PLATELET VOLUME (BEAKER) (test vbni=532) 10.2 fL 9.4-12.4 NUCLEATED RED BLOOD CELLS (BEAKER) (test 0 /100 WBC 0-0 rnin=820) NEUTROPHILS RELATIVE PERCENT (BEAKER) (test 51 % lsjf=528) LYMPHOCYTES RELATIVE PERCENT (BEAKER) (test 38 % faql=743) MONOCYTES RELATIVE PERCENT (BEAKER) (test 7 % xerg=076) EOSINOPHILS RELATIVE PERCENT (BEAKER) (test 4 % ragx=764) BASOPHILS RELATIVE PERCENT (BEAKER) (test 0 % ovfh=619) NEUTROPHILS ABSOLUTE COUNT (BEAKER) (test 4.77 K/ L 1.78-5.38 rkpi=598) LYMPHOCYTES ABSOLUTE COUNT (BEAKER) (test 3.51 K/ L 1.32-3.57 qpyv=534) MONOCYTES ABSOLUTE COUNT (BEAKER) (test 0.67 K/ L 0.30-0.82 oolc=671) EOSINOPHILS ABSOLUTE COUNT (BEAKER) (test 0.37 K/ L 0.04-0.54 lxgx=749) BASOPHILS ABSOLUTE COUNT (BEAKER) (test 0.03 K/ L 0.01-0.08 iptd=895) IMMATURE GRANULOCYTES-RELATIVE PERCENT (BEAKER) 0 % 0-1 (test bjfx=4165) [id number] 22:31:00 Test Item Value Reference Range Comments PARTIAL THROMBOPLASTIN TIME (BEAKER) (test 31.2 seconds 22.5-36.0 vdsa=044) Prior to initiating heparinBASIC METABOLIC [id number] 18:30:00 Test Item Value Reference Range Comments SODIUM (BEAKER) (test 139 meq/L 136-145 owkp=141) POTASSIUM (BEAKER) (test 3.6 meq/L 3.5-5.1 thos=176) CHLORIDE (BEAKER) (test 106 meq/L 98-107 xavk=157) CO2 (BEAKER) (test 21 meq/L 22-29 oyom=272) BLOOD UREA NITROGEN 8 mg/dL 7-21 (BEAKER) (test uxkq=106) CREATININE (BEAKER) (test 0.83 mg/dL 0.57-1.25 noqe=642) GLUCOSE RANDOM (BEAKER) 110 mg/dL 70-105 (test hkll=389) CALCIUM (BEAKER) (test 9.7 mg/dL 8.4-10.2 frup=406) EGFR (BEAKER) (test 116 mL/min/1.73 sq m ESTIMATED GFR IS NOT rtdv=6332) ACCURATE CREATININE CLEARANCE IN PREDICTING GLOMERULAR FILTRATION RATE. ESTIMATED GFR IS NOT APPLICABLE FOR DIALYSIS PATIENTS. C-REACTIVE [id number] 18:30:00 Test Item Value Reference Range Comments C-REACTIVE PROTEIN (BEAKER) (test kpbo=729) 0.04 mg/dL 0.00-0.50 CBC W/PLT COUNT & AUTO [id number] 18:13:00 Test Item Value Reference Range Comments WHITE BLOOD CELL COUNT (BEAKER) (test kzca=485) 10.2 K/ L 3.5-10.5 RED BLOOD CELL COUNT (BEAKER) (test dmon=664) 4.65 M/ L 4.63-6.08 HEMOGLOBIN (BEAKER) (test vijw=241) 14.3 GM/DL 13.7-17.5 HEMATOCRIT (BEAKER) (test phzb=418) 40.7 % 40.1-51.0 MEAN CORPUSCULAR VOLUME (BEAKER) (test yxhr=665) 87.5 fL 79.0-92.2 MEAN CORPUSCULAR HEMOGLOBIN (BEAKER) (test 30.8 pg 25.7-32.2 xclo=756) MEAN CORPUSCULAR HEMOGLOBIN CONC (BEAKER) (test 35.1 GM/DL 32.3-36.5 befa=914) RED CELL DISTRIBUTION WIDTH (BEAKER) (test 13.3 % 11.6-14.4 oapt=769) PLATELET COUNT (BEAKER) (test pldt=200) 238 K/CU MM 150-450 MEAN PLATELET VOLUME (BEAKER) (test mdbk=364) 10.1 fL 9.4-12.4 NUCLEATED RED BLOOD CELLS (BEAKER) (test 0 /100 WBC 0-0 evld=623) NEUTROPHILS RELATIVE PERCENT (BEAKER) (test 64 % hyoc=033) LYMPHOCYTES RELATIVE PERCENT (BEAKER) (test 26 % jlzy=393) MONOCYTES RELATIVE PERCENT (BEAKER) (test 7 % rfho=853) EOSINOPHILS RELATIVE PERCENT (BEAKER) (test 2 % kgse=466) BASOPHILS RELATIVE PERCENT (BEAKER) (test 0 % rhsv=063) NEUTROPHILS ABSOLUTE COUNT (BEAKER) (test 6.54 K/ L 1.78-5.38 klpw=493) LYMPHOCYTES ABSOLUTE COUNT (BEAKER) (test 2.64 K/ L 1.32-3.57 eesq=885) MONOCYTES ABSOLUTE COUNT (BEAKER) (test 0.71 K/ L 0.30-0.82 ltlo=421) EOSINOPHILS ABSOLUTE COUNT (BEAKER) (test 0.21 K/ L 0.04-0.54 dnhv=076) BASOPHILS ABSOLUTE COUNT (BEAKER) (test 0.04 K/ L 0.01-0.08 hsxc=091) IMMATURE GRANULOCYTES-RELATIVE PERCENT (BEAKER) 0 % 0-1 (test uaox=9126) TISSUE [id number] 14:18:00Surgical Pathology Report Case: [id number] Authorizing Provider: Greta Urban MD Collected: 09/25/2017 1609 Ordering Location: [facility] Received: 09/26/2017 0819 PERIOPERATIVE SERVICES Pathologist: Dejan Martin MD Specimens: A) - Plaque, LEFT FEMORAL PLAQUE B) -Plaque, RIGHT FEMORAL PLAQUE A. ARTERY, LEFT FEMORAL, ENDARTERECTOMY:CALCIFIC ATHEROSCLEROTIC PLAQUEB. ARTERY, RIGHT FEMORAL, ENDARTERECTOMY:CALCIFIC ATHEROSCLEROTIC PLAQUE WITH ATTACHED FIBRIN THROMBUS Signing Pathologist Direct Phone Line: [phone] signed by Dejan Martin MD on 09/30/2017 at 2:18 [id number]; [id number]. Left femoral plaque. B. Right femoral plaque Specimen A: Received in saline labeled "plaque", description "left femoral plaque" is a 2.5 x 2.5 x 0.5 cm aggregate of sinha-white to yellow-ferreira, rubbery fibrous tissue. Sectioning reveals focal calcification. Neonatal Critical Care Nurse sections are submitted in cassette A1 for decalcification.Specimen B: Received in saline labeled "plaque", description "right femoral plaque" are three irregular, sinha-white to yellow-ferreira, rubbery portions of fibrous tissue measuring 1.5 x 1.5 x 0.2 cm in aggregate. Sectioning reveals focal calcification. The specimen is entirely submitted in cassette B1 for decalcification. [id number]/[id number] 00:38:00 Test Item Value Reference Range Comments MAGNESIUM (BEAKER) (test tvgi=547) 2.1 mg/dL 1.6-2.6 BASIC METABOLIC [id number] 00:38:00 Test Item Value Reference Range Comments SODIUM (BEAKER) (test 136 meq/L 136-145 fkhi=476) POTASSIUM (BEAKER) (test 3.8 meq/L 3.5-5.1 obxd=943) CHLORIDE (BEAKER) (test 104 meq/L 98-107 jgzw=173) CO2 (BEAKER) (test 26 meq/L 22-29 tslp=231) BLOOD UREA NITROGEN 11 mg/dL 7-21 (BEAKER) (test zmuz=014) CREATININE (BEAKER) (test 0.92 mg/dL 0.57-1.25 gjac=726) GLUCOSE RANDOM (BEAKER) 99 mg/dL 70-105 (test ldas=678) CALCIUM (BEAKER) (test 8.5 mg/dL 8.4-10.2 ewrr=736) EGFR (BEAKER) (test 103 mL/min/1.73 sq m ESTIMATED GFR IS NOT attt=1677) ACCURATE CREATININE CLEARANCE IN PREDICTING GLOMERULAR FILTRATION RATE. ESTIMATED GFR IS NOT APPLICABLE FOR DIALYSIS PATIENTS. CBC W/PLT COUNT & AUTO [id number] 13:39:00 Test Item Value Reference Range Comments WHITE BLOOD CELL COUNT 14.6 K/ L 3.5-10.5 (BEAKER) (test uvnc=034) RED BLOOD CELL COUNT (BEAKER) 3.59 M/ L 4.63-6.08 (test knvc=486) HEMOGLOBIN (BEAKER) (test 11.0 GM/DL 13.7-17.5 zkgr=587) HEMATOCRIT (BEAKER) (test 32.8 % 40.1-51.0 zgth=982) MEAN CORPUSCULAR VOLUME 91.4 fL 79.0-92.2 (BEAKER) (test zqrz=404) MEAN CORPUSCULAR HEMOGLOBIN 30.6 pg 25.7-32.2 (BEAKER) (test quao=368) MEAN CORPUSCULAR HEMOGLOBIN 33.5 GM/DL 32.3-36.5 CONC (BEAKER) (test vydh=954) RED CELL DISTRIBUTION WIDTH 12.9 % 11.6-14.4 (BEAKER) (test tdwu=391) PLATELET COUNT (BEAKER) (test 143 K/CU MM 150-450 xjxq=064) MEAN PLATELET VOLUME (BEAKER) 10.8 fL 9.4-12.4 (test xvge=337) NUCLEATED RED BLOOD CELLS 0 /100 WBC 0-0 (BEAKER) (test edyd=195) NEUTROPHILS RELATIVE PERCENT 66 % This is an appended report. (BEAKER) (test tcdq=058) These results have been appended to a previously final verified report. LYMPHOCYTES RELATIVE PERCENT 20 % This is an appended report. (BEAKER) (test miob=244) These results have been appended to a previously final verified report. MONOCYTES RELATIVE PERCENT 11 % This is an appended report. (BEAKER) (test qxav=454) These results have been appended to a previously final verified report. EOSINOPHILS RELATIVE PERCENT 3 % This is an appended report. (BEAKER) (test kymk=476) These results have been appended to a previously final verified report. BASOPHILS RELATIVE PERCENT 0 % This is an appended report. (BEAKER) (test pyev=818) These results have been appended to a previously final verified report. NEUTROPHILS ABSOLUTE COUNT 9.59 K/ L 1.78-5.38 This is an appended report. (BEAKER) (test wcga=961) These results have been appended to a previously final verified report. LYMPHOCYTES ABSOLUTE COUNT 2.96 K/ L 1.32-3.57 This is an appended report. (BEAKER) (test tars=113) These results have been appended to a previously final verified report. MONOCYTES ABSOLUTE COUNT 1.59 K/ L 0.30-0.82 This is an appended report. (BEAKER) (test qshl=539) These results have been appended to a previously final verified report. EOSINOPHILS ABSOLUTE COUNT 0.37 K/ L 0.04-0.54 This is an appended report. (BEAKER) (test qewp=661) These results have been appended to a previously final verified report. BASOPHILS ABSOLUTE COUNT 0.04 K/ L 0.01-0.08 This is an appended report. (BEAKER) (test ajru=577) These results have been appended to a previously final verified report. IMMATURE GRANULOCYTES-RELATIVE 1 % 0-1 This is an appended report. PERCENT (BEAKER) (test These results have been tayv=7657) appended to a previously final verified report. POCT-GLUCOSE [id number] 09:12:00 Test Item Value Reference Range Comments POC-GLUCOSE METER (BEAKER) 81 mg/dL 70-110 TESTED AT [address] (test rmif=7108) [facility] [address] BASIC METABOLIC [id number] 05:02:00 Test Item Value Reference Range Comments SODIUM (BEAKER) (test 136 meq/L 136-145 odaa=594) POTASSIUM (BEAKER) (test 3.8 meq/L 3.5-5.1 hxxw=866) CHLORIDE (BEAKER) (test 105 meq/L 98-107 fwya=229) CO2 (BEAKER) (test 25 meq/L 22-29 vmwv=994) BLOOD UREA NITROGEN 9 mg/dL 7-21 (BEAKER) (test hjha=882) CREATININE (BEAKER) (test 0.82 mg/dL 0.57-1.25 fsug=665) GLUCOSE RANDOM (BEAKER) 89 mg/dL 70-105 (test elhv=544) CALCIUM (BEAKER) (test 8.3 mg/dL 8.4-10.2 ogsk=403) EGFR (BEAKER) (test 117 mL/min/1.73 sq m ESTIMATED GFR IS NOT dkui=0427) ACCURATE CREATININE CLEARANCE IN PREDICTING GLOMERULAR FILTRATION RATE. ESTIMATED GFR IS NOT APPLICABLE FOR DIALYSIS PATIENTS. POCT-GLUCOSE [id number] 21:22:00 Test Item Value Reference Range Comments POC-GLUCOSE METER (BEAKER) 121 mg/dL 70-110 TESTED AT [facility] [address] [facility] (test xmbe=4267) [facility] [address] [id number] 04:30:00 Test Item Value Reference Range Comments PHOSPHORUS (BEAKER) (test oijw=842) 2.7 mg/dL 2.3-4.7 [id number] 04:30:00 Test Item Value Reference Range Comments MAGNESIUM (BEAKER) (test isye=104) 2.5 mg/dL 1.6-2.6 BASIC METABOLIC [id number] 04:30:00 Test Item Value Reference Range Comments SODIUM (BEAKER) (test 134 meq/L 136-145 ebck=908) POTASSIUM (BEAKER) (test 3.8 meq/L 3.5-5.1 qjss=236) CHLORIDE (BEAKER) (test 104 meq/L 98-107 tkcq=783) CO2 (BEAKER) (test 22 meq/L 22-29 fzxi=049) BLOOD UREA NITROGEN 13 mg/dL 7-21 (BEAKER) (test lfrf=020) CREATININE (BEAKER) (test 0.96 mg/dL 0.57-1.25 wjro=821) GLUCOSE RANDOM (BEAKER) 115 mg/dL 70-105 (test qzcb=810) CALCIUM (BEAKER) (test 8.2 mg/dL 8.4-10.2 twzb=283) EGFR (BEAKER) (test 98 mL/min/1.73 sq m ESTIMATED GFR IS NOT whbg=4094) ACCURATE CREATININE CLEARANCE IN PREDICTING GLOMERULAR FILTRATION RATE. ESTIMATED GFR IS NOT APPLICABLE FOR DIALYSIS PATIENTS. LACTIC ACID, ARTERIAL, WHOLE [id number] 04:15:00 Test Item Value Reference Range Comments LACTATE BLOOD ARTERIAL (2) (BEAKER) (test 1.0 mmol/L 0.5-2.2 pxqz=8794) Effective 09/27/2015: Units/Reference Range ChangeNew: 0.5-2.2 mmol/L Previous: 5 -20 mg/dLCBC W/PLT COUNT & AUTO [id number] 04:12:00 Test Item Value Reference Range Comments WHITE BLOOD CELL COUNT (BEAKER) (test tfls=567) 16.5 K/ L 3.5-10.5 RED BLOOD CELL COUNT (BEAKER) (test scyt=319) 4.08 M/ L 4.63-6.08 HEMOGLOBIN (BEAKER) (test eduv=605) 12.5 GM/DL 13.7-17.5 HEMATOCRIT (BEAKER) (test hhyl=130) 36.9 % 40.1-51.0 MEAN CORPUSCULAR VOLUME (BEAKER) (test nruk=367) 90.4 fL 79.0-92.2 MEAN CORPUSCULAR HEMOGLOBIN (BEAKER) (test 30.6 pg 25.7-32.2 grwk=032) MEAN CORPUSCULAR HEMOGLOBIN CONC (BEAKER) (test 33.9 GM/DL 32.3-36.5 mcys=403) RED CELL DISTRIBUTION WIDTH (BEAKER) (test 12.8 % 11.6-14.4 enuu=716) PLATELET COUNT (BEAKER) (test fysa=452) 183 K/CU MM 150-450 MEAN PLATELET VOLUME (BEAKER) (test adgr=649) 10.2 fL 9.4-12.4 NUCLEATED RED BLOOD CELLS (BEAKER) (test 0 /100 WBC 0-0 edcf=111) NEUTROPHILS RELATIVE PERCENT (BEAKER) (test 80 % thux=074) LYMPHOCYTES RELATIVE PERCENT (BEAKER) (test 11 % dsaa=716) MONOCYTES RELATIVE PERCENT (BEAKER) (test 8 % gkjb=545) EOSINOPHILS RELATIVE PERCENT (BEAKER) (test 1 % mnmg=202) BASOPHILS RELATIVE PERCENT (BEAKER) (test 0 % hzdw=154) NEUTROPHILS ABSOLUTE COUNT (BEAKER) (test 13.15 K/ L 1.78-5.38 dlgj=220) LYMPHOCYTES ABSOLUTE COUNT (BEAKER) (test 1.85 K/ L 1.32-3.57 gpow=080) MONOCYTES ABSOLUTE COUNT (BEAKER) (test 1.36 K/ L 0.30-0.82 idtc=057) EOSINOPHILS ABSOLUTE COUNT (BEAKER) (test 0.10 K/ L 0.04-0.54 yqsm=767) BASOPHILS ABSOLUTE COUNT (BEAKER) (test 0.03 K/ L 0.01-0.08 hizv=798) IMMATURE GRANULOCYTES-RELATIVE PERCENT (BEAKER) 0 % 0-1 (test gbrb=4957) CALCIUM, [id number] 03:51:00 Test Item Value Reference Range Comments CALCIUM IONIZED (BEAKER) (test hric=492) 1.08 mmol/L 1.12-1.27 PH, BLOOD (BEAKER) (test cfao=1261) 7.41 POCT-GLUCOSE [id number] 22:24:00 Test Item Value Reference Range Comments POC-GLUCOSE METER (BEAKER) 159 mg/dL 70-110 TESTED AT [address] (test trai=9080) [facility] [address] RAD, CHEST, 1 VIEW, NON [id number] 19:01:00Reason for exam:->central line placement Should this [...] MDReport Verified Date/Time: 2017 19:01:26 Reading Location: [address] Consult Reading Room [id number] 18:09:00 Test Item Value Reference Range Comments PHOSPHORUS (BEAKER) (test kghu=424) 3.1 mg/dL 2.3-4.7 [id number] 18:09:00 Test Item Value Reference Range Comments MAGNESIUM (BEAKER) (test ejpu=818) 1.7 mg/dL 1.6-2.6 BASIC METABOLIC [id number] 18:09:00 Test Item Value Reference Range Comments SODIUM (BEAKER) (test 137 meq/L 136-145 rzpd=321) POTASSIUM (BEAKER) (test 3.9 meq/L 3.5-5.1 lmxy=773) CHLORIDE (BEAKER) (test 108 meq/L 98-107 onrl=287) CO2 (BEAKER) (test 23 meq/L 22-29 iwkr=341) BLOOD UREA NITROGEN 14 mg/dL 7-21 (BEAKER) (test gvml=700) CREATININE (BEAKER) (test 0.95 mg/dL 0.57-1.25 bzty=744) GLUCOSE RANDOM (BEAKER) 231 mg/dL 70-105 (test zugk=012) CALCIUM (BEAKER) (test 8.1 mg/dL 8.4-10.2 zzej=359) EGFR (BEAKER) (test 99 mL/min/1.73 sq m ESTIMATED GFR IS NOT wane=2926) ACCURATE CREATININE CLEARANCE IN PREDICTING GLOMERULAR FILTRATION RATE. ESTIMATED GFR IS NOT APPLICABLE FOR DIALYSIS PATIENTS. PROTHROMBIN [id number] 18:01:00 Test Item Value Reference Range Comments PROTIME (BEAKER) (test zqom=116) 15.8 seconds 11.7-14.7 INR (BEAKER) (test nals=342) 1.3 <=5.9 RECOMMENDED COUMADIN/WARFARIN INR THERAPY RANGESSTANDARD DOSE: 2.0 - 3.0 Includes: PROPHYLAXIS forvenous thrombosis, systemic embolization; TREATMENT for venous thrombosis and/or pulmonary embolus.HIGH RISK: Target INR is 2.5-3.5 for patients with mechanical heart valves.[id number] 18:01:00 Test Item Value Reference Range Comments FIBRINOGEN LEVEL (BEAKER) (test lvwn=589) 354 mg/dl 225-434 [id number] 18:01:00 Test Item Value Reference Range Comments PARTIAL THROMBOPLASTIN TIME (BEAKER) (test 34.5 seconds 22.5-36.0 boac=645) CBC W/PLT COUNT & AUTO [id number] 17:52:00 Test Item Value Reference Range Comments WHITE BLOOD CELL COUNT (BEAKER) (test nyrh=914) 21.1 K/ L 3.5-10.5 RED BLOOD CELL COUNT (BEAKER) (test fdnd=069) 4.68 M/ L 4.63-6.08 HEMOGLOBIN (BEAKER) (test xure=572) 14.3 GM/DL 13.7-17.5 HEMATOCRIT (BEAKER) (test dftf=482) 42.8 % 40.1-51.0 MEAN CORPUSCULAR VOLUME (BEAKER) (test dlgm=375) 91.5 fL 79.0-92.2 MEAN CORPUSCULAR HEMOGLOBIN (BEAKER) (test 30.6 pg 25.7-32.2 kwyp=844) MEAN CORPUSCULAR HEMOGLOBIN CONC (BEAKER) (test 33.4 GM/DL 32.3-36.5 aorn=983) RED CELL DISTRIBUTION WIDTH (BEAKER) (test 13.0 % 11.6-14.4 ygdf=794) PLATELET COUNT (BEAKER) (test whqj=761) 216 K/CU MM 150-450 MEAN PLATELET VOLUME (BEAKER) (test mqch=240) 10.3 fL 9.4-12.4 NUCLEATED RED BLOOD CELLS (BEAKER) (test 0 /100 WBC 0-0 uqzg=746) NEUTROPHILS RELATIVE PERCENT (BEAKER) (test 65 % qlmr=134) LYMPHOCYTES RELATIVE PERCENT (BEAKER) (test 24 % evyd=815) MONOCYTES RELATIVE PERCENT (BEAKER) (test 7 % ctgs=091) EOSINOPHILS RELATIVE PERCENT (BEAKER) (test 3 % mwyi=165) BASOPHILS RELATIVE PERCENT (BEAKER) (test 0 % anrb=710) NEUTROPHILS ABSOLUTE COUNT (BEAKER) (test 13.75 K/ L 1.78-5.38 wdzk=257) LYMPHOCYTES ABSOLUTE COUNT (BEAKER) (test 4.96 K/ L 1.32-3.57 iwdu=473) MONOCYTES ABSOLUTE COUNT (BEAKER) (test 1.37 K/ L 0.30-0.82 oytz=967) EOSINOPHILS ABSOLUTE COUNT (BEAKER) (test 0.69 K/ L 0.04-0.54 qqji=251) BASOPHILS ABSOLUTE COUNT (BEAKER) (test 0.05 K/ L 0.01-0.08 mzwg=856) IMMATURE GRANULOCYTES-RELATIVE PERCENT (BEAKER) 1 % 0-1 (test qmvc=8562) HEMOGLOBIN [id number] 14:43:00 Test Item Value Reference Range Comments HEMOGLOBIN A1C (BEAKER) (test erpn=436) 5.6 % 4.3-6.1 BASIC METABOLIC [id number] 12:35:00 Test Item Value Reference Range Comments SODIUM (BEAKER) (test 141 meq/L 136-145 oxlq=027) POTASSIUM (BEAKER) (test 4.1 meq/L 3.5-5.1 qnbn=606) CHLORIDE (BEAKER) (test 105 meq/L 98-107 oxri=193) CO2 (BEAKER) (test 28 meq/L 22-29 qwsi=081) BLOOD UREA NITROGEN 9 mg/dL 7-21 (BEAKER) (test cshq=392) CREATININE (BEAKER) (test 0.82 mg/dL 0.57-1.25 mzst=277) GLUCOSE RANDOM (BEAKER) 89 mg/dL 70-105 (test rgyx=467) CALCIUM (BEAKER) (test 9.5 mg/dL 8.4-10.2 ysfa=488) EGFR (BEAKER) (test 117 mL/min/1.73 sq m ESTIMATED GFR IS NOT vaft=0673) ACCURATE CREATININE CLEARANCE IN PREDICTING GLOMERULAR FILTRATION RATE. ESTIMATED GFR IS NOT APPLICABLE FOR DIALYSIS PATIENTS. PROTHROMBIN [id number] 12:32:00 Test Item Value Reference Range Comments PROTIME (BEAKER) (test potf=270) 13.7 seconds 11.7-14.7 INR (BEAKER) (test gjxe=175) 1.1 <=5.9 RECOMMENDED COUMADIN/WARFARIN INR THERAPY RANGESSTANDARD DOSE: 2.0 - 3.0 Includes: PROPHYLAXIS forvenous thrombosis, systemic embolization; TREATMENT for venous thrombosis and/or pulmonary embolus.HIGH RISK: Target INR is 2.5-3.5 for patients with mechanical heart valves.RAD, CHEST, 2 [id number] 12:21: 00Reason for Exam:->Pre-OpFINAL REPORT Chest two views INDICATION: Preoperative exam. Aortic iliac disease, femoral popliteal artery atherosclerosis COMPARISON: None available IMPRESSION: There is no focal consolidation, vascular congestion, pleural effusion, or pneumothorax. The cardiomediastinal silhouette is unremarkable. There are mild degenerative spine and shoulder changes. Signed: Yaw Lay MDReport Verified Date/Time: 09/16/2017 12:21:59 Reading Location: [facility] Reading Room CBC W/ PLT COUNT & AUTO [id number] 12:19:00 Test Item Value Reference Range Comments WHITE BLOOD CELL COUNT (BEAKER) (test qeya=607) 8.6 K/ L 3.5-10.5 RED BLOOD CELL COUNT (BEAKER) (test rlwz=158) 5.05 M/ L 4.63-6.08 HEMOGLOBIN (BEAKER) (test laqs=616) 15.4 GM/DL 13.7-17.5 HEMATOCRIT (BEAKER) (test eenk=927) 47.1 % 40.1-51.0 MEAN CORPUSCULAR VOLUME (BEAKER) (test bgxk=284) 93.3 fL 79.0-92.2 MEAN CORPUSCULAR HEMOGLOBIN (BEAKER) (test 30.5 pg 25.7-32.2 cfwo=640) MEAN CORPUSCULAR HEMOGLOBIN CONC (BEAKER) (test 32.7 GM/DL 32.3-36.5 crhb=121) RED CELL DISTRIBUTION WIDTH (BEAKER) (test 13.0 % 11.6-14.4 drrk=851) PLATELET COUNT (BEAKER) (test llrz=546) 272 K/CU MM 150-450 MEAN PLATELET VOLUME (BEAKER) (test mymk=538) 10.6 fL 9.4-12.4 NUCLEATED RED BLOOD CELLS (BEAKER) (test 0 /100 WBC 0-0 jpxi=954) NEUTROPHILS RELATIVE PERCENT (BEAKER) (test 55 % izzy=126) LYMPHOCYTES RELATIVE PERCENT (BEAKER) (test 33 % wdmx=531) MONOCYTES RELATIVE PERCENT (BEAKER) (test 6 % ryla=514) EOSINOPHILS RELATIVE PERCENT (BEAKER) (test 5 % pzwx=204) BASOPHILS RELATIVE PERCENT (BEAKER) (test 0 % gzqd=584) NEUTROPHILS ABSOLUTE COUNT (BEAKER) (test 4.70 K/ L 1.78-5.38 zkvc=624) LYMPHOCYTES ABSOLUTE COUNT (BEAKER) (test 2.83 K/ L 1.32-3.57 ssbq=783) MONOCYTES ABSOLUTE COUNT (BEAKER) (test 0.51 K/ L 0.30-0.82 roqn=923) EOSINOPHILS ABSOLUTE COUNT (BEAKER) (test 0.46 K/ L 0.04-0.54 eptx=777) BASOPHILS ABSOLUTE COUNT (BEAKER) (test 0.03 K/ L 0.01-0.08 kahp=408) IMMATURE GRANULOCYTES-RELATIVE PERCENT (BEAKER) 0 % 0-1 (test myfl=2413)
[2018-12-14] MEDS ORDERED: FENTANYL 25 MCG/PATCH TD ONE (15:42)
[2018-12-14] MEDS ORDERED: FENTANYL CITR 100 MCG/2 ML ONE (15:43)
--- NOTE | 2018-12-14 15:53 | EDPHYS ---
Physician Documentation [facility] Name: Noé Garcia Age: 58 yrs Sex: Male : 1960 Arrival Date: 12/14/2018 Time: 13:31 Bed 14 Private MD: Hiren Jeff L ED Physician Raul Davila HPI: 12/14 15:55 This 58 yrs old Black Male presents to ER via Wheelchair with complaints of Abdominal snw Pain. 15:55 The patient presents with abdominal pain in the upper abdomen, in the right upper snw quadrant. Onset: The symptoms/episode began/occurred today. The symptoms do not radiate. Associated signs and symptoms: none. The symptoms are described as stabbing. Severity of pain: At its worst the pain was moderate severe. The patient has experienced similar episodes in the past. discharged Friday from [facility], on Lovenox BID, no GI bleeding, no gingival bleeding. Historical: - Allergies: 13:38 No Known Allergies; aa5 - Home Meds: 15:36 amlodipine 5 mg tab 1 tab once daily [Active]; cilostazol 100 mg Oral tab 1 tab 2 times tw2 per day [Active]; clopidogrel 75 mg Oral tab 1 tab once daily [Active]; lisinopril-hydrochlorothiazide 20-25 mg Oral tab 1 tab once daily [Active]; tramadol 50 mg Oral tab 1 tab every 4 hours [Active]; simvastatin 40 mg Oral tab 1 tab once daily [Active]; - PMHx: 13:37 Cirrhosis; Hypertension; aa5 13:38 Liver cancer; aa5 - Immunization history:: Adult Immunizations unknown. - Social history:: Smoking status: Patient/guardian denies using tobacco. - Ebola Screening: : No symptoms or risks identified at this time. ROS: 15:40 Constitutional: Negative for fever, chills, and weight loss, Eyes: Negative for injury, snw pain, redness, and discharge, ENT: Negative for injury, pain, and discharge, Neck: Negative for injury, pain, and swelling, Cardiovascular: Negative for chest pain, palpitations, and edema, Respiratory: Negative for shortness of breath, cough, wheezing, and pleuritic chest pain, Abdomen/GI: Positive for abdominal pain, denies nausea, vomiting, diarrhea, and constipation, Back: Negative for injury and pain, : Negative for injury, bleeding, discharge, and swelling, MS/Extremity: Negative for injury and deformity, Skin: Negative for injury, rash, and discoloration, Neuro: Negative for headache, weakness, numbness, tingling, and seizure. Exam: 15:25 Head/Face: Normocephalic, atraumatic. Eyes: Pupils equal round and reactive to light, snw extra-ocular motions intact. Lids and lashes normal. Conjunctiva and sclera are mildly icteric and not injected. Cornea within normal limits. Periorbital areas with no swelling, redness, or edema. ENT: Nares patent. No nasal discharge, no septal abnormalities noted. Tympanic membranes are normal and external auditory canals are clear. Oropharynx with no redness, swelling, or masses, exudates, or evidence of obstruction, uvula midline. Mucous membranes moist. Neck: Trachea midline, no thyromegaly or masses palpated, and no cervical lymphadenopathy. Supple, full range of motion without nuchal rigidity, or vertebral point tenderness. No Meningismus. Chest/axilla: Normal chest wall appearance and motion. Nontender with no deformity. No lesions are appreciated. Cardiovascular: Regular rate and rhythm with a normal S1 and S2. No gallops, murmurs, or rubs. Normal PMI, no JVD. No pulse deficits. Respiratory: Lungs have equal breath sounds bilaterally, clear to auscultation and percussion. No rales, rhonchi or wheezes noted. No increased work of breathing, no retractions or nasal flaring. Abdomen/GI: Soft, tender, with normal bowel sounds. No distension or tympany. No guarding or rebound. Back: No spinal tenderness. No costovertebral tenderness. Full range of motion. Skin: Warm, dry with normal turgor. Normal color with no rashes, no lesions, and no evidence of cellulitis. MS/ Extremity: Pulses equal, no cyanosis. Neurovascular intact. Full, normal range of motion. Neuro: Awake and alert, GCS 15, oriented to person, place, time, and situation. Cranial nerves II-XII grossly intact. Motor strength 5/5 in all extremities. Sensory grossly intact. Cerebellar exam normal. Normal gait. Psych: Awake, alert, with orientation to person, place and time. Behavior, mood, and affect are within normal limits. 15:25 Constitutional: The patient appears awake, frail, listless, uncomfortable. snw Vital Signs: 13:38 BP 94 / 55; Pulse 115; Resp 18 S; Temp 99.1(O); Pulse Ox 100% on R/A; Weight 53.07 kg aa5 (R); Height 5 ft. 7 in. (170.18 cm) (R); Pain 10/10; 15:34 BP 86 / 70; Pulse 100; Resp 17; Pulse Ox 100% on R/A; tw2 15:45 BP 110 / 56; Pulse 101; Resp 17; Pulse Ox 100% on R/A; tw2 16:11 BP 106 / 64; Pulse 98; Resp 17; Pulse Ox 100% ; Pain 7/10; tw2 13:38 Body Mass Index 18.32 (53.07 kg, 170.18 cm) aa5 MDM: 15:20 Patient medically screened. [facility] 15:53 Data reviewed: vital signs, nurses notes. Data interpreted: Pulse oximetry: on room air snw is 100 %. Interpretation: normal. Counseling: I had a detailed discussion with the patient and/or guardian regarding: the historical points, exam findings, and any diagnostic results supporting the discharge/admit diagnosis, the need for outpatient follow up, to return to the emergency department if symptoms worsen or persist or if there are any questions or concerns that arise at home. Medication response: fentanyl - improved. Response to treatment: the patient's symptoms have markedly improved after treatment. Special discussion: Based on the patient's Hx, exam, and Dx evaluation, there is no indication for emergent surgery or inpatient Tx. It is understood by the patient/guardian that if the Sx's persist or worsen they need to return immediately for re-evaluation. Based on the history and exam findings, there is no indication for further emergent testing or inpatient evaluation. I discussed with the patient/guardian the need to see the primary care provider for further evaluation of the symptoms. Administered Medications: 15:30 Drug: fentaNYL Patch (25 mcg/hr) 1 patches {Note: upper right back.} Route: tw2 Transdermal; Site: affected area; 16:15 Follow up: Response: No adverse reaction; Pain is decreased tw2 15:33 Drug: fentaNYL (PF) 25 mcg Route: IM; Site: right deltoid; tw2 16:15 Follow up: Response: No adverse reaction; Pain is decreased tw2 Disposition: 16:17 Co-signature as Attending Physician, Raul Davila MD. rn Disposition: 12/14/18 15:51 Discharged to Home. Impression: Unspecified abdominal pain. - Condition is Stable. - Discharge Instructions: Abdominal Pain, Adult, Bleeding Precautions When on Anticoagulant Therapy, Form - Blood Pressure Record Sheet. - Medication Reconciliation Form, Thank You Letter, Antibiotic Education, Prescription Opioid Use form. - Follow up: Hiren Jeff MD; When: as scheduled; Reason: Recheck today's complaints, Continuance of care, Re-evaluation by your physician. Follow up: Emergency Department; When: As needed; Reason: Worsening of condition. Signatures: Jordi Sepulveda MD MD cha Therrien, Shelly, THANG-C [employer] SEC[employer]ITY ADMINISTRATOR-Csnw Raul Davila MD MD rn Calderon, Audri, RN RN aa5 Lilia Reed RN RN tw2 Corrections: (The following items were deleted from the chart) 15:40 15:25 Constitutional: The patient appears alert, awake, uncomfortable, snw snw 15:40 15:25 Head/Face: Normocephalic, atraumatic. Eyes: Pupils equal round and reactive to snw light, extra-ocular motions intact. Lids and lashes normal. Conjunctiva and sclera are non-icteric and not injected. Cornea within normal limits. Periorbital areas with no swelling, redness, or edema. ENT: Nares patent. No nasal discharge, no septal abnormalities noted. Tympanic membranes are normal and external auditory canals are clear. Oropharynx with no redness, swelling, or masses, exudates, or evidence of obstruction, uvula midline. Mucous membranes moist. Neck: Trachea midline, no thyromegaly or masses palpated, and no cervical lymphadenopathy. Supple, full range of motion without nuchal rigidity, or vertebral point tenderness. No Meningismus. Chest/axilla: Normal chest wall appearance and motion. Nontender with no deformity. No lesions are appreciated. Cardiovascular: Regular rate and rhythm with a normal S1 and S2. No gallops, murmurs, or rubs. Normal PMI, no JVD. No pulse deficits. Respiratory: Lungs have equal breath sounds bilaterally, clear to auscultation and percussion. No rales, rhonchi or wheezes noted. No increased work of breathing, no retractions or nasal flaring. Abdomen/GI: Soft, non-tender, with normal bowel sounds. No distension or tympany. No guarding or rebound. No evidence of tenderness throughout. Back: No spinal tenderness. No costovertebral tenderness. Full range of motion. Skin: Warm, dry with normal turgor. Normal color with no rashes, no lesions, and no evidence of cellulitis. Neuro: Awake and alert, GCS 15, oriented to person, place, time, and situation. Cranial nerves II-XII grossly intact. Motor strength 5/5 in all extremities. Sensory grossly intact. Cerebellar exam normal. Normal gait. Psych: Awake, alert, with orientation to person, place and time. Behavior, mood, and affect are within normal limits. snw 15:40 15:25 Musculoskeletal/extremity: Extremities: grossly normal except: noted in the right snw wrist: decreased ROM, pain, swelling, tenderness, ROM: limited active range of motion due to pain, limited passive range of motion due to pain, Circulation is intact in all extremities. Sensation intact. Compartment Syndrome exam of affected extremity: is normal. snw 16:15 15:51 12/14/2018 15:51 Discharged to Home. Impression: Unspecified abdominal pain. tw2 Condition is Stable. Forms are Medication Reconciliation Form, Thank You Letter, Antibiotic Education, Prescription Opioid Use. Follow up: Hiren Jeff; When: as scheduled; Reason: Recheck today's complaints, Continuance of care, Re-evaluation by your physician. Follow up: Emergency Department; When: As needed; Reason: Worsening of condition. snw
--- NOTE | 2018-12-14 15:53 | ER ---
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 Pt c/o pain to right side of abdomen. Transition of care: patient was not received from another setting of care. Onset of symptoms was November 2018. Risk Assessment: Do you want to hurt yourself or someone else? Patient reports no desire to harm self or others. Care prior to arrival: None. 13:36 Acuity: BINH 3 aa5 13:36 Method Of Arrival: Wheelchair aa5 15:35 Initial Sepsis Screen: Does the patient meet any 2 criteria? No. Patient's initial tw2 sepsis screen is negative. Does the patient have a suspected source of infection? No. Patient's initial sepsis screen is negative. Historical: - Allergies: 13:38 No Known Allergies; aa5 - Home Meds: 15:36 amlodipine 5 mg tab 1 tab once daily [Active]; cilostazol 100 mg Oral tab 1 tab 2 times tw2 per day [Active]; clopidogrel 75 mg Oral tab 1 tab once daily [Active]; lisinopril-hydrochlorothiazide 20-25 mg Oral tab 1 tab once daily [Active]; tramadol 50 mg Oral tab 1 tab every 4 hours [Active]; simvastatin 40 mg Oral tab 1 tab once daily [Active]; - PMHx: 13:37 Cirrhosis; Hypertension; aa5 13:38 Liver cancer; aa5 - Immunization history:: Adult Immunizations unknown. - Social history:: Smoking status: Patient/guardian denies using tobacco. - Ebola Screening: : No symptoms or risks identified at this time. Screenin:35 Abuse screen: Denies threats or abuse. Nutritional screening: No deficits noted. tw2 Tuberculosis screening: No symptoms or risk factors identified. Fall Risk None identified. Assessment: 15:20 General: Appears uncomfortable, slender, Behavior is calm, cooperative, appropriate for tw2 age. Pain: Complains of pain in abdomen. Neuro: Level of Consciousness is awake, alert, obeys commands, Oriented to person, place, time, situation. Cardiovascular: Heart tones S1 S2 Patient's skin is warm and dry. Respiratory: Airway is patent Respiratory effort is even, unlabored, Respiratory pattern is regular, symmetrical, Breath sounds are clear bilaterally. GI: Abdomen is flat, Bowel sounds present X 4 quads. Abd is soft X 4 quads Abdomen is tender to palpation X 4 quads. Reports lower abdominal pain, upper abdominal pain. : No signs and/or symptoms were reported regarding the genitourinary system. EENT: No signs and/or symptoms were reported regarding the EENT system. Derm: No signs and/or symptoms reported regarding the dermatologic system. Musculoskeletal: Range of motion: intact in all extremities. 16:12 Reassessment: Patient appears in no apparent distress at this time. Patient and/or tw2 family updated on plan of care and expected duration. Pain level reassessed. Patient is alert, oriented x 3, equal unlabored respirations, skin warm/dry/pink. Patient states feeling better. Patient states symptoms have improved. Vital Signs: 13:38 BP 94 / 55; Pulse 115; Resp 18 S; Temp 99.1(O); Pulse Ox 100% on R/A; Weight 53.07 kg aa5 (R); Height 5 ft. 7 in. (170.18 cm) (R); Pain 10/10; 15:34 BP 86 / 70; Pulse 100; Resp 17; Pulse Ox 100% on R/A; tw2 15:45 BP 110 / 56; Pulse 101; Resp 17; Pulse Ox 100% on R/A; tw2 16:11 BP 106 / 64; Pulse 98; Resp 17; Pulse Ox 100% ; Pain 7/10; tw2 13:38 Body Mass Index 18.32 (53.07 kg, 170.18 cm) aa5 ED Course: 13:31 Patient arrived in ED. dp 13:33 Hiren Jeff MD is Private Physician. dp 13:37 Triage completed. aa5 13:37 Arm band placed on. aa5 15:16 Jordi Thrasher PA is PHCP. cp 15:16 Jordi Sepulveda MD is Attending Physician. cp 15:23 PHCP role handed off by Jordi Thrasher PA snw 15:23 Madison Canas FNP-C is PHCP. snw 15:25 Raul Davila MD is Attending Physician. snw 15:26 Lilia Reed, RN is Primary Nurse. tw2 15:35 Bed in low position. Call light in reach. Adult w/ patient. Pulse ox on. NIBP on. tw2 15:50 Hiren Jeff MD is Referral Physician. snw 16:13 No provider procedures requiring assistance completed. Patient did not have IV access tw2 during this emergency room visit. Administered Medications: 15:30 Drug: fentaNYL Patch (25 mcg/hr) 1 patches {Note: upper right back.} Route: tw2 Transdermal; Site: affected area; 16:15 Follow up: Response: No adverse reaction; Pain is decreased tw2 15:33 Drug: fentaNYL (PF) 25 mcg Route: IM; Site: right deltoid; tw2 16:15 Follow up: Response: No adverse reaction; Pain is decreased tw2 Outcome: 15:51 Discharge ordered by . snw 16:13 Discharged to home via wheelchair, with family. tw2 16:13 Condition: stable 16:13 Discharge instructions given to patient, family, Instructed on discharge instructions, follow up and referral plans. medication usage, Demonstrated understanding of instructions, follow-up care. 16:15 Patient left the ED. tw2 Signatures: Madison Canas FNP-C PAI [employer] Marisela Viera RN RN aa5 Jordi Thrasher PA PA cp Lilia Reed, RN RN tw2 José Miguel Whitfield
[2018-12-14 18:01] VITALS: TEMP 99.1; O2SAT 100
[2018-12-14 18:06] VITALS: BP 106/64
== END 2018-12-14 16:15 | disposition home or self-care (01) ==
LOC: ER 13:26
DX: R10.11 Right upper quadrant pain (principal); I10 Essential (primary) hypertension; Z85.05 Personal history of malignant neoplasm of liver
CPT/HCPCS: 96372; 99283; J3010

== ENCOUNTER 2018-12-17 22:03 | Emergency (ER) | payer SELFPAY ==
--- OUTSIDE RECORDS SUMMARY | 2018-12-17 22:07 | XMS REPORT | Clinical Summary ---
:1960 Author Organization [facility] Address [address] [place] [address] Care Team Providers Name Role Phone Garett [...] of skin (HCC) Tony Valdes MD after 12/16/2017 Family History Medical History Relation Name Comments [...] 12/10/2018 8:00 AM CDT Plan of Treatment Date Type Specialty Care Team Description 12/18/2018 Office Visit Hepatology BernardoJose jhaveri MD [address] [facility] [address] [place] [address] [phone] Resource, [facility] C Implants Implanted Type Area Buggy Loader Device Identifier Shelf Model / Expiration Serial / Lot Date Grft Eptfe-Heparin Rng [id number] - [id number] Graft/P Right: ANGELA RAMIREZE & 05/12/2021 [id number] / Implanted: Qty: 1 on 09/25/2017 by Javi Urban MD [facility] Leg ASSC:MED PRDT [id number] / Synergy Stents- Left: B[place]ON [id number] 12/24/2019 [id number] / Implanted: Qty: 1 on 03/04/2018 by Isael Rocha MD [employer] / y [id number] Stents- COOK VASCULAR [id number] 09/19/2019 [id number] / Implanted: Qty: 1 on 03/04/2018 by Isael Rocha MD Periphe / ral [id number] Maquet Hemashield Gold Knitted Microvel Double Velour Vascular Graft 7mm X 30cm Right: [employer] 02/22/2022 [id number] / Implanted: Qty: 1 on 09/25/2017 by Javi Urban MD Leg [id number] / Procedures Procedure Name Priority Date/Time Associated Comments Diagnosis REPORT OF PROCEDURE - 12/14/2018 3:05 ENDOSCOPY SCAN PM CDT RHYTHM STRIP - SCAN 12/14/2018 3:05 PM CDT CBC W/PLT COUNT & AUTO Routine 12/11/2018 [...] results section. BLOOD CULTURE Routine 12/10/2018 3:54 Results for this PM CDT procedure are in the results section. BLOOD CULTURE Routine 12/10/2018 3:43 Results for this PM CDT procedure are in the results section. XR CHEST 1 VIEW Routine 12/10/2018 12:45 [...] unspecified vessel or lesion type, unspecified whether [place] or transplanted heart (HCC) Case Notes (3) [...] (7) STAT 03/02/2018 6:07 PM CDT after 12/16/2017 Results EKG-SCANNED (12/14/2018 3:05 PM CDT) Narrative Performed At RHYTHM STRIP - SCAN (12/14/2018 3:05 PM CDT)Only the most recent of4 resultswithin the time period is included. Narrative Performed At CBC with platelet count + automated diff (12/11/2018 4:39 AM CDT)Only the most recent of13 resultswithin the time period is included. WBC 11.9 (H) 3.5 - 10.5 K/L [facility] RBC 3.59 (L) 4.63 - 6.08 M/L [facility] Hemoglobin 10.4 (L) 13.7 - 17.5 GM/DL [facility] Hematocrit 31.4 (L) 40.1 - 51.0 % [facility] MCV 87.5 79.0 - 92.2 fL [facility] MCH 29.0 25.7 - 32.2 pg [facility] MCHC 33.1 32.3 - 36.5 GM/DL [facility] RDW 14.7 (H) 11.6 - 14.4 % [facility] Platelets 416 150 - 450 K/CU MM [facility] MPV 10.1 9.4 - 12.4 fL [facility] nRBC 0 0 - 0 /100 WBC [facility] % Neutros 67 % [facility] % Lymphs 20 % [facility] % Monos 11 % [facility] % Eos 2 % [facility] % Baso 0 % [facility] # Neutros 7.97 (H) 1.78 - 5.38 K/L [facility] # Lymphs 2.41 1.32 - 3.57 K/L [facility] # Monos 1.26 (H) 0.30 - 0.82 K/L [facility] # Eos 0.20 0.04 - 0.54 K/L [facility] # Baso 0.02 0.01 - 0.08 K/L [facility] Immature Granulocytes-Relative 1 0 - 1 % [facility] Specimen Blood Performing Organization Address City/State/Zipcode Phone Number [facility] [address] [place] [address] CENTER Basic metabolic panel (12/11/2018 4:39 AM CDT)Only the most recent of12 resultswithin the time period is included. Sodium 138 136 - 145 meq/L [facility] Potassium 3.7 3.5 - 5.1 meq/L [facility] Chloride 106 98 - 107 meq/L [facility] CO2 22 22 - 29 meq/L [facility] BUN 6 (L) 7 - 21 mg/dL [facility] Creatinine 0.71 0.57 - 1.25 mg/dL [facility] Glucose 91 70 - 105 mg/dL [facility] Calcium 9.0 8.4 - 10.2 mg/dL [facility] EGFR 138Comment: ESTIMATED GFR IS mL/min/1.73 sq m [facility] NOT ACCURATE CREATININE [facility] CLEARANCE IN PREDICTING GLOMERULAR FILTRATION RATE. ESTIMATED GFR IS NOT APPLICABLE FOR DIALYSIS PATIENTS. Specimen Blood Performing Organization Address City/[facility]/Zipcode Phone Number [address] [address] [place] Sputum Culture + Gram Stain (12/11/2018 12:30 AM CDT) Result 4+ Normal respiratory yael [facility] Gram Stain Result 2+ White blood cells seen [facility] Gram Stain Result 10-15 epithelial cells [facility] Gram Stain Result 3+ gram positive rods [facility] Gram Stain Result 3+ gram positive cocci in [facility] chains, pairs and clusters [facility] [place] Specimen Sputum - Expectorated Performing Organization Address City/State/Zipcode Phone Number [address] [address] [place] Urinalysis w/Microscopic + Reflex to Culture (12/10/2018 8:27 PM CDT) Color, UA Yellow [facility] Clarity, UA Clear [facility] Specific [place], UA 1.009 1.001 - 1.035 [facility] pH, UA 7.0 5.0 - 8.0 [facility] Protein, UA Negative Negative [facility] Glucose, UA Negative Negative [facility] Ketones, UA Negative Negative [facility] Bilirubin, UA Negative Negative [facility] Blood, UA Negative Negative [facility] Nitrite, UA Negative Negative [facility] Leukocytes, UA Large (A) Negative [facility] Urobilinogen, UA 8.0 (H) 0.2 - 1.0 mg/dL [facility] RBC, UA 1 /HPF [facility] WBC, UA 18 /HPF [facility] Squam Epithel, UA <1 /HPF [facility] Specimen Source [facility] Specimen Urine Performing Organization Address City/State/Zipcode Phone Number [address] [address] [place] Urine culture (12/10/2018 8:27 PM CDT) Result No growth [facility] Specimen Urine Performing Organization Address City/State/Zipcode Phone Number [address] [address] [phone] [place] Respiratory Panel [facility] (12/10/2018 3:54 PM CDT) Human Metapneumovirus Not detected Not detected, [facility] Rhinovirus Not detected Not detected, [facility] Influenza A Not detected Not detected, [facility] INFLUENZA A (NO SUBTYPE) Not detected, [facility] Influenza A subtype H1 Not detected, [facility] Influenza A Subtype H3 Not detected, [facility] Influenza A Subtype H1-2009 Not detected, [facility] Influenza B Not detected Not detected, [facility] Respiratory Syncytial Virus Not detected Not detected, [facility] Parainfluenza Virus 1 Not detected Not detected, [facility] Parainfluenza Virus 2 Not detected Not detected, [facility] Parainfluenza virus 3 Not detected Not detected, [facility] Parainfluenza Virus 4 Not detected Not detected, [facility] Adenovirus Not detected Not detected, [facility] Coronavirus 229E Not detected Not detected, [facility] Coronavirus HKU1 Not detected Not detected, [facility] Coronavirus NL63 Not detected Not detected, [facility] Coronavirus OC43 Not detected Not detected, [facility] Bordetella Pertussis Not detected Not detected, [facility] Chlamydophila Pneumoniae Not detected Not detected, [facility] Mycoplasma Pneumoniae Not detected Not detected, [facility] Specimen Nasopharyngeal Narrative Performed At Other viruses and bacteria not targeted by [facility] this PCR panel cannot be excluded; therefore clinical correlation and follow up of serology, culture results, and other molecular studies is required. The results are not intended to be used as the sole means for clinical diagnosis or patient management decisions. This sample was tested at the [facility] using the [employer] FilmArray Respiratory Panel. It is FDA cleared and has been verified and approved by the [facility] for clinical use on nasopharyngeal swab specimens. The performance of the FilmArray RP has not been established in individuals who received influenza vaccine.Recent administration of a nasal influenza vaccine may cause false positive results for Influenza A and/or Influenza B. Performing Organization Address City/State/Zipcode Phone Number [facility] [address] [place], [place] [phone] CENTER Blood Culture - Routine (Left Venipuncture) (12/10/2018 3:54 PM CDT)Only the most recent of5 resultswithin the time period is included. Result No growth in 5 days [facility] Specimen Blood Performing Organization Address City/State/Zipcode Phone Number [facility] [address] [place] [address] CENTER XR chest 1 view portable / bedside (12/10/2018 12:45 PM CDT) Specimen Narrative Performed At FINAL REPORT [employer] TECHNIQUE: Frontal chest radiograph dated 12/10/2018. CLINICAL [...] [facility] Reading [facility] Performing Organization Address City/State/Zipcode Phone Number [facility] PT/aPTT (12/08/2018 5:23 AM CDT)Only the most recent of4 resultswithin the time period is included. Protime 13.2 11.9 - 14.2 seconds [facility] INR 1.1 <=5.9 [facility] PTT 39.2 (H) 22.5 - 36.0 seconds [facility] Specimen Blood Narrative Performed At Effective 10/21/2018: PT Reference Range [facility] Change New: 11.9-14.2Previous: 11.7-14.7 RECOMMENDED COUMADIN/WARFARIN INR THERAPY RANGES STANDARD DOSE: 2.0-3.0Includes: PROPHYLAXIS for venous thrombosis, systemic embolization; TREATMENT for venous thrombosis and/or pulmonary embolus. HIGH RISK: Target INR is 2.5-3.5 for patients wiht mechanical heart valves. Performing Organization Address [facility] Phone Number [address] [address] [place] Hepatic function panel (12/08/2018 5:23 AM CDT)Only the most recent of3 resultswithin the time period is included. Protein, Total 6.7 6.0 - 8.3 gm/dL [facility] Albumin 3.6 3.5 - 5.0 g/dL [facility] Total Bilirubin 0.7 0.2 - 1.2 mg/dL [facility] Bilirubin, Direct 0.6 (H) 0.1 - 0.5 mg/dL [facility] Alkaline Phosphatase 267 (H) 40 - 150 U/L [facility] AST 595 (H) 5 - 34 U/L [facility] ALT 658 (H) 6 - 55 U/L [facility] Specimen Blood Performing Organization Address [facility] Phone Number [place] [phone] [place], [place] [phone] [place] [address] chest with IV contrast (12/07/2018 9:47 PM CDT) Specimen Narrative Performed At FINAL REPORT [facility] EXAMINATION: Chest CT with IV contrast. CLINICAL [...] MD Report Verified Date/Time:12/08/2018 04:21:30 Reading Location: [address] Reading Room Procedure Note Interface, External [...] Report Verified Date/Time: 12/08/2018 04:21:30 Reading Location: [address] Reading Room Performing Organization Address City/State/Zipcode Phone Number [facility] MR abdomen without & with IV contrast (12/06/2018 8:48 AM CDT) Specimen Narrative Performed At FINAL REPORT [facility] MRI of the abdomen dated December 06, [...] MD Report Verified Date/Time:12/06/2018 10:49:29 Reading Location: [facility] C013Y CT Body Reading Room Procedure Note Interface, [...] Report Verified Date/Time: 12/06/2018 10:49:29 Reading Location: [facility] C0Y CT Body Reading Room Performing Organization Address City/State/Zipcode Phone Number [facility] Carbohydrate antigen 19-9 (CA 19-9) (12/06/2018 8:22 AM CDT) CA 19-9 <3 <34 U/mL [facility] FT[employer] Comment: This test was performed using the Siemens Chemiluminescent method. Values obtained from different assay methods cannot be used interchangeably. CA19-9 levels, regardless of value, should not be interpreted as absolute evidence of the presence or absence of disease. Specimen Blood Narrative Performed At Performing Lab [facility] sendwithus [place] [id number] [facility] [place] [address] Rafa Gr MD, PhD, MARGARITA Performing Organization Address City/[facility] Cent[facility] Phone Number [facility] [place] [address] INCORPORATED [id number] [facility] Carcinoembryonic Antigen (CEA) (12/06/2018 5:42 AM CDT) CEA, SERUM 0.7 0.0 - 5.0 ng/mL [facility] Specimen Blood Performing Organization Address [facility] Phone Number [address] [address] [phone] [place] Hepatitis C PCR, Quantitative (12/05/2018 11:27 AM CDT) HCV PCR, Quantitative HCV RNA not detected HCV RNA not detected [facility] Specimen Blood Narrative Performed At This test uses a Real-Time Polymerase Chain [facility] Reaction (RT-PCR) methodology and was performed using DAVID Ampliprep/DAVID TaqMan HCV test kit version 2.0 ([employer]). Reportable range for this assay is 15 - 100,000,000 IU per mL (1.18 - 8.00 Log IU/mL). Performing Organization Address [facility] Phone Number [address] [address] [place] Hepatitis panel, acute (12/05/2018 5:19 AM CDT) Hep A IgM Nonreactive Nonreactive [facility] Hep B C IgM Nonreactive Nonreactive [facility] Hepatitis C Ab Reactive (A) Nonreactive [facility] hepatitis B Surface Ag Nonreactive Nonreactive [facility] Specimen Blood Performing Organization Address [facility] Cent[facility] Phone Number [address] [address] CENTER Magnesium (12/05/2018 5:19 AM CDT) Magnesium 2.1 1.6 - 2.6 mg/dL [facility] Specimen Blood Performing Organization Address City/[facility]/Zipcode Phone Number [facility] [address] [place] [address] [phone] [place] Comprehensive metabolic panel (12/05/2018 5:19 AM CDT) Protein, Total 7.2 6.0 - 8.3 gm/dL [facility] Albumin 3.8 3.5 - 5.0 g/dL [facility] Alkaline Phosphatase 148 40 - 150 U/L [facility] Total Bilirubin 0.3 0.2 - 1.2 mg/dL [facility] Sodium 131 (L) 136 - 145 meq/L [facility] Potassium 4.0 3.5 - 5.1 meq/L [facility] Chloride 100 98 - 107 meq/L [facility] CO2 24 22 - 29 meq/L [facility] BUN 12 7 - 21 mg/dL [facility] Creatinine 0.91 0.57 - 1.25 mg/dL [facility] Glucose 98 70 - 105 mg/dL [facility] Calcium 8.9 8.4 - 10.2 mg/dL [facility] AST 135 (H) 5 - 34 U/L [facility] ALT 81 (H) 6 - 55 U/L [facility] EGFR 104Comment: ESTIMATED mL/min/1.73 sq m [facility] GFR IS NOT ACCURATE [facility] CREATININE CLEARANCE IN PREDICTING GLOMERULAR FILTRATION RATE. ESTIMATED GFR IS NOT APPLICABLE FOR DIALYSIS PATIENTS. Specimen Blood Performing Organization Address City/State/Zipcode Phone Number [facility] [address] [place] [address] [place] Alpha fetoprotein (AFP), tumor marker (12/04/2018 9:32 PM CDT) Alpha-Fetoprotein >43214.0 (H) <10.0 ng/mL [facility] Specimen Blood Performing Organization Address City/State/Zipcode Phone Number [facility] [address] [place] [address] CENTER CARDIAC CATH REPORT - SCAN (03/10/2018 12:01 PM CDT) Narrative Performed At [facility]'s Only(Ankle/Brachial Index) (03/06/2018 10:32 AM CDT) Ejection Fraction [facility] CPACS Specimen Impressions Performed At Right Impression [facility] CP[facility] 1. The posterior tibial artery had abnormal [...] Narrative Performed At PV LAB - Lower Extremity Arterial Procedure [facility] Demographics Patient NameSNATALIA RICHARD Date of Study 03/06/2018 NORAH 57 Visit [id number] Male of 1960 Number Referring Ivan Crabtree Number [id number] Physician Stove Mechanic Evelia ChengInterpretingJ. Zbigniew Ramirez, RVT Physician , CITLALI Procedure Type of Study: [...] Study 03/06/2018 NORAH Age 57 Visit Number [id number] Gender Male Date of 1960 Number Referring Josefina Kirkland MD Room Number [id number] Physician Stove Mechanic Evelia Cheng Interpreting Jon Ramirez T Physician , RPVI Procedure Type [...] are measured in cm Performing Organization Address City/State/Zipcode Phone Number [facility] aPTT (03/06/2018 6:42 AM CDT)Only the most recent of13 resultswithin the time period is included. PTT 107.0 (H) 22.5 - 36.0 seconds [facility] Specimen Blood Performing Organization Address City/State/Zipcode Phone Number [place] [phone] [place], [place] [address] [phone] [place] TRANSFUSION SERVICE REPORT - SCAN (03/04/2018 6:00 PM CDT) Narrative Performed At POC ACTIVATED CLOTTING TIME (03/04/2018 3:45 PM CDT) Activated Clotting Time 269Comment: TESTED AT sec [facility] BSC [address] [facility] [address] Specimen Blood Performing Organization Address City/State/Zipcode Phone Number [address] [phone] [place] CTA AAA and Runoff (03/03/2018 7:18 PM CDT) Specimen Narrative Performed At Addendum Begins RIS REPORT STATUS:A Addendum: I reviewed the nonvascular features of this examination and concur with Dr. Restrepo's report. Signed: Juan Esparza MD Report Verified Date/Time:03/04/2018 15:50:09 Reading Location: [place] [address] Angio Body Reading Room Addendum Ends FINAL [...] dynamic data set. In the right, the [place] right SFA is occluded. The right profunda [...] to femoral bypass graft is identified. 3.The [place] left SFA is occluded. The right SFA [...] dictated regarding the non-vascular findings by the Forester Silviculture Radiologist. Signed: Shawn Restrepo MD Report Verified Date/Time:03/04/2018 07:12:51 Reading Location: [place] [address] Cardiology MRI Procedure Note Interface, External Ris In - 03/04/2018 3:52 PM CDT Addendum Begins REPORT STATUS:A Addendum: I reviewed the nonvascular features of this examination and concur with Dr. Restrepo's report. Signed: Juan Esparza MD Report Verified Date/Time: 03/04/2018 15:50:09 Reading Location: [place] [address] Angio Body Reading Room Addendum Ends FINAL [...] dynamic data set. In the right, [place] right SFA is occluded. The right profunda [...] femoral bypass graft is identified. 3. [place] left SFA is occluded. The right SFA [...] dictated regarding the non-vascular findings by the Forester Silviculture Radiologist. Signed: Shawn Restrepo MD Report Verified Date/Time: 03/04/2018 07:12:51 Reading Location: [place] [address] Cardiology MRI Performing Organization Address City/[facility]/Zipcode Phone Number [facility] Type and screen, automated (03/03/2018 2:39 PM CDT) ABO/RH AUTOMATED (BEAKER) A POSITIVE [facility] Ab Scrn NEGATIVE [facility] Specimen Blood Performing Organization Address City/[facility]/Zipcode Phone Number [facility] [address] [place] [address] XR foot 3 views right (03/03/2018 7:03 AM CDT) Specimen Narrative Performed At FINAL REPORT [facility] TECHNIQUE: Frontal, lateral, and oblique radiographs of [...] MD Report Verified Date/Time:03/03/2018 08:43:54 Reading Location: [facility] Radiology Reading Room Procedure Note [...] Report Verified Date/Time: 03/03/2018 08:43:54 Reading Location: [facility] Radiology Reading Room Performing Organization Address City/State/Zipcode Phone Number [facility] Arterial doppler leg, right (03/02/2018 9:28 PM CDT) Ejection Fraction [facility] CPACS Specimen Impressions Performed At Right Impression [facility] CPACS 1. The [...] + + + + + + !Prox MEDIEVAL ENGLISH LITERATURE PROFESSOR ! !18.6 !! ! + + + + + + !Mid MEDIEVAL ENGLISH LITERATURE PROFESSOR ! !21.7 !! ! + + + + + + !Dist MEDIEVAL ENGLISH LITERATURE PROFESSOR ! !30.9 !! ! + + + [...] At LAB - Lower Extremity Arterial Duplex [facility]ART[facility] Demographics Patient NATALIA Trejo Date of Study 03/02/2018 NORAH 57 Visit [id number] Male of 1960 Number Referring Ravi FontanaRoom Number [id number] Luis Carlos [facility] [place]. Zbigniew Ramirez, Physician , RPVI Procedure Type of [...] Study 03/02/2018 NORAH Age 57 Visit Number [id number] Gender Male Date of 1960 Number Referring Ravi Fontana Room Number [id number] Luis Carlos Villalta Interpreting Jon Ramirez, Physician [...] + + + -------+ + + !Prox MEDIEVAL ENGLISH LITERATURE PROFESSOR ! !18.6 ! ! ! + + + -------+ + + !Mid MEDIEVAL ENGLISH LITERATURE PROFESSOR ! !21.7 ! ! ! + + + -------+ + + !Dist MEDIEVAL ENGLISH LITERATURE PROFESSOR ! !30.9 ! ! ! + + [...] + Performing Organization Address City/State/Zipcode Phone Number [facility] [address] Venous doppler leg, right (03/02/2018 8:00 PM CDT) Ejection Fraction [facility] [employer] [facility] Specimen Impressions Performed At Right Impression [facility] [employer] [facility] 1. There is no deep venous [...] PV LAB - Lower Extremities DVT Study [facility] Demographics Patient NameSNATALIA RICHARD Date of Study 03/02/2018 NORAH 57 Visit [id number] Male of 1960 [facility] [id number] Marlee Gallagher T InterpretingJon Ramirez Physician , CITLALI Procedure Type [...] Study 03/02/2018 NORAH Age 57 Visit Number [id number] Gender Male Date of 1960 Number Referring Ravi Fontana Room Number [id number] Mechan[address] Marlee Gallagher T Interpreting Jon Ramirez, Physician , RPVI Procedure Type of Study: Veins: Lower Extremities [...] are measured in cm Performing Organization Address City/[facility] Phone Number [facility] C-Reactive Protein (03/02/2018 6:07 PM CDT) CRP 0.04 0.00 - 0.50 mg/dL [facility] Specimen Blood Performing Organization Address [facility] Phone Number [address] [address] [phone] CENTER after 12/16/2017 Advance Directives For more information, please contact:[address] [phone] Code Status Date Activated Date Inactivated Comments [...]
--- OUTSIDE RECORDS SUMMARY | 2018-12-17 22:08 | XMS REPORT ---
:1960 [facility] [address] [place] [address] Care Team Providers Name Role Phone KAREN HOUSEAiram Unavailable Unavailable CARLI WAN Unavailable Unavailable GRETA URBAN Unavailable Unavailable Problems This patient has no known problems. Allergies, Adverse Reactions, Alerts This patient has no known allergies or adverse reactions. Medications This patient has no known medications. Results Test Description Test Time Test Comments Text Results Atomic Results Result Comments BLOOD CULTURE 2018-12-15 20:01:00 Test Item Value Reference Range Comments CULTURE (BEAKER) (test jhaf=1899) No growth in 5 days BLOOD [id number] 20:01:00 Test Item Value Reference Range Comments CULTURE (BEAKER) (test yyyy=2969) No growth in 5 days SPUTUM CULTURE + GRAM [id number] 13:21:00 Test Item Value Reference Range Comments CULTURE (BEAKER) (test 4+ Normal respiratory yael bdbf=4296) present GRAM STAIN RESULT (BEAKER) 2+ White blood cells seen (test utyx=4151) GRAM STAIN RESULT (BEAKER) 10-15 epithelial cells (test yoti=02509) GRAM STAIN RESULT (BEAKER) 3+ gram positive rods (test ovsj=34381) GRAM STAIN RESULT (BEAKER) 3+ gram positive cocci in (test tdee=557822) chains, pairs and clusters BASIC METABOLIC [id number] 07:38:00 Test Item Value Reference Range Comments SODIUM (BEAKER) (test 138 meq/L 136-145 xdfe=656) POTASSIUM (BEAKER) (test 3.7 meq/L 3.5-5.1 hlne=619) CHLORIDE (BEAKER) (test 106 meq/L 98-107 hnaq=924) CO2 (BEAKER) (test 22 meq/L 22-29 aubp=319) BLOOD UREA NITROGEN 6 mg/dL 7-21 (BEAKER) (test vcay=430) CREATININE (BEAKER) (test 0.71 mg/dL 0.57-1.25 jvin=008) GLUCOSE RANDOM (BEAKER) 91 mg/dL 70-105 (test dsmq=019) CALCIUM (BEAKER) (test 9.0 mg/dL 8.4-10.2 mlej=721) EGFR (BEAKER) (test 138 mL/min/1.73 sq m ESTIMATED GFR IS NOT cvpa=3367) ACCURATE CREATININE CLEARANCE IN PREDICTING GLOMERULAR FILTRATION RATE. ESTIMATED GFR IS NOT APPLICABLE FOR DIALYSIS PATIENTS. CBC W/PLT COUNT & AUTO [id number] 05:19:00 Test Item Value Reference Range Comments WHITE BLOOD CELL COUNT (BEAKER) (test vkzy=254) 11.9 K/ L 3.5-10.5 RED BLOOD CELL COUNT (BEAKER) (test ruur=313) 3.59 M/ L 4.63-6.08 HEMOGLOBIN (BEAKER) (test zluo=440) 10.4 GM/DL 13.7-17.5 HEMATOCRIT (BEAKER) (test hwyr=177) 31.4 % 40.1-51.0 MEAN CORPUSCULAR VOLUME (BEAKER) (test dqnm=202) 87.5 fL 79.0-92.2 MEAN CORPUSCULAR HEMOGLOBIN (BEAKER) (test 29.0 pg 25.7-32.2 iiqp=610) MEAN CORPUSCULAR HEMOGLOBIN CONC (BEAKER) (test 33.1 GM/DL 32.3-36.5 bpae=077) RED CELL DISTRIBUTION WIDTH (BEAKER) (test 14.7 % 11.6-14.4 gant=862) PLATELET COUNT (BEAKER) (test uxpn=148) 416 K/CU MM 150-450 MEAN PLATELET VOLUME (BEAKER) (test veqt=570) 10.1 fL 9.4-12.4 NUCLEATED RED BLOOD CELLS (BEAKER) (test 0 /100 WBC 0-0 eaoa=684) NEUTROPHILS RELATIVE PERCENT (BEAKER) (test 67 % uebo=818) LYMPHOCYTES RELATIVE PERCENT (BEAKER) (test 20 % kfia=728) MONOCYTES RELATIVE PERCENT (BEAKER) (test 11 % aaxk=864) EOSINOPHILS RELATIVE PERCENT (BEAKER) (test 2 % mgon=542) BASOPHILS RELATIVE PERCENT (BEAKER) (test 0 % wwlr=900) NEUTROPHILS ABSOLUTE COUNT (BEAKER) (test 7.97 K/ L 1.78-5.38 vina=192) LYMPHOCYTES ABSOLUTE COUNT (BEAKER) (test 2.41 K/ L 1.32-3.57 hphe=528) MONOCYTES ABSOLUTE COUNT (BEAKER) (test 1.26 K/ L 0.30-0.82 lfxo=887) EOSINOPHILS ABSOLUTE COUNT (BEAKER) (test 0.20 K/ L 0.04-0.54 jnvx=761) BASOPHILS ABSOLUTE COUNT (BEAKER) (test 0.02 K/ L 0.01-0.08 zttb=434) IMMATURE GRANULOCYTES-RELATIVE PERCENT (BEAKER) 1 % 0-1 (test plna=2685) URINALYSIS W/ REFLEX URINE [id number] 21:32:00 Test Item Value Reference Range Comments COLOR (BEAKER) (test lptb=616) Yellow CLARITY (BEAKER) (test iiuf=266) Clear SPECIFIC GRAVITY UA (BEAKER) (test uadt=874) 1.009 1.001-1.035 PH UA (BEAKER) (test fwrr=255) 7.0 5.0-8.0 PROTEIN UA (BEAKER) (test fenm=534) Negative Negative GLUCOSE UA (BEAKER) (test hmhl=031) Negative Negative KETONES UA (BEAKER) (test hyay=893) Negative Negative BILIRUBIN UA (BEAKER) (test vieo=693) Negative Negative BLOOD UA (BEAKER) (test rzih=423) Negative Negative NITRITE UA (BEAKER) (test fohy=683) Negative Negative LEUKOCYTE ESTERASE UA (BEAKER) (test mjdb=637) Large Negative UROBILINOGEN UA (BEAKER) (test vbtv=874) 8.0 mg/dL 0.2-1.0 RBC UA (BEAKER) (test slcv=022) 1 /HPF WBC UA (BEAKER) (test cenu=239) 18 /HPF SQUAMOUS EPITHELIAL (BEAKER) (test sskq=435) < /HPF SOURCE(BEAKER) (test saoy=0629) RESPIRATORY PANEL [id number] 20:04:00 Test Item Value Reference Range Comments HUMAN METAPNEUMOVIRUS (BEAKER) (test Not detected Not detected, Equivocal cmur=6159) RHINOVIRUS (BEAKER) (test hanc=7673) Not detected Not detected, Equivocal INFLUENZA A (BEAKER) (test rsru=6933) Not detected Not detected, Equivocal INFLUENZA A (NO SUBTYPE) (test Not detected, Equivocal yerh=6923) INFLUENZA A SUBTYPE H1 (BEAKER) (test Not detected, Equivocal eqmh=9124) INFLUENZA A SUBTYPE H3 (BEAKER) (test Not detected, Equivocal hrvr=3311) INFLUENZA A SUBTYPE H1-2009 (BEAKER) Not detected, Equivocal (test bknx=4766) INFLUENZA B (BEAKER) (test ynum=6020) Not detected Not detected, Equivocal RESPIRATORY SYNCYTIAL VIRUS (BEAKER) Not detected Not detected, Equivocal (test ngsu=4729) PARAINFLUENZA VIRUS 1 (BEAKER) (test Not detected Not detected, Equivocal phvv=0469) PARAINFLUENZA VIRUS 2 (BEAKER) (test Not detected Not detected, Equivocal yevi=1890) PARAINFLUENZA VIRUS 3 (BEAKER) (test Not detected Not detected, Equivocal ptml=4081) PARAINFLUENZA VIRUS 4 (BEAKER) (test Not detected Not detected, Equivocal hbgg=3060) ADENOVIRUS (BEAKER) (test vavl=8008) Not detected Not detected, Equivocal CORONAVIRUS 229E (BEAKER) (test Not detected Not detected, Equivocal etqq=8929) CORONAVIRUS HKU1 (BEAKER) (test Not detected Not detected, Equivocal vkzu=3277) CORONAVIRUS NL63 (BEAKER) (test Not detected Not detected, Equivocal rmph=6416) CORONAVIRUS OC43 (BEAKER) (test Not detected Not detected, Equivocal ddoq=5601) BORDETELLA PERTUSSIS (BEAKER) (test Not detected Not detected, Equivocal cwws=0727) CHLAMYDOPHILA PNEUMONIAE (BEAKER) (test Not detected Not detected, Equivocal kyel=6431) MYCOPLASMA PNEUMONIAE (BEAKER) (test Not detected Not detected, Equivocal elkb=8499) Other viruses and bacteria not targeted by this PCR panel cannot be excluded; therefore clinical correlation and follow up of serology, culture results, and other molecular studies is required. The results are not intended to be used as the sole means for clinical diagnosis or patient management decisions. This sample was tested at the [facility] Molecular Diagnostics Laboratory using the [employer] Respiratory Panel. It is FDA cleared and has been verified and approved by the [facility] Molecular Diagnostics Laboratory for clinical use on nasopharyngeal swab specimens.The performance of the FilmArrayRP has not been established in individuals who received influenza vaccine. Recent administration ofa nasal influenza vaccine may cause false positive results for Influenza A and/orInfluenza B.RAD, CHEST, 1 VIEW, NON [id number] 13:42: 00Reason for exam:->feverShould this be performed at the bedside?-> YesFINAL REPORT TECHNIQUE: Frontal chest radiograph dated 12/10/2018. CLINICAL HISTORY: Fever COMPARISON STUDY: Chest radiograph dated 09/25/2017 IMPRESSION:Lungs are clear. No pleural effusion or pneumothorax. Cardiomediastinal silhouette is normal in size. No pulmonary edema. No fracture. Signed: Shantanu Ryan MDReport Verified Date/Time: 12/10/2018 13:42:21 Reading Location: [facility] Reading Room [facility] METABOLIC [id number] 07:05:00 Test Item Value Reference Range Comments SODIUM (BEAKER) (test 135 meq/L 136-145 lnzs=878) POTASSIUM (BEAKER) (test 3.7 meq/L 3.5-5.1 vpdf=936) CHLORIDE (BEAKER) (test 105 meq/L 98-107 rqkf=210) CO2 (BEAKER) (test 23 meq/L 22-29 dbsc=596) BLOOD UREA NITROGEN 6 mg/dL 7-21 (BEAKER) (test ovki=455) CREATININE (BEAKER) (test 0.78 mg/dL 0.57-1.25 maae=216) GLUCOSE RANDOM (BEAKER) 97 mg/dL 70-105 (test vwpf=499) CALCIUM (BEAKER) (test 8.7 mg/dL 8.4-10.2 pada=181) EGFR (BEAKER) (test 124 mL/min/1.73 sq m ESTIMATED GFR IS NOT mbfy=4248) ACCURATE CREATININE CLEARANCE IN PREDICTING GLOMERULAR FILTRATION RATE. ESTIMATED GFR IS NOT APPLICABLE FOR DIALYSIS PATIENTS. CBC W/PLT COUNT & AUTO [id number] 05:42:00 Test Item Value Reference Range Comments WHITE BLOOD CELL COUNT (BEAKER) (test fcdf=834) 13.0 K/ L 3.5-10.5 RED BLOOD CELL COUNT (BEAKER) (test dpzg=792) 3.71 M/ L 4.63-6.08 HEMOGLOBIN (BEAKER) (test jnef=160) 10.9 GM/DL 13.7-17.5 HEMATOCRIT (BEAKER) (test yehb=024) 32.1 % 40.1-51.0 MEAN CORPUSCULAR VOLUME (BEAKER) (test debd=162) 86.5 fL 79.0-92.2 MEAN CORPUSCULAR HEMOGLOBIN (BEAKER) (test 29.4 pg 25.7-32.2 kksm=352) MEAN CORPUSCULAR HEMOGLOBIN CONC (BEAKER) (test 34.0 GM/DL 32.3-36.5 bwky=180) RED CELL DISTRIBUTION WIDTH (BEAKER) (test 14.4 % 11.6-14.4 gjvw=442) PLATELET COUNT (BEAKER) (test ifxy=006) 407 K/CU MM 150-450 MEAN PLATELET VOLUME (BEAKER) (test ecdf=315) 9.8 fL 9.4-12.4 NUCLEATED RED BLOOD CELLS (BEAKER) (test 0 /100 WBC 0-0 uugf=383) NEUTROPHILS RELATIVE PERCENT (BEAKER) (test 72 % lkqz=831) LYMPHOCYTES RELATIVE PERCENT (BEAKER) (test 17 % cqpy=787) MONOCYTES RELATIVE PERCENT (BEAKER) (test 9 % prkz=493) EOSINOPHILS RELATIVE PERCENT (BEAKER) (test 1 % hswz=808) BASOPHILS RELATIVE PERCENT (BEAKER) (test 0 % oiuv=738) NEUTROPHILS ABSOLUTE COUNT (BEAKER) (test 9.35 K/ L 1.78-5.38 utwz=714) LYMPHOCYTES ABSOLUTE COUNT (BEAKER) (test 2.14 K/ L 1.32-3.57 jdfs=543) MONOCYTES ABSOLUTE COUNT (BEAKER) (test 1.22 K/ L 0.30-0.82 pkpi=177) EOSINOPHILS ABSOLUTE COUNT (BEAKER) (test 0.15 K/ L 0.04-0.54 qsje=149) BASOPHILS ABSOLUTE COUNT (BEAKER) (test 0.04 K/ L 0.01-0.08 sucx=184) IMMATURE GRANULOCYTES-RELATIVE PERCENT (BEAKER) 1 % 0-1 (test qosm=1181) BASIC METABOLIC [id number] 07:42:00 Test Item Value Reference Range Comments SODIUM (BEAKER) (test 135 meq/L 136-145 zfct=154) POTASSIUM (BEAKER) (test 3.9 meq/L 3.5-5.1 qqev=807) CHLORIDE (BEAKER) (test 106 meq/L 98-107 kbdo=441) CO2 (BEAKER) (test 21 meq/L 22-29 jytl=088) BLOOD UREA NITROGEN 7 mg/dL 7-21 (BEAKER) (test ibvl=568) CREATININE (BEAKER) (test 0.79 mg/dL 0.57-1.25 xpog=045) GLUCOSE RANDOM (BEAKER) 87 mg/dL 70-105 (test lzty=542) CALCIUM (BEAKER) (test 8.8 mg/dL 8.4-10.2 xkva=961) EGFR (BEAKER) (test 122 mL/min/1.73 sq m ESTIMATED GFR IS NOT bnhy=7648) ACCURATE CREATININE CLEARANCE IN PREDICTING GLOMERULAR FILTRATION RATE. ESTIMATED GFR IS NOT APPLICABLE FOR DIALYSIS PATIENTS. CBC W/PLT COUNT & AUTO [id number] 06:35:00 Test Item Value Reference Range Comments WHITE BLOOD CELL COUNT (BEAKER) (test gqdr=588) 11.7 K/ L 3.5-10.5 RED BLOOD CELL COUNT (BEAKER) (test ofoo=774) 3.73 M/ L 4.63-6.08 HEMOGLOBIN (BEAKER) (test bsri=171) 10.9 GM/DL 13.7-17.5 HEMATOCRIT (BEAKER) (test ogpr=823) 32.5 % 40.1-51.0 MEAN CORPUSCULAR VOLUME (BEAKER) (test trbv=519) 87.1 fL 79.0-92.2 MEAN CORPUSCULAR HEMOGLOBIN (BEAKER) (test 29.2 pg 25.7-32.2 kxoo=904) MEAN CORPUSCULAR HEMOGLOBIN CONC (BEAKER) (test 33.5 GM/DL 32.3-36.5 hqxr=613) RED CELL DISTRIBUTION WIDTH (BEAKER) (test 14.3 % 11.6-14.4 bczp=989) PLATELET COUNT (BEAKER) (test gsvu=509) 427 K/CU MM 150-450 MEAN PLATELET VOLUME (BEAKER) (test yucf=623) 10.1 fL 9.4-12.4 NUCLEATED RED BLOOD CELLS (BEAKER) (test 0 /100 WBC 0-0 umhe=034) NEUTROPHILS RELATIVE PERCENT (BEAKER) (test 70 % kuwu=291) LYMPHOCYTES RELATIVE PERCENT (BEAKER) (test 19 % ngnl=810) MONOCYTES RELATIVE PERCENT (BEAKER) (test 9 % bfly=693) EOSINOPHILS RELATIVE PERCENT (BEAKER) (test 2 % dlhp=751) BASOPHILS RELATIVE PERCENT (BEAKER) (test 0 % sfup=890) NEUTROPHILS ABSOLUTE COUNT (BEAKER) (test 8.19 K/ L 1.78-5.38 ssrn=499) LYMPHOCYTES ABSOLUTE COUNT (BEAKER) (test 2.25 K/ L 1.32-3.57 cdoc=815) MONOCYTES ABSOLUTE COUNT (BEAKER) (test 1.00 K/ L 0.30-0.82 odcv=395) EOSINOPHILS ABSOLUTE COUNT (BEAKER) (test 0.19 K/ L 0.04-0.54 bfuw=880) BASOPHILS ABSOLUTE COUNT (BEAKER) (test 0.03 K/ L 0.01-0.08 tdya=164) IMMATURE GRANULOCYTES-RELATIVE PERCENT (BEAKER) 1 % 0-1 (test rgmg=0050) HEPATIC FUNCTION [id number] 06:55:00 Test Item Value Reference Range Comments TOTAL PROTEIN (BEAKER) (test qayw=262) 6.7 gm/dL 6.0-8.3 ALBUMIN (BEAKER) (test mvbc=9664) 3.6 g/dL 3.5-5.0 BILIRUBIN TOTAL (BEAKER) (test qatu=999) 0.7 mg/dL 0.2-1.2 BILIRUBIN DIRECT (BEAKER) (test fwsc=731) 0.6 mg/dL 0.1-0.5 ALKALINE PHOSPHATASE (BEAKER) (test rczh=115) 267 U/L 40-150 AST (SGOT) (BEAKER) (test cxtu=626) 595 U/L 5-34 ALT (SGPT) (BEAKER) (test goef=940) 658 U/L 6-55 BASIC METABOLIC [id number] 06:55:00 Test Item Value Reference Range Comments SODIUM (BEAKER) (test 136 meq/L 136-145 rktq=193) POTASSIUM (BEAKER) (test 4.0 meq/L 3.5-5.1 txje=359) CHLORIDE (BEAKER) (test 107 meq/L 98-107 pslv=712) CO2 (BEAKER) (test 21 meq/L 22-29 epcc=387) BLOOD UREA NITROGEN 8 mg/dL 7-21 (BEAKER) (test exln=878) CREATININE (BEAKER) (test 0.75 mg/dL 0.57-1.25 ylui=125) GLUCOSE RANDOM (BEAKER) 95 mg/dL 70-105 (test aasp=766) CALCIUM (BEAKER) (test 9.1 mg/dL 8.4-10.2 jpof=455) EGFR (BEAKER) (test 130 mL/min/1.73 sq m ESTIMATED GFR IS NOT ulfd=6298) ACCURATE CREATININE CLEARANCE IN PREDICTING GLOMERULAR FILTRATION RATE. ESTIMATED GFR IS NOT APPLICABLE FOR DIALYSIS PATIENTS. [id number] 06:07:00 Test Item Value Reference Range Comments PROTIME (BEAKER) (test axqk=211) 13.2 seconds 11.9-14.2 INR (BEAKER) (test ywlt=130) 1.1 <=5.9 PARTIAL THROMBOPLASTIN TIME (BEAKER) (test 39.2 seconds 22.5-36.0 ttci=313) Effective 10/21/2018: PT Reference Range ChangeNew: 11.9-14.2 Previous: 11.7- 14.7RECOMMENDED COUMADIN/WARFARIN INR THERAPY RANGESSTANDARD DOSE: 2.0-3.0 Includes: PROPHYLAXIS for venous thrombosis, systemic embolization; TREATMENT for venous thrombosis and/or pulmonary embolus.HIGH RISK: Target INR is2.5-3.5 for patients wiht mechanical heart valves.CBC W/PLT COUNT & AUTO [id number] 05:58:00 Test Item Value Reference Range Comments WHITE BLOOD CELL COUNT (BEAKER) (test inzd=280) 9.6 K/ L 3.5-10.5 RED BLOOD CELL COUNT (BEAKER) (test ijkz=318) 3.86 M/ L 4.63-6.08 HEMOGLOBIN (BEAKER) (test idmp=527) 11.1 GM/DL 13.7-17.5 HEMATOCRIT (BEAKER) (test nmaq=137) 33.3 % 40.1-51.0 MEAN CORPUSCULAR VOLUME (BEAKER) (test cggn=591) 86.3 fL 79.0-92.2 MEAN CORPUSCULAR HEMOGLOBIN (BEAKER) (test 28.8 pg 25.7-32.2 rvih=303) MEAN CORPUSCULAR HEMOGLOBIN CONC (BEAKER) (test 33.3 GM/DL 32.3-36.5 avkr=045) RED CELL DISTRIBUTION WIDTH (BEAKER) (test 14.2 % 11.6-14.4 bgop=903) PLATELET COUNT (BEAKER) (test jxau=508) 414 K/CU MM 150-450 MEAN PLATELET VOLUME (BEAKER) (test zrwu=331) 9.8 fL 9.4-12.4 NUCLEATED RED BLOOD CELLS (BEAKER) (test 0 /100 WBC 0-0 bzff=629) NEUTROPHILS RELATIVE PERCENT (BEAKER) (test 69 % ycgr=529) LYMPHOCYTES RELATIVE PERCENT (BEAKER) (test 21 % dejg=826) MONOCYTES RELATIVE PERCENT (BEAKER) (test 7 % ksbq=133) EOSINOPHILS RELATIVE PERCENT (BEAKER) (test 2 % jnyr=862) BASOPHILS RELATIVE PERCENT (BEAKER) (test 0 % bkax=135) NEUTROPHILS ABSOLUTE COUNT (BEAKER) (test 6.66 K/ L 1.78-5.38 wnjp=561) LYMPHOCYTES ABSOLUTE COUNT (BEAKER) (test 2.00 K/ L 1.32-3.57 tylu=295) MONOCYTES ABSOLUTE COUNT (BEAKER) (test 0.71 K/ L 0.30-0.82 usiv=997) EOSINOPHILS ABSOLUTE COUNT (BEAKER) (test 0.20 K/ L 0.04-0.54 nfdg=507) BASOPHILS ABSOLUTE COUNT (BEAKER) (test 0.03 K/ L 0.01-0.08 gvpk=140) IMMATURE GRANULOCYTES-RELATIVE PERCENT (BEAKER) 0 % 0-1 (test dcay=8861) CT, CHEST, WITH [id number] 04:21:00FINAL REPORT EXAMINATION: Chest CT with IV [...] Verified Date/Time: 12/08/2018 04:21:30 Reading Location : [address] Reading Room HEPATITIS C PCR, [id number] 21:55: 00 Test Item Value Reference Range Comments HCV RESULT COMPONENT (BEAKER) HCV RNA not detected HCV RNA not detected (test jxse=5063) This test uses a Real-Time Polymerase Chain Reaction (RT-PCR) methodology and was performed using DAVID Ampliprep/DAVID TaqMan HCV test kit version 2.0 ( [employer]).Reportable range for this assay is 15 - 100,000, 000 IU per mL (1.18 - 8.00 Log IU/mL).HEPATIC FUNCTION [id number] 05:54:00 Test Item Value Reference Range Comments TOTAL PROTEIN (BEAKER) (test swob=523) 6.6 gm/dL 6.0-8.3 ALBUMIN (BEAKER) (test rzol=9803) 3.5 g/dL 3.5-5.0 BILIRUBIN TOTAL (BEAKER) (test rnlp=554) 0.3 mg/dL 0.2-1.2 BILIRUBIN DIRECT (BEAKER) (test qdtj=935) 0.2 mg/dL 0.1-0.5 ALKALINE PHOSPHATASE (BEAKER) (test uwff=232) 174 U/L 40-150 AST (SGOT) (BEAKER) (test wdwm=006) 346 U/L 5-34 ALT (SGPT) (BEAKER) (test rjsj=605) 326 U/L 6-55 BASIC METABOLIC [id number] 05:54:00 Test Item Value Reference Range Comments SODIUM (BEAKER) (test 136 meq/L 136-145 vwpw=379) POTASSIUM (BEAKER) (test 4.4 meq/L 3.5-5.1 xaxk=601) CHLORIDE (BEAKER) (test 108 meq/L 98-107 uejg=116) CO2 (BEAKER) (test 21 meq/L 22-29 tyao=352) BLOOD UREA NITROGEN 11 mg/dL 7-21 (BEAKER) (test mbej=095) CREATININE (BEAKER) (test 0.76 mg/dL 0.57-1.25 lwnp=647) GLUCOSE RANDOM (BEAKER) 94 mg/dL 70-105 (test oafn=345) CALCIUM (BEAKER) (test 8.8 mg/dL 8.4-10.2 jrwg=020) EGFR (BEAKER) (test 128 mL/min/1.73 sq m ESTIMATED GFR IS NOT yjlr=8373) ACCURATE CREATININE CLEARANCE IN PREDICTING GLOMERULAR FILTRATION RATE. ESTIMATED GFR IS NOT APPLICABLE FOR DIALYSIS PATIENTS. [id number] 05:33:00 Test Item Value Reference Range Comments PROTIME (BEAKER) (test imta=845) 14.7 seconds 11.9-14.2 INR (BEAKER) (test qcjk=500) 1.2 <=5.9 PARTIAL THROMBOPLASTIN TIME (BEAKER) (test 38.1 seconds 22.5-36.0 hecp=995) Effective 10/21/2018: PT Reference Range ChangeNew: 11.9-14.2 Previous: 11.7- 14.7RECOMMENDED COUMADIN/WARFARIN INR THERAPY RANGESSTANDARD DOSE: 2.0-3.0 Includes: PROPHYLAXIS for venous thrombosis, systemic embolization; TREATMENT for venous thrombosis and/or pulmonary embolus.HIGH RISK: Target INR is2.5-3.5 for patients wiht mechanical heart valves.CBC W/PLT COUNT & AUTO [id number] 05:14:00 Test Item Value Reference Range Comments WHITE BLOOD CELL COUNT (BEAKER) (test nhxm=577) 7.8 K/ L 3.5-10.5 RED BLOOD CELL COUNT (BEAKER) (test fauk=119) 3.82 M/ L 4.63-6.08 HEMOGLOBIN (BEAKER) (test wciz=032) 11.1 GM/DL 13.7-17.5 HEMATOCRIT (BEAKER) (test almy=161) 33.6 % 40.1-51.0 MEAN CORPUSCULAR VOLUME (BEAKER) (test awvw=560) 88.0 fL 79.0-92.2 MEAN CORPUSCULAR HEMOGLOBIN (BEAKER) (test 29.1 pg 25.7-32.2 erqg=827) MEAN CORPUSCULAR HEMOGLOBIN CONC (BEAKER) (test 33.0 GM/DL 32.3-36.5 bqvh=315) RED CELL DISTRIBUTION WIDTH (BEAKER) (test 13.7 % 11.6-14.4 kufq=466) PLATELET COUNT (BEAKER) (test jxxk=742) 399 K/CU MM 150-450 MEAN PLATELET VOLUME (BEAKER) (test dvni=230) 9.4 fL 9.4-12.4 NUCLEATED RED BLOOD CELLS (BEAKER) (test 0 /100 WBC 0-0 hmih=135) NEUTROPHILS RELATIVE PERCENT (BEAKER) (test 62 % jvzb=818) LYMPHOCYTES RELATIVE PERCENT (BEAKER) (test 28 % vywc=654) MONOCYTES RELATIVE PERCENT (BEAKER) (test 7 % zwaz=462) EOSINOPHILS RELATIVE PERCENT (BEAKER) (test 3 % mesl=588) BASOPHILS RELATIVE PERCENT (BEAKER) (test 0 % perj=522) NEUTROPHILS ABSOLUTE COUNT (BEAKER) (test 4.87 K/ L 1.78-5.38 zvny=850) LYMPHOCYTES ABSOLUTE COUNT (BEAKER) (test 2.17 K/ L 1.32-3.57 rxnk=452) MONOCYTES ABSOLUTE COUNT (BEAKER) (test 0.57 K/ L 0.30-0.82 kjte=879) EOSINOPHILS ABSOLUTE COUNT (BEAKER) (test 0.20 K/ L 0.04-0.54 hafi=337) BASOPHILS ABSOLUTE COUNT (BEAKER) (test 0.02 K/ L 0.01-0.08 uclc=868) IMMATURE GRANULOCYTES-RELATIVE PERCENT (BEAKER) 0 % 0-1 (test ortt=2554) MR, ABDOMEN, [id number] 10:49:00FINAL REPORT MRI of the abdomen dated [...] MDReport Verified Date/Time: 12/06/2018 10:49:29 Reading Location: [address] Body Reading Room CARCINOEMBRYONIC ANTIGEN (CEA)2018-12-06 07:14:00 Test Item Value Reference Range Comments CARCINOEMBRYONIC ANTIGEN (BEAKER) (test vnvv=033) 0.7 ng/mL 0.0-5.0 HEPATIC FUNCTION [id number] 07:10:00 Test Item Value Reference Range Comments TOTAL PROTEIN (BEAKER) (test byce=287) 6.6 gm/dL 6.0-8.3 ALBUMIN (BEAKER) (test ojbh=3570) 3.5 g/dL 3.5-5.0 BILIRUBIN TOTAL (BEAKER) (test ufpz=255) 0.3 mg/dL 0.2-1.2 BILIRUBIN DIRECT (BEAKER) (test jrxw=070) 0.1 mg/dL 0.1-0.5 ALKALINE PHOSPHATASE (BEAKER) (test jabn=163) 158 U/L 40-150 AST (SGOT) (BEAKER) (test xfoq=110) 249 U/L 5-34 ALT (SGPT) (BEAKER) (test lvlb=216) 151 U/L 6-55 BASIC METABOLIC [id number] 07:10:00 Test Item Value Reference Range Comments SODIUM (BEAKER) (test 136 meq/L 136-145 yowf=578) POTASSIUM (BEAKER) (test 4.0 meq/L 3.5-5.1 clvh=705) CHLORIDE (BEAKER) (test 107 meq/L 98-107 llwg=890) CO2 (BEAKER) (test 22 meq/L 22-29 prvi=806) BLOOD UREA NITROGEN 10 mg/dL 7-21 (BEAKER) (test zneq=328) CREATININE (BEAKER) (test 0.74 mg/dL 0.57-1.25 udar=948) GLUCOSE RANDOM (BEAKER) 86 mg/dL 70-105 (test wdyk=182) CALCIUM (BEAKER) (test 8.8 mg/dL 8.4-10.2 prnv=887) EGFR (BEAKER) (test 132 mL/min/1.73 sq m ESTIMATED GFR IS NOT dguc=4284) ACCURATE CREATININE CLEARANCE IN PREDICTING GLOMERULAR FILTRATION RATE. ESTIMATED GFR IS NOT APPLICABLE FOR DIALYSIS PATIENTS. PT/[id number] 06:27:00 Test Item Value Reference Range Comments PROTIME (BEAKER) (test kfaz=718) 14.1 seconds 11.9-14.2 INR (BEAKER) (test blwq=491) 1.2 <=5.9 PARTIAL THROMBOPLASTIN TIME (BEAKER) (test 41.1 seconds 22.5-36.0 neiv=283) Effective 10/21/2018: PT Reference Range ChangeNew: 11.9-14.2 Previous: 11.7- 14.7RECOMMENDED COUMADIN/WARFARIN INR THERAPY RANGESSTANDARD DOSE: 2.0-3.0 Includes: PROPHYLAXIS for venous thrombosis, systemic embolization; TREATMENT for venous thrombosis and/or pulmonary embolus.HIGH RISK: Target INR is2.5-3.5 for patients wiht mechanical heart valves.CBC W/PLT COUNT & AUTO [id number] 06:18:00 Test Item Value Reference Range Comments WHITE BLOOD CELL COUNT (BEAKER) (test obpn=679) 7.9 K/ L 3.5-10.5 RED BLOOD CELL COUNT (BEAKER) (test pmrn=591) 3.79 M/ L 4.63-6.08 HEMOGLOBIN (BEAKER) (test liwd=111) 11.0 GM/DL 13.7-17.5 HEMATOCRIT (BEAKER) (test exzo=851) 33.1 % 40.1-51.0 MEAN CORPUSCULAR VOLUME (BEAKER) (test nljx=688) 87.3 fL 79.0-92.2 MEAN CORPUSCULAR HEMOGLOBIN (BEAKER) (test 29.0 pg 25.7-32.2 xzaj=651) MEAN CORPUSCULAR HEMOGLOBIN CONC (BEAKER) (test 33.2 GM/DL 32.3-36.5 gfbg=797) RED CELL DISTRIBUTION WIDTH (BEAKER) (test 13.7 % 11.6-14.4 aptx=068) PLATELET COUNT (BEAKER) (test imbw=836) 422 K/CU MM 150-450 MEAN PLATELET VOLUME (BEAKER) (test xcsk=490) 9.4 fL 9.4-12.4 NUCLEATED RED BLOOD CELLS (BEAKER) (test 0 /100 WBC 0-0 rrjb=337) NEUTROPHILS RELATIVE PERCENT (BEAKER) (test 58 % otfd=865) LYMPHOCYTES RELATIVE PERCENT (BEAKER) (test 33 % kdxi=088) MONOCYTES RELATIVE PERCENT (BEAKER) (test 7 % nufb=696) EOSINOPHILS RELATIVE PERCENT (BEAKER) (test 2 % fift=831) BASOPHILS RELATIVE PERCENT (BEAKER) (test 0 % fyib=850) NEUTROPHILS ABSOLUTE COUNT (BEAKER) (test 4.55 K/ L 1.78-5.38 oldv=362) LYMPHOCYTES ABSOLUTE COUNT (BEAKER) (test 2.59 K/ L 1.32-3.57 jodb=215) MONOCYTES ABSOLUTE COUNT (BEAKER) (test 0.55 K/ L 0.30-0.82 zbms=341) EOSINOPHILS ABSOLUTE COUNT (BEAKER) (test 0.15 K/ L 0.04-0.54 ijox=809) BASOPHILS ABSOLUTE COUNT (BEAKER) (test 0.02 K/ L 0.01-0.08 qoae=313) IMMATURE GRANULOCYTES-RELATIVE PERCENT (BEAKER) 0 % 0-1 (test mclr=5519) HEPATITIS PANEL, [id number] 07:04:00 Test Item Value Reference Range Comments HEPATITIS A IGM ANTIBODY (BEAKER) (test Nonreactive Nonreactive hptv=115) HEPATITIS B CORE IGM ANTIBODY (BEAKER) (test Nonreactive Nonreactive bpki=553) HEPATITIS C ANTIBODY (BEAKER) (test btfs=324) Reactive Nonreactive HEPATITIS B SURFACE ANTIGEN (2) (BEAKER) (test Nonreactive Nonreactive guyk=1001) [id number] 06:52:00 Test Item Value Reference Range Comments MAGNESIUM (BEAKER) (test dprl=418) 2.1 mg/dL 1.6-2.6 COMPREHENSIVE METABOLIC [id number] 06:52:00 Test Item Value Reference Range Comments TOTAL PROTEIN (BEAKER) 7.2 gm/dL 6.0-8.3 (test qilf=670) ALBUMIN (BEAKER) (test 3.8 g/dL 3.5-5.0 inyc=7507) ALKALINE PHOSPHATASE 148 U/L 40-150 (BEAKER) (test vuwm=615) BILIRUBIN TOTAL (BEAKER) 0.3 mg/dL 0.2-1.2 (test bayw=512) SODIUM (BEAKER) (test 131 meq/L 136-145 dlgk=119) POTASSIUM (BEAKER) (test 4.0 meq/L 3.5-5.1 fdlp=975) CHLORIDE (BEAKER) (test 100 meq/L 98-107 rznw=671) CO2 (BEAKER) (test 24 meq/L 22-29 gdwm=350) BLOOD UREA NITROGEN 12 mg/dL 7-21 (BEAKER) (test xyji=019) CREATININE (BEAKER) (test 0.91 mg/dL 0.57-1.25 ysdf=201) GLUCOSE RANDOM (BEAKER) 98 mg/dL 70-105 (test twvw=682) CALCIUM (BEAKER) (test 8.9 mg/dL 8.4-10.2 zkij=546) AST (SGOT) (BEAKER) (test 135 U/L 5-34 njhp=655) ALT (SGPT) (BEAKER) (test 81 U/L 6-55 ngql=780) EGFR (BEAKER) (test 104 mL/min/1.73 sq ESTIMATED GFR IS NOT wcjk=0533) m ACCURATE CREATININE CLEARANCE IN PREDICTING GLOMERULAR FILTRATION RATE. ESTIMATED GFR IS NOT APPLICABLE FOR DIALYSIS PATIENTS. PT/[id number] 05:58:00 Test Item Value Reference Range Comments PROTIME (BEAKER) (test xtrw=449) 13.9 seconds 11.9-14.2 INR (BEAKER) (test helu=430) 1.1 <=5.9 PARTIAL THROMBOPLASTIN TIME (BEAKER) (test 37.6 seconds 22.5-36.0 tpjj=539) Effective 10/21/2018: PT Reference Range ChangeNew: 11.9-14.2 Previous: 11.7- 14.7RECOMMENDED COUMADIN/WARFARIN INR THERAPY RANGESSTANDARD DOSE: 2.0-3.0 Includes: PROPHYLAXIS for venous thrombosis, systemic embolization; TREATMENT for venous thrombosis and/or pulmonary embolus.HIGH RISK: Target INR is2.5-3.5 for patients wiht mechanical heart valves.CBC W/PLT COUNT & AUTO [id number] 05:35:00 Test Item Value Reference Range Comments WHITE BLOOD CELL COUNT (BEAKER) (test rawd=132) 9.1 K/ L 3.5-10.5 RED BLOOD CELL COUNT (BEAKER) (test nucd=671) 4.18 M/ L 4.63-6.08 HEMOGLOBIN (BEAKER) (test vxuy=595) 12.0 GM/DL 13.7-17.5 HEMATOCRIT (BEAKER) (test gqii=644) 36.0 % 40.1-51.0 MEAN CORPUSCULAR VOLUME (BEAKER) (test fuzy=652) 86.1 fL 79.0-92.2 MEAN CORPUSCULAR HEMOGLOBIN (BEAKER) (test 28.7 pg 25.7-32.2 yvep=796) MEAN CORPUSCULAR HEMOGLOBIN CONC (BEAKER) (test 33.3 GM/DL 32.3-36.5 iycz=706) RED CELL DISTRIBUTION WIDTH (BEAKER) (test 13.4 % 11.6-14.4 yaba=324) PLATELET COUNT (BEAKER) (test fsbr=024) 477 K/CU MM 150-450 MEAN PLATELET VOLUME (BEAKER) (test eksh=272) 9.2 fL 9.4-12.4 NUCLEATED RED BLOOD CELLS (BEAKER) (test 0 /100 WBC 0-0 cbwy=529) NEUTROPHILS RELATIVE PERCENT (BEAKER) (test 58 % bfko=024) LYMPHOCYTES RELATIVE PERCENT (BEAKER) (test 33 % aouo=439) MONOCYTES RELATIVE PERCENT (BEAKER) (test 7 % upxz=919) EOSINOPHILS RELATIVE PERCENT (BEAKER) (test 2 % gpym=255) BASOPHILS RELATIVE PERCENT (BEAKER) (test 0 % wbzr=519) NEUTROPHILS ABSOLUTE COUNT (BEAKER) (test 5.24 K/ L 1.78-5.38 kslh=258) LYMPHOCYTES ABSOLUTE COUNT (BEAKER) (test 2.94 K/ L 1.32-3.57 ntnh=524) MONOCYTES ABSOLUTE COUNT (BEAKER) (test 0.66 K/ L 0.30-0.82 kxzt=534) EOSINOPHILS ABSOLUTE COUNT (BEAKER) (test 0.16 K/ L 0.04-0.54 loes=064) BASOPHILS ABSOLUTE COUNT (BEAKER) (test 0.03 K/ L 0.01-0.08 cgcb=441) IMMATURE GRANULOCYTES-RELATIVE PERCENT (BEAKER) 0 % 0-1 (test qwed=5951) ALPHA FETOPROTEIN (AFP), TUMOR [id number] 02:51:00 Test Item Value Reference Range Comments ALPHA-FETOPROTEIN (BEAKER) (test ntug=8242) > ng/mL <10.0 BLOOD [id number] 18:00:00 Test Item Value Reference Range Comments CULTURE (BEAKER) (test gdlv=9957) No growth in 5 days BLOOD [id number] 18:00:00 Test Item Value Reference Range Comments CULTURE (BEAKER) (test qsab=8788) No growth in 5 days BLOOD [id number] 00:00:00 Test Item Value Reference Range Comments CULTURE (BEAKER) (test audd=2735) No growth in 5 days BASIC METABOLIC [id number] 05:57:00 Test Item Value Reference Range Comments SODIUM (BEAKER) (test 139 meq/L 136-145 mgua=312) POTASSIUM (BEAKER) (test 3.5 meq/L 3.5-5.1 imcw=543) CHLORIDE (BEAKER) (test 105 meq/L 98-107 xpmi=783) CO2 (BEAKER) (test 25 meq/L 22-29 acvn=886) BLOOD UREA NITROGEN 8 mg/dL 7-21 (BEAKER) (test efdy=707) CREATININE (BEAKER) (test 0.78 mg/dL 0.57-1.25 botc=049) GLUCOSE RANDOM (BEAKER) 119 mg/dL 70-105 (test wtgd=999) CALCIUM (BEAKER) (test 8.9 mg/dL 8.4-10.2 nelb=095) EGFR (BEAKER) (test 124 mL/min/1.73 sq m ESTIMATED GFR IS NOT zszp=3656) ACCURATE CREATININE CLEARANCE IN PREDICTING GLOMERULAR FILTRATION RATE. ESTIMATED GFR IS NOT APPLICABLE FOR DIALYSIS PATIENTS. CBC W/PLT COUNT & AUTO [id number] 05:11:00 Test Item Value Reference Range Comments WHITE BLOOD CELL COUNT (BEAKER) (test ujdi=773) 10.2 K/ L 3.5-10.5 RED BLOOD CELL COUNT (BEAKER) (test pfrt=005) 3.90 M/ L 4.63-6.08 HEMOGLOBIN (BEAKER) (test qcmq=182) 12.0 GM/DL 13.7-17.5 HEMATOCRIT (BEAKER) (test vsrt=006) 35.3 % 40.1-51.0 MEAN CORPUSCULAR VOLUME (BEAKER) (test afik=708) 90.5 fL 79.0-92.2 MEAN CORPUSCULAR HEMOGLOBIN (BEAKER) (test 30.8 pg 25.7-32.2 vgrk=532) MEAN CORPUSCULAR HEMOGLOBIN CONC (BEAKER) (test 34.0 GM/DL 32.3-36.5 gybg=313) RED CELL DISTRIBUTION WIDTH (BEAKER) (test 13.3 % 11.6-14.4 iusq=333) PLATELET COUNT (BEAKER) (test uniw=871) 233 K/CU MM 150-450 MEAN PLATELET VOLUME (BEAKER) (test tnwl=709) 10.9 fL 9.4-12.4 NUCLEATED RED BLOOD CELLS (BEAKER) (test 0 /100 WBC 0-0 lqqa=501) NEUTROPHILS RELATIVE PERCENT (BEAKER) (test 58 % ulaj=810) LYMPHOCYTES RELATIVE PERCENT (BEAKER) (test 25 % tbfz=342) MONOCYTES RELATIVE PERCENT (BEAKER) (test 11 % wdtu=208) EOSINOPHILS RELATIVE PERCENT (BEAKER) (test 5 % yvhy=188) BASOPHILS RELATIVE PERCENT (BEAKER) (test 1 % kknu=231) NEUTROPHILS ABSOLUTE COUNT (BEAKER) (test 5.92 K/ L 1.78-5.38 qzzl=915) LYMPHOCYTES ABSOLUTE COUNT (BEAKER) (test 2.51 K/ L 1.32-3.57 todb=326) MONOCYTES ABSOLUTE COUNT (BEAKER) (test 1.12 K/ L 0.30-0.82 iban=762) EOSINOPHILS ABSOLUTE COUNT (BEAKER) (test 0.50 K/ L 0.04-0.54 xldl=886) BASOPHILS ABSOLUTE COUNT (BEAKER) (test 0.06 K/ L 0.01-0.08 kmia=658) IMMATURE GRANULOCYTES-RELATIVE PERCENT (BEAKER) 0 % 0-1 (test oamd=4103) [id number] 07:07:00 Test Item Value Reference Range Comments PARTIAL THROMBOPLASTIN TIME (BEAKER) (test 107.0 seconds 22.5-36.0 jvwr=281) [id number] 06:15:00 Test Item Value Reference Range Comments PARTIAL THROMBOPLASTIN TIME (BEAKER) (test 117.6 seconds 22.5-36.0 nqsx=100) [id number] 05:49:00 Test Item Value Reference Range Comments PARTIAL THROMBOPLASTIN TIME (BEAKER) (test 96.1 seconds 22.5-36.0 wwkp=326) BASIC METABOLIC [id number] 05:21:00 Test Item Value Reference Range Comments SODIUM (BEAKER) (test 137 meq/L 136-145 wymj=948) POTASSIUM (BEAKER) (test 3.8 meq/L 3.5-5.1 tgqj=744) CHLORIDE (BEAKER) (test 104 meq/L 98-107 ubhe=413) CO2 (BEAKER) (test 24 meq/L 22-29 hoid=450) BLOOD UREA NITROGEN 9 mg/dL 7-21 (BEAKER) (test mtss=000) CREATININE (BEAKER) (test 0.80 mg/dL 0.57-1.25 afze=735) GLUCOSE RANDOM (BEAKER) 93 mg/dL 70-105 (test lqya=067) CALCIUM (BEAKER) (test 8.7 mg/dL 8.4-10.2 huca=447) EGFR (BEAKER) (test 121 mL/min/1.73 sq m ESTIMATED GFR IS NOT oklr=7164) ACCURATE CREATININE CLEARANCE IN PREDICTING GLOMERULAR FILTRATION RATE. ESTIMATED GFR IS NOT APPLICABLE FOR DIALYSIS PATIENTS. CBC W/PLT COUNT & AUTO [id number] 04:58:00 Test Item Value Reference Range Comments WHITE BLOOD CELL COUNT (BEAKER) (test dqgc=109) 11.2 K/ L 3.5-10.5 RED BLOOD CELL COUNT (BEAKER) (test utsw=931) 3.92 M/ L 4.63-6.08 HEMOGLOBIN (BEAKER) (test xeqn=604) 12.0 GM/DL 13.7-17.5 HEMATOCRIT (BEAKER) (test xyuk=164) 35.0 % 40.1-51.0 MEAN CORPUSCULAR VOLUME (BEAKER) (test kmgd=315) 89.3 fL 79.0-92.2 MEAN CORPUSCULAR HEMOGLOBIN (BEAKER) (test 30.6 pg 25.7-32.2 prgs=815) MEAN CORPUSCULAR HEMOGLOBIN CONC (BEAKER) (test 34.3 GM/DL 32.3-36.5 vmdj=953) RED CELL DISTRIBUTION WIDTH (BEAKER) (test 13.3 % 11.6-14.4 ffzb=667) PLATELET COUNT (BEAKER) (test stwb=038) 222 K/CU MM 150-450 MEAN PLATELET VOLUME (BEAKER) (test fawc=424) 10.6 fL 9.4-12.4 NUCLEATED RED BLOOD CELLS (BEAKER) (test 0 /100 WBC 0-0 zvfs=673) NEUTROPHILS RELATIVE PERCENT (BEAKER) (test 53 % srii=696) LYMPHOCYTES RELATIVE PERCENT (BEAKER) (test 32 % kmmr=219) MONOCYTES RELATIVE PERCENT (BEAKER) (test 11 % kqpt=105) EOSINOPHILS RELATIVE PERCENT (BEAKER) (test 4 % orij=309) BASOPHILS RELATIVE PERCENT (BEAKER) (test 0 % spib=460) NEUTROPHILS ABSOLUTE COUNT (BEAKER) (test 6.00 K/ L 1.78-5.38 hnta=139) LYMPHOCYTES ABSOLUTE COUNT (BEAKER) (test 3.57 K/ L 1.32-3.57 zqfr=672) MONOCYTES ABSOLUTE COUNT (BEAKER) (test 1.20 K/ L 0.30-0.82 vykm=754) EOSINOPHILS ABSOLUTE COUNT (BEAKER) (test 0.40 K/ L 0.04-0.54 syrq=556) BASOPHILS ABSOLUTE COUNT (BEAKER) (test 0.03 K/ L 0.01-0.08 tzud=034) IMMATURE GRANULOCYTES-RELATIVE PERCENT (BEAKER) 0 % 0-1 (test wsio=4361) [id number] 21:35:00 Test Item Value Reference Range Comments PARTIAL THROMBOPLASTIN TIME (BEAKER) (test 89.5 seconds 22.5-36.0 lwvb=700) [id number] 15:44:00 Test Item Value Reference Range Comments PARTIAL THROMBOPLASTIN TIME (BEAKER) (test 85.8 seconds 22.5-36.0 mpop=221) [id number] 09:50:00 Test Item Value Reference Range Comments PARTIAL THROMBOPLASTIN TIME (BEAKER) (test 53.6 seconds 22.5-36.0 cpfq=360) BASIC METABOLIC [id number] 06:24:00 Test Item Value Reference Range Comments SODIUM (BEAKER) (test 137 meq/L 136-145 cdvm=963) POTASSIUM (BEAKER) (test 3.8 meq/L 3.5-5.1 pjlc=091) CHLORIDE (BEAKER) (test 105 meq/L 98-107 jzsc=110) CO2 (BEAKER) (test 24 meq/L 22-29 wati=641) BLOOD UREA NITROGEN 11 mg/dL 7-21 (BEAKER) (test saka=354) CREATININE (BEAKER) (test 0.76 mg/dL 0.57-1.25 mywn=851) GLUCOSE RANDOM (BEAKER) 94 mg/dL 70-105 (test yrez=650) CALCIUM (BEAKER) (test 8.5 mg/dL 8.4-10.2 tcsv=878) EGFR (BEAKER) (test 128 mL/min/1.73 sq m ESTIMATED GFR IS NOT vtcw=9652) ACCURATE CREATININE CLEARANCE IN PREDICTING GLOMERULAR FILTRATION RATE. ESTIMATED GFR IS NOT APPLICABLE FOR DIALYSIS PATIENTS. CBC W/PLT COUNT & AUTO [id number] 06:22:00 Test Item Value Reference Range Comments WHITE BLOOD CELL COUNT (BEAKER) (test rqiv=056) 12.3 K/ L 3.5-10.5 RED BLOOD CELL COUNT (BEAKER) (test xhuj=015) 4.01 M/ L 4.63-6.08 HEMOGLOBIN (BEAKER) (test yxoo=693) 12.1 GM/DL 13.7-17.5 HEMATOCRIT (BEAKER) (test vlse=979) 36.4 % 40.1-51.0 MEAN CORPUSCULAR VOLUME (BEAKER) (test pllo=094) 90.8 fL 79.0-92.2 MEAN CORPUSCULAR HEMOGLOBIN (BEAKER) (test 30.2 pg 25.7-32.2 uwje=749) MEAN CORPUSCULAR HEMOGLOBIN CONC (BEAKER) (test 33.2 GM/DL 32.3-36.5 mohx=002) RED CELL DISTRIBUTION WIDTH (BEAKER) (test 13.4 % 11.6-14.4 vsbr=602) PLATELET COUNT (BEAKER) (test ypld=458) 233 K/CU MM 150-450 MEAN PLATELET VOLUME (BEAKER) (test phwa=276) 10.7 fL 9.4-12.4 NUCLEATED RED BLOOD CELLS (BEAKER) (test 0 /100 WBC 0-0 yrgm=020) NEUTROPHILS RELATIVE PERCENT (BEAKER) (test 70 % xhmf=903) LYMPHOCYTES RELATIVE PERCENT (BEAKER) (test 21 % dora=568) MONOCYTES RELATIVE PERCENT (BEAKER) (test 7 % lmpy=108) EOSINOPHILS RELATIVE PERCENT (BEAKER) (test 2 % ytqt=790) BASOPHILS RELATIVE PERCENT (BEAKER) (test 0 % evaq=523) NEUTROPHILS ABSOLUTE COUNT (BEAKER) (test 8.59 K/ L 1.78-5.38 mzyd=318) LYMPHOCYTES ABSOLUTE COUNT (BEAKER) (test 2.52 K/ L 1.32-3.57 deyb=268) MONOCYTES ABSOLUTE COUNT (BEAKER) (test 0.86 K/ L 0.30-0.82 cuky=182) EOSINOPHILS ABSOLUTE COUNT (BEAKER) (test 0.23 K/ L 0.04-0.54 nkga=195) BASOPHILS ABSOLUTE COUNT (BEAKER) (test 0.03 K/ L 0.01-0.08 tqwk=641) IMMATURE GRANULOCYTES-RELATIVE PERCENT (JOSELYN) 0 % 0-1 (test muww=1504) [id number] 17:27:00 Test Item Value Reference Range Comments ACTIVATED CLOTTING TIME [address] [facility] [address] (JOSELYN) (test dvrk=397) [facility] [address] CT, CTA AAA, W/ [place].EXT.[id number] 15:50:00Please page me when done. Need stat cta for surgery. Thanks.Addendum BeginsREPORT STATUS:A Addendum: I reviewed the nonvascular features of this examination and concur with Dr. Restrepo's report. Signed: Juan Esparza MDReport Verified Date/ Time: 03/04/2018 15:50:09 Reading Location: [place] [address] Angio Body Reading RoomAddendum EndsFINAL REPORT CT [...] dynamic data set. In the right, the [place] right SFA is occluded. The right profunda [...] femoral bypass graft is identified. 3. The [place] left SFA is occluded. The right SFA [...] dictated regarding the non-vascular findings by the Job Training Specialist Radiologist. Signed: Shawn Restrepo MDReport Verified Date/Time: 03/04/2018 07:12:51 Reading Location: [place] [id number] MRI [id number] 10:51:00 Test Item Value Reference Range Comments PARTIAL THROMBOPLASTIN TIME (BEAKER) (test 66.0 seconds 22.5-36.0 eukn=261) BASIC METABOLIC [id number] 02:33:00 Test Item Value Reference Range Comments SODIUM (BEAKER) (test 137 meq/L 136-145 prfh=204) POTASSIUM (BEAKER) (test 3.8 meq/L 3.5-5.1 hfkk=876) CHLORIDE (BEAKER) (test 106 meq/L 98-107 pqmr=834) CO2 (BEAKER) (test 21 meq/L 22-29 ofou=697) BLOOD UREA NITROGEN 7 mg/dL 7-21 (BEAKER) (test usra=629) CREATININE (BEAKER) (test 0.77 mg/dL 0.57-1.25 uszk=222) GLUCOSE RANDOM (BEAKER) 96 mg/dL 70-105 (test nqvm=325) CALCIUM (BEAKER) (test 9.1 mg/dL 8.4-10.2 mmts=737) EGFR (BEAKER) (test 126 mL/min/1.73 sq m ESTIMATED GFR IS NOT hxsb=9412) ACCURATE CREATININE CLEARANCE IN PREDICTING GLOMERULAR FILTRATION RATE. ESTIMATED GFR IS NOT APPLICABLE FOR DIALYSIS PATIENTS. [id number] 02:28:00 Test Item Value Reference Range Comments PARTIAL THROMBOPLASTIN TIME (BEAKER) (test 44.6 seconds 22.5-36.0 vyqh=936) CBC W/PLT COUNT & AUTO [id number] 02:20:00 Test Item Value Reference Range Comments WHITE BLOOD CELL COUNT (BEAKER) (test jmzp=369) 10.5 K/ L 3.5-10.5 RED BLOOD CELL COUNT (BEAKER) (test ibtn=651) 4.55 M/ L 4.63-6.08 HEMOGLOBIN (BEAKER) (test tlbq=216) 14.0 GM/DL 13.7-17.5 HEMATOCRIT (BEAKER) (test suwt=510) 40.5 % 40.1-51.0 MEAN CORPUSCULAR VOLUME (BEAKER) (test mltk=794) 89.0 fL 79.0-92.2 MEAN CORPUSCULAR HEMOGLOBIN (BEAKER) (test 30.8 pg 25.7-32.2 oseg=279) MEAN CORPUSCULAR HEMOGLOBIN CONC (BEAKER) (test 34.6 GM/DL 32.3-36.5 fkrw=729) RED CELL DISTRIBUTION WIDTH (BEAKER) (test 13.3 % 11.6-14.4 agfz=666) PLATELET COUNT (BEAKER) (test cbuv=863) 262 K/CU MM 150-450 MEAN PLATELET VOLUME (BEAKER) (test oyrv=305) 10.1 fL 9.4-12.4 NUCLEATED RED BLOOD CELLS (BEAKER) (test 0 /100 WBC 0-0 cmmt=140) NEUTROPHILS RELATIVE PERCENT (BEAKER) (test 57 % owzf=136) LYMPHOCYTES RELATIVE PERCENT (BEAKER) (test 32 % kohu=610) MONOCYTES RELATIVE PERCENT (BEAKER) (test 7 % llio=354) EOSINOPHILS RELATIVE PERCENT (BEAKER) (test 3 % bhre=602) BASOPHILS RELATIVE PERCENT (BEAKER) (test 1 % lxld=769) NEUTROPHILS ABSOLUTE COUNT (BEAKER) (test 6.00 K/ L 1.78-5.38 zhvi=503) LYMPHOCYTES ABSOLUTE COUNT (BEAKER) (test 3.38 K/ L 1.32-3.57 zwfk=667) MONOCYTES ABSOLUTE COUNT (BEAKER) (test 0.74 K/ L 0.30-0.82 fpnw=053) EOSINOPHILS ABSOLUTE COUNT (BEAKER) (test 0.34 K/ L 0.04-0.54 wuln=121) BASOPHILS ABSOLUTE COUNT (BEAKER) (test 0.05 K/ L 0.01-0.08 kvgy=996) IMMATURE GRANULOCYTES-RELATIVE PERCENT (BEAKER) 0 % 0-1 (test engd=7172) [id number] 23:51:00 Test Item Value Reference Range Comments PARTIAL THROMBOPLASTIN TIME (BEAKER) (test > seconds 22.5-36.0 ramo=453) [id number] 15:27:00 Test Item Value Reference Range Comments PARTIAL THROMBOPLASTIN TIME (BEAKER) (test 56.5 seconds 22.5-36.0 lhwp=782) RAD, FOOT, MIN 3 VIEWS, [id number] 08:43:00Reason for exam:->Foot ulcer - r/o osteoFINAL [...] MDReport Verified Date/Time: 03/03/2018 08:43:54 Reading Location: [facility] Radiology Reading Room [id number] 08:24:00 Test Item Value Reference Range Comments PARTIAL THROMBOPLASTIN TIME (BEAKER) (test 67.3 seconds 22.5-36.0 kwsu=105) [id number] 06:15:00 Test Item Value Reference Range Comments PARTIAL THROMBOPLASTIN TIME (BEAKER) (test 180.5 seconds 22.5-36.0 firr=641) Prior to initiating heparinBASIC METABOLIC [id number] 04:42:00 Test Item Value Reference Range Comments SODIUM (BEAKER) (test 139 meq/L 136-145 cpsi=592) POTASSIUM (BEAKER) (test 3.6 meq/L 3.5-5.1 abmq=962) CHLORIDE (BEAKER) (test 108 meq/L 98-107 pgur=157) CO2 (BEAKER) (test 25 meq/L 22-29 xbjv=832) BLOOD UREA NITROGEN 8 mg/dL 7-21 (BEAKER) (test rsvr=593) CREATININE (BEAKER) (test 0.77 mg/dL 0.57-1.25 oftf=763) GLUCOSE RANDOM (BEAKER) 95 mg/dL 70-105 (test ebxb=262) CALCIUM (BEAKER) (test 8.7 mg/dL 8.4-10.2 kejo=095) EGFR (BEAKER) (test 126 mL/min/1.73 sq m ESTIMATED GFR IS NOT klkt=5673) ACCURATE CREATININE CLEARANCE IN PREDICTING GLOMERULAR FILTRATION RATE. ESTIMATED GFR IS NOT APPLICABLE FOR DIALYSIS PATIENTS. CBC W/PLT COUNT & AUTO [id number] 04:31:00 Test Item Value Reference Range Comments WHITE BLOOD CELL COUNT (BEAKER) (test dgqy=605) 9.4 K/ L 3.5-10.5 RED BLOOD CELL COUNT (BEAKER) (test qxmw=794) 4.41 M/ L 4.63-6.08 HEMOGLOBIN (BEAKER) (test jqap=939) 13.4 GM/DL 13.7-17.5 HEMATOCRIT (BEAKER) (test tftc=478) 39.5 % 40.1-51.0 MEAN CORPUSCULAR VOLUME (BEAKER) (test ritk=642) 89.6 fL 79.0-92.2 MEAN CORPUSCULAR HEMOGLOBIN (BEAKER) (test 30.4 pg 25.7-32.2 bdev=930) MEAN CORPUSCULAR HEMOGLOBIN CONC (BEAKER) (test 33.9 GM/DL 32.3-36.5 xwel=930) RED CELL DISTRIBUTION WIDTH (BEAKER) (test 13.4 % 11.6-14.4 qbkz=971) PLATELET COUNT (BEAKER) (test wfwh=552) 241 K/CU MM 150-450 MEAN PLATELET VOLUME (BEAKER) (test pzmu=408) 10.2 fL 9.4-12.4 NUCLEATED RED BLOOD CELLS (BEAKER) (test 0 /100 WBC 0-0 olqo=237) NEUTROPHILS RELATIVE PERCENT (BEAKER) (test 51 % fdtn=688) LYMPHOCYTES RELATIVE PERCENT (BEAKER) (test 38 % rryt=242) MONOCYTES RELATIVE PERCENT (BEAKER) (test 7 % gupg=791) EOSINOPHILS RELATIVE PERCENT (BEAKER) (test 4 % ibxn=478) BASOPHILS RELATIVE PERCENT (BEAKER) (test 0 % brgm=881) NEUTROPHILS ABSOLUTE COUNT (BEAKER) (test 4.77 K/ L 1.78-5.38 zoav=722) LYMPHOCYTES ABSOLUTE COUNT (BEAKER) (test 3.51 K/ L 1.32-3.57 fsnl=056) MONOCYTES ABSOLUTE COUNT (BEAKER) (test 0.67 K/ L 0.30-0.82 vnfn=102) EOSINOPHILS ABSOLUTE COUNT (BEAKER) (test 0.37 K/ L 0.04-0.54 itfq=113) BASOPHILS ABSOLUTE COUNT (BEAKER) (test 0.03 K/ L 0.01-0.08 socc=434) IMMATURE GRANULOCYTES-RELATIVE PERCENT (BEAKER) 0 % 0-1 (test ksix=7321) [id number] 22:31:00 Test Item Value Reference Range Comments PARTIAL THROMBOPLASTIN TIME (BEAKER) (test 31.2 seconds 22.5-36.0 qxge=661) Prior to initiating heparinBASIC METABOLIC [id number] 18:30:00 Test Item Value Reference Range Comments SODIUM (BEAKER) (test 139 meq/L 136-145 enlq=895) POTASSIUM (BEAKER) (test 3.6 meq/L 3.5-5.1 cqao=038) CHLORIDE (BEAKER) (test 106 meq/L 98-107 tivj=811) CO2 (BEAKER) (test 21 meq/L 22-29 txqk=159) BLOOD UREA NITROGEN 8 mg/dL 7-21 (BEAKER) (test sqes=994) CREATININE (BEAKER) (test 0.83 mg/dL 0.57-1.25 ufaa=706) GLUCOSE RANDOM (BEAKER) 110 mg/dL 70-105 (test kddm=017) CALCIUM (BEAKER) (test 9.7 mg/dL 8.4-10.2 bxbr=679) EGFR (BEAKER) (test 116 mL/min/1.73 sq m ESTIMATED GFR IS NOT kiww=4008) ACCURATE CREATININE CLEARANCE IN PREDICTING GLOMERULAR FILTRATION RATE. ESTIMATED GFR IS NOT APPLICABLE FOR DIALYSIS PATIENTS. C-REACTIVE [id number] 18:30:00 Test Item Value Reference Range Comments C-REACTIVE PROTEIN (BEAKER) (test rhpn=528) 0.04 mg/dL 0.00-0.50 CBC W/PLT COUNT & AUTO [id number] 18:13:00 Test Item Value Reference Range Comments WHITE BLOOD CELL COUNT (BEAKER) (test uzqs=482) 10.2 K/ L 3.5-10.5 RED BLOOD CELL COUNT (BEAKER) (test biwr=275) 4.65 M/ L 4.63-6.08 HEMOGLOBIN (BEAKER) (test oofg=522) 14.3 GM/DL 13.7-17.5 HEMATOCRIT (BEAKER) (test xfcq=584) 40.7 % 40.1-51.0 MEAN CORPUSCULAR VOLUME (BEAKER) (test ehve=891) 87.5 fL 79.0-92.2 MEAN CORPUSCULAR HEMOGLOBIN (BEAKER) (test 30.8 pg 25.7-32.2 scjj=457) MEAN CORPUSCULAR HEMOGLOBIN CONC (BEAKER) (test 35.1 GM/DL 32.3-36.5 xqnh=263) RED CELL DISTRIBUTION WIDTH (BEAKER) (test 13.3 % 11.6-14.4 ufcj=119) PLATELET COUNT (BEAKER) (test jvus=881) 238 K/CU MM 150-450 MEAN PLATELET VOLUME (BEAKER) (test qupw=417) 10.1 fL 9.4-12.4 NUCLEATED RED BLOOD CELLS (BEAKER) (test 0 /100 WBC 0-0 jiuo=112) NEUTROPHILS RELATIVE PERCENT (BEAKER) (test 64 % yhpw=564) LYMPHOCYTES RELATIVE PERCENT (BEAKER) (test 26 % zftb=214) MONOCYTES RELATIVE PERCENT (BEAKER) (test 7 % dkiz=234) EOSINOPHILS RELATIVE PERCENT (BEAKER) (test 2 % rkbt=423) BASOPHILS RELATIVE PERCENT (BEAKER) (test 0 % pvnd=507) NEUTROPHILS ABSOLUTE COUNT (BEAKER) (test 6.54 K/ L 1.78-5.38 qksm=199) LYMPHOCYTES ABSOLUTE COUNT (BEAKER) (test 2.64 K/ L 1.32-3.57 mqdo=252) MONOCYTES ABSOLUTE COUNT (BEAKER) (test 0.71 K/ L 0.30-0.82 xwau=944) EOSINOPHILS ABSOLUTE COUNT (BEAKER) (test 0.21 K/ L 0.04-0.54 cexx=946) BASOPHILS ABSOLUTE COUNT (BEAKER) (test 0.04 K/ L 0.01-0.08 xuxe=643) IMMATURE GRANULOCYTES-RELATIVE PERCENT (BEAKER) 0 % 0-1 (test qmpw=4651) TISSUE [id number] 14:18:00Surgical Pathology Report Case: [id number] Authorizing Provider: Greta Urban MD Collected: 09/25/2017 1609 Ordering Location: [facility] Received: 09/26/2017 0819 PERIOPERATIVE SERVICES Pathologist: Dejan Martin MD Specimens: A) - Plaque, LEFT FEMORAL PLAQUE B) -Plaque, RIGHT FEMORAL PLAQUE A. ARTERY, LEFT FEMORAL, ENDARTERECTOMY:CALCIFIC ATHEROSCLEROTIC PLAQUEB. ARTERY, RIGHT FEMORAL, ENDARTERECTOMY:CALCIFIC ATHEROSCLEROTIC PLAQUE WITH ATTACHED FIBRIN THROMBUS Signing Pathologist Direct Phone Line: [phone] signed by Dejan Martin MD on 09/30/2017 at 2:18 [id number]; [id number]. Left femoral plaque. B. Right femoral plaque Specimen A: Received in saline labeled "plaque", description "left femoral plaque" is a 2.5 x 2.5 x 0.5 cm aggregate of sinha-white to yellow-ferreira, rubbery fibrous tissue. Sectioning reveals focal calcification. [employer] sections are submitted in cassette A1 for decalcification.Specimen B: Received in saline labeled "plaque", description "right femoral plaque" are three irregular, sinha-white to yellow-ferreira, rubbery portions of fibrous tissue measuring 1.5 x 1.5 x 0.2 cm in aggregate. Sectioning reveals focal calcification. The specimen is entirely submitted in cassette B1 for decalcification. DB/[id number] 00:38:00 Test Item Value Reference Range Comments MAGNESIUM (BEAKER) (test xbmq=952) 2.1 mg/dL 1.6-2.6 BASIC METABOLIC [id number] 00:38:00 Test Item Value Reference Range Comments SODIUM (BEAKER) (test 136 meq/L 136-145 mpuu=572) POTASSIUM (BEAKER) (test 3.8 meq/L 3.5-5.1 loky=325) CHLORIDE (BEAKER) (test 104 meq/L 98-107 uuhv=015) CO2 (BEAKER) (test 26 meq/L 22-29 zbkx=551) BLOOD UREA NITROGEN 11 mg/dL 7-21 (BEAKER) (test qkxo=876) CREATININE (BEAKER) (test 0.92 mg/dL 0.57-1.25 mumz=715) GLUCOSE RANDOM (BEAKER) 99 mg/dL 70-105 (test cwmz=557) CALCIUM (BEAKER) (test 8.5 mg/dL 8.4-10.2 ktaa=927) EGFR (BEAKER) (test 103 mL/min/1.73 sq m ESTIMATED GFR IS NOT dgio=0362) ACCURATE CREATININE CLEARANCE IN PREDICTING GLOMERULAR FILTRATION RATE. ESTIMATED GFR IS NOT APPLICABLE FOR DIALYSIS PATIENTS. CBC W/PLT COUNT & AUTO [id number] 13:39:00 Test Item Value Reference Range Comments WHITE BLOOD CELL COUNT 14.6 K/ L 3.5-10.5 (BEAKER) (test dpmh=255) RED BLOOD CELL COUNT (BEAKER) 3.59 M/ L 4.63-6.08 (test qysv=040) HEMOGLOBIN (BEAKER) (test 11.0 GM/DL 13.7-17.5 utag=293) HEMATOCRIT (BEAKER) (test 32.8 % 40.1-51.0 uqha=371) MEAN CORPUSCULAR VOLUME 91.4 fL 79.0-92.2 (BEAKER) (test kgop=931) MEAN CORPUSCULAR HEMOGLOBIN 30.6 pg 25.7-32.2 (BEAKER) (test inih=510) MEAN CORPUSCULAR HEMOGLOBIN 33.5 GM/DL 32.3-36.5 CONC (BEAKER) (test msyu=351) RED CELL DISTRIBUTION WIDTH 12.9 % 11.6-14.4 (BEAKER) (test eraj=423) PLATELET COUNT (BEAKER) (test 143 K/CU MM 150-450 zagw=272) MEAN PLATELET VOLUME (BEAKER) 10.8 fL 9.4-12.4 (test prix=175) NUCLEATED RED BLOOD CELLS 0 /100 WBC 0-0 (BEAKER) (test yfsd=151) NEUTROPHILS RELATIVE PERCENT 66 % This is an appended report. (BEAKER) (test ogkb=934) These results have been appended to a previously final verified report. LYMPHOCYTES RELATIVE PERCENT 20 % This is an appended report. (BEAKER) (test diih=197) These results have been appended to a previously final verified report. MONOCYTES RELATIVE PERCENT 11 % This is an appended report. (BEAKER) (test cdpq=981) These results have been appended to a previously final verified report. EOSINOPHILS RELATIVE PERCENT 3 % This is an appended report. (BEAKER) (test eoxs=881) These results have been appended to a previously final verified report. BASOPHILS RELATIVE PERCENT 0 % This is an appended report. (BEAKER) (test skjv=674) These results have been appended to a previously final verified report. NEUTROPHILS ABSOLUTE COUNT 9.59 K/ L 1.78-5.38 This is an appended report. (BEAKER) (test fach=745) These results have been appended to a previously final verified report. LYMPHOCYTES ABSOLUTE COUNT 2.96 K/ L 1.32-3.57 This is an appended report. (BEAKER) (test rfwh=600) These results have been appended to a previously final verified report. MONOCYTES ABSOLUTE COUNT 1.59 K/ L 0.30-0.82 This is an appended report. (BEAKER) (test xtqo=036) These results have been appended to a previously final verified report. EOSINOPHILS ABSOLUTE COUNT 0.37 K/ L 0.04-0.54 This is an appended report. (BEAKER) (test byqa=155) These results have been appended to a previously final verified report. BASOPHILS ABSOLUTE COUNT 0.04 K/ L 0.01-0.08 This is an appended report. (BEAKER) (test wdtu=720) These results have been appended to a previously final verified report. IMMATURE GRANULOCYTES-RELATIVE 1 % 0-1 This is an appended report. PERCENT (BEAKER) (test These results have been stkh=7117) appended to a previously final verified report. POCT-GLUCOSE [id number] 09:12:00 Test Item Value Reference Range Comments POC-GLUCOSE METER (BEAKER) 81 mg/dL 70-[address] [facility] [address] [facility] (test sgbh=7090) [facility] [address] BASIC METABOLIC [id number] 05:02:00 Test Item Value Reference Range Comments SODIUM (BEAKER) (test 136 meq/L 136-145 pwnx=580) POTASSIUM (BEAKER) (test 3.8 meq/L 3.5-5.1 emxa=548) CHLORIDE (BEAKER) (test 105 meq/L 98-107 nfoj=651) CO2 (BEAKER) (test 25 meq/L 22-29 ogfj=293) BLOOD UREA NITROGEN 9 mg/dL 7-21 (BEAKER) (test lrcp=614) CREATININE (BEAKER) (test 0.82 mg/dL 0.57-1.25 bpas=816) GLUCOSE RANDOM (BEAKER) 89 mg/dL 70-105 (test sjxb=328) CALCIUM (BEAKER) (test 8.3 mg/dL 8.4-10.2 qgce=951) EGFR (BEAKER) (test 117 mL/min/1.73 sq m ESTIMATED GFR IS NOT ewyb=8585) ACCURATE CREATININE CLEARANCE IN PREDICTING GLOMERULAR FILTRATION RATE. ESTIMATED GFR IS NOT APPLICABLE FOR DIALYSIS PATIENTS. POCT-GLUCOSE [id number] 21:22:00 Test Item Value Reference Range Comments POC-GLUCOSE METER (BEAKER) 121 mg/dL 70-[address] [facility] [address] [place] [address] (test yxag=2313) [facility] [address] [id number] 04:30:00 Test Item Value Reference Range Comments PHOSPHORUS (BEAKER) (test knnj=692) 2.7 mg/dL 2.3-4.7 [id number] 04:30:00 Test Item Value Reference Range Comments MAGNESIUM (BEAKER) (test ltaq=728) 2.5 mg/dL 1.6-2.6 BASIC METABOLIC [id number] 04:30:00 Test Item Value Reference Range Comments SODIUM (BEAKER) (test 134 meq/L 136-145 hnok=751) POTASSIUM (BEAKER) (test 3.8 meq/L 3.5-5.1 ydtq=660) CHLORIDE (BEAKER) (test 104 meq/L 98-107 ybqs=858) CO2 (BEAKER) (test 22 meq/L 22-29 hllv=592) BLOOD UREA NITROGEN 13 mg/dL 7-21 (BEAKER) (test chqh=069) CREATININE (BEAKER) (test 0.96 mg/dL 0.57-1.25 hyms=711) GLUCOSE RANDOM (BEAKER) 115 mg/dL 70-105 (test rcxh=122) CALCIUM (BEAKER) (test 8.2 mg/dL 8.4-10.2 fogh=839) EGFR (BEAKER) (test 98 mL/min/1.73 sq m ESTIMATED GFR IS NOT qtrc=5894) ACCURATE CREATININE CLEARANCE IN PREDICTING GLOMERULAR FILTRATION RATE. ESTIMATED GFR IS NOT APPLICABLE FOR DIALYSIS PATIENTS. LACTIC ACID, ARTERIAL, WHOLE [id number] 04:15:00 Test Item Value Reference Range Comments LACTATE BLOOD ARTERIAL (2) (BEAKER) (test 1.0 mmol/L 0.5-2.2 gfij=3649) Effective 09/27/2015: Units/Reference Range ChangeNew: 0.5-2.2 mmol/L Previous: 5 -20 mg/dLCBC W/PLT COUNT & AUTO [id number] 04:12:00 Test Item Value Reference Range Comments WHITE BLOOD CELL COUNT (BEAKER) (test bzso=653) 16.5 K/ L 3.5-10.5 RED BLOOD CELL COUNT (BEAKER) (test vzni=919) 4.08 M/ L 4.63-6.08 HEMOGLOBIN (BEAKER) (test iypk=391) 12.5 GM/DL 13.7-17.5 HEMATOCRIT (BEAKER) (test gkuf=386) 36.9 % 40.1-51.0 MEAN CORPUSCULAR VOLUME (BEAKER) (test sgrk=284) 90.4 fL 79.0-92.2 MEAN CORPUSCULAR HEMOGLOBIN (BEAKER) (test 30.6 pg 25.7-32.2 vnmg=645) MEAN CORPUSCULAR HEMOGLOBIN CONC (BEAKER) (test 33.9 GM/DL 32.3-36.5 figc=441) RED CELL DISTRIBUTION WIDTH (BEAKER) (test 12.8 % 11.6-14.4 okcx=473) PLATELET COUNT (BEAKER) (test auhv=699) 183 K/CU MM 150-450 MEAN PLATELET VOLUME (BEAKER) (test ahun=255) 10.2 fL 9.4-12.4 NUCLEATED RED BLOOD CELLS (BEAKER) (test 0 /100 WBC 0-0 jtbl=395) NEUTROPHILS RELATIVE PERCENT (BEAKER) (test 80 % soru=169) LYMPHOCYTES RELATIVE PERCENT (BEAKER) (test 11 % ndnr=472) MONOCYTES RELATIVE PERCENT (BEAKER) (test 8 % mtus=621) EOSINOPHILS RELATIVE PERCENT (BEAKER) (test 1 % oygl=552) BASOPHILS RELATIVE PERCENT (BEAKER) (test 0 % cplr=662) NEUTROPHILS ABSOLUTE COUNT (BEAKER) (test 13.15 K/ L 1.78-5.38 nigk=878) LYMPHOCYTES ABSOLUTE COUNT (BEAKER) (test 1.85 K/ L 1.32-3.57 egjj=971) MONOCYTES ABSOLUTE COUNT (BEAKER) (test 1.36 K/ L 0.30-0.82 gwmm=254) EOSINOPHILS ABSOLUTE COUNT (BEAKER) (test 0.10 K/ L 0.04-0.54 cdcn=912) BASOPHILS ABSOLUTE COUNT (BEAKER) (test 0.03 K/ L 0.01-0.08 duqe=952) IMMATURE GRANULOCYTES-RELATIVE PERCENT (BEAKER) 0 % 0-1 (test jbhz=5095) CALCIUM, [id number] 03:51:00 Test Item Value Reference Range Comments CALCIUM IONIZED (BEAKER) (test lhgc=023) 1.08 mmol/L 1.12-1.27 PH, BLOOD (BEAKER) (test vdex=8096) 7.41 POCT-GLUCOSE [id number] 22:24:00 Test Item Value Reference Range Comments POC-GLUCOSE METER (BEAKER) 159 mg/dL 70-110 TESTED AT [address] (test eppy=0025) [facility] [address] RAD, CHEST, 1 VIEW, NON [id number] 19:01:00Reason for exam:->central line placement Should this [...] MDReport Verified Date/Time: 2017 19:01:26 Reading Location: [facility] C013W Consult Reading Room [id number] 18:09:00 Test Item Value Reference Range Comments PHOSPHORUS (BEAKER) (test herf=670) 3.1 mg/dL 2.3-4.7 [id number] 18:09:00 Test Item Value Reference Range Comments MAGNESIUM (BEAKER) (test pmdn=761) 1.7 mg/dL 1.6-2.6 BASIC METABOLIC [id number] 18:09:00 Test Item Value Reference Range Comments SODIUM (BEAKER) (test 137 meq/L 136-145 jedl=345) POTASSIUM (BEAKER) (test 3.9 meq/L 3.5-5.1 liny=442) CHLORIDE (BEAKER) (test 108 meq/L 98-107 egmg=581) CO2 (BEAKER) (test 23 meq/L 22-29 ccja=219) BLOOD UREA NITROGEN 14 mg/dL 7-21 (BEAKER) (test shef=699) CREATININE (BEAKER) (test 0.95 mg/dL 0.57-1.25 rxfr=315) GLUCOSE RANDOM (BEAKER) 231 mg/dL 70-105 (test yful=268) CALCIUM (BEAKER) (test 8.1 mg/dL 8.4-10.2 obzz=171) EGFR (BEAKER) (test 99 mL/min/1.73 sq m ESTIMATED GFR IS NOT iety=1329) ACCURATE CREATININE CLEARANCE IN PREDICTING GLOMERULAR FILTRATION RATE. ESTIMATED GFR IS NOT APPLICABLE FOR DIALYSIS PATIENTS. PROTHROMBIN [id number] 18:01:00 Test Item Value Reference Range Comments PROTIME (BEAKER) (test kleq=477) 15.8 seconds 11.7-14.7 INR (BEAKER) (test vica=063) 1.3 <=5.9 RECOMMENDED COUMADIN/WARFARIN INR THERAPY RANGESSTANDARD DOSE: 2.0 - 3.0 Includes: PROPHYLAXIS forvenous thrombosis, systemic embolization; TREATMENT for venous thrombosis and/or pulmonary embolus.HIGH RISK: Target INR is 2.5-3.5 for patients with mechanical heart valves.[id number] 18:01:00 Test Item Value Reference Range Comments FIBRINOGEN LEVEL (BEAKER) (test ujbw=409) 354 mg/dl 225-434 [id number] 18:01:00 Test Item Value Reference Range Comments PARTIAL THROMBOPLASTIN TIME (BEAKER) (test 34.5 seconds 22.5-36.0 ncis=736) CBC W/PLT COUNT & AUTO [id number] 17:52:00 Test Item Value Reference Range Comments WHITE BLOOD CELL COUNT (BEAKER) (test uimq=972) 21.1 K/ L 3.5-10.5 RED BLOOD CELL COUNT (BEAKER) (test lrjz=434) 4.68 M/ L 4.63-6.08 HEMOGLOBIN (BEAKER) (test sgcf=325) 14.3 GM/DL 13.7-17.5 HEMATOCRIT (BEAKER) (test rfvo=031) 42.8 % 40.1-51.0 MEAN CORPUSCULAR VOLUME (BEAKER) (test xwwr=623) 91.5 fL 79.0-92.2 MEAN CORPUSCULAR HEMOGLOBIN (BEAKER) (test 30.6 pg 25.7-32.2 hxoj=690) MEAN CORPUSCULAR HEMOGLOBIN CONC (BEAKER) (test 33.4 GM/DL 32.3-36.5 sosa=374) RED CELL DISTRIBUTION WIDTH (BEAKER) (test 13.0 % 11.6-14.4 qxor=622) PLATELET COUNT (BEAKER) (test kymn=842) 216 K/CU MM 150-450 MEAN PLATELET VOLUME (BEAKER) (test zfpy=563) 10.3 fL 9.4-12.4 NUCLEATED RED BLOOD CELLS (BEAKER) (test 0 /100 WBC 0-0 wvmw=150) NEUTROPHILS RELATIVE PERCENT (BEAKER) (test 65 % kewy=396) LYMPHOCYTES RELATIVE PERCENT (BEAKER) (test 24 % uvwp=119) MONOCYTES RELATIVE PERCENT (BEAKER) (test 7 % evnd=143) EOSINOPHILS RELATIVE PERCENT (BEAKER) (test 3 % dqeo=843) BASOPHILS RELATIVE PERCENT (BEAKER) (test 0 % rxqo=902) NEUTROPHILS ABSOLUTE COUNT (BEAKER) (test 13.75 K/ L 1.78-5.38 svmu=796) LYMPHOCYTES ABSOLUTE COUNT (BEAKER) (test 4.96 K/ L 1.32-3.57 hjio=600) MONOCYTES ABSOLUTE COUNT (BEAKER) (test 1.37 K/ L 0.30-0.82 zjlk=489) EOSINOPHILS ABSOLUTE COUNT (BEAKER) (test 0.69 K/ L 0.04-0.54 fqta=797) BASOPHILS ABSOLUTE COUNT (BEAKER) (test 0.05 K/ L 0.01-0.08 pbld=294) IMMATURE GRANULOCYTES-RELATIVE PERCENT (BEAKER) 1 % 0-1 (test okuv=8476) HEMOGLOBIN [id number] 14:43:00 Test Item Value Reference Range Comments HEMOGLOBIN A1C (BEAKER) (test pioa=299) 5.6 % 4.3-6.1 BASIC METABOLIC [id number] 12:35:00 Test Item Value Reference Range Comments SODIUM (BEAKER) (test 141 meq/L 136-145 utzo=739) POTASSIUM (BEAKER) (test 4.1 meq/L 3.5-5.1 fkqn=690) CHLORIDE (BEAKER) (test 105 meq/L 98-107 mnhx=770) CO2 (BEAKER) (test 28 meq/L 22-29 uoij=663) BLOOD UREA NITROGEN 9 mg/dL 7-21 (BEAKER) (test lcjf=521) CREATININE (BEAKER) (test 0.82 mg/dL 0.57-1.25 cjpc=469) GLUCOSE RANDOM (BEAKER) 89 mg/dL 70-105 (test jxna=918) CALCIUM (BEAKER) (test 9.5 mg/dL 8.4-10.2 vrmx=754) EGFR (BEAKER) (test 117 mL/min/1.73 sq m ESTIMATED GFR IS NOT gaxm=2910) ACCURATE CREATININE CLEARANCE IN PREDICTING GLOMERULAR FILTRATION RATE. ESTIMATED GFR IS NOT APPLICABLE FOR DIALYSIS PATIENTS. PROTHROMBIN [id number] 12:32:00 Test Item Value Reference Range Comments PROTIME (BEAKER) (test wgtj=925) 13.7 seconds 11.7-14.7 INR (BEAKER) (test lbau=406) 1.1 <=5.9 RECOMMENDED COUMADIN/WARFARIN INR THERAPY RANGESSTANDARD DOSE: 2.0 - 3.0 Includes: PROPHYLAXIS forvenous thrombosis, systemic embolization; TREATMENT for venous thrombosis and/or pulmonary embolus.HIGH RISK: Target INR is 2.5-3.5 for patients with mechanical heart valves.RAD, CHEST, 2 [id number] 12:21: 00Reason for Exam:->Pre-OpFINAL REPORT Chest two views INDICATION: Preoperative exam. Aortic iliac disease, femoral popliteal artery atherosclerosis COMPARISON: None available IMPRESSION: There is no focal consolidation, vascular congestion, pleural effusion, or pneumothorax. The cardiomediastinal silhouette is unremarkable. There are mild degenerative spine and shoulder changes. Signed: Yaw Lay MDReport Verified Date/Time: 09/16/2017 12:21:59 Reading Location: [facility] Radiology Reading Room CBC W/ PLT COUNT & AUTO [id number] 12:19:00 Test Item Value Reference Range Comments WHITE BLOOD CELL COUNT (BEAKER) (test xpzj=262) 8.6 K/ L 3.5-10.5 RED BLOOD CELL COUNT (BEAKER) (test uivb=561) 5.05 M/ L 4.63-6.08 HEMOGLOBIN (BEAKER) (test ogxv=961) 15.4 GM/DL 13.7-17.5 HEMATOCRIT (BEAKER) (test krwa=688) 47.1 % 40.1-51.0 MEAN CORPUSCULAR VOLUME (BEAKER) (test rtcq=587) 93.3 fL 79.0-92.2 MEAN CORPUSCULAR HEMOGLOBIN (BEAKER) (test 30.5 pg 25.7-32.2 ogaa=261) MEAN CORPUSCULAR HEMOGLOBIN CONC (BEAKER) (test 32.7 GM/DL 32.3-36.5 pdhb=226) RED CELL DISTRIBUTION WIDTH (BEAKER) (test 13.0 % 11.6-14.4 xygg=908) PLATELET COUNT (BEAKER) (test uowd=700) 272 K/CU MM 150-450 MEAN PLATELET VOLUME (BEAKER) (test ezhy=341) 10.6 fL 9.4-12.4 NUCLEATED RED BLOOD CELLS (BEAKER) (test 0 /100 WBC 0-0 pvwz=939) NEUTROPHILS RELATIVE PERCENT (BEAKER) (test 55 % hjox=012) LYMPHOCYTES RELATIVE PERCENT (BEAKER) (test 33 % gbtp=954) MONOCYTES RELATIVE PERCENT (BEAKER) (test 6 % ycgc=828) EOSINOPHILS RELATIVE PERCENT (BEAKER) (test 5 % zjhi=776) BASOPHILS RELATIVE PERCENT (BEAKER) (test 0 % fbop=291) NEUTROPHILS ABSOLUTE COUNT (BEAKER) (test 4.70 K/ L 1.78-5.38 hyhm=201) LYMPHOCYTES ABSOLUTE COUNT (BEAKER) (test 2.83 K/ L 1.32-3.57 nstk=248) MONOCYTES ABSOLUTE COUNT (BEAKER) (test 0.51 K/ L 0.30-0.82 vcru=431) EOSINOPHILS ABSOLUTE COUNT (BEAKER) (test 0.46 K/ L 0.04-0.54 xaik=429) BASOPHILS ABSOLUTE COUNT (BEAKER) (test 0.03 K/ L 0.01-0.08 jdxh=933) IMMATURE GRANULOCYTES-RELATIVE PERCENT (BEAKER) 0 % 0-1 (test faio=8536)
--- NOTE | 2018-12-17 22:38 | ER ---
Nurse's Notes [facility] Name: Noé Garcia Age: 58 yrs Sex: Male : 1960 Arrival Date: 12/17/2018 Time: 22:08 Bed 13 Private MD: Diagnosis: Unspecified abdominal pain Presentation: 12/17 22:15 Presenting complaint: Patient states: "liver pain" pt stated Lilia BEAD PICKER told the ak1 family on the that if the pt came back to the ER he would not need blood work just ask for pain medication. pt was sent home on a fentanyl patch that was removed this morning by the and pt now has increased pain. pt was seen this afternoon by Dr. Jeff for cardiology. Transition of care: patient was not received from another setting of care. Onset of symptoms was December 17, 2018. Risk Assessment: Do you want to hurt yourself or someone else? Patient reports no desire to harm self or others. Initial Sepsis Screen: Does the patient meet any 2 criteria? No. Patient's initial sepsis screen is negative. Does the patient have a suspected source of infection? No. Patient's initial sepsis screen is negative. Care prior to arrival: None. 22:15 Method Of Arrival: Wheelchair ak1 22:15 Acuity: BINH 3 ak1 22:18 Note pt told registration he was having chest pain. ak1 Triage Assessment: 22:18 General: Appears uncomfortable, Behavior is calm, cooperative. ak1 Historical: - Allergies: 22:18 No Known Allergies; ak1 - Home Meds: 22:18 amlodipine 5 mg tab 1 tab once daily [Active]; cilostazol 100 mg Oral tab 1 tab 2 times ak1 per day [Active]; clopidogrel 75 mg Oral tab 1 tab once daily [Active]; lisinopril-hydrochlorothiazide 20-25 mg Oral tab 1 tab once daily [Active]; simvastatin 40 mg Oral tab 1 tab once daily [Active]; tramadol 50 mg Oral tab 1 tab every 4 hours [Active]; - PMHx: 22:18 Cirrhosis; Hypertension; liver cancer; ak1 - PSHx: 22:18 bypass stent in his left leg; ak1 - Immunization history:: Adult Immunizations unknown. - Social history:: Smoking status: Patient/guardian denies using tobacco. - Ebola Screening: : No symptoms or risks identified at this time. Screenin:23 Abuse screen: Denies threats or abuse. Denies injuries from another. Nutritional rr5 screening: No deficits noted. Tuberculosis screening: No symptoms or risk factors identified. Fall Risk Ambulatory Aid- Gait- Impaired (20 pts.). Total Ureña Fall Scale indicates Low Risk Score (25-44 pts). Fall prevention measures have been instituted. Side Rails Up X 2 Placed close to Nursing Station Frequent Obs/Assesments occuring Family Present and informed to notify staff if they need to leave bedside As available Patient and Family Educated on Fall Prevention Program and strategies. Assessment: 22:19 Pain: Pain began. ak1 22:19 General: Appears in no apparent distress. uncomfortable, Behavior is calm, cooperative, rr5 appropriate for age. 22:19 Pain: Complains of pain in abdomen Pain does not radiate. Pain currently is 10 out of rr5 10 on a pain scale. Quality of pain is described as aching, Pain began gradually, Is intermittent. Neuro: Level of Consciousness is awake, alert, obeys commands, Oriented to person, place, time, situation, Appropriate for age. Cardiovascular: Denies chest pain, Capillary refill < 3 seconds Patient's skin is warm and dry. Respiratory: Airway is patent Respiratory effort is even, unlabored, Respiratory pattern is regular, symmetrical. GI: Abdomen is flat, Reports upper abdominal pain. : No signs and/or symptoms were reported regarding the genitourinary system. EENT: No signs and/or symptoms were reported regarding the EENT system. Derm: Skin is intact, Skin temperature is warm. 23:10 Reassessment: Patient appears in no apparent distress at this time. Patient is alert, rr5 oriented x 3, equal unlabored respirations, skin warm/dry/pink. discharge instruction given and explained without complaints made. 23:10 Pain: Pain currently is 0 out of 10 on a pain scale. rr5 Vital Signs: 22:18 Resp 18; Temp 99.9; Weight 53.07 kg (R); Height 5 ft. 7 in. (170.18 cm); Pain 10/10; ak1 22:18 BP 103 / 65; Pulse 113; rr5 22:18 Pulse Ox 99% on R/A; rr5 23:10 BP 110 / 60; Pulse 98; Resp 16; Pulse Ox 99% ; Pain 0/10; rr5 22:18 Body Mass Index 18.32 (53.07 kg, 170.18 cm) ak1 ED Course: 22:00 No provider procedures requiring assistance completed. Patient did not have IV access rr5 during this emergency room visit. Patient maintains SpO2 saturation greater than 95% on room air. 22:08 Patient arrived in ED. mr 22:17 Triage completed. ak1 22:17 Man Moss NP is PHCP. pm1 22:17 Jordi Sepulveda MD is Attending Physician. pm1 22:18 Arm band placed on Patient placed in an exam room, on a stretcher, on pulse oximetry, ak1 Patient notified of wait time. EKG completed in triage. Results shown to MD. 22:22 Alonzo Caballero RN is Primary Nurse. rr5 22:24 Patient has correct armband on for positive identification. Placed in gown. Bed in low rr5 position. Call light in reach. Side rails up X2. school lunch monitor on. Pulse ox on. NIBP on. 22:37 Patrick Garibay DO is Referral Physician. pm1 Administered Medications: 22:45 Drug: fentaNYL (PF) 25 mcg Route: IM; Site: left deltoid; rr5 23:10 Follow up: Response: No adverse reaction rr5 22:47 Drug: fentaNYL Patch (25 mcg/hr) 1 patches {Note: left scapula.} Route: Transdermal; rr5 Site: affected area; 23:10 Follow up: Response: No adverse reaction rr5 Outcome: 22:37 Discharge ordered by MD. pm1 23:10 Discharged to home ambulatory, with family. rr5 23:10 Condition: stable 23:10 Discharge instructions given to patient, family, Instructed on discharge instructions, follow up and referral plans. Demonstrated understanding of instructions, follow-up care. 23:11 Patient left the ED. rr5 Signatures: Susanna Rajput mr WoodardTeresa RN RN ak1 Man Moss, CM INCOME TAX EXPERT pm1 Alonzo Caballero, CRISTINA RN rr5
--- NOTE | 2018-12-17 22:38 | EDPHYS ---
Physician Documentation [facility] Name: Noé Garcia Age: 58 yrs Sex: Male : 1960 Arrival Date: 12/17/2018 Time: 22:08 Bed 13 Private MD: ED Physician Jordi Sepulveda HPI: 12/17 22:36 This 58 yrs old Black Male presents to ER via Wheelchair with complaints of Abdominal pm1 Pain. 22:36 The patient presents with abdominal pain in the upper abdomen. Onset: The pm1 symptoms/episode began/occurred this morning. The symptoms do not radiate. Associated signs and symptoms: none. Pertinent negatives: nausea, vomiting, and diarrhea, chest pain, shortness of breath. The symptoms are described as achy, constant. Modifying factors: The symptoms are alleviated by Fentanyl patch. the symptoms are aggravated by Removed fentanyl patch this AM. Does not have any medications for pain. Severity of pain: in the emergency department the pain is actually worse. The patient has been recently seen at the [facility] Emergency Department, Patient seen three days ago for pain management in the ER. Was treated with fentanyl IM and patch. Patient is requesting same treatment. He does not want any labs or imaging because he "already knows the cause of his abdominal pain." Patient was diagnosed with HCC on 12/04/2018. Historical: - Allergies: 22:18 No Known Allergies; ak1 - Home Meds: 22:18 amlodipine 5 mg tab 1 tab once daily [Active]; cilostazol 100 mg Oral tab 1 tab 2 times ak1 per day [Active]; clopidogrel 75 mg Oral tab 1 tab once daily [Active]; lisinopril-hydrochlorothiazide 20-25 mg Oral tab 1 tab once daily [Active]; simvastatin 40 mg Oral tab 1 tab once daily [Active]; tramadol 50 mg Oral tab 1 tab every 4 hours [Active]; - PMHx: 22:18 Cirrhosis; Hypertension; liver cancer; ak1 - PSHx: 22:18 bypass stent in his left leg; ak1 - Immunization history:: Adult Immunizations unknown. - Social history:: Smoking status: Patient/guardian denies using tobacco. - Ebola Screening: : No symptoms or risks identified at this time. ROS: 22:36 Constitutional: Negative for fever, chills, and weight loss, Eyes: Negative for injury, pm1 pain, redness, and discharge, ENT: Negative for injury, pain, and discharge, Neck: Negative for injury, pain, and swelling, Cardiovascular: Negative for chest pain, palpitations, and edema, Respiratory: Negative for shortness of breath, cough, wheezing, and pleuritic chest pain. 22:36 Abdomen/GI: Positive for abdominal pain, Negative for nausea, vomiting, and diarrhea. 22:36 Back: Negative for injury and pain, MS/Extremity: Negative for injury and deformity, pm1 Skin: Negative for injury, rash, and discoloration, Neuro: Negative for headache, weakness, numbness, tingling, and seizure. Exam: 22:36 Constitutional: This is a well developed, well nourished patient who is awake, alert, pm1 and in no acute distress. Head/Face: Normocephalic, atraumatic. Chest/axilla: Normal chest wall appearance and motion. Nontender with no deformity. No lesions are appreciated. Cardiovascular: Regular rate and rhythm with a normal S1 and S2. No gallops, murmurs, or rubs. Normal PMI, no JVD. No pulse deficits. Respiratory: Lungs have equal breath sounds bilaterally, clear to auscultation and percussion. No rales, rhonchi or wheezes noted. No increased work of breathing, no retractions or nasal flaring. 22:36 Back: No spinal tenderness. No costovertebral tenderness. Full range of motion. Skin: Warm, dry with normal turgor. Normal color with no rashes, no lesions, and no evidence of cellulitis. MS/ Extremity: Pulses equal, no cyanosis. Neurovascular intact. Full, normal range of motion. 22:36 Abdomen/GI: Inspection: abdomen appears normal, Bowel sounds: normal, Palpation: abdomen is soft and non-tender, mass, is not appreciated, rebound tenderness, is not appreciated. 22:36 Neuro: Orientation: is normal, Motor: is normal, moves all fours. Vital Signs: 22:18 Resp 18; Temp 99.9; Weight 53.07 kg (R); Height 5 ft. 7 in. (170.18 cm); Pain 10/10; ak1 22:18 BP 103 / 65; Pulse 113; rr5 22:18 Pulse Ox 99% on R/A; rr5 23:10 BP 110 / 60; Pulse 98; Resp 16; Pulse Ox 99% ; Pain 0/10; rr5 22:18 Body Mass Index 18.32 (53.07 kg, 170.18 cm) ak1 MDM: 22:17 Patient medically screened. [facility] 22:36 Data reviewed: vital signs. Counseling: I had a detailed discussion with the patient pm1 and/or guardian regarding: the historical points, exam findings, and any diagnostic results supporting the discharge/admit diagnosis, the need for outpatient follow up, for definitive care, a paintings conservator, to return to the emergency department if symptoms worsen or persist or if there are any questions or concerns that arise at home. Administered Medications: 22:45 Drug: fentaNYL (PF) 25 mcg Route: IM; Site: left deltoid; rr5 23:10 Follow up: Response: No adverse reaction rr5 22:47 Drug: fentaNYL Patch (25 mcg/hr) 1 patches {Note: left scapula.} Route: Transdermal; rr5 Site: affected area; 23:10 Follow up: Response: No adverse reaction rr5 Disposition: 12/18 07:07 Co-signature as Attending Physician, Jordi Sepulveda MD I agree with the assessment and [facility] plan of care. Disposition: 12/17/18 22:37 Discharged to Home. Impression: Unspecified abdominal pain. - Condition is Stable. - Discharge Instructions: Abdominal Pain, Adult. - Medication Reconciliation Form, Thank You Letter, Antibiotic Education, Prescription Opioid Use form. - Follow up: Emergency Department; When: As needed; Reason: Worsening of condition. Follow up: Private Physician; When: 2 - 3 days; Reason: Recheck today's complaints, Continuance of care, Re-evaluation by your physician. Follow up: Patrick Garibay DO; When: 2 - 3 days; Reason: Recheck today's complaints, Continuance of care, Re-evaluation by your physician. - Problem is new. - Symptoms have improved. Signatures: Jordi Sepulveda MD MD cha Krenek, Amber, RN RN ak1 Man Moss, CM [employer] pm1 Alonzo Caballero RN RN rr5 Corrections: (The following items were deleted from the chart) 12/17 23:11 22:37 12/17/2018 22:37 Discharged to Home. Impression: Unspecified abdominal pain. rr5 Condition is Stable. Forms are Medication Reconciliation Form, Thank You Letter, Antibiotic Education, Prescription Opioid Use. Follow up: Emergency Department; When: As needed; Reason: Worsening of condition. Follow up: Private Physician; When: 2 - 3 days; Reason: Recheck today's complaints, Continuance of care, Re-evaluation by your physician. Follow up: Patrick Garibay; When: 2 - 3 days; Reason: Recheck today's complaints, Continuance of care, Re-evaluation by your physician. Problem is new. Symptoms have improved. pm1
[2018-12-17] MEDS ORDERED: FENTANYL 25 MCG/PATCH TD ONE (22:54)
[2018-12-17] MEDS ORDERED: FENTANYL CITR 100 MCG/2 ML ONE (22:55)
[2018-12-17 23:22] VITALS: BP 103/65; TEMP 99.9; O2SAT 99
--- NOTE | 2018-12-18 13:34 | EKG ---
Test Date: 2018-12-17 Test Time: 22:12:35 [employer]: RR MEASUREMENT RESULTS: Intervals: Rate: 105 WA: 138 QRSD: 60 QT: 344 QTc: 454 [place]: P: 78 WA: 138 QRS: 104 T: 69 INTERPRETIVE STATEMENTS: Sinus tachycardia Right atrial enlargement Rightward axis Borderline ECG Compared to ECG 12/04/2018 13:50:19 Right-axis deviation now present Indeterminate axis no longer present Electronically Signed On 12-18-18 13:33:31 CDT by Hiren Jeff
== END 2018-12-17 23:11 | disposition home or self-care (01) ==
LOC: ER 22:03
DX: R10.9 Unspecified abdominal pain (principal); I10 Essential (primary) hypertension; Z85.05 Personal history of malignant neoplasm of liver
CPT/HCPCS: 93005; 96372; 99284; J3010

== ENCOUNTER 2018-12-19 14:13 | Emergency (ER) | payer SELFPAY ==
--- OUTSIDE RECORDS SUMMARY | 2018-12-19 14:16 | XMS REPORT | Clinical Summary ---
:1960 Author Organization [facility] Address [address] [place] [address] Care Team Providers Name Role Phone Garett [...] for Nausea for up to 10 days. atorvastatin (LIPITOR) Take 1 tablet (40 [...] every 12 (twelve) hours for 7 days. cefdinir (OMNICEF) 300 Take 1 capsule 14 capsule 0 12/19/19 MG capsule (300 mg total) by 9 mouth 2 (two) times daily for 7 days. Active Problems Problem Noted [...] of skin (HCC) Tony Valdes MD after 12/18/2017 Family History Medical History Relation Name Comments [...] Not on file Implants Implanted Type Area Ward Attendant Device Identifier Shelf Model / Expiration Serial / Lot Date Grft Eptfe-Heparin Rng [id number] - [id number] Graft/P Right: WL GORE & 05/12/2021 [id number] / Implanted: Qty: 1 on 09/25/2017 by Javi Urban MD [facility] Leg ASSC:MED PRDT [id number] / Synergy Stents- Left: [place] [id number] 12/24/2019 [id number] / Implanted: Qty: 1 on 03/04/2018 by Isael Rocha MD [employer] / y [id number] Stents- COOK VASCULAR [id number] 09/19/2019 [id number] / Implanted: Qty: 1 on 03/04/2018 by Isael Rocha MD Per[employer] / ral [id number] Maquet Hemashield Gold Knitted Microvel Double Velour Vascular Graft 7mm X 30cm Right: [employer] 02/22/2022 [id number] / Implanted: Qty: 1 on 09/25/2017 by Javi Urban MD Leg [id number] / Procedures Procedure Name Priority Date/Time Associated [...] unspecified vessel or lesion type, unspecified whether [place] or transplanted heart (HCC) Case Notes (3) [...] (7) STAT 03/02/2018 6:07 PM CDT after 12/18/2017 Results EKG-SCANNED (12/14/2018 3:05 PM CDT) Narrative Performed At RHYTHM STRIP - SCAN (12/14/2018 3:05 PM CDT)Only the most recent of4 resultswithin the time period is included. Narrative Performed At CBC with platelet count + automated diff (12/11/2018 4:39 AM CDT)Only the most recent of13 resultswithin the time period is included. WBC 11.9 (H) 3.5 - 10.5 K/L [facility] RBC 3.59 (L) 4.63 - 6.08 M/L [facility] Hemoglobin 10.4 (L) 13.7 - 17.5 GM/DL [facility] Hematocrit 31.4 (L) 40.1 - 51.0 % [facility] MCV 87.5 79.0 - 92.2 fL [facility] MCH 29.0 25.7 - 32.2 pg [facility] MCHC 33.1 32.3 - 36.5 GM/DL [facility] RDW 14.7 (H) 11.6 - 14.4 % [facility] Platelets 416 150 - 450 K/CU MM [facility] MPV 10.1 9.4 - 12.4 fL [facility] nRBC 0 0 - 0 /100 WBC [facility] % Neutros 67 % [facility] % Lymphs 20 % [facility] % Monos 11 % [facility] % Eos 2 % [facility] % Baso 0 % [facility] # Neutros 7.97 (H) 1.78 - 5.38 K/L [facility] # Lymphs 2.41 1.32 - 3.57 K/L [facility] # Monos 1.26 (H) 0.30 - 0.82 K/L [facility] # Eos 0.20 0.04 - 0.54 K/L [facility] # Baso 0.02 0.01 - 0.08 K/L [facility] Immature Granulocytes-Relative 1 0 - 1 % [facility] Specimen Blood Performing Organization Address City/State/Zipcode Phone Number [facility] [address] [place] [address] CENTER Basic metabolic panel (12/11/2018 4:39 AM CDT)Only the most recent of12 resultswithin the time period is included. Sodium 138 136 - 145 meq/L [facility] Potassium 3.7 3.5 - 5.1 meq/L [facility] Chloride 106 98 - 107 meq/L [facility] CO2 22 22 - 29 meq/L [facility] BUN 6 (L) 7 - 21 mg/dL [facility] Creatinine 0.71 0.57 - 1.25 mg/dL [facility] Glucose 91 70 - 105 mg/dL [facility] Calcium 9.0 8.4 - 10.2 mg/dL [facility] EGFR 138Comment: ESTIMATED GFR IS mL/min/1.[address] [facility] NOT ACCURATE [facility] CLEARANCE IN PREDICTING GLOMERULAR FILTRATION RATE. ESTIMATED GFR IS NOT APPLICABLE FOR DIALYSIS PATIENTS. Specimen Blood Performing Organization Address City/[facility]/Zipcode Phone Number [address] [address] [phone] [place] Sputum Culture + Gram Stain (12/11/2018 12:30 AM CDT) Result 4+ Normal respiratory yael [facility] Gram Stain Result 2+ White blood cells seen [facility] Gram Stain Result 10-15 epithelial cells [facility] Gram Stain Result 3+ gram positive rods [facility] Gram Stain Result 3+ gram positive cocci in [facility] chains, pairs and clusters MEDICAL [place] Specimen Sputum - Expectorated Performing Organization Address City/[facility]/Zipcode Phone Number [address] [address] [phone] [place] Urinalysis w/Microscopic + Reflex to Culture (12/10/2018 8:27 PM CDT) Color, UA Yellow [facility] Clarity, UA Clear [facility] Specific Lewis, UA 1.009 1.001 - 1.035 [facility] pH, UA 7.0 5.0 - 8.0 [facility] Protein, UA Negative Negative [facility] Glucose, UA Negative Negative [facility] Ketones, UA Negative Negative [facility] Bilirubin, UA Negative Negative [facility] Blood, UA Negative Negative [facility] Nitrite, UA Negative Negative [facility] Leukocytes, UA Large (A) Negative [facility] Urobilinogen, UA 8.0 (H) 0.2 - 1.0 mg/dL [facility] RBC, UA 1 /HPF [facility] WBC, UA 18 /HPF [facility] Squam Epithel, UA <1 /HPF [facility] Specimen Source [facility] Specimen Urine Performing Organization Address City/State/Zipcode Phone Number [address] [address] [place] Urine culture (12/10/2018 8:27 PM CDT) Result No growth [facility] Specimen Urine Performing Organization Address City/[facility] Cent[facility] Phone Number [address] [address] [place] Respiratory Panel [facility] (12/10/2018 3:54 PM CDT) [...] Parainfluenza Virus 2 Not detected Not detected, [facility] Parainfluenza virus 3 Not detected Not [...] Other viruses and bacteria not targeted by [facility] this PCR panel cannot be excluded; therefore clinical correlation and follow up of serology, culture results, and other molecular studies is required. The results are not intended to be used as the sole means for clinical diagnosis or patient management decisions. This sample was tested at the [facility] Molecular Diagnostics Laboratory using the RippleFunction FilmArray Respiratory Panel. It is FDA cleared and has been verified and approved by the [facility] Molecular Diagnostics Laboratory for clinical use on nasopharyngeal swab specimens. The performance of the FilmArray RP has not been established in individuals who received influenza vaccine.Recent administration of a nasal influenza vaccine may cause false positive results for Influenza A and/or Influenza B. Performing Organization Address City/[facility]/Zipcode Phone Number [facility] [address] [place] [address] CENTER Blood Culture - Routine (Left Venipuncture) (12/10/2018 3:54 PM CDT)Only the most recent of5 resultswithin the time period is included. Result No growth in 5 days [facility] Specimen Blood Performing Organization Address City/[facility] Cent[facility]ode Phone Number [facility] [address] [address] CENTER XR chest 1 view portable / bedside (12/10/2018 12:45 PM CDT) Specimen Narrative Performed At FINAL REPORT [facility] TECHNIQUE: Frontal chest radiograph dated 12/10/2018. CLINICAL HISTORY: Fever COMPARISON STUDY: Chest radiograph dated 09/25/2017 IMPRESSION: Lungs are clear. No pleural effusion or pneumothorax. Cardiomediastinal silhouette is normal in size. No pulmonary edema. No fracture. Signed: Shantanu Ryan MD Report Verified Date/Time:12/10/2018 13:42:21 Reading Location: [facility] Reading Room Procedure Note Interface, External Ris In - 12/10/2018 1:44 PM CDT FINAL REPORT TECHNIQUE: Frontal chest radiograph dated 12/10/2018. CLINICAL HISTORY: Fever COMPARISON STUDY: Chest radiograph dated 09/25/2017 IMPRESSION: Lungs are clear. No pleural effusion or pneumothorax. Cardiomediastinal silhouette is normal in size. No pulmonary edema. No fracture. Signed: Shantanu Ryan MD Report Verified Date/Time: 12/10/2018 13:42:21 Reading Location: [facility] Reading Room Performing Organization Address City/State/Zipcode Phone Number [facility] PT/aPTT (12/08/2018 5:23 AM CDT)Only the most recent of4 resultswithin the time period is included. Protime 13.2 11.9 - 14.2 seconds [facility] INR 1.1 <=5.9 [facility] PTT 39.2 (H) 22.5 - 36.0 seconds [facility] Specimen Blood Narrative Performed At Effective 10/21/2018: PT Reference Range [facility] Change New: 11.9-14.2Previous: 11.7-14.7 RECOMMENDED COUMADIN/WARFARIN INR THERAPY RANGES STANDARD DOSE: 2.0-3.0Includes: PROPHYLAXIS for venous thrombosis, systemic embolization; TREATMENT for venous thrombosis and/or pulmonary embolus. HIGH RISK: Target INR is 2.5-3.5 for patients wiht mechanical heart valves. Performing Organization Address City/[facility] Centercopr Phone Number [facility] [address] [place] [phone] [place] Hepatic function panel (12/08/2018 5:23 AM CDT)Only the most recent of3 resultswithin the time period is included. Protein, Total 6.7 6.0 - 8.3 gm/dL [facility] Albumin 3.6 3.5 - 5.0 g/dL [facility] Total Bilirubin 0.7 0.2 - 1.2 mg/dL [facility] Bilirubin, Direct 0.6 (H) 0.1 - 0.5 mg/dL [facility] Alkaline Phosphatase 267 (H) 40 - 150 U/L [facility] AST 595 (H) 5 - 34 U/L [facility] ALT 658 (H) 6 - 55 U/L [facility] Specimen Blood Performing Organization Address City/[facility] Centercode Phone Number [place] [id number] [place] [address] [phone] [place] [address] chest with IV contrast (12/07/2018 9:47 PM CDT) Specimen Narrative Performed At FINAL REPORT [facility] EXAMINATION: Chest CT with IV contrast. CLINICAL [...] MD Report Verified Date/Time:12/08/2018 04:21:30 Reading Location: [address] Reading Room Procedure Note Interface, External [...] Report Verified Date/Time: 12/08/2018 04:21:30 Reading Location: [address] Reading Room Performing Organization Address City/State/Zipcode Phone Number [facility] MR abdomen without & with IV contrast (12/06/2018 8:48 AM CDT) Specimen Narrative Performed At FINAL REPORT [facility] MRI of the abdomen dated December 06, [...] MD Report Verified Date/Time:12/06/2018 10:49:29 Reading Location: [facility] C013Y CT Body Reading Room Procedure Note [...] Report Verified Date/Time: 12/06/2018 10:49:29 Reading Location: [facility] C013Y CT Body Reading Room Performing Organization Address City/[facility] Centercode Phone Number [facility] Carbohydrate antigen 19-9 (CA 19-9) (12/06/2018 8:22 AM CDT) CA 19-9 <3 <34 U/mL [employer] [facility] Hydrocapsule Comment: This test was performed using the Siemens Chemiluminescent method. Values obtained from different assay methods cannot be used interchangeably. CA19-9 levels, regardless of value, should not be interpreted as absolute evidence of the presence or absence of disease. Specimen Blood Narrative Performed At Performing Lab [facility] [address] [place] [address] Rafa Gr MD, PhD, MARGARITA Performing Organization Address City/[facility] Centercode Phone Number [employer] [facility] [place] [address] INCORPORATED [address] [facility] Carcinoembryonic Antigen (CEA) (12/06/2018 5:42 AM CDT) CEA, SERUM 0.7 0.0 - 5.0 ng/mL [facility] Specimen Blood Performing Organization Address [facility] Centercopr Phone Number [address] [address] [place] Hepatitis C PCR, Quantitative (12/05/2018 11:27 AM CDT) HCV PCR, Quantitative HCV RNA not detected HCV RNA not detected [facility] Specimen Blood Narrative Performed At This test uses a Real-Time Polymerase Chain [facility] Reaction (RT-PCR) methodology and was performed using DAVID Ampliprep/DAVID TaqMan HCV test kit version 2.0 ([employer]). Reportable range for this assay is 15 - 100,000,000 IU per mL (1.18 - 8.00 Log IU/mL). Performing Organization Address [facility] Phone Number [address] [address] [place] Hepatitis panel, acute (12/05/2018 5:19 AM CDT) Hep A IgM Nonreactive Nonreactive [facility] Hep B C IgM Nonreactive Nonreactive [facility] Hepatitis C Ab Reactive (A) Nonreactive [facility] hepatitis B Surface Ag Nonreactive Nonreactive [facility] Specimen Blood Performing Organization Address City/[facility] Phone Number [address] [address] CENTER Magnesium (12/05/2018 5:19 AM CDT) Magnesium 2.1 1.6 - 2.6 mg/dL [facility] Specimen Blood Performing Organization Address [facility] Centercode Phone Number [address] [address] [phone] [place] Comprehensive metabolic panel (12/05/2018 5:19 AM CDT) Protein, Total 7.2 6.0 - 8.3 gm/dL [facility] Albumin 3.8 3.5 - 5.0 g/dL [facility] Alkaline Phosphatase 148 40 - 150 U/L [facility] Total Bilirubin 0.3 0.2 - 1.2 mg/dL [facility] Sodium 131 (L) 136 - 145 meq/L [facility] Potassium 4.0 3.5 - 5.1 meq/L [facility] Chloride 100 98 - 107 meq/L [facility] CO2 24 22 - 29 meq/L [facility] BUN 12 7 - 21 mg/dL [facility] Creatinine 0.91 0.57 - 1.25 mg/dL [facility] Glucose 98 70 - 105 mg/dL [facility] Calcium 8.9 8.4 - 10.2 mg/dL [facility] AST 135 (H) 5 - 34 U/L [facility] ALT 81 (H) 6 - 55 U/L [facility] EGFR 104Comment: ESTIMATED mL/min/1.73 sq m [facility] GFR IS NOT ACCURATE [facility] CREATININE CLEARANCE IN PREDICTING GLOMERULAR FILTRATION RATE. ESTIMATED GFR IS NOT APPLICABLE FOR DIALYSIS PATIENTS. Specimen Blood Performing Organization Address City/State/Zipcode Phone Number [facility] [address] [place] [address] [phone] CENTER Alpha fetoprotein (AFP), tumor marker (12/04/2018 9:32 PM CDT) Alpha-Fetoprotein >09367.0 (H) <10.0 ng/mL [facility] Specimen Blood Performing Organization Address City/State/Zipcode Phone Number [facility] [address] [address] CENTER CARDIAC CATH REPORT - SCAN (03/10/2018 12:01 PM CDT) Narrative Performed At [facility] Only(Ankle/Brachial Index) (03/06/2018 10:32 AM CDT) Ejection Fraction [facility] ECHO HEARTLAB MKCKESSON CPACS Specimen Impressions Performed At Right Impression [facility] 1. The posterior tibial artery had abnormal [...] PV LAB - Lower Extremity Arterial Procedure [facility] ECHO HEARTLAB MK[facility]ON [facility] Demographics Patient NATALIA Trejo Date of Study 03/06/2018 NORAH 57 Visit [id number] Male of 1960 Number Referring Ivan Crabtree Number [id number] Physician Sports Lawyer Evelia ChengInterpretingJ. Zbigniew Ramirez T Physician , RPVI Procedure Type [...] Study 03/06/2018 NORAH Age 57 Visit Number [id number] Gender Male Date of 1960 Number Referring Josefina Kirkland MD Room Number C631 Physician Sports Lawyer Evelia Cheng Interpreting Jon Ramirez T Physician [...] City/State/Zipcode Phone Number [facility] ECHO HEARTLAB [facility]ON CPACS aPTT (03/06/2018 6:42 AM CDT)Only the most recent of13 resultswithin the time period is included. PTT 107.0 (H) 22.5 - 36.0 seconds [facility] Specimen Blood Performing Organization Address City/[facility]/Zipcode Phone Number [facility] [address] [place] [address] CENTER TRANSFUSION SERVICE REPORT - SCAN (03/04/2018 6:00 PM CDT) Narrative Performed At POC ACTIVATED CLOTTING TIME (03/04/2018 3:45 PM CDT) Activated Clotting Time 269Comment: TESTED AT sec [facility] [address] [facility] [place] [address] Specimen Blood Performing Organization Address City/State/Zipcode Phone Number [place] [phone] [place] [address] CENTER CTA AAA and Runoff (03/03/2018 7:18 PM CDT) Specimen Narrative Performed At Addendum [facility] RIS REPORT STATUS:A Addendum: I reviewed the nonvascular features of this examination and concur with Dr. Restrepo's report. Signed: Juan Esparza MD Report Verified Date/Time:03/04/2018 15:50:09 Reading Location: [place] [address] Angio Body Reading Room Addendum Ends FINAL [...] dynamic data set. In the right, the [place] right SFA is occluded. The right [...] to femoral bypass graft is identified. 3.The [place] left SFA is occluded. The right [...] dictated regarding the non-vascular findings by the Prop Setter Radiologist. Signed: Shawn Restrepo MD Report Verified Date/Time:03/04/2018 07:12:51 Reading Location: [place] [id number] Cardiology MRI Procedure Note Interface, External Ris In - 03/04/2018 3:52 PM CDT Addendum Begins REPORT STATUS:A Addendum: I reviewed the nonvascular features of this examination and concur with Dr. Restrepo's report. Signed: Juan Esparza MD Report Verified Date/Time: 03/04/2018 15:50:09 Reading Location: [facility] P048 Angio Body Reading Room Addendum Ends [...] dynamic data set. In the right, the [place] right SFA is occluded. The right [...] femoral bypass graft is identified. 3. The [place] left SFA is occluded. The right [...] dictated regarding the non-vascular findings by the Prop Setter Radiologist. Signed: Shawn Restrepo MD Report Verified Date/Time: 03/04/2018 07:12:51 Reading Location: [place] [address] Cardiology MRI Performing Organization Address City/[facility]/Zipcode Phone Number [facility] Type and screen, automated (03/03/2018 2:39 PM CDT) ABO/RH AUTOMATED (BEAKER) A POSITIVE [facility] Ab Scrn NEGATIVE [facility] Specimen Blood Performing Organization Address City/[facility]/Zipcode Phone Number [facility] [address] [place] [address] XR foot 3 views right (03/03/2018 7:03 AM CDT) Specimen Narrative Performed At FINAL REPORT [facility] TECHNIQUE: Frontal, lateral, and oblique radiographs of [...] MD Report Verified Date/Time:03/03/2018 08:43:54 Reading Location: [facility] Radiology Reading Room Procedure Note Interface, [...] Report Verified Date/Time: 03/03/2018 08:43:54 Reading Location: [facility] Radiology Reading Room Performing Organization Address City/State/Zipcode Phone Number [facility] Arterial doppler leg, right (03/02/2018 9:28 PM CDT) Ejection Fraction [facility] ECHO HEARTLAB MKCKESSON CPACS Specimen Impressions Performed At Right Impression [facility] ECHO HEARTLAB [facility]ON CPACS 1. The right [...] + + + + + + !Prox PAINTER HELPER SIGN ! !18.6 !! ! + + + + + + !Mid PAINTER HELPER SIGN ! !21.7 !! ! + + + + + + !Dist PAINTER HELPER SIGN ! !30.9 !! ! + + + [...] At LAB - Lower Extremity Arterial Duplex [facility] ECHO HEARTLAB MKCKESSON [facility] Demographics Patient NATALIA Trejo Date of Study 03/02/2018 NORAH 57 Visit [id number] Male of 1960 Number Referring Ravi EllisRoom Number [id number] Physician Sports Lawyer Luis Carlos De La Torre. Zbigniew Ramirez, Physician , RPVI Procedure Type [...] Study 03/02/2018 NORAH Age 57 Visit Number [id number] Gender Male Date of 1960 Number Referring Ravi [facility] Room Number 1035 Physician Sports Lawyer Luis Carlos Villalta Interpreting Jon Ramirez, Physician [...] + + + -------+ + + !Prox PAINTER HELPER SIGN ! !18.6 ! ! ! + + + -------+ + + !Mid PAINTER HELPER SIGN ! !21.7 ! ! ! + + + -------+ + + !Dist PAINTER HELPER SIGN ! !30.9 ! ! ! + + [...] + -------+ + + Performing Organization Address City/State/[facility] Phone Number [facility] [employer] Venous doppler leg, right (03/02/2018 8:00 PM CDT) Ejection Fraction [facility] [employer] Specimen Impressions Performed At Right Impression [facility] [employer] 1. There is no deep venous obstruction [...] PV LAB - Lower Extremities DVT Study [facility] ECHO HEARTLAB MK[facility]ON [facility] Demographics Patient NameSNATALIA RICHARD Date of Study 03/02/2018 NOARH 57 Visit [id number] Male of 1960 Number Referring Ravi FontanaRoom Number 1035 Physician Sports Lawyer Marlee Gallagher T InterpretingJ. Zbigniew Ramirez, Physician , RPVI Procedure Type [...] Study 03/02/2018 NORAH Age 57 Visit Number [id number] Gender Male Date of 1960 Number Referring Ravi Fontana Room Number 1035 Physician Sports Lawyer Marlee Gallagher [facility] Interpreting Jon Ramirez, Physician , RPVI Procedure [...] are measured in cm Performing Organization Address City/[facility] Phone Number [facility]ART[facility] CPACS C-Reactive Protein (03/02/2018 6:07 PM CDT) CRP 0.04 0.00 - 0.50 mg/dL [facility] CENTER Specimen Blood Performing Organization Address [facility] Centercode Phone Number [facility] MEDICAL [address] [place] [address] CENTER after 12/18/2017 Advance Directives For more information, please contact:[address] [phone] Code Status Date Activated Date Inactivated Comments [...]
--- OUTSIDE RECORDS SUMMARY | 2018-12-19 14:18 | XMS REPORT ---
:1960 Author Organization [facility] Address [facility] [address] [place] [address] Care Team Providers Name Role Phone KAREN [...] Value Reference Range Comments CULTURE (BEAKER) (test wygr=0641) No growth in 5 days BLOOD [id number] 20:01:00 Test Item Value Reference Range Comments CULTURE (BEAKER) (test yyep=5854) No growth in 5 days SPUTUM CULTURE + GRAM [id number] 13:21:00 Test Item Value Reference Range Comments CULTURE (BEAKER) (test 4+ Normal respiratory yael raim=5442) present GRAM STAIN RESULT (BEAKER) 2+ White blood cells seen (test pmdj=9075) GRAM STAIN RESULT (BEAKER) 10-15 epithelial cells (test iwow=27717) GRAM STAIN RESULT (BEAKER) 3+ gram positive rods (test wrog=52205) GRAM STAIN RESULT (BEAKER) 3+ gram positive cocci in (test dbzf=831053) chains, pairs and clusters BASIC METABOLIC [id number] 07:38:00 Test Item Value Reference Range Comments SODIUM (BEAKER) (test 138 meq/L 136-145 uumq=119) POTASSIUM (BEAKER) (test 3.7 meq/L 3.5-5.1 trxb=560) CHLORIDE (BEAKER) (test 106 meq/L 98-107 zhui=134) CO2 (BEAKER) (test 22 meq/L 22-29 laya=027) BLOOD UREA NITROGEN 6 mg/dL 7-21 (BEAKER) (test libf=078) CREATININE (BEAKER) (test 0.71 mg/dL 0.57-1.25 dbnn=838) GLUCOSE RANDOM (BEAKER) 91 mg/dL 70-105 (test hcqi=484) CALCIUM (BEAKER) (test 9.0 mg/dL 8.4-10.2 uvgc=926) EGFR (BEAKER) (test 138 mL/min/1.73 sq m ESTIMATED GFR IS NOT hwxb=1634) ACCURATE CREATININE CLEARANCE IN PREDICTING GLOMERULAR FILTRATION RATE. ESTIMATED GFR IS NOT APPLICABLE FOR DIALYSIS PATIENTS. CBC W/PLT COUNT & AUTO [id number] 05:19:00 Test Item Value Reference Range Comments WHITE BLOOD CELL COUNT (BEAKER) (test btqb=134) 11.9 K/ L 3.5-10.5 RED BLOOD CELL COUNT (BEAKER) (test ecgd=783) 3.59 M/ L 4.63-6.08 HEMOGLOBIN (BEAKER) (test rshb=003) 10.4 GM/DL 13.7-17.5 HEMATOCRIT (BEAKER) (test emjl=543) 31.4 % 40.1-51.0 MEAN CORPUSCULAR VOLUME (BEAKER) (test kgps=662) 87.5 fL 79.0-92.2 MEAN CORPUSCULAR HEMOGLOBIN (BEAKER) (test 29.0 pg 25.7-32.2 npon=877) MEAN CORPUSCULAR HEMOGLOBIN CONC (BEAKER) (test 33.1 GM/DL 32.3-36.5 wzye=233) RED CELL DISTRIBUTION WIDTH (BEAKER) (test 14.7 % 11.6-14.4 cuwe=757) PLATELET COUNT (BEAKER) (test ltbs=256) 416 K/CU MM 150-450 MEAN PLATELET VOLUME (BEAKER) (test hcoc=032) 10.1 fL 9.4-12.4 NUCLEATED RED BLOOD CELLS (BEAKER) (test 0 /100 WBC 0-0 oiyi=442) NEUTROPHILS RELATIVE PERCENT (BEAKER) (test 67 % tiuh=995) LYMPHOCYTES RELATIVE PERCENT (BEAKER) (test 20 % oznc=080) MONOCYTES RELATIVE PERCENT (BEAKER) (test 11 % amjt=518) EOSINOPHILS RELATIVE PERCENT (BEAKER) (test 2 % uiph=966) BASOPHILS RELATIVE PERCENT (BEAKER) (test 0 % mgkm=335) NEUTROPHILS ABSOLUTE COUNT (BEAKER) (test 7.97 K/ L 1.78-5.38 qczw=228) LYMPHOCYTES ABSOLUTE COUNT (BEAKER) (test 2.41 K/ L 1.32-3.57 wgmu=182) MONOCYTES ABSOLUTE COUNT (BEAKER) (test 1.26 K/ L 0.30-0.82 figc=852) EOSINOPHILS ABSOLUTE COUNT (BEAKER) (test 0.20 K/ L 0.04-0.54 ecca=924) BASOPHILS ABSOLUTE COUNT (BEAKER) (test 0.02 K/ L 0.01-0.08 jtpw=749) IMMATURE GRANULOCYTES-RELATIVE PERCENT (BEAKER) 1 % 0-1 (test tlvr=5587) URINALYSIS W/ REFLEX URINE [id number] 21:32:00 Test Item Value Reference Range Comments COLOR (BEAKER) (test bjzh=202) Yellow CLARITY (BEAKER) (test hunw=743) Clear SPECIFIC GRAVITY UA (BEAKER) (test htcd=145) 1.009 1.001-1.035 PH UA (BEAKER) (test kasp=573) 7.0 5.0-8.0 PROTEIN UA (BEAKER) (test dpaw=982) Negative Negative GLUCOSE UA (BEAKER) (test eyuk=688) Negative Negative KETONES UA (BEAKER) (test labm=882) Negative Negative BILIRUBIN UA (BEAKER) (test nals=532) Negative Negative BLOOD UA (BEAKER) (test hfof=502) Negative Negative NITRITE UA (BEAKER) (test outi=971) Negative Negative LEUKOCYTE ESTERASE UA (BEAKER) (test flxp=406) Large Negative UROBILINOGEN UA (BEAKER) (test chwb=276) 8.0 mg/dL 0.2-1.0 RBC UA (BEAKER) (test tqow=595) 1 /HPF WBC UA (BEAKER) (test rryl=882) 18 /HPF SQUAMOUS EPITHELIAL (BEAKER) (test ydic=513) < /HPF SOURCE(BEAKER) (test vfaw=9898) RESPIRATORY PANEL [id number] 20:04:00 Test Item Value Reference Range Comments HUMAN METAPNEUMOVIRUS (BEAKER) (test Not detected Not detected, Equivocal rebx=8478) RHINOVIRUS (BEAKER) (test hlzh=8679) Not detected Not detected, Equivocal INFLUENZA A (BEAKER) (test mnpm=6423) Not detected Not detected, Equivocal INFLUENZA A (NO SUBTYPE) (test Not detected, Equivocal dgoj=3878) INFLUENZA A SUBTYPE H1 (BEAKER) (test Not detected, Equivocal xbgb=5992) INFLUENZA A SUBTYPE H3 (BEAKER) (test Not detected, Equivocal fuyw=2880) INFLUENZA A SUBTYPE H1-2009 (BEAKER) Not detected, Equivocal (test xlzi=6314) INFLUENZA B (BEAKER) (test woon=5326) Not detected Not detected, Equivocal RESPIRATORY SYNCYTIAL VIRUS (BEAKER) Not detected Not detected, Equivocal (test sbqi=4201) PARAINFLUENZA VIRUS 1 (BEAKER) (test Not detected Not detected, Equivocal qsna=2560) PARAINFLUENZA VIRUS 2 (BEAKER) (test Not detected Not detected, Equivocal mqeq=8663) PARAINFLUENZA VIRUS 3 (BEAKER) (test Not detected Not detected, Equivocal xsyq=5892) PARAINFLUENZA VIRUS 4 (BEAKER) (test Not detected Not detected, Equivocal wooc=6390) ADENOVIRUS (BEAKER) (test aeae=5809) Not detected Not detected, Equivocal CORONAVIRUS 229E (BEAKER) (test Not detected Not detected, Equivocal noyu=0883) CORONAVIRUS HKU1 (BEAKER) (test Not detected Not detected, Equivocal umhm=0966) CORONAVIRUS NL63 (BEAKER) (test Not detected Not detected, Equivocal imhf=2509) CORONAVIRUS OC43 (BEAKER) (test Not detected Not detected, Equivocal vpel=8952) BORDETELLA PERTUSSIS (BEAKER) (test Not detected Not detected, Equivocal cply=2247) CHLAMYDOPHILA PNEUMONIAE (BEAKER) (test Not detected Not detected, Equivocal betd=3935) MYCOPLASMA PNEUMONIAE (BEAKER) (test Not detected Not detected, Equivocal bfwh=1587) Other viruses and bacteria not targeted by this PCR panel cannot be excluded; therefore clinical correlation and follow up of serology, culture results, and other molecular studies is required. The results are not intended to be used as the sole means for clinical diagnosis or patient management decisions. This sample was tested at the [facility] using the Outline App Respiratory Panel. It is FDA cleared and has been verified and approved by the [facility] for clinical use on nasopharyngeal swab specimens.The performance of the FilmArrayRP has not been established in individuals who received influenza vaccine. Recent administration ofa nasal influenza vaccine may cause false positive results for Influenza A and/orInfluenza B.RAD, CHEST, 1 VIEW, NON [id number] 13:42: 00Reason for exam:->feverShould this be performed at the bedside?-> YesFINAL REPORT TECHNIQUE: Frontal chest radiograph dated 12/10/2018. CLINICAL HISTORY: Fever COMPARISON STUDY: Chest radiograph dated 09/25/2017 IMPRESSION:Lungs are clear. No pleural effusion or pneumothorax. Cardiomediastinal silhouette is normal in size. No pulmonary edema. No fracture. Signed: Shantanu Ryan MDReport Verified Date/Time: 12/10/2018 13:42:21 Reading Location: [facility] Reading Room [facility] METABOLIC [id number] 07:05:00 Test Item Value Reference Range Comments SODIUM (BEAKER) (test 135 meq/L 136-145 dywb=262) POTASSIUM (BEAKER) (test 3.7 meq/L 3.5-5.1 kohi=526) CHLORIDE (BEAKER) (test 105 meq/L 98-107 qohq=838) CO2 (BEAKER) (test 23 meq/L 22-29 luld=214) BLOOD UREA NITROGEN 6 mg/dL 7-21 (BEAKER) (test szeh=669) CREATININE (BEAKER) (test 0.78 mg/dL 0.57-1.25 ctlb=634) GLUCOSE RANDOM (BEAKER) 97 mg/dL 70-105 (test ghyf=427) CALCIUM (BEAKER) (test 8.7 mg/dL 8.4-10.2 eovi=886) EGFR (BEAKER) (test 124 mL/min/1.73 sq m ESTIMATED GFR IS NOT vqmj=3786) ACCURATE CREATININE CLEARANCE IN PREDICTING GLOMERULAR FILTRATION RATE. ESTIMATED GFR IS NOT APPLICABLE FOR DIALYSIS PATIENTS. CBC W/PLT COUNT & AUTO [id number] 05:42:00 Test Item Value Reference Range Comments WHITE BLOOD CELL COUNT (BEAKER) (test rlmy=357) 13.0 K/ L 3.5-10.5 RED BLOOD CELL COUNT (BEAKER) (test ujgz=605) 3.71 M/ L 4.63-6.08 HEMOGLOBIN (BEAKER) (test iwcd=016) 10.9 GM/DL 13.7-17.5 HEMATOCRIT (BEAKER) (test uhui=421) 32.1 % 40.1-51.0 MEAN CORPUSCULAR VOLUME (BEAKER) (test gala=664) 86.5 fL 79.0-92.2 MEAN CORPUSCULAR HEMOGLOBIN (BEAKER) (test 29.4 pg 25.7-32.2 vdva=863) MEAN CORPUSCULAR HEMOGLOBIN CONC (BEAKER) (test 34.0 GM/DL 32.3-36.5 yfoh=714) RED CELL DISTRIBUTION WIDTH (BEAKER) (test 14.4 % 11.6-14.4 nvfs=902) PLATELET COUNT (BEAKER) (test wscy=279) 407 K/CU MM 150-450 MEAN PLATELET VOLUME (BEAKER) (test pdtn=471) 9.8 fL 9.4-12.4 NUCLEATED RED BLOOD CELLS (BEAKER) (test 0 /100 WBC 0-0 ntxb=297) NEUTROPHILS RELATIVE PERCENT (BEAKER) (test 72 % gpif=843) LYMPHOCYTES RELATIVE PERCENT (BEAKER) (test 17 % trrj=297) MONOCYTES RELATIVE PERCENT (BEAKER) (test 9 % ubzd=479) EOSINOPHILS RELATIVE PERCENT (BEAKER) (test 1 % mxco=827) BASOPHILS RELATIVE PERCENT (BEAKER) (test 0 % wkjr=033) NEUTROPHILS ABSOLUTE COUNT (BEAKER) (test 9.35 K/ L 1.78-5.38 jcgc=144) LYMPHOCYTES ABSOLUTE COUNT (BEAKER) (test 2.14 K/ L 1.32-3.57 egxj=802) MONOCYTES ABSOLUTE COUNT (BEAKER) (test 1.22 K/ L 0.30-0.82 kenf=728) EOSINOPHILS ABSOLUTE COUNT (BEAKER) (test 0.15 K/ L 0.04-0.54 fkoc=758) BASOPHILS ABSOLUTE COUNT (BEAKER) (test 0.04 K/ L 0.01-0.08 wjnl=423) IMMATURE GRANULOCYTES-RELATIVE PERCENT (BEAKER) 1 % 0-1 (test uxke=6130) BASIC METABOLIC [id number] 07:42:00 Test Item Value Reference Range Comments SODIUM (BEAKER) (test 135 meq/L 136-145 dksd=134) POTASSIUM (BEAKER) (test 3.9 meq/L 3.5-5.1 pclv=356) CHLORIDE (BEAKER) (test 106 meq/L 98-107 zynq=341) CO2 (BEAKER) (test 21 meq/L 22-29 arjk=440) BLOOD UREA NITROGEN 7 mg/dL 7-21 (BEAKER) (test yzdv=128) CREATININE (BEAKER) (test 0.79 mg/dL 0.57-1.25 iicr=223) GLUCOSE RANDOM (BEAKER) 87 mg/dL 70-105 (test luuo=403) CALCIUM (BEAKER) (test 8.8 mg/dL 8.4-10.2 wuko=245) EGFR (BEAKER) (test 122 mL/min/1.73 sq m ESTIMATED GFR IS NOT uasf=9783) ACCURATE CREATININE CLEARANCE IN PREDICTING GLOMERULAR FILTRATION RATE. ESTIMATED GFR IS NOT APPLICABLE FOR DIALYSIS PATIENTS. CBC W/PLT COUNT & AUTO [id number] 06:35:00 Test Item Value Reference Range Comments WHITE BLOOD CELL COUNT (BEAKER) (test rwey=876) 11.7 K/ L 3.5-10.5 RED BLOOD CELL COUNT (BEAKER) (test ivis=056) 3.73 M/ L 4.63-6.08 HEMOGLOBIN (BEAKER) (test fzxd=785) 10.9 GM/DL 13.7-17.5 HEMATOCRIT (BEAKER) (test exkr=709) 32.5 % 40.1-51.0 MEAN CORPUSCULAR VOLUME (BEAKER) (test owzb=267) 87.1 fL 79.0-92.2 MEAN CORPUSCULAR HEMOGLOBIN (BEAKER) (test 29.2 pg 25.7-32.2 pqym=958) MEAN CORPUSCULAR HEMOGLOBIN CONC (BEAKER) (test 33.5 GM/DL 32.3-36.5 qeuz=234) RED CELL DISTRIBUTION WIDTH (BEAKER) (test 14.3 % 11.6-14.4 cutj=316) PLATELET COUNT (BEAKER) (test symd=067) 427 K/CU MM 150-450 MEAN PLATELET VOLUME (BEAKER) (test cmyt=111) 10.1 fL 9.4-12.4 NUCLEATED RED BLOOD CELLS (BEAKER) (test 0 /100 WBC 0-0 apuu=051) NEUTROPHILS RELATIVE PERCENT (BEAKER) (test 70 % cezp=977) LYMPHOCYTES RELATIVE PERCENT (BEAKER) (test 19 % uhlb=735) MONOCYTES RELATIVE PERCENT (BEAKER) (test 9 % rerm=540) EOSINOPHILS RELATIVE PERCENT (BEAKER) (test 2 % lvhu=189) BASOPHILS RELATIVE PERCENT (BEAKER) (test 0 % cyti=950) NEUTROPHILS ABSOLUTE COUNT (BEAKER) (test 8.19 K/ L 1.78-5.38 kmie=563) LYMPHOCYTES ABSOLUTE COUNT (BEAKER) (test 2.25 K/ L 1.32-3.57 ovnm=656) MONOCYTES ABSOLUTE COUNT (BEAKER) (test 1.00 K/ L 0.30-0.82 bkgp=179) EOSINOPHILS ABSOLUTE COUNT (BEAKER) (test 0.19 K/ L 0.04-0.54 mifw=982) BASOPHILS ABSOLUTE COUNT (BEAKER) (test 0.03 K/ L 0.01-0.08 zlaa=037) IMMATURE GRANULOCYTES-RELATIVE PERCENT (BEAKER) 1 % 0-1 (test bpxa=0109) HEPATIC FUNCTION [id number] 06:55:00 Test Item Value Reference Range Comments TOTAL PROTEIN (BEAKER) (test addz=639) 6.7 gm/dL 6.0-8.3 ALBUMIN (BEAKER) (test kjqr=9351) 3.6 g/dL 3.5-5.0 BILIRUBIN TOTAL (BEAKER) (test vmlu=951) 0.7 mg/dL 0.2-1.2 BILIRUBIN DIRECT (BEAKER) (test hknj=424) 0.6 mg/dL 0.1-0.5 ALKALINE PHOSPHATASE (BEAKER) (test nnol=083) 267 U/L 40-150 AST (SGOT) (BEAKER) (test xboh=722) 595 U/L 5-34 ALT (SGPT) (BEAKER) (test hhjf=209) 658 U/L 6-55 BASIC METABOLIC [id number] 06:55:00 Test Item Value Reference Range Comments SODIUM (BEAKER) (test 136 meq/L 136-145 bxkk=418) POTASSIUM (BEAKER) (test 4.0 meq/L 3.5-5.1 vqwj=689) CHLORIDE (BEAKER) (test 107 meq/L 98-107 ezbt=730) CO2 (BEAKER) (test 21 meq/L 22-29 xqmq=688) BLOOD UREA NITROGEN 8 mg/dL 7-21 (BEAKER) (test fjeq=324) CREATININE (BEAKER) (test 0.75 mg/dL 0.57-1.25 etfn=360) GLUCOSE RANDOM (BEAKER) 95 mg/dL 70-105 (test kgle=136) CALCIUM (BEAKER) (test 9.1 mg/dL 8.4-10.2 nrhv=153) EGFR (BEAKER) (test 130 mL/min/1.73 sq m ESTIMATED GFR IS NOT cojs=0188) ACCURATE CREATININE CLEARANCE IN PREDICTING GLOMERULAR FILTRATION RATE. ESTIMATED GFR IS NOT APPLICABLE FOR DIALYSIS PATIENTS. [id number] 06:07:00 Test Item Value Reference Range Comments PROTIME (BEAKER) (test aemb=631) 13.2 seconds 11.9-14.2 INR (BEAKER) (test hbxe=705) 1.1 <=5.9 PARTIAL THROMBOPLASTIN TIME (BEAKER) (test 39.2 seconds 22.5-36.0 kmlk=788) Effective 10/21/2018: PT Reference Range ChangeNew: 11.9-14.2 Previous: 11.7- 14.7RECOMMENDED COUMADIN/WARFARIN INR THERAPY RANGESSTANDARD DOSE: 2.0-3.0 Includes: PROPHYLAXIS for venous thrombosis, systemic embolization; TREATMENT for venous thrombosis and/or pulmonary embolus.HIGH RISK: Target INR is2.5-3.5 for patients wiht mechanical heart valves.CBC W/PLT COUNT & AUTO [id number] 05:58:00 Test Item Value Reference Range Comments WHITE BLOOD CELL COUNT (BEAKER) (test aimi=269) 9.6 K/ L 3.5-10.5 RED BLOOD CELL COUNT (BEAKER) (test ntbw=187) 3.86 M/ L 4.63-6.08 HEMOGLOBIN (BEAKER) (test kyaj=844) 11.1 GM/DL 13.7-17.5 HEMATOCRIT (BEAKER) (test jifq=670) 33.3 % 40.1-51.0 MEAN CORPUSCULAR VOLUME (BEAKER) (test tntp=254) 86.3 fL 79.0-92.2 MEAN CORPUSCULAR HEMOGLOBIN (BEAKER) (test 28.8 pg 25.7-32.2 xevh=741) MEAN CORPUSCULAR HEMOGLOBIN CONC (BEAKER) (test 33.3 GM/DL 32.3-36.5 zjmg=017) RED CELL DISTRIBUTION WIDTH (BEAKER) (test 14.2 % 11.6-14.4 bxmh=386) PLATELET COUNT (BEAKER) (test frbo=133) 414 K/CU MM 150-450 MEAN PLATELET VOLUME (BEAKER) (test uecc=688) 9.8 fL 9.4-12.4 NUCLEATED RED BLOOD CELLS (BEAKER) (test 0 /100 WBC 0-0 nnnq=459) NEUTROPHILS RELATIVE PERCENT (BEAKER) (test 69 % ffqo=792) LYMPHOCYTES RELATIVE PERCENT (BEAKER) (test 21 % dewy=405) MONOCYTES RELATIVE PERCENT (BEAKER) (test 7 % noww=478) EOSINOPHILS RELATIVE PERCENT (BEAKER) (test 2 % hzcp=817) BASOPHILS RELATIVE PERCENT (BEAKER) (test 0 % qgvg=663) NEUTROPHILS ABSOLUTE COUNT (BEAKER) (test 6.66 K/ L 1.78-5.38 lytf=157) LYMPHOCYTES ABSOLUTE COUNT (BEAKER) (test 2.00 K/ L 1.32-3.57 zfuk=435) MONOCYTES ABSOLUTE COUNT (BEAKER) (test 0.71 K/ L 0.30-0.82 ssgi=673) EOSINOPHILS ABSOLUTE COUNT (BEAKER) (test 0.20 K/ L 0.04-0.54 nnvh=487) BASOPHILS ABSOLUTE COUNT (BEAKER) (test 0.03 K/ L 0.01-0.08 wrxx=299) IMMATURE GRANULOCYTES-RELATIVE PERCENT (BEAKER) 0 % 0-1 (test inqb=2104) CT, CHEST, WITH [id number] 04:21:00FINAL REPORT EXAMINATION: Chest CT with IV [...] Date/Time: 12/08/2018 04:21:30 Reading Location : [address] Reading Room HEPATITIS C PCR, [id number] 21:55: 00 Test Item Value Reference Range Comments HCV RESULT COMPONENT (BEAKER) HCV RNA not detected HCV RNA not detected (test tlfu=2369) This test uses a Real-Time Polymerase Chain Reaction (RT-PCR) methodology and was performed using DAVID Ampliprep/DAVID TaqMan HCV test kit version 2.0 ( [employer]).Reportable range for this assay is 15 - 100,000, 000 IU per mL (1.18 - 8.00 Log IU/mL).HEPATIC FUNCTION [id number] 05:54:00 Test Item Value Reference Range Comments TOTAL PROTEIN (BEAKER) (test titx=756) 6.6 gm/dL 6.0-8.3 ALBUMIN (BEAKER) (test gazf=0715) 3.5 g/dL 3.5-5.0 BILIRUBIN TOTAL (BEAKER) (test xvps=567) 0.3 mg/dL 0.2-1.2 BILIRUBIN DIRECT (BEAKER) (test axil=607) 0.2 mg/dL 0.1-0.5 ALKALINE PHOSPHATASE (BEAKER) (test lyyn=244) 174 U/L 40-150 AST (SGOT) (BEAKER) (test jvvo=649) 346 U/L 5-34 ALT (SGPT) (BEAKER) (test dfdz=791) 326 U/L 6-55 BASIC METABOLIC [id number] 05:54:00 Test Item Value Reference Range Comments SODIUM (BEAKER) (test 136 meq/L 136-145 muwm=512) POTASSIUM (BEAKER) (test 4.4 meq/L 3.5-5.1 lzlq=958) CHLORIDE (BEAKER) (test 108 meq/L 98-107 wyyx=539) CO2 (BEAKER) (test 21 meq/L 22-29 ymls=459) BLOOD UREA NITROGEN 11 mg/dL 7-21 (BEAKER) (test kbfz=129) CREATININE (BEAKER) (test 0.76 mg/dL 0.57-1.25 kezb=752) GLUCOSE RANDOM (BEAKER) 94 mg/dL 70-105 (test zrrz=542) CALCIUM (BEAKER) (test 8.8 mg/dL 8.4-10.2 uube=593) EGFR (BEAKER) (test 128 mL/min/1.73 sq m ESTIMATED GFR IS NOT ktuc=5764) ACCURATE CREATININE CLEARANCE IN PREDICTING GLOMERULAR FILTRATION RATE. ESTIMATED GFR IS NOT APPLICABLE FOR DIALYSIS PATIENTS. [id number] 05:33:00 Test Item Value Reference Range Comments PROTIME (BEAKER) (test ulyy=786) 14.7 seconds 11.9-14.2 INR (BEAKER) (test qegx=283) 1.2 <=5.9 PARTIAL THROMBOPLASTIN TIME (BEAKER) (test 38.1 seconds 22.5-36.0 bctw=249) Effective 10/21/2018: PT Reference Range ChangeNew: 11.9-14.2 Previous: 11.7- 14.7RECOMMENDED COUMADIN/WARFARIN INR THERAPY RANGESSTANDARD DOSE: 2.0-3.0 Includes: PROPHYLAXIS for venous thrombosis, systemic embolization; TREATMENT for venous thrombosis and/or pulmonary embolus.HIGH RISK: Target INR is2.5-3.5 for patients wiht mechanical heart valves.CBC W/PLT COUNT & AUTO [id number] 05:14:00 Test Item Value Reference Range Comments WHITE BLOOD CELL COUNT (BEAKER) (test drxb=667) 7.8 K/ L 3.5-10.5 RED BLOOD CELL COUNT (BEAKER) (test zxzv=406) 3.82 M/ L 4.63-6.08 HEMOGLOBIN (BEAKER) (test aqdr=983) 11.1 GM/DL 13.7-17.5 HEMATOCRIT (BEAKER) (test ysda=409) 33.6 % 40.1-51.0 MEAN CORPUSCULAR VOLUME (BEAKER) (test uyvk=205) 88.0 fL 79.0-92.2 MEAN CORPUSCULAR HEMOGLOBIN (BEAKER) (test 29.1 pg 25.7-32.2 mpvf=382) MEAN CORPUSCULAR HEMOGLOBIN CONC (BEAKER) (test 33.0 GM/DL 32.3-36.5 mpsd=391) RED CELL DISTRIBUTION WIDTH (BEAKER) (test 13.7 % 11.6-14.4 vsqm=037) PLATELET COUNT (BEAKER) (test qppq=499) 399 K/CU MM 150-450 MEAN PLATELET VOLUME (BEAKER) (test tdgw=786) 9.4 fL 9.4-12.4 NUCLEATED RED BLOOD CELLS (BEAKER) (test 0 /100 WBC 0-0 ytdl=151) NEUTROPHILS RELATIVE PERCENT (BEAKER) (test 62 % boig=922) LYMPHOCYTES RELATIVE PERCENT (BEAKER) (test 28 % vvwh=546) MONOCYTES RELATIVE PERCENT (BEAKER) (test 7 % ymoh=488) EOSINOPHILS RELATIVE PERCENT (BEAKER) (test 3 % soea=485) BASOPHILS RELATIVE PERCENT (BEAKER) (test 0 % vppc=337) NEUTROPHILS ABSOLUTE COUNT (BEAKER) (test 4.87 K/ L 1.78-5.38 zijy=489) LYMPHOCYTES ABSOLUTE COUNT (BEAKER) (test 2.17 K/ L 1.32-3.57 xtme=209) MONOCYTES ABSOLUTE COUNT (BEAKER) (test 0.57 K/ L 0.30-0.82 rmxn=066) EOSINOPHILS ABSOLUTE COUNT (BEAKER) (test 0.20 K/ L 0.04-0.54 nfqf=843) BASOPHILS ABSOLUTE COUNT (BEAKER) (test 0.02 K/ L 0.01-0.08 tgmb=460) IMMATURE GRANULOCYTES-RELATIVE PERCENT (BEAKER) 0 % 0-1 (test iock=9618) MR, ABDOMEN, [id number] 10:49:00FINAL REPORT MRI of the abdomen dated [...] MDReport Verified Date/Time: 12/06/2018 10:49:29 Reading Location: [address] Body Reading Room CARCINOEMBRYONIC ANTIGEN (CEA)2018-12-06 07:14:00 Test Item Value Reference Range Comments CARCINOEMBRYONIC ANTIGEN (BEAKER) (test bkbh=051) 0.7 ng/mL 0.0-5.0 HEPATIC FUNCTION [id number] 07:10:00 Test Item Value Reference Range Comments TOTAL PROTEIN (BEAKER) (test pfsr=781) 6.6 gm/dL 6.0-8.3 ALBUMIN (BEAKER) (test rudq=5203) 3.5 g/dL 3.5-5.0 BILIRUBIN TOTAL (BEAKER) (test lyet=453) 0.3 mg/dL 0.2-1.2 BILIRUBIN DIRECT (BEAKER) (test rcrl=297) 0.1 mg/dL 0.1-0.5 ALKALINE PHOSPHATASE (BEAKER) (test ubwg=389) 158 U/L 40-150 AST (SGOT) (BEAKER) (test ejtr=600) 249 U/L 5-34 ALT (SGPT) (BEAKER) (test ijfc=795) 151 U/L 6-55 BASIC METABOLIC [id number] 07:10:00 Test Item Value Reference Range Comments SODIUM (BEAKER) (test 136 meq/L 136-145 wqpr=552) POTASSIUM (BEAKER) (test 4.0 meq/L 3.5-5.1 nwjh=325) CHLORIDE (BEAKER) (test 107 meq/L 98-107 qasp=539) CO2 (BEAKER) (test 22 meq/L 22-29 llmd=443) BLOOD UREA NITROGEN 10 mg/dL 7-21 (BEAKER) (test ropq=643) CREATININE (BEAKER) (test 0.74 mg/dL 0.57-1.25 lbqz=547) GLUCOSE RANDOM (BEAKER) 86 mg/dL 70-105 (test mgcv=347) CALCIUM (BEAKER) (test 8.8 mg/dL 8.4-10.2 ysst=457) EGFR (BEAKER) (test 132 mL/min/1.73 sq m ESTIMATED GFR IS NOT bdmg=6044) ACCURATE CREATININE CLEARANCE IN PREDICTING GLOMERULAR FILTRATION RATE. ESTIMATED GFR IS NOT APPLICABLE FOR DIALYSIS PATIENTS. [id number] 06:27:00 Test Item Value Reference Range Comments PROTIME (BEAKER) (test xmoj=713) 14.1 seconds 11.9-14.2 INR (BEAKER) (test pves=538) 1.2 <=5.9 PARTIAL THROMBOPLASTIN TIME (BEAKER) (test 41.1 seconds 22.5-36.0 uypl=965) Effective 10/21/2018: PT Reference Range ChangeNew: 11.9-14.2 Previous: 11.7- 14.7RECOMMENDED COUMADIN/WARFARIN INR THERAPY RANGESSTANDARD DOSE: 2.0-3.0 Includes: PROPHYLAXIS for venous thrombosis, systemic embolization; TREATMENT for venous thrombosis and/or pulmonary embolus.HIGH RISK: Target INR is2.5-3.5 for patients wiht mechanical heart valves.CBC W/PLT COUNT & AUTO [id number] 06:18:00 Test Item Value Reference Range Comments WHITE BLOOD CELL COUNT (BEAKER) (test lcjh=619) 7.9 K/ L 3.5-10.5 RED BLOOD CELL COUNT (BEAKER) (test nsef=385) 3.79 M/ L 4.63-6.08 HEMOGLOBIN (BEAKER) (test tmrh=418) 11.0 GM/DL 13.7-17.5 HEMATOCRIT (BEAKER) (test vydh=936) 33.1 % 40.1-51.0 MEAN CORPUSCULAR VOLUME (BEAKER) (test btsw=466) 87.3 fL 79.0-92.2 MEAN CORPUSCULAR HEMOGLOBIN (BEAKER) (test 29.0 pg 25.7-32.2 cgsy=072) MEAN CORPUSCULAR HEMOGLOBIN CONC (BEAKER) (test 33.2 GM/DL 32.3-36.5 thoy=203) RED CELL DISTRIBUTION WIDTH (BEAKER) (test 13.7 % 11.6-14.4 pktp=381) PLATELET COUNT (BEAKER) (test icuj=281) 422 K/CU MM 150-450 MEAN PLATELET VOLUME (BEAKER) (test huys=324) 9.4 fL 9.4-12.4 NUCLEATED RED BLOOD CELLS (BEAKER) (test 0 /100 WBC 0-0 mrpl=490) NEUTROPHILS RELATIVE PERCENT (BEAKER) (test 58 % liwe=175) LYMPHOCYTES RELATIVE PERCENT (BEAKER) (test 33 % rrhz=277) MONOCYTES RELATIVE PERCENT (BEAKER) (test 7 % ujvr=402) EOSINOPHILS RELATIVE PERCENT (BEAKER) (test 2 % mozn=743) BASOPHILS RELATIVE PERCENT (BEAKER) (test 0 % rbhe=973) NEUTROPHILS ABSOLUTE COUNT (BEAKER) (test 4.55 K/ L 1.78-5.38 oztr=689) LYMPHOCYTES ABSOLUTE COUNT (BEAKER) (test 2.59 K/ L 1.32-3.57 pusd=042) MONOCYTES ABSOLUTE COUNT (BEAKER) (test 0.55 K/ L 0.30-0.82 phxj=831) EOSINOPHILS ABSOLUTE COUNT (BEAKER) (test 0.15 K/ L 0.04-0.54 ryes=117) BASOPHILS ABSOLUTE COUNT (BEAKER) (test 0.02 K/ L 0.01-0.08 ughd=756) IMMATURE GRANULOCYTES-RELATIVE PERCENT (BEAKER) 0 % 0-1 (test duov=4453) HEPATITIS PANEL, [id number] 07:04:00 Test Item Value Reference Range Comments HEPATITIS A IGM ANTIBODY (BEAKER) (test Nonreactive Nonreactive ctlm=100) HEPATITIS B CORE IGM ANTIBODY (BEAKER) (test Nonreactive Nonreactive hzne=639) HEPATITIS C ANTIBODY (BEAKER) (test ljkc=641) Reactive Nonreactive HEPATITIS B SURFACE ANTIGEN (2) (BEAKER) (test Nonreactive Nonreactive ygkg=3952) [id number] 06:52:00 Test Item Value Reference Range Comments MAGNESIUM (BEAKER) (test hqdi=729) 2.1 mg/dL 1.6-2.6 COMPREHENSIVE METABOLIC [id number] 06:52:00 Test Item Value Reference Range Comments TOTAL PROTEIN (BEAKER) 7.2 gm/dL 6.0-8.3 (test hotl=847) ALBUMIN (BEAKER) (test 3.8 g/dL 3.5-5.0 zjjh=9725) ALKALINE PHOSPHATASE 148 U/L 40-150 (BEAKER) (test nfek=705) BILIRUBIN TOTAL (BEAKER) 0.3 mg/dL 0.2-1.2 (test wiip=375) SODIUM (BEAKER) (test 131 meq/L 136-145 uhaz=772) POTASSIUM (BEAKER) (test 4.0 meq/L 3.5-5.1 nmoe=384) CHLORIDE (BEAKER) (test 100 meq/L 98-107 ejjk=365) CO2 (BEAKER) (test 24 meq/L 22-29 twgg=181) BLOOD UREA NITROGEN 12 mg/dL 7-21 (BEAKER) (test aazm=142) CREATININE (BEAKER) (test 0.91 mg/dL 0.57-1.25 iffj=861) GLUCOSE RANDOM (BEAKER) 98 mg/dL 70-105 (test lthw=827) CALCIUM (BEAKER) (test 8.9 mg/dL 8.4-10.2 vizm=447) AST (SGOT) (BEAKER) (test 135 U/L 5-34 rual=519) ALT (SGPT) (BEAKER) (test 81 U/L 6-55 muem=347) EGFR (BEAKER) (test 104 mL/min/1.73 sq ESTIMATED GFR IS NOT lvcf=8318) m ACCURATE CREATININE CLEARANCE IN PREDICTING GLOMERULAR FILTRATION RATE. ESTIMATED GFR IS NOT APPLICABLE FOR DIALYSIS PATIENTS. [id number] 05:58:00 Test Item Value Reference Range Comments PROTIME (BEAKER) (test fasg=968) 13.9 seconds 11.9-14.2 INR (BEAKER) (test wucj=533) 1.1 <=5.9 PARTIAL THROMBOPLASTIN TIME (BEAKER) (test 37.6 seconds 22.5-36.0 ksmj=761) Effective 10/21/2018: PT Reference Range ChangeNew: 11.9-14.2 Previous: 11.7- 14.7RECOMMENDED COUMADIN/WARFARIN INR THERAPY RANGESSTANDARD DOSE: 2.0-3.0 Includes: PROPHYLAXIS for venous thrombosis, systemic embolization; TREATMENT for venous thrombosis and/or pulmonary embolus.HIGH RISK: Target INR is2.5-3.5 for patients wiht mechanical heart valves.CBC W/PLT COUNT & AUTO [id number] 05:35:00 Test Item Value Reference Range Comments WHITE BLOOD CELL COUNT (BEAKER) (test vipl=683) 9.1 K/ L 3.5-10.5 RED BLOOD CELL COUNT (BEAKER) (test adib=294) 4.18 M/ L 4.63-6.08 HEMOGLOBIN (BEAKER) (test tfcl=636) 12.0 GM/DL 13.7-17.5 HEMATOCRIT (BEAKER) (test sgcg=271) 36.0 % 40.1-51.0 MEAN CORPUSCULAR VOLUME (BEAKER) (test jqsp=340) 86.1 fL 79.0-92.2 MEAN CORPUSCULAR HEMOGLOBIN (BEAKER) (test 28.7 pg 25.7-32.2 bwge=779) MEAN CORPUSCULAR HEMOGLOBIN CONC (BEAKER) (test 33.3 GM/DL 32.3-36.5 zixv=920) RED CELL DISTRIBUTION WIDTH (BEAKER) (test 13.4 % 11.6-14.4 uhpm=359) PLATELET COUNT (BEAKER) (test adax=520) 477 K/CU MM 150-450 MEAN PLATELET VOLUME (BEAKER) (test lsmk=657) 9.2 fL 9.4-12.4 NUCLEATED RED BLOOD CELLS (BEAKER) (test 0 /100 WBC 0-0 palk=414) NEUTROPHILS RELATIVE PERCENT (BEAKER) (test 58 % wmup=652) LYMPHOCYTES RELATIVE PERCENT (BEAKER) (test 33 % lrbn=981) MONOCYTES RELATIVE PERCENT (BEAKER) (test 7 % gtnv=135) EOSINOPHILS RELATIVE PERCENT (BEAKER) (test 2 % ibmj=534) BASOPHILS RELATIVE PERCENT (BEAKER) (test 0 % vrjk=158) NEUTROPHILS ABSOLUTE COUNT (BEAKER) (test 5.24 K/ L 1.78-5.38 tcim=167) LYMPHOCYTES ABSOLUTE COUNT (BEAKER) (test 2.94 K/ L 1.32-3.57 gckw=651) MONOCYTES ABSOLUTE COUNT (BEAKER) (test 0.66 K/ L 0.30-0.82 dltp=177) EOSINOPHILS ABSOLUTE COUNT (BEAKER) (test 0.16 K/ L 0.04-0.54 wkcx=109) BASOPHILS ABSOLUTE COUNT (BEAKER) (test 0.03 K/ L 0.01-0.08 jfxa=839) IMMATURE GRANULOCYTES-RELATIVE PERCENT (BEAKER) 0 % 0-1 (test xdcn=3511) ALPHA FETOPROTEIN (AFP), TUMOR [id number] 02:51:00 Test Item Value Reference Range Comments ALPHA-FETOPROTEIN (BEAKER) (test gjni=6595) > ng/mL <10.0 BLOOD [id number] 18:00:00 Test Item Value Reference Range Comments CULTURE (BEAKER) (test wudt=1902) No growth in 5 days BLOOD [id number] 18:00:00 Test Item Value Reference Range Comments CULTURE (BEAKER) (test zglp=4655) No growth in 5 days BLOOD [id number] 00:00:00 Test Item Value Reference Range Comments CULTURE (BEAKER) (test pmju=4728) No growth in 5 days BASIC METABOLIC [id number] 05:57:00 Test Item Value Reference Range Comments SODIUM (BEAKER) (test 139 meq/L 136-145 gvnm=314) POTASSIUM (BEAKER) (test 3.5 meq/L 3.5-5.1 jgay=626) CHLORIDE (BEAKER) (test 105 meq/L 98-107 mqgx=605) CO2 (BEAKER) (test 25 meq/L 22-29 thba=337) BLOOD UREA NITROGEN 8 mg/dL 7-21 (BEAKER) (test mmcx=155) CREATININE (BEAKER) (test 0.78 mg/dL 0.57-1.25 iqjv=011) GLUCOSE RANDOM (BEAKER) 119 mg/dL 70-105 (test kdxw=339) CALCIUM (BEAKER) (test 8.9 mg/dL 8.4-10.2 asuz=014) EGFR (BEAKER) (test 124 mL/min/1.73 sq m ESTIMATED GFR IS NOT fcxx=9805) ACCURATE CREATININE CLEARANCE IN PREDICTING GLOMERULAR FILTRATION RATE. ESTIMATED GFR IS NOT APPLICABLE FOR DIALYSIS PATIENTS. CBC W/PLT COUNT & AUTO [id number] 05:11:00 Test Item Value Reference Range Comments WHITE BLOOD CELL COUNT (BEAKER) (test yhnr=732) 10.2 K/ L 3.5-10.5 RED BLOOD CELL COUNT (BEAKER) (test jgde=719) 3.90 M/ L 4.63-6.08 HEMOGLOBIN (BEAKER) (test xrbw=565) 12.0 GM/DL 13.7-17.5 HEMATOCRIT (BEAKER) (test wwiw=369) 35.3 % 40.1-51.0 MEAN CORPUSCULAR VOLUME (BEAKER) (test igif=257) 90.5 fL 79.0-92.2 MEAN CORPUSCULAR HEMOGLOBIN (BEAKER) (test 30.8 pg 25.7-32.2 tiwm=427) MEAN CORPUSCULAR HEMOGLOBIN CONC (BEAKER) (test 34.0 GM/DL 32.3-36.5 feow=959) RED CELL DISTRIBUTION WIDTH (BEAKER) (test 13.3 % 11.6-14.4 lkhq=371) PLATELET COUNT (BEAKER) (test rxfo=787) 233 K/CU MM 150-450 MEAN PLATELET VOLUME (BEAKER) (test kezx=117) 10.9 fL 9.4-12.4 NUCLEATED RED BLOOD CELLS (BEAKER) (test 0 /100 WBC 0-0 zeig=438) NEUTROPHILS RELATIVE PERCENT (BEAKER) (test 58 % kxfs=323) LYMPHOCYTES RELATIVE PERCENT (BEAKER) (test 25 % uyeu=737) MONOCYTES RELATIVE PERCENT (BEAKER) (test 11 % uqwg=984) EOSINOPHILS RELATIVE PERCENT (BEAKER) (test 5 % ubce=046) BASOPHILS RELATIVE PERCENT (BEAKER) (test 1 % zsnt=151) NEUTROPHILS ABSOLUTE COUNT (BEAKER) (test 5.92 K/ L 1.78-5.38 cudu=453) LYMPHOCYTES ABSOLUTE COUNT (BEAKER) (test 2.51 K/ L 1.32-3.57 mszj=835) MONOCYTES ABSOLUTE COUNT (BEAKER) (test 1.12 K/ L 0.30-0.82 jomf=494) EOSINOPHILS ABSOLUTE COUNT (BEAKER) (test 0.50 K/ L 0.04-0.54 uajs=863) BASOPHILS ABSOLUTE COUNT (BEAKER) (test 0.06 K/ L 0.01-0.08 vbie=053) IMMATURE GRANULOCYTES-RELATIVE PERCENT (BEAKER) 0 % 0-1 (test foan=7752) [id number] 07:07:00 Test Item Value Reference Range Comments PARTIAL THROMBOPLASTIN TIME (BEAKER) (test 107.0 seconds 22.5-36.0 supg=141) [id number] 06:15:00 Test Item Value Reference Range Comments PARTIAL THROMBOPLASTIN TIME (BEAKER) (test 117.6 seconds 22.5-36.0 bdxy=438) [id number] 05:49:00 Test Item Value Reference Range Comments PARTIAL THROMBOPLASTIN TIME (BEAKER) (test 96.1 seconds 22.5-36.0 suwf=338) BASIC METABOLIC [id number] 05:21:00 Test Item Value Reference Range Comments SODIUM (BEAKER) (test 137 meq/L 136-145 abev=967) POTASSIUM (BEAKER) (test 3.8 meq/L 3.5-5.1 dpht=049) CHLORIDE (BEAKER) (test 104 meq/L 98-107 gfwb=506) CO2 (BEAKER) (test 24 meq/L 22-29 cowi=689) BLOOD UREA NITROGEN 9 mg/dL 7-21 (BEAKER) (test ncho=099) CREATININE (BEAKER) (test 0.80 mg/dL 0.57-1.25 ffgg=773) GLUCOSE RANDOM (BEAKER) 93 mg/dL 70-105 (test wybl=268) CALCIUM (BEAKER) (test 8.7 mg/dL 8.4-10.2 vizw=308) EGFR (BEAKER) (test 121 mL/min/1.73 sq m ESTIMATED GFR IS NOT zidv=9667) ACCURATE CREATININE CLEARANCE IN PREDICTING GLOMERULAR FILTRATION RATE. ESTIMATED GFR IS NOT APPLICABLE FOR DIALYSIS PATIENTS. CBC W/PLT COUNT & AUTO [id number] 04:58:00 Test Item Value Reference Range Comments WHITE BLOOD CELL COUNT (BEAKER) (test rbeu=499) 11.2 K/ L 3.5-10.5 RED BLOOD CELL COUNT (BEAKER) (test myhm=573) 3.92 M/ L 4.63-6.08 HEMOGLOBIN (BEAKER) (test bbtl=648) 12.0 GM/DL 13.7-17.5 HEMATOCRIT (BEAKER) (test vuaa=617) 35.0 % 40.1-51.0 MEAN CORPUSCULAR VOLUME (BEAKER) (test shcy=299) 89.3 fL 79.0-92.2 MEAN CORPUSCULAR HEMOGLOBIN (BEAKER) (test 30.6 pg 25.7-32.2 aazv=974) MEAN CORPUSCULAR HEMOGLOBIN CONC (BEAKER) (test 34.3 GM/DL 32.3-36.5 cffg=541) RED CELL DISTRIBUTION WIDTH (BEAKER) (test 13.3 % 11.6-14.4 sdaz=439) PLATELET COUNT (BEAKER) (test trvx=507) 222 K/CU MM 150-450 MEAN PLATELET VOLUME (BEAKER) (test uwnf=704) 10.6 fL 9.4-12.4 NUCLEATED RED BLOOD CELLS (BEAKER) (test 0 /100 WBC 0-0 atst=896) NEUTROPHILS RELATIVE PERCENT (BEAKER) (test 53 % vynr=370) LYMPHOCYTES RELATIVE PERCENT (BEAKER) (test 32 % vwsm=910) MONOCYTES RELATIVE PERCENT (BEAKER) (test 11 % rrlu=760) EOSINOPHILS RELATIVE PERCENT (BEAKER) (test 4 % uqwq=082) BASOPHILS RELATIVE PERCENT (BEAKER) (test 0 % edwh=421) NEUTROPHILS ABSOLUTE COUNT (BEAKER) (test 6.00 K/ L 1.78-5.38 boko=636) LYMPHOCYTES ABSOLUTE COUNT (BEAKER) (test 3.57 K/ L 1.32-3.57 shnz=262) MONOCYTES ABSOLUTE COUNT (BEAKER) (test 1.20 K/ L 0.30-0.82 iqte=707) EOSINOPHILS ABSOLUTE COUNT (BEAKER) (test 0.40 K/ L 0.04-0.54 tlvj=152) BASOPHILS ABSOLUTE COUNT (BEAKER) (test 0.03 K/ L 0.01-0.08 yrpc=364) IMMATURE GRANULOCYTES-RELATIVE PERCENT (BEAKER) 0 % 0-1 (test yuho=8761) [id number] 21:35:00 Test Item Value Reference Range Comments PARTIAL THROMBOPLASTIN TIME (BEAKER) (test 89.5 seconds 22.5-36.0 poco=949) [id number] 15:44:00 Test Item Value Reference Range Comments PARTIAL THROMBOPLASTIN TIME (BEAKER) (test 85.8 seconds 22.5-36.0 vzlv=418) [id number] 09:50:00 Test Item Value Reference Range Comments PARTIAL THROMBOPLASTIN TIME (BEAKER) (test 53.6 seconds 22.5-36.0 lhma=357) BASIC METABOLIC [id number] 06:24:00 Test Item Value Reference Range Comments SODIUM (BEAKER) (test 137 meq/L 136-145 wdqz=977) POTASSIUM (BEAKER) (test 3.8 meq/L 3.5-5.1 eacc=713) CHLORIDE (BEAKER) (test 105 meq/L 98-107 qgxf=086) CO2 (BEAKER) (test 24 meq/L 22-29 glno=034) BLOOD UREA NITROGEN 11 mg/dL 7-21 (BEAKER) (test rcib=743) CREATININE (BEAKER) (test 0.76 mg/dL 0.57-1.25 febj=816) GLUCOSE RANDOM (BEAKER) 94 mg/dL 70-105 (test ovmx=566) CALCIUM (BEAKER) (test 8.5 mg/dL 8.4-10.2 wvcr=137) EGFR (BEAKER) (test 128 mL/min/1.73 sq m ESTIMATED GFR IS NOT pref=4532) ACCURATE CREATININE CLEARANCE IN PREDICTING GLOMERULAR FILTRATION RATE. ESTIMATED GFR IS NOT APPLICABLE FOR DIALYSIS PATIENTS. CBC W/PLT COUNT & AUTO [id number] 06:22:00 Test Item Value Reference Range Comments WHITE BLOOD CELL COUNT (BEAKER) (test dtak=199) 12.3 K/ L 3.5-10.5 RED BLOOD CELL COUNT (BEAKER) (test ixvy=643) 4.01 M/ L 4.63-6.08 HEMOGLOBIN (BEAKER) (test acxe=102) 12.1 GM/DL 13.7-17.5 HEMATOCRIT (BEAKER) (test vkej=415) 36.4 % 40.1-51.0 MEAN CORPUSCULAR VOLUME (BEAKER) (test znmr=373) 90.8 fL 79.0-92.2 MEAN CORPUSCULAR HEMOGLOBIN (BEAKER) (test 30.2 pg 25.7-32.2 izhu=593) MEAN CORPUSCULAR HEMOGLOBIN CONC (BEAKER) (test 33.2 GM/DL 32.3-36.5 qbaq=352) RED CELL DISTRIBUTION WIDTH (BEAKER) (test 13.4 % 11.6-14.4 oxfh=119) PLATELET COUNT (BEAKER) (test uzyy=266) 233 K/CU MM 150-450 MEAN PLATELET VOLUME (BEAKER) (test cofh=595) 10.7 fL 9.4-12.4 NUCLEATED RED BLOOD CELLS (BEAKER) (test 0 /100 WBC 0-0 jbxj=146) NEUTROPHILS RELATIVE PERCENT (BEAKER) (test 70 % txxm=475) LYMPHOCYTES RELATIVE PERCENT (BEAKER) (test 21 % ppyz=340) MONOCYTES RELATIVE PERCENT (BEAKER) (test 7 % supl=048) EOSINOPHILS RELATIVE PERCENT (BEAKER) (test 2 % pcsr=207) BASOPHILS RELATIVE PERCENT (BEAKER) (test 0 % alxe=895) NEUTROPHILS ABSOLUTE COUNT (BEAKER) (test 8.59 K/ L 1.78-5.38 jfle=055) LYMPHOCYTES ABSOLUTE COUNT (BEAKER) (test 2.52 K/ L 1.32-3.57 gnzs=716) MONOCYTES ABSOLUTE COUNT (BEAKER) (test 0.86 K/ L 0.30-0.82 qjhg=599) EOSINOPHILS ABSOLUTE COUNT (BEAKER) (test 0.23 K/ L 0.04-0.54 plzj=895) BASOPHILS ABSOLUTE COUNT (BEAKER) (test 0.03 K/ L 0.01-0.08 ssfb=166) IMMATURE GRANULOCYTES-RELATIVE PERCENT (JOSELYN) 0 % 0-1 (test aolu=3834) [id number] 17:27:00 Test Item Value Reference Range Comments ACTIVATED CLOTTING TIME 269 sec TESTED AT [facility] [address] (JOSELYN) (test ylxu=386) [facility] [address] [address], CTA AAA, W/ [place].EXT.[id number] 15:50:00Please page me when done. Need stat cta for surgery. Thanks.Addendum BeginsREPORT STATUS:A Addendum: I reviewed the nonvascular features of this examination and concur with Dr. Restrepo's report. Signed: Juan Espraza MDReport Verified Date/ Time: 03/04/2018 15:50:09 Reading Location: [place] [address] Angio Body Reading RoomAddendum EndsFINAL REPORT CT [...] dynamic data set. In the right, the [place] right SFA is occluded. The right profunda [...] femoral bypass graft is identified. 3. The [place] left SFA is occluded. The right SFA [...] dictated regarding the non-vascular findings by the Opening Machine Cleaner Radiologist. Signed: Shawn Restrepo MDReport Verified Date/Time: 03/04/2018 07:12:51 Reading Location: [place] [id number] MRI [id number] 10:51:00 Test Item Value Reference Range Comments PARTIAL THROMBOPLASTIN TIME (BEAKER) (test 66.0 seconds 22.5-36.0 juqi=249) BASIC METABOLIC [id number] 02:33:00 Test Item Value Reference Range Comments SODIUM (BEAKER) (test 137 meq/L 136-145 ubsa=227) POTASSIUM (BEAKER) (test 3.8 meq/L 3.5-5.1 agna=432) CHLORIDE (BEAKER) (test 106 meq/L 98-107 cekq=213) CO2 (BEAKER) (test 21 meq/L 22-29 bylo=818) BLOOD UREA NITROGEN 7 mg/dL 7-21 (BEAKER) (test qbxj=047) CREATININE (BEAKER) (test 0.77 mg/dL 0.57-1.25 bapv=354) GLUCOSE RANDOM (BEAKER) 96 mg/dL 70-105 (test lheo=487) CALCIUM (BEAKER) (test 9.1 mg/dL 8.4-10.2 ygdg=020) EGFR (BEAKER) (test 126 mL/min/1.73 sq m ESTIMATED GFR IS NOT uesq=2067) ACCURATE CREATININE CLEARANCE IN PREDICTING GLOMERULAR FILTRATION RATE. ESTIMATED GFR IS NOT APPLICABLE FOR DIALYSIS PATIENTS. [id number] 02:28:00 Test Item Value Reference Range Comments PARTIAL THROMBOPLASTIN TIME (BEAKER) (test 44.6 seconds 22.5-36.0 keyr=683) CBC W/PLT COUNT & AUTO [id number] 02:20:00 Test Item Value Reference Range Comments WHITE BLOOD CELL COUNT (BEAKER) (test alej=519) 10.5 K/ L 3.5-10.5 RED BLOOD CELL COUNT (BEAKER) (test wwnb=511) 4.55 M/ L 4.63-6.08 HEMOGLOBIN (BEAKER) (test ommv=837) 14.0 GM/DL 13.7-17.5 HEMATOCRIT (BEAKER) (test nrkv=127) 40.5 % 40.1-51.0 MEAN CORPUSCULAR VOLUME (BEAKER) (test zxpf=671) 89.0 fL 79.0-92.2 MEAN CORPUSCULAR HEMOGLOBIN (BEAKER) (test 30.8 pg 25.7-32.2 vqah=816) MEAN CORPUSCULAR HEMOGLOBIN CONC (BEAKER) (test 34.6 GM/DL 32.3-36.5 facu=805) RED CELL DISTRIBUTION WIDTH (BEAKER) (test 13.3 % 11.6-14.4 eqku=735) PLATELET COUNT (BEAKER) (test ejyu=421) 262 K/CU MM 150-450 MEAN PLATELET VOLUME (BEAKER) (test nsvs=316) 10.1 fL 9.4-12.4 NUCLEATED RED BLOOD CELLS (BEAKER) (test 0 /100 WBC 0-0 lwam=802) NEUTROPHILS RELATIVE PERCENT (BEAKER) (test 57 % jfgg=914) LYMPHOCYTES RELATIVE PERCENT (BEAKER) (test 32 % gwdw=286) MONOCYTES RELATIVE PERCENT (BEAKER) (test 7 % juvi=617) EOSINOPHILS RELATIVE PERCENT (BEAKER) (test 3 % dzft=275) BASOPHILS RELATIVE PERCENT (BEAKER) (test 1 % lwmg=815) NEUTROPHILS ABSOLUTE COUNT (BEAKER) (test 6.00 K/ L 1.78-5.38 zlai=897) LYMPHOCYTES ABSOLUTE COUNT (BEAKER) (test 3.38 K/ L 1.32-3.57 eczv=791) MONOCYTES ABSOLUTE COUNT (BEAKER) (test 0.74 K/ L 0.30-0.82 ejii=458) EOSINOPHILS ABSOLUTE COUNT (BEAKER) (test 0.34 K/ L 0.04-0.54 vhpj=132) BASOPHILS ABSOLUTE COUNT (BEAKER) (test 0.05 K/ L 0.01-0.08 pjlh=614) IMMATURE GRANULOCYTES-RELATIVE PERCENT (BEAKER) 0 % 0-1 (test flsl=4978) [id number] 23:51:00 Test Item Value Reference Range Comments PARTIAL THROMBOPLASTIN TIME (BEAKER) (test > seconds 22.5-36.0 qnrn=141) [id number] 15:27:00 Test Item Value Reference Range Comments PARTIAL THROMBOPLASTIN TIME (BEAKER) (test 56.5 seconds 22.5-36.0 laxr=237) RAD, FOOT, MIN 3 VIEWS, [id number] 08:43:00Reason for exam:->Foot ulcer - r/o osteoFINAL [...] MDReport Verified Date/Time: 03/03/2018 08:43:54 Reading Location: [facility] Radiology Reading Room [id number] 08:24:00 Test Item Value Reference Range Comments PARTIAL THROMBOPLASTIN TIME (BEAKER) (test 67.3 seconds 22.5-36.0 ohjb=012) [id number] 06:15:00 Test Item Value Reference Range Comments PARTIAL THROMBOPLASTIN TIME (BEAKER) (test 180.5 seconds 22.5-36.0 gzea=672) Prior to initiating heparinBASIC METABOLIC [id number] 04:42:00 Test Item Value Reference Range Comments SODIUM (BEAKER) (test 139 meq/L 136-145 fsya=532) POTASSIUM (BEAKER) (test 3.6 meq/L 3.5-5.1 jxyq=689) CHLORIDE (BEAKER) (test 108 meq/L 98-107 bbst=545) CO2 (BEAKER) (test 25 meq/L 22-29 flfr=082) BLOOD UREA NITROGEN 8 mg/dL 7-21 (BEAKER) (test mbaa=054) CREATININE (BEAKER) (test 0.77 mg/dL 0.57-1.25 urib=672) GLUCOSE RANDOM (BEAKER) 95 mg/dL 70-105 (test rago=139) CALCIUM (BEAKER) (test 8.7 mg/dL 8.4-10.2 mary=518) EGFR (BEAKER) (test 126 mL/min/1.73 sq m ESTIMATED GFR IS NOT mcak=4917) ACCURATE CREATININE CLEARANCE IN PREDICTING GLOMERULAR FILTRATION RATE. ESTIMATED GFR IS NOT APPLICABLE FOR DIALYSIS PATIENTS. CBC W/PLT COUNT & AUTO [id number] 04:31:00 Test Item Value Reference Range Comments WHITE BLOOD CELL COUNT (BEAKER) (test tugk=585) 9.4 K/ L 3.5-10.5 RED BLOOD CELL COUNT (BEAKER) (test cxks=944) 4.41 M/ L 4.63-6.08 HEMOGLOBIN (BEAKER) (test ognk=835) 13.4 GM/DL 13.7-17.5 HEMATOCRIT (BEAKER) (test nyir=138) 39.5 % 40.1-51.0 MEAN CORPUSCULAR VOLUME (BEAKER) (test dmzc=897) 89.6 fL 79.0-92.2 MEAN CORPUSCULAR HEMOGLOBIN (BEAKER) (test 30.4 pg 25.7-32.2 krpz=709) MEAN CORPUSCULAR HEMOGLOBIN CONC (BEAKER) (test 33.9 GM/DL 32.3-36.5 alts=985) RED CELL DISTRIBUTION WIDTH (BEAKER) (test 13.4 % 11.6-14.4 holc=086) PLATELET COUNT (BEAKER) (test uwen=907) 241 K/CU MM 150-450 MEAN PLATELET VOLUME (BEAKER) (test ilpc=452) 10.2 fL 9.4-12.4 NUCLEATED RED BLOOD CELLS (BEAKER) (test 0 /100 WBC 0-0 hoii=212) NEUTROPHILS RELATIVE PERCENT (BEAKER) (test 51 % quaa=961) LYMPHOCYTES RELATIVE PERCENT (BEAKER) (test 38 % efqw=547) MONOCYTES RELATIVE PERCENT (BEAKER) (test 7 % ntxf=595) EOSINOPHILS RELATIVE PERCENT (BEAKER) (test 4 % rchm=957) BASOPHILS RELATIVE PERCENT (BEAKER) (test 0 % eycu=455) NEUTROPHILS ABSOLUTE COUNT (BEAKER) (test 4.77 K/ L 1.78-5.38 dfkk=003) LYMPHOCYTES ABSOLUTE COUNT (BEAKER) (test 3.51 K/ L 1.32-3.57 uotg=314) MONOCYTES ABSOLUTE COUNT (BEAKER) (test 0.67 K/ L 0.30-0.82 azrg=875) EOSINOPHILS ABSOLUTE COUNT (BEAKER) (test 0.37 K/ L 0.04-0.54 hepx=642) BASOPHILS ABSOLUTE COUNT (BEAKER) (test 0.03 K/ L 0.01-0.08 swdk=317) IMMATURE GRANULOCYTES-RELATIVE PERCENT (BEAKER) 0 % 0-1 (test jxrz=6270) [id number] 22:31:00 Test Item Value Reference Range Comments PARTIAL THROMBOPLASTIN TIME (BEAKER) (test 31.2 seconds 22.5-36.0 thrh=738) Prior to initiating heparinBASIC METABOLIC [id number] 18:30:00 Test Item Value Reference Range Comments SODIUM (BEAKER) (test 139 meq/L 136-145 bdqj=613) POTASSIUM (BEAKER) (test 3.6 meq/L 3.5-5.1 xjcs=827) CHLORIDE (BEAKER) (test 106 meq/L 98-107 rwjf=951) CO2 (BEAKER) (test 21 meq/L 22-29 zdzz=789) BLOOD UREA NITROGEN 8 mg/dL 7-21 (BEAKER) (test ybsa=594) CREATININE (BEAKER) (test 0.83 mg/dL 0.57-1.25 xtct=343) GLUCOSE RANDOM (BEAKER) 110 mg/dL 70-105 (test smbj=650) CALCIUM (BEAKER) (test 9.7 mg/dL 8.4-10.2 eidn=538) EGFR (BEAKER) (test 116 mL/min/1.73 sq m ESTIMATED GFR IS NOT gklc=9096) ACCURATE CREATININE CLEARANCE IN PREDICTING GLOMERULAR FILTRATION RATE. ESTIMATED GFR IS NOT APPLICABLE FOR DIALYSIS PATIENTS. C-REACTIVE [id number] 18:30:00 Test Item Value Reference Range Comments C-REACTIVE PROTEIN (BEAKER) (test izrs=300) 0.04 mg/dL 0.00-0.50 CBC W/PLT COUNT & AUTO [id number] 18:13:00 Test Item Value Reference Range Comments WHITE BLOOD CELL COUNT (BEAKER) (test wahz=704) 10.2 K/ L 3.5-10.5 RED BLOOD CELL COUNT (BEAKER) (test mikc=549) 4.65 M/ L 4.63-6.08 HEMOGLOBIN (BEAKER) (test tanl=050) 14.3 GM/DL 13.7-17.5 HEMATOCRIT (BEAKER) (test otos=141) 40.7 % 40.1-51.0 MEAN CORPUSCULAR VOLUME (BEAKER) (test yrrk=279) 87.5 fL 79.0-92.2 MEAN CORPUSCULAR HEMOGLOBIN (BEAKER) (test 30.8 pg 25.7-32.2 otck=195) MEAN CORPUSCULAR HEMOGLOBIN CONC (BEAKER) (test 35.1 GM/DL 32.3-36.5 ejkv=651) RED CELL DISTRIBUTION WIDTH (BEAKER) (test 13.3 % 11.6-14.4 rnvc=504) PLATELET COUNT (BEAKER) (test tueq=009) 238 K/CU MM 150-450 MEAN PLATELET VOLUME (BEAKER) (test tine=517) 10.1 fL 9.4-12.4 NUCLEATED RED BLOOD CELLS (BEAKER) (test 0 /100 WBC 0-0 eqgs=923) NEUTROPHILS RELATIVE PERCENT (BEAKER) (test 64 % muzy=363) LYMPHOCYTES RELATIVE PERCENT (BEAKER) (test 26 % bbao=315) MONOCYTES RELATIVE PERCENT (BEAKER) (test 7 % aheg=580) EOSINOPHILS RELATIVE PERCENT (BEAKER) (test 2 % yyul=065) BASOPHILS RELATIVE PERCENT (BEAKER) (test 0 % ctau=530) NEUTROPHILS ABSOLUTE COUNT (BEAKER) (test 6.54 K/ L 1.78-5.38 gsml=070) LYMPHOCYTES ABSOLUTE COUNT (BEAKER) (test 2.64 K/ L 1.32-3.57 jnco=835) MONOCYTES ABSOLUTE COUNT (BEAKER) (test 0.71 K/ L 0.30-0.82 yqiv=287) EOSINOPHILS ABSOLUTE COUNT (BEAKER) (test 0.21 K/ L 0.04-0.54 snai=088) BASOPHILS ABSOLUTE COUNT (BEAKER) (test 0.04 K/ L 0.01-0.08 esxk=481) IMMATURE GRANULOCYTES-RELATIVE PERCENT (BEAKER) 0 % 0-1 (test izfo=7976) TISSUE [id number] 14:18:00Surgical Pathology Report Case: [id number] Authorizing Provider: Greta Urban MD Collected: 09/25/2017 1609 Ordering Location: [facility] Received: 09/26/2017 0819 PERIOPERATIVE SERVICES Pathologist: Dejan Martin MD Specimens: A) - Plaque, LEFT FEMORAL PLAQUE B) -Plaque, RIGHT FEMORAL PLAQUE A. ARTERY, LEFT FEMORAL, ENDARTERECTOMY:CALCIFIC ATHEROSCLEROTIC PLAQUEB. ARTERY, RIGHT FEMORAL, ENDARTERECTOMY:CALCIFIC ATHEROSCLEROTIC PLAQUE WITH ATTACHED FIBRIN THROMBUS Signing Pathologist Direct Phone Line: [phone] signed by Dejan Martin MD on 09/30/2017 at 2:18 [id number]; [id number]. Left femoral plaque. B. Right femoral plaque Specimen A: Received in saline labeled "plaque", description "left femoral plaque" is a 2.5 x 2.5 x 0.5 cm aggregate of sinha-white to yellow-ferreira, rubbery fibrous tissue. Sectioning reveals focal calcification. Data Reduction Technician sections are submitted in cassette A1 for decalcification.Specimen B: Received in saline labeled "plaque", description "right femoral plaque" are three irregular, sinha-white to yellow-ferreira, rubbery portions of fibrous tissue measuring 1.5 x 1.5 x 0.2 cm in aggregate. Sectioning reveals focal calcification. The specimen is entirely submitted in cassette B1 for decalcification. [id number]/[id number] 00:38:00 Test Item Value Reference Range Comments MAGNESIUM (BEAKER) (test turj=796) 2.1 mg/dL 1.6-2.6 BASIC METABOLIC [id number] 00:38:00 Test Item Value Reference Range Comments SODIUM (BEAKER) (test 136 meq/L 136-145 fznb=478) POTASSIUM (BEAKER) (test 3.8 meq/L 3.5-5.1 aiua=649) CHLORIDE (BEAKER) (test 104 meq/L 98-107 bymg=093) CO2 (BEAKER) (test 26 meq/L 22-29 jwon=530) BLOOD UREA NITROGEN 11 mg/dL 7-21 (BEAKER) (test krab=413) CREATININE (BEAKER) (test 0.92 mg/dL 0.57-1.25 qhxc=948) GLUCOSE RANDOM (BEAKER) 99 mg/dL 70-105 (test mhud=664) CALCIUM (BEAKER) (test 8.5 mg/dL 8.4-10.2 zwae=649) EGFR (BEAKER) (test 103 mL/min/1.73 sq m ESTIMATED GFR IS NOT pulb=7777) ACCURATE CREATININE CLEARANCE IN PREDICTING GLOMERULAR FILTRATION RATE. ESTIMATED GFR IS NOT APPLICABLE FOR DIALYSIS PATIENTS. CBC W/PLT COUNT & AUTO [id number] 13:39:00 Test Item Value Reference Range Comments WHITE BLOOD CELL COUNT 14.6 K/ L 3.5-10.5 (BEAKER) (test fyrn=826) RED BLOOD CELL COUNT (BEAKER) 3.59 M/ L 4.63-6.08 (test elfu=594) HEMOGLOBIN (BEAKER) (test 11.0 GM/DL 13.7-17.5 gngf=214) HEMATOCRIT (BEAKER) (test 32.8 % 40.1-51.0 udkk=509) MEAN CORPUSCULAR VOLUME 91.4 fL 79.0-92.2 (BEAKER) (test leup=221) MEAN CORPUSCULAR HEMOGLOBIN 30.6 pg 25.7-32.2 (BEAKER) (test wyoa=227) MEAN CORPUSCULAR HEMOGLOBIN 33.5 GM/DL 32.3-36.5 CONC (BEAKER) (test bpuk=502) RED CELL DISTRIBUTION WIDTH 12.9 % 11.6-14.4 (BEAKER) (test nabw=441) PLATELET COUNT (BEAKER) (test 143 K/CU MM 150-450 krqx=676) MEAN PLATELET VOLUME (BEAKER) 10.8 fL 9.4-12.4 (test trpa=411) NUCLEATED RED BLOOD CELLS 0 /100 WBC 0-0 (BEAKER) (test ginf=617) NEUTROPHILS RELATIVE PERCENT 66 % This is an appended report. (BEAKER) (test vjao=172) These results have been appended to a previously final verified report. LYMPHOCYTES RELATIVE PERCENT 20 % This is an appended report. (BEAKER) (test ezvj=863) These results have been appended to a previously final verified report. MONOCYTES RELATIVE PERCENT 11 % This is an appended report. (BEAKER) (test orze=277) These results have been appended to a previously final verified report. EOSINOPHILS RELATIVE PERCENT 3 % This is an appended report. (BEAKER) (test hiel=911) These results have been appended to a previously final verified report. BASOPHILS RELATIVE PERCENT 0 % This is an appended report. (BEAKER) (test dppp=370) These results have been appended to a previously final verified report. NEUTROPHILS ABSOLUTE COUNT 9.59 K/ L 1.78-5.38 This is an appended report. (BEAKER) (test hzrk=063) These results have been appended to a previously final verified report. LYMPHOCYTES ABSOLUTE COUNT 2.96 K/ L 1.32-3.57 This is an appended report. (BEAKER) (test emvn=447) These results have been appended to a previously final verified report. MONOCYTES ABSOLUTE COUNT 1.59 K/ L 0.30-0.82 This is an appended report. (BEAKER) (test jkub=585) These results have been appended to a previously final verified report. EOSINOPHILS ABSOLUTE COUNT 0.37 K/ L 0.04-0.54 This is an appended report. (BEAKER) (test rpsv=111) These results have been appended to a previously final verified report. BASOPHILS ABSOLUTE COUNT 0.04 K/ L 0.01-0.08 This is an appended report. (BEAKER) (test wzgf=979) These results have been appended to a previously final verified report. IMMATURE GRANULOCYTES-RELATIVE 1 % 0-1 This is an appended report. PERCENT (BEAKER) (test These results have been wqeo=4524) appended to a previously final verified report. POCT-GLUCOSE [id number] 09:12:00 Test Item Value Reference Range Comments POC-GLUCOSE METER (BEAKER) 81 mg/dL 70-110 TESTED AT [facility] [address] [facility] (test cgsd=4269) [facility] [address] BASIC METABOLIC [id number] 05:02:00 Test Item Value Reference Range Comments SODIUM (BEAKER) (test 136 meq/L 136-145 qtue=806) POTASSIUM (BEAKER) (test 3.8 meq/L 3.5-5.1 zcon=309) CHLORIDE (BEAKER) (test 105 meq/L 98-107 mmqf=055) CO2 (BEAKER) (test 25 meq/L 22-29 sxgw=609) BLOOD UREA NITROGEN 9 mg/dL 7-21 (BEAKER) (test doca=885) CREATININE (BEAKER) (test 0.82 mg/dL 0.57-1.25 qdls=126) GLUCOSE RANDOM (BEAKER) 89 mg/dL 70-105 (test pbhl=739) CALCIUM (BEAKER) (test 8.3 mg/dL 8.4-10.2 pwdg=136) EGFR (BEAKER) (test 117 mL/min/1.73 sq m ESTIMATED GFR IS NOT azuj=9362) ACCURATE CREATININE CLEARANCE IN PREDICTING GLOMERULAR FILTRATION RATE. ESTIMATED GFR IS NOT APPLICABLE FOR DIALYSIS PATIENTS. POCT-GLUCOSE [id number] 21:22:00 Test Item Value Reference Range Comments POC-GLUCOSE METER (BEAKER) 121 mg/dL 70-110 TESTED AT [facility] [address] [place] [address] (test lfxf=9863) [facility] [address] [id number] 04:30:00 Test Item Value Reference Range Comments PHOSPHORUS (BEAKER) (test gjop=562) 2.7 mg/dL 2.3-4.7 [id number] 04:30:00 Test Item Value Reference Range Comments MAGNESIUM (BEAKER) (test kaha=517) 2.5 mg/dL 1.6-2.6 BASIC METABOLIC [id number] 04:30:00 Test Item Value Reference Range Comments SODIUM (BEAKER) (test 134 meq/L 136-145 nagl=190) POTASSIUM (BEAKER) (test 3.8 meq/L 3.5-5.1 yhkd=346) CHLORIDE (BEAKER) (test 104 meq/L 98-107 jbsu=982) CO2 (BEAKER) (test 22 meq/L 22-29 wmwc=710) BLOOD UREA NITROGEN 13 mg/dL 7-21 (BEAKER) (test wjro=292) CREATININE (BEAKER) (test 0.96 mg/dL 0.57-1.25 updi=752) GLUCOSE RANDOM (BEAKER) 115 mg/dL 70-105 (test svgw=478) CALCIUM (BEAKER) (test 8.2 mg/dL 8.4-10.2 malr=412) EGFR (BEAKER) (test 98 mL/min/1.73 sq m ESTIMATED GFR IS NOT lgxf=2450) ACCURATE CREATININE CLEARANCE IN PREDICTING GLOMERULAR FILTRATION RATE. ESTIMATED GFR IS NOT APPLICABLE FOR DIALYSIS PATIENTS. LACTIC ACID, ARTERIAL, WHOLE [id number] 04:15:00 Test Item Value Reference Range Comments LACTATE BLOOD ARTERIAL (2) (BEAKER) (test 1.0 mmol/L 0.5-2.2 iihm=1785) Effective 09/27/2015: Units/Reference Range ChangeNew: 0.5-2.2 mmol/L Previous: 5 -20 mg/dLCBC W/PLT COUNT & AUTO [id number] 04:12:00 Test Item Value Reference Range Comments WHITE BLOOD CELL COUNT (BEAKER) (test omws=784) 16.5 K/ L 3.5-10.5 RED BLOOD CELL COUNT (BEAKER) (test ella=869) 4.08 M/ L 4.63-6.08 HEMOGLOBIN (BEAKER) (test jlau=168) 12.5 GM/DL 13.7-17.5 HEMATOCRIT (BEAKER) (test cnmd=105) 36.9 % 40.1-51.0 MEAN CORPUSCULAR VOLUME (BEAKER) (test ifsa=300) 90.4 fL 79.0-92.2 MEAN CORPUSCULAR HEMOGLOBIN (BEAKER) (test 30.6 pg 25.7-32.2 oovn=981) MEAN CORPUSCULAR HEMOGLOBIN CONC (BEAKER) (test 33.9 GM/DL 32.3-36.5 btxp=751) RED CELL DISTRIBUTION WIDTH (BEAKER) (test 12.8 % 11.6-14.4 qpks=077) PLATELET COUNT (BEAKER) (test tboh=916) 183 K/CU MM 150-450 MEAN PLATELET VOLUME (BEAKER) (test oqkc=446) 10.2 fL 9.4-12.4 NUCLEATED RED BLOOD CELLS (BEAKER) (test 0 /100 WBC 0-0 xejz=155) NEUTROPHILS RELATIVE PERCENT (BEAKER) (test 80 % rjwj=081) LYMPHOCYTES RELATIVE PERCENT (BEAKER) (test 11 % ekpb=252) MONOCYTES RELATIVE PERCENT (BEAKER) (test 8 % kjbf=906) EOSINOPHILS RELATIVE PERCENT (BEAKER) (test 1 % zwxq=667) BASOPHILS RELATIVE PERCENT (BEAKER) (test 0 % vnqy=982) NEUTROPHILS ABSOLUTE COUNT (BEAKER) (test 13.15 K/ L 1.78-5.38 vfjl=278) LYMPHOCYTES ABSOLUTE COUNT (BEAKER) (test 1.85 K/ L 1.32-3.57 zkme=860) MONOCYTES ABSOLUTE COUNT (BEAKER) (test 1.36 K/ L 0.30-0.82 tdcs=099) EOSINOPHILS ABSOLUTE COUNT (BEAKER) (test 0.10 K/ L 0.04-0.54 rqis=343) BASOPHILS ABSOLUTE COUNT (BEAKER) (test 0.03 K/ L 0.01-0.08 rnpa=940) IMMATURE GRANULOCYTES-RELATIVE PERCENT (BEAKER) 0 % 0-1 (test adws=1177) CALCIUM, [id number] 03:51:00 Test Item Value Reference Range Comments CALCIUM IONIZED (BEAKER) (test ymsj=301) 1.08 mmol/L 1.12-1.27 PH, BLOOD (BEAKER) (test xupq=5260) 7.41 POCT-GLUCOSE [id number] 22:24:00 Test Item Value Reference Range Comments POC-GLUCOSE METER (BEAKER) 159 mg/dL 70-110 TESTED AT [address] (test vneq=4243) [facility] [address] RAD, CHEST, 1 VIEW, NON [id number] 19:01:00Reason for exam:->central line placement Should this [...] MDReport Verified Date/Time: 2017 19:01:26 Reading Location: [facility] C013W Consult Reading Room [id number] 18:09:00 Test Item Value Reference Range Comments PHOSPHORUS (BEAKER) (test lhmn=398) 3.1 mg/dL 2.3-4.7 [id number] 18:09:00 Test Item Value Reference Range Comments MAGNESIUM (BEAKER) (test zfqp=160) 1.7 mg/dL 1.6-2.6 BASIC METABOLIC [id number] 18:09:00 Test Item Value Reference Range Comments SODIUM (BEAKER) (test 137 meq/L 136-145 oeuz=390) POTASSIUM (BEAKER) (test 3.9 meq/L 3.5-5.1 pedi=362) CHLORIDE (BEAKER) (test 108 meq/L 98-107 wear=412) CO2 (BEAKER) (test 23 meq/L 22-29 nktq=267) BLOOD UREA NITROGEN 14 mg/dL 7-21 (BEAKER) (test yjzz=071) CREATININE (BEAKER) (test 0.95 mg/dL 0.57-1.25 ovlr=587) GLUCOSE RANDOM (BEAKER) 231 mg/dL 70-105 (test dcsf=833) CALCIUM (BEAKER) (test 8.1 mg/dL 8.4-10.2 yxlv=323) EGFR (BEAKER) (test 99 mL/min/1.73 sq m ESTIMATED GFR IS NOT rnen=3870) ACCURATE CREATININE CLEARANCE IN PREDICTING GLOMERULAR FILTRATION RATE. ESTIMATED GFR IS NOT APPLICABLE FOR DIALYSIS PATIENTS. PROTHROMBIN [id number] 18:01:00 Test Item Value Reference Range Comments PROTIME (BEAKER) (test nyuy=930) 15.8 seconds 11.7-14.7 INR (BEAKER) (test xepc=521) 1.3 <=5.9 RECOMMENDED COUMADIN/WARFARIN INR THERAPY RANGESSTANDARD DOSE: 2.0 - 3.0 Includes: PROPHYLAXIS forvenous thrombosis, systemic embolization; TREATMENT for venous thrombosis and/or pulmonary embolus.HIGH RISK: Target INR is 2.5-3.5 for patients with mechanical heart valves.[id number] 18:01:00 Test Item Value Reference Range Comments FIBRINOGEN LEVEL (BEAKER) (test agjr=147) 354 mg/dl 225-434 [id number] 18:01:00 Test Item Value Reference Range Comments PARTIAL THROMBOPLASTIN TIME (BEAKER) (test 34.5 seconds 22.5-36.0 kwns=211) CBC W/PLT COUNT & AUTO [id number] 17:52:00 Test Item Value Reference Range Comments WHITE BLOOD CELL COUNT (BEAKER) (test ibxz=428) 21.1 K/ L 3.5-10.5 RED BLOOD CELL COUNT (BEAKER) (test dodh=775) 4.68 M/ L 4.63-6.08 HEMOGLOBIN (BEAKER) (test qnmh=894) 14.3 GM/DL 13.7-17.5 HEMATOCRIT (BEAKER) (test nszs=422) 42.8 % 40.1-51.0 MEAN CORPUSCULAR VOLUME (BEAKER) (test vvst=553) 91.5 fL 79.0-92.2 MEAN CORPUSCULAR HEMOGLOBIN (BEAKER) (test 30.6 pg 25.7-32.2 hejn=980) MEAN CORPUSCULAR HEMOGLOBIN CONC (BEAKER) (test 33.4 GM/DL 32.3-36.5 oand=227) RED CELL DISTRIBUTION WIDTH (BEAKER) (test 13.0 % 11.6-14.4 zhaz=458) PLATELET COUNT (BEAKER) (test iblc=814) 216 K/CU MM 150-450 MEAN PLATELET VOLUME (BEAKER) (test angl=802) 10.3 fL 9.4-12.4 NUCLEATED RED BLOOD CELLS (BEAKER) (test 0 /100 WBC 0-0 ztwi=732) NEUTROPHILS RELATIVE PERCENT (BEAKER) (test 65 % ctqo=159) LYMPHOCYTES RELATIVE PERCENT (BEAKER) (test 24 % ifxx=092) MONOCYTES RELATIVE PERCENT (BEAKER) (test 7 % muko=041) EOSINOPHILS RELATIVE PERCENT (BEAKER) (test 3 % tclp=225) BASOPHILS RELATIVE PERCENT (BEAKER) (test 0 % jkos=954) NEUTROPHILS ABSOLUTE COUNT (BEAKER) (test 13.75 K/ L 1.78-5.38 zsao=887) LYMPHOCYTES ABSOLUTE COUNT (BEAKER) (test 4.96 K/ L 1.32-3.57 qgei=725) MONOCYTES ABSOLUTE COUNT (BEAKER) (test 1.37 K/ L 0.30-0.82 lyqs=858) EOSINOPHILS ABSOLUTE COUNT (BEAKER) (test 0.69 K/ L 0.04-0.54 rsag=664) BASOPHILS ABSOLUTE COUNT (BEAKER) (test 0.05 K/ L 0.01-0.08 lkwn=303) IMMATURE GRANULOCYTES-RELATIVE PERCENT (BEAKER) 1 % 0-1 (test bxqc=4049) HEMOGLOBIN [id number] 14:43:00 Test Item Value Reference Range Comments HEMOGLOBIN A1C (BEAKER) (test fhyf=648) 5.6 % 4.3-6.1 BASIC METABOLIC [id number] 12:35:00 Test Item Value Reference Range Comments SODIUM (BEAKER) (test 141 meq/L 136-145 hfrk=367) POTASSIUM (BEAKER) (test 4.1 meq/L 3.5-5.1 fvak=815) CHLORIDE (BEAKER) (test 105 meq/L 98-107 gthw=224) CO2 (BEAKER) (test 28 meq/L 22-29 skzx=463) BLOOD UREA NITROGEN 9 mg/dL 7-21 (BEAKER) (test ctes=810) CREATININE (BEAKER) (test 0.82 mg/dL 0.57-1.25 kiva=408) GLUCOSE RANDOM (BEAKER) 89 mg/dL 70-105 (test zwvv=575) CALCIUM (BEAKER) (test 9.5 mg/dL 8.4-10.2 erez=713) EGFR (BEAKER) (test 117 mL/min/1.73 sq m ESTIMATED GFR IS NOT gxcx=2176) ACCURATE CREATININE CLEARANCE IN PREDICTING GLOMERULAR FILTRATION RATE. ESTIMATED GFR IS NOT APPLICABLE FOR DIALYSIS PATIENTS. PROTHROMBIN [id number] 12:32:00 Test Item Value Reference Range Comments PROTIME (BEAKER) (test fvxm=162) 13.7 seconds 11.7-14.7 INR (BEAKER) (test tpar=113) 1.1 <=5.9 RECOMMENDED COUMADIN/WARFARIN INR THERAPY RANGESSTANDARD DOSE: 2.0 - 3.0 Includes: PROPHYLAXIS forvenous thrombosis, systemic embolization; TREATMENT for venous thrombosis and/or pulmonary embolus.HIGH RISK: Target INR is 2.5-3.5 for patients with mechanical heart valves.RAD, CHEST, 2 [id number] 12:21: 00Reason for Exam:->Pre-OpFINAL REPORT Chest two views INDICATION: Preoperative exam. Aortic iliac disease, femoral popliteal artery atherosclerosis COMPARISON: None available IMPRESSION: There is no focal consolidation, vascular congestion, pleural effusion, or pneumothorax. The cardiomediastinal silhouette is unremarkable. There are mild degenerative spine and shoulder changes. Signed: Yaw Lay MDReport Verified Date/Time: 09/16/2017 12:21:59 Reading Location: [facility] Radiology Reading Room CBC W/ PLT COUNT & AUTO [id number] 12:19:00 Test Item Value Reference Range Comments WHITE BLOOD CELL COUNT (BEAKER) (test mvnf=902) 8.6 K/ L 3.5-10.5 RED BLOOD CELL COUNT (BEAKER) (test hhnx=834) 5.05 M/ L 4.63-6.08 HEMOGLOBIN (BEAKER) (test wyrp=765) 15.4 GM/DL 13.7-17.5 HEMATOCRIT (BEAKER) (test xizu=062) 47.1 % 40.1-51.0 MEAN CORPUSCULAR VOLUME (BEAKER) (test ncgp=084) 93.3 fL 79.0-92.2 MEAN CORPUSCULAR HEMOGLOBIN (BEAKER) (test 30.5 pg 25.7-32.2 uyta=491) MEAN CORPUSCULAR HEMOGLOBIN CONC (BEAKER) (test 32.7 GM/DL 32.3-36.5 iysl=324) RED CELL DISTRIBUTION WIDTH (BEAKER) (test 13.0 % 11.6-14.4 iwmp=599) PLATELET COUNT (BEAKER) (test uulh=197) 272 K/CU MM 150-450 MEAN PLATELET VOLUME (BEAKER) (test ovhj=768) 10.6 fL 9.4-12.4 NUCLEATED RED BLOOD CELLS (BEAKER) (test 0 /100 WBC 0-0 ncgl=769) NEUTROPHILS RELATIVE PERCENT (BEAKER) (test 55 % ugwf=028) LYMPHOCYTES RELATIVE PERCENT (BEAKER) (test 33 % edan=096) MONOCYTES RELATIVE PERCENT (BEAKER) (test 6 % xmnr=494) EOSINOPHILS RELATIVE PERCENT (BEAKER) (test 5 % tuog=187) BASOPHILS RELATIVE PERCENT (BEAKER) (test 0 % lkka=680) NEUTROPHILS ABSOLUTE COUNT (BEAKER) (test 4.70 K/ L 1.78-5.38 gwgi=732) LYMPHOCYTES ABSOLUTE COUNT (BEAKER) (test 2.83 K/ L 1.32-3.57 txpu=624) MONOCYTES ABSOLUTE COUNT (BEAKER) (test 0.51 K/ L 0.30-0.82 ipmi=479) EOSINOPHILS ABSOLUTE COUNT (BEAKER) (test 0.46 K/ L 0.04-0.54 bjvm=432) BASOPHILS ABSOLUTE COUNT (BEAKER) (test 0.03 K/ L 0.01-0.08 zegl=680) IMMATURE GRANULOCYTES-RELATIVE PERCENT (BEAKER) 0 % 0-1 (test ntpq=7860)
[2018-12-19] MEDS ORDERED: PHENYLEPHRINE 0.5% NOSE 15ML NAS ONE (14:55)
[2018-12-19 15:05] LABS: Absolute Lymphocytes (CBC) 1.4 K/uL (0.7-4.9); Basophils % 0.2 % (0-1.3); Hematocrit 32.3 % (39.6-49.0); Lymphocytes % 10.5 % (15.3-44.8); MPV 7.8 fL (7.6-11.3); RBC Red Blood Cell Count 3.72 M/uL (4.33-5.43)
[2018-12-19 15:07] LABS: Protime INR 1.12
[2018-12-19 15:33] LABS: Albumin 2.9 g/dL (3.4-5.0); Bilirubin Direct 0.7 mg/dL (0-0.2); Bilirubin Total 0.9 mg/dL (0.2-1.0); Potassium 3.6 mmol/L (3.5-5.1); Protein, Total 8.3 g/dL (6.4-8.2)
--- NOTE | 2018-12-19 16:55 | EDPHYS ---
Physician Documentation [facility] Name: Noé Garcia Age: 58 yrs Sex: Male : 1960 Arrival Date: 12/19/2018 Time: 14:12 Bed 8 Private MD: Hiren Jeff L ED Physician Jordi Sepulveda HPI: 12/19 14:37 This 58 yrs old Black Male presents to ER via Wheelchair with complaints of Nose Bleed. [facility] 14:37 The patient presents with a nose bleed, that is apparently anterior, from the left jmm nare. Onset: The symptoms/episode began/occurred gradually, today. Modifying factors: The symptoms are alleviated by pressure. Associated signs and symptoms: Loss of consciousness: the patient experienced no loss of consciousness, Pertinent negatives: chest pain, fever, shortness of breath. This is a 58 year old male with a history of liver cancer, liver cirrhosis, htn that presents to the ED with complaints of left nostril nose bleed beginning today. Patient states having difficulty controlling bleeding. Patient currently takes lovenox for portal thrombosis. Denies fever. . Historical: - Allergies: 14:32 No Known Allergies; aj1 - PMHx: 14:32 Cirrhosis; Hypertension; liver cancer; aj1 - Immunization history:: Flu vaccine is not up to date. - Social history:: Smoking status: Patient/guardian denies using tobacco. - Ebola Screening: : Patient denies travel to an Ebola-affected area in the 21 days before illness onset. ROS: 14:37 Constitutional: Negative for fever, chills, and weight loss, Eyes: Negative for injury, jmm pain, redness, and discharge. 14:37 Back: Negative for injury and pain, Neuro: Negative for headache, weakness, numbness, tingling, and seizure. 14:37 ENT: Positive for nose bleed. 14:37 Abdomen/GI: Positive for abdominal pain. 14:37 All other systems are negative. Exam: 14:37 Head/Face: atraumatic. Eyes: EOMI, no conjunctival erythema appreciated ENT: Moist jmm Mucus Membranes Neck: Trachea midline, Supple Chest/axilla: Normal chest wall appearance and motion. Cardiovascular: Regular rate and rhythm. No edema appreciated Respiratory: Normal respirations, no respiratory distress appreciated 14:37 Back: Normal ROM Skin: General appearance color normal MS/ Extremity: Moves all extremities, no obvious deformities appreciated, no edema noted to the lower extremities Neuro: Awake and alert, normal gait Psych: Behavior is normal, Mood is normal, Patient is cooperative and pleasant 14:37 Constitutional: The patient appears in no acute distress, alert, awake. 14:37 ENT: Nose: bleeding, is seen from the left nare, and is minimal, no septal hematoma is appreciated, Posterior pharynx: is normal, no blood. 14:37 Abdomen/GI: Inspection: abdomen appears normal, Bowel sounds: normal, Palpation: abdomen is soft and non-tender, in all quadrants. Vital Signs: 14:32 BP 122 / 78; Pulse 92; Resp 18; Temp 97.7; Pulse Ox 100% on R/A; Weight 51.71 kg (R); aj1 Height 5 ft. 7 in. (170.18 cm) (R); Pain 10/10; 15:33 BP 126 / 78; Pulse 90; Resp 18; Pulse Ox 99% ; sv 16:02 BP 123 / 75; Pulse 89; Resp 16; Pulse Ox 99% ; sv 16:30 BP 118 / 77; Pulse 85; Resp 18; Pulse Ox 99% ; sv 14:32 Body Mass Index 17.85 (51.71 kg, 170.18 cm) aj1 MDM: 14:37 Patient medically screened. [facility] 16:53 Data reviewed: vital signs, nurses notes. Counseling: I had a detailed discussion with katelyn the patient and/or guardian regarding: the historical points, exam findings, and any diagnostic results supporting the discharge/admit diagnosis, the need for outpatient follow up, to return to the emergency department if symptoms worsen or persist or if there are any questions or concerns that arise at home. 16:53 ED course: Patient is alert and non toxic in appearance. Epistaxis has resolved. facundo Patient was observed in the ED for 1 hour without continued bleeding. Patient and family given strict return precautions due to anticoagulant use and hepatic disease. Family understood and agrees with the plan of care. . 12/19 14:37 Order name: Basic Metabolic Panel; Complete Time: 15:51 [facility] 12/19 14:37 Order name: CBC with Diff; Complete Time: 15:24 [facility] 12/19 14:37 Order name: Creatinine for Radiology; Complete Time: 15:50 [facility] 12/19 14:37 Order name: Hepatic Function; Complete Time: 15:51 [facility] 12/19 14:37 Order name: Lipase; Complete Time: 15:51 [facility] 12/19 14:37 Order name: PT-INR; Complete Time: 15:10 [facility] 12/19 14:37 Order name: IV Saline Lock; Complete Time: 14:54 [facility] 12/19 14:37 Order name: Labs collected and sent; Complete Time: 14:54 [facility] Administered Medications: 17:02 Not Given (Physician Discretion): Chilo-Synephrine [place] 0.5 % 2 sprays Intranasal once ss Disposition: 12/20 11:20 Co-signature as Attending Physician, Jodri Sepulveda MD I agree with the assessment and rox plan of care. Disposition: 12/19/18 16:54 Discharged to Home. Impression: Epistaxis. - Condition is Stable. - Discharge Instructions: Nosebleed, Adult. - Medication Reconciliation Form, Thank You Letter, Antibiotic Education, Prescription Opioid Use form. - Follow up: Bina Le MD; When: 2 - 3 days; Reason: Recheck today's complaints, Continuance of care, Re-evaluation by your physician. Signatures: Dispatcher [employer] EDSonia Cain RN RN aj1 Jordi Sepulveda MD MD cha Mickail, Joel, PA PA [facility] Samira Bradley Shelby RN Corrections: (The following items were deleted from the chart) 12/19 18:11 16:54 12/19/2018 16:54 Discharged to Home. Impression: Epistaxis. Condition is Stable. eb Forms are Medication Reconciliation Form, Thank You Letter, Antibiotic Education, Prescription Opioid Use. Follow up: Bina Le; When: 2 - 3 days; Reason: Recheck today's complaints, Continuance of care, Re-evaluation by your physician. tyson
--- NOTE | 2018-12-19 16:55 | ER ---
Nurse's Notes [facility] Name: Noé Garcia Age: 58 yrs Sex: Male : 1960 Arrival Date: 12/19/2018 Time: 14:12 Bed 8 Private MD: Hiren Jeff L Diagnosis: Epistaxis Presentation: 12/19 14:31 Presenting complaint: Patient states: Nose bleed that started at 0930 this morning, aj1 reports he got it to stop around 1230, but it started bleeding again 15 minutes ago. Patient also reports epigastric pain at this time. Transition of care: patient was not received from another setting of care. Onset of symptoms was December 19, 2018 at 09:30. Risk Assessment: Do you want to hurt yourself or someone else? Patient reports no desire to harm self or others. Initial Sepsis Screen: Does the patient meet any 2 criteria? No. Patient's initial sepsis screen is negative. Does the patient have a suspected source of infection? No. Patient's initial sepsis screen is negative. Care prior to arrival: None. 14:31 Method Of Arrival: Wheelchair aj 14:31 Acuity: BINH 3 aj1 Triage Assessment: 14:32 General: Appears in no apparent distress. comfortable, Behavior is calm, cooperative, aj1 appropriate for age. Pain: Complains of pain in epigastric area Pain currently is 10 out of 10 on a pain scale. Neuro: Level of Consciousness is awake, alert, obeys commands. Cardiovascular: Patient's skin is warm and dry. Respiratory: Airway is patent Respiratory effort is even, unlabored, Respiratory pattern is regular, symmetrical. Historical: - Allergies: 14:32 No Known Allergies; aj1 - PMHx: 14:32 Cirrhosis; Hypertension; liver cancer; aj1 - Immunization history:: Flu vaccine is not up to date. - Social history:: Smoking status: Patient/guardian denies using tobacco. - Ebola Screening: : Patient denies travel to an Ebola-affected area in the 21 days before illness onset. Screenin:53 Abuse screen: Denies threats or abuse. Denies injuries from another. Nutritional ss screening: No deficits noted. Tuberculosis screening: Never had TB. Fall Risk No fall in past 12 months (0 pts). No secondary diagnosis (0 pts). IV access (20 points). Ambulatory Aid- None/Bed Rest/Nurse Assist (0 pts). Gait- Normal/Bed Rest/Wheelchair (0 pts) Mental Status- Oriented to own ability (0 pts). Assessment: 14:53 General: Appears uncomfortable, Behavior is calm, cooperative, Denies fever, feeling ss ill, fatigue, chills. Pain: Denies pain. Neuro: Level of Consciousness is awake, alert, obeys commands, Oriented to person, place, time, situation. Cardiovascular: Capillary refill < 3 seconds is brisk in bilateral fingers. Respiratory: Airway is patent Respiratory effort is even, Respiratory pattern is regular, symmetrical. GI: Patient currently denies abdominal pain, diarrhea, nausea, vomiting. : No signs and/or symptoms were reported regarding the genitourinary system. EENT: Oral mucosa is moist. Throat small stringy clots noted to back of throat. Denies blurred vision difficulty swallowing. Derm: Skin is intact, is healthy with good turgor, Skin is pink, warm \T\ dry. normal. Musculoskeletal: Circulation, motion, and sensation intact. Range of motion: intact in all extremities, Swelling absent. 14:57 Reassessment: Pt verbalizes urge to blow his nose. Nasal clamp remains in place. ss Patient educated not to remove clamp or blow nose at this time. 16:10 Reassessment: clamp removed . No active bleeding noted at this time. Herman Ayers notified and updated patient on plan of care. States we will reassess for any bleeding in 30- 45 minutes prior to disposition. Vital Signs: 14:32 BP 122 / 78; Pulse 92; Resp 18; Temp 97.7; Pulse Ox 100% on R/A; Weight 51.71 kg (R); aj1 Height 5 ft. 7 in. (170.18 cm) (R); Pain 10/10; 15:33 BP 126 / 78; Pulse 90; Resp 18; Pulse Ox 99% ; sv 16:02 BP 123 / 75; Pulse 89; Resp 16; Pulse Ox 99% ; sv 16:30 BP 118 / 77; Pulse 85; Resp 18; Pulse Ox 99% ; sv 14:32 Body Mass Index 17.85 (51.71 kg, 170.18 cm) aj1 ED Course: 14:12 Patient arrived in ED. ag5 14:13 Laura Latham MD is Private Physician. ag5 14:13 Hiren Jeff MD is Private Physician. ag5 14:24 [facility]yers [facility] 14:24 Jordi Sepulveda MD is Attending Physician. [facility] 14:31 Triage completed. aj1 14:32 Arm band placed on Patient placed in an exam room. aj1 14:45 Initial lab(s) drawn, by pa, sent to lab. Inserted saline lock: 20 gauge in left sv forearm, using aseptic technique. Blood collected. Flushed left forearm with 5 ml normal saline. 14:52 Cammy Dee, RN is Primary Nurse. 14:53 Patient has correct armband on for positive identification. Bed in low position. Call ss light in reach. 15:46 Notified Nurse Practitioner and/or Physician Dust Collector Attendant of a critical lab result(s), AST [id number]. 16:53 Bina Le MD is Referral Physician. [facility] Administered Medications: 17:02 Not Given (Physician Discretion): Chilo-Synephrine [place] 0.5 % 2 sprays Intranasal once ss Outcome: 16:54 Discharge ordered by . katelyn 18:11 Patient left the ED. eb Signatures: Sonia Fletcher, RN RN aj Bina Ayala, RN RN Herman Urrutia PA PA jmm Calderon, Audri, RN RN aa5 Cammy Dee, CRISTINA RN Samira Gallardo Ajare [facility]
[2018-12-19 18:18] VITALS: TEMP 97.7
[2018-12-19 18:20] VITALS: O2SAT 99
[2018-12-19 18:22] VITALS: BP 118/77
== END 2018-12-19 18:11 | disposition home or self-care (01) ==
LOC: ER 14:13
DX: R04.0 Epistaxis (principal); I10 Essential (primary) hypertension; Z85.05 Personal history of malignant neoplasm of liver
CPT/HCPCS: 36415; 80048; 80076; 83690; 85025; 85610; 99283

== ENCOUNTER 2018-12-26 11:45 | Emergency (ER) | payer SELFPAY ==
--- OUTSIDE RECORDS SUMMARY | 2018-12-26 11:48 | XMS REPORT | Clinical Summary ---
:1960 Author Organization [facility] Address [address] [place] [address] Care Team Providers Name Role Phone Garett Royal Altamirano Primary Care Provider Mcihelle Coluter Unavailable Allergies No Known Allergies Medications Medication [...] by mouth 0 Active MG tablet daily. enoxaparin (LOVENOX) 60 Inject 0.5 mLs (50 60 Syringe 11 Active mg/0.6 mL Syrg mg total) 9 subcutaneously every 12 (twelve) hours. senna (SENOKOT) 8.6 mg Take 2 tablets 60 tablet 0 12/11/19 Active tablet (17.2 mg total) by 9 20 mouth every night as needed for Constipation. atorvastatin (LIPITOR) Take 1 tablet (40 30 [...] every 12 (twelve) hours for 7 days. docusate sodium Take 1 capsule 20 capsule 0 12/22/19 (COLACE) 100 MG capsule (100 mg total) by 9 19 mouth 2 (two) times daily for 10 days. mupirocin (BACTROBAN) 2 Apply 1 g 30 g 0 12/26/19 % ointment topically 2 (two) 9 19 times daily for 14 days. ondansetron Take 1 tablet (4 20 tablet 0 12/22/19 (ZOFRAN-ODT) 4 MG mg total) by mouth 9 19 disintegrating tablet every 8 (eight) hours as needed for Nausea for up to 10 days. cefdinir (OMNICEF) 300 Take 1 capsule 14 capsule 0 12/19/19 MG capsule (300 mg total) by 9 19 mouth 2 (two) times daily for 7 [...] of skin (HCC) Tony Valdes MD after 12/25/2017 Family History Medical History Relation Name Comments [...] Not on file Implants Implanted Type Area Card Dealer Device Identifier Shelf Model / Expiration Serial / Lot Date Grft Eptfe-Heparin Rng [id number] - [id number] Graft/P Right: ANGELA GORE & 05/12/2021 [id number] / Implanted: Qty: 1 on 09/25/2017 by Javi Urban MD [facility] Leg ASSC:MED PRDT [id number] / Synergy Stents- Left: [place] [id number] 12/24/2019 [id number] / Implanted: Qty: 1 on 03/04/2018 by Isael Rocha MD [employer] / y [id number] Stents- COOK VASCULAR [id number] 09/19/2019 [id number] / Implanted: Qty: 1 on 03/04/2018 by Isael Rocha MD Periphe / ral [id number] [employer]quet Hemashield Gold Knitted Microvel Double Velour Vascular Graft 7mm X 30cm Right: [employer] 02/22/2022 [id number] / Implanted: Qty: 1 on 09/25/2017 by Javi Urban MD Leg [id number] / Procedures Procedure Name Priority Date/Time Associated [...] unspecified vessel or lesion type, unspecified whether upper mattaponi or transplanted heart (HCC) Case Notes (3) [...] (7) STAT 03/02/2018 6:07 PM CDT after 12/25/2017 Results EKG-SCANNED (12/14/2018 3:05 PM CDT) Narrative Performed At RHYTHM STRIP - SCAN (12/14/2018 3:05 PM CDT)Only the most recent of4 resultswithin the time period is included. Narrative Performed At CBC with platelet count + automated diff (12/11/2018 4:39 AM CDT)Only the most recent of13 resultswithin the time period is included. WBC 11.9 (H) 3.5 - 10.5 K/L [facility] RBC 3.59 (L) 4.63 - 6.08 M/L [facility] Hemoglobin 10.4 (L) 13.7 - 17.5 GM/DL [facility] Hematocrit 31.4 (L) 40.1 - 51.0 % [facility] MCV 87.5 79.0 - 92.2 fL [facility] MCH 29.0 25.7 - 32.2 pg [facility] MCHC 33.1 32.3 - 36.5 GM/DL [facility] RDW 14.7 (H) 11.6 - 14.4 % [facility] Platelets 416 150 - 450 K/CU MM [facility] MPV 10.1 9.4 - 12.4 fL [facility] nRBC 0 0 - 0 /100 WBC [facility] % Neutros 67 % [facility] % Lymphs 20 % [facility] % Monos 11 % [facility] % Eos 2 % [facility] % Baso 0 % [facility] # Neutros 7.97 (H) 1.78 - 5.38 K/L [facility] # Lymphs 2.41 1.32 - 3.57 K/L [facility] # Monos 1.26 (H) 0.30 - 0.82 K/L [facility] # Eos 0.20 0.04 - 0.54 K/L [facility] # Baso 0.02 0.01 - 0.08 K/L [facility] Immature Granulocytes-Relative 1 0 - 1 % [facility] Specimen Blood Performing Organization Address City/State/Zipcode Phone Number [facility] [address] [place] [address] CENTER Basic metabolic panel (12/11/2018 4:39 AM CDT)Only the most recent of12 resultswithin the time period is included. Sodium 138 136 - 145 meq/L [facility] Potassium 3.7 3.5 - 5.1 meq/L [facility] Chloride 106 98 - 107 meq/L [facility] CO2 22 22 - 29 meq/L [facility] BUN 6 (L) 7 - 21 mg/dL [facility] Creatinine 0.71 0.57 - 1.25 mg/dL [facility] Glucose 91 70 - 105 mg/dL [facility] Calcium 9.0 8.4 - 10.2 mg/dL [facility] EGFR 138Comment: ESTIMATED GFR IS mL/min/1.73 sq m [facility] NOT ACCURATE CREATININE [facility] CLEARANCE IN PREDICTING GLOMERULAR FILTRATION RATE. ESTIMATED GFR IS NOT APPLICABLE FOR DIALYSIS PATIENTS. Specimen Blood Performing Organization Address City/[facility]/Zipcode Phone Number [facility] [address] [place] [address] [phone] [place] Sputum Culture + Gram Stain (12/11/2018 12:30 AM CDT) Result 4+ Normal respiratory yael [facility] Gram Stain Result 2+ White blood cells seen [facility] Gram Stain Result 10-15 epithelial cells [facility] Gram Stain Result 3+ gram positive rods [facility] Gram Stain Result 3+ gram positive cocci in [facility] chains, pairs and clusters MEDICAL [place] Specimen Sputum - Expectorated Performing Organization Address City/[facility]/Zipcode Phone Number [address] [address] [place] Urinalysis w/Microscopic + Reflex to Culture (12/10/2018 8:27 PM CDT) Color, UA Yellow [facility] Clarity, UA Clear [facility] Specific [place], UA 1.009 1.001 - 1.035 [facility] pH, UA 7.0 5.0 - 8.0 [facility] Protein, UA Negative Negative [facility] Glucose, UA Negative Negative [facility] Ketones, UA Negative Negative [facility] Bilirubin, UA Negative Negative [facility] Blood, UA Negative Negative [facility] Nitrite, UA Negative Negative [facility] Leukocytes, UA Large (A) Negative [facility] Urobilinogen, UA 8.0 (H) 0.2 - 1.0 mg/dL [facility] RBC, UA 1 /HPF [facility] WBC, UA 18 /HPF [facility] Squam Epithel, UA <1 /HPF [facility] Specimen Source [facility] Specimen Urine Performing Organization Address City/State/Zipcode Phone Number [address] [address] [place] Urine culture (12/10/2018 8:27 PM CDT) Result No growth [facility] Specimen Urine Performing Organization Address City/[facility] [[email or web address] Phone Number [address] [address] [phone] [place] Respiratory Panel [facility] (12/10/2018 3:54 PM CDT) Human Metapneumovirus Not detected Not detected, [facility] Rhinovirus Not detected Not detected, [facility] Influenza A Not detected Not detected, [facility] INFLUENZA A (NO SUBTYPE) Not detected, [facility] Influenza A subtype H1 Not detected, [facility] Influenza A Subtype H3 Not detected, [facility] Influenza A Subtype H1-2009 Not detected, [facility] Influenza B Not detected Not detected, [facility] Respiratory Syncytial Virus Not detected Not detected, [facility] Parainfluenza Virus 1 Not detected Not detected, [facility] Parainfluenza Virus 2 Not detected Not detected, [facility] Parainfluenza virus 3 Not detected Not detected, [facility] Parainfluenza Virus 4 Not detected Not detected, [facility] Adenovirus Not detected Not detected, [facility] Coronavirus 229E Not detected Not detected, [facility] Coronavirus HKU1 Not detected Not detected, [facility] Coronavirus NL63 Not detected Not detected, [facility] Coronavirus OC43 Not detected Not detected, [facility] Bordetella Pertussis Not detected Not detected, [facility] Chlamydophila Pneumoniae Not detected Not detected, [facility] Mycoplasma Pneumoniae Not detected Not detected, [facility] Specimen Nasopharyngeal Narrative Performed At Other viruses and bacteria not targeted by [facility] this PCR panel cannot be excluded; therefore clinical correlation and follow up of serology, culture results, and other molecular studies is required. The results are not intended to be used as the sole means for clinical diagnosis or patient management decisions. This sample was tested at the [facility] using the Covagen FilmArray Respiratory Panel. It is FDA cleared and has been verified and approved by the [facility] for clinical use on nasopharyngeal swab specimens. The performance of the FilmArray RP has not been established in individuals who received influenza vaccine.Recent administration of a nasal influenza vaccine may cause false positive results for Influenza A and/or Influenza B. Performing Organization Address City/[facility] [[email or web address]]code Phone Number [address] [address] CENTER Blood Culture - Routine (Left Venipuncture) (12/10/2018 3:54 PM CDT)Only the most recent of5 resultswithin the time period is included. Result No growth in 5 days [facility] Specimen Blood Performing Organization Address [facility] [[email or web address] Phone Number [place] [phone] [place] [address] CENTER XR chest 1 view portable / bedside (12/10/2018 12:45 PM CDT) Specimen Narrative Performed At FINAL REPORT RIS TECHNIQUE: Frontal chest radiograph dated 12/10/2018. CLINICAL HISTORY: Fever COMPARISON STUDY: Chest radiograph dated 09/25/2017 IMPRESSION: Lungs are clear. No pleural effusion or pneumothorax. Cardiomediastinal silhouette is normal in size. No pulmonary edema. No fracture. Signed: Shantanu Ryan MD Report Verified Date/Time:12/10/2018 13:42:21 Reading Location: [facility] Reading Room Procedure Note Interface, External Ris In - 12/10/2018 1:44 PM CDT FINAL REPORT TECHNIQUE: Frontal chest radiograph dated 12/10/2018. CLINICAL HISTORY: Fever COMPARISON STUDY: Chest radiograph dated 09/25/2017 IMPRESSION: Lungs are clear. No pleural effusion or pneumothorax. Cardiomediastinal silhouette is normal in size. No pulmonary edema. No fracture. Signed: Shantanu Ryan MD Report Verified Date/Time: 12/10/2018 13:42:21 Reading Location: [facility] Reading Room Performing Organization Address City/State/Zipcode Phone Number [facility] PT/aPTT (12/08/2018 5:23 AM CDT)Only the most recent of4 resultswithin the time period is included. Protime 13.2 11.9 - 14.2 seconds [facility] INR 1.1 <=5.9 [facility] PTT 39.2 (H) 22.5 - 36.0 seconds [facility] Specimen Blood Narrative Performed At Effective 10/21/2018: PT Reference Range [facility] Change New: 11.9-14.2Previous: 11.7-14.7 RECOMMENDED COUMADIN/WARFARIN INR THERAPY RANGES STANDARD DOSE: 2.0-3.0Includes: PROPHYLAXIS for venous thrombosis, systemic embolization; TREATMENT for venous thrombosis and/or pulmonary embolus. HIGH RISK: Target INR is 2.5-3.5 for patients wiht mechanical heart valves. Performing Organization Address City/[facility] [[email or web address] Phone Number [facility] [address] [place] [phone] [place] Hepatic function panel (12/08/2018 5:23 AM CDT)Only the most recent of3 resultswithin the time period is included. Protein, Total 6.7 6.0 - 8.3 gm/dL [facility] Albumin 3.6 3.5 - 5.0 g/dL [facility] Total Bilirubin 0.7 0.2 - 1.2 mg/dL [facility] Bilirubin, Direct 0.6 (H) 0.1 - 0.5 mg/dL [facility] Alkaline Phosphatase 267 (H) 40 - 150 U/L [facility] AST 595 (H) 5 - 34 U/L [facility] ALT 658 (H) 6 - 55 U/L [facility] Specimen Blood Performing Organization Address City/[facility] [[email or web address] Phone Number [place] [phone] [place] [address] chest with IV contrast (12/07/2018 9:47 PM CDT) Specimen Narrative Performed At FINAL REPORT [employer] [facility] EXAMINATION: Chest CT with IV contrast. CLINICAL [...] MD Report Verified Date/Time:12/08/2018 04:21:30 Reading Location: [address] Reading Room Procedure Note Interface, External [...] Report Verified Date/Time: 12/08/2018 04:21:30 Reading Location: [address] Reading Room Performing Organization Address City/State/Zipcode Phone Number [facility] MR abdomen without & with IV contrast (12/06/2018 8:48 AM CDT) Specimen Narrative Performed At FINAL REPORT [facility] MRI of the abdomen dated December 06, [...] MD Report Verified Date/Time:12/06/2018 10:49:29 Reading Location: [facility] [id number] CT Body Reading Room Procedure [...] Report Verified Date/Time: 12/06/2018 10:49:29 Reading Location: [address] Body Reading Room Performing Organization Address City/[facility] [[email or web address]]cooh Phone Number [facility] Carbohydrate antigen 19-9 (CA 19-9) (12/06/2018 8:22 AM CDT) CA 19-9 <3 <34 U/mL [facility] Comment: This test was performed using the Siemens Chemiluminescent method. Values obtained from different assay methods cannot be used interchangeably. CA19-9 levels, regardless of value, should not be interpreted as absolute evidence of the presence or absence of disease. Specimen Blood Narrative Performed At Performing Lab [facility] [address] [place] [address] Rafa Gr MD, PhD, MARGARITA Performing Organization Address City/[facility] [[email or web address]]code Phone Number [place] [address] INCORPORATED [address] [facility] Carcinoembryonic Antigen (CEA) (12/06/2018 5:42 AM CDT) CEA, SERUM 0.7 0.0 - 5.0 ng/mL [facility] Specimen Blood Performing Organization Address [facility] [[email or web address]]cooh Phone Number [address] [address] [place] Hepatitis C PCR, Quantitative (12/05/2018 11:27 AM CDT) HCV PCR, Quantitative HCV RNA not detected HCV RNA not detected [facility] Specimen Blood Narrative Performed At This test uses a Real-Time Polymerase Chain [facility] Reaction (RT-PCR) methodology and was performed using DAVID Ampliprep/DAVID TaqMan HCV test kit version 2.0 ([employer]). Reportable range for this assay is 15 - 100,000,000 IU per mL (1.18 - 8.00 Log IU/mL). Performing Organization Address [facility] Phone Number [address] [address] [phone] [place] Hepatitis panel, acute (12/05/2018 5:19 AM CDT) Hep A IgM Nonreactive Nonreactive [facility] Hep B C IgM Nonreactive Nonreactive [facility] Hepatitis C Ab Reactive (A) Nonreactive [facility] hepatitis B Surface Ag Nonreactive Nonreactive [facility] Specimen Blood Performing Organization Address [facility] [[email or web address] Phone Number [address] [address] CENTER Magnesium (12/05/2018 5:19 AM CDT) Magnesium 2.1 1.6 - 2.6 mg/dL [facility] Specimen Blood Performing Organization Address [facility] [[email or web address] Phone Number [address] [address] [phone] [place] Comprehensive metabolic panel (12/05/2018 5:19 AM CDT) Protein, Total 7.2 6.0 - 8.3 gm/dL [facility] Albumin 3.8 3.5 - 5.0 g/dL [facility] Alkaline Phosphatase 148 40 - 150 U/L [facility] Total Bilirubin 0.3 0.2 - 1.2 mg/dL [facility] Sodium 131 (L) 136 - 145 meq/L [facility] Potassium 4.0 3.5 - 5.1 meq/L [facility] Chloride 100 98 - 107 meq/L [facility] CO2 24 22 - 29 meq/L [facility] BUN 12 7 - 21 mg/dL [facility] Creatinine 0.91 0.57 - 1.25 mg/dL [facility] Glucose 98 70 - 105 mg/dL [facility] Calcium 8.9 8.4 - 10.2 mg/dL [facility] AST 135 (H) 5 - 34 U/L [facility] ALT 81 (H) 6 - 55 U/L [facility] EGFR 104Comment: ESTIMATED mL/min/1.73 sq m [facility] GFR IS NOT ACCURATE [facility] CREATININE CLEARANCE IN PREDICTING GLOMERULAR FILTRATION RATE. ESTIMATED GFR IS NOT APPLICABLE FOR DIALYSIS PATIENTS. Specimen Blood Performing Organization Address City/[facility]/Zipcode Phone Number [address] [address] [phone] CENTER Alpha fetoprotein (AFP), tumor marker (12/04/2018 9:32 PM CDT) Alpha-Fetoprotein >91482.0 (H) <10.0 ng/mL [facility] Specimen Blood Performing Organization Address City/[facility]/Zipcode Phone Number [address] [place] [address] CENTER CARDIAC CATH REPORT - SCAN (03/10/2018 12:01 PM CDT) Narrative Performed At [facility] Only(Ankle/Brachial Index) (03/06/2018 10:32 AM CDT) Ejection Fraction [facility] Specimen Impressions Performed At Right Impression [facility] 1. The posterior tibial artery had abnormal [...] PV LAB - Lower Extremity Arterial Procedure [facility] Demographics Patient NameSNATALIA RICHARD Date of Study 03/06/2018 NORAH 57 Visit [id number] Male of 1960 Number Referring Ivan Crabtree Number [id number] Physician Clinical Appeals Specialist Evelia ChengInterpretingJ. Zbigniew Ramirez T Physician , [...] Study 03/06/2018 NORAH Age 57 Visit Number [id number] Gender Male Date of 1960 Number Referring Josefina Kirkland MD Room Number [id number] Physician Clinical Appeals Specialist Evelia Cheng Interpreting Jon Ramirez, T Physician , RPVI Procedure Type of [...] PTT 107.0 (H) 22.5 - 36.0 seconds [facility] Specimen Blood Performing Organization Address City/[facility]/Zipcode Phone Number [facility] [address] [place] [address] CENTER TRANSFUSION SERVICE REPORT - SCAN (03/04/2018 6:00 PM CDT) Narrative Performed At POC ACTIVATED CLOTTING TIME (03/04/2018 3:45 PM CDT) Activated Clotting Time 269Comment: TESTED AT sec [facility] [address] [facility] [address] Specimen Blood Performing Organization Address City/State/Zipcode Phone Number [address] [address] CENTER CTA AAA and Runoff (03/03/2018 7:18 PM CDT) Specimen Narrative Performed At Addendum Begins RIS REPORT STATUS:A Addendum: I reviewed the nonvascular features of this examination and concur with Dr. Restrepo's report. Signed: Juan Esparza MD Report Verified Date/Time:03/04/2018 15:50:09 Reading Location: [place] [address] Angio Body Reading Room Addendum Ends FINAL [...] dynamic data set. In the right, the upper mattaponi right SFA is occluded. The right profunda [...] to femoral bypass graft is identified. 3.The upper mattaponi left SFA is occluded. The right SFA [...] dictated regarding the non-vascular findings by the Founder Radiologist. Signed: Shawn Restrepo MD Report Verified Date/Time:03/04/2018 07:12:51 Reading Location: [place] [id number] Cardiology MRI Procedure Note Interface, External Ris In - 03/04/2018 3:52 PM CDT Addendum Begins REPORT STATUS:A Addendum: I reviewed the nonvascular features of this examination and concur with Dr. Restrepo's report. Signed: Juan Esparza MD Report Verified Date/Time: 03/04/2018 15:50:09 Reading Location: [facility] [address] Angio Body Reading Room Addendum [...] dynamic data set. In the right, the upper mattaponi right SFA is occluded. The right profunda [...] femoral bypass graft is identified. 3. The upper mattaponi left SFA is occluded. The right SFA [...] dictated regarding the non-vascular findings by the Founder Radiologist. Signed: Shawn Restrepo MD Report Verified Date/Time: 03/04/2018 07:12:51 Reading Location: [place] [address] Cardiology MRI Performing Organization Address City/[facility] [[email or web address]]code Phone Number [facility] Type and screen, automated (03/03/2018 2:39 PM CDT) ABO/RH AUTOMATED (BEAKER) A POSITIVE [facility] Ab Scrn NEGATIVE [facility] Specimen Blood Performing Organization Address City/[facility]/Zipcode Phone Number [facility] [address] [place] [address] XR foot 3 views right (03/03/2018 7:03 AM CDT) Specimen Narrative Performed At FINAL REPORT [facility] TECHNIQUE: Frontal, lateral, and oblique radiographs of [...] MD Report Verified Date/Time:03/03/2018 08:43:54 Reading Location: [facility] Radiology Reading Room Procedure Note [...] Report Verified Date/Time: 03/03/2018 08:43:54 Reading Location: [facility] Radiology Reading Room Performing Organization Address City/State/Zipcode Phone Number [facility] Arterial doppler leg, right (03/02/2018 9:28 PM CDT) Ejection Fraction [facility]ART[facility] MKCKESSON CPACS Specimen Impressions Performed At Right Impression [facility] CPACS 1. [...] + + + + + + !Prox NURSING INFORMATICS CLINICAL ANALYST ! !18.6 !! ! + + + + + + !Mid NURSING INFORMATICS CLINICAL ANALYST ! !21.7 !! ! + + + + + + !Dist NURSING INFORMATICS CLINICAL ANALYST ! !30.9 !! ! + + + [...] At LAB - Lower Extremity Arterial Duplex [facility] Demographics Patient NATALIA Trejo Date of Study 03/02/2018 NORAH 57 Visit [id number] Male of 1960 Number [id number] Physician Clinical Appeals Specialist [facility] Zbigniew Ramirez, Physician , RPVI Procedure Type [...] Study 03/02/2018 NORAH Age 57 Visit Number [id number] Gender Male Date of 1960 Number Referring Ravi Putnam [place] [facility] Number [id number] Physician Clinical Appeals Specialist Luis Carlos Villalta Interpreting Jon Ramirez, Physician [...] + + + -------+ + + !Prox NURSING INFORMATICS CLINICAL ANALYST ! !18.6 ! ! ! + + + -------+ + + !Mid NURSING INFORMATICS CLINICAL ANALYST ! !21.7 ! ! ! + + + -------+ + + !Dist NURSING INFORMATICS CLINICAL ANALYST ! !30.9 ! ! ! + + [...] + -------+ + + Performing Organization Address City/State/[facility] [[email or web address] Phone Number [facility] ARCsys Venous doppler leg, right (03/02/2018 8:00 PM CDT) Ejection Fraction [facility] ARCsys Specimen Impressions Performed At Right Impression [facility] ARCsys 1. There is no deep venous obstruction [...] PV LAB - Lower Extremities DVT Study [facility] Demographics Patient NameSNATALIA RICHARD Date of Study 03/02/2018 NORAH 57 Visit [id number] Male of 1960 Number Referring Ravi FontanaRoom Number [id number] Physician Clinical Appeals Specialist Marlee Gallagher T InterpretingJ. Zbigniew Ramirez, Physician [...] Study 03/02/2018 NORAH Age 57 Visit Number [id number] Gender Male Date of 1960 Number Referring Ravi Fontana Room Number [id number] Physician Clinical Appeals Specialist Marlee Gallagher [facility] Interpreting Jon Ramirez, Physician , RPVI Procedure [...] are measured in cm Performing Organization Address City/[facility] [[email or web address]]cooh Phone Number [facility]ART[facility] CPACS C-Reactive Protein (03/02/2018 6:07 PM CDT) CRP 0.04 0.00 - 0.50 mg/dL [facility] CENTER Specimen Blood Performing Organization Address [facility] [[email or web address]]cooh Phone Number [facility] [address] [place], [place] [phone] CENTER after 12/25/2017 Advance Directives For more information, please contact:[address] [phone] Code Status Date Activated Date Inactivated Comments [...]
--- OUTSIDE RECORDS SUMMARY | 2018-12-26 11:50 | XMS REPORT ---
:1960 [facility] [address] [place] [address] Care Team Providers Name Role Phone ERICLISANDROKAREN BragaJULIAN Unavailable Unavailable CARLI WAN Unavailable Unavailable GRETA URBAN Unavailable Unavailable Problems This patient has no known problems. Allergies, Adverse Reactions, Alerts This patient has no known allergies or adverse reactions. Medications This patient has no known medications. Results Test Description Test Time Test Comments Text Results Atomic Results Result Comments BLOOD CULTURE 2018-12-15 20:01:00 Test Item Value Reference Range Comments CULTURE (BEAKER) (test yqsb=1839) No growth in 5 days BLOOD [id number] 20:01:00 Test Item Value Reference Range Comments CULTURE (BEAKER) (test ggul=8549) No growth in 5 days SPUTUM CULTURE + GRAM [id number] 13:21:00 Test Item Value Reference Range Comments CULTURE (BEAKER) (test 4+ Normal respiratory yael zecq=4790) present GRAM STAIN RESULT (BEAKER) 2+ White blood cells seen (test fwew=3280) GRAM STAIN RESULT (BEAKER) 10-15 epithelial cells (test nert=59430) GRAM STAIN RESULT (BEAKER) 3+ gram positive rods (test mkgi=39573) GRAM STAIN RESULT (BEAKER) 3+ gram positive cocci in (test xsjr=831211) chains, pairs and clusters BASIC METABOLIC [id number] 07:38:00 Test Item Value Reference Range Comments SODIUM (BEAKER) (test 138 meq/L 136-145 eisb=206) POTASSIUM (BEAKER) (test 3.7 meq/L 3.5-5.1 tdkn=617) CHLORIDE (BEAKER) (test 106 meq/L 98-107 jmds=214) CO2 (BEAKER) (test 22 meq/L 22-29 uwwx=766) BLOOD UREA NITROGEN 6 mg/dL 7-21 (BEAKER) (test vysu=241) CREATININE (BEAKER) (test 0.71 mg/dL 0.57-1.25 ofwm=698) GLUCOSE RANDOM (BEAKER) 91 mg/dL 70-105 (test dslf=536) CALCIUM (BEAKER) (test 9.0 mg/dL 8.4-10.2 mdtl=483) EGFR (BEAKER) (test 138 mL/min/1.73 sq m ESTIMATED GFR IS NOT gdqp=3905) ACCURATE CREATININE CLEARANCE IN PREDICTING GLOMERULAR FILTRATION RATE. ESTIMATED GFR IS NOT APPLICABLE FOR DIALYSIS PATIENTS. CBC W/PLT COUNT & AUTO [id number] 05:19:00 Test Item Value Reference Range Comments WHITE BLOOD CELL COUNT (BEAKER) (test iyzm=149) 11.9 K/ L 3.5-10.5 RED BLOOD CELL COUNT (BEAKER) (test vqze=150) 3.59 M/ L 4.63-6.08 HEMOGLOBIN (BEAKER) (test bvju=928) 10.4 GM/DL 13.7-17.5 HEMATOCRIT (BEAKER) (test hjwt=283) 31.4 % 40.1-51.0 MEAN CORPUSCULAR VOLUME (BEAKER) (test vuvs=419) 87.5 fL 79.0-92.2 MEAN CORPUSCULAR HEMOGLOBIN (BEAKER) (test 29.0 pg 25.7-32.2 egur=902) MEAN CORPUSCULAR HEMOGLOBIN CONC (BEAKER) (test 33.1 GM/DL 32.3-36.5 jhri=348) RED CELL DISTRIBUTION WIDTH (BEAKER) (test 14.7 % 11.6-14.4 gzco=457) PLATELET COUNT (BEAKER) (test lnxv=011) 416 K/CU MM 150-450 MEAN PLATELET VOLUME (BEAKER) (test jkvd=388) 10.1 fL 9.4-12.4 NUCLEATED RED BLOOD CELLS (BEAKER) (test 0 /100 WBC 0-0 jyso=079) NEUTROPHILS RELATIVE PERCENT (BEAKER) (test 67 % fmpj=936) LYMPHOCYTES RELATIVE PERCENT (BEAKER) (test 20 % flfr=677) MONOCYTES RELATIVE PERCENT (BEAKER) (test 11 % nzhm=847) EOSINOPHILS RELATIVE PERCENT (BEAKER) (test 2 % qqli=032) BASOPHILS RELATIVE PERCENT (BEAKER) (test 0 % wtgh=393) NEUTROPHILS ABSOLUTE COUNT (BEAKER) (test 7.97 K/ L 1.78-5.38 ebjs=130) LYMPHOCYTES ABSOLUTE COUNT (BEAKER) (test 2.41 K/ L 1.32-3.57 laae=681) MONOCYTES ABSOLUTE COUNT (BEAKER) (test 1.26 K/ L 0.30-0.82 bnth=064) EOSINOPHILS ABSOLUTE COUNT (BEAKER) (test 0.20 K/ L 0.04-0.54 ugix=598) BASOPHILS ABSOLUTE COUNT (BEAKER) (test 0.02 K/ L 0.01-0.08 rnha=168) IMMATURE GRANULOCYTES-RELATIVE PERCENT (BEAKER) 1 % 0-1 (test oyky=2163) URINALYSIS W/ REFLEX URINE [id number] 21:32:00 Test Item Value Reference Range Comments COLOR (BEAKER) (test qjap=147) Yellow CLARITY (BEAKER) (test txvx=397) Clear SPECIFIC GRAVITY UA (BEAKER) (test yhot=262) 1.009 1.001-1.035 PH UA (BEAKER) (test grzb=249) 7.0 5.0-8.0 PROTEIN UA (BEAKER) (test blcn=605) Negative Negative GLUCOSE UA (BEAKER) (test woho=000) Negative Negative KETONES UA (BEAKER) (test wdgk=689) Negative Negative BILIRUBIN UA (BEAKER) (test qjbb=646) Negative Negative BLOOD UA (BEAKER) (test iyyc=846) Negative Negative NITRITE UA (BEAKER) (test qmpx=297) Negative Negative LEUKOCYTE ESTERASE UA (BEAKER) (test xkwm=341) Large Negative UROBILINOGEN UA (BEAKER) (test qvdj=404) 8.0 mg/dL 0.2-1.0 RBC UA (BEAKER) (test ajry=977) 1 /HPF WBC UA (BEAKER) (test fgja=963) 18 /HPF SQUAMOUS EPITHELIAL (BEAKER) (test wrwq=326) < /HPF SOURCE(BEAKER) (test rrfm=0025) RESPIRATORY PANEL [id number] 20:04:00 Test Item Value Reference Range Comments HUMAN METAPNEUMOVIRUS (BEAKER) (test Not detected Not detected, Equivocal gqwk=7100) RHINOVIRUS (BEAKER) (test ybhz=5895) Not detected Not detected, Equivocal INFLUENZA A (BEAKER) (test mfia=9775) Not detected Not detected, Equivocal INFLUENZA A (NO SUBTYPE) (test Not detected, Equivocal eahc=7849) INFLUENZA A SUBTYPE H1 (BEAKER) (test Not detected, Equivocal cpzr=6638) INFLUENZA A SUBTYPE H3 (BEAKER) (test Not detected, Equivocal pmiq=1856) INFLUENZA A SUBTYPE H1-2009 (BEAKER) Not detected, Equivocal (test ptmv=3860) INFLUENZA B (BEAKER) (test bbnv=0843) Not detected Not detected, Equivocal RESPIRATORY SYNCYTIAL VIRUS (BEAKER) Not detected Not detected, Equivocal (test amap=7527) PARAINFLUENZA VIRUS 1 (BEAKER) (test Not detected Not detected, Equivocal bapb=1127) PARAINFLUENZA VIRUS 2 (BEAKER) (test Not detected Not detected, Equivocal fldi=4639) PARAINFLUENZA VIRUS 3 (BEAKER) (test Not detected Not detected, Equivocal egih=0418) PARAINFLUENZA VIRUS 4 (BEAKER) (test Not detected Not detected, Equivocal yora=1126) ADENOVIRUS (BEAKER) (test wzks=9482) Not detected Not detected, Equivocal CORONAVIRUS 229E (BEAKER) (test Not detected Not detected, Equivocal fsfy=8848) CORONAVIRUS HKU1 (BEAKER) (test Not detected Not detected, Equivocal norj=6994) CORONAVIRUS NL63 (BEAKER) (test Not detected Not detected, Equivocal gyoe=1454) CORONAVIRUS OC43 (BEAKER) (test Not detected Not detected, Equivocal cbni=6100) BORDETELLA PERTUSSIS (BEAKER) (test Not detected Not detected, Equivocal iaie=5064) CHLAMYDOPHILA PNEUMONIAE (BEAKER) (test Not detected Not detected, Equivocal fhlt=9378) MYCOPLASMA PNEUMONIAE (BEAKER) (test Not detected Not detected, Equivocal wdqe=9345) Other viruses and bacteria not targeted by this PCR panel cannot be excluded; therefore clinical correlation and follow up of serology, culture results, and other molecular studies is required. The results are not intended to be used as the sole means for clinical diagnosis or patient management decisions. This sample was tested at the [facility] using the Apps4Pro Respiratory Panel. It is FDA cleared and has been verified and approved by the [facility] for clinical use on nasopharyngeal swab specimens.The performance of the FilmArrayRP has not been established in individuals who received influenza vaccine. Recent administration ofa nasal influenza vaccine may cause false positive results for Influenza A and/orInfluenza B.RAD, CHEST, 1 VIEW, NON [id number] 13:42: 00Reason for exam:->feverShould this be performed at the bedside?-> YesFINAL REPORT TECHNIQUE: Frontal chest radiograph dated 12/10/2018. CLINICAL HISTORY: Fever COMPARISON STUDY: Chest radiograph dated 09/25/2017 IMPRESSION:Lungs are clear. No pleural effusion or pneumothorax. Cardiomediastinal silhouette is normal in size. No pulmonary edema. No fracture. Signed: Shantanu Ryan MDReport Verified Date/Time: 12/10/2018 13:42:21 Reading Location: [facility] Reading Room [facility] METABOLIC [id number] 07:05:00 Test Item Value Reference Range Comments SODIUM (BEAKER) (test 135 meq/L 136-145 mrby=691) POTASSIUM (BEAKER) (test 3.7 meq/L 3.5-5.1 isxk=109) CHLORIDE (BEAKER) (test 105 meq/L 98-107 lkoh=501) CO2 (BEAKER) (test 23 meq/L 22-29 miqf=481) BLOOD UREA NITROGEN 6 mg/dL 7-21 (BEAKER) (test hmdm=905) CREATININE (BEAKER) (test 0.78 mg/dL 0.57-1.25 gzdm=146) GLUCOSE RANDOM (BEAKER) 97 mg/dL 70-105 (test sgee=052) CALCIUM (BEAKER) (test 8.7 mg/dL 8.4-10.2 boct=176) EGFR (BEAKER) (test 124 mL/min/1.73 sq m ESTIMATED GFR IS NOT pidj=4380) ACCURATE CREATININE CLEARANCE IN PREDICTING GLOMERULAR FILTRATION RATE. ESTIMATED GFR IS NOT APPLICABLE FOR DIALYSIS PATIENTS. CBC W/PLT COUNT & AUTO [id number] 05:42:00 Test Item Value Reference Range Comments WHITE BLOOD CELL COUNT (BEAKER) (test lgkg=144) 13.0 K/ L 3.5-10.5 RED BLOOD CELL COUNT (BEAKER) (test bqaj=316) 3.71 M/ L 4.63-6.08 HEMOGLOBIN (BEAKER) (test tmjm=955) 10.9 GM/DL 13.7-17.5 HEMATOCRIT (BEAKER) (test ieqf=357) 32.1 % 40.1-51.0 MEAN CORPUSCULAR VOLUME (BEAKER) (test uyri=130) 86.5 fL 79.0-92.2 MEAN CORPUSCULAR HEMOGLOBIN (BEAKER) (test 29.4 pg 25.7-32.2 mitk=306) MEAN CORPUSCULAR HEMOGLOBIN CONC (BEAKER) (test 34.0 GM/DL 32.3-36.5 bxyw=812) RED CELL DISTRIBUTION WIDTH (BEAKER) (test 14.4 % 11.6-14.4 jnyo=609) PLATELET COUNT (BEAKER) (test zaje=020) 407 K/CU MM 150-450 MEAN PLATELET VOLUME (BEAKER) (test fayn=064) 9.8 fL 9.4-12.4 NUCLEATED RED BLOOD CELLS (BEAKER) (test 0 /100 WBC 0-0 otrb=425) NEUTROPHILS RELATIVE PERCENT (BEAKER) (test 72 % nuth=868) LYMPHOCYTES RELATIVE PERCENT (BEAKER) (test 17 % infy=637) MONOCYTES RELATIVE PERCENT (BEAKER) (test 9 % zhxt=876) EOSINOPHILS RELATIVE PERCENT (BEAKER) (test 1 % fqcf=219) BASOPHILS RELATIVE PERCENT (BEAKER) (test 0 % iiye=847) NEUTROPHILS ABSOLUTE COUNT (BEAKER) (test 9.35 K/ L 1.78-5.38 vhta=157) LYMPHOCYTES ABSOLUTE COUNT (BEAKER) (test 2.14 K/ L 1.32-3.57 ihfz=202) MONOCYTES ABSOLUTE COUNT (BEAKER) (test 1.22 K/ L 0.30-0.82 vetx=961) EOSINOPHILS ABSOLUTE COUNT (BEAKER) (test 0.15 K/ L 0.04-0.54 fame=204) BASOPHILS ABSOLUTE COUNT (BEAKER) (test 0.04 K/ L 0.01-0.08 jstn=170) IMMATURE GRANULOCYTES-RELATIVE PERCENT (BEAKER) 1 % 0-1 (test rlbw=2423) BASIC METABOLIC [id number] 07:42:00 Test Item Value Reference Range Comments SODIUM (BEAKER) (test 135 meq/L 136-145 shve=854) POTASSIUM (BEAKER) (test 3.9 meq/L 3.5-5.1 rino=954) CHLORIDE (BEAKER) (test 106 meq/L 98-107 tiis=651) CO2 (BEAKER) (test 21 meq/L 22-29 ixww=067) BLOOD UREA NITROGEN 7 mg/dL 7-21 (BEAKER) (test ycoq=940) CREATININE (BEAKER) (test 0.79 mg/dL 0.57-1.25 ztwl=359) GLUCOSE RANDOM (BEAKER) 87 mg/dL 70-105 (test rtdh=766) CALCIUM (BEAKER) (test 8.8 mg/dL 8.4-10.2 fwqm=801) EGFR (BEAKER) (test 122 mL/min/1.73 sq m ESTIMATED GFR IS NOT lbyg=8448) ACCURATE CREATININE CLEARANCE IN PREDICTING GLOMERULAR FILTRATION RATE. ESTIMATED GFR IS NOT APPLICABLE FOR DIALYSIS PATIENTS. CBC W/PLT COUNT & AUTO [id number] 06:35:00 Test Item Value Reference Range Comments WHITE BLOOD CELL COUNT (BEAKER) (test dkqn=871) 11.7 K/ L 3.5-10.5 RED BLOOD CELL COUNT (BEAKER) (test yxfq=163) 3.73 M/ L 4.63-6.08 HEMOGLOBIN (BEAKER) (test pdko=647) 10.9 GM/DL 13.7-17.5 HEMATOCRIT (BEAKER) (test hboo=204) 32.5 % 40.1-51.0 MEAN CORPUSCULAR VOLUME (BEAKER) (test dpjd=745) 87.1 fL 79.0-92.2 MEAN CORPUSCULAR HEMOGLOBIN (BEAKER) (test 29.2 pg 25.7-32.2 pfzc=888) MEAN CORPUSCULAR HEMOGLOBIN CONC (BEAKER) (test 33.5 GM/DL 32.3-36.5 cesy=435) RED CELL DISTRIBUTION WIDTH (BEAKER) (test 14.3 % 11.6-14.4 yaxt=679) PLATELET COUNT (BEAKER) (test dxrv=274) 427 K/CU MM 150-450 MEAN PLATELET VOLUME (BEAKER) (test iidm=456) 10.1 fL 9.4-12.4 NUCLEATED RED BLOOD CELLS (BEAKER) (test 0 /100 WBC 0-0 pcpl=640) NEUTROPHILS RELATIVE PERCENT (BEAKER) (test 70 % hsey=476) LYMPHOCYTES RELATIVE PERCENT (BEAKER) (test 19 % kjcq=581) MONOCYTES RELATIVE PERCENT (BEAKER) (test 9 % pdnp=869) EOSINOPHILS RELATIVE PERCENT (BEAKER) (test 2 % btat=913) BASOPHILS RELATIVE PERCENT (BEAKER) (test 0 % objh=774) NEUTROPHILS ABSOLUTE COUNT (BEAKER) (test 8.19 K/ L 1.78-5.38 detp=390) LYMPHOCYTES ABSOLUTE COUNT (BEAKER) (test 2.25 K/ L 1.32-3.57 vklx=105) MONOCYTES ABSOLUTE COUNT (BEAKER) (test 1.00 K/ L 0.30-0.82 vrjl=691) EOSINOPHILS ABSOLUTE COUNT (BEAKER) (test 0.19 K/ L 0.04-0.54 fzno=046) BASOPHILS ABSOLUTE COUNT (BEAKER) (test 0.03 K/ L 0.01-0.08 ekyn=677) IMMATURE GRANULOCYTES-RELATIVE PERCENT (BEAKER) 1 % 0-1 (test fnnj=6225) HEPATIC FUNCTION [id number] 06:55:00 Test Item Value Reference Range Comments TOTAL PROTEIN (BEAKER) (test ixoa=647) 6.7 gm/dL 6.0-8.3 ALBUMIN (BEAKER) (test cmxa=6805) 3.6 g/dL 3.5-5.0 BILIRUBIN TOTAL (BEAKER) (test cgch=068) 0.7 mg/dL 0.2-1.2 BILIRUBIN DIRECT (BEAKER) (test tlxr=228) 0.6 mg/dL 0.1-0.5 ALKALINE PHOSPHATASE (BEAKER) (test hzep=306) 267 U/L 40-150 AST (SGOT) (BEAKER) (test wuop=944) 595 U/L 5-34 ALT (SGPT) (BEAKER) (test bpmj=285) 658 U/L 6-55 BASIC METABOLIC [id number] 06:55:00 Test Item Value Reference Range Comments SODIUM (BEAKER) (test 136 meq/L 136-145 apsx=707) POTASSIUM (BEAKER) (test 4.0 meq/L 3.5-5.1 kxrx=100) CHLORIDE (BEAKER) (test 107 meq/L 98-107 mtlm=822) CO2 (BEAKER) (test 21 meq/L 22-29 uryo=635) BLOOD UREA NITROGEN 8 mg/dL 7-21 (BEAKER) (test umdn=538) CREATININE (BEAKER) (test 0.75 mg/dL 0.57-1.25 pkfz=823) GLUCOSE RANDOM (BEAKER) 95 mg/dL 70-105 (test vqsn=956) CALCIUM (BEAKER) (test 9.1 mg/dL 8.4-10.2 aokw=631) EGFR (BEAKER) (test 130 mL/min/1.73 sq m ESTIMATED GFR IS NOT muvu=8157) ACCURATE CREATININE CLEARANCE IN PREDICTING GLOMERULAR FILTRATION RATE. ESTIMATED GFR IS NOT APPLICABLE FOR DIALYSIS PATIENTS. [id number] 06:07:00 Test Item Value Reference Range Comments PROTIME (BEAKER) (test emyu=639) 13.2 seconds 11.9-14.2 INR (BEAKER) (test cqdm=432) 1.1 <=5.9 PARTIAL THROMBOPLASTIN TIME (BEAKER) (test 39.2 seconds 22.5-36.0 hjrr=506) Effective 10/21/2018: PT Reference Range ChangeNew: 11.9-14.2 Previous: 11.7- 14.7RECOMMENDED COUMADIN/WARFARIN INR THERAPY RANGESSTANDARD DOSE: 2.0-3.0 Includes: PROPHYLAXIS for venous thrombosis, systemic embolization; TREATMENT for venous thrombosis and/or pulmonary embolus.HIGH RISK: Target INR is2.5-3.5 for patients wiht mechanical heart valves.CBC W/PLT COUNT & AUTO [id number] 05:58:00 Test Item Value Reference Range Comments WHITE BLOOD CELL COUNT (BEAKER) (test ttaz=187) 9.6 K/ L 3.5-10.5 RED BLOOD CELL COUNT (BEAKER) (test ovpq=476) 3.86 M/ L 4.63-6.08 HEMOGLOBIN (BEAKER) (test ajxt=896) 11.1 GM/DL 13.7-17.5 HEMATOCRIT (BEAKER) (test cruj=917) 33.3 % 40.1-51.0 MEAN CORPUSCULAR VOLUME (BEAKER) (test zvyk=777) 86.3 fL 79.0-92.2 MEAN CORPUSCULAR HEMOGLOBIN (BEAKER) (test 28.8 pg 25.7-32.2 lycu=243) MEAN CORPUSCULAR HEMOGLOBIN CONC (BEAKER) (test 33.3 GM/DL 32.3-36.5 klwb=246) RED CELL DISTRIBUTION WIDTH (BEAKER) (test 14.2 % 11.6-14.4 ynig=124) PLATELET COUNT (BEAKER) (test gmvc=890) 414 K/CU MM 150-450 MEAN PLATELET VOLUME (BEAKER) (test ikwg=053) 9.8 fL 9.4-12.4 NUCLEATED RED BLOOD CELLS (BEAKER) (test 0 /100 WBC 0-0 npza=249) NEUTROPHILS RELATIVE PERCENT (BEAKER) (test 69 % ddsm=722) LYMPHOCYTES RELATIVE PERCENT (BEAKER) (test 21 % njdx=646) MONOCYTES RELATIVE PERCENT (BEAKER) (test 7 % xhpl=695) EOSINOPHILS RELATIVE PERCENT (BEAKER) (test 2 % euwu=950) BASOPHILS RELATIVE PERCENT (BEAKER) (test 0 % syla=821) NEUTROPHILS ABSOLUTE COUNT (BEAKER) (test 6.66 K/ L 1.78-5.38 jwcp=724) LYMPHOCYTES ABSOLUTE COUNT (BEAKER) (test 2.00 K/ L 1.32-3.57 anio=055) MONOCYTES ABSOLUTE COUNT (BEAKER) (test 0.71 K/ L 0.30-0.82 bfml=255) EOSINOPHILS ABSOLUTE COUNT (BEAKER) (test 0.20 K/ L 0.04-0.54 osbz=910) BASOPHILS ABSOLUTE COUNT (BEAKER) (test 0.03 K/ L 0.01-0.08 xjyp=148) IMMATURE GRANULOCYTES-RELATIVE PERCENT (BEAKER) 0 % 0-1 (test ndko=8606) CT, CHEST, WITH [id number] 04:21:00FINAL REPORT EXAMINATION: Chest CT with IV [...] Verified Date/Time: 12/08/2018 04:21:30 Reading Location : [address] Reading Room HEPATITIS C PCR, [id number] 21:55: 00 Test Item Value Reference Range Comments HCV RESULT COMPONENT (BEAKER) HCV RNA not detected HCV RNA not detected (test itmr=9778) This test uses a Real-Time Polymerase Chain Reaction (RT-PCR) methodology and was performed using DAVID Ampliprep/DAVID TaqMan HCV test kit version 2.0 ( [employer]).Reportable range for this assay is 15 - 100,000, 000 IU per mL (1.18 - 8.00 Log IU/mL).HEPATIC FUNCTION [id number] 05:54:00 Test Item Value Reference Range Comments TOTAL PROTEIN (BEAKER) (test csyh=488) 6.6 gm/dL 6.0-8.3 ALBUMIN (BEAKER) (test upoc=1342) 3.5 g/dL 3.5-5.0 BILIRUBIN TOTAL (BEAKER) (test qtkc=698) 0.3 mg/dL 0.2-1.2 BILIRUBIN DIRECT (BEAKER) (test gmkw=928) 0.2 mg/dL 0.1-0.5 ALKALINE PHOSPHATASE (BEAKER) (test tvca=667) 174 U/L 40-150 AST (SGOT) (BEAKER) (test mjjc=196) 346 U/L 5-34 ALT (SGPT) (BEAKER) (test adfl=001) 326 U/L 6-55 BASIC METABOLIC [id number] 05:54:00 Test Item Value Reference Range Comments SODIUM (BEAKER) (test 136 meq/L 136-145 izki=142) POTASSIUM (BEAKER) (test 4.4 meq/L 3.5-5.1 sgvs=052) CHLORIDE (BEAKER) (test 108 meq/L 98-107 yhhc=864) CO2 (BEAKER) (test 21 meq/L 22-29 vkag=167) BLOOD UREA NITROGEN 11 mg/dL 7-21 (BEAKER) (test eqjv=910) CREATININE (BEAKER) (test 0.76 mg/dL 0.57-1.25 jfgg=105) GLUCOSE RANDOM (BEAKER) 94 mg/dL 70-105 (test cefd=588) CALCIUM (BEAKER) (test 8.8 mg/dL 8.4-10.2 oxnl=212) EGFR (BEAKER) (test 128 mL/min/1.73 sq m ESTIMATED GFR IS NOT wsjf=6859) ACCURATE CREATININE CLEARANCE IN PREDICTING GLOMERULAR FILTRATION RATE. ESTIMATED GFR IS NOT APPLICABLE FOR DIALYSIS PATIENTS. [id number] 05:33:00 Test Item Value Reference Range Comments PROTIME (BEAKER) (test qorz=177) 14.7 seconds 11.9-14.2 INR (BEAKER) (test vvde=329) 1.2 <=5.9 PARTIAL THROMBOPLASTIN TIME (BEAKER) (test 38.1 seconds 22.5-36.0 icxe=715) Effective 10/21/2018: PT Reference Range ChangeNew: 11.9-14.2 Previous: 11.7- 14.7RECOMMENDED COUMADIN/WARFARIN INR THERAPY RANGESSTANDARD DOSE: 2.0-3.0 Includes: PROPHYLAXIS for venous thrombosis, systemic embolization; TREATMENT for venous thrombosis and/or pulmonary embolus.HIGH RISK: Target INR is2.5-3.5 for patients wiht mechanical heart valves.CBC W/PLT COUNT & AUTO [id number] 05:14:00 Test Item Value Reference Range Comments WHITE BLOOD CELL COUNT (BEAKER) (test qbuu=685) 7.8 K/ L 3.5-10.5 RED BLOOD CELL COUNT (BEAKER) (test zyfy=485) 3.82 M/ L 4.63-6.08 HEMOGLOBIN (BEAKER) (test heed=079) 11.1 GM/DL 13.7-17.5 HEMATOCRIT (BEAKER) (test mkot=002) 33.6 % 40.1-51.0 MEAN CORPUSCULAR VOLUME (BEAKER) (test ppqx=486) 88.0 fL 79.0-92.2 MEAN CORPUSCULAR HEMOGLOBIN (BEAKER) (test 29.1 pg 25.7-32.2 rrqw=354) MEAN CORPUSCULAR HEMOGLOBIN CONC (BEAKER) (test 33.0 GM/DL 32.3-36.5 wyjj=738) RED CELL DISTRIBUTION WIDTH (BEAKER) (test 13.7 % 11.6-14.4 gccr=388) PLATELET COUNT (BEAKER) (test rcqa=947) 399 K/CU MM 150-450 MEAN PLATELET VOLUME (BEAKER) (test ltfm=908) 9.4 fL 9.4-12.4 NUCLEATED RED BLOOD CELLS (BEAKER) (test 0 /100 WBC 0-0 skur=392) NEUTROPHILS RELATIVE PERCENT (BEAKER) (test 62 % fuzl=626) LYMPHOCYTES RELATIVE PERCENT (BEAKER) (test 28 % sfhq=238) MONOCYTES RELATIVE PERCENT (BEAKER) (test 7 % bpck=313) EOSINOPHILS RELATIVE PERCENT (BEAKER) (test 3 % vvby=266) BASOPHILS RELATIVE PERCENT (BEAKER) (test 0 % bkpm=828) NEUTROPHILS ABSOLUTE COUNT (BEAKER) (test 4.87 K/ L 1.78-5.38 pdso=614) LYMPHOCYTES ABSOLUTE COUNT (BEAKER) (test 2.17 K/ L 1.32-3.57 lbsv=587) MONOCYTES ABSOLUTE COUNT (BEAKER) (test 0.57 K/ L 0.30-0.82 rjdr=681) EOSINOPHILS ABSOLUTE COUNT (BEAKER) (test 0.20 K/ L 0.04-0.54 pjno=666) BASOPHILS ABSOLUTE COUNT (BEAKER) (test 0.02 K/ L 0.01-0.08 usyf=230) IMMATURE GRANULOCYTES-RELATIVE PERCENT (BEAKER) 0 % 0-1 (test swio=7773) MR, ABDOMEN, [id number] 10:49:00FINAL REPORT MRI of the abdomen dated [...] MDReport Verified Date/Time: 12/06/2018 10:49:29 Reading Location: [address] Body Reading Room CARCINOEMBRYONIC ANTIGEN (CEA)2018-12-06 07:14:00 Test Item Value Reference Range Comments CARCINOEMBRYONIC ANTIGEN (BEAKER) (test nzyj=166) 0.7 ng/mL 0.0-5.0 HEPATIC FUNCTION [id number] 07:10:00 Test Item Value Reference Range Comments TOTAL PROTEIN (BEAKER) (test qyux=635) 6.6 gm/dL 6.0-8.3 ALBUMIN (BEAKER) (test zyak=6444) 3.5 g/dL 3.5-5.0 BILIRUBIN TOTAL (BEAKER) (test eeev=245) 0.3 mg/dL 0.2-1.2 BILIRUBIN DIRECT (BEAKER) (test yrvj=535) 0.1 mg/dL 0.1-0.5 ALKALINE PHOSPHATASE (BEAKER) (test ewhd=384) 158 U/L 40-150 AST (SGOT) (BEAKER) (test hsmd=453) 249 U/L 5-34 ALT (SGPT) (BEAKER) (test llgi=233) 151 U/L 6-55 BASIC METABOLIC [id number] 07:10:00 Test Item Value Reference Range Comments SODIUM (BEAKER) (test 136 meq/L 136-145 lfsu=370) POTASSIUM (BEAKER) (test 4.0 meq/L 3.5-5.1 twhz=527) CHLORIDE (BEAKER) (test 107 meq/L 98-107 rpzh=912) CO2 (BEAKER) (test 22 meq/L 22-29 qxey=376) BLOOD UREA NITROGEN 10 mg/dL 7-21 (BEAKER) (test tbuy=303) CREATININE (BEAKER) (test 0.74 mg/dL 0.57-1.25 lwmn=480) GLUCOSE RANDOM (BEAKER) 86 mg/dL 70-105 (test durz=029) CALCIUM (BEAKER) (test 8.8 mg/dL 8.4-10.2 wgih=731) EGFR (BEAKER) (test 132 mL/min/1.73 sq m ESTIMATED GFR IS NOT vuyr=8941) ACCURATE CREATININE CLEARANCE IN PREDICTING GLOMERULAR FILTRATION RATE. ESTIMATED GFR IS NOT APPLICABLE FOR DIALYSIS PATIENTS. [id number] 06:27:00 Test Item Value Reference Range Comments PROTIME (BEAKER) (test ephz=759) 14.1 seconds 11.9-14.2 INR (BEAKER) (test lewm=959) 1.2 <=5.9 PARTIAL THROMBOPLASTIN TIME (BEAKER) (test 41.1 seconds 22.5-36.0 acsf=641) Effective 10/21/2018: PT Reference Range ChangeNew: 11.9-14.2 Previous: 11.7- 14.7RECOMMENDED COUMADIN/WARFARIN INR THERAPY RANGESSTANDARD DOSE: 2.0-3.0 Includes: PROPHYLAXIS for venous thrombosis, systemic embolization; TREATMENT for venous thrombosis and/or pulmonary embolus.HIGH RISK: Target INR is2.5-3.5 for patients wiht mechanical heart valves.CBC W/PLT COUNT & AUTO [id number] 06:18:00 Test Item Value Reference Range Comments WHITE BLOOD CELL COUNT (BEAKER) (test fqiy=883) 7.9 K/ L 3.5-10.5 RED BLOOD CELL COUNT (BEAKER) (test rqsf=837) 3.79 M/ L 4.63-6.08 HEMOGLOBIN (BEAKER) (test abvr=265) 11.0 GM/DL 13.7-17.5 HEMATOCRIT (BEAKER) (test mjoq=955) 33.1 % 40.1-51.0 MEAN CORPUSCULAR VOLUME (BEAKER) (test rezw=502) 87.3 fL 79.0-92.2 MEAN CORPUSCULAR HEMOGLOBIN (BEAKER) (test 29.0 pg 25.7-32.2 qwpk=480) MEAN CORPUSCULAR HEMOGLOBIN CONC (BEAKER) (test 33.2 GM/DL 32.3-36.5 hkeo=445) RED CELL DISTRIBUTION WIDTH (BEAKER) (test 13.7 % 11.6-14.4 xcou=135) PLATELET COUNT (BEAKER) (test uuin=156) 422 K/CU MM 150-450 MEAN PLATELET VOLUME (BEAKER) (test pope=308) 9.4 fL 9.4-12.4 NUCLEATED RED BLOOD CELLS (BEAKER) (test 0 /100 WBC 0-0 pvww=505) NEUTROPHILS RELATIVE PERCENT (BEAKER) (test 58 % nxzi=187) LYMPHOCYTES RELATIVE PERCENT (BEAKER) (test 33 % ffxf=294) MONOCYTES RELATIVE PERCENT (BEAKER) (test 7 % mzou=065) EOSINOPHILS RELATIVE PERCENT (BEAKER) (test 2 % dnnh=180) BASOPHILS RELATIVE PERCENT (BEAKER) (test 0 % lxvq=203) NEUTROPHILS ABSOLUTE COUNT (BEAKER) (test 4.55 K/ L 1.78-5.38 zwqd=444) LYMPHOCYTES ABSOLUTE COUNT (BEAKER) (test 2.59 K/ L 1.32-3.57 zcmi=185) MONOCYTES ABSOLUTE COUNT (BEAKER) (test 0.55 K/ L 0.30-0.82 anpm=665) EOSINOPHILS ABSOLUTE COUNT (BEAKER) (test 0.15 K/ L 0.04-0.54 jedf=966) BASOPHILS ABSOLUTE COUNT (BEAKER) (test 0.02 K/ L 0.01-0.08 wsxb=174) IMMATURE GRANULOCYTES-RELATIVE PERCENT (BEAKER) 0 % 0-1 (test bqqr=9331) HEPATITIS PANEL, [id number] 07:04:00 Test Item Value Reference Range Comments HEPATITIS A IGM ANTIBODY (BEAKER) (test Nonreactive Nonreactive rebu=147) HEPATITIS B CORE IGM ANTIBODY (BEAKER) (test Nonreactive Nonreactive hziv=119) HEPATITIS C ANTIBODY (BEAKER) (test rlrr=272) Reactive Nonreactive HEPATITIS B SURFACE ANTIGEN (2) (BEAKER) (test Nonreactive Nonreactive mmja=7340) [id number] 06:52:00 Test Item Value Reference Range Comments MAGNESIUM (BEAKER) (test aude=292) 2.1 mg/dL 1.6-2.6 COMPREHENSIVE METABOLIC [id number] 06:52:00 Test Item Value Reference Range Comments TOTAL PROTEIN (BEAKER) 7.2 gm/dL 6.0-8.3 (test xvab=493) ALBUMIN (BEAKER) (test 3.8 g/dL 3.5-5.0 dxuz=3520) ALKALINE PHOSPHATASE 148 U/L 40-150 (BEAKER) (test phiw=155) BILIRUBIN TOTAL (BEAKER) 0.3 mg/dL 0.2-1.2 (test uqdp=809) SODIUM (BEAKER) (test 131 meq/L 136-145 qklo=317) POTASSIUM (BEAKER) (test 4.0 meq/L 3.5-5.1 emte=038) CHLORIDE (BEAKER) (test 100 meq/L 98-107 wvor=375) CO2 (BEAKER) (test 24 meq/L 22-29 gqor=532) BLOOD UREA NITROGEN 12 mg/dL 7-21 (BEAKER) (test bvjj=925) CREATININE (BEAKER) (test 0.91 mg/dL 0.57-1.25 fnxp=041) GLUCOSE RANDOM (BEAKER) 98 mg/dL 70-105 (test lnmw=144) CALCIUM (BEAKER) (test 8.9 mg/dL 8.4-10.2 ixhz=768) AST (SGOT) (BEAKER) (test 135 U/L 5-34 amgb=845) ALT (SGPT) (BEAKER) (test 81 U/L 6-55 gbgn=231) EGFR (BEAKER) (test 104 mL/min/1.73 sq ESTIMATED GFR IS NOT fvrh=2787) m ACCURATE CREATININE CLEARANCE IN PREDICTING GLOMERULAR FILTRATION RATE. ESTIMATED GFR IS NOT APPLICABLE FOR DIALYSIS PATIENTS. [id number] 05:58:00 Test Item Value Reference Range Comments PROTIME (BEAKER) (test vuna=968) 13.9 seconds 11.9-14.2 INR (BEAKER) (test tflv=362) 1.1 <=5.9 PARTIAL THROMBOPLASTIN TIME (BEAKER) (test 37.6 seconds 22.5-36.0 kuno=614) Effective 10/21/2018: PT Reference Range ChangeNew: 11.9-14.2 Previous: 11.7- 14.7RECOMMENDED COUMADIN/WARFARIN INR THERAPY RANGESSTANDARD DOSE: 2.0-3.0 Includes: PROPHYLAXIS for venous thrombosis, systemic embolization; TREATMENT for venous thrombosis and/or pulmonary embolus.HIGH RISK: Target INR is2.5-3.5 for patients wiht mechanical heart valves.CBC W/PLT COUNT & AUTO [id number] 05:35:00 Test Item Value Reference Range Comments WHITE BLOOD CELL COUNT (BEAKER) (test lwpo=080) 9.1 K/ L 3.5-10.5 RED BLOOD CELL COUNT (BEAKER) (test dmgc=704) 4.18 M/ L 4.63-6.08 HEMOGLOBIN (BEAKER) (test vgxj=097) 12.0 GM/DL 13.7-17.5 HEMATOCRIT (BEAKER) (test pjww=507) 36.0 % 40.1-51.0 MEAN CORPUSCULAR VOLUME (BEAKER) (test qxtn=402) 86.1 fL 79.0-92.2 MEAN CORPUSCULAR HEMOGLOBIN (BEAKER) (test 28.7 pg 25.7-32.2 wvij=031) MEAN CORPUSCULAR HEMOGLOBIN CONC (BEAKER) (test 33.3 GM/DL 32.3-36.5 ejdo=701) RED CELL DISTRIBUTION WIDTH (BEAKER) (test 13.4 % 11.6-14.4 wfvu=186) PLATELET COUNT (BEAKER) (test bkje=069) 477 K/CU MM 150-450 MEAN PLATELET VOLUME (BEAKER) (test zfev=563) 9.2 fL 9.4-12.4 NUCLEATED RED BLOOD CELLS (BEAKER) (test 0 /100 WBC 0-0 lnlf=503) NEUTROPHILS RELATIVE PERCENT (BEAKER) (test 58 % utux=445) LYMPHOCYTES RELATIVE PERCENT (BEAKER) (test 33 % edid=039) MONOCYTES RELATIVE PERCENT (BEAKER) (test 7 % lujg=394) EOSINOPHILS RELATIVE PERCENT (BEAKER) (test 2 % uqqu=387) BASOPHILS RELATIVE PERCENT (BEAKER) (test 0 % gwiz=841) NEUTROPHILS ABSOLUTE COUNT (BEAKER) (test 5.24 K/ L 1.78-5.38 tzir=356) LYMPHOCYTES ABSOLUTE COUNT (BEAKER) (test 2.94 K/ L 1.32-3.57 xdrs=625) MONOCYTES ABSOLUTE COUNT (BEAKER) (test 0.66 K/ L 0.30-0.82 aswa=314) EOSINOPHILS ABSOLUTE COUNT (BEAKER) (test 0.16 K/ L 0.04-0.54 uyiz=351) BASOPHILS ABSOLUTE COUNT (BEAKER) (test 0.03 K/ L 0.01-0.08 ptcn=020) IMMATURE GRANULOCYTES-RELATIVE PERCENT (BEAKER) 0 % 0-1 (test hbip=9820) ALPHA FETOPROTEIN (AFP), TUMOR [id number] 02:51:00 Test Item Value Reference Range Comments ALPHA-FETOPROTEIN (BEAKER) (test vgot=6731) > ng/mL <10.0 BLOOD [id number] 18:00:00 Test Item Value Reference Range Comments CULTURE (BEAKER) (test jkpi=2101) No growth in 5 days BLOOD [id number] 18:00:00 Test Item Value Reference Range Comments CULTURE (BEAKER) (test ubvz=5992) No growth in 5 days BLOOD [id number] 00:00:00 Test Item Value Reference Range Comments CULTURE (BEAKER) (test rwxy=3467) No growth in 5 days BASIC METABOLIC [id number] 05:57:00 Test Item Value Reference Range Comments SODIUM (BEAKER) (test 139 meq/L 136-145 cbzy=150) POTASSIUM (BEAKER) (test 3.5 meq/L 3.5-5.1 yavq=286) CHLORIDE (BEAKER) (test 105 meq/L 98-107 svzc=654) CO2 (BEAKER) (test 25 meq/L 22-29 szcs=700) BLOOD UREA NITROGEN 8 mg/dL 7-21 (BEAKER) (test ijth=224) CREATININE (BEAKER) (test 0.78 mg/dL 0.57-1.25 peqc=638) GLUCOSE RANDOM (BEAKER) 119 mg/dL 70-105 (test nppp=968) CALCIUM (BEAKER) (test 8.9 mg/dL 8.4-10.2 yqvj=798) EGFR (BEAKER) (test 124 mL/min/1.73 sq m ESTIMATED GFR IS NOT fcep=3450) ACCURATE CREATININE CLEARANCE IN PREDICTING GLOMERULAR FILTRATION RATE. ESTIMATED GFR IS NOT APPLICABLE FOR DIALYSIS PATIENTS. CBC W/PLT COUNT & AUTO [id number] 05:11:00 Test Item Value Reference Range Comments WHITE BLOOD CELL COUNT (BEAKER) (test pxnv=605) 10.2 K/ L 3.5-10.5 RED BLOOD CELL COUNT (BEAKER) (test ltpd=664) 3.90 M/ L 4.63-6.08 HEMOGLOBIN (BEAKER) (test dyfi=887) 12.0 GM/DL 13.7-17.5 HEMATOCRIT (BEAKER) (test muyl=257) 35.3 % 40.1-51.0 MEAN CORPUSCULAR VOLUME (BEAKER) (test rzdg=932) 90.5 fL 79.0-92.2 MEAN CORPUSCULAR HEMOGLOBIN (BEAKER) (test 30.8 pg 25.7-32.2 hwva=369) MEAN CORPUSCULAR HEMOGLOBIN CONC (BEAKER) (test 34.0 GM/DL 32.3-36.5 wkfi=893) RED CELL DISTRIBUTION WIDTH (BEAKER) (test 13.3 % 11.6-14.4 ymel=196) PLATELET COUNT (BEAKER) (test qldz=290) 233 K/CU MM 150-450 MEAN PLATELET VOLUME (BEAKER) (test zipz=638) 10.9 fL 9.4-12.4 NUCLEATED RED BLOOD CELLS (BEAKER) (test 0 /100 WBC 0-0 fcsv=967) NEUTROPHILS RELATIVE PERCENT (BEAKER) (test 58 % npnq=003) LYMPHOCYTES RELATIVE PERCENT (BEAKER) (test 25 % oyat=268) MONOCYTES RELATIVE PERCENT (BEAKER) (test 11 % cgdx=763) EOSINOPHILS RELATIVE PERCENT (BEAKER) (test 5 % spsc=754) BASOPHILS RELATIVE PERCENT (BEAKER) (test 1 % dpib=440) NEUTROPHILS ABSOLUTE COUNT (BEAKER) (test 5.92 K/ L 1.78-5.38 vvmy=378) LYMPHOCYTES ABSOLUTE COUNT (BEAKER) (test 2.51 K/ L 1.32-3.57 obqf=574) MONOCYTES ABSOLUTE COUNT (BEAKER) (test 1.12 K/ L 0.30-0.82 pmub=493) EOSINOPHILS ABSOLUTE COUNT (BEAKER) (test 0.50 K/ L 0.04-0.54 zqcq=435) BASOPHILS ABSOLUTE COUNT (BEAKER) (test 0.06 K/ L 0.01-0.08 wvha=558) IMMATURE GRANULOCYTES-RELATIVE PERCENT (BEAKER) 0 % 0-1 (test viqb=8527) [id number] 07:07:00 Test Item Value Reference Range Comments PARTIAL THROMBOPLASTIN TIME (BEAKER) (test 107.0 seconds 22.5-36.0 aega=817) [id number] 06:15:00 Test Item Value Reference Range Comments PARTIAL THROMBOPLASTIN TIME (BEAKER) (test 117.6 seconds 22.5-36.0 rnie=646) [id number] 05:49:00 Test Item Value Reference Range Comments PARTIAL THROMBOPLASTIN TIME (BEAKER) (test 96.1 seconds 22.5-36.0 eenr=286) BASIC METABOLIC [id number] 05:21:00 Test Item Value Reference Range Comments SODIUM (BEAKER) (test 137 meq/L 136-145 vehn=425) POTASSIUM (BEAKER) (test 3.8 meq/L 3.5-5.1 sbsf=476) CHLORIDE (BEAKER) (test 104 meq/L 98-107 wcdc=961) CO2 (BEAKER) (test 24 meq/L 22-29 yiij=786) BLOOD UREA NITROGEN 9 mg/dL 7-21 (BEAKER) (test qvar=070) CREATININE (BEAKER) (test 0.80 mg/dL 0.57-1.25 zyei=052) GLUCOSE RANDOM (BEAKER) 93 mg/dL 70-105 (test phmo=791) CALCIUM (BEAKER) (test 8.7 mg/dL 8.4-10.2 avyh=344) EGFR (BEAKER) (test 121 mL/min/1.73 sq m ESTIMATED GFR IS NOT qoll=2112) ACCURATE CREATININE CLEARANCE IN PREDICTING GLOMERULAR FILTRATION RATE. ESTIMATED GFR IS NOT APPLICABLE FOR DIALYSIS PATIENTS. CBC W/PLT COUNT & AUTO [id number] 04:58:00 Test Item Value Reference Range Comments WHITE BLOOD CELL COUNT (BEAKER) (test scad=840) 11.2 K/ L 3.5-10.5 RED BLOOD CELL COUNT (BEAKER) (test nwka=218) 3.92 M/ L 4.63-6.08 HEMOGLOBIN (BEAKER) (test puul=556) 12.0 GM/DL 13.7-17.5 HEMATOCRIT (BEAKER) (test iwkd=929) 35.0 % 40.1-51.0 MEAN CORPUSCULAR VOLUME (BEAKER) (test nezl=590) 89.3 fL 79.0-92.2 MEAN CORPUSCULAR HEMOGLOBIN (BEAKER) (test 30.6 pg 25.7-32.2 cglg=790) MEAN CORPUSCULAR HEMOGLOBIN CONC (BEAKER) (test 34.3 GM/DL 32.3-36.5 yaxf=729) RED CELL DISTRIBUTION WIDTH (BEAKER) (test 13.3 % 11.6-14.4 sjtw=425) PLATELET COUNT (BEAKER) (test wjdl=000) 222 K/CU MM 150-450 MEAN PLATELET VOLUME (BEAKER) (test jufp=720) 10.6 fL 9.4-12.4 NUCLEATED RED BLOOD CELLS (BEAKER) (test 0 /100 WBC 0-0 wcer=498) NEUTROPHILS RELATIVE PERCENT (BEAKER) (test 53 % texk=991) LYMPHOCYTES RELATIVE PERCENT (BEAKER) (test 32 % oaoc=000) MONOCYTES RELATIVE PERCENT (BEAKER) (test 11 % haad=253) EOSINOPHILS RELATIVE PERCENT (BEAKER) (test 4 % updb=807) BASOPHILS RELATIVE PERCENT (BEAKER) (test 0 % wabb=599) NEUTROPHILS ABSOLUTE COUNT (BEAKER) (test 6.00 K/ L 1.78-5.38 rfjg=102) LYMPHOCYTES ABSOLUTE COUNT (BEAKER) (test 3.57 K/ L 1.32-3.57 zjcp=676) MONOCYTES ABSOLUTE COUNT (BEAKER) (test 1.20 K/ L 0.30-0.82 ctsw=660) EOSINOPHILS ABSOLUTE COUNT (BEAKER) (test 0.40 K/ L 0.04-0.54 lyfc=199) BASOPHILS ABSOLUTE COUNT (BEAKER) (test 0.03 K/ L 0.01-0.08 kuor=462) IMMATURE GRANULOCYTES-RELATIVE PERCENT (BEAKER) 0 % 0-1 (test gcpx=1004) [id number] 21:35:00 Test Item Value Reference Range Comments PARTIAL THROMBOPLASTIN TIME (BEAKER) (test 89.5 seconds 22.5-36.0 canu=066) [id number] 15:44:00 Test Item Value Reference Range Comments PARTIAL THROMBOPLASTIN TIME (BEAKER) (test 85.8 seconds 22.5-36.0 ldpy=698) [id number] 09:50:00 Test Item Value Reference Range Comments PARTIAL THROMBOPLASTIN TIME (BEAKER) (test 53.6 seconds 22.5-36.0 gtge=152) BASIC METABOLIC [id number] 06:24:00 Test Item Value Reference Range Comments SODIUM (BEAKER) (test 137 meq/L 136-145 cojm=883) POTASSIUM (BEAKER) (test 3.8 meq/L 3.5-5.1 rbmf=931) CHLORIDE (BEAKER) (test 105 meq/L 98-107 lkmu=051) CO2 (BEAKER) (test 24 meq/L 22-29 yvog=161) BLOOD UREA NITROGEN 11 mg/dL 7-21 (BEAKER) (test ixyd=016) CREATININE (BEAKER) (test 0.76 mg/dL 0.57-1.25 unbf=852) GLUCOSE RANDOM (BEAKER) 94 mg/dL 70-105 (test huvt=958) CALCIUM (BEAKER) (test 8.5 mg/dL 8.4-10.2 hpdz=913) EGFR (BEAKER) (test 128 mL/min/1.73 sq m ESTIMATED GFR IS NOT oskb=4318) ACCURATE CREATININE CLEARANCE IN PREDICTING GLOMERULAR FILTRATION RATE. ESTIMATED GFR IS NOT APPLICABLE FOR DIALYSIS PATIENTS. CBC W/PLT COUNT & AUTO [id number] 06:22:00 Test Item Value Reference Range Comments WHITE BLOOD CELL COUNT (BEAKER) (test rdwt=510) 12.3 K/ L 3.5-10.5 RED BLOOD CELL COUNT (BEAKER) (test dpub=548) 4.01 M/ L 4.63-6.08 HEMOGLOBIN (BEAKER) (test zmzk=226) 12.1 GM/DL 13.7-17.5 HEMATOCRIT (BEAKER) (test bnrh=192) 36.4 % 40.1-51.0 MEAN CORPUSCULAR VOLUME (BEAKER) (test hrck=100) 90.8 fL 79.0-92.2 MEAN CORPUSCULAR HEMOGLOBIN (BEAKER) (test 30.2 pg 25.7-32.2 nucs=344) MEAN CORPUSCULAR HEMOGLOBIN CONC (BEAKER) (test 33.2 GM/DL 32.3-36.5 arwi=410) RED CELL DISTRIBUTION WIDTH (BEAKER) (test 13.4 % 11.6-14.4 uuda=579) PLATELET COUNT (BEAKER) (test vsdq=738) 233 K/CU MM 150-450 MEAN PLATELET VOLUME (BEAKER) (test nuhg=805) 10.7 fL 9.4-12.4 NUCLEATED RED BLOOD CELLS (BEAKER) (test 0 /100 WBC 0-0 yiwi=187) NEUTROPHILS RELATIVE PERCENT (BEAKER) (test 70 % dgjb=768) LYMPHOCYTES RELATIVE PERCENT (BEAKER) (test 21 % gzmt=667) MONOCYTES RELATIVE PERCENT (BEAKER) (test 7 % zsyd=114) EOSINOPHILS RELATIVE PERCENT (BEAKER) (test 2 % fcgm=219) BASOPHILS RELATIVE PERCENT (BEAKER) (test 0 % glqj=064) NEUTROPHILS ABSOLUTE COUNT (BEAKER) (test 8.59 K/ L 1.78-5.38 ukwy=052) LYMPHOCYTES ABSOLUTE COUNT (BEAKER) (test 2.52 K/ L 1.32-3.57 rnxe=736) MONOCYTES ABSOLUTE COUNT (BEAKER) (test 0.86 K/ L 0.30-0.82 odtb=232) EOSINOPHILS ABSOLUTE COUNT (BEAKER) (test 0.23 K/ L 0.04-0.54 ovnz=588) BASOPHILS ABSOLUTE COUNT (BEAKER) (test 0.03 K/ L 0.01-0.08 mtux=113) IMMATURE GRANULOCYTES-RELATIVE PERCENT (JOSELYN) 0 % 0-1 (test jnpz=6135) [id number] 17:27:00 Test Item Value Reference Range Comments ACTIVATED CLOTTING TIME 269 sec TESTED AT [facility] [address] (JSOELYN) (test hldh=610) [facility] [address] CT, CTA AAA, W/ [place].EXT.[id number] 15:50:00Please page me when done. Need stat cta for surgery. Thanks.Addendum BeginsREPORT STATUS:A Addendum: I reviewed the nonvascular features of this examination and concur with Dr. Restrepo's report. Signed: Juan Esparza MDReport Verified Date/ Time: 03/04/2018 15:50:09 Reading Location: [place] [address] Angio Body Reading RoomAddendum EndsFINAL REPORT CT [...] dynamic data set. In the right, the [place] right SFA is occluded. The right profunda [...] femoral bypass graft is identified. 3. The [place] left SFA is occluded. The right SFA [...] dictated regarding the non-vascular findings by the [employer] Radiologist. Signed: Shawn Restrepo MDReport Verified Date/Time: 03/04/2018 07:12:51 Reading Location: [place] [id number] MRI [id number] 10:51:00 Test Item Value Reference Range Comments PARTIAL THROMBOPLASTIN TIME (BEAKER) (test 66.0 seconds 22.5-36.0 ahqx=908) BASIC METABOLIC [id number] 02:33:00 Test Item Value Reference Range Comments SODIUM (BEAKER) (test 137 meq/L 136-145 ofqa=962) POTASSIUM (BEAKER) (test 3.8 meq/L 3.5-5.1 seeq=724) CHLORIDE (BEAKER) (test 106 meq/L 98-107 fnxr=380) CO2 (BEAKER) (test 21 meq/L 22-29 kgym=966) BLOOD UREA NITROGEN 7 mg/dL 7-21 (BEAKER) (test nkvp=317) CREATININE (BEAKER) (test 0.77 mg/dL 0.57-1.25 mesc=396) GLUCOSE RANDOM (BEAKER) 96 mg/dL 70-105 (test vatp=460) CALCIUM (BEAKER) (test 9.1 mg/dL 8.4-10.2 jtix=369) EGFR (BEAKER) (test 126 mL/min/1.73 sq m ESTIMATED GFR IS NOT vdvi=3422) ACCURATE CREATININE CLEARANCE IN PREDICTING GLOMERULAR FILTRATION RATE. ESTIMATED GFR IS NOT APPLICABLE FOR DIALYSIS PATIENTS. [id number] 02:28:00 Test Item Value Reference Range Comments PARTIAL THROMBOPLASTIN TIME (BEAKER) (test 44.6 seconds 22.5-36.0 ufzf=089) CBC W/PLT COUNT & AUTO [id number] 02:20:00 Test Item Value Reference Range Comments WHITE BLOOD CELL COUNT (BEAKER) (test lnty=625) 10.5 K/ L 3.5-10.5 RED BLOOD CELL COUNT (BEAKER) (test btuw=284) 4.55 M/ L 4.63-6.08 HEMOGLOBIN (BEAKER) (test ilxr=289) 14.0 GM/DL 13.7-17.5 HEMATOCRIT (BEAKER) (test cyht=564) 40.5 % 40.1-51.0 MEAN CORPUSCULAR VOLUME (BEAKER) (test eeiv=662) 89.0 fL 79.0-92.2 MEAN CORPUSCULAR HEMOGLOBIN (BEAKER) (test 30.8 pg 25.7-32.2 supj=621) MEAN CORPUSCULAR HEMOGLOBIN CONC (BEAKER) (test 34.6 GM/DL 32.3-36.5 evjz=992) RED CELL DISTRIBUTION WIDTH (BEAKER) (test 13.3 % 11.6-14.4 fcou=314) PLATELET COUNT (BEAKER) (test clac=267) 262 K/CU MM 150-450 MEAN PLATELET VOLUME (BEAKER) (test tjiz=762) 10.1 fL 9.4-12.4 NUCLEATED RED BLOOD CELLS (BEAKER) (test 0 /100 WBC 0-0 hswh=420) NEUTROPHILS RELATIVE PERCENT (BEAKER) (test 57 % yvaf=084) LYMPHOCYTES RELATIVE PERCENT (BEAKER) (test 32 % ezyq=598) MONOCYTES RELATIVE PERCENT (BEAKER) (test 7 % ycjk=669) EOSINOPHILS RELATIVE PERCENT (BEAKER) (test 3 % atio=151) BASOPHILS RELATIVE PERCENT (BEAKER) (test 1 % amgu=737) NEUTROPHILS ABSOLUTE COUNT (BEAKER) (test 6.00 K/ L 1.78-5.38 mifz=986) LYMPHOCYTES ABSOLUTE COUNT (BEAKER) (test 3.38 K/ L 1.32-3.57 xryh=746) MONOCYTES ABSOLUTE COUNT (BEAKER) (test 0.74 K/ L 0.30-0.82 rfig=335) EOSINOPHILS ABSOLUTE COUNT (BEAKER) (test 0.34 K/ L 0.04-0.54 aerh=671) BASOPHILS ABSOLUTE COUNT (BEAKER) (test 0.05 K/ L 0.01-0.08 djdj=892) IMMATURE GRANULOCYTES-RELATIVE PERCENT (BEAKER) 0 % 0-1 (test ctvq=7139) [id number] 23:51:00 Test Item Value Reference Range Comments PARTIAL THROMBOPLASTIN TIME (BEAKER) (test > seconds 22.5-36.0 prmy=124) [id number] 15:27:00 Test Item Value Reference Range Comments PARTIAL THROMBOPLASTIN TIME (BEAKER) (test 56.5 seconds 22.5-36.0 xjcz=245) RAD, FOOT, MIN 3 VIEWS, [id number] 08:43:00Reason for exam:->Foot ulcer - r/o osteoFINAL [...] MDReport Verified Date/Time: 03/03/2018 08:43:54 Reading Location: [facility] Radiology Reading Room [id number] 08:24:00 Test Item Value Reference Range Comments PARTIAL THROMBOPLASTIN TIME (BEAKER) (test 67.3 seconds 22.5-36.0 jrvw=264) [id number] 06:15:00 Test Item Value Reference Range Comments PARTIAL THROMBOPLASTIN TIME (BEAKER) (test 180.5 seconds 22.5-36.0 dyfv=693) Prior to initiating heparinBASIC METABOLIC [id number] 04:42:00 Test Item Value Reference Range Comments SODIUM (BEAKER) (test 139 meq/L 136-145 fkua=260) POTASSIUM (BEAKER) (test 3.6 meq/L 3.5-5.1 ycxl=672) CHLORIDE (BEAKER) (test 108 meq/L 98-107 htmg=717) CO2 (BEAKER) (test 25 meq/L 22-29 khgb=622) BLOOD UREA NITROGEN 8 mg/dL 7-21 (BEAKER) (test amrt=253) CREATININE (BEAKER) (test 0.77 mg/dL 0.57-1.25 vdyr=448) GLUCOSE RANDOM (BEAKER) 95 mg/dL 70-105 (test txpm=806) CALCIUM (BEAKER) (test 8.7 mg/dL 8.4-10.2 wxgp=927) EGFR (BEAKER) (test 126 mL/min/1.73 sq m ESTIMATED GFR IS NOT noqh=5285) ACCURATE CREATININE CLEARANCE IN PREDICTING GLOMERULAR FILTRATION RATE. ESTIMATED GFR IS NOT APPLICABLE FOR DIALYSIS PATIENTS. CBC W/PLT COUNT & AUTO [id number] 04:31:00 Test Item Value Reference Range Comments WHITE BLOOD CELL COUNT (BEAKER) (test hzrs=349) 9.4 K/ L 3.5-10.5 RED BLOOD CELL COUNT (BEAKER) (test svmb=475) 4.41 M/ L 4.63-6.08 HEMOGLOBIN (BEAKER) (test fauf=892) 13.4 GM/DL 13.7-17.5 HEMATOCRIT (BEAKER) (test qahz=611) 39.5 % 40.1-51.0 MEAN CORPUSCULAR VOLUME (BEAKER) (test hivc=535) 89.6 fL 79.0-92.2 MEAN CORPUSCULAR HEMOGLOBIN (BEAKER) (test 30.4 pg 25.7-32.2 hxxq=961) MEAN CORPUSCULAR HEMOGLOBIN CONC (BEAKER) (test 33.9 GM/DL 32.3-36.5 uoin=101) RED CELL DISTRIBUTION WIDTH (BEAKER) (test 13.4 % 11.6-14.4 psxi=824) PLATELET COUNT (BEAKER) (test ysfj=749) 241 K/CU MM 150-450 MEAN PLATELET VOLUME (BEAKER) (test vmhm=869) 10.2 fL 9.4-12.4 NUCLEATED RED BLOOD CELLS (BEAKER) (test 0 /100 WBC 0-0 jhfh=082) NEUTROPHILS RELATIVE PERCENT (BEAKER) (test 51 % yxit=440) LYMPHOCYTES RELATIVE PERCENT (BEAKER) (test 38 % rxlr=384) MONOCYTES RELATIVE PERCENT (BEAKER) (test 7 % ovus=929) EOSINOPHILS RELATIVE PERCENT (BEAKER) (test 4 % twiu=712) BASOPHILS RELATIVE PERCENT (BEAKER) (test 0 % hugi=690) NEUTROPHILS ABSOLUTE COUNT (BEAKER) (test 4.77 K/ L 1.78-5.38 khmi=900) LYMPHOCYTES ABSOLUTE COUNT (BEAKER) (test 3.51 K/ L 1.32-3.57 jhnm=191) MONOCYTES ABSOLUTE COUNT (BEAKER) (test 0.67 K/ L 0.30-0.82 ntze=071) EOSINOPHILS ABSOLUTE COUNT (BEAKER) (test 0.37 K/ L 0.04-0.54 ofdq=957) BASOPHILS ABSOLUTE COUNT (BEAKER) (test 0.03 K/ L 0.01-0.08 dxdf=455) IMMATURE GRANULOCYTES-RELATIVE PERCENT (BEAKER) 0 % 0-1 (test ebmo=3520) [id number] 22:31:00 Test Item Value Reference Range Comments PARTIAL THROMBOPLASTIN TIME (BEAKER) (test 31.2 seconds 22.5-36.0 mgrb=055) Prior to initiating heparinBASIC METABOLIC [id number] 18:30:00 Test Item Value Reference Range Comments SODIUM (BEAKER) (test 139 meq/L 136-145 nqum=987) POTASSIUM (BEAKER) (test 3.6 meq/L 3.5-5.1 socu=560) CHLORIDE (BEAKER) (test 106 meq/L 98-107 iijx=069) CO2 (BEAKER) (test 21 meq/L 22-29 vnww=011) BLOOD UREA NITROGEN 8 mg/dL 7-21 (BEAKER) (test nvvj=957) CREATININE (BEAKER) (test 0.83 mg/dL 0.57-1.25 yndq=106) GLUCOSE RANDOM (BEAKER) 110 mg/dL 70-105 (test oftz=586) CALCIUM (BEAKER) (test 9.7 mg/dL 8.4-10.2 zsjb=191) EGFR (BEAKER) (test 116 mL/min/1.73 sq m ESTIMATED GFR IS NOT weso=2914) ACCURATE CREATININE CLEARANCE IN PREDICTING GLOMERULAR FILTRATION RATE. ESTIMATED GFR IS NOT APPLICABLE FOR DIALYSIS PATIENTS. C-REACTIVE [id number] 18:30:00 Test Item Value Reference Range Comments C-REACTIVE PROTEIN (BEAKER) (test itih=772) 0.04 mg/dL 0.00-0.50 CBC W/PLT COUNT & AUTO [id number] 18:13:00 Test Item Value Reference Range Comments WHITE BLOOD CELL COUNT (BEAKER) (test zfut=171) 10.2 K/ L 3.5-10.5 RED BLOOD CELL COUNT (BEAKER) (test qzpm=488) 4.65 M/ L 4.63-6.08 HEMOGLOBIN (BEAKER) (test krzy=215) 14.3 GM/DL 13.7-17.5 HEMATOCRIT (BEAKER) (test crfn=304) 40.7 % 40.1-51.0 MEAN CORPUSCULAR VOLUME (BEAKER) (test ffhg=233) 87.5 fL 79.0-92.2 MEAN CORPUSCULAR HEMOGLOBIN (BEAKER) (test 30.8 pg 25.7-32.2 uyif=782) MEAN CORPUSCULAR HEMOGLOBIN CONC (BEAKER) (test 35.1 GM/DL 32.3-36.5 prcy=458) RED CELL DISTRIBUTION WIDTH (BEAKER) (test 13.3 % 11.6-14.4 teql=604) PLATELET COUNT (BEAKER) (test ejjq=152) 238 K/CU MM 150-450 MEAN PLATELET VOLUME (BEAKER) (test tcll=282) 10.1 fL 9.4-12.4 NUCLEATED RED BLOOD CELLS (BEAKER) (test 0 /100 WBC 0-0 vkwg=884) NEUTROPHILS RELATIVE PERCENT (BEAKER) (test 64 % ltoj=310) LYMPHOCYTES RELATIVE PERCENT (BEAKER) (test 26 % accv=234) MONOCYTES RELATIVE PERCENT (BEAKER) (test 7 % vqhp=684) EOSINOPHILS RELATIVE PERCENT (BEAKER) (test 2 % kzck=036) BASOPHILS RELATIVE PERCENT (BEAKER) (test 0 % apyd=939) NEUTROPHILS ABSOLUTE COUNT (BEAKER) (test 6.54 K/ L 1.78-5.38 bwuh=503) LYMPHOCYTES ABSOLUTE COUNT (BEAKER) (test 2.64 K/ L 1.32-3.57 ywwl=294) MONOCYTES ABSOLUTE COUNT (BEAKER) (test 0.71 K/ L 0.30-0.82 utcz=165) EOSINOPHILS ABSOLUTE COUNT (BEAKER) (test 0.21 K/ L 0.04-0.54 swmb=238) BASOPHILS ABSOLUTE COUNT (BEAKER) (test 0.04 K/ L 0.01-0.08 izos=428) IMMATURE GRANULOCYTES-RELATIVE PERCENT (BEAKER) 0 % 0-1 (test zkzb=6268) TISSUE [id number] 14:18:00Surgical Pathology Report Case: [id number] Authorizing Provider: Greta Urban MD Collected: 09/25/2017 1609 Ordering Location: [facility] Received: 09/26/2017 0819 PERIOPERATIVE SERVICES Pathologist: Dejan Martin MD Specimens: A) - Plaque, LEFT FEMORAL PLAQUE B) -Plaque, RIGHT FEMORAL PLAQUE A. ARTERY, LEFT FEMORAL, ENDARTERECTOMY:CALCIFIC ATHEROSCLEROTIC PLAQUEB. ARTERY, RIGHT FEMORAL, ENDARTERECTOMY:CALCIFIC ATHEROSCLEROTIC PLAQUE WITH ATTACHED FIBRIN THROMBUS Signing Pathologist Direct Phone Line: [phone] signed by Dejan Martin MD on 09/30/2017 at 2:18 [id number]; [id number]. Left femoral plaque. B. Right femoral plaque Specimen A: Received in saline labeled "plaque", description "left femoral plaque" is a 2.5 x 2.5 x 0.5 cm aggregate of sinha-white to yellow-ferreira, rubbery fibrous tissue. Sectioning reveals focal calcification. Oral And Maxillofacial Surgery Resident sections are submitted in cassette A1 for decalcification.Specimen B: Received in saline labeled "plaque", description "right femoral plaque" are three irregular, sinha-white to yellow-ferreira, rubbery portions of fibrous tissue measuring 1.5 x 1.5 x 0.2 cm in aggregate. Sectioning reveals focal calcification. The specimen is entirely submitted in cassette B1 for decalcification. [id number] 00:38:00 Test Item Value Reference Range Comments MAGNESIUM (BEAKER) (test uuwd=170) 2.1 mg/dL 1.6-2.6 BASIC METABOLIC [id number] 00:38:00 Test Item Value Reference Range Comments SODIUM (BEAKER) (test 136 meq/L 136-145 picn=960) POTASSIUM (BEAKER) (test 3.8 meq/L 3.5-5.1 lyzs=009) CHLORIDE (BEAKER) (test 104 meq/L 98-107 zxws=588) CO2 (BEAKER) (test 26 meq/L 22-29 cxpg=233) BLOOD UREA NITROGEN 11 mg/dL 7-21 (BEAKER) (test tfri=535) CREATININE (BEAKER) (test 0.92 mg/dL 0.57-1.25 fstc=982) GLUCOSE RANDOM (BEAKER) 99 mg/dL 70-105 (test zjus=435) CALCIUM (BEAKER) (test 8.5 mg/dL 8.4-10.2 itai=459) EGFR (BEAKER) (test 103 mL/min/1.73 sq m ESTIMATED GFR IS NOT rano=0502) ACCURATE CREATININE CLEARANCE IN PREDICTING GLOMERULAR FILTRATION RATE. ESTIMATED GFR IS NOT APPLICABLE FOR DIALYSIS PATIENTS. CBC W/PLT COUNT & AUTO [id number] 13:39:00 Test Item Value Reference Range Comments WHITE BLOOD CELL COUNT 14.6 K/ L 3.5-10.5 (BEAKER) (test zach=301) RED BLOOD CELL COUNT (BEAKER) 3.59 M/ L 4.63-6.08 (test ugne=519) HEMOGLOBIN (BEAKER) (test 11.0 GM/DL 13.7-17.5 ywpq=236) HEMATOCRIT (BEAKER) (test 32.8 % 40.1-51.0 nrhb=119) MEAN CORPUSCULAR VOLUME 91.4 fL 79.0-92.2 (BEAKER) (test xzyu=079) MEAN CORPUSCULAR HEMOGLOBIN 30.6 pg 25.7-32.2 (BEAKER) (test ytrz=867) MEAN CORPUSCULAR HEMOGLOBIN 33.5 GM/DL 32.3-36.5 CONC (BEAKER) (test jidh=768) RED CELL DISTRIBUTION WIDTH 12.9 % 11.6-14.4 (BEAKER) (test npfk=927) PLATELET COUNT (BEAKER) (test 143 K/CU MM 150-450 tlys=179) MEAN PLATELET VOLUME (BEAKER) 10.8 fL 9.4-12.4 (test xyak=020) NUCLEATED RED BLOOD CELLS 0 /100 WBC 0-0 (BEAKER) (test lfnz=739) NEUTROPHILS RELATIVE PERCENT 66 % This is an appended report. (BEAKER) (test dmua=589) These results have been appended to a previously final verified report. LYMPHOCYTES RELATIVE PERCENT 20 % This is an appended report. (BEAKER) (test vgcp=493) These results have been appended to a previously final verified report. MONOCYTES RELATIVE PERCENT 11 % This is an appended report. (BEAKER) (test xfdd=956) These results have been appended to a previously final verified report. EOSINOPHILS RELATIVE PERCENT 3 % This is an appended report. (BEAKER) (test ccar=442) These results have been appended to a previously final verified report. BASOPHILS RELATIVE PERCENT 0 % This is an appended report. (BEAKER) (test hloz=513) These results have been appended to a previously final verified report. NEUTROPHILS ABSOLUTE COUNT 9.59 K/ L 1.78-5.38 This is an appended report. (BEAKER) (test sdtf=319) These results have been appended to a previously final verified report. LYMPHOCYTES ABSOLUTE COUNT 2.96 K/ L 1.32-3.57 This is an appended report. (BEAKER) (test jeuu=745) These results have been appended to a previously final verified report. MONOCYTES ABSOLUTE COUNT 1.59 K/ L 0.30-0.82 This is an appended report. (BEAKER) (test virl=159) These results have been appended to a previously final verified report. EOSINOPHILS ABSOLUTE COUNT 0.37 K/ L 0.04-0.54 This is an appended report. (BEAKER) (test jofp=711) These results have been appended to a previously final verified report. BASOPHILS ABSOLUTE COUNT 0.04 K/ L 0.01-0.08 This is an appended report. (BEAKER) (test xzgt=355) These results have been appended to a previously final verified report. IMMATURE GRANULOCYTES-RELATIVE 1 % 0-1 This is an appended report. PERCENT (BEAKER) (test These results have been agio=7971) appended to a previously final verified report. POCT-GLUCOSE [id number] 09:12:00 Test Item Value Reference Range Comments POC-GLUCOSE METER (BEAKER) 81 mg/dL 70-110 TESTED AT [facility] [address] [facility] (test dvjh=7515) [facility] [address] BASIC METABOLIC [id number] 05:02:00 Test Item Value Reference Range Comments SODIUM (BEAKER) (test 136 meq/L 136-145 xrgb=017) POTASSIUM (BEAKER) (test 3.8 meq/L 3.5-5.1 lmka=294) CHLORIDE (BEAKER) (test 105 meq/L 98-107 fusr=745) CO2 (BEAKER) (test 25 meq/L 22-29 bksa=474) BLOOD UREA NITROGEN 9 mg/dL 7-21 (BEAKER) (test xqvu=390) CREATININE (BEAKER) (test 0.82 mg/dL 0.57-1.25 vcvc=528) GLUCOSE RANDOM (BEAKER) 89 mg/dL 70-105 (test mzla=536) CALCIUM (BEAKER) (test 8.3 mg/dL 8.4-10.2 essm=113) EGFR (BEAKER) (test 117 mL/min/1.73 sq m ESTIMATED GFR IS NOT mtog=4333) ACCURATE CREATININE CLEARANCE IN PREDICTING GLOMERULAR FILTRATION RATE. ESTIMATED GFR IS NOT APPLICABLE FOR DIALYSIS PATIENTS. POCT-GLUCOSE [id number] 21:22:00 Test Item Value Reference Range Comments POC-GLUCOSE METER (BEAKER) 121 mg/dL 70-110 TESTED AT [facility] [address] [place] [address] (test yfew=5660) [facility] [address] [id number] 04:30:00 Test Item Value Reference Range Comments PHOSPHORUS (BEAKER) (test dmva=316) 2.7 mg/dL 2.3-4.7 [id number] 04:30:00 Test Item Value Reference Range Comments MAGNESIUM (BEAKER) (test qial=230) 2.5 mg/dL 1.6-2.6 BASIC METABOLIC [id number] 04:30:00 Test Item Value Reference Range Comments SODIUM (BEAKER) (test 134 meq/L 136-145 kvlm=190) POTASSIUM (BEAKER) (test 3.8 meq/L 3.5-5.1 yonh=912) CHLORIDE (BEAKER) (test 104 meq/L 98-107 rlnt=744) CO2 (BEAKER) (test 22 meq/L 22-29 odvs=074) BLOOD UREA NITROGEN 13 mg/dL 7-21 (BEAKER) (test ocku=736) CREATININE (BEAKER) (test 0.96 mg/dL 0.57-1.25 aycd=247) GLUCOSE RANDOM (BEAKER) 115 mg/dL 70-105 (test vfxd=432) CALCIUM (BEAKER) (test 8.2 mg/dL 8.4-10.2 cpiq=391) EGFR (BEAKER) (test 98 mL/min/1.73 sq m ESTIMATED GFR IS NOT ynvf=2734) ACCURATE CREATININE CLEARANCE IN PREDICTING GLOMERULAR FILTRATION RATE. ESTIMATED GFR IS NOT APPLICABLE FOR DIALYSIS PATIENTS. LACTIC ACID, ARTERIAL, WHOLE [id number] 04:15:00 Test Item Value Reference Range Comments LACTATE BLOOD ARTERIAL (2) (BEAKER) (test 1.0 mmol/L 0.5-2.2 smzp=3261) Effective 09/27/2015: Units/Reference Range ChangeNew: 0.5-2.2 mmol/L Previous: 5 -20 mg/dLCBC W/PLT COUNT & AUTO [id number] 04:12:00 Test Item Value Reference Range Comments WHITE BLOOD CELL COUNT (BEAKER) (test tlwu=866) 16.5 K/ L 3.5-10.5 RED BLOOD CELL COUNT (BEAKER) (test wmyq=650) 4.08 M/ L 4.63-6.08 HEMOGLOBIN (BEAKER) (test jpje=508) 12.5 GM/DL 13.7-17.5 HEMATOCRIT (BEAKER) (test wozn=127) 36.9 % 40.1-51.0 MEAN CORPUSCULAR VOLUME (BEAKER) (test aljb=250) 90.4 fL 79.0-92.2 MEAN CORPUSCULAR HEMOGLOBIN (BEAKER) (test 30.6 pg 25.7-32.2 rqsd=735) MEAN CORPUSCULAR HEMOGLOBIN CONC (BEAKER) (test 33.9 GM/DL 32.3-36.5 chqm=601) RED CELL DISTRIBUTION WIDTH (BEAKER) (test 12.8 % 11.6-14.4 vosn=003) PLATELET COUNT (BEAKER) (test tmfx=735) 183 K/CU MM 150-450 MEAN PLATELET VOLUME (BEAKER) (test jcgj=819) 10.2 fL 9.4-12.4 NUCLEATED RED BLOOD CELLS (BEAKER) (test 0 /100 WBC 0-0 kdoc=072) NEUTROPHILS RELATIVE PERCENT (BEAKER) (test 80 % cfhp=290) LYMPHOCYTES RELATIVE PERCENT (BEAKER) (test 11 % pkdv=259) MONOCYTES RELATIVE PERCENT (BEAKER) (test 8 % mros=128) EOSINOPHILS RELATIVE PERCENT (BEAKER) (test 1 % tpsr=151) BASOPHILS RELATIVE PERCENT (BEAKER) (test 0 % tneb=303) NEUTROPHILS ABSOLUTE COUNT (BEAKER) (test 13.15 K/ L 1.78-5.38 rfbq=361) LYMPHOCYTES ABSOLUTE COUNT (BEAKER) (test 1.85 K/ L 1.32-3.57 xwqc=104) MONOCYTES ABSOLUTE COUNT (BEAKER) (test 1.36 K/ L 0.30-0.82 jwqj=375) EOSINOPHILS ABSOLUTE COUNT (BEAKER) (test 0.10 K/ L 0.04-0.54 irke=518) BASOPHILS ABSOLUTE COUNT (BEAKER) (test 0.03 K/ L 0.01-0.08 irfi=374) IMMATURE GRANULOCYTES-RELATIVE PERCENT (BEAKER) 0 % 0-1 (test myyp=5816) CALCIUM, [id number] 03:51:00 Test Item Value Reference Range Comments CALCIUM IONIZED (BEAKER) (test jiok=122) 1.08 mmol/L 1.12-1.27 PH, BLOOD (BEAKER) (test urux=3620) 7.41 POCT-GLUCOSE [id number] 22:24:00 Test Item Value Reference Range Comments POC-GLUCOSE METER (BEAKER) 159 mg/dL 70-110 TESTED AT [address] (test oerz=0675) [facility] [address] RAD, CHEST, 1 VIEW, NON [id number] 19:01:00Reason for exam:->central line placement Should this [...] MDReport Verified Date/Time: 2017 19:01:26 Reading Location: [facility] [id number] Consult Reading Room [id number] 18:09:00 Test Item Value Reference Range Comments PHOSPHORUS (BEAKER) (test vjgi=840) 3.1 mg/dL 2.3-4.7 [id number] 18:09:00 Test Item Value Reference Range Comments MAGNESIUM (BEAKER) (test qtds=035) 1.7 mg/dL 1.6-2.6 BASIC METABOLIC [id number] 18:09:00 Test Item Value Reference Range Comments SODIUM (BEAKER) (test 137 meq/L 136-145 rimm=918) POTASSIUM (BEAKER) (test 3.9 meq/L 3.5-5.1 qihk=465) CHLORIDE (BEAKER) (test 108 meq/L 98-107 gzka=121) CO2 (BEAKER) (test 23 meq/L 22-29 lqdd=321) BLOOD UREA NITROGEN 14 mg/dL 7-21 (BEAKER) (test isuq=972) CREATININE (BEAKER) (test 0.95 mg/dL 0.57-1.25 hyop=520) GLUCOSE RANDOM (BEAKER) 231 mg/dL 70-105 (test kydj=404) CALCIUM (BEAKER) (test 8.1 mg/dL 8.4-10.2 cpci=232) EGFR (BEAKER) (test 99 mL/min/1.73 sq m ESTIMATED GFR IS NOT npfi=0547) ACCURATE CREATININE CLEARANCE IN PREDICTING GLOMERULAR FILTRATION RATE. ESTIMATED GFR IS NOT APPLICABLE FOR DIALYSIS PATIENTS. PROTHROMBIN [id number] 18:01:00 Test Item Value Reference Range Comments PROTIME (BEAKER) (test hrjq=911) 15.8 seconds 11.7-14.7 INR (BEAKER) (test klrp=755) 1.3 <=5.9 RECOMMENDED COUMADIN/WARFARIN INR THERAPY RANGESSTANDARD DOSE: 2.0 - 3.0 Includes: PROPHYLAXIS forvenous thrombosis, systemic embolization; TREATMENT for venous thrombosis and/or pulmonary embolus.HIGH RISK: Target INR is 2.5-3.5 for patients with mechanical heart valves.[id number] 18:01:00 Test Item Value Reference Range Comments FIBRINOGEN LEVEL (BEAKER) (test xrqi=661) 354 mg/dl 225-434 [id number] 18:01:00 Test Item Value Reference Range Comments PARTIAL THROMBOPLASTIN TIME (BEAKER) (test 34.5 seconds 22.5-36.0 jadh=530) CBC W/PLT COUNT & AUTO [id number] 17:52:00 Test Item Value Reference Range Comments WHITE BLOOD CELL COUNT (BEAKER) (test ttno=461) 21.1 K/ L 3.5-10.5 RED BLOOD CELL COUNT (BEAKER) (test jmpz=016) 4.68 M/ L 4.63-6.08 HEMOGLOBIN (BEAKER) (test wjtw=654) 14.3 GM/DL 13.7-17.5 HEMATOCRIT (BEAKER) (test mxoh=536) 42.8 % 40.1-51.0 MEAN CORPUSCULAR VOLUME (BEAKER) (test kmve=491) 91.5 fL 79.0-92.2 MEAN CORPUSCULAR HEMOGLOBIN (BEAKER) (test 30.6 pg 25.7-32.2 igwf=219) MEAN CORPUSCULAR HEMOGLOBIN CONC (BEAKER) (test 33.4 GM/DL 32.3-36.5 kvqw=857) RED CELL DISTRIBUTION WIDTH (BEAKER) (test 13.0 % 11.6-14.4 khjv=263) PLATELET COUNT (BEAKER) (test fpaz=695) 216 K/CU MM 150-450 MEAN PLATELET VOLUME (BEAKER) (test gzlg=766) 10.3 fL 9.4-12.4 NUCLEATED RED BLOOD CELLS (BEAKER) (test 0 /100 WBC 0-0 bwjc=116) NEUTROPHILS RELATIVE PERCENT (BEAKER) (test 65 % qior=665) LYMPHOCYTES RELATIVE PERCENT (BEAKER) (test 24 % oijw=058) MONOCYTES RELATIVE PERCENT (BEAKER) (test 7 % gwhc=236) EOSINOPHILS RELATIVE PERCENT (BEAKER) (test 3 % mhqf=738) BASOPHILS RELATIVE PERCENT (BEAKER) (test 0 % srmp=965) NEUTROPHILS ABSOLUTE COUNT (BEAKER) (test 13.75 K/ L 1.78-5.38 aqhl=021) LYMPHOCYTES ABSOLUTE COUNT (BEAKER) (test 4.96 K/ L 1.32-3.57 poxu=082) MONOCYTES ABSOLUTE COUNT (BEAKER) (test 1.37 K/ L 0.30-0.82 nvzx=571) EOSINOPHILS ABSOLUTE COUNT (BEAKER) (test 0.69 K/ L 0.04-0.54 evin=108) BASOPHILS ABSOLUTE COUNT (BEAKER) (test 0.05 K/ L 0.01-0.08 kufe=601) IMMATURE GRANULOCYTES-RELATIVE PERCENT (BEAKER) 1 % 0-1 (test bmkg=7218) HEMOGLOBIN [id number] 14:43:00 Test Item Value Reference Range Comments HEMOGLOBIN A1C (BEAKER) (test vfiw=667) 5.6 % 4.3-6.1 BASIC METABOLIC [id number] 12:35:00 Test Item Value Reference Range Comments SODIUM (BEAKER) (test 141 meq/L 136-145 nkql=176) POTASSIUM (BEAKER) (test 4.1 meq/L 3.5-5.1 lask=917) CHLORIDE (BEAKER) (test 105 meq/L 98-107 rozx=575) CO2 (BEAKER) (test 28 meq/L 22-29 ubyc=583) BLOOD UREA NITROGEN 9 mg/dL 7-21 (BEAKER) (test vuls=228) CREATININE (BEAKER) (test 0.82 mg/dL 0.57-1.25 uxfd=887) GLUCOSE RANDOM (BEAKER) 89 mg/dL 70-105 (test rzle=523) CALCIUM (BEAKER) (test 9.5 mg/dL 8.4-10.2 dgsr=953) EGFR (BEAKER) (test 117 mL/min/1.73 sq m ESTIMATED GFR IS NOT ugaw=9959) ACCURATE CREATININE CLEARANCE IN PREDICTING GLOMERULAR FILTRATION RATE. ESTIMATED GFR IS NOT APPLICABLE FOR DIALYSIS PATIENTS. PROTHROMBIN TIME/[id number] 12:32:00 Test Item Value Reference Range Comments PROTIME (BEAKER) (test ntwb=539) 13.7 seconds 11.7-14.7 INR (BEAKER) (test yhlq=884) 1.1 <=5.9 RECOMMENDED COUMADIN/WARFARIN INR THERAPY RANGESSTANDARD DOSE: 2.0 - 3.0 Includes: PROPHYLAXIS forvenous thrombosis, systemic embolization; TREATMENT for venous thrombosis and/or pulmonary embolus.HIGH RISK: Target INR is 2.5-3.5 for patients with mechanical heart valves.RAD, CHEST, 2 [id number] 12:21: 00Reason for Exam:->Pre-OpFINAL REPORT Chest two views INDICATION: Preoperative exam. Aortic iliac disease, femoral popliteal artery atherosclerosis COMPARISON: None available IMPRESSION: There is no focal consolidation, vascular congestion, pleural effusion, or pneumothorax. The cardiomediastinal silhouette is unremarkable. There are mild degenerative spine and shoulder changes. Signed: Yaw [place] MDReport Verified Date/Time: 09/16/2017 12:21:59 Reading Location: [facility] Radiology Reading Room CBC W/ PLT COUNT & AUTO [id number] 12:19:00 Test Item Value Reference Range Comments WHITE BLOOD CELL COUNT (BEAKER) (test tfiq=190) 8.6 K/ L 3.5-10.5 RED BLOOD CELL COUNT (BEAKER) (test tmme=271) 5.05 M/ L 4.63-6.08 HEMOGLOBIN (BEAKER) (test irvh=423) 15.4 GM/DL 13.7-17.5 HEMATOCRIT (BEAKER) (test yaac=811) 47.1 % 40.1-51.0 MEAN CORPUSCULAR VOLUME (BEAKER) (test bdqq=848) 93.3 fL 79.0-92.2 MEAN CORPUSCULAR HEMOGLOBIN (BEAKER) (test 30.5 pg 25.7-32.2 hhcr=859) MEAN CORPUSCULAR HEMOGLOBIN CONC (BEAKER) (test 32.7 GM/DL 32.3-36.5 smxu=026) RED CELL DISTRIBUTION WIDTH (BEAKER) (test 13.0 % 11.6-14.4 usyf=378) PLATELET COUNT (BEAKER) (test kghw=820) 272 K/CU MM 150-450 MEAN PLATELET VOLUME (BEAKER) (test xmmf=644) 10.6 fL 9.4-12.4 NUCLEATED RED BLOOD CELLS (BEAKER) (test 0 /100 WBC 0-0 dnjv=372) NEUTROPHILS RELATIVE PERCENT (BEAKER) (test 55 % yzbi=885) LYMPHOCYTES RELATIVE PERCENT (BEAKER) (test 33 % bxis=564) MONOCYTES RELATIVE PERCENT (BEAKER) (test 6 % fxah=408) EOSINOPHILS RELATIVE PERCENT (BEAKER) (test 5 % ivgk=753) BASOPHILS RELATIVE PERCENT (BEAKER) (test 0 % msxp=487) NEUTROPHILS ABSOLUTE COUNT (BEAKER) (test 4.70 K/ L 1.78-5.38 gxkq=630) LYMPHOCYTES ABSOLUTE COUNT (BEAKER) (test 2.83 K/ L 1.32-3.57 kdaw=706) MONOCYTES ABSOLUTE COUNT (BEAKER) (test 0.51 K/ L 0.30-0.82 iagz=796) EOSINOPHILS ABSOLUTE COUNT (BEAKER) (test 0.46 K/ L 0.04-0.54 fwmh=323) BASOPHILS ABSOLUTE COUNT (BEAKER) (test 0.03 K/ L 0.01-0.08 nhjd=590) IMMATURE GRANULOCYTES-RELATIVE PERCENT (BEAKER) 0 % 0-1 (test twgs=0970)
[2018-12-26] MEDS ORDERED: WATER FOR INJ,STERILE 10 ML ONE (12:21)
[2018-12-26] MEDS ORDERED: PANTOPRAZOLE 40 MG INJ ONE (12:21)
[2018-12-26 12:40] LABS: Absolute Lymphocytes (CBC) 1.9 K/uL (0.7-4.9); Basophils % 0.4 % (0-1.3); Lymphocytes % 14.5 % (15.3-44.8); MPV 7.5 fL (7.6-11.3); RBC Red Blood Cell Count 3.76 M/uL (4.33-5.43)
[2018-12-26 12:44] LABS: Protime INR 1.21
[2018-12-26 13:00] LABS: Albumin 3.1 g/dL (3.4-5.0); Bilirubin Direct 0.5 mg/dL (0-0.2); Bilirubin Total 0.7 mg/dL (0.2-1.0); Potassium 3.7 mmol/L (3.5-5.1); Protein, Total 8.1 g/dL (6.4-8.2)
[2018-12-26 13:02] LABS: Blood Morphology Comment NOT SEEN (NOT SEEN); Platelet Estimate INCR
--- NOTE | 2018-12-26 13:28 | RAD REPORT ---
EXAM DESCRIPTION: RAD - Foot Right 3 View - 12/26/2018 12:36 pm CLINICAL HISTORY: Right foot pain FINDINGS: Vertical lucency within the anterior calcaneus is unchanged from March 2018 and may rep resent nondisplaced fracture or a joint space giving the appearance of a fracture. The bones are osteoporotic. No bony destructive lesion is seen.
--- NOTE | 2018-12-26 14:20 | RAD REPORT ---
EXAM DESCRIPTION: USExtremity Venous Uni Ltd12/26/2018 1:48 pm CLINICAL HISTORY: Right leg pain COMPARISON: 2018 FINDINGS: Right common femoral, superficial femoral, popliteal and right posterior tibial veins are compressible and demonstrate augmentation. Doppler demonstrates good flow. IMPRESSION: No evidence of deep venous thrombosis involving the right lower extremity.
[2018-12-26] MEDS ORDERED: FENTANYL CITR 100 MCG/2 ML ONE (14:38)
[2018-12-26] MEDS ORDERED: NA CHLORIDE 0.9% 1,000 ML ONE (14:38)
--- NOTE | 2018-12-26 14:43 | RAD REPORT ---
EXAM DESCRIPTION: US - Lower Extremity Artery Uni Ltd - 12/26/2018 1:48 pm CLINICAL HISTORY: Leg pain COMPARISON: 2018 FINDINGS: Right common femoral arterial waveform triphasic Right femoral stent does not demonstrate flow. Most of the [place] right superficial femoral artery is occluded. Minimal flow within distal right sup erficial femoral artery. Monophasic waveform right popliteal artery. Monophasic waveform right posterior tibial and right dors galilea pedis arteries IMPRESSION: Occlusion of a right femoral stent Most of the [place] right superficial femoral artery is occluded. Diminished flow right popliteal and distal right lower extremity arteries
--- NOTE | 2018-12-26 14:45 | RAD REPORT ---
EXAM DESCRIPTION: RAD - Abdomen W Erect - 12/26/2018 2:30 pm CLINICAL HISTORY: Abdominal pain FINDINGS: The bowel gas pattern is unremarkable with moderate amount of stool throughout the colon. No free-air. Vascular calcification
--- NOTE | 2018-12-26 15:25 | ER ---
Nurse's Notes [facility] Name: Noé Garcia Age: 58 yrs Sex: Male : 1960 Arrival Date: 12/26/2018 Time: 11:48 Bed 23 Private MD: Diagnosis: Pain in right foot;Occluded right femoral stent Presentation: 12/26 11:49 Presenting complaint: Patient states: hx of vascular surgery in the R leg, "i started hj having this R lower leg pain last and vomiting and have just been diagnosed with liver cancer" denies abd pain; denies fever and chills;. Transition of care: patient was not received from another setting of care. Onset of symptoms was December 26, 2018. Risk Assessment: Do you want to hurt yourself or someone else? Patient reports no desire to harm self or others. Initial Sepsis Screen: Does the patient meet any 2 criteria? No. Patient's initial sepsis screen is negative. Does the patient have a suspected source of infection? No. Patient's initial sepsis screen is negative. Care prior to arrival: None. 11:49 Method Of Arrival: Ambulatory 11:49 Acuity: BINH 3 hj Historical: - Allergies: 12:16 No Known Allergies; ca1 - Home Meds: 12:16 enoxaparin subcutaneous 50mg subcutaneous .5 mL every 12 hours [Active]; atorvastatin ca1 40 mg oral tab 1 tab once daily [Active]; amlodipine 5 mg tab 1 tab once daily [Active]; lisinopril-hydrochlorothiazide 20-25 mg Oral tab 1 tab once daily [Active]; cilostazol 100 mg Oral tab 1 tab 2 times per day [Active]; simvastatin 40 mg Oral tab 1 tab once daily [Active]; - PMHx: 12:16 Cirrhosis; Hypertension; liver cancer; ca1 - PSHx: 12:16 Stent on R Leg; ca1 - Immunization history:: Adult Immunizations not up to date. - Social history:: Smoking status: Patient/guardian denies using tobacco. - Ebola Screening: : Patient negative for fever greater than or equal to 101.5 degrees Fahrenheit, and additional compatible Ebola Virus Disease symptoms Patient denies exposure to infectious person Patient denies travel to an Ebola-affected area in the 21 days before illness onset No symptoms or risks identified at this time. Screenin:16 Abuse screen: Denies threats or abuse. Denies injuries from another. Nutritional ca1 screening:. Nutritional screening: No deficits noted. Tuberculosis screening: No symptoms or risk factors identified. Fall Risk IV access (20 points). Ambulatory Aid- Crutches/Cane/Walker (15 pts). Gait- Weak (10 pts.). Total Ureña Fall Scale indicates Low Risk Score (25-44 pts). Fall prevention measures have been instituted. Side Rails Up X 2 Family Present and informed to notify staff if they need to leave bedside As available Patient and Family Educated on Fall Prevention Program and strategies. Assessment: 12:07 General: Appears in no apparent distress. ill, slender, Behavior is calm, cooperative, ca1 appropriate for age. Pain: Complains of pain in right foot Pain does not radiate. Pain currently is 10 out of 10 on a pain scale. Pain began 2-3 days ago. Neuro: Level of Consciousness is awake, alert, obeys commands, Oriented to person, place, time, situation. Cardiovascular: Heart tones S1 S2 present Capillary refill < 3 seconds Patient's skin is warm and dry. Cardiovascular: Rhythm is sinus tachycardia. Respiratory: Airway is patent Respiratory effort is even, unlabored, Respiratory pattern is regular, symmetrical, Breath sounds are clear bilaterally. GI: Abdomen is flat, non-distended, Bowel sounds present X 4 quads. Abd is soft and non tender X 4 quads. Reports nausea, vomiting. : No deficits noted. No signs and/or symptoms were reported regarding the genitourinary system. EENT: No deficits noted. No signs and/or symptoms were reported regarding the EENT system. Derm: Skin is intact, is healthy with good turgor, Skin is pink, warm \\T\\ dry. Musculoskeletal: Circulation, motion, and sensation intact. Capillary refill < 3 seconds. 12:57 Reassessment: Patient appears in no apparent distress at this time. Patient and/or ca1 family updated on plan of care and expected duration. Pain level reassessed. Patient is alert, oriented x 3, equal unlabored respirations, skin warm/dry/pink. Ultrasound at bedside. 13:50 Reassessment: Patient appears in no apparent distress at this time. Patient and/or ca1 family updated on plan of care and expected duration. Pain level reassessed. Patient is alert, oriented x 3, equal unlabored respirations, skin warm/dry/pink. 14:32 Reassessment: Patient appears in no apparent distress at this time. Patient and/or ca1 family updated on plan of care and expected duration. Pain level reassessed. Patient is alert, oriented x 3, equal unlabored respirations, skin warm/dry/pink. Pain meds requested. Notified provider. Order given. 15:35 Reassessment: Patient appears in no apparent distress at this time. Patient and/or ca1 family updated on plan of care and expected duration. Pain level reassessed. Patient is alert, oriented x 3, equal unlabored respirations, skin warm/dry/pink. 16:41 Reassessment: Called report to Miranda Josue RN. Reassessment: Patient appears in no ca1 apparent distress at this time. Patient and/or family updated on plan of care and expected duration. Pain level reassessed. Patient is alert, oriented x 3, equal unlabored respirations, skin warm/dry/pink. Daughter at bedside. 17:40 Reassessment: Patient appears in no apparent distress at this time. Patient and/or ca1 family updated on plan of care and expected duration. Pain level reassessed. Patient is alert, oriented x 3, equal unlabored respirations, skin warm/dry/pink. 18:23 Reassessment: Patient appears in no apparent distress at this time. Patient and/or ca1 family updated on plan of care and expected duration. Pain level reassessed. Patient is alert, oriented x 3, equal unlabored respirations, skin warm/dry/pink. Report given to Prabhjot Humphreyedic. Vital Signs: 11:52 BP 91 / 65; Pulse 112; Resp 18; Temp 98.4(O); Pulse Ox 100% on R/A; Weight 53.07 kg; hj Height 5 ft. 7 in. (170.18 cm); Pain 10/10; 12:16 BP 103 / 74; Pulse 108; Resp 16 S; Pulse Ox 100% on R/A; ca1 12:57 BP 114 / 77; Pulse 98; Resp 17 S; Pulse Ox 100% on R/A; ca1 13:50 BP 107 / 80; Pulse 94; Resp 15 S; Pulse Ox 100% ; ca1 14:30 BP 107 / 80; Pulse 99; Resp 16 S; Pulse Ox 100% on R/A; ca1 15:39 BP 124 / 84; Pulse 95; Resp 16 S; Pulse Ox 100% on R/A; ca1 16:30 BP 127 / 78; Pulse 87; Resp 16 S; Temp 98.2(O); Pulse Ox 100% on R/A; ca1 17:31 BP 112 / 65; Pulse 96; Resp 18 S; Pulse Ox 100% on R/A; ca1 18:00 BP 110 / 64; Pulse 99; Resp 17 S; Pulse Ox 100% on R/A; ca1 18:39 BP 120 / 61; Pulse 106; Resp 17 S; Temp 98.1(O); Pulse Ox 100% on R/A; ca1 11:52 Body Mass Index 18.32 (53.07 kg, 170.18 cm) ED Course: 11:48 Patient arrived in ED. mr 11:52 Triage completed. hj 11:52 Arm band placed on left wrist. hj 11:57 Jordi Thrasher PA is PHCP. 11:57 Raul Davila MD is Attending Physician. cp 12:02 Lora Ellison RN is Primary Nurse. ca1 12:16 Patient has correct armband on for positive identification. Placed in gown. Bed in low ca1 position. Call light in reach. Side rails up X 1. md allergy immunology on. Pulse ox on. NIBP on. Warm blanket given. 12:25 Inserted saline lock: 20 gauge in right antecubital area, using aseptic technique. ca1 Blood collected. 12:36 XRAY Foot RIGHT 3 View In Process Unspecified. EDMS 13:48 US Extremity Venous Unilateral Ltd In Process Unspecified. EDMS 13:48 US LE Artery Uni Ltd In Process Unspecified. EDMS 13:54 Ultrasound completed. Patient tolerated well. Notified LOFT RIGGER/PA page. sg3 14:29 XRAY Abdomen With Erect In Process Unspecified. EDMS 15:10 initiated a transfer with Amanda at the [facility]. eb 15:16 connected the vascular surgeon nursing education specialist for [facility] Dr. Washington with Dr. Davila for eb patient transfer consultation. 15:30 Inserted saline lock: 22 gauge in left antecubital area, using aseptic technique. ca1 15:38 connected the hospitalist nursing education specialist for [facility] with Jordi ALVAREZ for patient transfer eb consultation. 15:52 connected the hospitalist Kristin Livingston with Jordi ALVAREZ for patient transfer consultation. 16:02 administrative approval given by Piedad Quiroga RN / patient has been accepted to [facility] by Dr. Ran Foster/ patient is going to 10 tower bed 1035/ report to be called to [phone]. 16:49 No provider procedures requiring assistance completed. Patient transferred, IV remains ca1 in place. Administered Medications: 12:27 Drug: ProTONIX 40 mg Route: IVP; Site: right antecubital; ca1 14:31 Follow up: Response: No adverse reaction ca1 14:46 Drug: fentaNYL (PF) 25 mcg Route: IVP; Site: right antecubital; ca1 15:30 Follow up: Response: No adverse reaction; Pain is unchanged, physician notified ca1 14:46 Drug: NS 0.9% 1000 ml Route: IV; Rate: 1 bolus; Site: right antecubital; ca1 16:19 Follow up: Response: No adverse reaction; IV Status: Completed infusion ca1 15:40 Drug: fentaNYL (PF) 25 mcg Route: IVP; Site: left antecubital; ca1 16:50 Follow up: Response: No adverse reaction; Pain is decreased ca1 15:49 Drug: Heparin (DVT/PE Drip) 18 units/kg/hr - (HEParin 02914 units, D5W 500 ml) ca1 {Co-Signature: iw (Esther Knowles RN).} Route: IV; Rate: calculated rate; Site: right antecubital; 16:51 Follow up: IV Status: Infusion continued upon transfer ca1 Outcome: 15:24 ER care complete, transfer ordered by MD. matamoros 18:40 Transferred by ground EMS to [facility], Transfer form completed. ca1 X-rays sent w/ patient. 18:40 Condition: stable 18:40 Instructed on the need for transfer. 18:41 Patient left the ED. ca1 Signatures: Dispatcher [employer] NATHALYDC Susanna Rajput RobertParas hernandez RN RN Jordi Newby PA PA cp Godinez, Sarah 3 Samira Bradley Cheryl, RN RN ca1 Esther Knowles RN iw Corrections: (The following items were deleted from the chart) 11:54 11:52 Pulse 112bpm; Resp 18bpm; Pulse Ox 100% RA; Temp 98.4F Oral; 53.07 kg; Height 5 hj ft. 7 in.; BMI: 18.3; Pain 10/10; hj 15:42 15:16 connected the vascular surgeon nursing education specialist Dr. Washington with Dr. Davila for patient eb transfer consultation, eb 16:46 14:32 Reassessment: Pain meds requested. Notified provider. Order given. ca1 ca1 16:46 16:41 Reassessment: Patient appears in no apparent distress at this time. Patient ca1 and/or family updated on plan of care and expected duration. Pain level reassessed. Patient is alert, oriented x 3, equal unlabored respirations, skin warm/dry/pink. ca1 18:40 18:23 BP 110 / 64; Pulse 99bpm; Resp 17bpm; Spontaneous; Pulse Ox 100% RA; ca1 ca1
--- NOTE | 2018-12-26 15:25 | EDPHYS ---
Physician Documentation [facility] Name: Noé Garcia Age: 58 yrs Sex: Male : 1960 Arrival Date: 12/26/2018 Time: 11:48 Bed 23 Private MD: ED Physician Raul Davila HPI: 12/26 12:20 This 58 yrs old Black Male presents to ER via Ambulatory with complaints of Leg Pain, cp Vomiting. 12:20 The patient presents with pain, that is acute. cp 12:20 The complaints affect the right foot. Context: resulted from an unknown cause, the cp patient can partially bear weight, the patient is able to ambulate, with moderate difficulty. 12:20 Onset: The symptoms/episode began/occurred gradually, and became worse today. cp Associated signs and symptoms: Pertinent negatives fever, swelling, warmth. Historical: - Allergies: 12:16 No Known Allergies; ca1 - Home Meds: 12:16 enoxaparin subcutaneous 50mg subcutaneous .5 mL every 12 hours [Active]; atorvastatin ca1 40 mg oral tab 1 tab once daily [Active]; amlodipine 5 mg tab 1 tab once daily [Active]; lisinopril-hydrochlorothiazide 20-25 mg Oral tab 1 tab once daily [Active]; cilostazol 100 mg Oral tab 1 tab 2 times per day [Active]; simvastatin 40 mg Oral tab 1 tab once daily [Active]; - PMHx: 12:16 Cirrhosis; Hypertension; liver cancer; ca1 - PSHx: 12:16 Stent on R Leg; ca1 - Immunization history:: Adult Immunizations not up to date. - Social history:: Smoking status: Patient/guardian denies using tobacco. - Ebola Screening: : Patient negative for fever greater than or equal to 101.5 degrees Fahrenheit, and additional compatible Ebola Virus Disease symptoms Patient denies exposure to infectious person Patient denies travel to an Ebola-affected area in the 21 days before illness onset No symptoms or risks identified at this time. ROS: 12:25 Constitutional: Negative for chills, fever, poor PO intake. cp 12:25 Eyes: Negative for injury, pain, redness, and discharge. cp 12:25 ENT: Negative for drainage from ear(s), ear pain, sore throat, difficulty swallowing, difficulty handling secretions. 12:25 Cardiovascular: Negative for chest pain, palpitations. 12:25 Respiratory: Negative for cough, shortness of breath, wheezing. 12:25 Abdomen/GI: Positive for abdominal pain, nausea and vomiting, Negative for diarrhea, constipation, black/tarry stool, rectal bleeding. 12:25 Back: Negative for radiated pain. 12:25 MS/extremity: Positive for pain, of the right foot, Negative for injury or acute deformity, paresthesias. 12:25 Skin: Negative for cellulitis, rash. 12:25 Neuro: Negative for altered mental status, headache. 12:25 All other systems are negative. Exam: 12:45 Constitutional: The patient appears in no acute distress, alert, awake, cp non-diaphoretic, non-toxic, well developed, well nourished. 12:45 Head/Face: Normocephalic, atraumatic. cp 12:45 Eyes: Periorbital structures: appear normal, Conjunctiva: normal, no exudate, no injection, Sclera: no appreciated abnormality, Lids and lashes: appear normal, bilaterally. 12:45 ENT: External ear(s): are unremarkable, Nose: is normal, Mouth: Lips: moist, Oral mucosa: pink and intact, moist, Posterior pharynx: is normal, airway is patent, no erythema, no exudate. 12:45 Chest/axilla: Inspection: normal, Palpation: is normal, no crepitus, no tenderness. 12:45 Cardiovascular: Rate: tachycardic, Rhythm: regular, Edema: is not appreciated, JVD: is not appreciated. 12:45 Respiratory: the patient does not display signs of respiratory distress, Respirations: normal, no use of accessory muscles, no retractions, no splinting, no tachypnea, labored breathing, is not present, Breath sounds: are clear throughout, no decreased breath sounds, no stridor, no wheezing. 12:45 Abdomen/GI: Inspection: abdomen appears normal, Bowel sounds: active, all quadrants, Palpation: soft, in all quadrants, mild abdominal tenderness, in the epigastric area, rebound tenderness, is not appreciated, involuntary guarding, is not appreciated. 12:45 Back: pain, is absent, ROM is normal. 12:45 Musculoskeletal/extremity: Extremities: grossly normal except: noted in the right foot: pain, tenderness, skin is cool to touch, Severe pain noted. 12:45 Skin: cellulitis, is not appreciated, superficial wound dorsum of right foot. Vital Signs: 11:52 BP 91 / 65; Pulse 112; Resp 18; Temp 98.4(O); Pulse Ox 100% on R/A; Weight 53.07 kg; hj Height 5 ft. 7 in. (170.18 cm); Pain 10/10; 12:16 BP 103 / 74; Pulse 108; Resp 16 S; Pulse Ox 100% on R/A; ca1 12:57 BP 114 / 77; Pulse 98; Resp 17 S; Pulse Ox 100% on R/A; ca1 13:50 BP 107 / 80; Pulse 94; Resp 15 S; Pulse Ox 100% ; ca1 14:30 BP 107 / 80; Pulse 99; Resp 16 S; Pulse Ox 100% on R/A; ca1 15:39 BP 124 / 84; Pulse 95; Resp 16 S; Pulse Ox 100% on R/A; ca1 16:30 BP 127 / 78; Pulse 87; Resp 16 S; Temp 98.2(O); Pulse Ox 100% on R/A; ca1 17:31 BP 112 / 65; Pulse 96; Resp 18 S; Pulse Ox 100% on R/A; ca1 18:00 BP 110 / 64; Pulse 99; Resp 17 S; Pulse Ox 100% on R/A; ca1 18:39 BP 120 / 61; Pulse 106; Resp 17 S; Temp 98.1(O); Pulse Ox 100% on R/A; ca1 11:52 Body Mass Index 18.32 (53.07 kg, 170.18 cm) MDM: 12:02 Patient medically screened. cp 14:55 Data reviewed: vital signs, nurses notes, lab test result(s), radiologic studies, cp ultrasound. 14:55 Counseling: I had a detailed discussion with the patient and/or guardian regarding: the cp historical points, exam findings, and any diagnostic results supporting the discharge/admit diagnosis, radiology results, the need to transfer to another facility, for higher level of care. Response to treatment: the patient's symptoms have markedly improved after treatment. 15:18 ED course: Accepted for transfer to [facility] for vascular evaluation of occluded stent, rn patient high risk given PLT > 1 million, will admit to hospitalist. Consulted with Dr. Washington, CV surgery.. 15:57 Physician consultation: DR Foster, hospitalist \T\[facility], will accept patient as cp transfer. 12/26 12:17 Order name: Basic Metabolic Panel; Complete Time: 13:15 cp 12/26 12:17 Order name: CBC with Diff; Complete Time: 13:15 cp 12/26 12:57 Interpretation: Normal except: WBC 12.8; RBC 3.76; HGB 11.3; HCT 32.0; MPV 7.5; MATHIEU% cp 78.9; LYM% 14.5; NEUT A 10.1. 12/26 12:17 Order name: Creatinine for Radiology; Complete Time: 12:57 cp 12/26 12:17 Order name: Hepatic Function; Complete Time: 13:15 cp 12/26 12:17 Order name: Lipase; Complete Time: 13:15 cp 12/26 12:17 Order name: PT-INR; Complete Time: 12:57 cp 12/26 12:17 Order name: XRAY Foot RIGHT 3 View; Complete Time: 13:32 cp 12/26 12:17 Order name: US Extremity Venous Unilateral Ltd; Complete Time: 14:45 cp 12/26 12:17 Order name: US LE Artery Uni Ltd; Complete Time: 14:45 cp 12/26 12:17 Order name: Ptt, Activated; Complete Time: 12:57 cp 12/26 13:02 Order name: Manual Differential; Complete Time: 13:15 EDMS 12/26 13:16 Order name: XRAY Abdomen With Erect; Complete Time: 14:45 cp 12/26 12:17 Order name: IV Saline Lock; Complete Time: 12:31 cp 12/26 12:17 Order name: Labs collected and sent; Complete Time: 12:31 cp 12/26 15:23 Order name: NPO; Complete Time: 15:26 cp Administered Medications: 12:27 Drug: ProTONIX 40 mg Route: IVP; Site: right antecubital; ca1 14:31 Follow up: Response: No adverse reaction ca1 14:46 Drug: fentaNYL (PF) 25 mcg Route: IVP; Site: right antecubital; ca1 15:30 Follow up: Response: No adverse reaction; Pain is unchanged, physician notified ca1 14:46 Drug: NS 0.9% 1000 ml Route: IV; Rate: 1 bolus; Site: right antecubital; ca1 16:19 Follow up: Response: No adverse reaction; IV Status: Completed infusion ca1 15:40 Drug: fentaNYL (PF) 25 mcg Route: IVP; Site: left antecubital; ca1 16:50 Follow up: Response: No adverse reaction; Pain is decreased ca1 15:49 Drug: Heparin (DVT/PE Drip) 18 units/kg/hr - (HEParin 54275 units, D5W 500 ml) ca1 {Co-Signature: iw (Esther Knowles RN).} Route: IV; Rate: calculated rate; Site: right antecubital; 16:51 Follow up: IV Status: Infusion continued upon transfer ca1 Disposition: 18:47 Co-signature as Attending Physician, Raul Davila MD. rn Disposition: 12/26/18 15:24 Transfer ordered to [facility]. Diagnosis are Pain in right foot, Occluded right femoral stent. - Reason for transfer: Higher level of care. - Accepting physician is doctor. - Condition is Stable. - Problem is new. - Symptoms have improved. Signatures: Dispatcher [employer] EDMS Raul Davila MD MD rn Page, Corey, PA PA cp Lora Ellison RN RN ca1 Esther Knowles RN iw Corrections: (The following items were deleted from the chart) 15:19 15:18 ED course: Accepted for transfer to [facility] for vascular evaluation of occluded rn stent, patient high risk given PLT > 1 million, will admit to hospitalist.. rn 15:59 15:24 12/26/2018 15:24 Transfer ordered to [facility]. Diagnosis is cp Pain in right foot. Reason for transfer: Higher level of care. Accepting physician is doctor. Condition is Stable. Problem is new. Symptoms have improved. cp 18:41 15:59 12/26/2018 15:24 Transfer ordered to [facility]. Diagnosis is ca1 Pain in right foot; Occluded right femoral stent. Reason for transfer: Higher level of care. Accepting physician is doctor. Condition is Stable. Problem is new. Symptoms have improved. cp
[2018-12-26] MEDS ORDERED: HEPARIN/D5W 25,000 UNIT/500 ML BAG IV ONE (15:45)
[2018-12-26 18:49] VITALS: O2SAT 100
[2018-12-26 19:00] VITALS: BP 120/61; TEMP 98.1
== END 2018-12-26 18:41 | disposition short-term general hospital (02) ==
LOC: ER 11:45
DX: T82.591A Other mechanical complication of surgically created arteriovenous shunt, initial encounter (principal); I10 Essential (primary) hypertension; Z85.05 Personal history of malignant neoplasm of liver
CPT/HCPCS: 36415; 74019; 80048; 80076; 83690; 85025; 85610; 85730; 93926; 93971; 99285; C9113; J3010; J7030

== ENCOUNTER 2019-01-21 11:33 | Emergency (ER) | payer SELFPAY ==
--- OUTSIDE RECORDS SUMMARY | 2019-01-21 11:36 | XMS REPORT | Clinical Summary ---
:[address] [facility] Address [address] [place] [address] Care Team Providers Name Role Phone Garett Royal Primary Care Provider Michelle Coulter Unavailable Allergies No Known Allergies Medications Medication Sig Dispensed Refills Start End Status Date Date aspirin 81 MG EC Take 81 mg by 0 Active tablet mouth daily. atorvastatin (LIPITOR) Take 40 mg by 0 Active 40 MG tablet mouth nightly. amLODIPine (NORVASC) 5 Take 5 mg by 0 Active MG tablet mouth daily. senna (SENOKOT) 8.6 mg Take 2 tablets 60 tablet 0 12/12/1912/10/ Active tablet (17.2 mg total) 2019 by mouth every night as needed for Constipation. lisinopril Take 1 tablet (20 30 tablet 1 01/04/2001/02/ Active (PRINIVIL,ZESTRIL) 20 mg total) by 2019 MG tablet mouth daily. clopidogrel (PLAVIX) Take 1 tablet (75 30 tablet 1 01/05/2001/03/ Active 75 mg tablet mg total) by 2019 mouth daily. pantoprazole Take 1 tablet (40 30 tablet 2 01/05/20 Active (PROTONIX) 40 MG mg total) by 19 tablet mouth every morning before breakfast. promethazine Take 1 tablet 30 tablet 0 01/04/20 Active (PHENERGAN) 12.5 MG (12.5 mg total) 19 tablet by mouth every 8 (eight) hours as needed for Nausea. HYDROcodone-acetaminop Take 1 tablet by 30 tablet 0 01/04/20 Active hen (NORCO 10-325) mouth every 6 10-325 mg per tablet (six) hours as needed for Pain. Max Daily Amount: 4 tablets apixaban (ELIQUIS) 5 Take 1 tablet (5 60 tablet 1 01/04/20 Active mg Tab tablet mg total) by mouth 2 (two) times daily. atorvastatin (LIPITOR) Take 1 tablet (40 30 tablet 11 10/01/1909/30/ 40 MG tablet mg total) by 2018 mouth nightly. clopidogrel (PLAVIX) Take 1 tablet (75 30 tablet 11 10/02/19 75 mg tablet mg total) by 2018 mouth daily. mINOCYCLine Take 1 capsule 14 capsule 0 03/06/20 (MINOCIN,DYNACIN) 100 (100 mg total) by 2017 MG capsule mouth every 12 (twelve) hours for 7 days. cilostazol (PLETAL) Take 100 mg by 0 01/03/ Discontinued 100 MG tablet mouth 2 (two) 2018 times daily with breakfast and dinner. lisinopril 20 MG Tab Take 1 tablet by 0 01/03/ Discontinued 20 mg, mouth daily. 2019 hydroCHLOROthiazide 25 MG Tab 25 mg docusate sodium Take 1 capsule 20 capsule 0 12/12/19 (COLACE) 100 MG (100 mg total) by 2018 capsule mouth 2 (two) times daily for 10 days. enoxaparin (LOVENOX) Inject 0.5 mLs 60 Syringe 12/12/19 Discontinued 60 mg/0.6 mL Syrg (50 mg total) 2018 subcutaneously every 12 (twelve) hours. mupirocin (BACTROBAN) Apply 1 g 30 g 0 12/12/1912/25/ 2 % ointment topically 2 (two) 2018 times daily for 14 days. ondansetron Take 1 tablet (4 20 tablet 0 12/12/1912/21/ (ZOFRAN-ODT) 4 MG mg total) by 2018 disintegrating tablet mouth every 8 (eight) hours as needed for Nausea for up to 10 days. cefdinir (OMNICEF) 300 Take 1 capsule 14 capsule 0 12/12/1912/18/ MG capsule (300 mg total) by 2018 mouth 2 (two) times daily for 7 days. 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 12/04/2018 Arterial occlusion, lower extremity 03/02/2018 PVD (peripheral vascular disease) 09/25/2017 Hypertension Hyperlipidemia Resolved Problems Problem Noted Date Resolved Date Respiratory insufficiency 09/25/2017 12/07/2018 Encounters Date Type Specialty Care Team Description 12/31/2018 Surgery Isael Rocha / MD Horacio AORTOGRAM 12/28/2018 Surgery Natalio Mcneil MD VENOGRAM 12/27/2018 Travel 12/26/2018 - Hospital Encounter Cardiology Ran Foster Arterial occlusion , lower extremity (HCC); 01/03/2019 MD Latrell Claudication (HCC); Otoniel Garcia MD Ischemic pain of foot at rest (HCC); 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); PVD (peripheral vascular disease) (HCC); Severe protein-calorie malnutrition (HCC); Thrombocytosis (HCC); Liver mass 12/10/2018 Abstract Hepatology Annika Sharma MA 12/04/2018 [...] Josafat Jama MD 03/04/2018 Surgery Isael Rocha / MD Horacio AORTOGRAM 03/02/2018 - Hospital Encounter Cardiology Carli Rodrigues Arterial occlusion , lower extremity (HCC) (Primary Dx); 03/07/2018 MD Addi Acute leg pain, right; Philippe Evans, Peripheral vascular disease (HCC); Skin ulcer of right foot, limited to breakdown of skin (HCC) Tony Valdes MD after 01/20/2018 Family History Medical History Relation Name Comments Cancer Mother throat cancer Relation Name Status Comments Mother Social History Tobacco Use Types Packs/Day Years Used Date Former Smoker 1 20 Quit: 09/23/2017 Smokeless Tobacco: Never Used Tobacco Cessation: Counseling Given: Yes Alcohol Use Drinks/Week oz/Week Comments No Alcohol Habits Answer Date Recorded How often do you have a drink containing alcohol? Never 12/26/2018 How many drinks containing alcohol do you have on a typical Not asked day when you are drinking? How often do you have six or more drinks on one occasion? Not asked Sex Assigned at Date Recorded Not on file Job Start Date Occupation Industry Not on file Not on file Not on file Travel History Travel Start Travel End No recent travel history available. Last Filed Vital Signs Vital Sign Reading Time Taken Blood Pressure 117/69 01/03/2019 12:14 PM CDT Pulse 80 01/03/2019 12:14 PM CDT Temperature 37.2 C (99 F) 01/03/2019 12:14 PM CDT Respiratory Rate 18 01/03/2019 12:14 PM CDT Oxygen Saturation 100% 01/03/2019 12:14 PM CDT Inhaled Oxygen Concentration - - Weight 48.5 kg (106 lb 15.5 oz) 01/02/2019 7:17 AM CDT Height 170.2 cm (5' 7") 12/26/2018 10:04 PM CDT Body Mass Index 16.75 01/02/2019 7:17 AM CDT Plan of Treatment Not on file Implants Implanted Type Area Systems Eng Device Identifier Shelf Model / Expiration Serial / Lot Date Grft Eptfe-Heparin Rng 3su14cr [id number] - [id number] Graft/P Right: ANGELA GORE & 05/12/2021 [id number] / Implanted: Qty: 1 on 09/25/2017 by Javi Urban MD [facility] Leg ASSC:MED PRDT [id number] / Synergy Stents- Left: [place] [id number] 12/24/2019 [id number] / Implanted: Qty: 1 on 03/04/2018 by Isael Rocha MD [employer] / y [id number] Stents- [employer] [id number] 09/19/2019 [id number] / Implanted: Qty: 1 on 03/04/2018 by Isael Rocha MD Periphe / ral [id number] Maquet Hemashield Gold Knitted Microvel Double Velour Vascular Graft 7mm X 30cm Right: [employer] 02/22/2022 [id number] / Implanted: Qty: 1 on 09/25/2017 by Javi Urban MD Leg [id number] / [id number] Nx CORDIS 12/24/2019 [id number] / Implanted: Qty: 1 on 12/31/2018 by Isael Rocha MD [facility] / [id number] Procedures Procedure Name Priority Date/Time Associated Comments Diagnosis RHYTHM STRIP - SCAN 01/07/2019 12:10 PM CDT CARDIAC CATH REPORT - 01/05/2019 7:52 SCAN AM CDT RHYTHM STRIP - SCAN 01/05/2019 7:52 AM CDT CARDIAC CATH REPORT - 01/05/2019 7:52 SCAN AM CDT CBC W/PLT COUNT & AUTO Routine 01/03/2019 4:16 Results for this DIFFERENTIAL AM CDT procedure are in the results section. HEPATIC FUNCTION PANEL Routine 01/03/2019 4:16 Results for this AM CDT procedure are in the results section. BASIC METABOLIC PANEL Routine 01/03/2019 4:16 Results for this (7) AM CDT procedure are in the results section. CBC W/PLT COUNT & AUTO Routine 01/03/2019 4:16 Results for this DIFFERENTIAL AM CDT procedure are in the results section. FIBRINOGEN Routine 01/03/2019 4:16 Results for this AM CDT procedure are in the results section. CBC W/PLT COUNT & AUTO Routine 01/02/2019 4:25 Results for this DIFFERENTIAL AM CDT procedure are in the results section. HEPATIC FUNCTION PANEL Routine 01/02/2019 4:25 Results for this AM CDT procedure are in the results section. BASIC METABOLIC PANEL Routine 01/02/2019 4:25 Results for this (7) AM CDT procedure are in the results section. CBC W/PLT COUNT & AUTO Routine 01/02/2019 4:25 Results for this DIFFERENTIAL AM CDT procedure are in the results section. CBC W/PLT COUNT & AUTO Routine 01/01/2019 4:15 Results for this DIFFERENTIAL AM CDT procedure are in the results section. HEPATIC FUNCTION PANEL Routine 01/01/2019 4:15 Results for this AM CDT procedure are in the results section. BASIC METABOLIC PANEL Routine 01/01/2019 4:15 Results for this (7) AM CDT procedure are in the results section. CBC W/PLT COUNT & AUTO Routine 01/01/2019 4:15 Results for this DIFFERENTIAL AM CDT procedure are in the results section. PERIPHERAL ANGIOS / 12/31/2018 4:45 Ischemia of right AORTOGRAM PM CDT lower extremity CBC W/PLT COUNT & AUTO Routine 12/31/2018 4:43 Results for this DIFFERENTIAL AM CDT procedure are in the results section. HEPATIC FUNCTION PANEL Routine 12/31/2018 4:43 Results for this AM CDT procedure are in the results section. BASIC METABOLIC PANEL Routine 12/31/2018 4:43 Results for this (7) AM CDT procedure are in the results section. CBC W/PLT COUNT & AUTO Routine 12/31/2018 4:43 Results for this DIFFERENTIAL AM CDT procedure are in the results section. PERIPHERAL VASCULAR 12/30/2018 9:22 REPORT - SCAN PM CDT ARTERIAL ([facility]'S W/ Routine 12/30/2018 10:18 Results for this DOPPLER) ONLY AM CDT procedure are in the results section. CBC W/PLT COUNT & AUTO Routine 12/30/2018 4:56 Results for this DIFFERENTIAL AM CDT procedure are in the results section. HEPATIC FUNCTION PANEL Routine 12/30/2018 4:56 Results for this AM CDT procedure are in the results section. BASIC METABOLIC PANEL Routine 12/30/2018 4:56 Results for this (7) AM CDT procedure are in the results section. CBC W/PLT COUNT & AUTO Routine 12/30/2018 4:56 Results for this DIFFERENTIAL AM CDT procedure are in the results section. JAK2 MUTATION (V617F) Routine 12/29/2018 5:00 Results for this QUANTITATIVE PM CDT procedure are in the results section. FERRITIN Routine 12/29/2018 5:00 Results for this PM CDT procedure are in the results section. IRON, TIBC, % SAT. Routine 12/29/2018 5:00 Results for this (WITHOUT FERRITIN) PM CDT procedure are in the results section. PERIPHERAL BLOOD SMEAR - Routine 12/29/2018 5:00 Results for this HOLD ONLY PM CDT procedure are in the results section. CT/CTA AAA AND RUNOFF Routine 12/29/2018 1:58 Results for this PM CDT procedure are in the results section. CBC W/PLT COUNT & AUTO Routine 12/29/2018 4:41 Results for this DIFFERENTIAL AM CDT procedure are in the results section. HEPATIC FUNCTION PANEL Routine 12/29/2018 4:41 Results for this AM CDT procedure are in the results section. BASIC METABOLIC PANEL Routine 12/29/2018 4:41 Results for this (7) AM CDT procedure are in the results section. CBC W/PLT COUNT & AUTO Routine 12/29/2018 4:41 Results for this DIFFERENTIAL AM CDT procedure are in the results section. VENOGRAM 12/28/2018 5:46 Limb ischemia PM CDT APTT Routine 12/28/2018 1:29 Results for this PM CDT procedure are in the results section. APTT Routine 12/28/2018 6:30 Results for this AM CDT procedure are in the results section. CBC W/PLT COUNT & AUTO Routine 12/28/2018 4:58 Results for this DIFFERENTIAL AM CDT procedure are in the results section. HEPATIC FUNCTION PANEL Routine 12/28/2018 4:58 Results for this AM CDT procedure are in the results section. BASIC METABOLIC PANEL Routine 12/28/2018 4:58 Results for this (7) AM CDT procedure are in the results section. CBC W/PLT COUNT & AUTO Routine 12/28/2018 4:58 Results for this DIFFERENTIAL AM CDT procedure are in the results section. APTT Routine 12/28/2018 12:38 Results for this AM CDT procedure are in the results section. APTT Routine 12/27/2018 5:39 Results for this PM CDT procedure are in the results section. APTT Routine 12/27/2018 10:39 Results for this AM CDT procedure are in the results section. CBC W/PLT COUNT & AUTO Routine 12/27/2018 4:31 Results for this DIFFERENTIAL AM CDT procedure are in the results section. APTT Routine 12/27/2018 4:31 Results for this AM CDT procedure are in the results section. PERIPHERAL BLOOD SMEAR - Routine 12/27/2018 4:31 Results for this HOLD ONLY AM CDT procedure are in the results section. HEPATIC FUNCTION PANEL Routine 12/27/2018 4:31 Results for this AM CDT procedure are in the results section. BASIC METABOLIC PANEL Routine 12/27/2018 4:31 Results for this (7) AM CDT procedure are in the results section. CBC W/PLT COUNT & AUTO Routine 12/27/2018 4:31 Results for this DIFFERENTIAL AM CDT procedure are in the results section. PT/APTT Routine 12/26/2018 8:37 Results for this PM CDT procedure are in the results section. REPORT OF PROCEDURE - 12/14/2018 3:05 ENDOSCOPY [...] unspecified vessel or lesion type, unspecified whether [place] or transplanted heart (HCC) Case Notes (3) [...] (7) STAT 03/02/2018 6:07 PM CDT after 01/20/2018 Results RHYTHM STRIP - SCAN (01/07/2019 12:10 PM CDT)Only the most recent of6 resultswithin the time period is included. Narrative Performed At CARDIAC CATH REPORT - SCAN (01/05/2019 7:52 AM CDT) Narrative Performed At CARDIAC CATH REPORT - SCAN (01/05/2019 7:52 AM CDT) Narrative Performed At CBC with platelet count + automated diff (01/03/2019 4:16 AM CDT)Only the most recent of21 resultswithin the time period is included. WBC 10.9 (H) 3.5 - 10.5 K/L [facility] RBC 2.96 (L) 4.63 - 6.08 M/L [facility] Hemoglobin 8.6 (L) 13.7 - 17.5 GM/DL [facility] Hematocrit 25.7 (L) 40.1 - 51.0 % [facility] MCV 86.8 79.0 - 92.2 fL [facility] MCH 29.1 25.7 - 32.2 pg [facility] MCHC 33.5 32.3 - 36.5 GM/DL [facility] RDW 15.1 (H) 11.6 - 14.4 % [facility] Platelets 671 (H) 150 - 450 K/CU MM [facility] MPV 9.4 9.4 - 12.4 fL [facility] nRBC 0 0 - 0 /100 WBC [facility] % Neutros 68 % [facility] % Lymphs 22 % [facility] % Monos 7 % [facility] % Eos 2 % [facility] % Baso 1 % [facility] # Neutros 7.43 (H) 1.78 - 5.38 K/L [facility] # Lymphs 2.40 1.32 - 3.57 K/L [facility] # Monos 0.75 0.30 - 0.82 K/L [facility] # Eos 0.23 0.04 - 0.54 K/L [facility] # Baso 0.05 0.01 - 0.08 K/L [facility] Immature Granulocytes-Relative 1 0 - 1 % [facility] Specimen Blood Performing Organization Address City/State/Zipcode Phone Number [address] [address] [place] Fibrinogen (01/03/2019 4:16 AM CDT) Fibrinogen 504 (H) 225 - 434 mg/dl [facility] Specimen Blood Performing Organization Address City/State/Zipcode Phone Number [address] [address] [phone] [place] Hepatic function panel (01/03/2019 4:16 AM CDT)Only the most recent of11 resultswithin the time period is included. Protein, Total 6.6 6.0 - 8.3 gm/dL [facility] Albumin 3.3 (L) 3.5 - 5.0 g/dL [facility] Total Bilirubin 0.6 0.2 - 1.2 mg/dL [facility] Bilirubin, Direct 0.5 0.1 - 0.5 mg/dL [facility] Alkaline Phosphatase 172 (H) 40 - 150 U/L [facility] AST 297 (H) 5 - 34 U/L [facility] ALT 177 (H) 6 - 55 U/L [facility] Specimen Blood Performing Organization Address City/[facility]/Zipcode Phone Number [facility] [address] [place] [address] [place] Basic metabolic panel (01/03/2019 4:16 AM CDT)Only the most recent of20 resultswithin the time period is included. Sodium 132 (L) 136 - 145 meq/L [facility] Potassium 4.0 3.5 - 5.1 meq/L [facility] Chloride 99 98 - 107 meq/L [facility] CO2 25 22 - 29 meq/L [facility] BUN 7 7 - 21 mg/dL [facility] Creatinine 0.75 0.57 - 1.25 mg/dL [facility] Glucose 93 70 - 105 mg/dL [facility] Calcium 8.8 8.4 - 10.2 mg/dL [facility] EGFR 130Comment: ESTIMATED GFR IS mL/min/1.73 sq m [facility] NOT ACCURATE CREATININE [facility] CLEARANCE IN PREDICTING GLOMERULAR FILTRATION RATE. ESTIMATED GFR IS NOT APPLICABLE FOR DIALYSIS PATIENTS. Specimen Blood Performing Organization Address City/State/Zipcode Phone Number [facility] [address] [place] [id number] [place] PERIPHERAL VASCULAR REPORT - SCAN (12/30/2018 9:22 PM CDT) Narrative Performed At [facility] Only(Ankle/Brachial Index) (12/30/2018 10:18 AM CDT)Only the most recent of2 resultswithin the time period is included. Ejection Fraction [facility] Specimen Impressions Performed At Right Impression [facility] 1. The posterior tibial artery is patent with monophasic Doppler waveforms and the dorsalis pedis artery Doppler signal is absent. 2. The PT pressure is 41 mmHg with an YOSVANY of 0.37 in the rest pain range and the DP pressure is not obtained due to absent Doppler signal. 3. The TBI could not be obtained. 4. The digits have no flow by PPG waveforms. Left Impression 1. The posterior tibial and dorsalis pedis arteries are patent with monophasic Doppler waveforms. 2. The PT pressure is 80 mmHg with an YOSVANY of 0.73 and the DP pressure is 79 mmHg with an YOSVANY of 0.72, in the moderate obstruction range. 3. The great toe pressure is 29 mmHg with an abnormal TBI of 0.26. 4. The digits have decreased flow by PPG waveforms. Conclusions Summary Arterial pressures and Doppler waveforms were performed bilaterally. Doppler waveforms were monophasic. The right PT YOSVANY was in the rest pain range and the DP was not obtained due to absent Doppler signal. The left YOSVANY's were within moderate obstruction range. The right TBI was not obtained due to absent signals. The left TBI was abnormal. The right digits had no flow by PPG waveforms. The left digits had decreased flow by PPG waveforms. Signature Velocities are measured in cm/s ; Diameters are measured in cm Narrative Performed At LAB - Lower Extremity Arterial Procedure [facility] Demographics Patient Name NATALIA JORGEDate of Study12/30/2018 NORAH [id number] Visit Number [id number] Gender Male Accession Number [id number] Date of Birth1960 ReferringOtoniel Garcia MD Room [id number] Physician SonographPaul Kamara RVT Interpreting Physician JuniorMD Procedure Type of Study: Extremities Arteries: Lower Extremity Arterial Procedure, ARTERIAL ([facility] W/DOPPLER) ONLY. Indications for Study:With toe pressures . Patient Status:Routine. Study Location:Vascular Lab. Technical Quality:Adequate visualization. Risk Factors History of Disease + +----+ + !Diagnosis!Date!Comments ! + +----+ + !History/Risk !!Claudication, HLD, HTN, PVD, Stroke, Right Femoral to! !Factors: !!Popliteal bypass graft, Right Femoral to Left Femoral! ! !!bypass graft ! + +----+ + Procedure Note Interface, External Ris In - 12/30/2018 11:57 AM CDT [facility] LAB - Lower Extremity Arterial Procedure Demographics Patient Name NATALIA JORGE Date of Study 12/30/2018 NORAH Age 58 Visit Number [id number] Gender Male Accession Number [id number] Date of 1960 Referring Otoniel Garcia MD Room Number [id number] Physician Striper Machine Josefa Kamara T Interpreting Denise Roldan, Physician Procedure Type of Study: Extremities Arteries: Lower Extremity Arterial Procedure, ARTERIAL ([facility]'S W/DOPPLER) ONLY. Indications for Study:With toe pressures . Patient Status:Routine. Study Location:Vascular Lab. Technical Quality:Adequate visualization. Risk Factors History of Disease + +----+ + !Diagnosis !Date!Comments ! + +----+ + !History/Risk ! !Claudication, HLD, HTN, PVD, Stroke, Right Femoral to! !Factors: ! !Popliteal bypass graft, Right Femoral to Left Femoral! ! ! !bypass graft ! + +----+ + Impressions Right Impression 1. The posterior tibial artery is patent with monophasic Doppler waveforms and the dorsalis pedis artery Doppler signal is absent. 2. The PT pressure is 41 mmHg with an YOSVANY of 0.37 in the rest pain range and the DP pressure is not obtained due to absent Doppler signal. 3. The TBI could not be obtained. 4. The digits have no flow by PPG waveforms. Left Impression 1. The posterior tibial and dorsalis pedis arteries are patent with monophasic Doppler waveforms. 2. The PT pressure is 80 mmHg with an YOSVANY of 0.73 and the DP pressure is 79 mmHg with an YOSVANY of 0.72, in the moderate obstruction range. 3. The great toe pressure is 29 mmHg with an abnormal TBI of 0.26. 4. The digits have decreased flow by PPG waveforms. Conclusions Summary Arterial pressures and Doppler waveforms were performed bilaterally. Doppler waveforms were monophasic. The right PT YOSVANY was in the rest pain range and the DP was not obtained due to absent Doppler signal. The left YOSVANY's were within moderate obstruction range. The right TBI was not obtained due to absent signals. The left TBI was abnormal. The right digits had no flow by PPG waveforms. The left digits had decreased flow by PPG waveforms. Signature Velocities are measured in cm/s ; Diameters are measured in cm Performing Organization Address City/State/Zipcode Phone Number [facility] JAK2 MUTATION (V617F) QUANTITATIVE (12/29/2018 5:00 PM CDT) CLINICAL INDICATION NOT GIVEN [facility] SPECIMEN SOURCE: NOT GIVEN [facility] Block/Specimen ID NOT GIVEN [facility] JAK2 V617F Mutation NOT DETECTED NOT DETECTED [facility] GENE DNR [facility] AMINO ACID DNR [facility] MUTATIONS/POLYMORPHISMS DNR [facility] Mutation Analysis DNR [facility] Exons 10,11,13-16 DNR [facility] NUCLEOTIDE CHANGE DNR [facility] References: DNR [facility] INTERPRETATION ([facility]) SEE BELOW [facility] Comment: INCORPORATED A JAK2 V617F mutation is not detected. This data was reviewed and interpreted by Conner Parada, PhD. LEXX(ABB) ASSAY DETAILS SEE BELOW [facility] Comment: INCORPORATED This PCR-based advanced sequencing assay interrogates DNA from leukocytes for the presence of mutations in codon 617 of JAK2. The sensitivity of mutation detection is 5%. Alterations outside of the tested areas of this gene will not be detected. Synonymous or known non-synonymous polymorphic changes (SNPs) are not reported. JAK2 V617F mutation is associated with myeloproliferative neoplasms (MPNs), including polycythemia vera (PV), essential thrombocythemia (ET) and primary myelofibrosis (PMF), and a small subset of other myeloid neoplasms. Increasing allele burden of JAK2 V617F in MPNs has been shown in a number of studies to be associated with increased symptoms including pruritis, splenomegaly, and leukocytosis. Results of this assay should be correlated with morphology and other laboratory testing for final diagnosis and classification. If this test is negative, additional testing that may be useful for workup of MPNs, depending on presenting hematologic features, includes BCR-ABL1 rearrangement (test code 28646 or 99631I) or mutational analysis of CALR (ET/PMF, 33995), JAK2 exon 12 (PV, 44841), MPL (ET/PMF, 58645) or CSF3R (chronic neutrophilic leukemia, 87942). Residual material from this sample may be used except for BCR-ABL1 testing; call lab to add. DNA was aligned to GRCh37(hg19) for analysis and transcript ID [id number] was used as reference for JAK2 sequence. For additional information, please refer to http://education.[employer]/faq/DPS433 (This link is being provided for informational/educational purposes only.) This test was developed and its analytical performance characteristics have been determined by [employer] [facility]. It has not been cleared or approved by FDA. This assay has been validated pursuant to the CLIA regulations and is used for clinical purposes. Specimen Blood Narrative Performed At Performing Lab [facility] [employer] [address] [place] [address] Rafa Gr MD, PhD, MARGARITA Performing Organization Address City/State/Zipcode Phone [place] [address] INCORPORATED [address] [employer] Peripheral Blood Smear - Hold only (12/29/2018 5:00 PM CDT)Only the most recent of2 resultswithin the time period is included. Peripheral Smear Save saved [facility] Specimen Blood Performing Organization Address City/State/Zipcode Phone Number [facility] [address], [place] [phone] CENTER Iron, TIBC, % sat. (without ferritin) (12/29/2018 5:00 PM CDT) Iron 27.0 (L) 40.0 - 160.0 ug/dL [facility] TIBC 294 250 - 450 ug/dL [facility] Iron % Saturation 9 (L) 20 - 55 % [facility] Specimen Blood Performing Organization Address City/[facility]/Zipcode Phone Number [address] [address] CENTER Ferritin (12/29/2018 5:00 PM CDT) Ferritin 1,372 (H) 5 - 275 ng/mL [facility] Specimen Blood Performing Organization Address City/[facility]/Zipcode Phone Number [facility] [address] [place] [address] CENTER CTA AAA and Runoff (12/29/2018 1:58 PM CDT)Only the most recent of2 resultswithin the time period is included. Specimen Narrative Performed At Addendum Begins [employer] [facility] REPORT STATUS:A Addendum: December 29, 2018 at 1845 hours I have reviewed the CT images for this study and I concur with the nonvascular imaging findings as dictated. Abnormal mass lesions are identified in segments 2, 3, 4 and 5 of the liver, as described on MRI of the liver performed December 06, 2018. Findings are worrisome for multifocal hepatocellular carcinoma. Please refer to this study for a full description of these findings. Signed: Carli Cedillo MD Report Verified Date/Time:12/29/2018 18:44:42 Reading Location: [facility] P048 Angio Body Reading Room Addendum Ends FINAL REPORT CT angiography of the abdominal aorta and runoff, Jan 11 INDICATION: This is a 58 year old male with a diagnosis of claudication presents for assessment for potential revascularisation. This study is performed in an attempt to avoid an invasive procedure. TECHNIQUE: Spiral acquisition before and during intravenous contrast administration using a Siemens CT scanner. Images were obtained before and during the dynamic passage of intravenous contrast material.Multi-planar 3-D volume-rendering reconstruction was performed using an independent workstation interactively by the interpreting physician as well as the 3-D specialist for optimal visualisation of the abdominal aorta, pelvic arteries, and its proximal branches. Please refer to the contrast sheet scanned in the EPIC system for the amount and route of [...] as low as reasonably achievable. FINDINGS: VASCULAR: There is a mixed of calcific and noncalcific atherosclerosis identified in the abdominal aorta, with no ectasia or aneurysmal dilation present. There is no evidence of acute aortic pathology, specifically, there is no dissection, intramural hematoma, or contained rupture. Quantitative dimensions of the abdominal aorta are as follows: 1.9 cm at the mesenteric segment; 1.3 cm at the renal segment,; and 2.1 cm at the aortic bifurcation. Stenosis is seen in the proximal coeliac axis that could be due to the effect of the median arcuate ligament. The SMA is widely patent. The KITTY is patent. In the left and right renal arteries are seen that are widely patent. Single left and right renal veins are seen draining normally into the IVC. Moderate diffuse calcification identified in the left common iliac artery. In any case, the left external iliac artery is occluded, extending into part of the left common femoral artery. In the right, moderate calcification is identified in the right common iliac artery, minimum luminal diameter is still 5 x 6 mm suggesting no significant obstructive lesion is present. The right external iliac artery also has moderate diffuse calcification identified. At image 202, at the mid level, mixture of calcific and noncalcific atherosclerosis identified and minimum luminal diameter is 3.4 x 5.5 mm. Remainder of the right external iliac artery and the right common femoral artery are widely patent. A Femoral to femoral bypass graft is identified and this graft is well enhanced by contrast. The left anastomotic site is unremarkable. The right anastomotic site is also unremarkable, however, the right anastomotic site is seen to connect to a right femoral to popliteal bypass and this bypass graft is occluded after the proximal 1.5 cm. In the right, the [place] right SFA is occluded. The right profunda system is patent. A femoral to popliteal bypass of is identified and the graft is essentially occluded. The [place] right popliteal artery is not enhanced by contrast indicating occlusion. In the right lower extremity, the right tibioperoneal trunk is not well appreciated. Whilst the origin of the right anterior tibial artery is not identified, remainder of the the right anterior tibial artery is widely patent. The origin of the dorsalis pedis artery is calcified. The right peroneal artery is a small calibre vessel though is still enhanced by contrast at the level of the ankle. The origin of the right posterior tibial artery is not identified. Remainder the right posterior to the artery is widely patent and plantar arch is seen distally. In the left, the left SFA is essentially occluded. The left profunda system is patent. Calcification is identified in the proximal left popliteal artery, though just above the left knee joint, the left popliteal artery is well enhanced by contrast, however, there is also various focal calcification identified, for example at the level of the left knee joint, at image 536 and 545, making accurate assessment limited at these level. In the left lower extremity, the left and right parietal is patent. The left anterior and posterior tibial arteries are patent, and the plantar arch is well seen distally. The dorsalis pedis artery only have limited enhancement. The left peroneal artery is a small calibre vessel though is still well enhanced by contrast on the level of the ankle. NON-VASCULAR:- The lung bases are unremarkable. No pleural effusion is identified. No acute pathology is identified in the liver and the spleen. However, there is enhancement identified in the left hepatic lobe and also involving much of the right hepatic lobe, of uncertain significance that could be due to perfusion phenomena and. An addendum will be dictated thereafter. Of note, the recent CT scan 2 weeks ago also described abnormality seen in the liver. The gallbladder appears unremarkable. The adrenal glands [...] seen in the abdomen and pelvis. The bladder is distended. The prostate gland is prominent. No significant retroperitoneal adenopathy is identified. In the bony windows, no acute bony pathology is identified. CONCLUSION: 1.Atherosclerosis is is identified in the abdominal aorta, though no acute pathology is present. No ectasia or aneurysmal dilation is noted. There is no evidence of acute aortic pathology, specifically, there is no dissection, intramural hematoma, or contained rupture. Quantitative dimension of the abdominal aorta are as noted. 2.The left external iliac artery and much of the left common femoral arteries are occluded. Moderate calcification is seen in the patent left common iliac artery. There is moderate calcification seen in the right common iliac and the right external iliac artery. Minimum luminal diameter of the right external iliac artery is approximately 3 x 5 mm. Right common femoral artery is patent. A femoral to femoral bypass graft is identified and this graft is widely patent, and as described above, the left external yearly at artery is occluded and the left SFA is also occluded. On review of prior examination one year ago, the anastomotic site of the right femoral to femoral bypass graft is seen to connect to the right common femoral artery and it is widely patent. However, there is interval placement of a short stent identified in the [place] right SFA and the most proximal margin of the stent is at the level of the anastomotic site making assessment of the patency at this level limited. In other words, there could be difficult to be in using the femoral approach, since the left external iliac artery is not patent, and now there is a stent in the proximal right SFA, with the proximal margin right at the location of the anastomotic site of the femoral to femoral bypass graft. 3. The left SFA is essentially occluded. Diffuse calcification identified in the proximal left popliteal artery and remainder of the artery is enhanced by contrast though there is still focal calcifications present at the level of the left knee joint. 4.A short stent is present in the proximal right SFA, the right SFA is occluded. The right femoral to popliteal bypass graft is also occluded. Much of the right popliteal artery is also occluded. 5.Details of the runoff vessels as described above. 6.Other findings as described above, specifically, there diffuse patchy enhancement in much of the liver, that was not present in 2018 examination.An addendum will be dictated thereafter, if further dedicated liver imaging is required. However, patient already had a MRI in November 2018, and the MR report stated the presence of multifocal hepatocellular carcinoma. 7.An addendum will be dictated regarding the non-vascular findings by the Plasterer Spot Radiologist. Signed: Shawn Restrepo MD Report Verified Date/Time:12/29/2018 14:49:55 Reading Location: [place] [address] Cardiology MRI Procedure Note Interface, External Ris In - 12/29/2018 6:46 PM CDT Addendum Begins REPORT STATUS:A Addendum: December 29, 2018 at 1845 hours I have reviewed the CT images for this study and I concur with the nonvascular imaging findings as dictated. Abnormal mass lesions are identified in segments 2, 3, 4 and 5 of the liver, as described on MRI of the liver performed December 06, 2018. Findings are worrisome for multifocal hepatocellular carcinoma. Please refer to this study for a full description of these findings. Signed: Carli Cedillo MD Report Verified Date/Time: 12/29/2018 18:44:42 Reading Location: [place] [address] Angio Body Reading Room Addendum Ends FINAL REPORT CT angiography of the abdominal aorta and runoff, Jan 11 INDICATION: This is a 58 year old male with a diagnosis of claudication presents for assessment for potential revascularisation. This study is performed in an attempt to avoid an invasive procedure. TECHNIQUE: Spiral acquisition before and during intravenous contrast administration using a Siemens CT scanner. Images were obtained before and during the dynamic passage of intravenous contrast material. Multi-planar 3-D volume-rendering reconstruction was performed using an independent workstation interactively by the interpreting physician as well as the 3-D specialist for optimal visualisation of the abdominal aorta, pelvic arteries, and its proximal branches. Please refer to the contrast sheet scanned in the EPIC system for the amount and route of [...] as low as reasonably achievable. FINDINGS: VASCULAR: There is a mixed of calcific and noncalcific atherosclerosis identified in the abdominal aorta, with no ectasia or aneurysmal dilation present. There is no evidence of acute aortic pathology, specifically, there is no dissection, intramural hematoma, or contained rupture. Quantitative dimensions of the abdominal aorta are as follows: 1.9 cm at the mesenteric segment; 1.3 cm at the renal segment,; and 2.1 cm at the aortic bifurcation. Stenosis is seen in the proximal coeliac axis that could be due to the effect of the median arcuate ligament. The SMA is widely patent. The KITTY is patent. In the left and right renal arteries are seen that are widely patent. Single left and right renal veins are seen draining normally into the IVC. Moderate diffuse calcification identified in the left common iliac artery. In any case, the left external iliac artery is occluded, extending into part of the left common femoral artery. In the right, moderate calcification is identified in the right common iliac artery, minimum luminal diameter is still 5 x 6 mm suggesting no significant obstructive lesion is present. The right external iliac artery also has moderate diffuse calcification identified. At image 202, at the mid level, mixture of calcific and noncalcific atherosclerosis identified and minimum luminal diameter is 3.4 x 5.5 mm. Remainder of the right external iliac artery and the right common femoral artery are widely patent. A Femoral to femoral bypass graft is identified and this graft is well enhanced by contrast. The left anastomotic site is unremarkable. The right anastomotic site is also unremarkable, however, the right anastomotic site is seen to connect to a right femoral to popliteal bypass and this bypass graft is occluded after the proximal 1.5 cm. In the right, the [place] right SFA is occluded. The right profunda system is patent. A femoral to popliteal bypass of is identified and the graft is essentially occluded. The [place] right popliteal artery is not enhanced by contrast indicating occlusion. In the right lower extremity, the right tibioperoneal trunk is not well appreciated. Whilst the origin of the right anterior tibial artery is not identified, remainder of the the right anterior tibial artery is widely patent. The origin of the dorsalis pedis artery is calcified. The right peroneal artery is a small calibre vessel though is still enhanced by contrast at the level of the ankle. The origin of the right posterior tibial artery is not identified. Remainder the right posterior to the artery is widely patent and plantar arch is seen distally. In the left, the left SFA is essentially occluded. The left profunda system is patent. Calcification is identified in the proximal left popliteal artery, though just above the left knee joint, the left popliteal artery is well enhanced by contrast, however, there is also various focal calcification identified, for example at the level of the left knee joint, at image 536 and 545, making accurate assessment limited at these level. In the left lower extremity, the left and right parietal is patent. The left anterior and posterior tibial arteries are patent, and the plantar arch is well seen distally. The dorsalis pedis artery only have limited enhancement. The left peroneal artery is a small calibre vessel though is still well enhanced by contrast on the level of the ankle. NON-VASCULAR:- The lung bases are unremarkable. No pleural effusion is identified. No acute pathology is identified in the liver and the spleen. However, there is enhancement identified in the left hepatic lobe and also involving much of the right hepatic lobe, of uncertain significance that could be due to perfusion phenomena and. An addendum will be dictated thereafter. Of note, the recent CT scan 2 weeks ago also described abnormality seen in the liver. The gallbladder appears unremarkable. The adrenal glands [...] seen in the abdomen and pelvis. The bladder is distended. The prostate gland is prominent. No significant retroperitoneal adenopathy is identified. In the bony windows, no acute bony pathology is identified. CONCLUSION: 1. Atherosclerosis is is identified in the abdominal aorta, though no acute pathology is present. No ectasia or aneurysmal dilation is noted. There is no evidence of acute aortic pathology, specifically, there is no dissection, intramural hematoma, or contained rupture. Quantitative dimension of the abdominal aorta are as noted. 2. The left external iliac artery and much of the left common femoral arteries are occluded. Moderate calcification is seen in the patent left common iliac artery. There is moderate calcification seen in the right common iliac and the right external iliac artery. Minimum luminal diameter of the right external iliac artery is approximately 3 x 5 mm. Right common femoral artery is patent. A femoral to femoral bypass graft is identified and this graft is widely patent, and as described above, the left external yearly at artery is occluded and the left SFA is also occluded. On review of prior examination one year ago, the anastomotic site of the right femoral to femoral bypass graft is seen to connect to the right common femoral artery and it is widely patent. However, there is interval placement of a short stent identified in the [place] right SFA and the most proximal margin of the stent is at the level of the anastomotic site making assessment of the patency at this level limited. In other words, there could be difficult to be in using the femoral approach, since the left external iliac artery is not patent, and now there is a stent in the proximal right SFA, with the proximal margin right at the location of the anastomotic site of the femoral to femoral bypass graft. 3. The left SFA is essentially occluded. Diffuse calcification identified in the proximal left popliteal artery and remainder of the artery is enhanced by contrast though there is still focal calcifications present at the level of the left knee joint. 4. A short stent is present in the proximal right SFA, the right SFA is occluded. The right femoral to popliteal bypass graft is also occluded. Much of the right popliteal artery is also occluded. 5. Details of the runoff vessels as described above. 6. Other findings as described above, specifically, there diffuse patchy enhancement in much of the liver, that was not present in 2018 examination. An addendum will be dictated thereafter, if further dedicated liver imaging is required. However, patient already had a MRI in November 2018, and the MR report stated the presence of multifocal hepatocellular carcinoma. 7. An addendum will be dictated regarding the non-vascular findings by the Plasterer Spot Radiologist. Signed: Shawn Restrepo MD Report Verified Date/Time: 12/29/2018 14:49:55 Reading Location: [place] [address] Cardiology MRI Performing Organization Address City/State/Zipcode Phone Number GE RIS aPTT (12/28/2018 1:29 PM CDT)Only the most recent of19 resultswithin the time period is included. PTT 95.9 (H) 22.5 - 36.0 seconds [facility] Specimen Blood Performing Organization Address City/State/Zipcode Phone Number [facility] [address] [place] [address] CENTER PT/aPTT (12/26/2018 8:37 PM CDT)Only the most recent of5 resultswithin the time period is included. Protime 13.6 11.9 - 14.2 seconds [facility] INR 1.1 <=5.9 [facility] PTT 54.0 (H) 22.5 - 36.0 seconds [facility] Specimen Blood Narrative Performed At Effective 10/21/2018: PT Reference Range [facility] Change New: 11.9-14.2Previous: 11.7-14.7 RECOMMENDED COUMADIN/WARFARIN INR THERAPY RANGES STANDARD DOSE: 2.0-3.0Includes: PROPHYLAXIS for venous thrombosis, systemic embolization; TREATMENT for venous thrombosis and/or pulmonary embolus. HIGH RISK: Target INR is 2.5-3.5 for patients wiht mechanical heart valves. Performing Organization Address [facility] Phone Number [address] [address] [place] EKG-SCANNED (12/14/2018 3:05 PM CDT) Narrative Performed At Sputum Culture + Gram Stain (12/11/2018 12:30 AM CDT) Result 4+ Normal respiratory yael [facility] Gram Stain Result 2+ White blood cells seen [facility] Gram Stain Result 10-15 epithelial cells [facility] Gram Stain Result 3+ gram positive rods [facility] Gram Stain Result 3+ gram positive cocci in [facility] chains, pairs and clusters [facility] [place] Specimen Sputum - Expectorated Performing Organization Address City/State/Zipcode Phone Number [place] [phone] [place] [address] [place] Urinalysis w/Microscopic + Reflex to Culture (12/10/2018 8:27 PM CDT) Color, UA Yellow [facility] Clarity, UA Clear [facility] Specific [place], UA 1.009 1.001 - 1.035 [facility] pH, UA 7.0 5.0 - 8.0 [facility] Protein, UA Negative Negative [facility] Glucose, UA Negative Negative [facility] Ketones, UA Negative Negative [facility] Bilirubin, UA Negative Negative [facility] Blood, UA Negative Negative [facility] Nitrite, UA Negative Negative [facility] Leukocytes, UA Large (A) Negative [facility] Urobilinogen, UA 8.0 (H) 0.2 - 1.0 mg/dL [facility] RBC, UA 1 /HPF [facility] WBC, UA 18 /HPF [facility] Squam Epithel, UA <1 /HPF [facility] Specimen Source [facility] Specimen Urine Performing Organization Address City/State/Zipcode Phone Number [address] [address] [place] Urine culture (12/10/2018 8:27 PM CDT) Result No growth [facility] Specimen Urine Performing Organization Address City/State/Zipcode Phone Number [address] [address] [place] Respiratory Panel [facility] (12/10/2018 3:54 PM CDT) Human Metapneumovirus Not detected Not detected, [facility] Rhinovirus Not detected Not detected, [facility] Influenza A Not detected Not detected, [facility] [facility] INFLUENZA A (NO SUBTYPE) Not detected, [facility] Influenza A subtype H1 Not detected, [facility] Influenza A Subtype H3 Not detected, [facility] Influenza A Subtype H1-2009 Not detected, [facility] Influenza B Not detected Not detected, [facility] Respiratory Syncytial Virus Not detected Not detected, [facility] Parainfluenza Virus 1 Not detected Not detected, [facility] Parainfluenza Virus 2 Not detected Not detected, [facility] Parainfluenza virus 3 Not detected Not detected, [facility] Parainfluenza Virus 4 Not detected Not detected, [facility] Adenovirus Not detected Not detected, [facility] Coronavirus 229E Not detected Not detected, [facility] Coronavirus HKU1 Not detected Not detected, [facility] Coronavirus NL63 Not detected Not detected, [facility] Coronavirus OC43 Not detected Not detected, [facility] Bordetella Pertussis Not detected Not detected, [facility] Chlamydophila Pneumoniae Not detected Not detected, [facility] Mycoplasma Pneumoniae Not detected Not detected, [facility] Specimen Nasopharyngeal Narrative Performed At Other viruses and bacteria not targeted by [facility] this PCR panel cannot be excluded; therefore clinical correlation and follow up of serology, culture results, and other molecular studies is required. The results are not intended to be used as the sole means for clinical diagnosis or patient management decisions. This sample was tested at the [facility] using the [employer] Media[employer] Respiratory Panel. It is FDA cleared and has been verified and approved by the [facility] for clinical use on nasopharyngeal swab specimens. The performance of the FilmArray RP has not been established in individuals who received influenza vaccine.Recent administration of a nasal influenza vaccine may cause false positive results for Influenza A and/or Influenza B. Performing Organization Address City/State/Zipcode Phone Number [place] [id number] [place] [address] CENTER Blood Culture - Routine (Left Venipuncture) (12/10/2018 3:54 PM CDT)Only the most recent of5 resultswithin the time period is included. Result No growth in 5 days [facility] Specimen Blood Performing Organization Address [facility] Phone Number [place] [id number] [place], [place] [id number] [phone] CENTER XR chest 1 view portable / [...] MD Report Verified Date/Time:12/10/2018 13:42:21 Reading Location: [facility] Reading Room Procedure Note Interface, External Ris In - 12/10/2018 1:44 PM CDT FINAL REPORT TECHNIQUE: Frontal chest radiograph dated 12/10/2018. CLINICAL HISTORY: Fever COMPARISON STUDY: Chest radiograph dated 09/25/2017 IMPRESSION: Lungs are clear. No pleural effusion or pneumothorax. Cardiomediastinal silhouette is normal in size. No pulmonary edema. No fracture. Signed: Shantanu Ryan MD Report Verified Date/Time: 12/10/2018 13:42:21 Reading Location: [facility] Reading Room Performing Organization Address City/State/Zipcode Phone Number [employer] CT chest with IV contrast (12/07/2018 9:47 PM CDT) Specimen Narrative Performed At FINAL REPORT [employer] EXAMINATION: Chest CT with IV contrast. CLINICAL [...] MD Report Verified Date/Time:12/08/2018 04:21:30 Reading Location: [address] Reading Room Procedure Note Interface, External [...] Report Verified Date/Time: 12/08/2018 04:21:30 Reading Location: [address] Reading Room Performing Organization Address City/State/Zipcode Phone Number [employer] MR abdomen without & with IV contrast (12/06/2018 8:48 AM CDT) Specimen Narrative Performed At FINAL REPORT [employer] MRI of the abdomen dated December 06, [...] MD Report Verified Date/Time:12/06/2018 10:49:29 Reading Location: [facility] Body Reading Room Procedure Note Interface, [...] Report Verified Date/Time: 12/06/2018 10:49:29 Reading Location: [facility] B1 C013Y CT Body Reading Room Performing Organization Address City/State/Zipcode Phone Number [facility] Carbohydrate antigen 19-9 (CA 19-9) (12/06/2018 8:22 AM CDT) CA 19-9 <3 <34 U/mL [employer] Comment: This test was performed using the Siemens Chemiluminescent method. Values obtained from different assay methods cannot be used interchangeably. CA19-9 levels, regardless of value, should not be interpreted as absolute evidence of the presence or absence of disease. Specimen Blood Narrative Performed At Performing Lab [facility] [address] [address] Rafa Gr MD, PhD, MARGARITA Performing Organization Address [facility] Phone Number [place] [address] [place] [address] Carcinoembryonic Antigen (CEA) (12/06/2018 5:42 AM CDT) CEA, SERUM 0.7 0.0 - 5.0 ng/mL [facility] Specimen Blood Performing Organization Address [facility] Phone Number [address] [address] [phone] [place] Hepatitis C PCR, Quantitative (12/05/2018 11:27 AM CDT) HCV PCR, Quantitative HCV RNA not detected HCV RNA not detected [facility] Specimen Blood Narrative Performed At This test uses a Real-Time Polymerase Chain [facility] Reaction (RT-PCR) methodology and was performed using DAVID Ampliprep/DAVID TaqMan HCV test kit version 2.0 ([employer]). Reportable range for this assay is 15 - 100,000,000 IU per mL (1.18 - 8.00 Log IU/mL). Performing Organization Address [facility] Phone Number [address] [address] [phone] [place] Hepatitis panel, acute (12/05/2018 5:19 AM CDT) Hep A IgM Nonreactive Nonreactive [facility] Hep B C IgM Nonreactive Nonreactive [facility] Hepatitis C Ab Reactive (A) Nonreactive [facility] hepatitis B Surface Ag Nonreactive Nonreactive [facility] Specimen Blood Performing Organization Address City/State/Zipcode Phone Number [facility] [address] [place] [address] [place] Magnesium (12/05/2018 5:19 AM CDT) Magnesium 2.1 1.6 - 2.6 mg/dL [facility] Specimen Blood Performing Organization Address City/[facility]/Zipcode Phone Number [facility] [address] [place] [address] [phone] [place] Comprehensive metabolic panel (12/05/2018 5:19 AM CDT) Protein, Total 7.2 6.0 - 8.3 gm/dL [facility] Albumin 3.8 3.5 - 5.0 g/dL [facility] Alkaline Phosphatase 148 40 - 150 U/L [facility] Total Bilirubin 0.3 0.2 - 1.2 mg/dL [facility] Sodium 131 (L) 136 - 145 meq/L [facility] Potassium 4.0 3.5 - 5.1 meq/L [facility] Chloride 100 98 - 107 meq/L [facility] CO2 24 22 - 29 meq/L [facility] BUN 12 7 - 21 mg/dL [facility] Creatinine 0.91 0.57 - 1.25 mg/dL [facility] Glucose 98 70 - 105 mg/dL [facility] Calcium 8.9 8.4 - 10.2 mg/dL [facility] AST 135 (H) 5 - 34 U/L [facility] ALT 81 (H) 6 - 55 U/L [facility] EGFR 104Comment: ESTIMATED mL/min/1.73 sq m [facility] GFR IS NOT ACCURATE [facility] CREATININE CLEARANCE IN PREDICTING GLOMERULAR FILTRATION RATE. ESTIMATED GFR IS NOT APPLICABLE FOR DIALYSIS PATIENTS. Specimen Blood Performing Organization Address [facility] Phone Number [address] [address] [phone] CENTER Alpha fetoprotein (AFP), tumor marker (12/04/2018 9:32 PM CDT) Alpha-Fetoprotein >04309.0 (H) <10.0 ng/mL [facility] Specimen Blood Performing Organization Address [facility] Phone Number [address] [address] [phone] [place] CARDIAC CATH REPORT - SCAN (03/10/2018 12:01 PM CDT) Narrative Performed At TRANSFUSION SERVICE REPORT - SCAN (03/04/2018 6:00 PM CDT) Narrative Performed At POC ACTIVATED CLOTTING TIME (03/04/2018 3:45 PM CDT) Activated Clotting Time 269Comment: TESTED AT sec [facility] [address] [place] [id number] Specimen Blood Performing Organization Address [facility] Phone Number [address] [address] CENTER Type and screen, automated (03/03/2018 2:39 PM CDT) ABO/RH AUTOMATED (BEAKER) A POSITIVE [facility] Ab Scrn NEGATIVE [facility] Specimen Blood Performing Organization Address [facility] Phone Number [address] [address] [phone] XR foot 3 views right (03/03/2018 7:03 AM CDT) Specimen Narrative Performed At FINAL REPORT [facility] TECHNIQUE: Frontal, lateral, and oblique radiographs of [...] MD Report Verified Date/Time:03/03/2018 08:43:54 Reading Location: [facility] Radiology Reading Room Procedure Note [...] Report Verified Date/Time: 03/03/2018 08:43:54 Reading Location: [facility] Radiology Reading Room Performing Organization Address City/State/Zipcode Phone Number [facility] Arterial doppler leg, right (03/02/2018 9:28 PM CDT) Ejection Fraction [facility] Specimen Impressions Performed At Right Impression [facility] 1. The right [...] PT pressure is 70 mmHg with an YSOVANY of 0.61 and the DP pressure is [...] + + + + + + !Prox WRAPPER STEMMER OPERATOR ! !18.6 !! ! + + + + + + !Mid WRAPPER STEMMER OPERATOR ! !21.7 !! ! + + + + + + !Dist WRAPPER STEMMER OPERATOR ! !30.9 !! ! + + + [...] At LAB - Lower Extremity Arterial Duplex [facility] Demographics Patient NATALIA Trejo Date of Study 03/02/2018 NORAH 57 Visit [id number] Male of 1960 Number Referring Ravi EllisRoom Number [id number] Physician Striper Machine Luis Carlos VarnerterpretingJon Ramirez, Physician , CITLALI Procedure Type of [...] Study 03/02/2018 NORAH Age 57 Visit Number [id number] Gender Male Date of 1960 Number Referring Ravi Ellisrt Room Number [id number] Physician Striper Machine Luis Carlos Villalta Interpreting Jon Ramirez, Physician , CITLALI Procedure [...] + + + -------+ + + !Prox WRAPPER STEMMER OPERATOR ! !18.6 ! ! ! + + + -------+ + + !Mid WRAPPER STEMMER OPERATOR ! !21.7 ! ! ! + + + -------+ + + !Dist WRAPPER STEMMER OPERATOR ! !30.9 ! ! ! + + [...] + Performing Organization Address City/State/Zipcode Phone Number [facility] Venous doppler leg, right (03/02/2018 8:00 PM CDT) Ejection Fraction [facility] Specimen Impressions Performed At Right Impression [facility] 1. There is no deep venous [...] PV LAB - Lower Extremities DVT Study [facility] Demographics Patient NATALIA Trejo Date of Study 03/02/2018 NORAH 57 Visit [id number] Male of 1960 Number [facility] Number [id number] Physician Striper Machine Marlee Gallagher T InterpretingJon Ramirez Physician , [...] Study 03/02/2018 NORAH Age 57 Visit Number [id number] Gender Male Date of 1960 Number Referring Rvai Fontana Room Number 1035 Physician Striper Machine Marlee Gallagher T Interpreting Jon Ramirez, Physician [...] are measured in cm Performing Organization Address City/[facility] Phone Number [facility] C-Reactive Protein (03/02/2018 6:07 PM CDT) CRP 0.04 0.00 - 0.50 mg/dL [facility] Specimen Blood Performing Organization Address City/[facility]/Zipcode Phone Number [facility] [address] [place] [address] CENTER after 01/20/2018 Advance Directives For more information, please contact:[address] [phone] Code Status Date Activated Date Inactivated Comments Full Code 12/26/2018 9:39 PM 01/03/2019 3:51 PM This code status was determined by: Patient Full Code 12/04/2018 8:56 PM 12/11/2018 8:53 [...]
--- OUTSIDE RECORDS SUMMARY | 2019-01-21 11:39 | XMS REPORT ---
:1960 Author Organization [facility] Address [facility] [address] [place] [address] Care Team Providers Name Role Phone TEJ MADDIE VEGA Unavailable Unavailable KAREN HOUSE Unavailable Unavailable CARLI WAN Unavailable Unavailable GRETA URBAN Unavailable Unavailable Problems This patient has no known problems. Allergies, Adverse Reactions, Alerts This patient has no known allergies or adverse reactions. Medications This patient has no known medications. Results Test Description Test Time Test Comments Text Results Atomic Results Result Comments FIBRINOGEN 2019-01-03 05:39:00 Test Item Value Reference Range Comments FIBRINOGEN LEVEL (BEAKER) (test glbr=400) 504 mg/dl 225-434 HEPATIC FUNCTION [id number] 05:12:00 Test Item Value Reference Range Comments TOTAL PROTEIN (BEAKER) (test xwzs=705) 6.6 gm/dL 6.0-8.3 ALBUMIN (BEAKER) (test rijf=0352) 3.3 g/dL 3.5-5.0 BILIRUBIN TOTAL (BEAKER) (test sqli=418) 0.6 mg/dL 0.2-1.2 BILIRUBIN DIRECT (BEAKER) (test dudy=197) 0.5 mg/dL 0.1-0.5 ALKALINE PHOSPHATASE (BEAKER) (test wfuk=555) 172 U/L 40-150 AST (SGOT) (BEAKER) (test dkhm=127) 297 U/L 5-34 ALT (SGPT) (BEAKER) (test oecy=511) 177 U/L 6-55 BASIC METABOLIC [id number] 05:12:00 Test Item Value Reference Range Comments SODIUM (BEAKER) (test 132 meq/L 136-145 roui=151) POTASSIUM (BEAKER) (test 4.0 meq/L 3.5-5.1 iozg=311) CHLORIDE (BEAKER) (test 99 meq/L 98-107 gimr=714) CO2 (BEAKER) (test 25 meq/L 22-29 jnvh=637) BLOOD UREA NITROGEN 7 mg/dL 7-21 (BEAKER) (test mkbs=608) CREATININE (BEAKER) (test 0.75 mg/dL 0.57-1.25 hpfs=557) GLUCOSE RANDOM (BEAKER) 93 mg/dL 70-105 (test iplq=189) CALCIUM (BEAKER) (test 8.8 mg/dL 8.4-10.2 lrtv=555) EGFR (BEAKER) (test 130 mL/min/1.73 sq m ESTIMATED GFR IS NOT czgc=6677) ACCURATE CREATININE CLEARANCE IN PREDICTING GLOMERULAR FILTRATION RATE. ESTIMATED GFR IS NOT APPLICABLE FOR DIALYSIS PATIENTS. CBC W/PLT COUNT & AUTO [id number] 05:00:00 Test Item Value Reference Range Comments WHITE BLOOD CELL COUNT (BEAKER) (test wzra=474) 10.9 K/ L 3.5-10.5 RED BLOOD CELL COUNT (BEAKER) (test gaha=230) 2.96 M/ L 4.63-6.08 HEMOGLOBIN (BEAKER) (test ughr=976) 8.6 GM/DL 13.7-17.5 HEMATOCRIT (BEAKER) (test kqls=180) 25.7 % 40.1-51.0 MEAN CORPUSCULAR VOLUME (BEAKER) (test ojjn=479) 86.8 fL 79.0-92.2 MEAN CORPUSCULAR HEMOGLOBIN (BEAKER) (test 29.1 pg 25.7-32.2 tvuv=139) MEAN CORPUSCULAR HEMOGLOBIN CONC (BEAKER) (test 33.5 GM/DL 32.3-36.5 blqe=426) RED CELL DISTRIBUTION WIDTH (BEAKER) (test 15.1 % 11.6-14.4 lqws=390) PLATELET COUNT (BEAKER) (test axur=182) 671 K/CU MM 150-450 MEAN PLATELET VOLUME (BEAKER) (test wxqj=632) 9.4 fL 9.4-12.4 NUCLEATED RED BLOOD CELLS (BEAKER) (test 0 /100 WBC 0-0 hdso=994) NEUTROPHILS RELATIVE PERCENT (BEAKER) (test 68 % eeor=009) LYMPHOCYTES RELATIVE PERCENT (BEAKER) (test 22 % iviv=539) MONOCYTES RELATIVE PERCENT (BEAKER) (test 7 % tbyf=311) EOSINOPHILS RELATIVE PERCENT (BEAKER) (test 2 % bvpc=794) BASOPHILS RELATIVE PERCENT (BEAKER) (test 1 % ymvv=736) NEUTROPHILS ABSOLUTE COUNT (BEAKER) (test 7.43 K/ L 1.78-5.38 afom=144) LYMPHOCYTES ABSOLUTE COUNT (BEAKER) (test 2.40 K/ L 1.32-3.57 ulhc=135) MONOCYTES ABSOLUTE COUNT (BEAKER) (test 0.75 K/ L 0.30-0.82 mjma=903) EOSINOPHILS ABSOLUTE COUNT (BEAKER) (test 0.23 K/ L 0.04-0.54 snfw=245) BASOPHILS ABSOLUTE COUNT (BEAKER) (test 0.05 K/ L 0.01-0.08 dxxw=253) IMMATURE GRANULOCYTES-RELATIVE PERCENT (BEAKER) 1 % 0-1 (test oxrf=7880) CBC W/PLT COUNT & AUTO [id number] 06:22:00 Test Item Value Reference Range Comments WHITE BLOOD CELL COUNT (BEAKER) (test whoj=988) 11.9 K/ L 3.5-10.5 RED BLOOD CELL COUNT (BEAKER) (test gdih=941) 2.77 M/ L 4.63-6.08 HEMOGLOBIN (BEAKER) (test fsyt=495) 8.0 GM/DL 13.7-17.5 HEMATOCRIT (BEAKER) (test bufu=592) 24.2 % 40.1-51.0 MEAN CORPUSCULAR VOLUME (BEAKER) (test ctlu=832) 87.4 fL 79.0-92.2 MEAN CORPUSCULAR HEMOGLOBIN (BEAKER) (test 28.9 pg 25.7-32.2 vmks=014) MEAN CORPUSCULAR HEMOGLOBIN CONC (BEAKER) (test 33.1 GM/DL 32.3-36.5 xhca=651) RED CELL DISTRIBUTION WIDTH (BEAKER) (test 14.9 % 11.6-14.4 vcap=333) PLATELET COUNT (BEAKER) (test sgeg=096) 644 K/CU MM 150-450 MEAN PLATELET VOLUME (BEAKER) (test sxhw=251) 9.7 fL 9.4-12.4 NUCLEATED RED BLOOD CELLS (BEAKER) (test 0 /100 WBC 0-0 zfjc=140) NEUTROPHILS RELATIVE PERCENT (BEAKER) (test 74 % vgni=878) LYMPHOCYTES RELATIVE PERCENT (BEAKER) (test 18 % rmel=665) MONOCYTES RELATIVE PERCENT (BEAKER) (test 6 % lhlg=489) EOSINOPHILS RELATIVE PERCENT (BEAKER) (test 2 % rure=987) BASOPHILS RELATIVE PERCENT (BEAKER) (test 0 % dasz=955) NEUTROPHILS ABSOLUTE COUNT (BEAKER) (test 8.73 K/ L 1.78-5.38 zcrq=588) LYMPHOCYTES ABSOLUTE COUNT (BEAKER) (test 2.15 K/ L 1.32-3.57 bxys=387) MONOCYTES ABSOLUTE COUNT (BEAKER) (test 0.67 K/ L 0.30-0.82 oimm=584) EOSINOPHILS ABSOLUTE COUNT (BEAKER) (test 0.21 K/ L 0.04-0.54 werr=682) BASOPHILS ABSOLUTE COUNT (BEAKER) (test 0.05 K/ L 0.01-0.08 jgel=941) IMMATURE GRANULOCYTES-RELATIVE PERCENT (BEAKER) 0 % 0-1 (test qhwz=9407) HEPATIC FUNCTION [id number] 05:48:00 Test Item Value Reference Range Comments TOTAL PROTEIN (BEAKER) (test xstx=561) 6.2 gm/dL 6.0-8.3 ALBUMIN (BEAKER) (test ndtw=5311) 3.2 g/dL 3.5-5.0 BILIRUBIN TOTAL (BEAKER) (test oqiw=754) 0.6 mg/dL 0.2-1.2 BILIRUBIN DIRECT (BEAKER) (test xtto=732) 0.5 mg/dL 0.1-0.5 ALKALINE PHOSPHATASE (BEAKER) (test edvu=897) 177 U/L 40-150 AST (SGOT) (BEAKER) (test oclp=736) 377 U/L 5-34 ALT (SGPT) (BEAKER) (test hxpj=589) 198 U/L 6-55 BASIC METABOLIC [id number] 05:48:00 Test Item Value Reference Range Comments SODIUM (BEAKER) (test 134 meq/L 136-145 ypus=446) POTASSIUM (BEAKER) (test 4.1 meq/L 3.5-5.1 lwgk=251) CHLORIDE (BEAKER) (test 101 meq/L 98-107 lgkd=036) CO2 (BEAKER) (test 26 meq/L 22-29 jzke=774) BLOOD UREA NITROGEN 7 mg/dL 7-21 (BEAKER) (test vnpr=135) CREATININE (BEAKER) (test 0.71 mg/dL 0.57-1.25 yeti=482) GLUCOSE RANDOM (BEAKER) 103 mg/dL 70-105 (test sxqi=196) CALCIUM (BEAKER) (test 8.7 mg/dL 8.4-10.2 nxlf=918) EGFR (BEAKER) (test 138 mL/min/1.73 sq m ESTIMATED GFR IS NOT eyer=4113) ACCURATE CREATININE CLEARANCE IN PREDICTING GLOMERULAR FILTRATION RATE. ESTIMATED GFR IS NOT APPLICABLE FOR DIALYSIS PATIENTS. HEPATIC FUNCTION [id number] 05:17:00 Test Item Value Reference Range Comments TOTAL PROTEIN (BEAKER) (test wqmf=135) 6.5 gm/dL 6.0-8.3 ALBUMIN (BEAKER) (test slue=7841) 3.3 g/dL 3.5-5.0 BILIRUBIN TOTAL (BEAKER) (test kgfg=474) 0.7 mg/dL 0.2-1.2 BILIRUBIN DIRECT (BEAKER) (test wvpc=111) 0.5 mg/dL 0.1-0.5 ALKALINE PHOSPHATASE (BEAKER) (test mgoi=637) 191 U/L 40-150 AST (SGOT) (BEAKER) (test shsc=004) 461 U/L 5-34 ALT (SGPT) (BEAKER) (test cpgo=018) 204 U/L 6-55 BASIC METABOLIC [id number] 05:17:00 Test Item Value Reference Range Comments SODIUM (BEAKER) (test 132 meq/L 136-145 cjxe=455) POTASSIUM (BEAKER) (test 4.1 meq/L 3.5-5.1 ktxm=285) CHLORIDE (BEAKER) (test 101 meq/L 98-107 arzm=476) CO2 (BEAKER) (test 22 meq/L 22-29 ilyz=805) BLOOD UREA NITROGEN 11 mg/dL 7-21 (BEAKER) (test zhhx=677) CREATININE (BEAKER) (test 0.76 mg/dL 0.57-1.25 beqr=565) GLUCOSE RANDOM (BEAKER) 107 mg/dL 70-105 (test etgw=088) CALCIUM (BEAKER) (test 8.9 mg/dL 8.4-10.2 wwka=402) EGFR (BEAKER) (test 128 mL/min/1.73 sq m ESTIMATED GFR IS NOT ohby=3223) ACCURATE CREATININE CLEARANCE IN PREDICTING GLOMERULAR FILTRATION RATE. ESTIMATED GFR IS NOT APPLICABLE FOR DIALYSIS PATIENTS. CBC W/PLT COUNT & AUTO [id number] 05:02:00 Test Item Value Reference Range Comments WHITE BLOOD CELL COUNT (BEAKER) (test zixk=258) 12.8 K/ L 3.5-10.5 RED BLOOD CELL COUNT (BEAKER) (test qizr=845) 3.01 M/ L 4.63-6.08 HEMOGLOBIN (BEAKER) (test ufaz=390) 8.6 GM/DL 13.7-17.5 HEMATOCRIT (BEAKER) (test xqcl=962) 26.3 % 40.1-51.0 MEAN CORPUSCULAR VOLUME (BEAKER) (test dcye=123) 87.4 fL 79.0-92.2 MEAN CORPUSCULAR HEMOGLOBIN (BEAKER) (test 28.6 pg 25.7-32.2 mmmc=965) MEAN CORPUSCULAR HEMOGLOBIN CONC (BEAKER) (test 32.7 GM/DL 32.3-36.5 xwhh=452) RED CELL DISTRIBUTION WIDTH (BEAKER) (test 15.0 % 11.6-14.4 szyd=635) PLATELET COUNT (BEAKER) (test cbao=429) 641 K/CU MM 150-450 MEAN PLATELET VOLUME (BEAKER) (test migd=873) 9.3 fL 9.4-12.4 NUCLEATED RED BLOOD CELLS (BEAKER) (test 0 /100 WBC 0-0 bteh=265) NEUTROPHILS RELATIVE PERCENT (BEAKER) (test 75 % cape=369) LYMPHOCYTES RELATIVE PERCENT (BEAKER) (test 16 % gdvo=497) MONOCYTES RELATIVE PERCENT (BEAKER) (test 6 % lura=504) EOSINOPHILS RELATIVE PERCENT (BEAKER) (test 1 % ysty=300) BASOPHILS RELATIVE PERCENT (BEAKER) (test 0 % oewq=114) NEUTROPHILS ABSOLUTE COUNT (BEAKER) (test 9.64 K/ L 1.78-5.38 mfjg=480) LYMPHOCYTES ABSOLUTE COUNT (BEAKER) (test 2.08 K/ L 1.32-3.57 kznw=358) MONOCYTES ABSOLUTE COUNT (BEAKER) (test 0.81 K/ L 0.30-0.82 armx=361) EOSINOPHILS ABSOLUTE COUNT (BEAKER) (test 0.16 K/ L 0.04-0.54 dgkr=014) BASOPHILS ABSOLUTE COUNT (BEAKER) (test 0.03 K/ L 0.01-0.08 uvbi=258) IMMATURE GRANULOCYTES-RELATIVE PERCENT (BEAKER) 1 % 0-1 (test frxc=9094) HEPATIC FUNCTION [id number] 06:29:00 Test Item Value Reference Range Comments TOTAL PROTEIN (BEAKER) (test nlxe=498) 6.2 gm/dL 6.0-8.3 ALBUMIN (BEAKER) (test jhyk=5642) 3.2 g/dL 3.5-5.0 BILIRUBIN TOTAL (BEAKER) (test muyu=793) 0.5 mg/dL 0.2-1.2 BILIRUBIN DIRECT (BEAKER) (test dzie=803) 0.4 mg/dL 0.1-0.5 ALKALINE PHOSPHATASE (BEAKER) (test tmwg=013) 198 U/L 40-150 AST (SGOT) (BEAKER) (test rtim=644) 401 U/L 5-34 ALT (SGPT) (BEAKER) (test elgk=142) 173 U/L 6-55 BASIC METABOLIC [id number] 06:29:00 Test Item Value Reference Range Comments SODIUM (BEAKER) (test 132 meq/L 136-145 mkqe=695) POTASSIUM (BEAKER) (test 4.2 meq/L 3.5-5.1 czvk=090) CHLORIDE (BEAKER) (test 100 meq/L 98-107 dstt=305) CO2 (BEAKER) (test 25 meq/L 22-29 vtzx=808) BLOOD UREA NITROGEN 9 mg/dL 7-21 (BEAKER) (test nmrm=605) CREATININE (BEAKER) (test 0.71 mg/dL 0.57-1.25 jqnq=984) GLUCOSE RANDOM (BEAKER) 101 mg/dL 70-105 (test mxvi=539) CALCIUM (BEAKER) (test 8.6 mg/dL 8.4-10.2 zcpp=550) EGFR (BEAKER) (test 138 mL/min/1.73 sq m ESTIMATED GFR IS NOT sjrv=2730) ACCURATE CREATININE CLEARANCE IN PREDICTING GLOMERULAR FILTRATION RATE. ESTIMATED GFR IS NOT APPLICABLE FOR DIALYSIS PATIENTS. CBC W/PLT COUNT & AUTO [id number] 05:32:00 Test Item Value Reference Range Comments WHITE BLOOD CELL COUNT (BEAKER) (test bmnp=463) 13.3 K/ L 3.5-10.5 RED BLOOD CELL COUNT (BEAKER) (test gpke=587) 3.03 M/ L 4.63-6.08 HEMOGLOBIN (BEAKER) (test srnm=005) 8.6 GM/DL 13.7-17.5 HEMATOCRIT (BEAKER) (test kykq=481) 26.4 % 40.1-51.0 MEAN CORPUSCULAR VOLUME (BEAKER) (test ymjl=424) 87.1 fL 79.0-92.2 MEAN CORPUSCULAR HEMOGLOBIN (BEAKER) (test 28.4 pg 25.7-32.2 splt=237) MEAN CORPUSCULAR HEMOGLOBIN CONC (BEAKER) (test 32.6 GM/DL 32.3-36.5 vvsi=710) RED CELL DISTRIBUTION WIDTH (BEAKER) (test 14.7 % 11.6-14.4 obrs=659) PLATELET COUNT (BEAKER) (test tajx=325) 623 K/CU MM 150-450 MEAN PLATELET VOLUME (BEAKER) (test mlxa=699) 9.4 fL 9.4-12.4 NUCLEATED RED BLOOD CELLS (BEAKER) (test 0 /100 WBC 0-0 jvxj=470) NEUTROPHILS RELATIVE PERCENT (BEAKER) (test 76 % nups=397) LYMPHOCYTES RELATIVE PERCENT (BEAKER) (test 15 % yjgg=499) MONOCYTES RELATIVE PERCENT (BEAKER) (test 7 % jheu=771) EOSINOPHILS RELATIVE PERCENT (BEAKER) (test 2 % ivzz=106) BASOPHILS RELATIVE PERCENT (BEAKER) (test 0 % batg=732) NEUTROPHILS ABSOLUTE COUNT (BEAKER) (test 10.04 K/ L 1.78-5.38 cnbm=648) LYMPHOCYTES ABSOLUTE COUNT (BEAKER) (test 2.01 K/ L 1.32-3.57 mnmd=155) MONOCYTES ABSOLUTE COUNT (BEAKER) (test 0.88 K/ L 0.30-0.82 lsls=170) EOSINOPHILS ABSOLUTE COUNT (BEAKER) (test 0.23 K/ L 0.04-0.54 ibeo=148) BASOPHILS ABSOLUTE COUNT (BEAKER) (test 0.04 K/ L 0.01-0.08 pwko=551) IMMATURE GRANULOCYTES-RELATIVE PERCENT (BEAKER) 1 % 0-1 (test uzrl=8680) HEPATIC FUNCTION [id number] 07:36:00 Test Item Value Reference Range Comments TOTAL PROTEIN (BEAKER) (test lipl=442) 6.4 gm/dL 6.0-8.3 ALBUMIN (BEAKER) (test vfqq=9080) 3.3 g/dL 3.5-5.0 BILIRUBIN TOTAL (BEAKER) (test reqg=503) 0.6 mg/dL 0.2-1.2 BILIRUBIN DIRECT (BEAKER) (test wton=987) 0.5 mg/dL 0.1-0.5 ALKALINE PHOSPHATASE (BEAKER) (test hqrt=379) 202 U/L 40-150 AST (SGOT) (BEAKER) (test qwdr=254) 459 U/L 5-34 ALT (SGPT) (BEAKER) (test emwt=918) 163 U/L 6-55 BASIC METABOLIC [id number] 06:55:00 Test Item Value Reference Range Comments SODIUM (BEAKER) (test 132 meq/L 136-145 thdd=688) POTASSIUM (BEAKER) (test 4.3 meq/L 3.5-5.1 odyr=374) CHLORIDE (BEAKER) (test 100 meq/L 98-107 oyen=001) CO2 (BEAKER) (test 24 meq/L 22-29 wolh=399) BLOOD UREA NITROGEN 9 mg/dL 7-21 (BEAKER) (test dgws=134) CREATININE (BEAKER) (test 0.73 mg/dL 0.57-1.25 mmei=630) GLUCOSE RANDOM (BEAKER) 86 mg/dL 70-105 (test pfpx=195) CALCIUM (BEAKER) (test 8.3 mg/dL 8.4-10.2 tara=414) EGFR (BEAKER) (test 134 mL/min/1.73 sq m ESTIMATED GFR IS NOT rlkj=7685) ACCURATE CREATININE CLEARANCE IN PREDICTING GLOMERULAR FILTRATION RATE. ESTIMATED GFR IS NOT APPLICABLE FOR DIALYSIS PATIENTS. CBC W/PLT COUNT & AUTO [id number] 06:11:00 Test Item Value Reference Range Comments WHITE BLOOD CELL COUNT (BEAKER) (test covz=879) 12.4 K/ L 3.5-10.5 RED BLOOD CELL COUNT (BEAKER) (test dxhu=982) 2.95 M/ L 4.63-6.08 HEMOGLOBIN (BEAKER) (test dhut=803) 8.4 GM/DL 13.7-17.5 HEMATOCRIT (BEAKER) (test mdqy=388) 25.8 % 40.1-51.0 MEAN CORPUSCULAR VOLUME (BEAKER) (test vtci=500) 87.5 fL 79.0-92.2 MEAN CORPUSCULAR HEMOGLOBIN (BEAKER) (test 28.5 pg 25.7-32.2 fpsk=833) MEAN CORPUSCULAR HEMOGLOBIN CONC (BEAKER) (test 32.6 GM/DL 32.3-36.5 qlft=462) RED CELL DISTRIBUTION WIDTH (BEAKER) (test 14.7 % 11.6-14.4 gcib=391) PLATELET COUNT (BEAKER) (test stoq=008) 621 K/CU MM 150-450 MEAN PLATELET VOLUME (BEAKER) (test tgss=515) 10.0 fL 9.4-12.4 NUCLEATED RED BLOOD CELLS (BEAKER) (test 0 /100 WBC 0-0 cyal=685) NEUTROPHILS RELATIVE PERCENT (BEAKER) (test 74 % vvfw=090) LYMPHOCYTES RELATIVE PERCENT (BEAKER) (test 19 % msrf=170) MONOCYTES RELATIVE PERCENT (BEAKER) (test 5 % cape=952) EOSINOPHILS RELATIVE PERCENT (BEAKER) (test 2 % nmis=474) BASOPHILS RELATIVE PERCENT (BEAKER) (test 0 % fhmm=878) NEUTROPHILS ABSOLUTE COUNT (BEAKER) (test 9.23 K/ L 1.78-5.38 iulg=251) LYMPHOCYTES ABSOLUTE COUNT (BEAKER) (test 2.30 K/ L 1.32-3.57 lqay=660) MONOCYTES ABSOLUTE COUNT (BEAKER) (test 0.58 K/ L 0.30-0.82 rpbt=593) EOSINOPHILS ABSOLUTE COUNT (BEAKER) (test 0.21 K/ L 0.04-0.54 jaun=968) BASOPHILS ABSOLUTE COUNT (BEAKER) (test 0.03 K/ L 0.01-0.08 egwk=088) IMMATURE GRANULOCYTES-RELATIVE PERCENT (BEAKER) 1 % 0-1 (test byux=1476) CT, CTA AAA, W/ [place].EXT.[id number] 18:44:00Addendum BeginsREPORT STATUS:A Addendum: December 29, 2018 at 1845 hours I have reviewed the CT images for this study and I concur with the nonvascular imaging findings as dictated.Abnormal mass lesions are identified in segments 2, 3, 4 and 5 of the liver, as described on MRI of the liver performed December 06, 2018. Findings are worrisome for multifocal hepatocellular carcinoma. Please refer to this study for a full description of these findings. Signed: Carli Cedillo MDReport Verified Date/Time: 12/29/2018 18:44:42 Reading Location: [place] [address] Angio Body Reading RoomAddendum EndsFINAL REPORT CT [...] dynamic passage of intravenous contrast material. Multi-planar 3 -D volume-rendering reconstruction was performed using an independent workstation interactively by the interpreting physician as well as the 3-D specialist for optimal visualisation of theabdominal aorta, pelvic arteries, and its proximal branches. [...] achievable. FINDINGS: VASCULAR: There is a mixed ofcalcific and noncalcific atherosclerosis identified in the abdominal [...] is patent. In the left and right renalarteries are seen that are widely patent. Single [...] identified. At image 202, at the mid level,mixture of calcific and noncalcific atherosclerosis identified and minimum luminal diameter is 3.4 x5.5 mm. Remainder of the right external iliac [...] proximal 1.5 cm. In the right, the [place] right SFA is occluded. The right profunda system is patent. A femoral to popliteal bypass of is identified and the graft is essentially occluded. The [place] right popliteal artery is not enhanced by [...] the left, the left SFA is essentially occluded.The left profunda system is patent. Calcification is identified in the proximal left popliteal artery, though just above the left knee joint, the left popliteal artery is well enhanced by contrast, however, there is also various focal calcification identified, for example at the level of the left kneejoint, at image 536 and 545 , making accurate assessment limited at these level. In the left lower extremity , the left and right parietal is patent. [...] enteric contrast is not given. No obvious boweldilation is identified. Scattered diverticular disease seen throughout the colon with no evidence ofacute diverticulitis. No free air or free fluid [...] dimension of the abdominal aorta are as noted.2. The left external iliac artery and much of the left common femoral arteries are occluded. Moderate calcification is seen in the patent left common iliac artery. There is moderate calcification seenin the right common iliac and the right external iliac artery. Minimum luminal diameter of the rightexternal iliac artery is approximately 3 x 5 mm. Right common femoral artery is patent. A femoral tofemoral bypass graft is identified and this graft is widely patent, and as described above, the leftexternal yearly at artery is occluded and the left SFA is also occluded. On review of prior examination one year ago, the anastomotic site of the right femoral to femoral bypass graft is seen to connect to the right common femoral artery and it is widely patent. However, there is interval placement of a short stent identified in the [place] right SFA and the most proximal margin of the stent is at the level of the anastomotic site making assessment of the patency at this level limited. In other words, there could be difficult to be in using the femoral approach, since the left external iliac arteryis not patent, and now there is a stent in the proximal right SFA, with the proximal margin right atthe location of the anastomotic site of the [...] be dictated thereafter, if further dedicated liver imagingis required. However, patient already had a MRI in November 2018, and the MR report stated the presence of multifocal hepatocellular carcinoma. 7. An addendum will be dictated regarding the non-vascular findings by the Licensed Pharmacist Radiologist. Signed: Shawn Restrepo Verified Date/Time: 12/29/2018 14:49:55 Reading Location: [place] [address] Cardiology MRI [id number] 17:55:00 Test Item Value Reference Range Comments FERRITIN (BEAKER) (test jbae=480) 1372 ng/mL 5-275 PERIPHERAL BLOOD SMEAR - HOLD [id number] 17:40:00 Test Item Value Reference Range Comments PERIPHERAL SMEAR SAVE (BEAKER) (test bujo=4996) saved IRON, TIBC, % SAT. (WITHOUT FERRITIN)2018-12-29 17:35:00 Test Item Value Reference Range Comments IRON (BEAKER) (test ampb=299) 27.0 ug/dL 40.0-160.0 TOTAL IRON BINDING CAPACITY (BEAKER) (test 294 ug/dL 250-450 ufbs=902) IRON % SATURATION (2) (BEAKER) (test tnac=0446) 9 % 20-55 HEPATIC FUNCTION [id number] 07:03:00 Test Item Value Reference Range Comments TOTAL PROTEIN (BEAKER) (test qmcf=701) 6.6 gm/dL 6.0-8.3 ALBUMIN (BEAKER) (test nezy=2158) 3.3 g/dL 3.5-5.0 BILIRUBIN TOTAL (BEAKER) (test cnng=077) 0.7 mg/dL 0.2-1.2 BILIRUBIN DIRECT (BEAKER) (test ltlu=738) 0.5 mg/dL 0.1-0.5 ALKALINE PHOSPHATASE (BEAKER) (test hrup=394) 220 U/L 40-150 AST (SGOT) (BEAKER) (test psie=429) 414 U/L 5-34 ALT (SGPT) (BEAKER) (test acgl=185) 137 U/L 6-55 BASIC METABOLIC [id number] 07:03:00 Test Item Value Reference Range Comments SODIUM (BEAKER) (test 131 meq/L 136-145 dqut=951) POTASSIUM (BEAKER) (test 3.9 meq/L 3.5-5.1 epyx=434) CHLORIDE (BEAKER) (test 99 meq/L 98-107 rndo=476) CO2 (BEAKER) (test 21 meq/L 22-29 gxiw=449) BLOOD UREA NITROGEN 15 mg/dL 7-21 (BEAKER) (test yzde=245) CREATININE (BEAKER) (test 0.81 mg/dL 0.57-1.25 xkuc=100) GLUCOSE RANDOM (BEAKER) 86 mg/dL 70-105 (test pouk=151) CALCIUM (BEAKER) (test 8.4 mg/dL 8.4-10.2 pjxv=697) EGFR (BEAKER) (test 119 mL/min/1.73 sq m ESTIMATED GFR IS NOT zzzs=9302) ACCURATE CREATININE CLEARANCE IN PREDICTING GLOMERULAR FILTRATION RATE. ESTIMATED GFR IS NOT APPLICABLE FOR DIALYSIS PATIENTS. CBC W/PLT COUNT & AUTO [id number] 06:04:00 Test Item Value Reference Range Comments WHITE BLOOD CELL COUNT (BEAKER) (test kqbl=117) 11.4 K/ L 3.5-10.5 RED BLOOD CELL COUNT (BEAKER) (test llyu=933) 3.12 M/ L 4.63-6.08 HEMOGLOBIN (BEAKER) (test wsfd=128) 9.0 GM/DL 13.7-17.5 HEMATOCRIT (BEAKER) (test bykr=293) 26.8 % 40.1-51.0 MEAN CORPUSCULAR VOLUME (BEAKER) (test oqxw=550) 85.9 fL 79.0-92.2 MEAN CORPUSCULAR HEMOGLOBIN (BEAKER) (test 28.8 pg 25.7-32.2 chis=997) MEAN CORPUSCULAR HEMOGLOBIN CONC (BEAKER) (test 33.6 GM/DL 32.3-36.5 kkhx=387) RED CELL DISTRIBUTION WIDTH (BEAKER) (test 14.7 % 11.6-14.4 vsry=062) PLATELET COUNT (BEAKER) (test djfb=936) 738 K/CU MM 150-450 MEAN PLATELET VOLUME (BEAKER) (test cwle=662) 9.4 fL 9.4-12.4 NUCLEATED RED BLOOD CELLS (BEAKER) (test 0 /100 WBC 0-0 jezy=187) NEUTROPHILS RELATIVE PERCENT (BEAKER) (test 69 % yutm=392) LYMPHOCYTES RELATIVE PERCENT (BEAKER) (test 23 % setx=728) MONOCYTES RELATIVE PERCENT (BEAKER) (test 6 % dtme=562) EOSINOPHILS RELATIVE PERCENT (BEAKER) (test 2 % czoe=773) BASOPHILS RELATIVE PERCENT (BEAKER) (test 0 % ugty=482) NEUTROPHILS ABSOLUTE COUNT (BEAKER) (test 7.90 K/ L 1.78-5.38 ryin=019) LYMPHOCYTES ABSOLUTE COUNT (BEAKER) (test 2.61 K/ L 1.32-3.57 ihwv=228) MONOCYTES ABSOLUTE COUNT (BEAKER) (test 0.65 K/ L 0.30-0.82 zskt=318) EOSINOPHILS ABSOLUTE COUNT (BEAKER) (test 0.17 K/ L 0.04-0.54 vqlk=080) BASOPHILS ABSOLUTE COUNT (BEAKER) (test 0.03 K/ L 0.01-0.08 jlfs=065) IMMATURE GRANULOCYTES-RELATIVE PERCENT (BEAKER) 1 % 0-1 (test rzno=9145) [id number] 13:49:00 Test Item Value Reference Range Comments PARTIAL THROMBOPLASTIN TIME (BEAKER) (test 95.9 seconds 22.5-36.0 jzil=046) [id number] 06:55:00 Test Item Value Reference Range Comments PARTIAL THROMBOPLASTIN TIME (BEAKER) (test 67.1 seconds 22.5-36.0 wlyp=584) HEPATIC FUNCTION [id number] 06:34:00 Test Item Value Reference Range Comments TOTAL PROTEIN (BEAKER) (test tsrx=197) 6.9 gm/dL 6.0-8.3 ALBUMIN (BEAKER) (test pipv=3254) 3.5 g/dL 3.5-5.0 BILIRUBIN TOTAL (BEAKER) (test kadv=299) 0.8 mg/dL 0.2-1.2 BILIRUBIN DIRECT (BEAKER) (test tapi=264) 0.6 mg/dL 0.1-0.5 ALKALINE PHOSPHATASE (BEAKER) (test xawn=438) 243 U/L 40-150 AST (SGOT) (BEAKER) (test uhgr=362) 372 U/L 5-34 ALT (SGPT) (BEAKER) (test iabw=943) 128 U/L 6-55 BASIC METABOLIC [id number] 06:34:00 Test Item Value Reference Range Comments SODIUM (BEAKER) (test 128 meq/L 136-145 rdqz=183) POTASSIUM (BEAKER) (test 3.7 meq/L 3.5-5.1 fkvm=622) CHLORIDE (BEAKER) (test 96 meq/L 98-107 rbhk=243) CO2 (BEAKER) (test 25 meq/L 22-29 awuc=215) BLOOD UREA NITROGEN 15 mg/dL 7-21 (BEAKER) (test wout=539) CREATININE (BEAKER) (test 0.80 mg/dL 0.57-1.25 zpue=434) GLUCOSE RANDOM (BEAKER) 105 mg/dL 70-105 (test xcff=763) CALCIUM (BEAKER) (test 9.0 mg/dL 8.4-10.2 xqzl=505) EGFR (BEAKER) (test 120 mL/min/1.73 sq m ESTIMATED GFR IS NOT umbd=5194) ACCURATE CREATININE CLEARANCE IN PREDICTING GLOMERULAR FILTRATION RATE. ESTIMATED GFR IS NOT APPLICABLE FOR DIALYSIS PATIENTS. CBC W/PLT COUNT & AUTO [id number] 05:14:00 Test Item Value Reference Range Comments WHITE BLOOD CELL COUNT (BEAKER) (test sfto=221) 12.3 K/ L 3.5-10.5 RED BLOOD CELL COUNT (BEAKER) (test mmku=636) 3.33 M/ L 4.63-6.08 HEMOGLOBIN (BEAKER) (test rqig=934) 9.5 GM/DL 13.7-17.5 HEMATOCRIT (BEAKER) (test zemu=078) 28.4 % 40.1-51.0 MEAN CORPUSCULAR VOLUME (BEAKER) (test vxnz=926) 85.3 fL 79.0-92.2 MEAN CORPUSCULAR HEMOGLOBIN (BEAKER) (test 28.5 pg 25.7-32.2 faoq=674) MEAN CORPUSCULAR HEMOGLOBIN CONC (BEAKER) (test 33.5 GM/DL 32.3-36.5 glnb=468) RED CELL DISTRIBUTION WIDTH (BEAKER) (test 14.6 % 11.6-14.4 fpis=989) PLATELET COUNT (BEAKER) (test qkpo=011) 744 K/CU MM 150-450 MEAN PLATELET VOLUME (BEAKER) (test tnpb=665) 8.8 fL 9.4-12.4 NUCLEATED RED BLOOD CELLS (BEAKER) (test 0 /100 WBC 0-0 fvnc=168) NEUTROPHILS RELATIVE PERCENT (BEAKER) (test 68 % tryg=848) LYMPHOCYTES RELATIVE PERCENT (BEAKER) (test 23 % pvcx=992) MONOCYTES RELATIVE PERCENT (BEAKER) (test 7 % akrg=190) EOSINOPHILS RELATIVE PERCENT (BEAKER) (test 2 % boyn=410) BASOPHILS RELATIVE PERCENT (BEAKER) (test 0 % grgw=407) NEUTROPHILS ABSOLUTE COUNT (BEAKER) (test 8.34 K/ L 1.78-5.38 amcm=137) LYMPHOCYTES ABSOLUTE COUNT (BEAKER) (test 2.80 K/ L 1.32-3.57 fexs=192) MONOCYTES ABSOLUTE COUNT (BEAKER) (test 0.89 K/ L 0.30-0.82 seks=805) EOSINOPHILS ABSOLUTE COUNT (BEAKER) (test 0.18 K/ L 0.04-0.54 qwhz=741) BASOPHILS ABSOLUTE COUNT (BEAKER) (test 0.03 K/ L 0.01-0.08 aale=708) IMMATURE GRANULOCYTES-RELATIVE PERCENT (BEAKER) 1 % 0-1 (test ptpo=4114) [id number] 01:03:00 Test Item Value Reference Range Comments PARTIAL THROMBOPLASTIN TIME (BEAKER) (test 84.1 seconds 22.5-36.0 tisv=368) [id number] 18:16:00 Test Item Value Reference Range Comments PARTIAL THROMBOPLASTIN TIME (BEAKER) (test 107.3 seconds 22.5-36.0 jsps=239) [id number] 11:18:00 Test Item Value Reference Range Comments PARTIAL THROMBOPLASTIN TIME (BEAKER) (test 117.3 seconds 22.5-36.0 lskv=022) HEPATIC FUNCTION [id number] 07:42:00 Test Item Value Reference Range Comments TOTAL PROTEIN (BEAKER) (test ndjv=283) 7.1 gm/dL 6.0-8.3 ALBUMIN (BEAKER) (test mdwr=1314) 3.5 g/dL 3.5-5.0 BILIRUBIN TOTAL (BEAKER) (test xwdz=873) 0.7 mg/dL 0.2-1.2 BILIRUBIN DIRECT (BEAKER) (test qlyl=891) 0.6 mg/dL 0.1-0.5 ALKALINE PHOSPHATASE (BEAKER) (test flep=279) 260 U/L 40-150 AST (SGOT) (BEAKER) (test jvty=510) 303 U/L 5-34 ALT (SGPT) (BEAKER) (test eovk=756) 110 U/L 6-55 BASIC METABOLIC [id number] 07:42:00 Test Item Value Reference Range Comments SODIUM (BEAKER) (test 130 meq/L 136-145 juvt=213) POTASSIUM (BEAKER) (test 3.8 meq/L 3.5-5.1 ybiw=086) CHLORIDE (BEAKER) (test 97 meq/L 98-107 gxxn=848) CO2 (BEAKER) (test 19 meq/L 22-29 wisy=335) BLOOD UREA NITROGEN 19 mg/dL 7-21 (BEAKER) (test gmzu=906) CREATININE (BEAKER) (test 0.83 mg/dL 0.57-1.25 kwzd=922) GLUCOSE RANDOM (BEAKER) 108 mg/dL 70-105 (test lefi=014) CALCIUM (BEAKER) (test 8.8 mg/dL 8.4-10.2 zuql=039) EGFR (BEAKER) (test 115 mL/min/1.73 sq m ESTIMATED GFR IS NOT pafu=9599) ACCURATE CREATININE CLEARANCE IN PREDICTING GLOMERULAR FILTRATION RATE. ESTIMATED GFR IS NOT APPLICABLE FOR DIALYSIS PATIENTS. PERIPHERAL BLOOD SMEAR - HOLD [id number] 07:21:00 Test Item Value Reference Range Comments PERIPHERAL SMEAR SAVE (BEAKER) (test svpa=5916) saved [id number] 05:32:00 Test Item Value Reference Range Comments PARTIAL THROMBOPLASTIN TIME (BEAKER) (test 84.2 seconds 22.5-36.0 vphq=539) CBC W/PLT COUNT & AUTO [id number] 05:20:00 Test Item Value Reference Range Comments WHITE BLOOD CELL COUNT (BEAKER) (test qvma=907) 13.8 K/ L 3.5-10.5 RED BLOOD CELL COUNT (BEAKER) (test gpyl=762) 3.28 M/ L 4.63-6.08 HEMOGLOBIN (BEAKER) (test lqsk=529) 9.5 GM/DL 13.7-17.5 HEMATOCRIT (BEAKER) (test qzxt=142) 28.3 % 40.1-51.0 MEAN CORPUSCULAR VOLUME (BEAKER) (test diqt=313) 86.3 fL 79.0-92.2 MEAN CORPUSCULAR HEMOGLOBIN (BEAKER) (test 29.0 pg 25.7-32.2 oeir=589) MEAN CORPUSCULAR HEMOGLOBIN CONC (BEAKER) (test 33.6 GM/DL 32.3-36.5 xguv=563) RED CELL DISTRIBUTION WIDTH (BEAKER) (test 14.8 % 11.6-14.4 zilo=231) PLATELET COUNT (BEAKER) (test ttqz=134) 887 K/CU MM 150-450 MEAN PLATELET VOLUME (BEAKER) (test fqsn=814) 9.3 fL 9.4-12.4 NUCLEATED RED BLOOD CELLS (BEAKER) (test 0 /100 WBC 0-0 ypkv=422) NEUTROPHILS RELATIVE PERCENT (BEAKER) (test 71 % pmei=220) LYMPHOCYTES RELATIVE PERCENT (BEAKER) (test 19 % jpub=296) MONOCYTES RELATIVE PERCENT (BEAKER) (test 8 % ehug=497) EOSINOPHILS RELATIVE PERCENT (BEAKER) (test 1 % xopr=673) BASOPHILS RELATIVE PERCENT (BEAKER) (test 0 % klqi=806) NEUTROPHILS ABSOLUTE COUNT (BEAKER) (test 9.81 K/ L 1.78-5.38 mykw=119) LYMPHOCYTES ABSOLUTE COUNT (BEAKER) (test 2.57 K/ L 1.32-3.57 uepj=160) MONOCYTES ABSOLUTE COUNT (BEAKER) (test 1.10 K/ L 0.30-0.82 jjkj=450) EOSINOPHILS ABSOLUTE COUNT (BEAKER) (test 0.15 K/ L 0.04-0.54 ocby=656) BASOPHILS ABSOLUTE COUNT (BEAKER) (test 0.04 K/ L 0.01-0.08 zixw=200) IMMATURE GRANULOCYTES-RELATIVE PERCENT (BEAKER) 1 % 0-1 (test gpbg=5213) [id number] 21:00:00 Test Item Value Reference Range Comments PROTIME (BEAKER) (test zljk=693) 13.6 seconds 11.9-14.2 INR (BEAKER) (test iyye=777) 1.1 <=5.9 PARTIAL THROMBOPLASTIN TIME (BEAKER) (test 54.0 seconds 22.5-36.0 whbp=719) Effective 10/21/2018: PT Reference Range ChangeNew: 11.9-14.2 Previous: 11.7- 14.7RECOMMENDED COUMADIN/WARFARIN INR THERAPY RANGESSTANDARD DOSE: 2.0-3.0 Includes: PROPHYLAXIS for venous thrombosis, systemic embolization; TREATMENT for venous thrombosis and/or pulmonary embolus.HIGH RISK: Target INR is2.5-3.5 for patients wiht mechanical heart valves.BLOOD [id number] 20:01:00 Test Item Value Reference Range Comments CULTURE (BEAKER) (test oyyp=4537) No growth in 5 days BLOOD [id number] 20:01:00 Test Item Value Reference Range Comments CULTURE (BEAKER) (test jtab=5320) No growth in 5 days SPUTUM CULTURE + GRAM [id number] 13:21:00 Test Item Value Reference Range Comments CULTURE (BEAKER) (test 4+ Normal respiratory yael inhh=2308) present GRAM STAIN RESULT (BEAKER) 2+ White blood cells seen (test bhke=1326) GRAM STAIN RESULT (BEAKER) 10-15 epithelial cells (test bucg=41462) GRAM STAIN RESULT (BEAKER) 3+ gram positive rods (test bbhc=34513) GRAM STAIN RESULT (BEAKER) 3+ gram positive cocci in (test joup=152131) chains, pairs and clusters BASIC METABOLIC [id number] 07:38:00 Test Item Value Reference Range Comments SODIUM (BEAKER) (test 138 meq/L 136-145 zdzk=596) POTASSIUM (BEAKER) (test 3.7 meq/L 3.5-5.1 kfwh=758) CHLORIDE (BEAKER) (test 106 meq/L 98-107 dohs=474) CO2 (BEAKER) (test 22 meq/L 22-29 gqyi=201) BLOOD UREA NITROGEN 6 mg/dL 7-21 (BEAKER) (test wgol=392) CREATININE (BEAKER) (test 0.71 mg/dL 0.57-1.25 rzhb=469) GLUCOSE RANDOM (BEAKER) 91 mg/dL 70-105 (test kfzd=605) CALCIUM (BEAKER) (test 9.0 mg/dL 8.4-10.2 qiit=833) EGFR (BEAKER) (test 138 mL/min/1.73 sq m ESTIMATED GFR IS NOT wwtm=6736) ACCURATE CREATININE CLEARANCE IN PREDICTING GLOMERULAR FILTRATION RATE. ESTIMATED GFR IS NOT APPLICABLE FOR DIALYSIS PATIENTS. CBC W/PLT COUNT & AUTO [id number] 05:19:00 Test Item Value Reference Range Comments WHITE BLOOD CELL COUNT (BEAKER) (test memd=128) 11.9 K/ L 3.5-10.5 RED BLOOD CELL COUNT (BEAKER) (test rswh=854) 3.59 M/ L 4.63-6.08 HEMOGLOBIN (BEAKER) (test xljl=526) 10.4 GM/DL 13.7-17.5 HEMATOCRIT (BEAKER) (test utbk=012) 31.4 % 40.1-51.0 MEAN CORPUSCULAR VOLUME (BEAKER) (test kldw=115) 87.5 fL 79.0-92.2 MEAN CORPUSCULAR HEMOGLOBIN (BEAKER) (test 29.0 pg 25.7-32.2 tcso=317) MEAN CORPUSCULAR HEMOGLOBIN CONC (BEAKER) (test 33.1 GM/DL 32.3-36.5 npjp=390) RED CELL DISTRIBUTION WIDTH (BEAKER) (test 14.7 % 11.6-14.4 hmko=146) PLATELET COUNT (BEAKER) (test brgk=154) 416 K/CU MM 150-450 MEAN PLATELET VOLUME (BEAKER) (test tvgl=854) 10.1 fL 9.4-12.4 NUCLEATED RED BLOOD CELLS (BEAKER) (test 0 /100 WBC 0-0 cuaj=042) NEUTROPHILS RELATIVE PERCENT (BEAKER) (test 67 % eyzm=586) LYMPHOCYTES RELATIVE PERCENT (BEAKER) (test 20 % vmxg=646) MONOCYTES RELATIVE PERCENT (BEAKER) (test 11 % hgcb=938) EOSINOPHILS RELATIVE PERCENT (BEAKER) (test 2 % bpsl=010) BASOPHILS RELATIVE PERCENT (BEAKER) (test 0 % piek=076) NEUTROPHILS ABSOLUTE COUNT (BEAKER) (test 7.97 K/ L 1.78-5.38 hcsz=799) LYMPHOCYTES ABSOLUTE COUNT (BEAKER) (test 2.41 K/ L 1.32-3.57 rtpj=019) MONOCYTES ABSOLUTE COUNT (BEAKER) (test 1.26 K/ L 0.30-0.82 rutm=630) EOSINOPHILS ABSOLUTE COUNT (BEAKER) (test 0.20 K/ L 0.04-0.54 dyyo=311) BASOPHILS ABSOLUTE COUNT (BEAKER) (test 0.02 K/ L 0.01-0.08 xlpo=117) IMMATURE GRANULOCYTES-RELATIVE PERCENT (BEAKER) 1 % 0-1 (test yelo=1877) URINALYSIS W/ REFLEX URINE [id number] 21:32:00 Test Item Value Reference Range Comments COLOR (BEAKER) (test miwq=130) Yellow CLARITY (BEAKER) (test ysrn=987) Clear SPECIFIC GRAVITY UA (BEAKER) (test edrz=081) 1.009 1.001-1.035 PH UA (BEAKER) (test fhsz=446) 7.0 5.0-8.0 PROTEIN UA (BEAKER) (test vhzx=082) Negative Negative GLUCOSE UA (BEAKER) (test nmxf=363) Negative Negative KETONES UA (BEAKER) (test tfog=995) Negative Negative BILIRUBIN UA (BEAKER) (test ztud=909) Negative Negative BLOOD UA (BEAKER) (test wvay=131) Negative Negative NITRITE UA (BEAKER) (test wxeb=300) Negative Negative LEUKOCYTE ESTERASE UA (BEAKER) (test lotb=715) Large Negative UROBILINOGEN UA (BEAKER) (test igid=344) 8.0 mg/dL 0.2-1.0 RBC UA (BEAKER) (test hndt=032) 1 /HPF WBC UA (BEAKER) (test aeqg=211) 18 /HPF SQUAMOUS EPITHELIAL (BEAKER) (test hziy=586) < /HPF SOURCE(BEAKER) (test rqcn=7457) RESPIRATORY PANEL [id number] 20:04:00 Test Item Value Reference Range Comments HUMAN METAPNEUMOVIRUS (BEAKER) (test Not detected Not detected, Equivocal gxdq=1960) RHINOVIRUS (BEAKER) (test mzin=9914) Not detected Not detected, Equivocal INFLUENZA A (BEAKER) (test gzyl=1486) Not detected Not detected, Equivocal INFLUENZA A (NO SUBTYPE) (test Not detected, Equivocal ktuf=8866) INFLUENZA A SUBTYPE H1 (BEAKER) (test Not detected, Equivocal salf=6721) INFLUENZA A SUBTYPE H3 (BEAKER) (test Not detected, Equivocal khbz=8606) INFLUENZA A SUBTYPE H1-2009 (BEAKER) Not detected, Equivocal (test pubt=5486) INFLUENZA B (BEAKER) (test vazd=1864) Not detected Not detected, Equivocal RESPIRATORY SYNCYTIAL VIRUS (BEAKER) Not detected Not detected, Equivocal (test onin=2803) PARAINFLUENZA VIRUS 1 (BEAKER) (test Not detected Not detected, Equivocal asyx=2000) PARAINFLUENZA VIRUS 2 (BEAKER) (test Not detected Not detected, Equivocal freg=8171) PARAINFLUENZA VIRUS 3 (BEAKER) (test Not detected Not detected, Equivocal chtm=6359) PARAINFLUENZA VIRUS 4 (BEAKER) (test Not detected Not detected, Equivocal ghct=5548) ADENOVIRUS (BEAKER) (test idvq=3670) Not detected Not detected, Equivocal CORONAVIRUS 229E (BEAKER) (test Not detected Not detected, Equivocal ondb=9363) CORONAVIRUS HKU1 (BEAKER) (test Not detected Not detected, Equivocal jzcj=5123) CORONAVIRUS NL63 (BEAKER) (test Not detected Not detected, Equivocal cwlt=0367) CORONAVIRUS OC43 (BEAKER) (test Not detected Not detected, Equivocal oehk=0746) BORDETELLA PERTUSSIS (BEAKER) (test Not detected Not detected, Equivocal ulow=2553) CHLAMYDOPHILA PNEUMONIAE (BEAKER) (test Not detected Not detected, Equivocal ypvq=1256) MYCOPLASMA PNEUMONIAE (BEAKER) (test Not detected Not detected, Equivocal mtci=0715) Other viruses and bacteria not targeted by this PCR panel cannot be excluded; therefore clinical correlation and follow up of serology, culture results, and other molecular studies is required. The results are not intended to be used as the sole means for clinical diagnosis or patient management decisions. This sample was tested at the [facility] using the [employer] FilmArray Respiratory Panel. It is FDA cleared and has been verified and approved by the [facility] for clinical use on nasopharyngeal swab specimens.The performance of the FilmArrayRP has not been established in individuals who received influenza vaccine. Recent administration ofa nasal influenza vaccine may cause false positive results for Influenza A and/orInfluenza B.RAD, CHEST, 1 VIEW, NON [id number] 13:42: 00Reason for exam:->feverShould this be performed at the bedside?-> YesFINAL REPORT TECHNIQUE: Frontal chest radiograph dated 12/10/2018. CLINICAL HISTORY: Fever COMPARISON STUDY: Chest radiograph dated 09/25/2017 IMPRESSION:Lungs are clear. No pleural effusion or pneumothorax. Cardiomediastinal silhouette is normal in size. No pulmonary edema. No fracture. Signed: Shantanu Ryaneport Verified Date/Time: 12/10/2018 13:42:21 Reading Location: [facility] Reading Room [facility] [id number] 07:05:00 Test Item Value Reference Range Comments SODIUM (BEAKER) (test 135 meq/L 136-145 mhxg=295) POTASSIUM (BEAKER) (test 3.7 meq/L 3.5-5.1 cfqz=965) CHLORIDE (BEAKER) (test 105 meq/L 98-107 oglk=728) CO2 (BEAKER) (test 23 meq/L 22-29 fzsw=640) BLOOD UREA NITROGEN 6 mg/dL 7-21 (BEAKER) (test ohuc=744) CREATININE (BEAKER) (test 0.78 mg/dL 0.57-1.25 konj=128) GLUCOSE RANDOM (BEAKER) 97 mg/dL 70-105 (test vuxz=888) CALCIUM (BEAKER) (test 8.7 mg/dL 8.4-10.2 niog=001) EGFR (BEAKER) (test 124 mL/min/1.73 sq m ESTIMATED GFR IS NOT skha=8258) ACCURATE CREATININE CLEARANCE IN PREDICTING GLOMERULAR FILTRATION RATE. ESTIMATED GFR IS NOT APPLICABLE FOR DIALYSIS PATIENTS. CBC W/PLT COUNT & AUTO [id number] 05:42:00 Test Item Value Reference Range Comments WHITE BLOOD CELL COUNT (BEAKER) (test qvuz=275) 13.0 K/ L 3.5-10.5 RED BLOOD CELL COUNT (BEAKER) (test jebw=587) 3.71 M/ L 4.63-6.08 HEMOGLOBIN (BEAKER) (test nzpl=278) 10.9 GM/DL 13.7-17.5 HEMATOCRIT (BEAKER) (test ozhn=371) 32.1 % 40.1-51.0 MEAN CORPUSCULAR VOLUME (BEAKER) (test grti=387) 86.5 fL 79.0-92.2 MEAN CORPUSCULAR HEMOGLOBIN (BEAKER) (test 29.4 pg 25.7-32.2 awfb=594) MEAN CORPUSCULAR HEMOGLOBIN CONC (BEAKER) (test 34.0 GM/DL 32.3-36.5 sgpq=121) RED CELL DISTRIBUTION WIDTH (BEAKER) (test 14.4 % 11.6-14.4 jqrw=753) PLATELET COUNT (BEAKER) (test oliz=473) 407 K/CU MM 150-450 MEAN PLATELET VOLUME (BEAKER) (test dgrq=535) 9.8 fL 9.4-12.4 NUCLEATED RED BLOOD CELLS (BEAKER) (test 0 /100 WBC 0-0 olkh=937) NEUTROPHILS RELATIVE PERCENT (BEAKER) (test 72 % aulm=616) LYMPHOCYTES RELATIVE PERCENT (BEAKER) (test 17 % ivql=890) MONOCYTES RELATIVE PERCENT (BEAKER) (test 9 % imgo=950) EOSINOPHILS RELATIVE PERCENT (BEAKER) (test 1 % qafe=536) BASOPHILS RELATIVE PERCENT (BEAKER) (test 0 % qait=084) NEUTROPHILS ABSOLUTE COUNT (BEAKER) (test 9.35 K/ L 1.78-5.38 llsd=605) LYMPHOCYTES ABSOLUTE COUNT (BEAKER) (test 2.14 K/ L 1.32-3.57 ajoi=772) MONOCYTES ABSOLUTE COUNT (BEAKER) (test 1.22 K/ L 0.30-0.82 gjdh=583) EOSINOPHILS ABSOLUTE COUNT (BEAKER) (test 0.15 K/ L 0.04-0.54 bzff=402) BASOPHILS ABSOLUTE COUNT (BEAKER) (test 0.04 K/ L 0.01-0.08 hvsw=134) IMMATURE GRANULOCYTES-RELATIVE PERCENT (BEAKER) 1 % 0-1 (test xmoy=7422) BASIC METABOLIC [id number] 07:42:00 Test Item Value Reference Range Comments SODIUM (BEAKER) (test 135 meq/L 136-145 owwu=002) POTASSIUM (BEAKER) (test 3.9 meq/L 3.5-5.1 nadi=891) CHLORIDE (BEAKER) (test 106 meq/L 98-107 mewb=906) CO2 (BEAKER) (test 21 meq/L 22-29 oagx=555) BLOOD UREA NITROGEN 7 mg/dL 7-21 (BEAKER) (test xqbt=408) CREATININE (BEAKER) (test 0.79 mg/dL 0.57-1.25 zxaf=424) GLUCOSE RANDOM (BEAKER) 87 mg/dL 70-105 (test oxde=249) CALCIUM (BEAKER) (test 8.8 mg/dL 8.4-10.2 hyvy=620) EGFR (BEAKER) (test 122 mL/min/1.73 sq m ESTIMATED GFR IS NOT spaz=2765) ACCURATE CREATININE CLEARANCE IN PREDICTING GLOMERULAR FILTRATION RATE. ESTIMATED GFR IS NOT APPLICABLE FOR DIALYSIS PATIENTS. CBC W/PLT COUNT & AUTO [id number] 06:35:00 Test Item Value Reference Range Comments WHITE BLOOD CELL COUNT (BEAKER) (test mqju=149) 11.7 K/ L 3.5-10.5 RED BLOOD CELL COUNT (BEAKER) (test bbpt=542) 3.73 M/ L 4.63-6.08 HEMOGLOBIN (BEAKER) (test jhmf=504) 10.9 GM/DL 13.7-17.5 HEMATOCRIT (BEAKER) (test ouhg=273) 32.5 % 40.1-51.0 MEAN CORPUSCULAR VOLUME (BEAKER) (test bpem=778) 87.1 fL 79.0-92.2 MEAN CORPUSCULAR HEMOGLOBIN (BEAKER) (test 29.2 pg 25.7-32.2 kibu=206) MEAN CORPUSCULAR HEMOGLOBIN CONC (BEAKER) (test 33.5 GM/DL 32.3-36.5 isjj=717) RED CELL DISTRIBUTION WIDTH (BEAKER) (test 14.3 % 11.6-14.4 qhgm=061) PLATELET COUNT (BEAKER) (test sqfu=823) 427 K/CU MM 150-450 MEAN PLATELET VOLUME (BEAKER) (test jmay=587) 10.1 fL 9.4-12.4 NUCLEATED RED BLOOD CELLS (BEAKER) (test 0 /100 WBC 0-0 ntto=775) NEUTROPHILS RELATIVE PERCENT (BEAKER) (test 70 % cdyw=857) LYMPHOCYTES RELATIVE PERCENT (BEAKER) (test 19 % gyyr=821) MONOCYTES RELATIVE PERCENT (BEAKER) (test 9 % plux=727) EOSINOPHILS RELATIVE PERCENT (BEAKER) (test 2 % sgwa=940) BASOPHILS RELATIVE PERCENT (BEAKER) (test 0 % uvax=792) NEUTROPHILS ABSOLUTE COUNT (BEAKER) (test 8.19 K/ L 1.78-5.38 wmbn=600) LYMPHOCYTES ABSOLUTE COUNT (BEAKER) (test 2.25 K/ L 1.32-3.57 zdku=328) MONOCYTES ABSOLUTE COUNT (BEAKER) (test 1.00 K/ L 0.30-0.82 bkon=321) EOSINOPHILS ABSOLUTE COUNT (BEAKER) (test 0.19 K/ L 0.04-0.54 sycp=990) BASOPHILS ABSOLUTE COUNT (BEAKER) (test 0.03 K/ L 0.01-0.08 hmqh=711) IMMATURE GRANULOCYTES-RELATIVE PERCENT (BEAKER) 1 % 0-1 (test mdng=0195) HEPATIC FUNCTION [id number] 06:55:00 Test Item Value Reference Range Comments TOTAL PROTEIN (BEAKER) (test afko=062) 6.7 gm/dL 6.0-8.3 ALBUMIN (BEAKER) (test xmdo=1578) 3.6 g/dL 3.5-5.0 BILIRUBIN TOTAL (BEAKER) (test vaji=728) 0.7 mg/dL 0.2-1.2 BILIRUBIN DIRECT (BEAKER) (test vorv=608) 0.6 mg/dL 0.1-0.5 ALKALINE PHOSPHATASE (BEAKER) (test oswb=477) 267 U/L 40-150 AST (SGOT) (BEAKER) (test qwbc=875) 595 U/L 5-34 ALT (SGPT) (BEAKER) (test zqks=276) 658 U/L 6-55 BASIC METABOLIC [id number] 06:55:00 Test Item Value Reference Range Comments SODIUM (BEAKER) (test 136 meq/L 136-145 ciru=049) POTASSIUM (BEAKER) (test 4.0 meq/L 3.5-5.1 ztbk=825) CHLORIDE (BEAKER) (test 107 meq/L 98-107 uowp=759) CO2 (BEAKER) (test 21 meq/L 22-29 yiho=050) BLOOD UREA NITROGEN 8 mg/dL 7-21 (BEAKER) (test uwwq=438) CREATININE (BEAKER) (test 0.75 mg/dL 0.57-1.25 sebg=489) GLUCOSE RANDOM (BEAKER) 95 mg/dL 70-105 (test faze=633) CALCIUM (BEAKER) (test 9.1 mg/dL 8.4-10.2 xxnh=832) EGFR (BEAKER) (test 130 mL/min/1.73 sq m ESTIMATED GFR IS NOT ynhv=5811) ACCURATE CREATININE CLEARANCE IN PREDICTING GLOMERULAR FILTRATION RATE. ESTIMATED GFR IS NOT APPLICABLE FOR DIALYSIS PATIENTS. [id number] 06:07:00 Test Item Value Reference Range Comments PROTIME (BEAKER) (test pgsr=148) 13.2 seconds 11.9-14.2 INR (BEAKER) (test mtlj=361) 1.1 <=5.9 PARTIAL THROMBOPLASTIN TIME (BEAKER) (test 39.2 seconds 22.5-36.0 aequ=318) Effective 10/21/2018: PT Reference Range ChangeNew: 11.9-14.2 Previous: 11.7- 14.7RECOMMENDED COUMADIN/WARFARIN INR THERAPY RANGESSTANDARD DOSE: 2.0-3.0 Includes: PROPHYLAXIS for venous thrombosis, systemic embolization; TREATMENT for venous thrombosis and/or pulmonary embolus.HIGH RISK: Target INR is2.5-3.5 for patients wiht mechanical heart valves.CBC W/PLT COUNT & AUTO [id number] 05:58:00 Test Item Value Reference Range Comments WHITE BLOOD CELL COUNT (BEAKER) (test ccqa=360) 9.6 K/ L 3.5-10.5 RED BLOOD CELL COUNT (BEAKER) (test hjdq=788) 3.86 M/ L 4.63-6.08 HEMOGLOBIN (BEAKER) (test djwj=999) 11.1 GM/DL 13.7-17.5 HEMATOCRIT (BEAKER) (test jmkp=947) 33.3 % 40.1-51.0 MEAN CORPUSCULAR VOLUME (BEAKER) (test nsgb=858) 86.3 fL 79.0-92.2 MEAN CORPUSCULAR HEMOGLOBIN (BEAKER) (test 28.8 pg 25.7-32.2 rfvb=157) MEAN CORPUSCULAR HEMOGLOBIN CONC (BEAKER) (test 33.3 GM/DL 32.3-36.5 egjb=623) RED CELL DISTRIBUTION WIDTH (BEAKER) (test 14.2 % 11.6-14.4 smfv=922) PLATELET COUNT (BEAKER) (test giec=115) 414 K/CU MM 150-450 MEAN PLATELET VOLUME (BEAKER) (test fmew=321) 9.8 fL 9.4-12.4 NUCLEATED RED BLOOD CELLS (BEAKER) (test 0 /100 WBC 0-0 xlwo=778) NEUTROPHILS RELATIVE PERCENT (BEAKER) (test 69 % lils=906) LYMPHOCYTES RELATIVE PERCENT (BEAKER) (test 21 % qcib=450) MONOCYTES RELATIVE PERCENT (BEAKER) (test 7 % wxwi=926) EOSINOPHILS RELATIVE PERCENT (BEAKER) (test 2 % ikgw=568) BASOPHILS RELATIVE PERCENT (BEAKER) (test 0 % yjxf=066) NEUTROPHILS ABSOLUTE COUNT (BEAKER) (test 6.66 K/ L 1.78-5.38 ghxb=400) LYMPHOCYTES ABSOLUTE COUNT (BEAKER) (test 2.00 K/ L 1.32-3.57 gngj=004) MONOCYTES ABSOLUTE COUNT (BEAKER) (test 0.71 K/ L 0.30-0.82 sdef=358) EOSINOPHILS ABSOLUTE COUNT (BEAKER) (test 0.20 K/ L 0.04-0.54 lmzq=535) BASOPHILS ABSOLUTE COUNT (BEAKER) (test 0.03 K/ L 0.01-0.08 rrfd=072) IMMATURE GRANULOCYTES-RELATIVE PERCENT (BEAKER) 0 % 0-1 (test nais=3366) CT, CHEST, WITH [id number] 04:21:00FINAL REPORT EXAMINATION: Chest CT with IV [...] disease. Please see above for details.Signed: Marlee Poolort Verified Date/Time: 12/08/2018 04:21:30 Reading Location : [address] Reading Room HEPATITIS C PCR, [id number] 21:55: 00 Test Item Value Reference Range Comments HCV RESULT COMPONENT (BEAKER) HCV RNA not detected HCV RNA not detected (test rqkb=8886) This test uses a Real-Time Polymerase Chain Reaction (RT-PCR) methodology and was performed using DAVID Ampliprep/DAVID TaqMan HCV test kit version 2.0 ( [employer]).Reportable range for this assay is 15 - 100,000, 000 IU per mL (1.18 - 8.00 Log IU/mL).HEPATIC FUNCTION [id number] 05:54:00 Test Item Value Reference Range Comments TOTAL PROTEIN (BEAKER) (test ywvp=586) 6.6 gm/dL 6.0-8.3 ALBUMIN (BEAKER) (test ofhr=5490) 3.5 g/dL 3.5-5.0 BILIRUBIN TOTAL (BEAKER) (test hblr=094) 0.3 mg/dL 0.2-1.2 BILIRUBIN DIRECT (BEAKER) (test zxjz=717) 0.2 mg/dL 0.1-0.5 ALKALINE PHOSPHATASE (BEAKER) (test qevy=628) 174 U/L 40-150 AST (SGOT) (BEAKER) (test ymsq=953) 346 U/L 5-34 ALT (SGPT) (BEAKER) (test ttwl=301) 326 U/L 6-55 BASIC METABOLIC [id number] 05:54:00 Test Item Value Reference Range Comments SODIUM (BEAKER) (test 136 meq/L 136-145 wkto=869) POTASSIUM (BEAKER) (test 4.4 meq/L 3.5-5.1 dhsx=142) CHLORIDE (BEAKER) (test 108 meq/L 98-107 flfi=527) CO2 (BEAKER) (test 21 meq/L 22-29 aejd=487) BLOOD UREA NITROGEN 11 mg/dL 7-21 (BEAKER) (test soxc=143) CREATININE (BEAKER) (test 0.76 mg/dL 0.57-1.25 xqhb=885) GLUCOSE RANDOM (BEAKER) 94 mg/dL 70-105 (test bhgc=380) CALCIUM (BEAKER) (test 8.8 mg/dL 8.4-10.2 qrzl=401) EGFR (BEAKER) (test 128 mL/min/1.73 sq m ESTIMATED GFR IS NOT tpdf=8557) ACCURATE CREATININE CLEARANCE IN PREDICTING GLOMERULAR FILTRATION RATE. ESTIMATED GFR IS NOT APPLICABLE FOR DIALYSIS PATIENTS. PT/[id number] 05:33:00 Test Item Value Reference Range Comments PROTIME (BEAKER) (test kezv=102) 14.7 seconds 11.9-14.2 INR (BEAKER) (test upvo=361) 1.2 <=5.9 PARTIAL THROMBOPLASTIN TIME (BEAKER) (test 38.1 seconds 22.5-36.0 qcoc=434) Effective 10/21/2018: PT Reference Range ChangeNew: 11.9-14.2 Previous: 11.7- 14.7RECOMMENDED COUMADIN/WARFARIN INR THERAPY RANGESSTANDARD DOSE: 2.0-3.0 Includes: PROPHYLAXIS for venous thrombosis, systemic embolization; TREATMENT for venous thrombosis and/or pulmonary embolus.HIGH RISK: Target INR is2.5-3.5 for patients wiht mechanical heart valves.CBC W/PLT COUNT & AUTO [id number] 05:14:00 Test Item Value Reference Range Comments WHITE BLOOD CELL COUNT (BEAKER) (test fxmu=294) 7.8 K/ L 3.5-10.5 RED BLOOD CELL COUNT (BEAKER) (test xrah=019) 3.82 M/ L 4.63-6.08 HEMOGLOBIN (BEAKER) (test kwjl=943) 11.1 GM/DL 13.7-17.5 HEMATOCRIT (BEAKER) (test ycer=257) 33.6 % 40.1-51.0 MEAN CORPUSCULAR VOLUME (BEAKER) (test afux=624) 88.0 fL 79.0-92.2 MEAN CORPUSCULAR HEMOGLOBIN (BEAKER) (test 29.1 pg 25.7-32.2 wmck=424) MEAN CORPUSCULAR HEMOGLOBIN CONC (BEAKER) (test 33.0 GM/DL 32.3-36.5 cuiw=017) RED CELL DISTRIBUTION WIDTH (BEAKER) (test 13.7 % 11.6-14.4 zkza=276) PLATELET COUNT (BEAKER) (test espu=748) 399 K/CU MM 150-450 MEAN PLATELET VOLUME (BEAKER) (test swgv=321) 9.4 fL 9.4-12.4 NUCLEATED RED BLOOD CELLS (BEAKER) (test 0 /100 WBC 0-0 pxrb=115) NEUTROPHILS RELATIVE PERCENT (BEAKER) (test 62 % rrhg=427) LYMPHOCYTES RELATIVE PERCENT (BEAKER) (test 28 % juar=076) MONOCYTES RELATIVE PERCENT (BEAKER) (test 7 % bnav=713) EOSINOPHILS RELATIVE PERCENT (BEAKER) (test 3 % ujxc=873) BASOPHILS RELATIVE PERCENT (BEAKER) (test 0 % onpn=031) NEUTROPHILS ABSOLUTE COUNT (BEAKER) (test 4.87 K/ L 1.78-5.38 thcl=543) LYMPHOCYTES ABSOLUTE COUNT (BEAKER) (test 2.17 K/ L 1.32-3.57 msjb=484) MONOCYTES ABSOLUTE COUNT (BEAKER) (test 0.57 K/ L 0.30-0.82 nurs=058) EOSINOPHILS ABSOLUTE COUNT (BEAKER) (test 0.20 K/ L 0.04-0.54 jyck=874) BASOPHILS ABSOLUTE COUNT (BEAKER) (test 0.02 K/ L 0.01-0.08 znbz=593) IMMATURE GRANULOCYTES-RELATIVE PERCENT (BEAKER) 0 % 0-1 (test rgjp=7628) MR, ABDOMEN, [id number] 10:49:00FINAL REPORT MRI of the abdomen dated [...] hepatocellular carcinoma.2. Portal vein thrombosis. Signed: Michelle Garnerort Verified Date/Time: 12/06/2018 10:49:29 Reading Location: [facility] C013Y CT Body Reading Room CARCINOEMBRYONIC ANTIGEN (CEA)2018-12-06 07:14:00 Test Item Value Reference Range Comments CARCINOEMBRYONIC ANTIGEN (BEAKER) (test ygyl=651) 0.7 ng/mL 0.0-5.0 HEPATIC FUNCTION [id number] 07:10:00 Test Item Value Reference Range Comments TOTAL PROTEIN (BEAKER) (test oheq=106) 6.6 gm/dL 6.0-8.3 ALBUMIN (BEAKER) (test wbod=9001) 3.5 g/dL 3.5-5.0 BILIRUBIN TOTAL (BEAKER) (test hquu=789) 0.3 mg/dL 0.2-1.2 BILIRUBIN DIRECT (BEAKER) (test nslo=370) 0.1 mg/dL 0.1-0.5 ALKALINE PHOSPHATASE (BEAKER) (test ckky=201) 158 U/L 40-150 AST (SGOT) (BEAKER) (test vadf=852) 249 U/L 5-34 ALT (SGPT) (BEAKER) (test svck=305) 151 U/L 6-55 BASIC METABOLIC [id number] 07:10:00 Test Item Value Reference Range Comments SODIUM (BEAKER) (test 136 meq/L 136-145 oepu=265) POTASSIUM (BEAKER) (test 4.0 meq/L 3.5-5.1 ryxs=031) CHLORIDE (BEAKER) (test 107 meq/L 98-107 xyyi=341) CO2 (BEAKER) (test 22 meq/L 22-29 poky=147) BLOOD UREA NITROGEN 10 mg/dL 7-21 (BEAKER) (test byuv=513) CREATININE (BEAKER) (test 0.74 mg/dL 0.57-1.25 zlsp=801) GLUCOSE RANDOM (BEAKER) 86 mg/dL 70-105 (test utda=970) CALCIUM (BEAKER) (test 8.8 mg/dL 8.4-10.2 yyco=452) EGFR (BEAKER) (test 132 mL/min/1.73 sq m ESTIMATED GFR IS NOT ladv=3497) ACCURATE CREATININE CLEARANCE IN PREDICTING GLOMERULAR FILTRATION RATE. ESTIMATED GFR IS NOT APPLICABLE FOR DIALYSIS PATIENTS. [id number] 06:27:00 Test Item Value Reference Range Comments PROTIME (BEAKER) (test txai=132) 14.1 seconds 11.9-14.2 INR (BEAKER) (test szmd=341) 1.2 <=5.9 PARTIAL THROMBOPLASTIN TIME (BEAKER) (test 41.1 seconds 22.5-36.0 jmyk=779) Effective 10/21/2018: PT Reference Range ChangeNew: 11.9-14.2 Previous: 11.7- 14.7RECOMMENDED COUMADIN/WARFARIN INR THERAPY RANGESSTANDARD DOSE: 2.0-3.0 Includes: PROPHYLAXIS for venous thrombosis, systemic embolization; TREATMENT for venous thrombosis and/or pulmonary embolus.HIGH RISK: Target INR is2.5-3.5 for patients wiht mechanical heart valves.CBC W/PLT COUNT & AUTO [id number] 06:18:00 Test Item Value Reference Range Comments WHITE BLOOD CELL COUNT (BEAKER) (test wjtu=338) 7.9 K/ L 3.5-10.5 RED BLOOD CELL COUNT (BEAKER) (test pfrh=831) 3.79 M/ L 4.63-6.08 HEMOGLOBIN (BEAKER) (test egjx=310) 11.0 GM/DL 13.7-17.5 HEMATOCRIT (BEAKER) (test kbpt=608) 33.1 % 40.1-51.0 MEAN CORPUSCULAR VOLUME (BEAKER) (test lilj=291) 87.3 fL 79.0-92.2 MEAN CORPUSCULAR HEMOGLOBIN (BEAKER) (test 29.0 pg 25.7-32.2 guda=012) MEAN CORPUSCULAR HEMOGLOBIN CONC (BEAKER) (test 33.2 GM/DL 32.3-36.5 mksu=315) RED CELL DISTRIBUTION WIDTH (BEAKER) (test 13.7 % 11.6-14.4 rwec=569) PLATELET COUNT (BEAKER) (test cshu=079) 422 K/CU MM 150-450 MEAN PLATELET VOLUME (BEAKER) (test dynu=926) 9.4 fL 9.4-12.4 NUCLEATED RED BLOOD CELLS (BEAKER) (test 0 /100 WBC 0-0 xjcf=567) NEUTROPHILS RELATIVE PERCENT (BEAKER) (test 58 % qzkr=108) LYMPHOCYTES RELATIVE PERCENT (BEAKER) (test 33 % ppgf=844) MONOCYTES RELATIVE PERCENT (BEAKER) (test 7 % hhat=964) EOSINOPHILS RELATIVE PERCENT (BEAKER) (test 2 % xtyx=742) BASOPHILS RELATIVE PERCENT (BEAKER) (test 0 % tuts=784) NEUTROPHILS ABSOLUTE COUNT (BEAKER) (test 4.55 K/ L 1.78-5.38 japu=644) LYMPHOCYTES ABSOLUTE COUNT (BEAKER) (test 2.59 K/ L 1.32-3.57 wvss=314) MONOCYTES ABSOLUTE COUNT (BEAKER) (test 0.55 K/ L 0.30-0.82 fvog=673) EOSINOPHILS ABSOLUTE COUNT (BEAKER) (test 0.15 K/ L 0.04-0.54 peir=044) BASOPHILS ABSOLUTE COUNT (BEAKER) (test 0.02 K/ L 0.01-0.08 vqps=925) IMMATURE GRANULOCYTES-RELATIVE PERCENT (BEAKER) 0 % 0-1 (test ekiv=1967) HEPATITIS PANEL, [id number] 07:04:00 Test Item Value Reference Range Comments HEPATITIS A IGM ANTIBODY (BEAKER) (test Nonreactive Nonreactive wtjr=419) HEPATITIS B CORE IGM ANTIBODY (BEAKER) (test Nonreactive Nonreactive rqtc=792) HEPATITIS C ANTIBODY (BEAKER) (test mwww=329) Reactive Nonreactive HEPATITIS B SURFACE ANTIGEN (2) (BEAKER) (test Nonreactive Nonreactive bvoi=4174) [id number] 06:52:00 Test Item Value Reference Range Comments MAGNESIUM (BEAKER) (test eoji=927) 2.1 mg/dL 1.6-2.6 COMPREHENSIVE METABOLIC [id number] 06:52:00 Test Item Value Reference Range Comments TOTAL PROTEIN (BEAKER) 7.2 gm/dL 6.0-8.3 (test vfzc=786) ALBUMIN (BEAKER) (test 3.8 g/dL 3.5-5.0 vovt=0130) ALKALINE PHOSPHATASE 148 U/L 40-150 (BEAKER) (test xcaq=390) BILIRUBIN TOTAL (BEAKER) 0.3 mg/dL 0.2-1.2 (test nbzz=955) SODIUM (BEAKER) (test 131 meq/L 136-145 acyr=853) POTASSIUM (BEAKER) (test 4.0 meq/L 3.5-5.1 tuqt=421) CHLORIDE (BEAKER) (test 100 meq/L 98-107 wgxi=540) CO2 (BEAKER) (test 24 meq/L 22-29 ayfm=634) BLOOD UREA NITROGEN 12 mg/dL 7-21 (BEAKER) (test txme=371) CREATININE (BEAKER) (test 0.91 mg/dL 0.57-1.25 olyj=687) GLUCOSE RANDOM (BEAKER) 98 mg/dL 70-105 (test sott=471) CALCIUM (BEAKER) (test 8.9 mg/dL 8.4-10.2 aiyg=969) AST (SGOT) (BEAKER) (test 135 U/L 5-34 qlng=657) ALT (SGPT) (BEAKER) (test 81 U/L 6-55 fuha=802) EGFR (BEAKER) (test 104 mL/min/1.73 sq ESTIMATED GFR IS NOT vcog=3662) m ACCURATE CREATININE CLEARANCE IN PREDICTING GLOMERULAR FILTRATION RATE. ESTIMATED GFR IS NOT APPLICABLE FOR DIALYSIS PATIENTS. [id number] 05:58:00 Test Item Value Reference Range Comments PROTIME (BEAKER) (test xsqy=324) 13.9 seconds 11.9-14.2 INR (BEAKER) (test ysmv=228) 1.1 <=5.9 PARTIAL THROMBOPLASTIN TIME (BEAKER) (test 37.6 seconds 22.5-36.0 pxwl=802) Effective 10/21/2018: PT Reference Range ChangeNew: 11.9-14.2 Previous: 11.7- 14.7RECOMMENDED COUMADIN/WARFARIN INR THERAPY RANGESSTANDARD DOSE: 2.0-3.0 Includes: PROPHYLAXIS for venous thrombosis, systemic embolization; TREATMENT for venous thrombosis and/or pulmonary embolus.HIGH RISK: Target INR is2.5-3.5 for patients wiht mechanical heart valves.CBC W/PLT COUNT & AUTO [id number] 05:35:00 Test Item Value Reference Range Comments WHITE BLOOD CELL COUNT (BEAKER) (test igwo=766) 9.1 K/ L 3.5-10.5 RED BLOOD CELL COUNT (BEAKER) (test uogu=101) 4.18 M/ L 4.63-6.08 HEMOGLOBIN (BEAKER) (test hwrz=552) 12.0 GM/DL 13.7-17.5 HEMATOCRIT (BEAKER) (test pezl=520) 36.0 % 40.1-51.0 MEAN CORPUSCULAR VOLUME (BEAKER) (test enhz=787) 86.1 fL 79.0-92.2 MEAN CORPUSCULAR HEMOGLOBIN (BEAKER) (test 28.7 pg 25.7-32.2 ckbd=681) MEAN CORPUSCULAR HEMOGLOBIN CONC (BEAKER) (test 33.3 GM/DL 32.3-36.5 brfv=628) RED CELL DISTRIBUTION WIDTH (BEAKER) (test 13.4 % 11.6-14.4 oepv=167) PLATELET COUNT (BEAKER) (test wbvy=526) 477 K/CU MM 150-450 MEAN PLATELET VOLUME (BEAKER) (test aiws=878) 9.2 fL 9.4-12.4 NUCLEATED RED BLOOD CELLS (BEAKER) (test 0 /100 WBC 0-0 andr=330) NEUTROPHILS RELATIVE PERCENT (BEAKER) (test 58 % llls=874) LYMPHOCYTES RELATIVE PERCENT (BEAKER) (test 33 % crlh=045) MONOCYTES RELATIVE PERCENT (BEAKER) (test 7 % rkox=108) EOSINOPHILS RELATIVE PERCENT (BEAKER) (test 2 % ikho=506) BASOPHILS RELATIVE PERCENT (BEAKER) (test 0 % ncsd=938) NEUTROPHILS ABSOLUTE COUNT (BEAKER) (test 5.24 K/ L 1.78-5.38 ntnm=946) LYMPHOCYTES ABSOLUTE COUNT (BEAKER) (test 2.94 K/ L 1.32-3.57 izcz=675) MONOCYTES ABSOLUTE COUNT (BEAKER) (test 0.66 K/ L 0.30-0.82 lgny=990) EOSINOPHILS ABSOLUTE COUNT (BEAKER) (test 0.16 K/ L 0.04-0.54 ejrs=212) BASOPHILS ABSOLUTE COUNT (BEAKER) (test 0.03 K/ L 0.01-0.08 kxue=303) IMMATURE GRANULOCYTES-RELATIVE PERCENT (BEAKER) 0 % 0-1 (test usqu=2695) ALPHA FETOPROTEIN (AFP), TUMOR [id number] 02:51:00 Test Item Value Reference Range Comments ALPHA-FETOPROTEIN (BEAKER) (test laws=4954) > ng/mL <10.0 BLOOD [id number] 18:00:00 Test Item Value Reference Range Comments CULTURE (BEAKER) (test qfsf=9076) No growth in 5 days BLOOD [id number] 18:00:00 Test Item Value Reference Range Comments CULTURE (BEAKER) (test ngdi=4856) No growth in 5 days BLOOD [id number] 00:00:00 Test Item Value Reference Range Comments CULTURE (BEAKER) (test mqje=1850) No growth in 5 days BASIC METABOLIC [id number] 05:57:00 Test Item Value Reference Range Comments SODIUM (BEAKER) (test 139 meq/L 136-145 elnn=447) POTASSIUM (BEAKER) (test 3.5 meq/L 3.5-5.1 txqi=567) CHLORIDE (BEAKER) (test 105 meq/L 98-107 zrlo=509) CO2 (BEAKER) (test 25 meq/L 22-29 rfkn=363) BLOOD UREA NITROGEN 8 mg/dL 7-21 (BEAKER) (test xzou=318) CREATININE (BEAKER) (test 0.78 mg/dL 0.57-1.25 yuhv=824) GLUCOSE RANDOM (BEAKER) 119 mg/dL 70-105 (test knsg=353) CALCIUM (BEAKER) (test 8.9 mg/dL 8.4-10.2 vzcg=706) EGFR (BEAKER) (test 124 mL/min/1.73 sq m ESTIMATED GFR IS NOT yzjt=3898) ACCURATE CREATININE CLEARANCE IN PREDICTING GLOMERULAR FILTRATION RATE. ESTIMATED GFR IS NOT APPLICABLE FOR DIALYSIS PATIENTS. CBC W/PLT COUNT & AUTO [id number] 05:11:00 Test Item Value Reference Range Comments WHITE BLOOD CELL COUNT (BEAKER) (test fgns=653) 10.2 K/ L 3.5-10.5 RED BLOOD CELL COUNT (BEAKER) (test lywu=720) 3.90 M/ L 4.63-6.08 HEMOGLOBIN (BEAKER) (test yycs=287) 12.0 GM/DL 13.7-17.5 HEMATOCRIT (BEAKER) (test yldp=567) 35.3 % 40.1-51.0 MEAN CORPUSCULAR VOLUME (BEAKER) (test refv=189) 90.5 fL 79.0-92.2 MEAN CORPUSCULAR HEMOGLOBIN (BEAKER) (test 30.8 pg 25.7-32.2 bdqz=878) MEAN CORPUSCULAR HEMOGLOBIN CONC (BEAKER) (test 34.0 GM/DL 32.3-36.5 opdp=675) RED CELL DISTRIBUTION WIDTH (BEAKER) (test 13.3 % 11.6-14.4 aimx=253) PLATELET COUNT (BEAKER) (test pexa=814) 233 K/CU MM 150-450 MEAN PLATELET VOLUME (BEAKER) (test swru=280) 10.9 fL 9.4-12.4 NUCLEATED RED BLOOD CELLS (BEAKER) (test 0 /100 WBC 0-0 skxv=303) NEUTROPHILS RELATIVE PERCENT (BEAKER) (test 58 % ymid=229) LYMPHOCYTES RELATIVE PERCENT (BEAKER) (test 25 % nksz=995) MONOCYTES RELATIVE PERCENT (BEAKER) (test 11 % dbty=949) EOSINOPHILS RELATIVE PERCENT (BEAKER) (test 5 % zcco=153) BASOPHILS RELATIVE PERCENT (BEAKER) (test 1 % lbxz=716) NEUTROPHILS ABSOLUTE COUNT (BEAKER) (test 5.92 K/ L 1.78-5.38 ovoo=502) LYMPHOCYTES ABSOLUTE COUNT (BEAKER) (test 2.51 K/ L 1.32-3.57 krek=787) MONOCYTES ABSOLUTE COUNT (BEAKER) (test 1.12 K/ L 0.30-0.82 ekfc=056) EOSINOPHILS ABSOLUTE COUNT (BEAKER) (test 0.50 K/ L 0.04-0.54 nsba=061) BASOPHILS ABSOLUTE COUNT (BEAKER) (test 0.06 K/ L 0.01-0.08 udyq=789) IMMATURE GRANULOCYTES-RELATIVE PERCENT (BEAKER) 0 % 0-1 (test huky=0754) [id number] 07:07:00 Test Item Value Reference Range Comments PARTIAL THROMBOPLASTIN TIME (BEAKER) (test 107.0 seconds 22.5-36.0 lgec=104) [id number] 06:15:00 Test Item Value Reference Range Comments PARTIAL THROMBOPLASTIN TIME (BEAKER) (test 117.6 seconds 22.5-36.0 jcqv=023) [id number] 05:49:00 Test Item Value Reference Range Comments PARTIAL THROMBOPLASTIN TIME (BEAKER) (test 96.1 seconds 22.5-36.0 gixt=564) BASIC METABOLIC [id number] 05:21:00 Test Item Value Reference Range Comments SODIUM (BEAKER) (test 137 meq/L 136-145 itrs=364) POTASSIUM (BEAKER) (test 3.8 meq/L 3.5-5.1 neli=075) CHLORIDE (BEAKER) (test 104 meq/L 98-107 ufzp=969) CO2 (BEAKER) (test 24 meq/L 22-29 cceo=215) BLOOD UREA NITROGEN 9 mg/dL 7-21 (BEAKER) (test yboj=876) CREATININE (BEAKER) (test 0.80 mg/dL 0.57-1.25 oxpi=558) GLUCOSE RANDOM (BEAKER) 93 mg/dL 70-105 (test glwr=457) CALCIUM (BEAKER) (test 8.7 mg/dL 8.4-10.2 pcpj=413) EGFR (BEAKER) (test 121 mL/min/1.73 sq m ESTIMATED GFR IS NOT biop=8244) ACCURATE CREATININE CLEARANCE IN PREDICTING GLOMERULAR FILTRATION RATE. ESTIMATED GFR IS NOT APPLICABLE FOR DIALYSIS PATIENTS. CBC W/PLT COUNT & AUTO [id number] 04:58:00 Test Item Value Reference Range Comments WHITE BLOOD CELL COUNT (BEAKER) (test sogw=986) 11.2 K/ L 3.5-10.5 RED BLOOD CELL COUNT (BEAKER) (test qlbi=564) 3.92 M/ L 4.63-6.08 HEMOGLOBIN (BEAKER) (test vint=351) 12.0 GM/DL 13.7-17.5 HEMATOCRIT (BEAKER) (test gugd=109) 35.0 % 40.1-51.0 MEAN CORPUSCULAR VOLUME (BEAKER) (test qtvi=668) 89.3 fL 79.0-92.2 MEAN CORPUSCULAR HEMOGLOBIN (BEAKER) (test 30.6 pg 25.7-32.2 wzwh=213) MEAN CORPUSCULAR HEMOGLOBIN CONC (BEAKER) (test 34.3 GM/DL 32.3-36.5 okow=220) RED CELL DISTRIBUTION WIDTH (BEAKER) (test 13.3 % 11.6-14.4 epax=233) PLATELET COUNT (BEAKER) (test qrog=256) 222 K/CU MM 150-450 MEAN PLATELET VOLUME (BEAKER) (test dsop=304) 10.6 fL 9.4-12.4 NUCLEATED RED BLOOD CELLS (BEAKER) (test 0 /100 WBC 0-0 iokd=443) NEUTROPHILS RELATIVE PERCENT (BEAKER) (test 53 % kobu=547) LYMPHOCYTES RELATIVE PERCENT (BEAKER) (test 32 % hzzq=125) MONOCYTES RELATIVE PERCENT (BEAKER) (test 11 % tbjq=768) EOSINOPHILS RELATIVE PERCENT (BEAKER) (test 4 % zcmp=119) BASOPHILS RELATIVE PERCENT (BEAKER) (test 0 % okbs=055) NEUTROPHILS ABSOLUTE COUNT (BEAKER) (test 6.00 K/ L 1.78-5.38 xloe=942) LYMPHOCYTES ABSOLUTE COUNT (BEAKER) (test 3.57 K/ L 1.32-3.57 wnlx=199) MONOCYTES ABSOLUTE COUNT (BEAKER) (test 1.20 K/ L 0.30-0.82 frgd=133) EOSINOPHILS ABSOLUTE COUNT (BEAKER) (test 0.40 K/ L 0.04-0.54 xzaa=175) BASOPHILS ABSOLUTE COUNT (BEAKER) (test 0.03 K/ L 0.01-0.08 tytb=424) IMMATURE GRANULOCYTES-RELATIVE PERCENT (BEAKER) 0 % 0-1 (test ieds=2424) [id number] 21:35:00 Test Item Value Reference Range Comments PARTIAL THROMBOPLASTIN TIME (BEAKER) (test 89.5 seconds 22.5-36.0 obwi=288) [id number] 15:44:00 Test Item Value Reference Range Comments PARTIAL THROMBOPLASTIN TIME (BEAKER) (test 85.8 seconds 22.5-36.0 vlym=424) [id number] 09:50:00 Test Item Value Reference Range Comments PARTIAL THROMBOPLASTIN TIME (BEAKER) (test 53.6 seconds 22.5-36.0 zxkv=314) BASIC METABOLIC [id number] 06:24:00 Test Item Value Reference Range Comments SODIUM (BEAKER) (test 137 meq/L 136-145 bthi=694) POTASSIUM (BEAKER) (test 3.8 meq/L 3.5-5.1 fzvg=159) CHLORIDE (BEAKER) (test 105 meq/L 98-107 kfbu=143) CO2 (BEAKER) (test 24 meq/L 22-29 erqn=606) BLOOD UREA NITROGEN 11 mg/dL 7-21 (BEAKER) (test kmen=980) CREATININE (BEAKER) (test 0.76 mg/dL 0.57-1.25 aggk=454) GLUCOSE RANDOM (BEAKER) 94 mg/dL 70-105 (test uagq=664) CALCIUM (BEAKER) (test 8.5 mg/dL 8.4-10.2 pqmr=495) EGFR (BEAKER) (test 128 mL/min/1.73 sq m ESTIMATED GFR IS NOT yibq=2005) ACCURATE CREATININE CLEARANCE IN PREDICTING GLOMERULAR FILTRATION RATE. ESTIMATED GFR IS NOT APPLICABLE FOR DIALYSIS PATIENTS. CBC W/PLT COUNT & AUTO [id number] 06:22:00 Test Item Value Reference Range Comments WHITE BLOOD CELL COUNT (BEAKER) (test azdx=416) 12.3 K/ L 3.5-10.5 RED BLOOD CELL COUNT (BEAKER) (test mvjx=918) 4.01 M/ L 4.63-6.08 HEMOGLOBIN (BEAKER) (test deud=548) 12.1 GM/DL 13.7-17.5 HEMATOCRIT (BEAKER) (test dybk=009) 36.4 % 40.1-51.0 MEAN CORPUSCULAR VOLUME (BEAKER) (test bsja=085) 90.8 fL 79.0-92.2 MEAN CORPUSCULAR HEMOGLOBIN (BEAKER) (test 30.2 pg 25.7-32.2 qrdg=314) MEAN CORPUSCULAR HEMOGLOBIN CONC (BEAKER) (test 33.2 GM/DL 32.3-36.5 rdbs=621) RED CELL DISTRIBUTION WIDTH (BEAKER) (test 13.4 % 11.6-14.4 grsy=910) PLATELET COUNT (BEAKER) (test zmjm=292) 233 K/CU MM 150-450 MEAN PLATELET VOLUME (BEAKER) (test edoj=734) 10.7 fL 9.4-12.4 NUCLEATED RED BLOOD CELLS (BEAKER) (test 0 /100 WBC 0-0 ivrz=713) NEUTROPHILS RELATIVE PERCENT (BEAKER) (test 70 % qkkd=610) LYMPHOCYTES RELATIVE PERCENT (BEAKER) (test 21 % mhxj=646) MONOCYTES RELATIVE PERCENT (BEAKER) (test 7 % ptjg=208) EOSINOPHILS RELATIVE PERCENT (BEAKER) (test 2 % bhkr=392) BASOPHILS RELATIVE PERCENT (BEAKER) (test 0 % iclf=931) NEUTROPHILS ABSOLUTE COUNT (BEAKER) (test 8.59 K/ L 1.78-5.38 uctm=347) LYMPHOCYTES ABSOLUTE COUNT (BEAKER) (test 2.52 K/ L 1.32-3.57 krbr=609) MONOCYTES ABSOLUTE COUNT (BEAKER) (test 0.86 K/ L 0.30-0.82 ipxg=686) EOSINOPHILS ABSOLUTE COUNT (BEAKER) (test 0.23 K/ L 0.04-0.54 aiwj=623) BASOPHILS ABSOLUTE COUNT (BEAKER) (test 0.03 K/ L 0.01-0.08 scdi=975) IMMATURE GRANULOCYTES-RELATIVE PERCENT (BEAKER) 0 % 0-1 (test wmzj=4452) [id number] 17:27:00 Test Item Value Reference Range Comments ACTIVATED CLOTTING TIME 269 sec TESTED AT [facility] [address] (BEAKER) (test wkrq=577) [facility] [address] [address], CTA AAA, W/ [place].EXT.[id number] 15:50:00Please page me when done. Need stat cta for surgery. Thanks.Addendum BeginsREPORT STATUS:A Addendum: I reviewed the nonvascular features of this examination and concur with Dr. Restrepo's report. Signed: Juan Esparza MDReport Verified Date/ Time: 03/04/2018 15:50:09 Reading Location: [place] [address] Angio Body Reading RoomAddendum EndsFINAL REPORT CT [...] dynamic data set. In the right, the [place] right SFA is occluded. The right profunda [...] femoral bypass graft is identified. 3. The [place] left SFA is occluded. The right SFA [...] dictated regarding the non-vascular findings by the Licensed Pharmacist Radiologist. Signed: Shawn Restrepo MDReport Verified Date/Time: 03/04/2018 07:12:51 Reading Location: [place] [id number] MRI [id number] 10:51:00 Test Item Value Reference Range Comments PARTIAL THROMBOPLASTIN TIME (BEAKER) (test 66.0 seconds 22.5-36.0 foxq=598) BASIC METABOLIC [id number] 02:33:00 Test Item Value Reference Range Comments SODIUM (BEAKER) (test 137 meq/L 136-145 aqvx=730) POTASSIUM (BEAKER) (test 3.8 meq/L 3.5-5.1 plzz=209) CHLORIDE (BEAKER) (test 106 meq/L 98-107 tvfr=444) CO2 (BEAKER) (test 21 meq/L 22-29 nqth=878) BLOOD UREA NITROGEN 7 mg/dL 7-21 (BEAKER) (test mlnv=242) CREATININE (BEAKER) (test 0.77 mg/dL 0.57-1.25 chmt=642) GLUCOSE RANDOM (BEAKER) 96 mg/dL 70-105 (test wngu=509) CALCIUM (BEAKER) (test 9.1 mg/dL 8.4-10.2 smxp=805) EGFR (BEAKER) (test 126 mL/min/1.73 sq m ESTIMATED GFR IS NOT ejjj=4084) ACCURATE CREATININE CLEARANCE IN PREDICTING GLOMERULAR FILTRATION RATE. ESTIMATED GFR IS NOT APPLICABLE FOR DIALYSIS PATIENTS. [id number] 02:28:00 Test Item Value Reference Range Comments PARTIAL THROMBOPLASTIN TIME (BEAKER) (test 44.6 seconds 22.5-36.0 kkxq=246) CBC W/PLT COUNT & AUTO [id number] 02:20:00 Test Item Value Reference Range Comments WHITE BLOOD CELL COUNT (BEAKER) (test syhk=593) 10.5 K/ L 3.5-10.5 RED BLOOD CELL COUNT (BEAKER) (test vlah=524) 4.55 M/ L 4.63-6.08 HEMOGLOBIN (BEAKER) (test szdu=705) 14.0 GM/DL 13.7-17.5 HEMATOCRIT (BEAKER) (test ukmf=047) 40.5 % 40.1-51.0 MEAN CORPUSCULAR VOLUME (BEAKER) (test goyk=398) 89.0 fL 79.0-92.2 MEAN CORPUSCULAR HEMOGLOBIN (BEAKER) (test 30.8 pg 25.7-32.2 psfn=111) MEAN CORPUSCULAR HEMOGLOBIN CONC (BEAKER) (test 34.6 GM/DL 32.3-36.5 lvbz=006) RED CELL DISTRIBUTION WIDTH (BEAKER) (test 13.3 % 11.6-14.4 yqlk=111) PLATELET COUNT (BEAKER) (test spsq=200) 262 K/CU MM 150-450 MEAN PLATELET VOLUME (BEAKER) (test nqvh=908) 10.1 fL 9.4-12.4 NUCLEATED RED BLOOD CELLS (BEAKER) (test 0 /100 WBC 0-0 nfcz=454) NEUTROPHILS RELATIVE PERCENT (BEAKER) (test 57 % ogot=333) LYMPHOCYTES RELATIVE PERCENT (BEAKER) (test 32 % grlb=353) MONOCYTES RELATIVE PERCENT (BEAKER) (test 7 % huud=062) EOSINOPHILS RELATIVE PERCENT (BEAKER) (test 3 % ovrc=041) BASOPHILS RELATIVE PERCENT (BEAKER) (test 1 % umex=075) NEUTROPHILS ABSOLUTE COUNT (BEAKER) (test 6.00 K/ L 1.78-5.38 otwk=045) LYMPHOCYTES ABSOLUTE COUNT (BEAKER) (test 3.38 K/ L 1.32-3.57 yzug=463) MONOCYTES ABSOLUTE COUNT (BEAKER) (test 0.74 K/ L 0.30-0.82 tyuk=295) EOSINOPHILS ABSOLUTE COUNT (BEAKER) (test 0.34 K/ L 0.04-0.54 snjh=261) BASOPHILS ABSOLUTE COUNT (BEAKER) (test 0.05 K/ L 0.01-0.08 kngr=667) IMMATURE GRANULOCYTES-RELATIVE PERCENT (BEAKER) 0 % 0-1 (test sggz=5487) [id number] 23:51:00 Test Item Value Reference Range Comments PARTIAL THROMBOPLASTIN TIME (BEAKER) (test > seconds 22.5-36.0 kqih=312) [id number] 15:27:00 Test Item Value Reference Range Comments PARTIAL THROMBOPLASTIN TIME (BEAKER) (test 56.5 seconds 22.5-36.0 sllq=174) RAD, FOOT, MIN 3 VIEWS, [id number] 08:43:00Reason for exam:->Foot ulcer - r/o osteoFINAL [...] a nuclear medicine or MRI. Signed: Shantanu Ryanephomar Verified Date/Time: 03/03/2018 08:43:54 Reading Location: [facility] Radiology Reading Room [id number] 08:24:00 Test Item Value Reference Range Comments PARTIAL THROMBOPLASTIN TIME (BEAKER) (test 67.3 seconds 22.5-36.0 uhhn=546) [id number] 06:15:00 Test Item Value Reference Range Comments PARTIAL THROMBOPLASTIN TIME (BEAKER) (test 180.5 seconds 22.5-36.0 xcpq=325) Prior to initiating heparinBASIC METABOLIC [id number] 04:42:00 Test Item Value Reference Range Comments SODIUM (BEAKER) (test 139 meq/L 136-145 gwlk=624) POTASSIUM (BEAKER) (test 3.6 meq/L 3.5-5.1 asgl=148) CHLORIDE (BEAKER) (test 108 meq/L 98-107 uvkj=833) CO2 (BEAKER) (test 25 meq/L 22-29 gdpd=596) BLOOD UREA NITROGEN 8 mg/dL 7-21 (BEAKER) (test fnnd=220) CREATININE (BEAKER) (test 0.77 mg/dL 0.57-1.25 utnb=681) GLUCOSE RANDOM (BEAKER) 95 mg/dL 70-105 (test lwpe=672) CALCIUM (BEAKER) (test 8.7 mg/dL 8.4-10.2 pnfu=182) EGFR (BEAKER) (test 126 mL/min/1.73 sq m ESTIMATED GFR IS NOT udcb=2852) ACCURATE CREATININE CLEARANCE IN PREDICTING GLOMERULAR FILTRATION RATE. ESTIMATED GFR IS NOT APPLICABLE FOR DIALYSIS PATIENTS. CBC W/PLT COUNT & AUTO [id number] 04:31:00 Test Item Value Reference Range Comments WHITE BLOOD CELL COUNT (BEAKER) (test taty=239) 9.4 K/ L 3.5-10.5 RED BLOOD CELL COUNT (BEAKER) (test joqu=478) 4.41 M/ L 4.63-6.08 HEMOGLOBIN (BEAKER) (test ylzo=682) 13.4 GM/DL 13.7-17.5 HEMATOCRIT (BEAKER) (test xrjk=382) 39.5 % 40.1-51.0 MEAN CORPUSCULAR VOLUME (BEAKER) (test sicg=075) 89.6 fL 79.0-92.2 MEAN CORPUSCULAR HEMOGLOBIN (BEAKER) (test 30.4 pg 25.7-32.2 svsu=680) MEAN CORPUSCULAR HEMOGLOBIN CONC (BEAKER) (test 33.9 GM/DL 32.3-36.5 nrml=910) RED CELL DISTRIBUTION WIDTH (BEAKER) (test 13.4 % 11.6-14.4 qfyz=157) PLATELET COUNT (BEAKER) (test aifs=666) 241 K/CU MM 150-450 MEAN PLATELET VOLUME (BEAKER) (test eaei=451) 10.2 fL 9.4-12.4 NUCLEATED RED BLOOD CELLS (BEAKER) (test 0 /100 WBC 0-0 kxaa=781) NEUTROPHILS RELATIVE PERCENT (BEAKER) (test 51 % rrlv=012) LYMPHOCYTES RELATIVE PERCENT (BEAKER) (test 38 % fdpo=360) MONOCYTES RELATIVE PERCENT (BEAKER) (test 7 % brzx=845) EOSINOPHILS RELATIVE PERCENT (BEAKER) (test 4 % jvus=598) BASOPHILS RELATIVE PERCENT (BEAKER) (test 0 % kdyc=257) NEUTROPHILS ABSOLUTE COUNT (BEAKER) (test 4.77 K/ L 1.78-5.38 msnx=208) LYMPHOCYTES ABSOLUTE COUNT (BEAKER) (test 3.51 K/ L 1.32-3.57 fwyu=590) MONOCYTES ABSOLUTE COUNT (BEAKER) (test 0.67 K/ L 0.30-0.82 xxqe=921) EOSINOPHILS ABSOLUTE COUNT (BEAKER) (test 0.37 K/ L 0.04-0.54 tumr=419) BASOPHILS ABSOLUTE COUNT (BEAKER) (test 0.03 K/ L 0.01-0.08 tyoa=141) IMMATURE GRANULOCYTES-RELATIVE PERCENT (BEAKER) 0 % 0-1 (test nxcy=3972) [id number] 22:31:00 Test Item Value Reference Range Comments PARTIAL THROMBOPLASTIN TIME (BEAKER) (test 31.2 seconds 22.5-36.0 erxs=611) Prior to initiating heparinBASIC METABOLIC [id number] 18:30:00 Test Item Value Reference Range Comments SODIUM (BEAKER) (test 139 meq/L 136-145 cyvc=463) POTASSIUM (BEAKER) (test 3.6 meq/L 3.5-5.1 xevz=355) CHLORIDE (BEAKER) (test 106 meq/L 98-107 rnuw=751) CO2 (BEAKER) (test 21 meq/L 22-29 afbo=957) BLOOD UREA NITROGEN 8 mg/dL 7-21 (BEAKER) (test ltcg=116) CREATININE (BEAKER) (test 0.83 mg/dL 0.57-1.25 hlgj=557) GLUCOSE RANDOM (BEAKER) 110 mg/dL 70-105 (test edsm=499) CALCIUM (BEAKER) (test 9.7 mg/dL 8.4-10.2 znos=564) EGFR (BEAKER) (test 116 mL/min/1.73 sq m ESTIMATED GFR IS NOT xapt=6567) ACCURATE CREATININE CLEARANCE IN PREDICTING GLOMERULAR FILTRATION RATE. ESTIMATED GFR IS NOT APPLICABLE FOR DIALYSIS PATIENTS. C-REACTIVE [id number] 18:30:00 Test Item Value Reference Range Comments C-REACTIVE PROTEIN (BEAKER) (test snoh=109) 0.04 mg/dL 0.00-0.50 CBC W/PLT COUNT & AUTO [id number] 18:13:00 Test Item Value Reference Range Comments WHITE BLOOD CELL COUNT (BEAKER) (test umcm=355) 10.2 K/ L 3.5-10.5 RED BLOOD CELL COUNT (BEAKER) (test ausf=692) 4.65 M/ L 4.63-6.08 HEMOGLOBIN (BEAKER) (test mtmk=899) 14.3 GM/DL 13.7-17.5 HEMATOCRIT (BEAKER) (test vxvf=409) 40.7 % 40.1-51.0 MEAN CORPUSCULAR VOLUME (BEAKER) (test pljn=944) 87.5 fL 79.0-92.2 MEAN CORPUSCULAR HEMOGLOBIN (BEAKER) (test 30.8 pg 25.7-32.2 bpiw=386) MEAN CORPUSCULAR HEMOGLOBIN CONC (BEAKER) (test 35.1 GM/DL 32.3-36.5 zcsy=784) RED CELL DISTRIBUTION WIDTH (BEAKER) (test 13.3 % 11.6-14.4 kofn=868) PLATELET COUNT (BEAKER) (test ohhc=978) 238 K/CU MM 150-450 MEAN PLATELET VOLUME (BEAKER) (test hwtj=912) 10.1 fL 9.4-12.4 NUCLEATED RED BLOOD CELLS (BEAKER) (test 0 /100 WBC 0-0 qekt=658) NEUTROPHILS RELATIVE PERCENT (BEAKER) (test 64 % jmbl=633) LYMPHOCYTES RELATIVE PERCENT (BEAKER) (test 26 % dtjl=397) MONOCYTES RELATIVE PERCENT (BEAKER) (test 7 % oixy=950) EOSINOPHILS RELATIVE PERCENT (BEAKER) (test 2 % rjnr=969) BASOPHILS RELATIVE PERCENT (BEAKER) (test 0 % gcbh=185) NEUTROPHILS ABSOLUTE COUNT (BEAKER) (test 6.54 K/ L 1.78-5.38 rlvt=530) LYMPHOCYTES ABSOLUTE COUNT (BEAKER) (test 2.64 K/ L 1.32-3.57 njkk=625) MONOCYTES ABSOLUTE COUNT (BEAKER) (test 0.71 K/ L 0.30-0.82 kbue=750) EOSINOPHILS ABSOLUTE COUNT (BEAKER) (test 0.21 K/ L 0.04-0.54 rcmz=754) BASOPHILS ABSOLUTE COUNT (BEAKER) (test 0.04 K/ L 0.01-0.08 mcst=513) IMMATURE GRANULOCYTES-RELATIVE PERCENT (BEAKER) 0 % 0-1 (test pwlr=4218) TISSUE [id number] 14:18:00Surgical Pathology Report Case: [id number] Authorizing Provider: Greta Urban MD Collected: 09/25/2017 1609 Ordering Location: [facility] Received: 09/26/2017 0819 PERIOPERATIVE SERVICES Pathologist: Dejan Martin MD Specimens: A) - Plaque, LEFT FEMORAL PLAQUE B) -Plaque, RIGHT FEMORAL PLAQUE A. ARTERY, LEFT FEMORAL, ENDARTERECTOMY:CALCIFIC ATHEROSCLEROTIC PLAQUEB. ARTERY, RIGHT FEMORAL, ENDARTERECTOMY:CALCIFIC ATHEROSCLEROTIC PLAQUE WITH ATTACHED FIBRIN THROMBUS Signing Pathologist Direct Phone Line: [phone] signed by Dejan Martin MD on 09/30/2017 at 2:18 [id number]; [id number]. Left femoral plaque. B. Right femoral plaque Specimen A: Received in saline labeled "plaque", description "left femoral plaque" is a 2.5 x 2.5 x 0.5 cm aggregate of sinha-white to yellow-ferreira, rubbery fibrous tissue. Sectioning reveals focal calcification. Sports Medicine Physician sections are submitted in cassette A1 for decalcification.Specimen B: Received in saline labeled "plaque", description "right femoral plaque" are three irregular, sinha-white to yellow-ferreira, rubbery portions of fibrous tissue measuring 1.5 x 1.5 x 0.2 cm in aggregate. Sectioning reveals focal calcification. The specimen is entirely submitted in cassette B1 for decalcification. DB/[id number] 00:38:00 Test Item Value Reference Range Comments MAGNESIUM (BEAKER) (test rqrh=804) 2.1 mg/dL 1.6-2.6 BASIC METABOLIC [id number] 00:38:00 Test Item Value Reference Range Comments SODIUM (BEAKER) (test 136 meq/L 136-145 ibej=564) POTASSIUM (BEAKER) (test 3.8 meq/L 3.5-5.1 wlwv=012) CHLORIDE (BEAKER) (test 104 meq/L 98-107 snjs=749) CO2 (BEAKER) (test 26 meq/L 22-29 bhzb=990) BLOOD UREA NITROGEN 11 mg/dL 7-21 (BEAKER) (test vksu=987) CREATININE (BEAKER) (test 0.92 mg/dL 0.57-1.25 wpkj=323) GLUCOSE RANDOM (BEAKER) 99 mg/dL 70-105 (test dnpc=829) CALCIUM (BEAKER) (test 8.5 mg/dL 8.4-10.2 tbce=429) EGFR (BEAKER) (test 103 mL/min/1.73 sq m ESTIMATED GFR IS NOT qmqe=8870) ACCURATE CREATININE CLEARANCE IN PREDICTING GLOMERULAR FILTRATION RATE. ESTIMATED GFR IS NOT APPLICABLE FOR DIALYSIS PATIENTS. CBC W/PLT COUNT & AUTO [id number] 13:39:00 Test Item Value Reference Range Comments WHITE BLOOD CELL COUNT 14.6 K/ L 3.5-10.5 (BEAKER) (test bbuk=684) RED BLOOD CELL COUNT (BEAKER) 3.59 M/ L 4.63-6.08 (test kmrt=841) HEMOGLOBIN (BEAKER) (test 11.0 GM/DL 13.7-17.5 qqoy=891) HEMATOCRIT (BEAKER) (test 32.8 % 40.1-51.0 jkmx=370) MEAN CORPUSCULAR VOLUME 91.4 fL 79.0-92.2 (BEAKER) (test tjad=534) MEAN CORPUSCULAR HEMOGLOBIN 30.6 pg 25.7-32.2 (BEAKER) (test hqgq=515) MEAN CORPUSCULAR HEMOGLOBIN 33.5 GM/DL 32.3-36.5 CONC (BEAKER) (test iggg=713) RED CELL DISTRIBUTION WIDTH 12.9 % 11.6-14.4 (BEAKER) (test clow=784) PLATELET COUNT (BEAKER) (test 143 K/CU MM 150-450 ihid=415) MEAN PLATELET VOLUME (BEAKER) 10.8 fL 9.4-12.4 (test immn=545) NUCLEATED RED BLOOD CELLS 0 /100 WBC 0-0 (BEAKER) (test idmk=904) NEUTROPHILS RELATIVE PERCENT 66 % This is an appended report. (BEAKER) (test cnip=232) These results have been appended to a previously final verified report. LYMPHOCYTES RELATIVE PERCENT 20 % This is an appended report. (BEAKER) (test duhk=141) These results have been appended to a previously final verified report. MONOCYTES RELATIVE PERCENT 11 % This is an appended report. (BEAKER) (test xoym=750) These results have been appended to a previously final verified report. EOSINOPHILS RELATIVE PERCENT 3 % This is an appended report. (BEAKER) (test ojmz=152) These results have been appended to a previously final verified report. BASOPHILS RELATIVE PERCENT 0 % This is an appended report. (BEAKER) (test vukm=524) These results have been appended to a previously final verified report. NEUTROPHILS ABSOLUTE COUNT 9.59 K/ L 1.78-5.38 This is an appended report. (BEAKER) (test vblf=497) These results have been appended to a previously final verified report. LYMPHOCYTES ABSOLUTE COUNT 2.96 K/ L 1.32-3.57 This is an appended report. (BEAKER) (test jxzj=106) These results have been appended to a previously final verified report. MONOCYTES ABSOLUTE COUNT 1.59 K/ L 0.30-0.82 This is an appended report. (BEAKER) (test qimc=060) These results have been appended to a previously final verified report. EOSINOPHILS ABSOLUTE COUNT 0.37 K/ L 0.04-0.54 This is an appended report. (BEAKER) (test bqkw=891) These results have been appended to a previously final verified report. BASOPHILS ABSOLUTE COUNT 0.04 K/ L 0.01-0.08 This is an appended report. (BEAKER) (test akzp=651) These results have been appended to a previously final verified report. IMMATURE GRANULOCYTES-RELATIVE 1 % 0-1 This is an appended report. PERCENT (BEAKER) (test These results have been oboe=1860) appended to a previously final verified report. POCT-GLUCOSE [id number] 09:12:00 Test Item Value Reference Range Comments POC-GLUCOSE METER (BEAKER) 81 mg/dL 70-110 TESTED AT [address] (test ilyr=5912) [place] [address] BASIC METABOLIC [id number] 05:02:00 Test Item Value Reference Range Comments SODIUM (BEAKER) (test 136 meq/L 136-145 jdnl=248) POTASSIUM (BEAKER) (test 3.8 meq/L 3.5-5.1 qmdu=072) CHLORIDE (BEAKER) (test 105 meq/L 98-107 alfa=991) CO2 (BEAKER) (test 25 meq/L 22-29 wghl=368) BLOOD UREA NITROGEN 9 mg/dL 7-21 (BEAKER) (test mwml=195) CREATININE (BEAKER) (test 0.82 mg/dL 0.57-1.25 mrds=465) GLUCOSE RANDOM (BEAKER) 89 mg/dL 70-105 (test xrgw=395) CALCIUM (BEAKER) (test 8.3 mg/dL 8.4-10.2 lwpx=891) EGFR (BEAKER) (test 117 mL/min/1.73 sq m ESTIMATED GFR IS NOT azrz=7930) ACCURATE CREATININE CLEARANCE IN PREDICTING GLOMERULAR FILTRATION RATE. ESTIMATED GFR IS NOT APPLICABLE FOR DIALYSIS PATIENTS. POCT-GLUCOSE [id number] 21:22:00 Test Item Value Reference Range Comments POC-GLUCOSE METER (BEAKER) 121 mg/dL 70-110 TESTED AT [address] (test bhjo=6289) [place] [address] [id number] 04:30:00 Test Item Value Reference Range Comments PHOSPHORUS (BEAKER) (test ziff=434) 2.7 mg/dL 2.3-4.7 [id number] 04:30:00 Test Item Value Reference Range Comments MAGNESIUM (BEAKER) (test hcka=510) 2.5 mg/dL 1.6-2.6 BASIC METABOLIC [id number] 04:30:00 Test Item Value Reference Range Comments SODIUM (BEAKER) (test 134 meq/L 136-145 zvtk=481) POTASSIUM (BEAKER) (test 3.8 meq/L 3.5-5.1 djbc=015) CHLORIDE (BEAKER) (test 104 meq/L 98-107 ggba=578) CO2 (BEAKER) (test 22 meq/L 22-29 cmqi=481) BLOOD UREA NITROGEN 13 mg/dL 7-21 (BEAKER) (test qlha=703) CREATININE (BEAKER) (test 0.96 mg/dL 0.57-1.25 teqc=657) GLUCOSE RANDOM (BEAKER) 115 mg/dL 70-105 (test lzum=956) CALCIUM (BEAKER) (test 8.2 mg/dL 8.4-10.2 tpge=989) EGFR (BEAKER) (test 98 mL/min/1.73 sq m ESTIMATED GFR IS NOT bmqf=4777) ACCURATE CREATININE CLEARANCE IN PREDICTING GLOMERULAR FILTRATION RATE. ESTIMATED GFR IS NOT APPLICABLE FOR DIALYSIS PATIENTS. LACTIC ACID, ARTERIAL, WHOLE [id number] 04:15:00 Test Item Value Reference Range Comments LACTATE BLOOD ARTERIAL (2) (BEAKER) (test 1.0 mmol/L 0.5-2.2 bczk=1715) Effective 09/27/2015: Units/Reference Range ChangeNew: 0.5-2.2 mmol/L Previous: 5 -20 mg/dLCBC W/PLT COUNT & AUTO [id number] 04:12:00 Test Item Value Reference Range Comments WHITE BLOOD CELL COUNT (BEAKER) (test qrnt=559) 16.5 K/ L 3.5-10.5 RED BLOOD CELL COUNT (BEAKER) (test jlje=298) 4.08 M/ L 4.63-6.08 HEMOGLOBIN (BEAKER) (test xbtn=056) 12.5 GM/DL 13.7-17.5 HEMATOCRIT (BEAKER) (test hxnu=361) 36.9 % 40.1-51.0 MEAN CORPUSCULAR VOLUME (BEAKER) (test twkn=702) 90.4 fL 79.0-92.2 MEAN CORPUSCULAR HEMOGLOBIN (BEAKER) (test 30.6 pg 25.7-32.2 qztq=897) MEAN CORPUSCULAR HEMOGLOBIN CONC (BEAKER) (test 33.9 GM/DL 32.3-36.5 rmbs=056) RED CELL DISTRIBUTION WIDTH (BEAKER) (test 12.8 % 11.6-14.4 iufu=858) PLATELET COUNT (BEAKER) (test ftvt=336) 183 K/CU MM 150-450 MEAN PLATELET VOLUME (BEAKER) (test oiqv=125) 10.2 fL 9.4-12.4 NUCLEATED RED BLOOD CELLS (BEAKER) (test 0 /100 WBC 0-0 qayy=320) NEUTROPHILS RELATIVE PERCENT (BEAKER) (test 80 % omtd=151) LYMPHOCYTES RELATIVE PERCENT (BEAKER) (test 11 % csug=129) MONOCYTES RELATIVE PERCENT (BEAKER) (test 8 % vitp=993) EOSINOPHILS RELATIVE PERCENT (BEAKER) (test 1 % zenu=507) BASOPHILS RELATIVE PERCENT (BEAKER) (test 0 % pnvc=685) NEUTROPHILS ABSOLUTE COUNT (BEAKER) (test 13.15 K/ L 1.78-5.38 shoy=804) LYMPHOCYTES ABSOLUTE COUNT (BEAKER) (test 1.85 K/ L 1.32-3.57 xscg=549) MONOCYTES ABSOLUTE COUNT (BEAKER) (test 1.36 K/ L 0.30-0.82 hvns=203) EOSINOPHILS ABSOLUTE COUNT (BEAKER) (test 0.10 K/ L 0.04-0.54 ekdv=004) BASOPHILS ABSOLUTE COUNT (BEAKER) (test 0.03 K/ L 0.01-0.08 xenk=251) IMMATURE GRANULOCYTES-RELATIVE PERCENT (BEAKER) 0 % 0-1 (test gulv=6795) CALCIUM, [id number] 03:51:00 Test Item Value Reference Range Comments CALCIUM IONIZED (BEAKER) (test ciof=947) 1.08 mmol/L 1.12-1.27 PH, BLOOD (BEAKER) (test rujc=5416) 7.41 POCT-GLUCOSE [id number] 22:24:00 Test Item Value Reference Range Comments POC-GLUCOSE METER (BEAKER) 159 mg/dL 70-110 TESTED AT [facility] [address] [facility] (test uksj=5688) [facility] [address] RAD, CHEST, 1 VIEW, NON [id number] 19:01:00Reason for exam:->central line placement Should this [...] MDReport Verified Date/Time: 2017 19:01:26 Reading Location: [address] Consult Reading Room [id number] 18:09:00 Test Item Value Reference Range Comments PHOSPHORUS (BEAKER) (test jxmg=258) 3.1 mg/dL 2.3-4.7 [id number] 18:09:00 Test Item Value Reference Range Comments MAGNESIUM (BEAKER) (test fxzy=725) 1.7 mg/dL 1.6-2.6 BASIC METABOLIC [id number] 18:09:00 Test Item Value Reference Range Comments SODIUM (BEAKER) (test 137 meq/L 136-145 joqt=980) POTASSIUM (BEAKER) (test 3.9 meq/L 3.5-5.1 tzkr=465) CHLORIDE (BEAKER) (test 108 meq/L 98-107 ocrb=034) CO2 (BEAKER) (test 23 meq/L 22-29 hxng=943) BLOOD UREA NITROGEN 14 mg/dL 7-21 (BEAKER) (test irpa=284) CREATININE (BEAKER) (test 0.95 mg/dL 0.57-1.25 ahqu=363) GLUCOSE RANDOM (BEAKER) 231 mg/dL 70-105 (test lxip=559) CALCIUM (BEAKER) (test 8.1 mg/dL 8.4-10.2 dwvi=874) EGFR (BEAKER) (test 99 mL/min/1.73 sq m ESTIMATED GFR IS NOT avko=6477) ACCURATE CREATININE CLEARANCE IN PREDICTING GLOMERULAR FILTRATION RATE. ESTIMATED GFR IS NOT APPLICABLE FOR DIALYSIS PATIENTS. PROTHROMBIN [id number] 18:01:00 Test Item Value Reference Range Comments PROTIME (BEAKER) (test gucu=936) 15.8 seconds 11.7-14.7 INR (BEAKER) (test jvkc=881) 1.3 <=5.9 RECOMMENDED COUMADIN/WARFARIN INR THERAPY RANGESSTANDARD DOSE: 2.0 - 3.0 Includes: PROPHYLAXIS forvenous thrombosis, systemic embolization; TREATMENT for venous thrombosis and/or pulmonary embolus.HIGH RISK: Target INR is 2.5-3.5 for patients with mechanical heart valves.[id number] 18:01:00 Test Item Value Reference Range Comments FIBRINOGEN LEVEL (BEAKER) (test fzkb=391) 354 mg/dl 225-434 [id number] 18:01:00 Test Item Value Reference Range Comments PARTIAL THROMBOPLASTIN TIME (BEAKER) (test 34.5 seconds 22.5-36.0 isre=947) CBC W/PLT COUNT & AUTO [id number] 17:52:00 Test Item Value Reference Range Comments WHITE BLOOD CELL COUNT (BEAKER) (test jial=642) 21.1 K/ L 3.5-10.5 RED BLOOD CELL COUNT (BEAKER) (test nxna=666) 4.68 M/ L 4.63-6.08 HEMOGLOBIN (BEAKER) (test tzqq=312) 14.3 GM/DL 13.7-17.5 HEMATOCRIT (BEAKER) (test cgdy=740) 42.8 % 40.1-51.0 MEAN CORPUSCULAR VOLUME (BEAKER) (test vxpe=031) 91.5 fL 79.0-92.2 MEAN CORPUSCULAR HEMOGLOBIN (BEAKER) (test 30.6 pg 25.7-32.2 yadw=217) MEAN CORPUSCULAR HEMOGLOBIN CONC (BEAKER) (test 33.4 GM/DL 32.3-36.5 pish=726) RED CELL DISTRIBUTION WIDTH (BEAKER) (test 13.0 % 11.6-14.4 ytcf=134) PLATELET COUNT (BEAKER) (test uzrn=640) 216 K/CU MM 150-450 MEAN PLATELET VOLUME (BEAKER) (test gxin=529) 10.3 fL 9.4-12.4 NUCLEATED RED BLOOD CELLS (BEAKER) (test 0 /100 WBC 0-0 lhke=382) NEUTROPHILS RELATIVE PERCENT (BEAKER) (test 65 % vnfo=568) LYMPHOCYTES RELATIVE PERCENT (BEAKER) (test 24 % pamf=554) MONOCYTES RELATIVE PERCENT (BEAKER) (test 7 % soia=291) EOSINOPHILS RELATIVE PERCENT (BEAKER) (test 3 % rbzd=013) BASOPHILS RELATIVE PERCENT (BEAKER) (test 0 % ahua=220) NEUTROPHILS ABSOLUTE COUNT (BEAKER) (test 13.75 K/ L 1.78-5.38 ratu=403) LYMPHOCYTES ABSOLUTE COUNT (BEAKER) (test 4.96 K/ L 1.32-3.57 xlqv=505) MONOCYTES ABSOLUTE COUNT (BEAKER) (test 1.37 K/ L 0.30-0.82 gwql=118) EOSINOPHILS ABSOLUTE COUNT (BEAKER) (test 0.69 K/ L 0.04-0.54 tlvw=583) BASOPHILS ABSOLUTE COUNT (BEAKER) (test 0.05 K/ L 0.01-0.08 hqzu=988) IMMATURE GRANULOCYTES-RELATIVE PERCENT (BEAKER) 1 % 0-1 (test lvel=2142) HEMOGLOBIN [id number] 14:43:00 Test Item Value Reference Range Comments HEMOGLOBIN A1C (BEAKER) (test zgse=984) 5.6 % 4.3-6.1 BASIC METABOLIC [id number] 12:35:00 Test Item Value Reference Range Comments SODIUM (BEAKER) (test 141 meq/L 136-145 iibg=277) POTASSIUM (BEAKER) (test 4.1 meq/L 3.5-5.1 grys=919) CHLORIDE (BEAKER) (test 105 meq/L 98-107 vaiz=420) CO2 (BEAKER) (test 28 meq/L 22-29 tdvb=013) BLOOD UREA NITROGEN 9 mg/dL 7-21 (BEAKER) (test nwab=112) CREATININE (BEAKER) (test 0.82 mg/dL 0.57-1.25 qggy=680) GLUCOSE RANDOM (BEAKER) 89 mg/dL 70-105 (test nnmi=270) CALCIUM (BEAKER) (test 9.5 mg/dL 8.4-10.2 cpyq=938) EGFR (BEAKER) (test 117 mL/min/1.73 sq m ESTIMATED GFR IS NOT npzf=7504) ACCURATE CREATININE CLEARANCE IN PREDICTING GLOMERULAR FILTRATION RATE. ESTIMATED GFR IS NOT APPLICABLE FOR DIALYSIS PATIENTS. PROTHROMBIN [id number] 12:32:00 Test Item Value Reference Range Comments PROTIME (BEAKER) (test pfwu=541) 13.7 seconds 11.7-14.7 INR (BEAKER) (test irkq=183) 1.1 <=5.9 RECOMMENDED COUMADIN/WARFARIN INR THERAPY RANGESSTANDARD DOSE: 2.0 - 3.0 Includes: PROPHYLAXIS forvenous thrombosis, systemic embolization; TREATMENT for venous thrombosis and/or pulmonary embolus.HIGH RISK: Target INR is 2.5-3.5 for patients with mechanical heart valves.RAD, CHEST, 2 [id number] 12:21: 00Reason for Exam:->Pre-OpFINAL REPORT Chest two views INDICATION: Preoperative exam. Aortic iliac disease, femoral popliteal artery atherosclerosis COMPARISON: None available IMPRESSION: There is no focal consolidation, vascular congestion, pleural effusion, or pneumothorax. The cardiomediastinal silhouette is unremarkable. There are mild degenerative spine and shoulder changes. Signed: Yaw Lay MDReport Verified Date/Time: 09/16/2017 12:21:59 Reading Location: [facility] Radiology Reading Room CBC W/ PLT COUNT & AUTO [id number] 12:19:00 Test Item Value Reference Range Comments WHITE BLOOD CELL COUNT (BEAKER) (test fpru=137) 8.6 K/ L 3.5-10.5 RED BLOOD CELL COUNT (BEAKER) (test wxal=614) 5.05 M/ L 4.63-6.08 HEMOGLOBIN (BEAKER) (test yafp=729) 15.4 GM/DL 13.7-17.5 HEMATOCRIT (BEAKER) (test ghum=406) 47.1 % 40.1-51.0 MEAN CORPUSCULAR VOLUME (BEAKER) (test werl=183) 93.3 fL 79.0-92.2 MEAN CORPUSCULAR HEMOGLOBIN (BEAKER) (test 30.5 pg 25.7-32.2 gorb=450) MEAN CORPUSCULAR HEMOGLOBIN CONC (BEAKER) (test 32.7 GM/DL 32.3-36.5 srex=198) RED CELL DISTRIBUTION WIDTH (BEAKER) (test 13.0 % 11.6-14.4 qekl=813) PLATELET COUNT (BEAKER) (test qjhk=647) 272 K/CU MM 150-450 MEAN PLATELET VOLUME (BEAKER) (test jrmx=934) 10.6 fL 9.4-12.4 NUCLEATED RED BLOOD CELLS (BEAKER) (test 0 /100 WBC 0-0 nhhp=977) NEUTROPHILS RELATIVE PERCENT (BEAKER) (test 55 % emfy=941) LYMPHOCYTES RELATIVE PERCENT (BEAKER) (test 33 % hjvx=703) MONOCYTES RELATIVE PERCENT (BEAKER) (test 6 % xjti=186) EOSINOPHILS RELATIVE PERCENT (BEAKER) (test 5 % bwcg=191) BASOPHILS RELATIVE PERCENT (BEAKER) (test 0 % ktrw=124) NEUTROPHILS ABSOLUTE COUNT (BEAKER) (test 4.70 K/ L 1.78-5.38 fjka=318) LYMPHOCYTES ABSOLUTE COUNT (BEAKER) (test 2.83 K/ L 1.32-3.57 ognm=830) MONOCYTES ABSOLUTE COUNT (BEAKER) (test 0.51 K/ L 0.30-0.82 xywn=027) EOSINOPHILS ABSOLUTE COUNT (BEAKER) (test 0.46 K/ L 0.04-0.54 mfag=777) BASOPHILS ABSOLUTE COUNT (BEAKER) (test 0.03 K/ L 0.01-0.08 jafy=329) IMMATURE GRANULOCYTES-RELATIVE PERCENT (BEAKER) 0 % 0-1 (test ghtx=3422)
[2019-01-21] MEDS ORDERED: FAMOTIDINE 20 MG/2 ML VIAL IV ONE (14:06)
[2019-01-21] MEDS ORDERED: MORPHINE 2 MG/ML SYR ONE ×2 (14:06→17:05)
[2019-01-21 14:43] LABS: ALT/SGPT 142 U/L (12-78); Albumin 2.9 g/dL (3.4-5.0); Alkaline Phosphatase 237 U/L (45-117); BUN Blood Urea Nitrogen 14 mg/dL (7-18); Bicarbonate 24 mmol/L (21-32); Bilirubin Direct 0.3 mg/dL (0-0.2); Bilirubin Total 0.5 mg/dL (0.2-1.0); Glucose Level 101 mg/dL (74-106); Lipase 140 U/L (73-393); Potassium 3.6 mmol/L (3.5-5.1); Sodium Level 142 mmol/L (136-145)
[2019-01-21 14:51] LABS: Absolute Lymphocytes (CBC) 2.5 K/uL (0.7-4.9); Basophils % 1.5 % (0-1.3); Hematocrit 25.7 % (39.6-49.0); Lymphocytes % 16.6 % (15.3-44.8); MPV 7.9 fL (7.6-11.3); RBC Red Blood Cell Count 2.93 M/uL (4.33-5.43)
[2019-01-21 14:52] LABS: AST/SGOT 770 U/L (15-37)
--- NOTE | 2019-01-21 16:56 | RAD REPORT ---
EXAM DESCRIPTION: CT - Abdomen Pelvis W Contrast - 01/21/2019 4:17 pm CLINICAL HISTORY: black tarry stools, vomiting, abd pain. COMPARISON: None. TECHNIQUE: Biphasic, helical CT imaging of the abdomen and pelvis was performed following 100 ml non -ionic IV contrast. No oral contrast. All CT scans are performed using dose optimization technique as appropriate and may include automated exposure control or mA/KV adjustment according to patient size. FINDINGS: No suspicious findings in the lung bases. Pronounced hepatomegaly is present with substantial mass effect displacing the upper abdominal struct ures. There is pronounced nodular capsular contour throughout the liver parenchyma. Extensive heterog eneity of the parenchyma noted. There is evidence for large mass lesion in the inferior right lobe. P atient does give a history of recent diagnosis of liver cancer. Patient also gives history of cirrhos is. No portal vein thrombus seen. No splenomegaly or focal splenic finding. Pancreas is distorted by the enlarged liver. Pancreatic duct dilatation in the body of the pancreas is likely from extrinsic m ass effect. Biliary tree dilatation is not identified. No gallbladder abnormality. Symmetric renal function is seen with no hydronephrosis or suspicious renal mass. No pyelonephritis o r acute parenchymal process. No bladder abnormalities. No adrenal abnormalities. Fluid-filled stomach is present. There is extrinsic mass effect by the liver on the gastric antrum an d proximal duodenum. No small bowel dilatation. Patient has numerous fluid-filled small bowel loops. No acute colon process identified. No free air, free fluid or inflammatory stranding. No bulky lymphadenopathy. No omental thickening. Disc and bone degenerative changes are present. No pathologic bone process seen. No acute vascular fi nding. IMPRESSION: Pronounced hepatomegaly with cirrhosis changes identifiable. There is a large irregular mass effect in the inferior right lobe of the liver. This matches the patient provided history of cir rhosis and liver cancer. The enlarged liver causes mass effect on the stomach and duodenum. No acute colon or small bowel finding.
[2019-01-21 17:51] LABS: Platelet Estimate INCR
[2019-01-21 17:57] LABS: Anisocytosis 1+; Blood Morphology Comment NOTED (NOT SEEN); Hypochromasia 1+; Poikilocytosis SLIGHT; Polychromasia 1+
--- NOTE | 2019-01-21 18:59 | ER ---
Nurse's Notes [facility] Name: Noé Garcia Age: 58 yrs Sex: Male : 1960 Arrival Date: 01/21/2019 Time: 11:36 Bed 19 Private MD: Diagnosis: Hematochizia, GI Bleed, vomiting Presentation: 01/21 11:49 Presenting complaint: states: "He has been vomiting for the past 3 days. I called aj1 his doctor and they said to bring him and when he has a bowel movement its black and his left side started hurting. He was just diagnosed with liver cancer.". Transition of care: patient was not received from another setting of care. Onset of symptoms was December 2017. Risk Assessment: Do you want to hurt yourself or someone else? Patient reports no desire to harm self or others. Initial Sepsis Screen: Does the patient meet any 2 criteria? HR > 90 bpm. No. Patient's initial sepsis screen is negative. Does the patient have a suspected source of infection? No. Patient's initial sepsis screen is negative. Care prior to arrival: None. 11:49 Method Of Arrival: Wheelchair aj1 11:49 Acuity: BINH 3 aj1 Triage Assessment: 11:51 General: Appears uncomfortable, Behavior is calm, cooperative, appropriate for age. aj1 Pain: Complains of pain in anterior aspect of left lateral abdomen Pain currently is 9 out of 10 on a pain scale. Neuro: Level of Consciousness is awake, alert, obeys commands. Cardiovascular: Patient's skin is warm and dry. Respiratory: Airway is patent Respiratory effort is even, unlabored, Respiratory pattern is regular, symmetrical. GI: Reports vomiting, dark stools. Historical: - Allergies: 11:51 No Known Allergies; aj1 - PMHx: 11:51 Cirrhosis; Hypertension; liver cancer; aj1 - PSHx: 11:51 stents in legs; aj1 - Immunization history:: Adult Immunizations up to date. - Ebola Screening: : Patient denies travel to an Ebola-affected area in the 21 days before illness onset. - Social history:: Smoking status: Patient/guardian denies using tobacco. Screenin:42 Abuse screen: Denies threats or abuse. Denies injuries from another. Nutritional bp screening: No deficits noted. Tuberculosis screening: No symptoms or risk factors identified. Fall Risk None identified. Assessment: 12:41 General: SEE TRIAGE NOTE. GI: Reports nausea, vomiting. bp 14:38 Reassessment: ALL CURRENT ORDERS COMPLETED, RESULTS PENDING FOR DISPO. bp 16:07 Reassessment: PT TO CT, TRANSFER IN PROCESS. GI: Abdomen is non-distended. bp 17:24 Reassessment: REPORT TO JIM EVANS AT [facility], TRANSPORT PENDING. bp 18:12 Reassessment: EMS AT B/S, PT EVIE. bp Vital Signs: 11:51 BP 126 / 73; Pulse 91; Resp 18; Temp 99.3; Pulse Ox 100% on R/A; Weight 48.53 kg (R); aj1 Height 5 ft. 7 in. (170.18 cm) (R); Pain 9/10; 13:57 BP 132 / 93; Pulse 96; Resp 18; Pulse Ox 100% ; bp 14:38 BP 136 / 88; Pulse 95; Resp 19; Pulse Ox 100% ; bp 16:08 BP 139 / 80; Pulse 94; Resp 16; Pulse Ox 100% ; bp 18:05 BP 138 / 88; Pulse 100; Resp 16; Temp 99; Pulse Ox 100% ; bp 11:51 Body Mass Index 16.76 (48.53 kg, 170.18 cm) aj1 ED Course: 11:36 Patient arrived in ED. mr 11:50 Triage completed. aj1 11:51 Arm band placed on Patient placed in waiting room, Patient notified of wait time. aj1 12:41 Justin Dc, RN is Primary Nurse. bp 12:42 Patient has correct armband on for positive identification. Bed in low position. Call bp light in reach. Side rails up X2. 13:18 Eric Nelson MD is Attending Physician. kdr 13:57 Inserted saline lock: 22 gauge in right forearm, using aseptic technique. Blood bp collected. 14:52 Notified ED physician of a critical lab result(s). AST 770. ss 15:46 initiated a transfer with Radha at the [facility] transfer center. eb 16:[address] Ernandez the GI neonatal social worker from [facility] with for patient eb transfer consultation. 16:[address] via stretcher. nj 16:21 connected the hospitalist neonatal social worker for [facility] with Leslie Livingston for patient eb transfer consultation. 16:49 administrative approval given by Radha Damico RN/ Patient has been accepted to [facility] 9 tower 946/ Dr. Ran Laird has accepted the patient in transfer/ report to be called to [phone]. 18:05 No provider procedures requiring assistance completed. Patient transferred, IV remains bp in place. Administered Medications: 14:10 Drug: Pepcid 20 mg Route: IVP; Site: right forearm; bp 17:03 Follow up: Response: No adverse reaction bp 14:10 Drug: morphine 2 mg Route: IVP; Site: right forearm; bp 17:07 Drug: morphine 2 mg Route: IVP; Site: right forearm; bp 17:07 Follow up: Response: Pain is decreased bp Outcome: 15:42 ER care complete, transfer ordered by . kdr 18:05 Transferred by ground EMS to [facility], Transfer form completed. bp 18:05 Condition: stable 18:05 Instructed on the need for transfer. 18:12 Patient left the ED. bp Signatures: Sonia Fletcher RN RN aj1 Eric Nelson MD MD kdr Rivera, Mary mr Smirch, Shelby, RN RN ss Jordan, Nathan nj Peltier, Brian, RN RN bp Botello, Elizabeth eb
--- NOTE | 2019-01-21 19:00 | EDPHYS ---
Physician Documentation [facility] Name: Noé Garcia Age: 58 yrs Sex: Male : 1960 Arrival Date: 01/21/2019 Time: 11:36 Bed 19 Private MD: ED Physician Eric Nelson HPI: 01/21 15:42 This 58 yrs old Black Male presents to ER via Wheelchair with complaints of Vomiting, kdr Black/Tarry Stools. 15:42 The patient presents to the emergency department with nausea, that is mild, vomiting, kdr that is intermittent, abdominal pain, of the anterior aspect of right lateral abdomen and right upper quadrant. Onset: The symptoms/episode began/occurred gradually, 3 day(s) ago. Possible causes: unknown. The symptoms are aggravated by nothing. food , The symptoms are alleviated by nothing. Associated signs and symptoms: Pertinent positives: Black stools. Severity of symptoms: At their worst the symptoms were mild in the emergency department the symptoms. The patient has not experienced similar symptoms in the past. The patient has not recently seen a physician. 15:42 The patient was diagnosed with Live CA in early November. kdr Historical: - Allergies: 11:51 No Known Allergies; aj1 - PMHx: 11:51 Cirrhosis; Hypertension; liver cancer; aj1 - PSHx: 11:51 stents in legs; aj1 - Immunization history:: Adult Immunizations up to date. - Ebola Screening: : Patient denies travel to an Ebola-affected area in the 21 days before illness onset. - Social history:: Smoking status: Patient/guardian denies using tobacco. ROS: 15:42 Constitutional: Negative for fever, chills, and weight loss, Eyes: Negative for injury, kdr pain, redness, and discharge, ENT: Negative for injury, pain, and discharge, Neck: Negative for injury, pain, and swelling, Cardiovascular: Negative for chest pain, palpitations, and edema, Respiratory: Negative for shortness of breath, cough, wheezing, and pleuritic chest pain, Back: Negative for injury and pain, : Negative for injury, bleeding, discharge, and swelling, MS/Extremity: Negative for injury and deformity, Skin: Negative for injury, rash, and discoloration, Neuro: Negative for headache, weakness, numbness, tingling, and seizure activity. Psych: Negative for depression, anxiety, suicide ideation, homicidal ideation, and hallucinations, Allergy/Immunology: Negative for hives, rash, and allergies, Endocrine: Negative for neck swelling, polydipsia, polyuria, polyphagia, and marked weight changes, Hematologic/Lymphatic: Negative for swollen nodes, abnormal bleeding, and unusual bruising. 15:42 Abdomen/GI: Positive for abdominal pain, nausea and vomiting, vomiting, black/tarry stool, Negative for constipation, anorexia, dysphagia, hematemesis, bowel incontinence. Exam: 15:42 Constitutional: This is a well developed, well nourished patient who is awake, alert, kdr and in no acute distress. Head/Face: Normocephalic, atraumatic. Eyes: Pupils equal round and reactive to light, extra-ocular motions intact. Lids and lashes normal. Conjunctiva and sclera are non-icteric and not injected. Cornea within normal limits. Periorbital areas with no swelling, redness, or edema. Neck: Trachea midline, no thyromegaly or masses palpated, and no cervical lymphadenopathy. Supple, full range of motion without nuchal rigidity, or vertebral point tenderness. No Meningismus. Chest/axilla: Normal chest wall appearance and motion. Nontender with no deformity. No lesions are appreciated. Cardiovascular: Regular rate and rhythm with a normal S1 and S2. No gallops, murmurs, or rubs. Normal PMI, no JVD. No pulse deficits. Respiratory: Lungs have equal breath sounds bilaterally, clear to auscultation and percussion. No rales, rhonchi or wheezes noted. No increased work of breathing, no retractions or nasal flaring. Back: No spinal tenderness. No costovertebral tenderness. Full range of motion. Skin: Warm, dry with normal turgor. Normal color with no rashes, no lesions, and no evidence of cellulitis. MS/ Extremity: Pulses equal, no cyanosis. Neurovascular intact. Full, normal range of motion. Neuro: Awake and alert, GCS 15, oriented to person, place, time, and situation. Cranial nerves II-XII grossly intact. Motor strength 5/5 in all extremities. Sensory grossly intact. Cerebellar exam normal. Normal gait. Psych: Awake, alert, with orientation to person, place and time. Behavior, mood, and affect are within normal limits. 15:42 Abdomen/GI: Inspection: abdomen appears normal, Bowel sounds: diminished, in all quadrants, Palpation: soft, mild abdominal tenderness, in the anterior aspect of right lateral abdomen and right upper quadrant, Rectal exam: Prostate: normal, rectal tone normal, Stool: guaiac positive, black. Vital Signs: 11:51 BP 126 / 73; Pulse 91; Resp 18; Temp 99.3; Pulse Ox 100% on R/A; Weight 48.53 kg (R); aj1 Height 5 ft. 7 in. (170.18 cm) (R); Pain 9/10; 13:57 BP 132 / 93; Pulse 96; Resp 18; Pulse Ox 100% ; bp 14:38 BP 136 / 88; Pulse 95; Resp 19; Pulse Ox 100% ; bp 16:08 BP 139 / 80; Pulse 94; Resp 16; Pulse Ox 100% ; bp 18:05 BP 138 / 88; Pulse 100; Resp 16; Temp 99; Pulse Ox 100% ; bp 11:51 Body Mass Index 16.76 (48.53 kg, 170.18 cm) 1 MDM: 15:42 Patient medically screened. kdr 15:42 Data reviewed: vital signs, nurses notes, lab test result(s), radiologic studies. kdr Counseling: I had a detailed discussion with the patient and/or guardian regarding: the historical points, exam findings, and any diagnostic results supporting the discharge/admit diagnosis, lab results, radiology results, the need to transfer to another facility. 01/21 13:19 Order name: Basic Metabolic Panel [facility] 01/21 13:19 Order name: CBC with Diff [facility] 01/21 13:19 Order name: Creatinine for Radiology [facility] 01/21 13:19 Order name: Hepatic Function [facility] 01/21 13:19 Order name: Lipase [facility] 01/21 13:19 Order name: Type And Screen [facility] 01/21 13:19 Order name: IV Saline Lock; Complete Time: 13:57 [facility] 01/21 13:19 Order name: Labs collected and sent; Complete Time: 13:57 [facility] 01/21 15:37 Order name: CT Abd/Pelvis - IV Contrast Only kdr Administered Medications: 14:10 Drug: Pepcid 20 mg Route: IVP; Site: right forearm; bp 17:03 Follow up: Response: No adverse reaction bp 14:10 Drug: morphine 2 mg Route: IVP; Site: right forearm; bp 17:07 Drug: morphine 2 mg Route: IVP; Site: right forearm; bp 17:07 Follow up: Response: Pain is decreased bp Disposition: 01/21/19 15:42 Transfer ordered to [facility]. Diagnosis is Hematochizia, GI Bleed, vomiting. - Reason for transfer: Higher level of care. - Accepting physician is [facility]. - Condition is Fair. - Problem is new. - Symptoms have improved. Signatures: Dispatcher [employer] EDSonia Cain RN RN aj1 Eric Nelson MD MD kdr Justin Dc RN RN bp Corrections: (The following items were deleted from the chart) 18:12 15:42 01/21/2019 15:42 Transfer ordered to [facility]. Diagnosis is bp Hematochizia, GI Bleed, vomiting. Reason for transfer: Higher level of care. Accepting physician is [facility]. Condition is Fair. Problem is new. Symptoms have improved. kdr
[2019-01-21 21:02] VITALS: O2SAT 100
[2019-01-21 21:13] VITALS: BP 138/88; TEMP 99
== END 2019-01-21 18:12 | disposition short-term general hospital (02) ==
LOC: ER 11:33
DX: K92.2 Gastrointestinal hemorrhage, unspecified (principal); K92.1 Melena; Z85.05 Personal history of malignant neoplasm of liver
CPT/HCPCS: 36415; 74177; 80048; 80076; 83690; 85025; 86850; 86900; 86901; 96374; 96375; 99285; J2270; Q9967

== ENCOUNTER 2019-02-04 19:39 | Emergency (ER) | payer SELFPAY ==
--- OUTSIDE RECORDS SUMMARY | 2019-02-04 19:43 | XMS REPORT | Clinical Summary ---
:1960 Author Organization [facility] Address [address] [place] [address] Care Team Providers Name Role Phone Garett [...] 8 (eight) hours as needed for Nausea. apixaban (ELIQUIS) 5 Take 1 tablet (5 60 tablet 1 01/04/20 Active mg Tab tablet mg total) by mouth 2 (two) times daily. mirtazapine (REMERON) Take 1 tablet (15 30 tablet 1 01/31/2003/01/ Active 15 MG tablet mg total) by 2018 mouth nightly for 30 days. cilostazol (PLETAL) 50 Take 1 tablet (50 60 tablet 1 01/31/2001/29/ Active MG tablet mg total) by 2019 mouth 2 (two) times daily. HYDROcodone-acetaminop Take 1 tablet by 28 tablet 0 01/31/20 Active hen (NORCO 10-325) mouth every 4 10-325 mg per tablet (four) hours as needed for Pain. Max Daily Amount: 6 tablets atorvastatin (LIPITOR) Take 1 tablet (40 30 tablet 11 10/01/19 40 MG tablet mg total) by 2018 mouth nightly. clopidogrel (PLAVIX) Take 1 tablet (75 30 tablet 11 10/02/1910/01/ 75 mg tablet mg total) by 2018 mouth daily. mINOCYCLine Take 1 capsule 14 capsule 0 03/06/20 (MINOCIN,DYNACIN) 100 (100 mg total) by 2017 MG capsule mouth every 12 (twelve) hours for 7 days. cilostazol (PLETAL) Take 100 mg by 0 100 MG tablet mouth 2 (two) 2019 times daily with breakfast and dinner. lisinopril 20 MG Tab Take 1 tablet by 0 01/03/ Discontinued 20 mg, mouth daily. 2019 hydroCHLOROthiazide 25 MG Tab 25 mg docusate sodium Take 1 capsule 20 capsule 0 12/12/19 (COLACE) 100 MG (100 mg total) by 2018 capsule mouth 2 (two) times daily for 10 days. enoxaparin (LOVENOX) Inject 0.5 mLs 60 Syringe 12/12/1901/03/ Discontinued 60 mg/0.6 mL Syrg (50 mg [...] 2 (two) times daily for 7 days. HYDROcodone-acetaminop Take 1 tablet by 30 tablet 0 01/04/2001/30/ Discontinued hen (NORCO 10-325) mouth every 6 2018 10-325 mg per tablet (six) hours as needed for Pain. Max Daily Amount: 4 tablets HYDROcodone-acetaminop Take 1 tablet by 28 tablet 0 01/31/2001/30/ Discontinued hen (NORCO 10-325) mouth every 6 2018 10-325 mg per tablet (six) hours as needed for Pain. Max Daily Amount: 4 tablets Active Problems Problem Noted Date Acute blood loss anemia 01/23/2019 Melena 01/22/2019 Palliative care encounter 01/22/2019 Thrombocytosis 12/27/2018 Ischemic pain of foot at [...] Encounters Date Type Specialty Care Team Description 01/23/2019 Anesthesia Event Gastroenterology Rhys Miller CRNA 01/23/2019 Surgery Gastroenterology Cata Ernandez UPPER ENDOSCOPY MD Elsa 01/22/2019 Travel 01/21/2019 [facility] Internal Ran Foster Acute blood loss anemia; - Encounter Medicine MD Latrell Portal vein thrombosis; 01/30/2019 Jeanette Benitez Arterial occlusion, lower extremity (HCC); Shalini Hepatocellular carcinoma (HCC); Cirrhosis of liver without ascites, unspecified hepatic cirrhosis type (HCC); Melena; Right upper quadrant abdominal pain; PUD (peptic ulcer disease); Ischemic pain of foot at rest (HCC); Gangrene of toe (HCC); Claudication (HCC); Antiplatelet or antithrombotic long-term use; 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); Severe protein-calorie malnutrition (HCC) 01/21/2019 Telephone Gastroenterology Cata Ernandez GI Bleeding MD Elsa 12/31/2018 Surgery Josefina PERIPHERAL ANGIOS / Isael AORTOGRAM MD Horacio 12/28/2018 Surgery Natalio Mcneil VENOGRAM MD 12/27/2018 Travel 12/26/2018 [facility] Cardiology Ran Foster Arterial occlusion, lower extremity (HCC); - Encounter MD Latrell Claudication (HCC); 01/03/2019 Otoniel Garcia Ischemic pain of foot at rest (HCC); 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); PVD (peripheral vascular disease) (HCC); Severe protein-calorie malnutrition (HCC); Thrombocytosis (HCC); Liver mass 12/10/2018 Abstract Hepatology Annika Sharma MA 12/04/2018 [facility] Cardiology Josafat Jama Severe protein-calorie malnutrition (HCC) (Primary Dx); - Encounter MD Jose Elias 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); 12/11/2018 Ran Foster Liver mass; MD Latrell Cirrhosis of liver without ascites, unspecified hepatic cirrhosis type (HCC); Hepatocellular carcinoma (HCC); PVD (peripheral vascular disease) (HCC); Essential hypertension; Hyperlipidemia, unspecified hyperlipidemia type 12/04/2018 Travel 12/04/2018 Orders Only Cardiology Josafat Jama MD 03/04/2018 Surgery Josefina PERIPHERAL ANGIOS / Isael AORTOGRAM MD Horacio 03/02/2018 [facility] Cardiology Carli Rodrigues Arterial occlusion, lower extremity (HCC) (Primary Dx); - Encounter MD Addi Acute leg pain, right; 03/07/2018 Philippe Evans Peripheral vascular disease (HCC); MD Marifer Skin ulcer of right foot, limited to breakdown of skin (HCC) Tony Valdes MD after 02/03/2018 Family History Medical History Relation Name Comments [...] Vital Sign Reading Time Taken Blood Pressure 123/67 01/30/2019 5:24 PM CDT Pulse 93 01/30/2019 5:24 PM CDT Temperature 36.6 C (97.9 F) 01/30/2019 5:24 PM CDT Respiratory Rate 18 01/30/2019 5:24 PM CDT Oxygen Saturation 100% 01/30/2019 5:24 PM CDT Inhaled Oxygen Concentration - - Weight 46.3 kg (102 lb) 01/29/2019 4:32 AM CDT Height 170.2 cm (5' 7") 01/29/2019 4:32 AM CDT Body Mass Index 15.98 01/29/2019 4:32 AM CDT Plan of Treatment Not on file Implants Implanted Type Area Signs Cleaner Device Identifier Shelf Model / Expiration Serial / Lot Date Gr Eptfe-Heparin Rng [id number] - [id number] Graft/P Right: WL GORE & 05/12/2021 [id number] / Implanted: Qty: 1 on 09/25/2017 by Javi Urban MD [facility] Leg ASSC:MED PRDT [id number] / Synergy Stents- Left: [place] [id number] 12/24/2019 [id number] / Implanted: Qty: 1 on 03/04/2018 by Isael Rocha MD [employer] / y [id number] Stents- [employer] [id number] 09/19/2019 [id number] / Implanted: Qty: 1 on 03/04/2018 by Isael Rocha MD Periphe / ral [id number] Maquet Hemashield Gold Knitted Microvel Double Velour Vascular Graft 7mm X 30cm Right: [employer] 02/22/2022 [id number] / Implanted: Qty: 1 on 09/25/2017 by Javi Urban MD Leg [id number] / My5f Nx CORDIS 12/24/2019 [id number] / Implanted: Qty: 1 on 12/31/2018 by Isael Rocha MD [facility] / [id number] Procedures Procedure Name Priority Date/Time Associated Diagnosis Comments RHYTHM STRIP - SCAN 02/01/2019 1:00 PM CDT CBC W/PLT COUNT & AUTO Routine 01/30/2019 3:23 Results for DIFFERENTIAL AM CDT this procedure are in the results section. PT/APTT Routine 01/30/2019 3:23 Results for AM CDT this procedure are in the results section. HEPATIC FUNCTION PANEL Routine 01/30/2019 3:23 Results for AM CDT this procedure are in the results section. BASIC METABOLIC PANEL Routine 01/30/2019 3:23 Results for (7) AM CDT this procedure are in the results section. CBC W/PLT COUNT & AUTO Routine 01/30/2019 3:23 Results for DIFFERENTIAL AM CDT this procedure are in the results section. CBC W/PLT COUNT & AUTO Routine 01/29/2019 5:13 Results for DIFFERENTIAL AM CDT this procedure are in the results section. PT/APTT Routine 01/29/2019 5:13 Results for AM CDT this procedure are in the results section. HEPATIC FUNCTION PANEL Routine 01/29/2019 5:13 Results for AM CDT this procedure are in the results section. BASIC METABOLIC PANEL Routine 01/29/2019 5:13 Results for (7) AM CDT this procedure are in the results section. CBC W/PLT COUNT & AUTO Routine 01/29/2019 5:13 Results for DIFFERENTIAL AM CDT this procedure are in the results section. PERIPHERAL VASCULAR 01/28/2019 9:24 REPORT - SCAN PM CDT CBC W/PLT COUNT & AUTO Routine 01/28/2019 5:11 Results for DIFFERENTIAL AM CDT this procedure are in the results section. PT/APTT Routine 01/28/2019 5:11 Results for AM CDT this procedure are in the results section. HEPATIC FUNCTION PANEL Routine 01/28/2019 5:11 Results for AM CDT this procedure are in the results section. BASIC METABOLIC PANEL Routine 01/28/2019 5:11 Results for (7) AM CDT this procedure are in the results section. CBC W/PLT COUNT & AUTO Routine 01/28/2019 5:11 Results for DIFFERENTIAL AM CDT this procedure are in the results section. VEIN MAPPING LEGS Routine 01/27/2019 2:07 Results for BILATERAL PM CDT this procedure are in the results section. XR FOOT RIGHT 3 VIEW Routine 01/27/2019 7:58 Results for AM CDT this procedure are in the results section. CBC W/PLT COUNT & AUTO Routine 01/27/2019 3:26 Results for DIFFERENTIAL AM CDT this procedure are in the results section. PT/APTT Routine 01/27/2019 3:26 Results for AM CDT this procedure are in the results section. HEPATIC FUNCTION PANEL Routine 01/27/2019 3:26 Results for AM CDT this procedure are in the results section. BASIC METABOLIC PANEL Routine 01/27/2019 3:26 Results for (7) AM CDT this procedure are in the results section. CBC W/PLT COUNT & AUTO Routine 01/27/2019 3:26 Results for DIFFERENTIAL AM CDT this procedure are in the results section. CBC W/PLT COUNT & AUTO Routine 01/26/2019 3:11 Results for DIFFERENTIAL AM CDT this procedure are in the results section. PT/APTT Routine 01/26/2019 3:11 Results for AM CDT this procedure are in the results section. HEPATIC FUNCTION PANEL Routine 01/26/2019 3:11 Results for AM CDT this procedure are in the results section. BASIC METABOLIC PANEL Routine 01/26/2019 3:11 Results for (7) AM CDT this procedure are in the results section. CBC W/PLT COUNT & AUTO Routine 01/26/2019 3:11 Results for DIFFERENTIAL AM CDT this procedure are in the results section. US ABDOMEN COMPLETE MATY 01/25/2019 12:57 Results for PM CDT this procedure are in the results section. ARTERIAL DOPPLER LEG, Routine 01/25/2019 11:18 Results for RIGHT AM CDT this procedure are in the results section. PT/APTT Routine 01/25/2019 4:47 Results for AM CDT this procedure are in the results section. HEPATIC FUNCTION PANEL Routine 01/25/2019 4:47 Results for AM CDT this procedure are in the results section. BASIC METABOLIC PANEL Routine 01/25/2019 4:47 Results for (7) AM CDT this procedure are in the results section. CBC W/PLT COUNT & AUTO Routine 01/25/2019 4:46 Results for DIFFERENTIAL AM CDT this procedure are in the results section. CBC W/PLT COUNT & AUTO Routine 01/25/2019 4:46 Results for DIFFERENTIAL AM CDT this procedure are in the results section. TRANSFUSION SERVICE 01/24/2019 6:01 REPORT - SCAN PM CDT REPORT OF PROCEDURE - 01/24/2019 10:58 ENDOSCOPY URL AM CDT CBC W/PLT COUNT & AUTO Routine 01/24/2019 4:58 Results for DIFFERENTIAL AM CDT this procedure are in the results section. PT/APTT Routine 01/24/2019 4:58 Results for AM CDT this procedure are in the results section. HEPATIC FUNCTION PANEL Routine 01/24/2019 4:58 Results for AM CDT this procedure are in the results section. BASIC METABOLIC PANEL Routine 01/24/2019 4:58 Results for (7) AM CDT this procedure are in the results section. CBC W/PLT COUNT & AUTO Routine 01/24/2019 4:58 Results for DIFFERENTIAL AM CDT this procedure are in the results section. PREPARE LEUKO-REDUCED Routine 01/23/2019 11:54 Results for RBC PM CDT this procedure are in the results section. TRANSFUSION SERVICE 01/23/2019 6:02 REPORT - SCAN PM CDT UPPER ENDOSCOPY 01/23/2019 1:00 Gastrointestinal PM CDT hemorrhage, unspecified gastrointestinal hemorrhage type CBC W/PLT COUNT & AUTO Routine 01/23/2019 4:27 Results for DIFFERENTIAL AM CDT this procedure are in the results section. PT/APTT Routine 01/23/2019 4:27 Results for AM CDT this procedure are in the results section. HEPATIC FUNCTION PANEL Routine 01/23/2019 4:27 Results for AM CDT this procedure are in the results section. BASIC METABOLIC PANEL Routine 01/23/2019 4:27 Results for (7) AM CDT this procedure are in the results section. CBC W/PLT COUNT & AUTO Routine 01/23/2019 4:27 Results for DIFFERENTIAL AM CDT this procedure are in the results section. HEMOGLOBIN AND Routine 01/22/2019 5:18 Results for HEMATOCRIT PM CDT this procedure are in the results section. TRANSFUSE LEUKO-REDUCED Routine 01/22/2019 3:51 RED BLOOD CELLS PM CDT TRANSFUSE LEUKO-REDUCED Routine 01/22/2019 12:28 RED BLOOD CELLS PM CDT TYPE AND SCREEN, STAT 01/22/2019 7:24 Results for AUTOMATED AM CDT this procedure are in the results section. CBC W/PLT COUNT & AUTO Routine 01/21/2019 9:55 Results for DIFFERENTIAL PM CDT this procedure are in the results section. PROTHROMBIN TIME/INR Routine 01/21/2019 9:55 Results for PM CDT this procedure are in the results section. COMPREHENSIVE METABOLIC Routine 01/21/2019 9:55 Results for PANEL PM CDT this procedure are in the results section. CBC W/PLT COUNT & AUTO Routine 01/21/2019 9:55 Results for DIFFERENTIAL PM CDT this procedure are in the results section. RHYTHM STRIP - SCAN 01/07/2019 12:10 PM CDT CARDIAC CATH REPORT - 01/05/2019 7:52 SCAN AM CDT RHYTHM STRIP - SCAN 01/05/2019 7:52 AM CDT CARDIAC CATH REPORT - 01/05/2019 7:52 SCAN AM CDT CBC W/PLT COUNT & AUTO Routine 01/03/2019 4:16 Results for DIFFERENTIAL AM CDT this procedure are in the results section. HEPATIC FUNCTION PANEL Routine 01/03/2019 4:16 Results for AM CDT this procedure are in the results section. BASIC METABOLIC PANEL Routine 01/03/2019 4:16 Results for (7) AM CDT this procedure are in the results section. CBC W/PLT COUNT & AUTO Routine 01/03/2019 4:16 Results for DIFFERENTIAL AM CDT this procedure are in the results section. FIBRINOGEN Routine 01/03/2019 4:16 Results for AM CDT this procedure are in the results section. CBC W/PLT COUNT & AUTO Routine 01/02/2019 4:25 Results for DIFFERENTIAL AM CDT this procedure are in the results section. HEPATIC FUNCTION PANEL Routine 01/02/2019 4:25 Results for AM CDT this procedure are in the results section. BASIC METABOLIC PANEL Routine 01/02/2019 4:25 Results for (7) AM CDT this procedure are in the results section. CBC W/PLT COUNT & AUTO Routine 01/02/2019 4:25 Results for DIFFERENTIAL AM CDT this procedure are in the results section. CBC W/PLT COUNT & AUTO Routine 01/01/2019 4:15 Results for DIFFERENTIAL AM CDT this procedure are in the results section. HEPATIC FUNCTION PANEL Routine 01/01/2019 4:15 Results for AM CDT this procedure are in the results section. BASIC METABOLIC PANEL Routine 01/01/2019 4:15 Results for (7) AM CDT this procedure are in the results section. CBC W/PLT COUNT & AUTO Routine 01/01/2019 4:15 Results for DIFFERENTIAL AM CDT this procedure are in the results section. PERIPHERAL ANGIOS / 12/31/2018 4:45 Ischemia of right AORTOGRAM PM CDT lower extremity CBC W/PLT COUNT & AUTO Routine 12/31/2018 4:43 Results for DIFFERENTIAL AM CDT this procedure are in the results section. HEPATIC FUNCTION PANEL Routine 12/31/2018 4:43 Results for AM CDT this procedure are in the results section. BASIC METABOLIC PANEL Routine 12/31/2018 4:43 Results for (7) AM CDT this procedure are in the results section. CBC W/PLT COUNT & AUTO Routine 12/31/2018 4:43 Results for DIFFERENTIAL AM CDT this procedure are in the results section. PERIPHERAL VASCULAR 12/30/2018 9:22 REPORT - SCAN PM CDT ARTERIAL (YOSVANY'S W/ Routine 12/30/2018 10:18 Results for DOPPLER) ONLY AM CDT this procedure are in the results section. CBC W/PLT COUNT & AUTO Routine 12/30/2018 4:56 Results for DIFFERENTIAL AM CDT this procedure are in the results section. HEPATIC FUNCTION PANEL Routine 12/30/2018 4:56 Results for AM CDT this procedure are in the results section. BASIC METABOLIC PANEL Routine 12/30/2018 4:56 Results for (7) AM CDT this procedure are in the results section. CBC W/PLT COUNT & AUTO Routine 12/30/2018 4:56 Results for DIFFERENTIAL AM CDT this procedure are in the results section. JAK2 MUTATION (V617F) Routine 12/29/2018 5:00 Results for QUANTITATIVE PM CDT this procedure are in the results section. FERRITIN Routine 12/29/2018 5:00 Results for PM CDT this procedure are in the results section. IRON, TIBC, % SAT. Routine 12/29/2018 5:00 Results for (WITHOUT FERRITIN) PM CDT this procedure are in the results section. PERIPHERAL BLOOD SMEAR Routine 12/29/2018 5:00 Results for - HOLD ONLY PM CDT this procedure are in the results section. CT/CTA AAA AND RUNOFF Routine 12/29/2018 1:58 Results for PM CDT this procedure are in the results section. CBC W/PLT COUNT & AUTO Routine 12/29/2018 4:41 Results for DIFFERENTIAL AM CDT this procedure are in the results section. HEPATIC FUNCTION PANEL Routine 12/29/2018 4:41 Results for AM CDT this procedure are in the results section. BASIC METABOLIC PANEL Routine 12/29/2018 4:41 Results for (7) AM CDT this procedure are in the results section. CBC W/PLT COUNT & AUTO Routine 12/29/2018 4:41 Results for DIFFERENTIAL AM CDT this procedure are in the results section. VENOGRAM 12/28/2018 5:46 Limb ischemia PM CDT APTT Routine 12/28/2018 1:29 Results for PM CDT this procedure are in the results section. APTT Routine 12/28/2018 6:30 Results for AM CDT this procedure are in the results section. CBC W/PLT COUNT & AUTO Routine 12/28/2018 4:58 Results for DIFFERENTIAL AM CDT this procedure are in the results section. HEPATIC FUNCTION PANEL Routine 12/28/2018 4:58 Results for AM CDT this procedure are in the results section. BASIC METABOLIC PANEL Routine 12/28/2018 4:58 Results for (7) AM CDT this procedure are in the results section. CBC W/PLT COUNT & AUTO Routine 12/28/2018 4:58 Results for DIFFERENTIAL AM CDT this procedure are in the results section. APTT Routine 12/28/2018 12:38 Results for AM CDT this procedure are in the results section. APTT Routine 12/27/2018 5:39 Results for PM CDT this procedure are in the results section. APTT Routine 12/27/2018 10:39 Results for AM CDT this procedure are in the results section. CBC W/PLT COUNT & AUTO Routine 12/27/2018 4:31 Results for DIFFERENTIAL AM CDT this procedure are in the results section. APTT Routine 12/27/2018 4:31 Results for AM CDT this procedure are in the results section. PERIPHERAL BLOOD SMEAR Routine 12/27/2018 4:31 Results for - HOLD ONLY AM CDT this procedure are in the results section. HEPATIC FUNCTION PANEL Routine 12/27/2018 4:31 Results for AM CDT this procedure are in the results section. BASIC METABOLIC PANEL Routine 12/27/2018 4:31 Results for (7) AM CDT this procedure are in the results section. CBC W/PLT COUNT & AUTO Routine 12/27/2018 4:31 Results for DIFFERENTIAL AM CDT this procedure are in the results section. PT/APTT Routine 12/26/2018 8:37 Results for PM CDT this procedure are in the results section. REPORT OF PROCEDURE - 12/14/2018 3:05 ENDOSCOPY SCAN PM CDT RHYTHM STRIP - SCAN 12/14/2018 3:05 PM CDT CBC W/PLT COUNT & AUTO Routine 12/11/2018 4:39 Results for DIFFERENTIAL AM CDT this procedure are in the results section. CBC W/PLT COUNT & AUTO Routine 12/11/2018 4:39 Results for DIFFERENTIAL AM CDT this procedure are in the results section. BASIC METABOLIC PANEL Routine 12/11/2018 4:39 Results for (7) AM CDT this procedure are in the results section. SPUTUM CULTURE + GRAM Routine 12/11/2018 12:30 Results for STAIN AM CDT this procedure are in the results section. URINALYSIS W/ REFLEX Routine 12/10/2018 8:27 Results for URINE CULTURE PM CDT this procedure are in the results section. URINE CULTURE Routine 12/10/2018 8:27 Results for PM CDT this procedure are in the results section. RESPIRATORY PANEL [facility]HS Routine 12/10/2018 3:54 Results for PM CDT this procedure are in the results section. BLOOD CULTURE Routine 12/10/2018 3:54 Results for PM CDT this procedure are in the results section. BLOOD CULTURE Routine 12/10/2018 3:43 Results for PM CDT this procedure are in the results section. XR CHEST 1 VIEW Routine 12/10/2018 12:45 Results for PORTABLE/BEDSIDE PM CDT this procedure are in the results section. CBC W/PLT COUNT & AUTO Routine 12/10/2018 4:49 Results for DIFFERENTIAL AM CDT this procedure are in the results section. CBC W/PLT COUNT & AUTO Routine 12/10/2018 4:49 Results for DIFFERENTIAL AM CDT this procedure are in the results section. BASIC METABOLIC PANEL Routine 12/10/2018 4:49 Results for (7) AM CDT this procedure are in the results section. CBC W/PLT COUNT & AUTO Routine 12/09/2018 5:17 Results for DIFFERENTIAL AM CDT this procedure are in the results section. CBC W/PLT COUNT & AUTO Routine 12/09/2018 5:17 Results for DIFFERENTIAL AM CDT this procedure are in the results section. BASIC METABOLIC PANEL Routine 12/09/2018 5:17 Results for (7) AM CDT this procedure are in the results section. CBC W/PLT COUNT & AUTO Routine 12/08/2018 5:23 Results for DIFFERENTIAL AM CDT this procedure are in the results section. PT/APTT Routine 12/08/2018 5:23 Results for AM CDT this procedure are in the results section. HEPATIC FUNCTION PANEL Routine 12/08/2018 5:23 Results for AM CDT this procedure are in the results section. CBC W/PLT COUNT & AUTO Routine 12/08/2018 5:23 Results for DIFFERENTIAL AM CDT this procedure are in the results section. BASIC METABOLIC PANEL Routine 12/08/2018 5:23 Results for (7) AM CDT this procedure are in the results section. CT CHEST WITH IV Routine 12/07/2018 9:47 Results for CONTRAST PM CDT this procedure are in the results section. CBC W/PLT COUNT & AUTO Routine 12/07/2018 4:54 Results for DIFFERENTIAL AM CDT this procedure are in the results section. PT/APTT Routine 12/07/2018 4:54 Results for AM CDT this procedure are in the results section. HEPATIC FUNCTION PANEL Routine 12/07/2018 4:54 Results for AM CDT this procedure are in the results section. CBC W/PLT COUNT & AUTO Routine 12/07/2018 4:54 Results for DIFFERENTIAL AM CDT this procedure are in the results section. BASIC METABOLIC PANEL Routine 12/07/2018 4:54 Results for (7) AM CDT this procedure are in the results section. MR ABDOMEN WITH/WITHOUT Routine 12/06/2018 8:48 Results for IV CONTRAST AM CDT this procedure are in the results section. CARBOHYDRATE ANTIGEN Routine 12/06/2018 8:22 Results for 19-9 (CA 19-9) AM CDT this procedure are in the results section. CBC W/PLT COUNT & AUTO Routine 12/06/2018 5:42 Results for DIFFERENTIAL AM CDT this procedure are in the results section. CARCINOEMBRYONIC Routine 12/06/2018 5:42 Results for ANTIGEN (CEA) AM CDT this procedure are in the results section. PT/APTT Routine 12/06/2018 5:42 Results for AM CDT this procedure are in the results section. HEPATIC FUNCTION PANEL Routine 12/06/2018 5:42 Results for AM CDT this procedure are in the results section. CBC W/PLT COUNT & AUTO Routine 12/06/2018 5:42 Results for DIFFERENTIAL AM CDT this procedure are in the results section. BASIC METABOLIC PANEL Routine 12/06/2018 5:42 Results for (7) AM CDT this procedure are in the results section. HEPATITIS C PCR, Routine 12/05/2018 11:27 Results for QUANTITATIVE AM CDT this procedure are in the results section. CBC W/PLT COUNT & AUTO Routine 12/05/2018 5:19 Results for DIFFERENTIAL AM CDT this procedure are in the results section. HEPATITIS PANEL, ACUTE Routine 12/05/2018 5:19 Results for AM CDT this procedure are in the results section. MAGNESIUM Routine 12/05/2018 5:19 Results for AM CDT this procedure are in the results section. PT/APTT Routine 12/05/2018 5:19 Results for AM CDT this procedure are in the results section. COMPREHENSIVE METABOLIC Routine 12/05/2018 5:19 Results for PANEL AM CDT this procedure are in the results section. CBC W/PLT COUNT & AUTO Routine 12/05/2018 5:19 Results for DIFFERENTIAL AM CDT this procedure are in the results section. ALPHA FETOPROTEIN Routine 12/04/2018 9:32 Results for (AFP), TUMOR MARKER PM CDT this procedure are in the results section. RHYTHM STRIP - SCAN 09/08/2018 12:36 PM CDT RHYTHM STRIP - SCAN 08/24/2018 11:30 AM CDT CARDIAC CATH REPORT - 03/10/2018 12:01 SCAN PM CDT RHYTHM STRIP - SCAN 03/10/2018 12:01 PM CDT CBC W/PLT COUNT & AUTO Routine 03/07/2018 4:06 Results for DIFFERENTIAL AM CDT this procedure are in the results section. CBC W/PLT COUNT & AUTO Routine 03/07/2018 4:06 Results for DIFFERENTIAL AM CDT this procedure are in the results section. BASIC METABOLIC PANEL Routine 03/07/2018 4:06 Results for (7) AM CDT this procedure are in the results section. BLOOD CULTURE Routine 03/06/2018 11:31 Results for AM CDT this procedure are in the results section. BLOOD CULTURE Routine 03/06/2018 11:19 Results for AM CDT this procedure are in the results section. ARTERIAL (YOSVANY'S W/ STAT 03/06/2018 10:32 Results for DOPPLER) ONLY AM CDT this procedure are in the results section. APTT Routine 03/06/2018 6:42 Results for AM CDT this procedure are in the results section. CBC W/PLT COUNT & AUTO Routine 03/06/2018 4:26 Results for DIFFERENTIAL AM CDT this procedure are in the results section. APTT Routine 03/06/2018 4:26 Results for AM CDT this procedure are in the results section. CBC W/PLT COUNT & AUTO Routine 03/06/2018 4:26 Results for DIFFERENTIAL AM CDT this procedure are in the results section. BASIC METABOLIC PANEL Routine 03/06/2018 4:26 Results for (7) AM CDT this procedure are in the results section. APTT Routine 03/06/2018 4:26 Results for AM CDT this procedure are in the results section. APTT Routine 03/05/2018 9:04 Results for PM CDT this procedure are in the results section. APTT Routine 03/05/2018 3:17 Results for PM CDT this procedure are in the results section. APTT Routine 03/05/2018 9:24 Results for AM CDT this procedure are in the results section. CBC W/PLT COUNT & AUTO Routine 03/05/2018 5:17 Results for DIFFERENTIAL AM CDT this procedure are in the results section. CBC W/PLT COUNT & AUTO Routine 03/05/2018 5:17 Results for DIFFERENTIAL AM CDT this procedure are in the results section. BASIC METABOLIC PANEL Routine 03/05/2018 5:17 Results for (7) AM CDT this procedure are in the results section. TRANSFUSION SERVICE 03/04/2018 6:00 REPORT - SCAN PM CDT POCT-ACT Routine 03/04/2018 3:45 Results for PM CDT this procedure are in the results section. 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 Narrative Performed At PT/aPTT (01/30/2019 3:23 AM CDT)Only the most recent of13 resultswithin the time period is included. Protime 15.1 (H) 11.9 - 14.2 seconds [facility] INR 1.2 <=5.9 [facility] PTT 39.2 (H) 22.5 - 36.0 seconds [facility] Specimen Blood Narrative Performed At Effective 10/21/2018: PT Reference Range [facility] Change New: 11.9-14.2Previous: 11.7-14.7 RECOMMENDED COUMADIN/WARFARIN INR THERAPY RANGES STANDARD DOSE: 2.0-3.0Includes: PROPHYLAXIS for venous thrombosis, systemic embolization; TREATMENT for venous thrombosis and/or pulmonary embolus. HIGH RISK: Target INR is 2.5-3.5 for patients wiht mechanical heart valves. Performing Organization Address City/State/Zipcode Phone Number [facility] [address] [place] [address] [phone] CENTER CBC with platelet count + automated diff (01/30/2019 3:23 AM CDT)Only the most recent of30 resultswithin the time period is included. WBC 11.2 (H) 3.5 - 10.5 K/L [facility] RBC 3.55 (L) 4.63 - 6.08 M/L [facility] Hemoglobin 9.9 (L) 13.7 - 17.5 GM/DL [facility] Hematocrit 31.1 (L) 40.1 - 51.0 % [facility] MCV 87.6 79.0 - 92.2 fL [facility] MCH 27.9 25.7 - 32.2 pg [facility] MCHC 31.8 (L) 32.3 - 36.5 GM/DL [facility] RDW 17.3 (H) 11.6 - 14.4 % [facility] Platelets 800 (H) 150 - 450 K/CU MM [facility] MPV 9.4 9.4 - 12.4 fL [facility] nRBC 0 0 - 0 /100 WBC [facility] % Neutros 68 % [facility] % Lymphs 22 % [facility] % Monos 8 % [facility] % Eos 2 % [facility] % Baso 0 % [facility] # Neutros 7.57 (H) 1.78 - 5.38 K/L [facility] # Lymphs 2.46 1.32 - 3.57 K/L [facility] # Monos 0.86 (H) 0.30 - 0.82 K/L [facility] # Eos 0.20 0.04 - 0.54 K/L [facility] # Baso 0.05 0.01 - 0.08 K/L [facility] Immature Granulocytes-Relative 1 0 - 1 % [facility] Specimen Blood Performing Organization Address City/State/Zipcode Phone Number [facility] [address] [place] [address] [phone] [place] Hepatic function panel (01/30/2019 3:23 AM CDT)Only the most recent of19 resultswithin the time period is included. Protein, Total 6.1Comment: Specimen 6.0 - 8.3 gm/dL [facility] Albumin 3.0 (L)Comment: Specimen 3.5 - 5.0 g/dL [facility] Total Bilirubin 0.5Comment: Specimen 0.2 - 1.2 mg/dL [facility] Bilirubin, Direct 0.3Comment: Specimen 0.1 - 0.5 mg/dL [facility] Alkaline Phosphatase 172 (H) 40 - 150 U/L [facility] AST 240 (H)Comment: Specimen 5 - 34 U/L [facility] ALT 119 (H)Comment: Specimen 6 - 55 U/L [facility] Specimen Blood Performing Organization Address City/State/Zipcode Phone Number [facility] [address] [place] [address] [phone] [place] Basic Metabolic Panel (01/30/2019 3:23 AM CDT)Only the most recent of28 resultswithin the time period is included. Sodium 135 (L) 136 - 145 meq/L [facility] Potassium 3.7Comment: Specimen slightly 3.5 - 5.1 meq/L [facility] Chloride 106 98 - 107 meq/L [facility] CO2 19 (L) 22 - 29 meq/L [facility] BUN 7 7 - 21 mg/dL [facility] Creatinine 0.74Comment: Specimen 0.57 - 1.25 mg/dL [facility] Glucose 102 70 - 105 mg/dL [facility] Calcium 8.3 (L) 8.4 - 10.2 mg/dL [facility] EGFR 132Comment: ESTIMATED GFR IS mL/min/1.73 sq m [facility] NOT ACCURATE CREATININE [facility] CLEARANCE IN PREDICTING GLOMERULAR FILTRATION RATE. ESTIMATED GFR IS NOT APPLICABLE FOR DIALYSIS PATIENTS. Specimen Blood Performing Organization Address City/State/Zipcode Phone Number [facility] [address] [place] [address] CENTER PERIPHERAL VASCULAR REPORT - SCAN (01/28/2019 9:24 PM CDT)Only the most recent of2 resultswithin the time period is included. Narrative Performed At Vein Mapping Legs Bilateral (01/27/2019 2:07 PM CDT) [facility] ECHO HEARTCollabFinder CPACS Specimen Impressions Performed At Right Impression [facility] ECHO HEARTAdvanced-TecESSON CPACS 1. There is no deep venous venous obstruction in the common femoral, profunda femoral, femoral, popliteal, posterior tibial or peroneal veins. 2. There is no superficial venous obstruction in the great saphenous vein. The great saphenous vein below the knee is not visualized. Left Impression 1. There is no deep venous obstruction in the common femoral, profunda femoral, femoral, popliteal, posterior tibial or peroneal veins. 2. There is no superficial venous obstruction in the great saphenous vein. Conclusions Summary Venous duplex imaging and compression of the bilateral lower extremities was performed. The veins were adequately visualized. The bilateral venous systems were patent and compressible with no evidence of thrombus. Superficial venous measurements are documented below. Signature Velocities are measured in cm/s ; Diameters are measured in cm LE Vein Mapping Superficial - Great Saphenous Vein Right Left + + + + + + + + !Location ! !Diameter !Depth ! !Diameter !Depth ! + + + + + + + + !Sapheno Femoral Junction ! !0.39 ! ! !0.35 ! ! + + + + + + + + !GSV High Thigh ! !0.35 ! ! !0.3 ! ! + + + + + + + + !GSV Mid Thigh ! !0.09 ! ! !0.15 ! ! + + + + + + + + !GSV Low Thigh ! !0.12 ! ! !0.21 ! ! + + + + + + + + !GSV Knee ! !0.21 ! ! + + +-- + + !GSV High Calf ! !0.21 ! ! + + +-- + + !GSV Mid Calf ! !0.26 ! ! + + +-- + + !GSV Low Calf ! !0.2 ! ! + + +-- + + !GSV Ankle ! !0.14 ! ! + + +-- + + Narrative Performed At [facility] - Lower Extremities Vein Mapping [facility] CPACS Demographics Patient Name NATALIA JORGEDate of Study01/27/2019 NORAH [id number] Age58 Visit Number [id number] Gender Male Accession Number [id number] Date of Birth1960 Etta Zbigniew ChaviraChayRoom [id number] Physician Lisbeth Casarez RVS Interpreting Physician JuniorMD Procedure Type of Study: Veins: Lower Extremity Vein Mapping, VEIN MAPPING, LOWER EXTREMITY, BILATERAL. Indications for Study:Evaluation of venous outflow in the lower extremities. Patient Status:TODAY. Study Location:Vascular Lab. Technical Quality:Adequate visualization. Risk Factors History of Disease + +----+ + !Diagnosis!Date!Comments ! + +----+ + !History/Risk !!Claudication, HLD, HTN, PVD, Stroke, Right Femoral to! !Factors: !!Popliteal bypass graft, Right Femoral to Left Femoral! ! !!bypass graft ! + +----+ + Procedure Note Interface, External Ris In - 01/28/2019 9:56 AM CDT [facility] - Lower Extremities Vein Mapping Demographics Patient Name NATALIA JORGE Date of Study 01/27/2019 NORAH Age 58 Visit Number [id number] Gender Male Accession Number [id number] Date of 1960 Referring Kristin Oliver Room Number 946 Physician Tax Evaluator Reese Casarez RVS Interpreting Denise Roldan, Physician Procedure Type of Study: Veins: Lower Extremity Vein Mapping, VEIN MAPPING, LOWER EXTREMITY, BILATERAL. Indications for Study:Evaluation of venous outflow in the lower extremities. Patient Status:TODAY. Study Location:Vascular Lab. Technical Quality:Adequate visualization. Risk Factors History of Disease + +----+ + !Diagnosis !Date!Comments ! + +----+ + !History/Risk ! !Claudication, HLD, HTN, PVD, Stroke, Right Femoral to! !Factors: ! !Popliteal bypass graft, Right Femoral to Left Femoral! ! ! !bypass graft ! + +----+ + Impressions Right Impression 1. There is no deep venous venous obstruction in the common femoral, profunda femoral, femoral, popliteal, posterior tibial or peroneal veins. 2. There is no superficial venous obstruction in the great saphenous vein. The great saphenous vein below the knee is not visualized. Left Impression 1. There is no deep venous obstruction in the common femoral, profunda femoral, femoral, popliteal, posterior tibial or peroneal veins. 2. There is no superficial venous obstruction in the great saphenous vein. Conclusions Summary Venous duplex imaging and compression of the bilateral lower extremities was performed. The veins were adequately visualized. The bilateral venous systems were patent and compressible with no evidence of thrombus. Superficial venous measurements are documented below. Signature Velocities are measured in cm/s ; Diameters are measured in cm LE Vein Mapping Superficial - Great Saphenous Vein Right Left + + + + + + -----+ + !Location ! !Diameter !Depth ! !Diameter !Depth ! + + + + + + -----+ + !Sapheno Femoral Junction ! !0.39 ! ! !0.35 ! ! + + + + + + -----+ + !GSV High Thigh ! !0.35 ! ! !0.3 ! ! + + + + + + -----+ + !GSV Mid Thigh ! !0.09 ! ! !0.15 ! ! + + + + + + -----+ + !GSV Low Thigh ! !0.12 ! ! !0.21 ! ! + + + + + + -----+ + !GSV Knee ! !0.21 ! ! + + + ------+ + !GSV High Calf ! !0.21 ! ! + + + ------+ + !GSV Mid Calf ! !0.26 ! ! + + + ------+ + !GSV Low Calf ! !0.2 ! ! + + + ------+ + !GSV Ankle ! !0.14 ! ! + + + ------+ + Performing Organization Address [facility] Phone Number [facility]ARTInd[facility] MKCKESSON CPACS XR foot 3 views right (01/27/2019 7:58 AM CDT)Only the most recent of2 resultswithin the time period is included. Specimen Narrative Performed At FINAL REPORT [facility] CLINICAL HISTORY: wound TECHNIQUE: 3 views of the right foot COMPARISON: 03/13/2018 IMPRESSION: The bones of the foot are diffusely osteopenic without evidence of fracture or dislocation. There is a soft tissue ulceration of the dorsal midfoot without evidence of a radiopaque foreign body. Signed: Teodoro Sibley MD Report Verified Date/Time:01/27/2019 10:22:00 Reading Location: [facility] Radiology Reading Room Procedure Note Interface, External Ris In - 01/27/2019 10:24 AM CDT FINAL REPORT CLINICAL HISTORY: wound TECHNIQUE: 3 views of the right foot COMPARISON: 03/13/2018 IMPRESSION: The bones of the foot are diffusely osteopenic without evidence of fracture or dislocation. There is a soft tissue ulceration of the dorsal midfoot without evidence of a radiopaque foreign body. Signed: Teodoro Sibley MD Report Verified Date/Time: 01/27/2019 10:22:00 Reading Location: [facility] Radiology Reading Room Performing Organization Address [facility] Phone Number [facility] US abdomen complete (01/25/2019 12:57 PM CDT) Specimen Narrative Performed At FINAL REPORT [facility] Ultrasound of the abdomen. Clinical History: ascites. Comparison study: MRI dated December 06, 2018. Findings: The liver is heterogeneous in echotexture and measures 22.8 cm in length. A 13.4 x 10.5 x 13.7 cm mass is seen involving a large portion of the liver including the entire left lobe. There is no evidence of intra or extrahepatic biliary dilatation with the common bile duct measuring four mm. The main portal vein diameter is 0.5 cm. The gallbladder contains sludge and multiple echogenic foci along the wall, likely small polyps. The spleen measures 6.9 cm and is unremarkable. The pancreas is poorly seen. No ascites is present. The right kidney measures 11.0 cm and left kidney measures 10.6 cm. A 2 mm nonocclusive calculus is seen in the left kidney. No pleural effusions are seen. Impression: 1. Hepatomegaly with large mass consistent with neoplasm. 2. Gallbladder sludge and polyps. 3. Nonocclusive left renal calculus. 4. Limited visibility study. 5. No ascites. Signed: Sage Avendaño MD Report Verified Date/Time:01/25/2019 13:44:29 Reading Location: [address] Consult Reading Room Procedure Note Interface, External Ris In - 01/25/2019 1:46 PM CDT FINAL REPORT Ultrasound of the abdomen. Clinical History: ascites. Comparison study: MRI dated December 06, 2018. Findings: The liver is heterogeneous in echotexture and measures 22.8 cm in length. A 13.4 x 10.5 x 13.7 cm mass is seen involving a large portion of the liver including the entire left lobe. There is no evidence of intra or extrahepatic biliary dilatation with the common bile duct measuring four mm. The main portal vein diameter is 0.5 cm. The gallbladder contains sludge and multiple echogenic foci along the wall, likely small polyps. The spleen measures 6.9 cm and is unremarkable. The pancreas is poorly seen. No ascites is present. The right kidney measures 11.0 cm and left kidney measures 10.6 cm. A 2 mm nonocclusive calculus is seen in the left kidney. No pleural effusions are seen. Impression: 1. Hepatomegaly with large mass consistent with neoplasm. 2. Gallbladder sludge and polyps. 3. Nonocclusive left renal calculus. 4. Limited visibility study. 5. No ascites. Signed: Sage Avendaño MD Report Verified Date/Time: 01/25/2019 13:44:29 Reading Location: [address] Ortho Consult Reading Room Performing Organization Address City/State/Zipcode Phone Number [facility] Arterial doppler leg, right (01/25/2019 11:18 AM CDT)Only the most recent of2 resultswithin the time period is included. Ejection Fraction [facility] ECHO HEARTLAB [facility] CPACS Specimen Impressions Performed At Right Impression [facility] ECHO HEARTLAB [facility] CPACS 1. The femoral-femoral bypass graft is patent with velocities of: Right anastomosis- 203/28 cm/sec, mid graft- 41/4 cm/sec, 41/7 cm/sec and left anastomosis- 30 cm/sec. 2. The common femoral and profunda femoral arteries are patent with triphasic Doppler waveforms and calcification. 3. Post stent placement, the superficial femoral artery is occluded. 4. The popliteal artery is occluded. 5. The posterior tibial, peroneal and anterior tibial arteries are patent via collateral flow with decreased monophasic Doppler waveforms. 6. The dorsalis pedis artery is occluded. 7. The PT pressure is 70 mmHg with an YOSVANY of 0.54, within severe obstruction range. 8. The DP YOSVANY is unobtainable due to absent Doppler signal. 9. The digits have no obtainable flow by PPG waveforms. Left Impression FOR COMPARISON 1. The PT pressure is 80 mmHg with an YOSVANY of 0.52, within moderate obstruction range. 2. The DP YOSVANY is unobtainable due to absent Doppler signal. 3. The great toe pressure is 40 mmHg with an abnormal TBI of 0.31. 4. The 1st and 2nd digits have decreased flow by PPG waveforms. 5. The 3rd, 4th and 5th digits have no obtainable flow by PPG waveforms. Conclusions Summary Arterial pressures and Doppler analysis were performed on the right lower extremity. Adequate Doppler waveforms were obtained. The femoral-femoral bypass graft was patent with no obstruction. Post stent placement, the superficial femoral artery was occluded. The popliteal artery was occluded. The posterior tibial, peroneal and anterior tibial arteries were patent via collateral flow with decreased monophasic Doppler waveforms. The dorsalis pedis artery was occluded. The PT YOSVANY was within severe obstruction range. The DP YOSVANY was unobtainable due to absent Doppler signal. The digits had no obtainable flow by PPG waveforms. Signature Velocities are measured in cm/s ; Diameters are measured in cm LE Duplex Measurements Right Left + + + + + + + + + + !Location ! !PSV !EDV !Waveform! !PSV !EDV !Waveform! + + + + + + + + + + !Mid Common Femoral ! !190 !18.3! ! + + + + + + !Prox PFA ! !181 !18.3! ! + + + + + + !Prox PUBLISHING SYSTEMS ANALYST ! !13.8!9.82 ! ! + + + + + + !Mid PUBLISHING SYSTEMS ANALYST ! !16.2!10.5 ! ! + + + + + + !Dist PUBLISHING SYSTEMS ANALYST ! !17.1!11.4 ! ! + + + + + + !Prox ROSELYN ! !16.9!8.64 ! ! + + + + + + !Mid ROSELYN ! !15.7!7.86 ! ! + + + + + + !Dist ROSELYN ! !13.8!7.46 ! ! + + + + + + !Mid Peroneal ! !13!7.86 ! ! + + + + + + !Dist Peroneal ! !14.1!9.04 ! ! + + + + + + Narrative Performed At [facility] - Lower Extremity Arterial Duplex [facility]ART[facility] Demographics Patient Name Mati JORGE of Study01/25/2019 NORAH [id number] Age58 Visit Number [id number] Gender Male Accession Number [id number] Date of Birth1960 [facility] [id number] Physician SonographerMarlee Gallagher RVTInterpreting Evelia Pacheco, PhysicianMD RVT Procedure Type of Study: Extremities Arteries: Lower Extremities Arterial Duplex, ARTERIAL DOPPLER LEG, RIGHT. Indications for Study:Evaluate for bypass graft patency and Arterial patency . Patient Status:Routine. Study Location:Vascular Lab. Technical Quality:Adequate visualization. Risk Factors History of Disease + +----+ + !Diagnosis!Date!Comments ! + +----+ + !History/Risk !!Claudication, HLD, HTN, PVD, Stroke, Right Femoral to! !Factors: !!Popliteal bypass graft, Right Femoral to Left Femoral! ! !!bypass graft ! + +----+ + Procedure Note Interface, External Ris In - 01/26/2019 11:43 AM CDT [facility] - Lower Extremity Arterial Duplex Demographics Patient Name NATALIA JORGE Date of Study 01/25/2019 NORAH Age 58 Visit Number [id number] Gender Male Accession Number [id number] Date of 1960 Referring Ran Kristin Room Number 946 Physician Tax Evaluator Marlee Gallagher RVT Interpreting Denise Roldan, Evelia Castaneda, Physician RVT Procedure Type of Study: Extremities Arteries: Lower Extremities Arterial Duplex, ARTERIAL DOPPLER LEG, RIGHT. Indications for Study:Evaluate for bypass graft patency and Arterial patency . Patient Status:Routine. Study Location:Vascular Lab. Technical Quality:Adequate visualization. Risk Factors History of Disease + +----+ + !Diagnosis !Date!Comments ! + +----+ + !History/Risk ! !Claudication, HLD, HTN, PVD, Stroke, Right Femoral to! !Factors: ! !Popliteal bypass graft, Right Femoral to Left Femoral! ! ! !bypass graft ! + +----+ + Impressions Right Impression 1. The femoral-femoral bypass graft is patent with velocities of: Right anastomosis- 203/28 cm/sec, mid graft- 41/4 cm/sec, 41/7 cm/sec and left anastomosis- 30 cm/sec. 2. The common femoral and profunda femoral arteries are patent with triphasic Doppler waveforms and calcification. 3. Post stent placement, the superficial femoral artery is occluded. 4. The popliteal artery is occluded. 5. The posterior tibial, peroneal and anterior tibial arteries are patent via collateral flow with decreased monophasic Doppler waveforms. 6. The dorsalis pedis artery is occluded. 7. The PT pressure is 70 mmHg with an YOSVANY of 0.54, within severe obstruction range. 8. The DP YOSVANY is unobtainable due to absent Doppler signal. 9. The digits have no obtainable flow by PPG waveforms. Left Impression FOR COMPARISON 1. The PT pressure is 80 mmHg with an YOSVANY of 0.52, within moderate obstruction range. 2. The DP YOSVANY is unobtainable due to absent Doppler signal. 3. The great toe pressure is 40 mmHg with an abnormal TBI of 0.31. 4. The 1st and 2nd digits have decreased flow by PPG waveforms. 5. The 3rd, 4th and 5th digits have no obtainable flow by PPG waveforms. Conclusions Summary Arterial pressures and Doppler analysis were performed on the right lower extremity. Adequate Doppler waveforms were obtained. The femoral-femoral bypass graft was patent with no obstruction. Post stent placement, the superficial femoral artery was occluded. The popliteal artery was occluded. The posterior tibial, peroneal and anterior tibial arteries were patent via collateral flow with decreased monophasic Doppler waveforms. The dorsalis pedis artery was occluded. The PT YOSVANY was within severe obstruction range. The DP YOSVANY was unobtainable due to absent Doppler signal. The digits had no obtainable flow by PPG waveforms. Signature Velocities are measured in cm/s ; Diameters are measured in cm LE Duplex Measurements Right Left + + + ------+ + + + +-------- + + !Location ! !PSV !EDV !Waveform ! !PSV !EDV !Waveform ! + + + ------+ + + + +-------- + + !Mid Common Femoral ! !190 !18.3 ! ! + + + ------+ + + !Prox PFA ! !181 !18.3 ! ! + + + ------+ + + !Prox PUBLISHING SYSTEMS ANALYST ! !13.8 !9.82 ! ! + + + ------+ + + !Mid PUBLISHING SYSTEMS ANALYST ! !16.2 !10.5 ! ! + + + ------+ + + !Dist PUBLISHING SYSTEMS ANALYST ! !17.1 !11.4 ! ! + + + ------+ + + !Prox ROSELYN ! !16.9 !8.64 ! ! + + + ------+ + + !Mid ROSELYN ! !15.7 !7.86 ! ! + + + ------+ + + !Dist ROSELYN ! !13.8 !7.46 ! ! + + + ------+ + + !Mid Peroneal ! !13 !7.86 ! ! + + + ------+ + + !Dist Peroneal ! !14.1 !9.04 ! ! + + + ------+ + + Performing Organization Address City/State/[facility] Phone Number [facility] TRANSFUSION SERVICE REPORT - SCAN (01/24/2019 6:01 PM CDT)Only the most recent of3 resultswithin the time period is included. Narrative Performed At REPORT OF PROCEDURE - ENDOSCOPY URL (01/24/2019 10:58 AM CDT) Narrative Performed At Prepare Leuko-Red RBC (01/23/2019 11:54 PM CDT) CROSSMATCH COMPATIBLE SAFETRACE TX Unit ABO A Pos SAFETRACE TX UNIT NUMBER [id number] SAFETRACE TX Status TX_TIMEINCHART SAFETRACE TX Blood Bank Product RED BLOOD CELLS SAFETRACE TX PRODUCT CODE [id number] SAFETRACE TX CROSSMATCH COMPATIBLE SAFETRACE TX Unit ABO A Pos SAFETRACE TX UNIT NUMBER [id number] SAFETRACE TX Status TX_TIMEINCHART SAFETRACE TX Blood Bank Product RED BLOOD CELLS SAFETRACE TX PRODUCT CODE [id number] SAFETRACE TX Specimen Other Performing Organization Address [facility] Phone Number SAFETRACE TX Hemoglobin and hematocrit (01/22/2019 5:18 PM CDT) Hemoglobin 11.0 (L) 13.7 - 17.5 GM/DL [facility] Hematocrit 33.2 (L) 40.1 - 51.0 % [facility] Specimen Blood Performing Organization Address [facility] Phone Number [address] [address] [phone] CENTER Transfuse Leuko-Red RBC (01/22/2019 3:51 PM CDT)Only the most recent of3 resultswithin the time period is included.Type and screen, automated (2018 7:24 AM CDT)Only the most recent of2 resultswithin the time period is included. ABO/RH AUTOMATED (BEAKER) A POSITIVE [facility] Ab Scrn NEGATIVE [facility] Specimen Blood Performing Organization Address [facility] Phone Number [address] [address] Prothrombin time/INR (01/21/2019 9:55 PM CDT) Protime 15.5 (H) 11.9 - 14.2 seconds [facility] INR 1.3 <=5.9 [facility] Specimen Blood Narrative Performed At Effective 10/21/2018: PT Reference Range [facility] Change New: 11.9-14.2Previous: 11.7-14.7 RECOMMENDED COUMADIN/WARFARIN INR THERAPY RANGES STANDARD DOSE: 2.0-3.0Includes: PROPHYLAXIS for venous thrombosis, systemic embolization; TREATMENT for venous thrombosis and/or pulmonary embolus. HIGH RISK: Target INR is 2.5-3.5 for patients wiht mechanical heart valves. Performing Organization Address City/State/Zipcode Phone Number [facility] [address] [place] [address] [phone] CENTER Comprehensive metabolic panel (01/21/2019 9:55 PM CDT)Only the most recent of2 resultswithin the time period is included. Protein, Total 6.7 6.0 - 8.3 gm/dL [facility] Albumin 3.5 3.5 - 5.0 g/dL [facility] Alkaline Phosphatase 211 (H) 40 - 150 U/L [facility] Total Bilirubin 0.6 0.2 - 1.2 mg/dL [facility] Sodium 137 136 - 145 meq/L [facility] Potassium 3.8 3.5 - 5.1 meq/L [facility] Chloride 106 98 - 107 meq/L [facility] CO2 20 (L) 22 - 29 meq/L [facility] BUN 12 7 - 21 mg/dL [facility] Creatinine 0.77 0.57 - 1.25 mg/dL [facility] Glucose 95 70 - 105 mg/dL [facility] Calcium 8.5 8.4 - 10.2 mg/dL [facility] AST 378 (H) 5 - 34 U/L [facility] ALT 104 (H) 6 - 55 U/L [facility] EGFR 126Comment: ESTIMATED mL/min/1.[address] [facility] GFR IS NOT ACCURATE [facility] CREATININE CLEARANCE IN PREDICTING GLOMERULAR FILTRATION RATE. ESTIMATED GFR IS NOT APPLICABLE FOR DIALYSIS PATIENTS. Specimen Blood Performing Organization Address City/State/Zipcode Phone Number [facility] [address] [place] [address] CENTER CARDIAC CATH REPORT - SCAN (01/05/2019 7:52 AM CDT) Narrative Performed At CARDIAC CATH REPORT - SCAN (01/05/2019 7:52 AM CDT) Narrative Performed At Fibrinogen (01/03/2019 4:16 AM CDT) Fibrinogen 504 (H) 225 - 434 mg/dl [facility] Specimen Blood Performing Organization Address City/[facility] Phone Number [place] [phone] [place] [address] [place] YOSVANY's Only(Ankle/Brachial Index) (12/30/2018 10:18 AM CDT)Only the most recent of2 resultswithin the time period is included. Ejection Fraction [facility] CPACS Specimen Impressions Performed At Right Impression [facility] CPACS 1. The posterior tibial artery is patent [...] PV LAB - Lower Extremity Arterial Procedure [facility] Demographics Patient Name Mati JORGE of Study12/30/2018 NORAH [id number] Visit Number [id number] Gender Male Accession Number [id number] Date of Birth1960 ReferringRon MD Radha Room [id number] Physician SonographPaul Kamara [facility] Interpreting Physician JuniorMD Procedure Type of Study: [...] Study 12/30/2018 NORAH Age 58 Visit Number [id number] Gender Male Accession Number [id number] Date of 1960 Referring Otoniel Garcia MD Room Number [id number] Physician Tax Evaluator Josefa Kamara T Interpreting Physician TOÑO Pacheco Procedure Type of Study: Extremities Arteries: Lower [...] Phone Number [facility] JAK2 MUTATION ([id number]) QUANTITATIVE (12/29/2018 5:00 PM [...] hematologic features, includes BCR-ABL1 rearrangement (test code 54296 or 08010M) or mutational analysis of CALR (ET/PMF, 95080), JAK2 exon 12 (PV, 18321), MPL (ET/PMF, 28836) or CSF3R (chronic neutrophilic leukemia, 61736). Residual material from this sample may be used except for BCR-ABL1 testing; call lab to add. DNA was aligned to GRCh37(hg19) for analysis and transcript ID [id number] was used as reference for JAK2 sequence. For additional information, please refer to http://education.[facility]/faq/NME820 (This link is being provided for informational/educational purposes only.) This test was developed and its analytical performance characteristics have been determined by [facility]. It has not been cleared or approved by FDA. This assay has been validated pursuant to the CLIA regulations and is used for clinical purposes. Specimen Blood Narrative Performed At Performing Lab [facility] EZ [facility] [address] [address] Rafa Gr MD, PhD, MARGARITA Performing Organization Address [facility] [place] [address] [place] [address] Peripheral Blood Smear - Hold only (12/29/2018 5:00 PM CDT)Only the most recent of2 resultswithin the time period is included. Peripheral Smear Save saved [facility] Specimen Blood Performing Organization Address [facility] Phone Number [address] [address] CENTER Iron, TIBC, % sat. (without ferritin) (12/29/2018 5:00 PM CDT) Iron 27.0 (L) 40.0 - 160.0 ug/dL [facility] TIBC 294 250 - 450 ug/dL [facility] Iron % Saturation 9 (L) 20 - 55 % [facility] Specimen Blood Performing Organization Address [facility] Phone Number [address] [address] [phone] CENTER Ferritin (12/29/2018 5:00 PM CDT) Ferritin 1,372 (H) 5 - 275 ng/mL [facility] Specimen Blood Performing Organization Address [facility] Phone Number [address] [address] CENTER CTA AAA and Runoff (12/29/2018 1:58 PM CDT)Only the most recent of2 resultswithin the time period is included. Specimen Narrative Performed At Addendum Begins [facility] REPORT STATUS:A Addendum: December 29, 2018 at [...] MD Report Verified Date/Time:12/29/2018 18:44:42 Reading Location: [place] [id number] Angio Body Reading Room Addendum Ends FINAL [...] proximal 1.5 cm. In the right, the shoal[place] right SFA is occluded. The right profunda system is patent. A femoral to popliteal bypass of is identified and the graft is essentially occluded. The [place] right popliteal artery is not enhanced by [...] of a short stent identified in the shoal[place] right SFA and the most proximal margin [...] dictated regarding the non-vascular findings by the Produce Weigher Radiologist. Signed: Shawn Restrepo MD Report Verified Date/Time:12/29/2018 14:49:55 Reading Location: [place] [address] Cardiology MRI Procedure Note Interface, External Ris [...] Report Verified Date/Time: 12/29/2018 18:44:42 Reading Location: [place] [id number] Angio Body Reading Room Addendum Ends FINAL [...] proximal 1.5 cm. In the right, the [place] right SFA is occluded. The right profunda system is patent. A femoral to popliteal bypass of is identified and the graft is essentially occluded. The [place] right popliteal artery is not enhanced by [...] of a short stent identified in the [place] right SFA and the most proximal margin [...] dictated regarding the non-vascular findings by the Produce Weigher Radiologist. Signed: Shawn Restrepo MD Report Verified Date/Time: 12/29/2018 14:49:55 Reading Location: [place] [address] Cardiology MRI Performing Organization Address [facility] Phone Number GE RIS aPTT (12/28/2018 1:29 PM CDT)Only the most recent of19 resultswithin the time period is included. PTT 95.9 (H) 22.5 - 36.0 seconds [facility] Specimen Blood Performing Organization Address [facility] Phone Number [address] [address] [phone] [place] EKG-SCANNED (12/14/2018 3:05 PM CDT) Narrative Performed At Sputum Culture + Gram Stain (12/11/2018 12:30 AM CDT) Result 4+ Normal respiratory yael [facility] Gram Stain Result 2+ White blood cells seen [facility] Gram Stain Result 10-15 epithelial cells [facility] Gram Stain Result 3+ gram positive rods [facility] Gram Stain Result 3+ gram positive cocci in [facility] chains, pairs and clusters [facility] Specimen Sputum - Expectorated Performing Organization Address [facility] Phone Number [address] [address] [phone] [place] Urinalysis w/Microscopic + Reflex to Culture (12/10/2018 8:27 PM CDT) Color, UA Yellow [facility] Clarity, UA Clear [facility] Specific [place], UA 1.009 1.001 - 1.035 [facility] pH, UA 7.0 5.0 - 8.0 [facility] Protein, UA Negative Negative [facility] Glucose, UA Negative Negative [facility] Ketones, UA Negative Negative [facility] Bilirubin, UA Negative Negative [facility] Blood, UA Negative Negative [facility] Nitrite, UA Negative Negative [facility] Leukocytes, UA Large (A) Negative [facility] Urobilinogen, UA 8.0 (H) 0.2 - 1.0 mg/dL [facility] RBC, UA 1 /HPF [facility] WBC, UA 18 /HPF [facility] Squam Epithel, UA <1 /HPF [facility] Specimen Source [facility] Specimen Urine Performing Organization Address City/[facility]/Zipcode Phone Number [address] [address] [place] Urine culture (12/10/2018 8:27 PM CDT) Result No growth [facility] Specimen Urine Performing Organization Address City/[facility]/Zipcode Phone Number [address] [address] [phone] [place] Respiratory Panel [facility] (12/10/2018 3:54 PM CDT) Human Metapneumovirus Not detected Not detected, [facility] Rhinovirus Not detected Not detected, [facility] Influenza A Not detected Not detected, [facility] INFLUENZA A (NO SUBTYPE) Not detected, [facility] Influenza A subtype H1 Not detected, [facility] Influenza A Subtype H3 Not detected, [facility] Influenza A Subtype H1-2009 Not detected, [facility] Influenza B Not detected Not detected, [facility] Respiratory Syncytial Virus Not detected Not detected, [facility] Parainfluenza Virus 1 Not detected Not detected, [facility] Parainfluenza Virus 2 Not detected Not detected, [facility] Parainfluenza virus 3 Not detected Not detected, [facility] Parainfluenza Virus 4 Not detected Not detected, [facility] Adenovirus Not detected Not detected, [facility] Coronavirus 229E Not detected Not detected, [facility] Coronavirus HKU1 Not detected Not detected, [facility] Coronavirus NL63 Not detected Not detected, [facility] Coronavirus OC43 Not detected Not detected, [facility] Bordetella Pertussis Not detected Not detected, [facility] Chlamydophila Pneumoniae Not detected Not detected, [facility] Mycoplasma Pneumoniae Not detected Not detected, [facility] Specimen Nasopharyngeal Narrative Performed At Other viruses and bacteria not targeted by [facility] this PCR panel cannot be excluded; therefore clinical correlation and follow up of serology, culture results, and other molecular studies is required. The results are not intended to be used as the sole means for clinical diagnosis or patient management decisions. This sample was tested at the [facility] Molecular [facility] using the [employer]Array Respiratory Panel. It is FDA cleared and has been verified and approved by the [facility] for clinical use on nasopharyngeal swab specimens. The performance of the FilmArray RP has not been established in individuals who received influenza vaccine.Recent administration of a nasal influenza vaccine may cause false positive results for Influenza A and/or Influenza B. Performing Organization Address City/State/Zipcode Phone Number [facility] [address] [place] [address] [phone] CENTER Blood Culture - Routine (Left Venipuncture) (12/10/2018 3:54 PM CDT)Only the most recent of5 resultswithin the time period is included. Result No growth in 5 days [facility] Specimen Blood Performing Organization Address [facility] Phone Number [facility] [address] [place] [address] CENTER XR chest 1 view portable / bedside (12/10/2018 12:45 PM CDT) Specimen Narrative Performed At FINAL REPORT [facility] TECHNIQUE: Frontal chest radiograph dated 12/10/2018. CLINICAL HISTORY: Fever COMPARISON STUDY: Chest radiograph dated 09/25/2017 IMPRESSION: Lungs are clear. No pleural effusion or pneumothorax. Cardiomediastinal silhouette is normal in size. No pulmonary edema. No fracture. Signed: Shantanu Ryan MD Report Verified Date/Time:12/10/2018 13:42:21 Reading Location: [facility] Reading Room Procedure Note Interface, External Ris In - 12/10/2018 1:44 PM CDT FINAL REPORT TECHNIQUE: Frontal chest radiograph dated 12/10/2018. CLINICAL HISTORY: Fever COMPARISON STUDY: Chest radiograph dated 09/25/2017 IMPRESSION: Lungs are clear. No pleural effusion or pneumothorax. Cardiomediastinal silhouette is normal in size. No pulmonary edema. No fracture. Signed: Shantanu Ryan MD Report Verified Date/Time: 12/10/2018 13:42:21 Reading Location: [facility] Reading Room Performing Organization Address City/[facility] Phone Number GE RIS CT chest with IV contrast (12/07/2018 9:47 PM CDT) Specimen Narrative Performed At FINAL REPORT [facility] EXAMINATION: Chest CT with IV contrast. CLINICAL [...] MD Report Verified Date/Time:12/08/2018 04:21:30 Reading Location: [address] Reading Room Procedure Note Interface, External [...] Report Verified Date/Time: 12/08/2018 04:21:30 Reading Location: [address] Reading Room Performing Organization Address City/State/Zipcode Phone Number [facility] MR abdomen without & with IV contrast (12/06/2018 8:48 AM CDT) Specimen Narrative Performed At FINAL REPORT [facility] MRI of the abdomen dated December 06, [...] MD Report Verified Date/Time:12/06/2018 10:49:29 Reading Location: [facility] B1 C013Y CT Body Reading Room Procedure Note [...] Report Verified Date/Time: 12/06/2018 10:49:29 Reading Location: [facility] B1 C013Y CT Body Reading Room Performing Organization Address City/State/Zipcode Phone Number [facility] Carbohydrate antigen 19-9 (CA 19-9) (12/06/2018 8:22 AM CDT) CA 19-9 <3 <34 U/mL [facility] Comment: This test was performed using the Siemens Chemiluminescent method. Values obtained from different assay methods cannot be used interchangeably. CA19-9 levels, regardless of value, should not be interpreted as absolute evidence of the presence or absence of disease. Specimen Blood Narrative Performed At Performing Lab [facility] EZ [facility] [id number] [place] [address] Rafa Gr MD, PhD, MARGARITA Performing Organization Address [facility] Phone Number [place] [address] [place] [address] Carcinoembryonic Antigen (CEA) (12/06/2018 5:42 AM CDT) CEA, SERUM 0.7 0.0 - 5.0 ng/mL [facility] Specimen Blood Performing Organization Address [facility] Phone Number [address] [address] [place] Hepatitis C PCR, Quantitative (12/05/2018 11:27 AM CDT) HCV PCR, Quantitative HCV RNA not detected HCV RNA not detected [facility] Specimen Blood Narrative Performed At This test uses a Real-Time Polymerase Chain [facility] Reaction (RT-PCR) methodology and was performed using DAVID Ampliprep/DAVID TaqMan HCV test kit version 2.0 ([employer]). Reportable range for this assay is 15 - 100,000,000 IU per mL (1.18 - 8.00 Log IU/mL). Performing Organization Address [facility] Phone Number [address] [address] [place] Hepatitis panel, acute (12/05/2018 5:19 AM CDT) Hep A IgM Nonreactive Nonreactive [facility] Hep B C IgM Nonreactive Nonreactive [facility] Hepatitis C Ab Reactive (A) Nonreactive [facility] hepatitis B Surface Ag Nonreactive Nonreactive [facility] Specimen Blood Performing Organization Address City/[facility]/Zipcode Phone Number [address] [address] [phone] [place] Magnesium (12/05/2018 5:19 AM CDT) Magnesium 2.1 1.6 - 2.6 mg/dL [facility] Specimen Blood Performing Organization Address City/[facility] Phone Number [address] [address] [phone] [place] Alpha fetoprotein (AFP), tumor marker (12/04/2018 9:32 PM CDT) Alpha-Fetoprotein >97375.0 (H) <10.0 ng/mL [facility] Specimen Blood Performing Organization Address [facility] Phone Number [address] [address] [place] CARDIAC CATH REPORT - SCAN (03/10/2018 12:01 PM CDT) Narrative Performed At POC ACTIVATED CLOTTING TIME (03/04/2018 3:45 PM CDT) Activated Clotting Time 269Comment: TESTED AT sec [address] [address] Specimen Blood Performing Organization Address [facility] Phone Number [address] [address] [phone] [place] Venous doppler leg, right (03/02/2018 8:00 PM CDT) Ejection Fraction [facility] Specimen Impressions Performed At Right Impression [facility] 1. There is no deep venous obstruction [...] cm Narrative Performed At LAB - Lower Extremities DVT Study [facility] Demographics Patient NATALIA Trejo Date of Study 03/02/2018 NORAH 57 Visit [id number] Male of 1960 Number [facility] Number 1035 Physician Tax Evaluator Marlee Gallagher T InterpretingJon Ramirez Physician , [...] Study 03/02/2018 NORAH Age 57 Visit Number [id number] Gender Male Date of 1960 Number Referring Ravi Fontana Room Number 1035 Physician Tax Evaluator Marlee Gallagher T Interpreting Jon Ramirez, Physician [...] are measured in cm Performing Organization Address City/[facility] Phone Number [facility] C-Reactive Protein (03/02/2018 6:07 PM CDT) CRP 0.04 0.00 - 0.50 mg/dL [facility] CENTER Specimen Blood Performing Organization Address City/[facility] Phone Number [address] [address] CENTER after 02/03/2018 Advance Directives For more information, please contact:[address] [phone] Code Status Date Activated Date Inactivated Comments Full Code 01/21/2019 9:13 PM 01/30/2019 7:52 PM This code status was determined by: Patient Full Code 12/26/2018 9:39 PM 01/03/2019 3:51 [...]
--- OUTSIDE RECORDS SUMMARY | 2019-02-04 19:46 | XMS REPORT ---
:1960 [facility] [address] [place] [address] Care Team Providers Name Role Phone JARRODCORRIEMADDIE SILVIA Unavailable Unavailable KAREN HOUSE Unavailable Unavailable CARLI WAN Unavailable Unavailable GRETA URBAN Unavailable Unavailable Problems This patient has no known problems. Allergies, Adverse Reactions, Alerts This patient has no known allergies or adverse reactions. Medications This patient has no known medications. Results Test Description Test Time Test Comments Text Results Atomic Results Result Comments BASIC METABOLIC PANEL 2019-01-30 05:37:00 Test Item Value Reference Range Comments SODIUM (BEAKER) (test 135 meq/L 136-145 iizu=619) POTASSIUM (BEAKER) (test 3.7 meq/L 3.5-5.1 Specimen slightly hemolyzed xsmo=444) CHLORIDE (BEAKER) (test 106 meq/L 98-107 rbrh=577) CO2 (BEAKER) (test 19 meq/L 22-29 ueqy=868) BLOOD UREA NITROGEN 7 mg/dL 7-21 (BEAKER) (test ktik=929) CREATININE (BEAKER) (test 0.74 mg/dL 0.57-1.25 Specimen slightly hemolyzed ckcz=925) GLUCOSE RANDOM (BEAKER) 102 mg/dL 70-105 (test kqon=767) CALCIUM (BEAKER) (test 8.3 mg/dL 8.4-10.2 hokc=467) EGFR (BEAKER) (test 132 mL/min/1.73 sq m ESTIMATED GFR IS NOT mdrx=7185) ACCURATE CREATININE CLEARANCE IN PREDICTING GLOMERULAR FILTRATION RATE. ESTIMATED GFR IS NOT APPLICABLE FOR DIALYSIS PATIENTS. HEPATIC FUNCTION [id number] 05:37:00 Test Item Value Reference Range Comments TOTAL PROTEIN (BEAKER) (test 6.1 gm/dL 6.0-8.3 Specimen slightly hemolyzed gtuz=922) ALBUMIN (BEAKER) (test 3.0 g/dL 3.5-5.0 Specimen slightly hemolyzed ncep=8779) BILIRUBIN TOTAL (BEAKER) (test 0.5 mg/dL 0.2-1.2 Specimen slightly hemolyzed cooe=557) BILIRUBIN DIRECT (BEAKER) (test 0.3 mg/dL 0.1-0.5 Specimen slightly hemolyzed mdwl=824) ALKALINE PHOSPHATASE (BEAKER) 172 U/L 40-150 (test shgu=456) AST (SGOT) (BEAKER) (test 240 U/L 5-34 Specimen slightly hemolyzed svez=150) ALT (SGPT) (BEAKER) (test 119 U/L 6-55 Specimen slightly hemolyzed avcs=268) CBC W/PLT COUNT & AUTO [id number] 05:22:00 Test Item Value Reference Range Comments WHITE BLOOD CELL COUNT (BEAKER) (test koin=591) 11.2 K/ L 3.5-10.5 RED BLOOD CELL COUNT (BEAKER) (test bjec=378) 3.55 M/ L 4.63-6.08 HEMOGLOBIN (BEAKER) (test jtth=786) 9.9 GM/DL 13.7-17.5 HEMATOCRIT (BEAKER) (test piuh=754) 31.1 % 40.1-51.0 MEAN CORPUSCULAR VOLUME (BEAKER) (test izik=156) 87.6 fL 79.0-92.2 MEAN CORPUSCULAR HEMOGLOBIN (BEAKER) (test 27.9 pg 25.7-32.2 vjfo=360) MEAN CORPUSCULAR HEMOGLOBIN CONC (BEAKER) (test 31.8 GM/DL 32.3-36.5 phsn=433) RED CELL DISTRIBUTION WIDTH (BEAKER) (test 17.3 % 11.6-14.4 wpgp=567) PLATELET COUNT (BEAKER) (test kdza=551) 800 K/CU MM 150-450 MEAN PLATELET VOLUME (BEAKER) (test mpre=584) 9.4 fL 9.4-12.4 NUCLEATED RED BLOOD CELLS (BEAKER) (test 0 /100 WBC 0-0 fpdw=103) NEUTROPHILS RELATIVE PERCENT (BEAKER) (test 68 % vwxr=069) LYMPHOCYTES RELATIVE PERCENT (BEAKER) (test 22 % yfju=824) MONOCYTES RELATIVE PERCENT (BEAKER) (test 8 % ubal=659) EOSINOPHILS RELATIVE PERCENT (BEAKER) (test 2 % wyde=908) BASOPHILS RELATIVE PERCENT (BEAKER) (test 0 % esef=609) NEUTROPHILS ABSOLUTE COUNT (BEAKER) (test 7.57 K/ L 1.78-5.38 yufr=033) LYMPHOCYTES ABSOLUTE COUNT (BEAKER) (test 2.46 K/ L 1.32-3.57 isra=756) MONOCYTES ABSOLUTE COUNT (BEAKER) (test 0.86 K/ L 0.30-0.82 yync=615) EOSINOPHILS ABSOLUTE COUNT (BEAKER) (test 0.20 K/ L 0.04-0.54 ifxl=423) BASOPHILS ABSOLUTE COUNT (BEAKER) (test 0.05 K/ L 0.01-0.08 koyn=830) IMMATURE GRANULOCYTES-RELATIVE PERCENT (BEAKER) 1 % 0-1 (test dpnr=2435) [id number] 05:11:00 Test Item Value Reference Range Comments PROTIME (BEAKER) (test zarr=791) 15.1 seconds 11.9-14.2 INR (BEAKER) (test sdhb=984) 1.2 <=5.9 PARTIAL THROMBOPLASTIN TIME (BEAKER) (test 39.2 seconds 22.5-36.0 hnio=396) Effective 10/21/2018: PT Reference Range ChangeNew: 11.9-14.2 Previous: 11.7- 14.7RECOMMENDED COUMADIN/WARFARIN INR THERAPY RANGESSTANDARD DOSE: 2.0-3.0 Includes: PROPHYLAXIS for venous thrombosis, systemic embolization; TREATMENT for venous thrombosis and/or pulmonary embolus.HIGH RISK: Target INR is2.5-3.5 for patients wiht mechanical heart valves.BASIC METABOLIC [id number] 07:41: 00 Test Item Value Reference Range Comments SODIUM (BEAKER) (test 139 meq/L 136-145 zeee=740) POTASSIUM (BEAKER) (test 3.9 meq/L 3.5-5.1 Specimen slightly rdlk=026) hemolyzed CHLORIDE (BEAKER) (test 108 meq/L 98-107 tclf=597) CO2 (BEAKER) (test 23 meq/L 22-29 fdon=805) BLOOD UREA NITROGEN 8 mg/dL 7-21 (BEAKER) (test dhqx=632) CREATININE (BEAKER) (test 0.83 mg/dL 0.57-1.25 Specimen slightly wkzn=832) hemolyzed GLUCOSE RANDOM (BEAKER) 118 mg/dL 70-105 (test mffw=143) CALCIUM (BEAKER) (test 8.3 mg/dL 8.4-10.2 bcpm=598) EGFR (BEAKER) (test 115 mL/min/1.73 sq m ESTIMATED GFR IS NOT qqrr=2672) ACCURATE CREATININE CLEARANCE IN PREDICTING GLOMERULAR FILTRATION RATE. ESTIMATED GFR IS NOT APPLICABLE FOR DIALYSIS PATIENTS. HEPATIC FUNCTION [id number] 07:41:00 Test Item Value Reference Range Comments TOTAL PROTEIN (BEAKER) (test 6.2 gm/dL 6.0-8.3 Specimen slightly hemolyzed bxlw=032) ALBUMIN (BEAKER) (test 3.1 g/dL 3.5-5.0 Specimen slightly hemolyzed gwcc=5994) BILIRUBIN TOTAL (BEAKER) (test 0.5 mg/dL 0.2-1.2 Specimen slightly hemolyzed ctth=121) BILIRUBIN DIRECT (BEAKER) (test 0.3 mg/dL 0.1-0.5 Specimen slightly hemolyzed maav=815) ALKALINE PHOSPHATASE (BEAKER) 190 U/L 40-150 (test tkwl=818) AST (SGOT) (BEAKER) (test 275 U/L 5-34 Specimen slightly hemolyzed swks=512) ALT (SGPT) (BEAKER) (test 142 U/L 6-55 Specimen slightly hemolyzed mljf=139) [id number] 05:50:00 Test Item Value Reference Range Comments PROTIME (BEAKER) (test myge=604) 14.9 seconds 11.9-14.2 INR (BEAKER) (test ozjf=452) 1.2 <=5.9 PARTIAL THROMBOPLASTIN TIME (BEAKER) (test 38.8 seconds 22.5-36.0 ewpi=182) Effective 10/21/2018: PT Reference Range ChangeNew: 11.9-14.2 Previous: 11.7- 14.7RECOMMENDED COUMADIN/WARFARIN INR THERAPY RANGESSTANDARD DOSE: 2.0-3.0 Includes: PROPHYLAXIS for venous thrombosis, systemic embolization; TREATMENT for venous thrombosis and/or pulmonary embolus.HIGH RISK: Target INR is2.5-3.5 for patients wiht mechanical heart valves.CBC W/PLT COUNT & AUTO [id number] 05:44:00 Test Item Value Reference Range Comments WHITE BLOOD CELL COUNT (BEAKER) (test mika=053) 11.2 K/ L 3.5-10.5 RED BLOOD CELL COUNT (BEAKER) (test oxfu=712) 3.67 M/ L 4.63-6.08 HEMOGLOBIN (BEAKER) (test kyhk=547) 10.4 GM/DL 13.7-17.5 HEMATOCRIT (BEAKER) (test gtlq=339) 32.6 % 40.1-51.0 MEAN CORPUSCULAR VOLUME (BEAKER) (test ivxm=291) 88.8 fL 79.0-92.2 MEAN CORPUSCULAR HEMOGLOBIN (BEAKER) (test 28.3 pg 25.7-32.2 jwvm=220) MEAN CORPUSCULAR HEMOGLOBIN CONC (BEAKER) (test 31.9 GM/DL 32.3-36.5 kiyd=223) RED CELL DISTRIBUTION WIDTH (BEAKER) (test 17.5 % 11.6-14.4 ijvg=906) PLATELET COUNT (BEAKER) (test rjen=210) 860 K/CU MM 150-450 MEAN PLATELET VOLUME (BEAKER) (test tqst=814) 9.0 fL 9.4-12.4 NUCLEATED RED BLOOD CELLS (BEAKER) (test 0 /100 WBC 0-0 azhz=079) NEUTROPHILS RELATIVE PERCENT (BEAKER) (test 71 % gjrc=373) LYMPHOCYTES RELATIVE PERCENT (BEAKER) (test 19 % kkso=159) MONOCYTES RELATIVE PERCENT (BEAKER) (test 7 % skcw=206) EOSINOPHILS RELATIVE PERCENT (BEAKER) (test 2 % aicb=507) BASOPHILS RELATIVE PERCENT (BEAKER) (test 0 % snsb=024) NEUTROPHILS ABSOLUTE COUNT (BEAKER) (test 7.99 K/ L 1.78-5.38 bbwb=809) LYMPHOCYTES ABSOLUTE COUNT (BEAKER) (test 2.14 K/ L 1.32-3.57 boyf=975) MONOCYTES ABSOLUTE COUNT (BEAKER) (test 0.74 K/ L 0.30-0.82 xywu=811) EOSINOPHILS ABSOLUTE COUNT (BEAKER) (test 0.26 K/ L 0.04-0.54 twyp=223) BASOPHILS ABSOLUTE COUNT (BEAKER) (test 0.05 K/ L 0.01-0.08 gniv=681) IMMATURE GRANULOCYTES-RELATIVE PERCENT (BEAKER) 0 % 0-1 (test iojt=4628) BASIC METABOLIC [id number] 07:45:00 Test Item Value Reference Range Comments SODIUM (BEAKER) (test 137 meq/L 136-145 cwhl=447) POTASSIUM (BEAKER) (test 4.3 meq/L 3.5-5.1 Specimen moderately iqal=910) hemolyzed CHLORIDE (BEAKER) (test 106 meq/L 98-107 icwi=954) CO2 (BEAKER) (test 21 meq/L 22-29 ssyv=457) BLOOD UREA NITROGEN 6 mg/dL 7-21 (BEAKER) (test agvh=316) CREATININE (BEAKER) (test 0.73 mg/dL 0.57-1.25 Specimen moderately qjie=679) hemolyzed GLUCOSE RANDOM (BEAKER) 98 mg/dL 70-105 (test lkml=085) CALCIUM (BEAKER) (test 8.1 mg/dL 8.4-10.2 gpga=119) EGFR (BEAKER) (test 134 mL/min/1.73 sq m ESTIMATED GFR IS NOT kuab=0592) ACCURATE CREATININE CLEARANCE IN PREDICTING GLOMERULAR FILTRATION RATE. ESTIMATED GFR IS NOT APPLICABLE FOR DIALYSIS PATIENTS. HEPATIC FUNCTION [id number] 07:45:00 Test Item Value Reference Range Comments TOTAL PROTEIN (BEAKER) (test 6.1 gm/dL 6.0-8.3 Specimen moderately hemolyzed ckvx=024) ALBUMIN (BEAKER) (test 3.0 g/dL 3.5-5.0 Specimen moderately hemolyzed ikfg=6431) BILIRUBIN TOTAL (BEAKER) (test 0.6 mg/dL 0.2-1.2 Specimen moderately hemolyzed pecn=824) BILIRUBIN DIRECT (BEAKER) 0.2 mg/dL 0.1-0.5 Specimen moderately hemolyzed (test yicn=310) ALKALINE PHOSPHATASE (BEAKER) 179 U/L 40-150 (test gova=177) AST (SGOT) (BEAKER) (test 315 U/L 5-34 Specimen moderately hemolyzed xvtc=795) ALT (SGPT) (BEAKER) (test 153 U/L 6-55 Specimen moderately hemolyzed xmnp=028) [id number] 07:00:00 Test Item Value Reference Range Comments PROTIME (BEAKER) (test jnll=915) 14.8 seconds 11.9-14.2 INR (BEAKER) (test irrj=611) 1.2 <=5.9 PARTIAL THROMBOPLASTIN TIME (BEAKER) (test 34.9 seconds 22.5-36.0 iyqb=451) Effective 10/21/2018: PT Reference Range ChangeNew: 11.9-14.2 Previous: 11.7- 14.7RECOMMENDED COUMADIN/WARFARIN INR THERAPY RANGESSTANDARD DOSE: 2.0-3.0 Includes: PROPHYLAXIS for venous thrombosis, systemic embolization; TREATMENT for venous thrombosis and/or pulmonary embolus.HIGH RISK: Target INR is2.5-3.5 for patients wiht mechanical heart valves.CBC W/PLT COUNT & AUTO [id number] 06:12:00 Test Item Value Reference Range Comments WHITE BLOOD CELL COUNT (BEAKER) (test fepy=657) 11.2 K/ L 3.5-10.5 RED BLOOD CELL COUNT (BEAKER) (test gqen=292) 3.53 M/ L 4.63-6.08 HEMOGLOBIN (BEAKER) (test cwsm=449) 10.1 GM/DL 13.7-17.5 HEMATOCRIT (BEAKER) (test fcbv=081) 30.9 % 40.1-51.0 MEAN CORPUSCULAR VOLUME (BEAKER) (test axgo=055) 87.5 fL 79.0-92.2 MEAN CORPUSCULAR HEMOGLOBIN (BEAKER) (test 28.6 pg 25.7-32.2 lxfu=290) MEAN CORPUSCULAR HEMOGLOBIN CONC (BEAKER) (test 32.7 GM/DL 32.3-36.5 vnmm=381) RED CELL DISTRIBUTION WIDTH (BEAKER) (test 17.8 % 11.6-14.4 zwef=604) PLATELET COUNT (BEAKER) (test qtno=344) 842 K/CU MM 150-450 MEAN PLATELET VOLUME (BEAKER) (test dbpq=190) 9.4 fL 9.4-12.4 NUCLEATED RED BLOOD CELLS (BEAKER) (test 0 /100 WBC 0-0 frsu=718) NEUTROPHILS RELATIVE PERCENT (BEAKER) (test 70 % dbuo=750) LYMPHOCYTES RELATIVE PERCENT (BEAKER) (test 21 % zxdq=349) MONOCYTES RELATIVE PERCENT (BEAKER) (test 7 % wbvc=712) EOSINOPHILS RELATIVE PERCENT (BEAKER) (test 2 % xunk=748) BASOPHILS RELATIVE PERCENT (BEAKER) (test 1 % enki=829) NEUTROPHILS ABSOLUTE COUNT (BEAKER) (test 7.81 K/ L 1.78-5.38 nxyl=487) LYMPHOCYTES ABSOLUTE COUNT (BEAKER) (test 2.32 K/ L 1.32-3.57 saon=599) MONOCYTES ABSOLUTE COUNT (BEAKER) (test 0.74 K/ L 0.30-0.82 zpgu=224) EOSINOPHILS ABSOLUTE COUNT (BEAKER) (test 0.25 K/ L 0.04-0.54 nldk=510) BASOPHILS ABSOLUTE COUNT (BEAKER) (test 0.06 K/ L 0.01-0.08 dqkv=647) IMMATURE GRANULOCYTES-RELATIVE PERCENT (BEAKER) 0 % 0-1 (test nbqf=3445) RAD, FOOT, MIN 3 VIEWS, [id number] 10:22:00Reason for exam:->woundFINAL REPORT CLINICAL HISTORY: wound TECHNIQUE: 3 views of the right foot COMPARISON: 03/13/2018 IMPRESSION: The bones of the foot are diffusely osteopenic without evidence of fracture or dislocation. There is a soft tissue ulceration of the dorsal midfoot without evidence of a radiopaque foreign body. Signed: Teodoro Sibley MDReport Verified Date/Time: 01/27/2019 10: 22:00 Reading Location: [facility] Radiology Reading Room [id number] 04:40:00 Test Item Value Reference Range Comments PROTIME (BEAKER) (test gcpm=552) 14.8 seconds 11.9-14.2 INR (BEAKER) (test ocpw=285) 1.2 <=5.9 PARTIAL THROMBOPLASTIN TIME (BEAKER) (test 37.8 seconds 22.5-36.0 zync=682) Effective 10/21/2018: PT Reference Range ChangeNew: 11.9-14.2 Previous: 11.7- 14.7RECOMMENDED COUMADIN/WARFARIN INR THERAPY RANGESSTANDARD DOSE: 2.0-3.0 Includes: PROPHYLAXIS for venous thrombosis, systemic embolization; TREATMENT for venous thrombosis and/or pulmonary embolus.HIGH RISK: Target INR is2.5-3.5 for patients wiht mechanical heart valves.HEPATIC FUNCTION [id number] 04:38 :00 Test Item Value Reference Range Comments TOTAL PROTEIN (BEAKER) (test dsdw=576) 6.2 gm/dL 6.0-8.3 ALBUMIN (BEAKER) (test lnby=3099) 3.2 g/dL 3.5-5.0 BILIRUBIN TOTAL (BEAKER) (test fsvk=261) 0.5 mg/dL 0.2-1.2 BILIRUBIN DIRECT (BEAKER) (test qvyw=991) 0.4 mg/dL 0.1-0.5 ALKALINE PHOSPHATASE (BEAKER) (test ptoa=461) 185 U/L 40-150 AST (SGOT) (BEAKER) (test iuny=517) 304 U/L 5-34 ALT (SGPT) (BEAKER) (test wxxw=461) 142 U/L 6-55 BASIC METABOLIC [id number] 04:38:00 Test Item Value Reference Range Comments SODIUM (BEAKER) (test 138 meq/L 136-145 adnv=367) POTASSIUM (BEAKER) (test 3.1 meq/L 3.5-5.1 jytc=746) CHLORIDE (BEAKER) (test 105 meq/L 98-107 gpoi=482) CO2 (BEAKER) (test 25 meq/L 22-29 bcgu=416) BLOOD UREA NITROGEN 6 mg/dL 7-21 (BEAKER) (test puhh=266) CREATININE (BEAKER) (test 0.76 mg/dL 0.57-1.25 aaea=996) GLUCOSE RANDOM (BEAKER) 142 mg/dL 70-105 (test jbsa=869) CALCIUM (BEAKER) (test 8.0 mg/dL 8.4-10.2 ztgp=130) EGFR (BEAKER) (test 128 mL/min/1.73 sq m ESTIMATED GFR IS NOT fvrj=5295) ACCURATE CREATININE CLEARANCE IN PREDICTING GLOMERULAR FILTRATION RATE. ESTIMATED GFR IS NOT APPLICABLE FOR DIALYSIS PATIENTS. CBC W/PLT COUNT & AUTO [id number] 04:31:00 Test Item Value Reference Range Comments WHITE BLOOD CELL COUNT (BEAKER) (test rwyj=138) 11.3 K/ L 3.5-10.5 RED BLOOD CELL COUNT (BEAKER) (test fqqg=670) 3.68 M/ L 4.63-6.08 HEMOGLOBIN (BEAKER) (test joca=926) 10.5 GM/DL 13.7-17.5 HEMATOCRIT (BEAKER) (test pobm=300) 32.6 % 40.1-51.0 MEAN CORPUSCULAR VOLUME (BEAKER) (test jjgp=475) 88.6 fL 79.0-92.2 MEAN CORPUSCULAR HEMOGLOBIN (BEAKER) (test 28.5 pg 25.7-32.2 dkew=159) MEAN CORPUSCULAR HEMOGLOBIN CONC (BEAKER) (test 32.2 GM/DL 32.3-36.5 fnai=186) RED CELL DISTRIBUTION WIDTH (BEAKER) (test 17.9 % 11.6-14.4 zqxp=172) PLATELET COUNT (BEAKER) (test jltu=674) 833 K/CU MM 150-450 MEAN PLATELET VOLUME (BEAKER) (test mpuq=969) 9.3 fL 9.4-12.4 NUCLEATED RED BLOOD CELLS (BEAKER) (test 0 /100 WBC 0-0 gpiw=558) NEUTROPHILS RELATIVE PERCENT (BEAKER) (test 67 % bilp=961) LYMPHOCYTES RELATIVE PERCENT (BEAKER) (test 24 % okkm=108) MONOCYTES RELATIVE PERCENT (BEAKER) (test 6 % mqtx=954) EOSINOPHILS RELATIVE PERCENT (BEAKER) (test 2 % wurv=336) BASOPHILS RELATIVE PERCENT (BEAKER) (test 0 % lfdd=733) NEUTROPHILS ABSOLUTE COUNT (BEAKER) (test 7.60 K/ L 1.78-5.38 abtb=822) LYMPHOCYTES ABSOLUTE COUNT (BEAKER) (test 2.66 K/ L 1.32-3.57 xmya=046) MONOCYTES ABSOLUTE COUNT (BEAKER) (test 0.72 K/ L 0.30-0.82 lkus=486) EOSINOPHILS ABSOLUTE COUNT (BEAKER) (test 0.22 K/ L 0.04-0.54 rbia=853) BASOPHILS ABSOLUTE COUNT (BEAKER) (test 0.04 K/ L 0.01-0.08 nykq=507) IMMATURE GRANULOCYTES-RELATIVE PERCENT (BEAKER) 0 % 0-1 (test lryu=0907) CBC W/PLT COUNT & AUTO [id number] 04:55:00 Test Item Value Reference Range Comments WHITE BLOOD CELL COUNT (BEAKER) (test fcxv=529) 11.0 K/ L 3.5-10.5 RED BLOOD CELL COUNT (BEAKER) (test sjqj=245) 3.83 M/ L 4.63-6.08 HEMOGLOBIN (BEAKER) (test awoq=186) 10.8 GM/DL 13.7-17.5 HEMATOCRIT (BEAKER) (test mjcg=079) 33.8 % 40.1-51.0 MEAN CORPUSCULAR VOLUME (BEAKER) (test uewt=286) 88.3 fL 79.0-92.2 MEAN CORPUSCULAR HEMOGLOBIN (BEAKER) (test 28.2 pg 25.7-32.2 faak=675) MEAN CORPUSCULAR HEMOGLOBIN CONC (BEAKER) (test 32.0 GM/DL 32.3-36.5 glbz=112) RED CELL DISTRIBUTION WIDTH (BEAKER) (test 18.2 % 11.6-14.4 buye=779) PLATELET COUNT (BEAKER) (test nmyc=183) 906 K/CU MM 150-450 MEAN PLATELET VOLUME (BEAKER) (test jjjb=653) 9.5 fL 9.4-12.4 NUCLEATED RED BLOOD CELLS (BEAKER) (test 0 /100 WBC 0-0 kgat=298) NEUTROPHILS RELATIVE PERCENT (BEAKER) (test 75 % uhvg=418) LYMPHOCYTES RELATIVE PERCENT (BEAKER) (test 16 % lqee=641) MONOCYTES RELATIVE PERCENT (BEAKER) (test 7 % qjwb=001) EOSINOPHILS RELATIVE PERCENT (BEAKER) (test 1 % xayd=928) BASOPHILS RELATIVE PERCENT (BEAKER) (test 0 % mpds=296) NEUTROPHILS ABSOLUTE COUNT (BEAKER) (test 8.24 K/ L 1.78-5.38 awur=066) LYMPHOCYTES ABSOLUTE COUNT (BEAKER) (test 1.77 K/ L 1.32-3.57 ekbh=381) MONOCYTES ABSOLUTE COUNT (BEAKER) (test 0.75 K/ L 0.30-0.82 sxla=875) EOSINOPHILS ABSOLUTE COUNT (BEAKER) (test 0.14 K/ L 0.04-0.54 cvid=094) BASOPHILS ABSOLUTE COUNT (BEAKER) (test 0.02 K/ L 0.01-0.08 xgyv=804) IMMATURE GRANULOCYTES-RELATIVE PERCENT (BEAKER) 0 % 0-1 (test uodg=2915) HEPATIC FUNCTION [id number] 04:53:00 Test Item Value Reference Range Comments TOTAL PROTEIN (BEAKER) (test welb=627) 6.5 gm/dL 6.0-8.3 ALBUMIN (BEAKER) (test oscx=6437) 3.4 g/dL 3.5-5.0 BILIRUBIN TOTAL (BEAKER) (test otve=448) 0.8 mg/dL 0.2-1.2 BILIRUBIN DIRECT (BEAKER) (test oxhg=049) 0.5 mg/dL 0.1-0.5 ALKALINE PHOSPHATASE (BEAKER) (test sqmi=492) 166 U/L 40-150 AST (SGOT) (BEAKER) (test btiw=439) 352 U/L 5-34 ALT (SGPT) (BEAKER) (test qqvi=047) 137 U/L 6-55 BASIC METABOLIC [id number] 04:53:00 Test Item Value Reference Range Comments SODIUM (BEAKER) (test 141 meq/L 136-145 nqvk=956) POTASSIUM (BEAKER) (test 3.2 meq/L 3.5-5.1 jydb=742) CHLORIDE (BEAKER) (test 106 meq/L 98-107 zkad=750) CO2 (BEAKER) (test 24 meq/L 22-29 anmk=436) BLOOD UREA NITROGEN 8 mg/dL 7-21 (BEAKER) (test egrp=289) CREATININE (BEAKER) (test 0.73 mg/dL 0.57-1.25 fjyz=256) GLUCOSE RANDOM (BEAKER) 118 mg/dL 70-105 (test vgim=302) CALCIUM (BEAKER) (test 8.5 mg/dL 8.4-10.2 bcka=854) EGFR (BEAKER) (test 134 mL/min/1.73 sq m ESTIMATED GFR IS NOT qxqi=9349) ACCURATE CREATININE CLEARANCE IN PREDICTING GLOMERULAR FILTRATION RATE. ESTIMATED GFR IS NOT APPLICABLE FOR DIALYSIS PATIENTS. PT/[id number] 04:41:00 Test Item Value Reference Range Comments PROTIME (BEAKER) (test qhmp=045) 14.3 seconds 11.9-14.2 INR (BEAKER) (test izvo=483) 1.2 <=5.9 PARTIAL THROMBOPLASTIN TIME (BEAKER) (test 39.2 seconds 22.5-36.0 sdpp=428) Effective 10/21/2018: PT Reference Range ChangeNew: 11.9-14.2 Previous: 11.7- 14.7RECOMMENDED COUMADIN/WARFARIN INR THERAPY RANGESSTANDARD DOSE: 2.0-3.0 Includes: PROPHYLAXIS for venous thrombosis, systemic embolization; TREATMENT for venous thrombosis and/or pulmonary embolus.HIGH RISK: Target INR is2.5-3.5 for patients wiht mechanical heart valves.U/S, ABDOMINAL, [id number] 13: 44:00Reason for exam:->ascitesFINAL REPORT Ultrasound of the abdomen. Clinical History: ascites. Comparisonstudy: MRI dated December 06, 2018. Findings: The liver is heterogeneous in echotexture and measures 22.8 cm in length. A 13.4 x 10.5 x 13.7 cm mass is seen involving a large portion of the liver includingthe entire left lobe. There is no evidence [...] 1. Hepatomegaly with large mass consistent with neoplasm.2. Gallbladder sludge and polyps.3. Nonocclusive left renal calculus.4. Limited visibility study.5. No ascites. Signed: Sage Avendaño Verified Date/ Time: 01/25/2019 13:44:29 Reading Location: [address] Reading Room HEPATIC FUNCTION [id number] 05:53:00 Test Item Value Reference Range Comments TOTAL PROTEIN (BEAKER) (test fous=859) 6.0 gm/dL 6.0-8.3 ALBUMIN (BEAKER) (test zrrs=3052) 3.2 g/dL 3.5-5.0 BILIRUBIN TOTAL (BEAKER) (test gxuv=474) 0.7 mg/dL 0.2-1.2 BILIRUBIN DIRECT (BEAKER) (test mwgo=920) 0.5 mg/dL 0.1-0.5 ALKALINE PHOSPHATASE (BEAKER) (test mioy=147) 161 U/L 40-150 AST (SGOT) (BEAKER) (test vytz=053) 337 U/L 5-34 ALT (SGPT) (BEAKER) (test redx=273) 109 U/L 6-55 BASIC METABOLIC [id number] 05:53:00 Test Item Value Reference Range Comments SODIUM (BEAKER) (test 139 meq/L 136-145 mkhi=986) POTASSIUM (BEAKER) (test 3.5 meq/L 3.5-5.1 avlq=273) CHLORIDE (BEAKER) (test 106 meq/L 98-107 tacf=272) CO2 (BEAKER) (test 25 meq/L 22-29 rkav=614) BLOOD UREA NITROGEN 8 mg/dL 7-21 (BEAKER) (test jons=669) CREATININE (BEAKER) (test 0.70 mg/dL 0.57-1.25 cozr=315) GLUCOSE RANDOM (BEAKER) 90 mg/dL 70-105 (test ozbo=979) CALCIUM (BEAKER) (test 8.3 mg/dL 8.4-10.2 vwsq=503) EGFR (BEAKER) (test 140 mL/min/1.73 sq m ESTIMATED GFR IS NOT wbvu=3335) ACCURATE CREATININE CLEARANCE IN PREDICTING GLOMERULAR FILTRATION RATE. ESTIMATED GFR IS NOT APPLICABLE FOR DIALYSIS PATIENTS. CBC W/PLT COUNT & AUTO [id number] 05:38:00 Test Item Value Reference Range Comments WHITE BLOOD CELL COUNT (BEAKER) (test zkzb=385) 10.2 K/ L 3.5-10.5 RED BLOOD CELL COUNT (BEAKER) (test gtgb=796) 3.59 M/ L 4.63-6.08 HEMOGLOBIN (BEAKER) (test bfjy=822) 10.2 GM/DL 13.7-17.5 HEMATOCRIT (BEAKER) (test bsgv=152) 31.6 % 40.1-51.0 MEAN CORPUSCULAR VOLUME (BEAKER) (test pcqz=647) 88.0 fL 79.0-92.2 MEAN CORPUSCULAR HEMOGLOBIN (BEAKER) (test 28.4 pg 25.7-32.2 dkek=870) MEAN CORPUSCULAR HEMOGLOBIN CONC (BEAKER) (test 32.3 GM/DL 32.3-36.5 hxgy=307) RED CELL DISTRIBUTION WIDTH (BEAKER) (test 18.2 % 11.6-14.4 ladm=120) PLATELET COUNT (BEAKER) (test sdex=214) 847 K/CU MM 150-450 MEAN PLATELET VOLUME (BEAKER) (test nowg=392) 8.9 fL 9.4-12.4 NUCLEATED RED BLOOD CELLS (BEAKER) (test 0 /100 WBC 0-0 gjeg=347) NEUTROPHILS RELATIVE PERCENT (BEAKER) (test 67 % lwqu=124) LYMPHOCYTES RELATIVE PERCENT (BEAKER) (test 23 % qwtr=458) MONOCYTES RELATIVE PERCENT (BEAKER) (test 7 % hmhc=650) EOSINOPHILS RELATIVE PERCENT (BEAKER) (test 2 % iixy=465) BASOPHILS RELATIVE PERCENT (BEAKER) (test 0 % urrh=490) NEUTROPHILS ABSOLUTE COUNT (BEAKER) (test 6.80 K/ L 1.78-5.38 hurt=058) LYMPHOCYTES ABSOLUTE COUNT (BEAKER) (test 2.38 K/ L 1.32-3.57 pmrl=034) MONOCYTES ABSOLUTE COUNT (BEAKER) (test 0.72 K/ L 0.30-0.82 vjyo=978) EOSINOPHILS ABSOLUTE COUNT (BEAKER) (test 0.23 K/ L 0.04-0.54 poyi=164) BASOPHILS ABSOLUTE COUNT (BEAKER) (test 0.01 K/ L 0.01-0.08 wmxp=369) IMMATURE GRANULOCYTES-RELATIVE PERCENT (BEAKER) 1 % 0-1 (test oaiq=4716) [id number] 05:27:00 Test Item Value Reference Range Comments PROTIME (BEAKER) (test obmo=645) 14.2 seconds 11.9-14.2 INR (BEAKER) (test axge=134) 1.2 <=5.9 PARTIAL THROMBOPLASTIN TIME (BEAKER) (test 34.8 seconds 22.5-36.0 zojv=912) Effective 10/21/2018: PT Reference Range ChangeNew: 11.9-14.2 Previous: 11.7- 14.7RECOMMENDED COUMADIN/WARFARIN INR THERAPY RANGESSTANDARD DOSE: 2.0-3.0 Includes: PROPHYLAXIS for venous thrombosis, systemic embolization; TREATMENT for venous thrombosis and/or pulmonary embolus.HIGH RISK: Target INR is2.5-3.5 for patients wiht mechanical heart valves.HEPATIC FUNCTION [id number] 07:25 :00 Test Item Value Reference Range Comments TOTAL PROTEIN (BEAKER) (test eymi=963) 6.4 gm/dL 6.0-8.3 ALBUMIN (BEAKER) (test ptzb=2993) 3.3 g/dL 3.5-5.0 BILIRUBIN TOTAL (BEAKER) (test knmc=967) 1.0 mg/dL 0.2-1.2 BILIRUBIN DIRECT (BEAKER) (test dnxg=231) 0.6 mg/dL 0.1-0.5 ALKALINE PHOSPHATASE (BEAKER) (test tbep=526) 180 U/L 40-150 AST (SGOT) (BEAKER) (test otxk=350) 363 U/L 5-34 ALT (SGPT) (BEAKER) (test kgic=495) 107 U/L 6-55 BASIC METABOLIC [id number] 07:25:00 Test Item Value Reference Range Comments SODIUM (BEAKER) (test 139 meq/L 136-145 vafn=852) POTASSIUM (BEAKER) (test 3.8 meq/L 3.5-5.1 kzxu=101) CHLORIDE (BEAKER) (test 105 meq/L 98-107 hnuf=221) CO2 (BEAKER) (test 24 meq/L 22-29 pwyt=164) BLOOD UREA NITROGEN 11 mg/dL 7-21 (BEAKER) (test nxem=437) CREATININE (BEAKER) (test 0.81 mg/dL 0.57-1.25 kbuk=348) GLUCOSE RANDOM (BEAKER) 106 mg/dL 70-105 (test pkfl=993) CALCIUM (BEAKER) (test 8.5 mg/dL 8.4-10.2 typx=316) EGFR (BEAKER) (test 119 mL/min/1.73 sq m ESTIMATED GFR IS NOT uuns=2740) ACCURATE CREATININE CLEARANCE IN PREDICTING GLOMERULAR FILTRATION RATE. ESTIMATED GFR IS NOT APPLICABLE FOR DIALYSIS PATIENTS. [id number] 06:49:00 Test Item Value Reference Range Comments PROTIME (BEAKER) (test vsxm=147) 14.4 seconds 11.9-14.2 INR (BEAKER) (test ytnm=666) 1.2 <=5.9 PARTIAL THROMBOPLASTIN TIME (BEAKER) (test 35.7 seconds 22.5-36.0 oshl=452) Effective 10/21/2018: PT Reference Range ChangeNew: 11.9-14.2 Previous: 11.7- 14.7RECOMMENDED COUMADIN/WARFARIN INR THERAPY RANGESSTANDARD DOSE: 2.0-3.0 Includes: PROPHYLAXIS for venous thrombosis, systemic embolization; TREATMENT for venous thrombosis and/or pulmonary embolus.HIGH RISK: Target INR is2.5-3.5 for patients wiht mechanical heart valves.CBC W/PLT COUNT & AUTO [id number] 06:33:00 Test Item Value Reference Range Comments WHITE BLOOD CELL COUNT (BEAKER) (test vsev=438) 11.7 K/ L 3.5-10.5 RED BLOOD CELL COUNT (BEAKER) (test ours=416) 3.67 M/ L 4.63-6.08 HEMOGLOBIN (BEAKER) (test yidh=839) 10.3 GM/DL 13.7-17.5 HEMATOCRIT (BEAKER) (test rvvg=774) 32.4 % 40.1-51.0 MEAN CORPUSCULAR VOLUME (BEAKER) (test jizi=922) 88.3 fL 79.0-92.2 MEAN CORPUSCULAR HEMOGLOBIN (BEAKER) (test 28.1 pg 25.7-32.2 pjue=301) MEAN CORPUSCULAR HEMOGLOBIN CONC (BEAKER) (test 31.8 GM/DL 32.3-36.5 hwgf=139) RED CELL DISTRIBUTION WIDTH (BEAKER) (test 18.6 % 11.6-14.4 rrsn=351) PLATELET COUNT (BEAKER) (test eatg=957) 856 K/CU MM 150-450 MEAN PLATELET VOLUME (BEAKER) (test eynz=581) 9.6 fL 9.4-12.4 NUCLEATED RED BLOOD CELLS (BEAKER) (test 0 /100 WBC 0-0 evht=829) NEUTROPHILS RELATIVE PERCENT (BEAKER) (test 74 % orhq=212) LYMPHOCYTES RELATIVE PERCENT (BEAKER) (test 17 % jyai=789) MONOCYTES RELATIVE PERCENT (BEAKER) (test 6 % tabz=180) EOSINOPHILS RELATIVE PERCENT (BEAKER) (test 2 % iyge=816) BASOPHILS RELATIVE PERCENT (BEAKER) (test 0 % tzvb=984) NEUTROPHILS ABSOLUTE COUNT (BEAKER) (test 8.68 K/ L 1.78-5.38 jmpr=303) LYMPHOCYTES ABSOLUTE COUNT (BEAKER) (test 1.94 K/ L 1.32-3.57 rvht=114) MONOCYTES ABSOLUTE COUNT (BEAKER) (test 0.75 K/ L 0.30-0.82 ovtv=249) EOSINOPHILS ABSOLUTE COUNT (BEAKER) (test 0.27 K/ L 0.04-0.54 phyx=986) BASOPHILS ABSOLUTE COUNT (BEAKER) (test 0.03 K/ L 0.01-0.08 uelh=648) IMMATURE GRANULOCYTES-RELATIVE PERCENT (BEAKER) 0 % 0-1 (test gybi=6191) BASIC METABOLIC [id number] 06:18:00 Test Item Value Reference Range Comments SODIUM (BEAKER) (test 137 meq/L 136-145 jwib=178) POTASSIUM (BEAKER) (test 3.6 meq/L 3.5-5.1 hubs=478) CHLORIDE (BEAKER) (test 105 meq/L 98-107 rfep=557) CO2 (BEAKER) (test 21 meq/L 22-29 zgun=452) BLOOD UREA NITROGEN 11 mg/dL 7-21 (BEAKER) (test obzq=407) CREATININE (BEAKER) (test 0.82 mg/dL 0.57-1.25 nfxk=430) GLUCOSE RANDOM (BEAKER) 206 mg/dL 70-105 (test dcoq=805) CALCIUM (BEAKER) (test 7.9 mg/dL 8.4-10.2 xrub=137) EGFR (BEAKER) (test 117 mL/min/1.73 sq m ESTIMATED GFR IS NOT urrc=4805) ACCURATE CREATININE CLEARANCE IN PREDICTING GLOMERULAR FILTRATION RATE. ESTIMATED GFR IS NOT APPLICABLE FOR DIALYSIS PATIENTS. HEPATIC FUNCTION [id number] 05:54:00 Test Item Value Reference Range Comments TOTAL PROTEIN (BEAKER) (test ivix=432) 6.1 gm/dL 6.0-8.3 ALBUMIN (BEAKER) (test fxuo=0043) 3.2 g/dL 3.5-5.0 BILIRUBIN TOTAL (BEAKER) (test wqbb=355) 1.4 mg/dL 0.2-1.2 BILIRUBIN DIRECT (BEAKER) (test ltvw=442) 0.8 mg/dL 0.1-0.5 ALKALINE PHOSPHATASE (BEAKER) (test dsfp=441) 187 U/L 40-150 AST (SGOT) (BEAKER) (test vosy=346) 329 U/L 5-34 ALT (SGPT) (BEAKER) (test sjuj=964) 97 U/L 6-55 CBC W/PLT COUNT & AUTO [id number] 05:14:00 Test Item Value Reference Range Comments WHITE BLOOD CELL COUNT 12.7 K/ L 3.5-10.5 (BEAKER) (test kkog=626) RED BLOOD CELL COUNT (BEAKER) 3.71 M/ L 4.63-6.08 (test iwfj=605) HEMOGLOBIN (BEAKER) (test 10.2 GM/DL 13.7-17.5 tsbi=349) HEMATOCRIT (BEAKER) (test 32.1 % 40.1-51.0 svhe=406) MEAN CORPUSCULAR VOLUME 86.5 fL 79.0-92.2 Discordant MCV results (BEAKER) (test khlw=812) compared to previous results; clinical correlation required. MEAN CORPUSCULAR HEMOGLOBIN 27.5 pg 25.7-32.2 (BEAKER) (test rpdw=051) MEAN CORPUSCULAR HEMOGLOBIN 31.8 GM/DL 32.3-36.5 CONC (BEAKER) (test qmnc=831) RED CELL DISTRIBUTION WIDTH 19.0 % 11.6-14.4 (BEAKER) (test perd=399) PLATELET COUNT (BEAKER) (test 773 K/CU MM 150-450 nmjd=678) MEAN PLATELET VOLUME (BEAKER) 9.4 fL 9.4-12.4 (test zvss=708) NUCLEATED RED BLOOD CELLS 0 /100 WBC 0-0 (BEAKER) (test afme=144) NEUTROPHILS RELATIVE PERCENT 77 % (BEAKER) (test jpou=111) LYMPHOCYTES RELATIVE PERCENT 13 % (BEAKER) (test iftb=411) MONOCYTES RELATIVE PERCENT 7 % (BEAKER) (test qmsh=063) EOSINOPHILS RELATIVE PERCENT 3 % (BEAKER) (test avnj=760) BASOPHILS RELATIVE PERCENT 1 % (BEAKER) (test riwl=802) NEUTROPHILS ABSOLUTE COUNT 9.74 K/ L 1.78-5.38 (BEAKER) (test pgpj=455) LYMPHOCYTES ABSOLUTE COUNT 1.64 K/ L 1.32-3.57 (BEAKER) (test owfa=113) MONOCYTES ABSOLUTE COUNT 0.87 K/ L 0.30-0.82 (BEAKER) (test lesv=242) EOSINOPHILS ABSOLUTE COUNT 0.32 K/ L 0.04-0.54 (BEAKER) (test mfci=505) BASOPHILS ABSOLUTE COUNT 0.06 K/ L 0.01-0.08 (BEAKER) (test luwp=180) IMMATURE 1 % 0-1 GRANULOCYTES-RELATIVE PERCENT (BEAKER) (test tnis=5146) [id number] 04:58:00 Test Item Value Reference Range Comments PROTIME (BEAKER) (test ensg=394) 14.3 seconds 11.9-14.2 INR (BEAKER) (test qbqt=125) 1.2 <=5.9 PARTIAL THROMBOPLASTIN TIME (BEAKER) (test 37.9 seconds 22.5-36.0 alir=598) Effective 10/21/2018: PT Reference Range ChangeNew: 11.9-14.2 Previous: 11.7- 14.7RECOMMENDED COUMADIN/WARFARIN INR THERAPY RANGESSTANDARD DOSE: 2.0-3.0 Includes: PROPHYLAXIS for venous thrombosis, systemic embolization; TREATMENT for venous thrombosis and/or pulmonary embolus.HIGH RISK: Target INR is2.5-3.5 for patients wiht mechanical heart valves.HEMOGLOBIN AND [id number] 17 :31:00 Test Item Value Reference Range Comments HEMOGLOBIN (BEAKER) (test nmiu=987) 11.0 GM/DL 13.7-17.5 HEMATOCRIT (BEAKER) (test wnge=708) 33.2 % 40.1-51.0 COMPREHENSIVE METABOLIC [id number] 22:51:00 Test Item Value Reference Range Comments TOTAL PROTEIN (BEAKER) 6.7 gm/dL 6.0-8.3 (test fvui=173) ALBUMIN (BEAKER) (test 3.5 g/dL 3.5-5.0 zwku=1973) ALKALINE PHOSPHATASE 211 U/L 40-150 (BEAKER) (test msrw=115) BILIRUBIN TOTAL (BEAKER) 0.6 mg/dL 0.2-1.2 (test spqb=226) SODIUM (BEAKER) (test 137 meq/L 136-145 wrxd=754) POTASSIUM (BEAKER) (test 3.8 meq/L 3.5-5.1 eodr=006) CHLORIDE (BEAKER) (test 106 meq/L 98-107 xcvw=234) CO2 (BEAKER) (test 20 meq/L 22-29 hspx=054) BLOOD UREA NITROGEN 12 mg/dL 7-21 (BEAKER) (test mdqr=704) CREATININE (BEAKER) (test 0.77 mg/dL 0.57-1.25 yvwv=482) GLUCOSE RANDOM (BEAKER) 95 mg/dL 70-105 (test kyzi=222) CALCIUM (BEAKER) (test 8.5 mg/dL 8.4-10.2 poky=582) AST (SGOT) (BEAKER) (test 378 U/L 5-34 oebz=436) ALT (SGPT) (BEAKER) (test 104 U/L 6-55 ckau=669) EGFR (BEAKER) (test 126 mL/min/1.73 sq ESTIMATED GFR IS NOT bksb=9655) m ACCURATE CREATININE CLEARANCE IN PREDICTING GLOMERULAR FILTRATION RATE. ESTIMATED GFR IS NOT APPLICABLE FOR DIALYSIS PATIENTS. PROTHROMBIN TIME/[id number] 22:46:00 Test Item Value Reference Range Comments PROTIME (BEAKER) (test azqd=485) 15.5 seconds 11.9-14.2 INR (BEAKER) (test nnvy=344) 1.3 <=5.9 Effective 10/21/2018: PT Reference Range ChangeNew: 11.9-14.2 Previous: 11.7- 14.7RECOMMENDED COUMADIN/WARFARIN INR THERAPY RANGESSTANDARD DOSE: 2.0-3.0 Includes: PROPHYLAXIS for venous thrombosis, systemic embolization; TREATMENT for venous thrombosis and/or pulmonary embolus.HIGH RISK: Target INR is2.5-3.5 for patients wiht mechanical heart valves.CBC W/PLT COUNT & AUTO [id number] 22:39:00 Test Item Value Reference Range Comments WHITE BLOOD CELL COUNT (BEAKER) (test cxdg=269) 12.8 K/ L 3.5-10.5 RED BLOOD CELL COUNT (BEAKER) (test qahs=619) 2.20 M/ L 4.63-6.08 HEMOGLOBIN (BEAKER) (test ilwb=557) 6.2 GM/DL 13.7-17.5 HEMATOCRIT (BEAKER) (test xuoe=836) 20.0 % 40.1-51.0 MEAN CORPUSCULAR VOLUME (BEAKER) (test kahf=736) 90.9 fL 79.0-92.2 MEAN CORPUSCULAR HEMOGLOBIN (BEAKER) (test 28.2 pg 25.7-32.2 xqrf=878) MEAN CORPUSCULAR HEMOGLOBIN CONC (BEAKER) (test 31.0 GM/DL 32.3-36.5 waqv=961) RED CELL DISTRIBUTION WIDTH (BEAKER) (test 18.4 % 11.6-14.4 jmhq=874) PLATELET COUNT (BEAKER) (test agxc=313) 759 K/CU MM 150-450 MEAN PLATELET VOLUME (BEAKER) (test mvnj=655) 9.1 fL 9.4-12.4 NUCLEATED RED BLOOD CELLS (BEAKER) (test 0 /100 WBC 0-0 xphi=544) NEUTROPHILS RELATIVE PERCENT (BEAKER) (test 77 % rtaf=819) LYMPHOCYTES RELATIVE PERCENT (BEAKER) (test 15 % ddnr=373) MONOCYTES RELATIVE PERCENT (BEAKER) (test 7 % ypwu=576) EOSINOPHILS RELATIVE PERCENT (BEAKER) (test 1 % stie=338) BASOPHILS RELATIVE PERCENT (BEAKER) (test 0 % qgth=587) NEUTROPHILS ABSOLUTE COUNT (BEAKER) (test 9.81 K/ L 1.78-5.38 msyb=145) LYMPHOCYTES ABSOLUTE COUNT (BEAKER) (test 1.92 K/ L 1.32-3.57 qvqv=437) MONOCYTES ABSOLUTE COUNT (BEAKER) (test 0.86 K/ L 0.30-0.82 gqql=603) EOSINOPHILS ABSOLUTE COUNT (BEAKER) (test 0.09 K/ L 0.04-0.54 ayhg=804) BASOPHILS ABSOLUTE COUNT (BEAKER) (test 0.03 K/ L 0.01-0.08 lwlt=144) IMMATURE GRANULOCYTES-RELATIVE PERCENT (BEAKER) 1 % 0-1 (test cykf=5671) [id number] 05:39:00 Test Item Value Reference Range Comments FIBRINOGEN LEVEL (BEAKER) (test gyys=062) 504 mg/dl 225-434 HEPATIC FUNCTION [id number] 05:12:00 Test Item Value Reference Range Comments TOTAL PROTEIN (BEAKER) (test eghl=392) 6.6 gm/dL 6.0-8.3 ALBUMIN (BEAKER) (test bezv=7490) 3.3 g/dL 3.5-5.0 BILIRUBIN TOTAL (BEAKER) (test vkno=268) 0.6 mg/dL 0.2-1.2 BILIRUBIN DIRECT (BEAKER) (test ffuc=562) 0.5 mg/dL 0.1-0.5 ALKALINE PHOSPHATASE (BEAKER) (test ptkg=376) 172 U/L 40-150 AST (SGOT) (BEAKER) (test hcuz=353) 297 U/L 5-34 ALT (SGPT) (BEAKER) (test afiy=399) 177 U/L 6-55 BASIC METABOLIC [id number] 05:12:00 Test Item Value Reference Range Comments SODIUM (BEAKER) (test 132 meq/L 136-145 hqps=673) POTASSIUM (BEAKER) (test 4.0 meq/L 3.5-5.1 ahxl=479) CHLORIDE (BEAKER) (test 99 meq/L 98-107 nvwg=584) CO2 (BEAKER) (test 25 meq/L 22-29 uqji=882) BLOOD UREA NITROGEN 7 mg/dL 7-21 (BEAKER) (test rvoe=931) CREATININE (BEAKER) (test 0.75 mg/dL 0.57-1.25 ynqb=503) GLUCOSE RANDOM (BEAKER) 93 mg/dL 70-105 (test vffm=610) CALCIUM (BEAKER) (test 8.8 mg/dL 8.4-10.2 fdvf=164) EGFR (BEAKER) (test 130 mL/min/1.73 sq m ESTIMATED GFR IS NOT fyhu=2118) ACCURATE CREATININE CLEARANCE IN PREDICTING GLOMERULAR FILTRATION RATE. ESTIMATED GFR IS NOT APPLICABLE FOR DIALYSIS PATIENTS. CBC W/PLT COUNT & AUTO [id number] 05:00:00 Test Item Value Reference Range Comments WHITE BLOOD CELL COUNT (BEAKER) (test kotn=448) 10.9 K/ L 3.5-10.5 RED BLOOD CELL COUNT (BEAKER) (test yext=059) 2.96 M/ L 4.63-6.08 HEMOGLOBIN (BEAKER) (test wbnk=283) 8.6 GM/DL 13.7-17.5 HEMATOCRIT (BEAKER) (test nwoj=977) 25.7 % 40.1-51.0 MEAN CORPUSCULAR VOLUME (BEAKER) (test kstq=188) 86.8 fL 79.0-92.2 MEAN CORPUSCULAR HEMOGLOBIN (BEAKER) (test 29.1 pg 25.7-32.2 hilc=060) MEAN CORPUSCULAR HEMOGLOBIN CONC (BEAKER) (test 33.5 GM/DL 32.3-36.5 pejs=652) RED CELL DISTRIBUTION WIDTH (BEAKER) (test 15.1 % 11.6-14.4 nbfc=045) PLATELET COUNT (BEAKER) (test ewfq=450) 671 K/CU MM 150-450 MEAN PLATELET VOLUME (BEAKER) (test xzuy=914) 9.4 fL 9.4-12.4 NUCLEATED RED BLOOD CELLS (BEAKER) (test 0 /100 WBC 0-0 qtnm=544) NEUTROPHILS RELATIVE PERCENT (BEAKER) (test 68 % hurd=780) LYMPHOCYTES RELATIVE PERCENT (BEAKER) (test 22 % fdot=441) MONOCYTES RELATIVE PERCENT (BEAKER) (test 7 % ialn=080) EOSINOPHILS RELATIVE PERCENT (BEAKER) (test 2 % xybk=981) BASOPHILS RELATIVE PERCENT (BEAKER) (test 1 % qivc=808) NEUTROPHILS ABSOLUTE COUNT (BEAKER) (test 7.43 K/ L 1.78-5.38 mjyu=057) LYMPHOCYTES ABSOLUTE COUNT (BEAKER) (test 2.40 K/ L 1.32-3.57 qkjc=039) MONOCYTES ABSOLUTE COUNT (BEAKER) (test 0.75 K/ L 0.30-0.82 amnu=140) EOSINOPHILS ABSOLUTE COUNT (BEAKER) (test 0.23 K/ L 0.04-0.54 eius=460) BASOPHILS ABSOLUTE COUNT (BEAKER) (test 0.05 K/ L 0.01-0.08 khkq=763) IMMATURE GRANULOCYTES-RELATIVE PERCENT (BEAKER) 1 % 0-1 (test pubx=0094) CBC W/PLT COUNT & AUTO [id number] 06:22:00 Test Item Value Reference Range Comments WHITE BLOOD CELL COUNT (BEAKER) (test mtds=102) 11.9 K/ L 3.5-10.5 RED BLOOD CELL COUNT (BEAKER) (test iuob=267) 2.77 M/ L 4.63-6.08 HEMOGLOBIN (BEAKER) (test wcgl=702) 8.0 GM/DL 13.7-17.5 HEMATOCRIT (BEAKER) (test xhqn=746) 24.2 % 40.1-51.0 MEAN CORPUSCULAR VOLUME (BEAKER) (test tvyo=714) 87.4 fL 79.0-92.2 MEAN CORPUSCULAR HEMOGLOBIN (BEAKER) (test 28.9 pg 25.7-32.2 emev=446) MEAN CORPUSCULAR HEMOGLOBIN CONC (BEAKER) (test 33.1 GM/DL 32.3-36.5 jmtv=607) RED CELL DISTRIBUTION WIDTH (BEAKER) (test 14.9 % 11.6-14.4 ynmq=086) PLATELET COUNT (BEAKER) (test foue=246) 644 K/CU MM 150-450 MEAN PLATELET VOLUME (BEAKER) (test mblt=129) 9.7 fL 9.4-12.4 NUCLEATED RED BLOOD CELLS (BEAKER) (test 0 /100 WBC 0-0 epfl=204) NEUTROPHILS RELATIVE PERCENT (BEAKER) (test 74 % ovrf=975) LYMPHOCYTES RELATIVE PERCENT (BEAKER) (test 18 % tnpl=029) MONOCYTES RELATIVE PERCENT (BEAKER) (test 6 % gdyv=715) EOSINOPHILS RELATIVE PERCENT (BEAKER) (test 2 % fryr=717) BASOPHILS RELATIVE PERCENT (BEAKER) (test 0 % ymdx=881) NEUTROPHILS ABSOLUTE COUNT (BEAKER) (test 8.73 K/ L 1.78-5.38 pgdt=087) LYMPHOCYTES ABSOLUTE COUNT (BEAKER) (test 2.15 K/ L 1.32-3.57 ubgd=506) MONOCYTES ABSOLUTE COUNT (BEAKER) (test 0.67 K/ L 0.30-0.82 istn=673) EOSINOPHILS ABSOLUTE COUNT (BEAKER) (test 0.21 K/ L 0.04-0.54 etgl=902) BASOPHILS ABSOLUTE COUNT (BEAKER) (test 0.05 K/ L 0.01-0.08 rpgp=486) IMMATURE GRANULOCYTES-RELATIVE PERCENT (BEAKER) 0 % 0-1 (test kijt=1558) HEPATIC FUNCTION [id number] 05:48:00 Test Item Value Reference Range Comments TOTAL PROTEIN (BEAKER) (test notv=229) 6.2 gm/dL 6.0-8.3 ALBUMIN (BEAKER) (test domd=2460) 3.2 g/dL 3.5-5.0 BILIRUBIN TOTAL (BEAKER) (test jswg=272) 0.6 mg/dL 0.2-1.2 BILIRUBIN DIRECT (BEAKER) (test dsgr=426) 0.5 mg/dL 0.1-0.5 ALKALINE PHOSPHATASE (BEAKER) (test ctah=850) 177 U/L 40-150 AST (SGOT) (BEAKER) (test osmq=047) 377 U/L 5-34 ALT (SGPT) (BEAKER) (test xbmw=512) 198 U/L 6-55 BASIC METABOLIC [id number] 05:48:00 Test Item Value Reference Range Comments SODIUM (BEAKER) (test 134 meq/L 136-145 iyyt=803) POTASSIUM (BEAKER) (test 4.1 meq/L 3.5-5.1 zspy=470) CHLORIDE (BEAKER) (test 101 meq/L 98-107 lumt=365) CO2 (BEAKER) (test 26 meq/L 22-29 exob=188) BLOOD UREA NITROGEN 7 mg/dL 7-21 (BEAKER) (test meke=992) CREATININE (BEAKER) (test 0.71 mg/dL 0.57-1.25 qbkb=479) GLUCOSE RANDOM (BEAKER) 103 mg/dL 70-105 (test ewgc=691) CALCIUM (BEAKER) (test 8.7 mg/dL 8.4-10.2 pjnt=202) EGFR (BEAKER) (test 138 mL/min/1.73 sq m ESTIMATED GFR IS NOT yzqz=6453) ACCURATE CREATININE CLEARANCE IN PREDICTING GLOMERULAR FILTRATION RATE. ESTIMATED GFR IS NOT APPLICABLE FOR DIALYSIS PATIENTS. HEPATIC FUNCTION [id number] 05:17:00 Test Item Value Reference Range Comments TOTAL PROTEIN (BEAKER) (test hkeb=462) 6.5 gm/dL 6.0-8.3 ALBUMIN (BEAKER) (test djmz=3209) 3.3 g/dL 3.5-5.0 BILIRUBIN TOTAL (BEAKER) (test yapa=906) 0.7 mg/dL 0.2-1.2 BILIRUBIN DIRECT (BEAKER) (test bajp=321) 0.5 mg/dL 0.1-0.5 ALKALINE PHOSPHATASE (BEAKER) (test lqje=643) 191 U/L 40-150 AST (SGOT) (BEAKER) (test irvh=677) 461 U/L 5-34 ALT (SGPT) (BEAKER) (test thvj=651) 204 U/L 6-55 BASIC METABOLIC [id number] 05:17:00 Test Item Value Reference Range Comments SODIUM (BEAKER) (test 132 meq/L 136-145 gqjk=515) POTASSIUM (BEAKER) (test 4.1 meq/L 3.5-5.1 rhuv=731) CHLORIDE (BEAKER) (test 101 meq/L 98-107 gdsm=898) CO2 (BEAKER) (test 22 meq/L 22-29 ukne=116) BLOOD UREA NITROGEN 11 mg/dL 7-21 (BEAKER) (test rpib=090) CREATININE (BEAKER) (test 0.76 mg/dL 0.57-1.25 cwno=705) GLUCOSE RANDOM (BEAKER) 107 mg/dL 70-105 (test jtea=744) CALCIUM (BEAKER) (test 8.9 mg/dL 8.4-10.2 cotg=024) EGFR (BEAKER) (test 128 mL/min/1.73 sq m ESTIMATED GFR IS NOT wzbs=8587) ACCURATE CREATININE CLEARANCE IN PREDICTING GLOMERULAR FILTRATION RATE. ESTIMATED GFR IS NOT APPLICABLE FOR DIALYSIS PATIENTS. CBC W/PLT COUNT & AUTO [id number] 05:02:00 Test Item Value Reference Range Comments WHITE BLOOD CELL COUNT (BEAKER) (test kyrk=138) 12.8 K/ L 3.5-10.5 RED BLOOD CELL COUNT (BEAKER) (test tomg=796) 3.01 M/ L 4.63-6.08 HEMOGLOBIN (BEAKER) (test buns=799) 8.6 GM/DL 13.7-17.5 HEMATOCRIT (BEAKER) (test pxtr=946) 26.3 % 40.1-51.0 MEAN CORPUSCULAR VOLUME (BEAKER) (test fftx=376) 87.4 fL 79.0-92.2 MEAN CORPUSCULAR HEMOGLOBIN (BEAKER) (test 28.6 pg 25.7-32.2 awal=414) MEAN CORPUSCULAR HEMOGLOBIN CONC (BEAKER) (test 32.7 GM/DL 32.3-36.5 kjgj=137) RED CELL DISTRIBUTION WIDTH (BEAKER) (test 15.0 % 11.6-14.4 zslk=276) PLATELET COUNT (BEAKER) (test bjfn=492) 641 K/CU MM 150-450 MEAN PLATELET VOLUME (BEAKER) (test tqhf=681) 9.3 fL 9.4-12.4 NUCLEATED RED BLOOD CELLS (BEAKER) (test 0 /100 WBC 0-0 hpbd=178) NEUTROPHILS RELATIVE PERCENT (BEAKER) (test 75 % vtpl=461) LYMPHOCYTES RELATIVE PERCENT (BEAKER) (test 16 % btwz=541) MONOCYTES RELATIVE PERCENT (BEAKER) (test 6 % vsun=268) EOSINOPHILS RELATIVE PERCENT (BEAKER) (test 1 % inzp=951) BASOPHILS RELATIVE PERCENT (BEAKER) (test 0 % nzyk=383) NEUTROPHILS ABSOLUTE COUNT (BEAKER) (test 9.64 K/ L 1.78-5.38 evkz=342) LYMPHOCYTES ABSOLUTE COUNT (BEAKER) (test 2.08 K/ L 1.32-3.57 jeva=449) MONOCYTES ABSOLUTE COUNT (BEAKER) (test 0.81 K/ L 0.30-0.82 fzea=777) EOSINOPHILS ABSOLUTE COUNT (BEAKER) (test 0.16 K/ L 0.04-0.54 jpnk=903) BASOPHILS ABSOLUTE COUNT (BEAKER) (test 0.03 K/ L 0.01-0.08 xgbe=962) IMMATURE GRANULOCYTES-RELATIVE PERCENT (BEAKER) 1 % 0-1 (test vlmf=8370) HEPATIC FUNCTION [id number] 06:29:00 Test Item Value Reference Range Comments TOTAL PROTEIN (BEAKER) (test iayg=116) 6.2 gm/dL 6.0-8.3 ALBUMIN (BEAKER) (test ogmd=6117) 3.2 g/dL 3.5-5.0 BILIRUBIN TOTAL (BEAKER) (test mwps=003) 0.5 mg/dL 0.2-1.2 BILIRUBIN DIRECT (BEAKER) (test bpoq=378) 0.4 mg/dL 0.1-0.5 ALKALINE PHOSPHATASE (BEAKER) (test sikg=407) 198 U/L 40-150 AST (SGOT) (BEAKER) (test ixhs=608) 401 U/L 5-34 ALT (SGPT) (BEAKER) (test ihls=255) 173 U/L 6-55 BASIC METABOLIC [id number] 06:29:00 Test Item Value Reference Range Comments SODIUM (BEAKER) (test 132 meq/L 136-145 opwo=791) POTASSIUM (BEAKER) (test 4.2 meq/L 3.5-5.1 ncyg=545) CHLORIDE (BEAKER) (test 100 meq/L 98-107 duto=569) CO2 (BEAKER) (test 25 meq/L 22-29 vpnh=156) BLOOD UREA NITROGEN 9 mg/dL 7-21 (BEAKER) (test ydpl=979) CREATININE (BEAKER) (test 0.71 mg/dL 0.57-1.25 iffo=920) GLUCOSE RANDOM (BEAKER) 101 mg/dL 70-105 (test tuhf=488) CALCIUM (BEAKER) (test 8.6 mg/dL 8.4-10.2 pmqe=097) EGFR (BEAKER) (test 138 mL/min/1.73 sq m ESTIMATED GFR IS NOT fykh=8518) ACCURATE CREATININE CLEARANCE IN PREDICTING GLOMERULAR FILTRATION RATE. ESTIMATED GFR IS NOT APPLICABLE FOR DIALYSIS PATIENTS. CBC W/PLT COUNT & AUTO [id number] 05:32:00 Test Item Value Reference Range Comments WHITE BLOOD CELL COUNT (BEAKER) (test grqp=714) 13.3 K/ L 3.5-10.5 RED BLOOD CELL COUNT (BEAKER) (test wrxo=972) 3.03 M/ L 4.63-6.08 HEMOGLOBIN (BEAKER) (test ikos=828) 8.6 GM/DL 13.7-17.5 HEMATOCRIT (BEAKER) (test myux=680) 26.4 % 40.1-51.0 MEAN CORPUSCULAR VOLUME (BEAKER) (test eypp=836) 87.1 fL 79.0-92.2 MEAN CORPUSCULAR HEMOGLOBIN (BEAKER) (test 28.4 pg 25.7-32.2 wwmd=070) MEAN CORPUSCULAR HEMOGLOBIN CONC (BEAKER) (test 32.6 GM/DL 32.3-36.5 udgj=803) RED CELL DISTRIBUTION WIDTH (BEAKER) (test 14.7 % 11.6-14.4 wsyi=630) PLATELET COUNT (BEAKER) (test zxpa=280) 623 K/CU MM 150-450 MEAN PLATELET VOLUME (BEAKER) (test fpxd=546) 9.4 fL 9.4-12.4 NUCLEATED RED BLOOD CELLS (BEAKER) (test 0 /100 WBC 0-0 zkqs=988) NEUTROPHILS RELATIVE PERCENT (BEAKER) (test 76 % eeak=918) LYMPHOCYTES RELATIVE PERCENT (BEAKER) (test 15 % bgkd=465) MONOCYTES RELATIVE PERCENT (BEAKER) (test 7 % nfgy=324) EOSINOPHILS RELATIVE PERCENT (BEAKER) (test 2 % zvns=023) BASOPHILS RELATIVE PERCENT (BEAKER) (test 0 % emae=392) NEUTROPHILS ABSOLUTE COUNT (BEAKER) (test 10.04 K/ L 1.78-5.38 ryta=187) LYMPHOCYTES ABSOLUTE COUNT (BEAKER) (test 2.01 K/ L 1.32-3.57 tmpa=268) MONOCYTES ABSOLUTE COUNT (BEAKER) (test 0.88 K/ L 0.30-0.82 ijlp=421) EOSINOPHILS ABSOLUTE COUNT (BEAKER) (test 0.23 K/ L 0.04-0.54 zgvj=223) BASOPHILS ABSOLUTE COUNT (BEAKER) (test 0.04 K/ L 0.01-0.08 iijv=649) IMMATURE GRANULOCYTES-RELATIVE PERCENT (BEAKER) 1 % 0-1 (test hhjb=4119) HEPATIC FUNCTION [id number] 07:36:00 Test Item Value Reference Range Comments TOTAL PROTEIN (BEAKER) (test ruto=286) 6.4 gm/dL 6.0-8.3 ALBUMIN (BEAKER) (test gzyq=3336) 3.3 g/dL 3.5-5.0 BILIRUBIN TOTAL (BEAKER) (test xkpb=677) 0.6 mg/dL 0.2-1.2 BILIRUBIN DIRECT (BEAKER) (test jzyw=557) 0.5 mg/dL 0.1-0.5 ALKALINE PHOSPHATASE (BEAKER) (test qkwz=922) 202 U/L 40-150 AST (SGOT) (BEAKER) (test spir=402) 459 U/L 5-34 ALT (SGPT) (BEAKER) (test uusp=346) 163 U/L 6-55 BASIC METABOLIC [id number] 06:55:00 Test Item Value Reference Range Comments SODIUM (BEAKER) (test 132 meq/L 136-145 dcfh=558) POTASSIUM (BEAKER) (test 4.3 meq/L 3.5-5.1 fvkb=930) CHLORIDE (BEAKER) (test 100 meq/L 98-107 pezb=606) CO2 (BEAKER) (test 24 meq/L 22-29 pgvg=719) BLOOD UREA NITROGEN 9 mg/dL 7-21 (BEAKER) (test sihk=295) CREATININE (BEAKER) (test 0.73 mg/dL 0.57-1.25 akhl=206) GLUCOSE RANDOM (BEAKER) 86 mg/dL 70-105 (test rvfx=144) CALCIUM (BEAKER) (test 8.3 mg/dL 8.4-10.2 broj=976) EGFR (BEAKER) (test 134 mL/min/1.73 sq m ESTIMATED GFR IS NOT lqjb=7401) ACCURATE CREATININE CLEARANCE IN PREDICTING GLOMERULAR FILTRATION RATE. ESTIMATED GFR IS NOT APPLICABLE FOR DIALYSIS PATIENTS. CBC W/PLT COUNT & AUTO [id number] 06:11:00 Test Item Value Reference Range Comments WHITE BLOOD CELL COUNT (BEAKER) (test cwac=885) 12.4 K/ L 3.5-10.5 RED BLOOD CELL COUNT (BEAKER) (test xcwd=016) 2.95 M/ L 4.63-6.08 HEMOGLOBIN (BEAKER) (test bsni=894) 8.4 GM/DL 13.7-17.5 HEMATOCRIT (BEAKER) (test neys=530) 25.8 % 40.1-51.0 MEAN CORPUSCULAR VOLUME (BEAKER) (test xzeb=925) 87.5 fL 79.0-92.2 MEAN CORPUSCULAR HEMOGLOBIN (BEAKER) (test 28.5 pg 25.7-32.2 exjg=974) MEAN CORPUSCULAR HEMOGLOBIN CONC (BEAKER) (test 32.6 GM/DL 32.3-36.5 klag=271) RED CELL DISTRIBUTION WIDTH (BEAKER) (test 14.7 % 11.6-14.4 kjcp=771) PLATELET COUNT (BEAKER) (test ywfo=917) 621 K/CU MM 150-450 MEAN PLATELET VOLUME (BEAKER) (test yyio=868) 10.0 fL 9.4-12.4 NUCLEATED RED BLOOD CELLS (BEAKER) (test 0 /100 WBC 0-0 ohrc=915) NEUTROPHILS RELATIVE PERCENT (BEAKER) (test 74 % eqpc=363) LYMPHOCYTES RELATIVE PERCENT (BEAKER) (test 19 % sigh=192) MONOCYTES RELATIVE PERCENT (BEAKER) (test 5 % fzri=613) EOSINOPHILS RELATIVE PERCENT (BEAKER) (test 2 % bckm=655) BASOPHILS RELATIVE PERCENT (BEAKER) (test 0 % ajiw=290) NEUTROPHILS ABSOLUTE COUNT (BEAKER) (test 9.23 K/ L 1.78-5.38 jeno=553) LYMPHOCYTES ABSOLUTE COUNT (BEAKER) (test 2.30 K/ L 1.32-3.57 xwus=356) MONOCYTES ABSOLUTE COUNT (BEAKER) (test 0.58 K/ L 0.30-0.82 hlza=220) EOSINOPHILS ABSOLUTE COUNT (BEAKER) (test 0.21 K/ L 0.04-0.54 lyyh=253) BASOPHILS ABSOLUTE COUNT (BEAKER) (test 0.03 K/ L 0.01-0.08 lrhx=796) IMMATURE GRANULOCYTES-RELATIVE PERCENT (BEAKER) 1 % 0-1 (test megb=3629) CT, CTA AAA, W/ [place].EXT.[id number] 18:44:00Addendum BeginsREPORT STATUS:A Addendum: December 29, 2018 [...] MDReport Verified Date/Time: 12/29/2018 18:44:42 Reading Location: [facility] P048 Angio Body Reading RoomAddendum EndsFINAL REPORT CT [...] proximal 1.5 cm. In the right, the [place] right SFA is occluded. The right profunda system is patent. A femoral to popliteal bypass of is identified and the graft is essentially occluded. The [place] right popliteal artery is not enhanced by [...] of a short stent identified in the [place] right SFA and the most proximal margin [...] dictated regarding the non-vascular findings by the Can Closing Machine Operator Radiologist. Signed: Shawn Restrepo MDReport Verified Date/Time: 12/29/2018 14:49:55 Reading Location: [place] [address] Cardiology MRI [id number] 17:55:00 Test Item Value Reference Range Comments FERRITIN (BEAKER) (test gnbm=928) 1372 ng/mL 5-275 PERIPHERAL BLOOD SMEAR - HOLD [id number] 17:40:00 Test Item Value Reference Range Comments PERIPHERAL SMEAR SAVE (BEAKER) (test ztzc=2665) saved IRON, TIBC, % SAT. (WITHOUT FERRITIN)2018-12-29 17:35:00 Test Item Value Reference Range Comments IRON (BEAKER) (test ldrn=254) 27.0 ug/dL 40.0-160.0 TOTAL IRON BINDING CAPACITY (BEAKER) (test 294 ug/dL 250-450 ncbt=974) IRON % SATURATION (2) (BEAKER) (test orny=7067) 9 % 20-55 HEPATIC FUNCTION [id number] 07:03:00 Test Item Value Reference Range Comments TOTAL PROTEIN (BEAKER) (test kjiu=920) 6.6 gm/dL 6.0-8.3 ALBUMIN (BEAKER) (test nuce=6513) 3.3 g/dL 3.5-5.0 BILIRUBIN TOTAL (BEAKER) (test uyjl=725) 0.7 mg/dL 0.2-1.2 BILIRUBIN DIRECT (BEAKER) (test rxwu=733) 0.5 mg/dL 0.1-0.5 ALKALINE PHOSPHATASE (BEAKER) (test cqfw=696) 220 U/L 40-150 AST (SGOT) (BEAKER) (test qmqw=566) 414 U/L 5-34 ALT (SGPT) (BEAKER) (test sgvi=868) 137 U/L 6-55 BASIC METABOLIC [id number] 07:03:00 Test Item Value Reference Range Comments SODIUM (BEAKER) (test 131 meq/L 136-145 vkaq=860) POTASSIUM (BEAKER) (test 3.9 meq/L 3.5-5.1 rigf=118) CHLORIDE (BEAKER) (test 99 meq/L 98-107 hwhy=861) CO2 (BEAKER) (test 21 meq/L 22-29 jxoa=438) BLOOD UREA NITROGEN 15 mg/dL 7-21 (BEAKER) (test zfcw=418) CREATININE (BEAKER) (test 0.81 mg/dL 0.57-1.25 lnpa=141) GLUCOSE RANDOM (BEAKER) 86 mg/dL 70-105 (test zwae=306) CALCIUM (BEAKER) (test 8.4 mg/dL 8.4-10.2 zbaw=854) EGFR (BEAKER) (test 119 mL/min/1.73 sq m ESTIMATED GFR IS NOT mjrc=7736) ACCURATE CREATININE CLEARANCE IN PREDICTING GLOMERULAR FILTRATION RATE. ESTIMATED GFR IS NOT APPLICABLE FOR DIALYSIS PATIENTS. CBC W/PLT COUNT & AUTO [id number] 06:04:00 Test Item Value Reference Range Comments WHITE BLOOD CELL COUNT (BEAKER) (test zqst=920) 11.4 K/ L 3.5-10.5 RED BLOOD CELL COUNT (BEAKER) (test egdz=680) 3.12 M/ L 4.63-6.08 HEMOGLOBIN (BEAKER) (test ooow=012) 9.0 GM/DL 13.7-17.5 HEMATOCRIT (BEAKER) (test yyxi=264) 26.8 % 40.1-51.0 MEAN CORPUSCULAR VOLUME (BEAKER) (test iybd=336) 85.9 fL 79.0-92.2 MEAN CORPUSCULAR HEMOGLOBIN (BEAKER) (test 28.8 pg 25.7-32.2 hngv=633) MEAN CORPUSCULAR HEMOGLOBIN CONC (BEAKER) (test 33.6 GM/DL 32.3-36.5 jgph=114) RED CELL DISTRIBUTION WIDTH (BEAKER) (test 14.7 % 11.6-14.4 niqa=422) PLATELET COUNT (BEAKER) (test lsto=281) 738 K/CU MM 150-450 MEAN PLATELET VOLUME (BEAKER) (test xawm=669) 9.4 fL 9.4-12.4 NUCLEATED RED BLOOD CELLS (BEAKER) (test 0 /100 WBC 0-0 xwmh=024) NEUTROPHILS RELATIVE PERCENT (BEAKER) (test 69 % ynkj=275) LYMPHOCYTES RELATIVE PERCENT (BEAKER) (test 23 % gfrb=870) MONOCYTES RELATIVE PERCENT (BEAKER) (test 6 % bovp=555) EOSINOPHILS RELATIVE PERCENT (BEAKER) (test 2 % vaqa=340) BASOPHILS RELATIVE PERCENT (BEAKER) (test 0 % srny=627) NEUTROPHILS ABSOLUTE COUNT (BEAKER) (test 7.90 K/ L 1.78-5.38 ueit=447) LYMPHOCYTES ABSOLUTE COUNT (BEAKER) (test 2.61 K/ L 1.32-3.57 ljxk=649) MONOCYTES ABSOLUTE COUNT (BEAKER) (test 0.65 K/ L 0.30-0.82 sxak=679) EOSINOPHILS ABSOLUTE COUNT (BEAKER) (test 0.17 K/ L 0.04-0.54 vygg=328) BASOPHILS ABSOLUTE COUNT (BEAKER) (test 0.03 K/ L 0.01-0.08 qsih=380) IMMATURE GRANULOCYTES-RELATIVE PERCENT (BEAKER) 1 % 0-1 (test wubf=4460) [id number] 13:49:00 Test Item Value Reference Range Comments PARTIAL THROMBOPLASTIN TIME (BEAKER) (test 95.9 seconds 22.5-36.0 ykuq=239) [id number] 06:55:00 Test Item Value Reference Range Comments PARTIAL THROMBOPLASTIN TIME (BEAKER) (test 67.1 seconds 22.5-36.0 tfsk=996) HEPATIC FUNCTION [id number] 06:34:00 Test Item Value Reference Range Comments TOTAL PROTEIN (BEAKER) (test iwkl=582) 6.9 gm/dL 6.0-8.3 ALBUMIN (BEAKER) (test gnun=0534) 3.5 g/dL 3.5-5.0 BILIRUBIN TOTAL (BEAKER) (test gjer=908) 0.8 mg/dL 0.2-1.2 BILIRUBIN DIRECT (BEAKER) (test rlhz=410) 0.6 mg/dL 0.1-0.5 ALKALINE PHOSPHATASE (BEAKER) (test nltc=756) 243 U/L 40-150 AST (SGOT) (BEAKER) (test advv=019) 372 U/L 5-34 ALT (SGPT) (BEAKER) (test rmsh=322) 128 U/L 6-55 BASIC METABOLIC [id number] 06:34:00 Test Item Value Reference Range Comments SODIUM (BEAKER) (test 128 meq/L 136-145 eoyn=872) POTASSIUM (BEAKER) (test 3.7 meq/L 3.5-5.1 mgjm=374) CHLORIDE (BEAKER) (test 96 meq/L 98-107 azez=432) CO2 (BEAKER) (test 25 meq/L 22-29 cavm=158) BLOOD UREA NITROGEN 15 mg/dL 7-21 (BEAKER) (test dxkh=106) CREATININE (BEAKER) (test 0.80 mg/dL 0.57-1.25 pulb=852) GLUCOSE RANDOM (BEAKER) 105 mg/dL 70-105 (test zikh=042) CALCIUM (BEAKER) (test 9.0 mg/dL 8.4-10.2 urwq=067) EGFR (BEAKER) (test 120 mL/min/1.73 sq m ESTIMATED GFR IS NOT ixqy=5122) ACCURATE CREATININE CLEARANCE IN PREDICTING GLOMERULAR FILTRATION RATE. ESTIMATED GFR IS NOT APPLICABLE FOR DIALYSIS PATIENTS. CBC W/PLT COUNT & AUTO [id number] 05:14:00 Test Item Value Reference Range Comments WHITE BLOOD CELL COUNT (BEAKER) (test eeoi=296) 12.3 K/ L 3.5-10.5 RED BLOOD CELL COUNT (BEAKER) (test aizw=888) 3.33 M/ L 4.63-6.08 HEMOGLOBIN (BEAKER) (test skcp=613) 9.5 GM/DL 13.7-17.5 HEMATOCRIT (BEAKER) (test ovya=504) 28.4 % 40.1-51.0 MEAN CORPUSCULAR VOLUME (BEAKER) (test kiqw=745) 85.3 fL 79.0-92.2 MEAN CORPUSCULAR HEMOGLOBIN (BEAKER) (test 28.5 pg 25.7-32.2 ankw=165) MEAN CORPUSCULAR HEMOGLOBIN CONC (BEAKER) (test 33.5 GM/DL 32.3-36.5 ovut=429) RED CELL DISTRIBUTION WIDTH (BEAKER) (test 14.6 % 11.6-14.4 gurf=337) PLATELET COUNT (BEAKER) (test xqpe=932) 744 K/CU MM 150-450 MEAN PLATELET VOLUME (BEAKER) (test nqbo=525) 8.8 fL 9.4-12.4 NUCLEATED RED BLOOD CELLS (BEAKER) (test 0 /100 WBC 0-0 vgxb=045) NEUTROPHILS RELATIVE PERCENT (BEAKER) (test 68 % ncpi=703) LYMPHOCYTES RELATIVE PERCENT (BEAKER) (test 23 % axoq=261) MONOCYTES RELATIVE PERCENT (BEAKER) (test 7 % rtwb=321) EOSINOPHILS RELATIVE PERCENT (BEAKER) (test 2 % dycv=454) BASOPHILS RELATIVE PERCENT (BEAKER) (test 0 % qykb=165) NEUTROPHILS ABSOLUTE COUNT (BEAKER) (test 8.34 K/ L 1.78-5.38 pvct=396) LYMPHOCYTES ABSOLUTE COUNT (BEAKER) (test 2.80 K/ L 1.32-3.57 tfpw=999) MONOCYTES ABSOLUTE COUNT (BEAKER) (test 0.89 K/ L 0.30-0.82 hdis=913) EOSINOPHILS ABSOLUTE COUNT (BEAKER) (test 0.18 K/ L 0.04-0.54 exmp=687) BASOPHILS ABSOLUTE COUNT (BEAKER) (test 0.03 K/ L 0.01-0.08 qbjr=472) IMMATURE GRANULOCYTES-RELATIVE PERCENT (BEAKER) 1 % 0-1 (test wbcp=7478) [id number] 01:03:00 Test Item Value Reference Range Comments PARTIAL THROMBOPLASTIN TIME (BEAKER) (test 84.1 seconds 22.5-36.0 gtxv=732) [id number] 18:16:00 Test Item Value Reference Range Comments PARTIAL THROMBOPLASTIN TIME (BEAKER) (test 107.3 seconds 22.5-36.0 adxo=369) [id number] 11:18:00 Test Item Value Reference Range Comments PARTIAL THROMBOPLASTIN TIME (BEAKER) (test 117.3 seconds 22.5-36.0 fazm=367) HEPATIC FUNCTION [id number] 07:42:00 Test Item Value Reference Range Comments TOTAL PROTEIN (BEAKER) (test gdnu=844) 7.1 gm/dL 6.0-8.3 ALBUMIN (BEAKER) (test xclw=9837) 3.5 g/dL 3.5-5.0 BILIRUBIN TOTAL (BEAKER) (test aqlo=883) 0.7 mg/dL 0.2-1.2 BILIRUBIN DIRECT (BEAKER) (test apfp=708) 0.6 mg/dL 0.1-0.5 ALKALINE PHOSPHATASE (BEAKER) (test pkpk=114) 260 U/L 40-150 AST (SGOT) (BEAKER) (test igpp=359) 303 U/L 5-34 ALT (SGPT) (BEAKER) (test ezmy=345) 110 U/L 6-55 BASIC METABOLIC [id number] 07:42:00 Test Item Value Reference Range Comments SODIUM (BEAKER) (test 130 meq/L 136-145 eujc=725) POTASSIUM (BEAKER) (test 3.8 meq/L 3.5-5.1 zuhe=082) CHLORIDE (BEAKER) (test 97 meq/L 98-107 oocm=986) CO2 (BEAKER) (test 19 meq/L 22-29 wfjl=587) BLOOD UREA NITROGEN 19 mg/dL 7-21 (BEAKER) (test xoam=541) CREATININE (BEAKER) (test 0.83 mg/dL 0.57-1.25 uyyv=205) GLUCOSE RANDOM (BEAKER) 108 mg/dL 70-105 (test jpol=315) CALCIUM (BEAKER) (test 8.8 mg/dL 8.4-10.2 ouqn=032) EGFR (BEAKER) (test 115 mL/min/1.73 sq m ESTIMATED GFR IS NOT cwth=9068) ACCURATE CREATININE CLEARANCE IN PREDICTING GLOMERULAR FILTRATION RATE. ESTIMATED GFR IS NOT APPLICABLE FOR DIALYSIS PATIENTS. PERIPHERAL BLOOD SMEAR - HOLD [id number] 07:21:00 Test Item Value Reference Range Comments PERIPHERAL SMEAR SAVE (BEAKER) (test rkvn=1983) saved [id number] 05:32:00 Test Item Value Reference Range Comments PARTIAL THROMBOPLASTIN TIME (BEAKER) (test 84.2 seconds 22.5-36.0 yzev=467) CBC W/PLT COUNT & AUTO [id number] 05:20:00 Test Item Value Reference Range Comments WHITE BLOOD CELL COUNT (BEAKER) (test etwr=605) 13.8 K/ L 3.5-10.5 RED BLOOD CELL COUNT (BEAKER) (test bfen=585) 3.28 M/ L 4.63-6.08 HEMOGLOBIN (BEAKER) (test qmgy=228) 9.5 GM/DL 13.7-17.5 HEMATOCRIT (BEAKER) (test bqgx=218) 28.3 % 40.1-51.0 MEAN CORPUSCULAR VOLUME (BEAKER) (test uojm=199) 86.3 fL 79.0-92.2 MEAN CORPUSCULAR HEMOGLOBIN (BEAKER) (test 29.0 pg 25.7-32.2 ciot=020) MEAN CORPUSCULAR HEMOGLOBIN CONC (BEAKER) (test 33.6 GM/DL 32.3-36.5 hwvx=518) RED CELL DISTRIBUTION WIDTH (BEAKER) (test 14.8 % 11.6-14.4 ebif=392) PLATELET COUNT (BEAKER) (test ggeo=190) 887 K/CU MM 150-450 MEAN PLATELET VOLUME (BEAKER) (test bigi=923) 9.3 fL 9.4-12.4 NUCLEATED RED BLOOD CELLS (BEAKER) (test 0 /100 WBC 0-0 vjsm=236) NEUTROPHILS RELATIVE PERCENT (BEAKER) (test 71 % atxm=285) LYMPHOCYTES RELATIVE PERCENT (BEAKER) (test 19 % slwx=118) MONOCYTES RELATIVE PERCENT (BEAKER) (test 8 % iken=609) EOSINOPHILS RELATIVE PERCENT (BEAKER) (test 1 % xreq=508) BASOPHILS RELATIVE PERCENT (BEAKER) (test 0 % qiak=724) NEUTROPHILS ABSOLUTE COUNT (BEAKER) (test 9.81 K/ L 1.78-5.38 evbs=253) LYMPHOCYTES ABSOLUTE COUNT (BEAKER) (test 2.57 K/ L 1.32-3.57 hely=984) MONOCYTES ABSOLUTE COUNT (BEAKER) (test 1.10 K/ L 0.30-0.82 fbhi=973) EOSINOPHILS ABSOLUTE COUNT (BEAKER) (test 0.15 K/ L 0.04-0.54 zqlo=412) BASOPHILS ABSOLUTE COUNT (BEAKER) (test 0.04 K/ L 0.01-0.08 kaow=325) IMMATURE GRANULOCYTES-RELATIVE PERCENT (BEAKER) 1 % 0-1 (test mhvk=5625) [id number] 21:00:00 Test Item Value Reference Range Comments PROTIME (BEAKER) (test inzj=925) 13.6 seconds 11.9-14.2 INR (BEAKER) (test popg=793) 1.1 <=5.9 PARTIAL THROMBOPLASTIN TIME (BEAKER) (test 54.0 seconds 22.5-36.0 iena=352) Effective 10/21/2018: PT Reference Range ChangeNew: 11.9-14.2 Previous: 11.7- 14.7RECOMMENDED COUMADIN/WARFARIN INR THERAPY RANGESSTANDARD DOSE: 2.0-3.0 Includes: PROPHYLAXIS for venous thrombosis, systemic embolization; TREATMENT for venous thrombosis and/or pulmonary embolus.HIGH RISK: Target INR is2.5-3.5 for patients wiht mechanical heart valves.BLOOD [id number] 20:01:00 Test Item Value Reference Range Comments CULTURE (BEAKER) (test enhf=6096) No growth in 5 days BLOOD [id number] 20:01:00 Test Item Value Reference Range Comments CULTURE (BEAKER) (test ptqs=7276) No growth in 5 days SPUTUM CULTURE + GRAM [id number] 13:21:00 Test Item Value Reference Range Comments CULTURE (BEAKER) (test 4+ Normal respiratory yael qwoe=3808) present GRAM STAIN RESULT (BEAKER) 2+ White blood cells seen (test oudm=8977) GRAM STAIN RESULT (BEAKER) 10-15 epithelial cells (test sboe=45246) GRAM STAIN RESULT (BEAKER) 3+ gram positive rods (test gldr=53764) GRAM STAIN RESULT (BEAKER) 3+ gram positive cocci in (test rjtw=774884) chains, pairs and clusters BASIC METABOLIC [id number] 07:38:00 Test Item Value Reference Range Comments SODIUM (BEAKER) (test 138 meq/L 136-145 vdoq=028) POTASSIUM (BEAKER) (test 3.7 meq/L 3.5-5.1 rqux=321) CHLORIDE (BEAKER) (test 106 meq/L 98-107 xlua=002) CO2 (BEAKER) (test 22 meq/L 22-29 tkir=978) BLOOD UREA NITROGEN 6 mg/dL 7-21 (BEAKER) (test xmve=727) CREATININE (BEAKER) (test 0.71 mg/dL 0.57-1.25 gdtn=173) GLUCOSE RANDOM (BEAKER) 91 mg/dL 70-105 (test leyv=925) CALCIUM (BEAKER) (test 9.0 mg/dL 8.4-10.2 ydsd=245) EGFR (BEAKER) (test 138 mL/min/1.73 sq m ESTIMATED GFR IS NOT kqzs=8985) ACCURATE CREATININE CLEARANCE IN PREDICTING GLOMERULAR FILTRATION RATE. ESTIMATED GFR IS NOT APPLICABLE FOR DIALYSIS PATIENTS. CBC W/PLT COUNT & AUTO [id number] 05:19:00 Test Item Value Reference Range Comments WHITE BLOOD CELL COUNT (BEAKER) (test dfmp=719) 11.9 K/ L 3.5-10.5 RED BLOOD CELL COUNT (BEAKER) (test gaey=381) 3.59 M/ L 4.63-6.08 HEMOGLOBIN (BEAKER) (test aqpd=392) 10.4 GM/DL 13.7-17.5 HEMATOCRIT (BEAKER) (test knkh=351) 31.4 % 40.1-51.0 MEAN CORPUSCULAR VOLUME (BEAKER) (test aqeo=167) 87.5 fL 79.0-92.2 MEAN CORPUSCULAR HEMOGLOBIN (BEAKER) (test 29.0 pg 25.7-32.2 hxhf=298) MEAN CORPUSCULAR HEMOGLOBIN CONC (BEAKER) (test 33.1 GM/DL 32.3-36.5 syqf=601) RED CELL DISTRIBUTION WIDTH (BEAKER) (test 14.7 % 11.6-14.4 gdzi=833) PLATELET COUNT (BEAKER) (test iaxq=502) 416 K/CU MM 150-450 MEAN PLATELET VOLUME (BEAKER) (test jtyu=478) 10.1 fL 9.4-12.4 NUCLEATED RED BLOOD CELLS (BEAKER) (test 0 /100 WBC 0-0 dztd=818) NEUTROPHILS RELATIVE PERCENT (BEAKER) (test 67 % aavz=416) LYMPHOCYTES RELATIVE PERCENT (BEAKER) (test 20 % qbqw=935) MONOCYTES RELATIVE PERCENT (BEAKER) (test 11 % ujup=440) EOSINOPHILS RELATIVE PERCENT (BEAKER) (test 2 % iqjv=839) BASOPHILS RELATIVE PERCENT (BEAKER) (test 0 % bupt=849) NEUTROPHILS ABSOLUTE COUNT (BEAKER) (test 7.97 K/ L 1.78-5.38 bmds=781) LYMPHOCYTES ABSOLUTE COUNT (BEAKER) (test 2.41 K/ L 1.32-3.57 qrsu=706) MONOCYTES ABSOLUTE COUNT (BEAKER) (test 1.26 K/ L 0.30-0.82 sqdk=646) EOSINOPHILS ABSOLUTE COUNT (BEAKER) (test 0.20 K/ L 0.04-0.54 bcpi=861) BASOPHILS ABSOLUTE COUNT (BEAKER) (test 0.02 K/ L 0.01-0.08 agrf=268) IMMATURE GRANULOCYTES-RELATIVE PERCENT (BEAKER) 1 % 0-1 (test bbmt=6389) URINALYSIS W/ REFLEX URINE [id number] 21:32:00 Test Item Value Reference Range Comments COLOR (BEAKER) (test zait=316) Yellow CLARITY (BEAKER) (test zvvz=429) Clear SPECIFIC GRAVITY UA (BEAKER) (test aeov=614) 1.009 1.001-1.035 PH UA (BEAKER) (test rmov=234) 7.0 5.0-8.0 PROTEIN UA (BEAKER) (test avzi=721) Negative Negative GLUCOSE UA (BEAKER) (test dtel=043) Negative Negative KETONES UA (BEAKER) (test bdgh=667) Negative Negative BILIRUBIN UA (BEAKER) (test ztau=421) Negative Negative BLOOD UA (BEAKER) (test fevk=149) Negative Negative NITRITE UA (BEAKER) (test qgmu=317) Negative Negative LEUKOCYTE ESTERASE UA (BEAKER) (test pwtx=128) Large Negative UROBILINOGEN UA (BEAKER) (test ytja=846) 8.0 mg/dL 0.2-1.0 RBC UA (BEAKER) (test cceb=672) 1 /HPF WBC UA (BEAKER) (test enhw=083) 18 /HPF SQUAMOUS EPITHELIAL (BEAKER) (test bfxm=416) < /HPF SOURCE(BEAKER) (test ffno=8287) RESPIRATORY PANEL [id number] 20:04:00 Test Item Value Reference Range Comments HUMAN METAPNEUMOVIRUS (BEAKER) (test Not detected Not detected, Equivocal fivg=2940) RHINOVIRUS (BEAKER) (test rted=3037) Not detected Not detected, Equivocal INFLUENZA A (BEAKER) (test algy=1427) Not detected Not detected, Equivocal INFLUENZA A (NO SUBTYPE) (test Not detected, Equivocal wmub=7506) INFLUENZA A SUBTYPE H1 (BEAKER) (test Not detected, Equivocal rhsn=3132) INFLUENZA A SUBTYPE H3 (BEAKER) (test Not detected, Equivocal lotv=0543) INFLUENZA A SUBTYPE H1-2009 (BEAKER) Not detected, Equivocal (test zoyj=2247) INFLUENZA B (BEAKER) (test rzjj=5124) Not detected Not detected, Equivocal RESPIRATORY SYNCYTIAL VIRUS (BEAKER) Not detected Not detected, Equivocal (test etem=0261) PARAINFLUENZA VIRUS 1 (BEAKER) (test Not detected Not detected, Equivocal yfqx=1820) PARAINFLUENZA VIRUS 2 (BEAKER) (test Not detected Not detected, Equivocal vttx=4840) PARAINFLUENZA VIRUS 3 (BEAKER) (test Not detected Not detected, Equivocal vuer=8634) PARAINFLUENZA VIRUS 4 (BEAKER) (test Not detected Not detected, Equivocal vnwi=9087) ADENOVIRUS (BEAKER) (test vxtn=4059) Not detected Not detected, Equivocal CORONAVIRUS 229E (BEAKER) (test Not detected Not detected, Equivocal ayvt=5096) CORONAVIRUS HKU1 (BEAKER) (test Not detected Not detected, Equivocal hjtd=1105) CORONAVIRUS NL63 (BEAKER) (test Not detected Not detected, Equivocal gvwx=8701) CORONAVIRUS OC43 (BEAKER) (test Not detected Not detected, Equivocal wrqn=3447) BORDETELLA PERTUSSIS (BEAKER) (test Not detected Not detected, Equivocal qpht=6263) CHLAMYDOPHILA PNEUMONIAE (BEAKER) (test Not detected Not detected, Equivocal dwpp=7556) MYCOPLASMA PNEUMONIAE (BEAKER) (test Not detected Not detected, Equivocal fkck=7968) Other viruses and bacteria not targeted by this PCR panel cannot be excluded; therefore clinical correlation and follow up of serology, culture results, and other molecular studies is required. The results are not intended to be used as the sole means for clinical diagnosis or patient management decisions. This sample was tested at the [facility] using the [employer] Respiratory Panel. It is FDA cleared and has been verified and approved by the [facility] for clinical use on nasopharyngeal swab specimens.The performance of the FilmArrayRP has not been established in individuals who received influenza vaccine. Recent administration ofa nasal influenza vaccine may cause false positive results for Influenza A and/orInfrumaenza B.RAD, CHEST, 1 VIEW, NON [id number] 13:42: 00Reason for exam:->feverShould this be performed at the bedside?-> YesFINAL REPORT TECHNIQUE: Frontal chest radiograph dated 12/10/2018. CLINICAL HISTORY: Fever COMPARISON STUDY: Chest radiograph dated 09/25/2017 IMPRESSION:Lungs are clear. No pleural effusion or pneumothorax. Cardiomediastinal silhouette is normal in size. No pulmonary edema. No fracture. Signed: Shantanu Ryan MDReport Verified Date/Time: 12/10/2018 13:42:21 Reading Location: [facility] ER Reading Room BASIC METABOLIC [id number] 07:05:00 Test Item Value Reference Range Comments SODIUM (BEAKER) (test 135 meq/L 136-145 txld=558) POTASSIUM (BEAKER) (test 3.7 meq/L 3.5-5.1 lnni=113) CHLORIDE (BEAKER) (test 105 meq/L 98-107 ndjn=667) CO2 (BEAKER) (test 23 meq/L 22-29 juhz=739) BLOOD UREA NITROGEN 6 mg/dL 7-21 (BEAKER) (test xhgf=637) CREATININE (BEAKER) (test 0.78 mg/dL 0.57-1.25 aynf=100) GLUCOSE RANDOM (BEAKER) 97 mg/dL 70-105 (test kkdc=383) CALCIUM (BEAKER) (test 8.7 mg/dL 8.4-10.2 pold=129) EGFR (BEAKER) (test 124 mL/min/1.73 sq m ESTIMATED GFR IS NOT lszs=2434) ACCURATE CREATININE CLEARANCE IN PREDICTING GLOMERULAR FILTRATION RATE. ESTIMATED GFR IS NOT APPLICABLE FOR DIALYSIS PATIENTS. CBC W/PLT COUNT & AUTO [id number] 05:42:00 Test Item Value Reference Range Comments WHITE BLOOD CELL COUNT (BEAKER) (test mpbd=497) 13.0 K/ L 3.5-10.5 RED BLOOD CELL COUNT (BEAKER) (test zgns=422) 3.71 M/ L 4.63-6.08 HEMOGLOBIN (BEAKER) (test jmau=020) 10.9 GM/DL 13.7-17.5 HEMATOCRIT (BEAKER) (test gtle=387) 32.1 % 40.1-51.0 MEAN CORPUSCULAR VOLUME (BEAKER) (test zatk=911) 86.5 fL 79.0-92.2 MEAN CORPUSCULAR HEMOGLOBIN (BEAKER) (test 29.4 pg 25.7-32.2 olfm=493) MEAN CORPUSCULAR HEMOGLOBIN CONC (BEAKER) (test 34.0 GM/DL 32.3-36.5 jgzl=063) RED CELL DISTRIBUTION WIDTH (BEAKER) (test 14.4 % 11.6-14.4 tjjx=837) PLATELET COUNT (BEAKER) (test fzej=416) 407 K/CU MM 150-450 MEAN PLATELET VOLUME (BEAKER) (test edlw=972) 9.8 fL 9.4-12.4 NUCLEATED RED BLOOD CELLS (BEAKER) (test 0 /100 WBC 0-0 jokk=507) NEUTROPHILS RELATIVE PERCENT (BEAKER) (test 72 % wzkv=728) LYMPHOCYTES RELATIVE PERCENT (BEAKER) (test 17 % grsq=095) MONOCYTES RELATIVE PERCENT (BEAKER) (test 9 % rtgj=676) EOSINOPHILS RELATIVE PERCENT (BEAKER) (test 1 % ecfz=116) BASOPHILS RELATIVE PERCENT (BEAKER) (test 0 % vmzh=186) NEUTROPHILS ABSOLUTE COUNT (BEAKER) (test 9.35 K/ L 1.78-5.38 xyac=363) LYMPHOCYTES ABSOLUTE COUNT (BEAKER) (test 2.14 K/ L 1.32-3.57 dhbj=445) MONOCYTES ABSOLUTE COUNT (BEAKER) (test 1.22 K/ L 0.30-0.82 vxzm=065) EOSINOPHILS ABSOLUTE COUNT (BEAKER) (test 0.15 K/ L 0.04-0.54 odwr=706) BASOPHILS ABSOLUTE COUNT (BEAKER) (test 0.04 K/ L 0.01-0.08 aozp=352) IMMATURE GRANULOCYTES-RELATIVE PERCENT (BEAKER) 1 % 0-1 (test gbvz=5340) BASIC METABOLIC [id number] 07:42:00 Test Item Value Reference Range Comments SODIUM (BEAKER) (test 135 meq/L 136-145 epkw=496) POTASSIUM (BEAKER) (test 3.9 meq/L 3.5-5.1 xsus=468) CHLORIDE (BEAKER) (test 106 meq/L 98-107 bynk=647) CO2 (BEAKER) (test 21 meq/L 22-29 biiw=170) BLOOD UREA NITROGEN 7 mg/dL 7-21 (BEAKER) (test jsrn=521) CREATININE (BEAKER) (test 0.79 mg/dL 0.57-1.25 rbtt=295) GLUCOSE RANDOM (BEAKER) 87 mg/dL 70-105 (test ubht=904) CALCIUM (BEAKER) (test 8.8 mg/dL 8.4-10.2 qssn=114) EGFR (BEAKER) (test 122 mL/min/1.73 sq m ESTIMATED GFR IS NOT kbzf=6978) ACCURATE CREATININE CLEARANCE IN PREDICTING GLOMERULAR FILTRATION RATE. ESTIMATED GFR IS NOT APPLICABLE FOR DIALYSIS PATIENTS. CBC W/PLT COUNT & AUTO [id number] 06:35:00 Test Item Value Reference Range Comments WHITE BLOOD CELL COUNT (BEAKER) (test lhjx=272) 11.7 K/ L 3.5-10.5 RED BLOOD CELL COUNT (BEAKER) (test sjou=725) 3.73 M/ L 4.63-6.08 HEMOGLOBIN (BEAKER) (test bltv=169) 10.9 GM/DL 13.7-17.5 HEMATOCRIT (BEAKER) (test vrkp=107) 32.5 % 40.1-51.0 MEAN CORPUSCULAR VOLUME (BEAKER) (test jixv=824) 87.1 fL 79.0-92.2 MEAN CORPUSCULAR HEMOGLOBIN (BEAKER) (test 29.2 pg 25.7-32.2 racq=592) MEAN CORPUSCULAR HEMOGLOBIN CONC (BEAKER) (test 33.5 GM/DL 32.3-36.5 ohxw=085) RED CELL DISTRIBUTION WIDTH (BEAKER) (test 14.3 % 11.6-14.4 scgx=808) PLATELET COUNT (BEAKER) (test vulf=899) 427 K/CU MM 150-450 MEAN PLATELET VOLUME (BEAKER) (test clqu=067) 10.1 fL 9.4-12.4 NUCLEATED RED BLOOD CELLS (BEAKER) (test 0 /100 WBC 0-0 bbdj=501) NEUTROPHILS RELATIVE PERCENT (BEAKER) (test 70 % uvds=565) LYMPHOCYTES RELATIVE PERCENT (BEAKER) (test 19 % ymmc=062) MONOCYTES RELATIVE PERCENT (BEAKER) (test 9 % pbxi=227) EOSINOPHILS RELATIVE PERCENT (BEAKER) (test 2 % lbws=950) BASOPHILS RELATIVE PERCENT (BEAKER) (test 0 % irwx=059) NEUTROPHILS ABSOLUTE COUNT (BEAKER) (test 8.19 K/ L 1.78-5.38 xnfp=488) LYMPHOCYTES ABSOLUTE COUNT (BEAKER) (test 2.25 K/ L 1.32-3.57 qskh=223) MONOCYTES ABSOLUTE COUNT (BEAKER) (test 1.00 K/ L 0.30-0.82 flnq=666) EOSINOPHILS ABSOLUTE COUNT (BEAKER) (test 0.19 K/ L 0.04-0.54 yyfn=571) BASOPHILS ABSOLUTE COUNT (BEAKER) (test 0.03 K/ L 0.01-0.08 kpsi=408) IMMATURE GRANULOCYTES-RELATIVE PERCENT (BEAKER) 1 % 0-1 (test ryor=6704) HEPATIC FUNCTION [id number] 06:55:00 Test Item Value Reference Range Comments TOTAL PROTEIN (BEAKER) (test asws=019) 6.7 gm/dL 6.0-8.3 ALBUMIN (BEAKER) (test sjke=9165) 3.6 g/dL 3.5-5.0 BILIRUBIN TOTAL (BEAKER) (test ffkj=619) 0.7 mg/dL 0.2-1.2 BILIRUBIN DIRECT (BEAKER) (test synr=391) 0.6 mg/dL 0.1-0.5 ALKALINE PHOSPHATASE (BEAKER) (test rldm=266) 267 U/L 40-150 AST (SGOT) (BEAKER) (test nzun=044) 595 U/L 5-34 ALT (SGPT) (BEAKER) (test ezdo=834) 658 U/L 6-55 BASIC METABOLIC [id number] 06:55:00 Test Item Value Reference Range Comments SODIUM (BEAKER) (test 136 meq/L 136-145 yhez=927) POTASSIUM (BEAKER) (test 4.0 meq/L 3.5-5.1 ievz=119) CHLORIDE (BEAKER) (test 107 meq/L 98-107 qvrr=856) CO2 (BEAKER) (test 21 meq/L 22-29 gfan=168) BLOOD UREA NITROGEN 8 mg/dL 7-21 (BEAKER) (test laea=437) CREATININE (BEAKER) (test 0.75 mg/dL 0.57-1.25 sfpq=143) GLUCOSE RANDOM (BEAKER) 95 mg/dL 70-105 (test euig=098) CALCIUM (BEAKER) (test 9.1 mg/dL 8.4-10.2 yvvu=740) EGFR (BEAKER) (test 130 mL/min/1.73 sq m ESTIMATED GFR IS NOT talj=5728) ACCURATE CREATININE CLEARANCE IN PREDICTING GLOMERULAR FILTRATION RATE. ESTIMATED GFR IS NOT APPLICABLE FOR DIALYSIS PATIENTS. [id number] 06:07:00 Test Item Value Reference Range Comments PROTIME (BEAKER) (test imoh=651) 13.2 seconds 11.9-14.2 INR (BEAKER) (test etds=363) 1.1 <=5.9 PARTIAL THROMBOPLASTIN TIME (BEAKER) (test 39.2 seconds 22.5-36.0 sgyz=553) Effective 10/21/2018: PT Reference Range ChangeNew: 11.9-14.2 Previous: 11.7- 14.7RECOMMENDED COUMADIN/WARFARIN INR THERAPY RANGESSTANDARD DOSE: 2.0-3.0 Includes: PROPHYLAXIS for venous thrombosis, systemic embolization; TREATMENT for venous thrombosis and/or pulmonary embolus.HIGH RISK: Target INR is2.5-3.5 for patients wiht mechanical heart valves.CBC W/PLT COUNT & AUTO [id number] 05:58:00 Test Item Value Reference Range Comments WHITE BLOOD CELL COUNT (BEAKER) (test mcol=077) 9.6 K/ L 3.5-10.5 RED BLOOD CELL COUNT (BEAKER) (test ctef=503) 3.86 M/ L 4.63-6.08 HEMOGLOBIN (BEAKER) (test chwr=695) 11.1 GM/DL 13.7-17.5 HEMATOCRIT (BEAKER) (test tfpe=401) 33.3 % 40.1-51.0 MEAN CORPUSCULAR VOLUME (BEAKER) (test oswh=419) 86.3 fL 79.0-92.2 MEAN CORPUSCULAR HEMOGLOBIN (BEAKER) (test 28.8 pg 25.7-32.2 fbuy=596) MEAN CORPUSCULAR HEMOGLOBIN CONC (BEAKER) (test 33.3 GM/DL 32.3-36.5 xhel=889) RED CELL DISTRIBUTION WIDTH (BEAKER) (test 14.2 % 11.6-14.4 zidx=434) PLATELET COUNT (BEAKER) (test qvto=364) 414 K/CU MM 150-450 MEAN PLATELET VOLUME (BEAKER) (test tuhx=184) 9.8 fL 9.4-12.4 NUCLEATED RED BLOOD CELLS (BEAKER) (test 0 /100 WBC 0-0 nvkm=402) NEUTROPHILS RELATIVE PERCENT (BEAKER) (test 69 % sblg=718) LYMPHOCYTES RELATIVE PERCENT (BEAKER) (test 21 % cagb=946) MONOCYTES RELATIVE PERCENT (BEAKER) (test 7 % mcip=798) EOSINOPHILS RELATIVE PERCENT (BEAKER) (test 2 % incq=091) BASOPHILS RELATIVE PERCENT (BEAKER) (test 0 % qcch=976) NEUTROPHILS ABSOLUTE COUNT (BEAKER) (test 6.66 K/ L 1.78-5.38 uhme=045) LYMPHOCYTES ABSOLUTE COUNT (BEAKER) (test 2.00 K/ L 1.32-3.57 wyxj=672) MONOCYTES ABSOLUTE COUNT (BEAKER) (test 0.71 K/ L 0.30-0.82 rbwz=792) EOSINOPHILS ABSOLUTE COUNT (BEAKER) (test 0.20 K/ L 0.04-0.54 oruu=249) BASOPHILS ABSOLUTE COUNT (BEAKER) (test 0.03 K/ L 0.01-0.08 cjjd=279) IMMATURE GRANULOCYTES-RELATIVE PERCENT (BEAKER) 0 % 0-1 (test pyak=3223) CT, CHEST, WITH [id number] 04:21:00FINAL REPORT EXAMINATION: Chest CT with IV [...] Verified Date/Time: 12/08/2018 04:21:30 Reading Location : [address] Reading Room HEPATITIS C PCR, [id number] 21:55: 00 Test Item Value Reference Range Comments HCV RESULT COMPONENT (BEAKER) HCV RNA not detected HCV RNA not detected (test oqac=2621) This test uses a Real-Time Polymerase Chain Reaction (RT-PCR) methodology and was performed using DAVID Ampliprep/DAVID TaqMan HCV test kit version 2.0 ( [employer]).Reportable range for this assay is 15 - 100,000, 000 IU per mL (1.18 - 8.00 Log IU/mL).HEPATIC FUNCTION [id number] 05:54:00 Test Item Value Reference Range Comments TOTAL PROTEIN (BEAKER) (test xffv=358) 6.6 gm/dL 6.0-8.3 ALBUMIN (BEAKER) (test jhkt=5434) 3.5 g/dL 3.5-5.0 BILIRUBIN TOTAL (BEAKER) (test omqp=840) 0.3 mg/dL 0.2-1.2 BILIRUBIN DIRECT (BEAKER) (test eupn=903) 0.2 mg/dL 0.1-0.5 ALKALINE PHOSPHATASE (BEAKER) (test iltl=080) 174 U/L 40-150 AST (SGOT) (BEAKER) (test ulwn=213) 346 U/L 5-34 ALT (SGPT) (BEAKER) (test ghah=042) 326 U/L 6-55 BASIC METABOLIC [id number] 05:54:00 Test Item Value Reference Range Comments SODIUM (BEAKER) (test 136 meq/L 136-145 sgkl=288) POTASSIUM (BEAKER) (test 4.4 meq/L 3.5-5.1 vkrn=063) CHLORIDE (BEAKER) (test 108 meq/L 98-107 fpur=937) CO2 (BEAKER) (test 21 meq/L 22-29 trcu=562) BLOOD UREA NITROGEN 11 mg/dL 7-21 (BEAKER) (test dmpl=219) CREATININE (BEAKER) (test 0.76 mg/dL 0.57-1.25 aiej=472) GLUCOSE RANDOM (BEAKER) 94 mg/dL 70-105 (test ovgs=912) CALCIUM (BEAKER) (test 8.8 mg/dL 8.4-10.2 tclm=489) EGFR (BEAKER) (test 128 mL/min/1.73 sq m ESTIMATED GFR IS NOT axbe=6446) ACCURATE CREATININE CLEARANCE IN PREDICTING GLOMERULAR FILTRATION RATE. ESTIMATED GFR IS NOT APPLICABLE FOR DIALYSIS PATIENTS. [id number] 05:33:00 Test Item Value Reference Range Comments PROTIME (BEAKER) (test truf=311) 14.7 seconds 11.9-14.2 INR (BEAKER) (test hxqi=370) 1.2 <=5.9 PARTIAL THROMBOPLASTIN TIME (BEAKER) (test 38.1 seconds 22.5-36.0 srmk=885) Effective 10/21/2018: PT Reference Range ChangeNew: 11.9-14.2 Previous: 11.7- 14.7RECOMMENDED COUMADIN/WARFARIN INR THERAPY RANGESSTANDARD DOSE: 2.0-3.0 Includes: PROPHYLAXIS for venous thrombosis, systemic embolization; TREATMENT for venous thrombosis and/or pulmonary embolus.HIGH RISK: Target INR is2.5-3.5 for patients wiht mechanical heart valves.CBC W/PLT COUNT & AUTO [id number] 05:14:00 Test Item Value Reference Range Comments WHITE BLOOD CELL COUNT (BEAKER) (test yruv=025) 7.8 K/ L 3.5-10.5 RED BLOOD CELL COUNT (BEAKER) (test ckzn=474) 3.82 M/ L 4.63-6.08 HEMOGLOBIN (BEAKER) (test chpg=962) 11.1 GM/DL 13.7-17.5 HEMATOCRIT (BEAKER) (test llrs=977) 33.6 % 40.1-51.0 MEAN CORPUSCULAR VOLUME (BEAKER) (test spcz=245) 88.0 fL 79.0-92.2 MEAN CORPUSCULAR HEMOGLOBIN (BEAKER) (test 29.1 pg 25.7-32.2 lrgr=700) MEAN CORPUSCULAR HEMOGLOBIN CONC (BEAKER) (test 33.0 GM/DL 32.3-36.5 dpfd=933) RED CELL DISTRIBUTION WIDTH (BEAKER) (test 13.7 % 11.6-14.4 cell=074) PLATELET COUNT (BEAKER) (test tfaq=649) 399 K/CU MM 150-450 MEAN PLATELET VOLUME (BEAKER) (test mfoq=892) 9.4 fL 9.4-12.4 NUCLEATED RED BLOOD CELLS (BEAKER) (test 0 /100 WBC 0-0 skea=382) NEUTROPHILS RELATIVE PERCENT (BEAKER) (test 62 % nzxz=309) LYMPHOCYTES RELATIVE PERCENT (BEAKER) (test 28 % jirt=124) MONOCYTES RELATIVE PERCENT (BEAKER) (test 7 % thxi=066) EOSINOPHILS RELATIVE PERCENT (BEAKER) (test 3 % mevk=526) BASOPHILS RELATIVE PERCENT (BEAKER) (test 0 % qnqw=815) NEUTROPHILS ABSOLUTE COUNT (BEAKER) (test 4.87 K/ L 1.78-5.38 oolf=120) LYMPHOCYTES ABSOLUTE COUNT (BEAKER) (test 2.17 K/ L 1.32-3.57 ojvk=040) MONOCYTES ABSOLUTE COUNT (BEAKER) (test 0.57 K/ L 0.30-0.82 lzmw=447) EOSINOPHILS ABSOLUTE COUNT (BEAKER) (test 0.20 K/ L 0.04-0.54 hzxj=641) BASOPHILS ABSOLUTE COUNT (BEAKER) (test 0.02 K/ L 0.01-0.08 oivf=367) IMMATURE GRANULOCYTES-RELATIVE PERCENT (BEAKER) 0 % 0-1 (test vwmo=0610) MR, ABDOMEN, [id number] 10:49:00FINAL REPORT MRI of the abdomen dated [...] carcinoma.2. Portal vein thrombosis. Signed: Michelle Garner Verified Date/Time: 12/06/2018 10:49:29 Reading Location: [address] Body Reading Room CARCINOEMBRYONIC ANTIGEN (CEA)2018-12-06 07:14:00 Test Item Value Reference Range Comments CARCINOEMBRYONIC ANTIGEN (BEAKER) (test nzwu=629) 0.7 ng/mL 0.0-5.0 HEPATIC FUNCTION [id number] 07:10:00 Test Item Value Reference Range Comments TOTAL PROTEIN (BEAKER) (test euxv=658) 6.6 gm/dL 6.0-8.3 ALBUMIN (BEAKER) (test qzpf=6931) 3.5 g/dL 3.5-5.0 BILIRUBIN TOTAL (BEAKER) (test znmi=892) 0.3 mg/dL 0.2-1.2 BILIRUBIN DIRECT (BEAKER) (test elhu=841) 0.1 mg/dL 0.1-0.5 ALKALINE PHOSPHATASE (BEAKER) (test ptkq=030) 158 U/L 40-150 AST (SGOT) (BEAKER) (test qyjy=185) 249 U/L 5-34 ALT (SGPT) (BEAKER) (test mffl=536) 151 U/L 6-55 BASIC METABOLIC [id number] 07:10:00 Test Item Value Reference Range Comments SODIUM (BEAKER) (test 136 meq/L 136-145 pwxq=709) POTASSIUM (BEAKER) (test 4.0 meq/L 3.5-5.1 ikja=015) CHLORIDE (BEAKER) (test 107 meq/L 98-107 zqji=232) CO2 (BEAKER) (test 22 meq/L 22-29 tdvb=521) BLOOD UREA NITROGEN 10 mg/dL 7-21 (BEAKER) (test ojdc=940) CREATININE (BEAKER) (test 0.74 mg/dL 0.57-1.25 waah=067) GLUCOSE RANDOM (BEAKER) 86 mg/dL 70-105 (test rbhn=743) CALCIUM (BEAKER) (test 8.8 mg/dL 8.4-10.2 ijiy=817) EGFR (BEAKER) (test 132 mL/min/1.73 sq m ESTIMATED GFR IS NOT puln=7500) ACCURATE CREATININE CLEARANCE IN PREDICTING GLOMERULAR FILTRATION RATE. ESTIMATED GFR IS NOT APPLICABLE FOR DIALYSIS PATIENTS. [id number] 06:27:00 Test Item Value Reference Range Comments PROTIME (BEAKER) (test lagd=022) 14.1 seconds 11.9-14.2 INR (BEAKER) (test xttl=596) 1.2 <=5.9 PARTIAL THROMBOPLASTIN TIME (BEAKER) (test 41.1 seconds 22.5-36.0 pald=778) Effective 10/21/2018: PT Reference Range ChangeNew: 11.9-14.2 Previous: 11.7- 14.7RECOMMENDED COUMADIN/WARFARIN INR THERAPY RANGESSTANDARD DOSE: 2.0-3.0 Includes: PROPHYLAXIS for venous thrombosis, systemic embolization; TREATMENT for venous thrombosis and/or pulmonary embolus.HIGH RISK: Target INR is2.5-3.5 for patients wiht mechanical heart valves.CBC W/PLT COUNT & AUTO [id number] 06:18:00 Test Item Value Reference Range Comments WHITE BLOOD CELL COUNT (BEAKER) (test srlk=584) 7.9 K/ L 3.5-10.5 RED BLOOD CELL COUNT (BEAKER) (test hcfa=883) 3.79 M/ L 4.63-6.08 HEMOGLOBIN (BEAKER) (test bqnf=693) 11.0 GM/DL 13.7-17.5 HEMATOCRIT (BEAKER) (test ithj=211) 33.1 % 40.1-51.0 MEAN CORPUSCULAR VOLUME (BEAKER) (test ffqg=404) 87.3 fL 79.0-92.2 MEAN CORPUSCULAR HEMOGLOBIN (BEAKER) (test 29.0 pg 25.7-32.2 xqcz=654) MEAN CORPUSCULAR HEMOGLOBIN CONC (BEAKER) (test 33.2 GM/DL 32.3-36.5 pukp=706) RED CELL DISTRIBUTION WIDTH (BEAKER) (test 13.7 % 11.6-14.4 mylh=027) PLATELET COUNT (BEAKER) (test qsxm=268) 422 K/CU MM 150-450 MEAN PLATELET VOLUME (BEAKER) (test wifz=665) 9.4 fL 9.4-12.4 NUCLEATED RED BLOOD CELLS (BEAKER) (test 0 /100 WBC 0-0 epyc=523) NEUTROPHILS RELATIVE PERCENT (BEAKER) (test 58 % pcsd=153) LYMPHOCYTES RELATIVE PERCENT (BEAKER) (test 33 % djxo=805) MONOCYTES RELATIVE PERCENT (BEAKER) (test 7 % knkb=586) EOSINOPHILS RELATIVE PERCENT (BEAKER) (test 2 % qylb=264) BASOPHILS RELATIVE PERCENT (BEAKER) (test 0 % amku=643) NEUTROPHILS ABSOLUTE COUNT (BEAKER) (test 4.55 K/ L 1.78-5.38 jllj=418) LYMPHOCYTES ABSOLUTE COUNT (BEAKER) (test 2.59 K/ L 1.32-3.57 xlzu=809) MONOCYTES ABSOLUTE COUNT (BEAKER) (test 0.55 K/ L 0.30-0.82 naoy=931) EOSINOPHILS ABSOLUTE COUNT (BEAKER) (test 0.15 K/ L 0.04-0.54 zgtx=233) BASOPHILS ABSOLUTE COUNT (BEAKER) (test 0.02 K/ L 0.01-0.08 fhpl=821) IMMATURE GRANULOCYTES-RELATIVE PERCENT (BEAKER) 0 % 0-1 (test behp=1767) HEPATITIS PANEL, [id number] 07:04:00 Test Item Value Reference Range Comments HEPATITIS A IGM ANTIBODY (BEAKER) (test Nonreactive Nonreactive jsbt=861) HEPATITIS B CORE IGM ANTIBODY (BEAKER) (test Nonreactive Nonreactive qjvd=525) HEPATITIS C ANTIBODY (BEAKER) (test kgqm=350) Reactive Nonreactive HEPATITIS B SURFACE ANTIGEN (2) (BEAKER) (test Nonreactive Nonreactive wpgs=0622) [id number] 06:52:00 Test Item Value Reference Range Comments MAGNESIUM (BEAKER) (test evqp=721) 2.1 mg/dL 1.6-2.6 COMPREHENSIVE METABOLIC [id number] 06:52:00 Test Item Value Reference Range Comments TOTAL PROTEIN (BEAKER) 7.2 gm/dL 6.0-8.3 (test rkck=913) ALBUMIN (BEAKER) (test 3.8 g/dL 3.5-5.0 afee=3509) ALKALINE PHOSPHATASE 148 U/L 40-150 (BEAKER) (test ibvh=300) BILIRUBIN TOTAL (BEAKER) 0.3 mg/dL 0.2-1.2 (test siht=550) SODIUM (BEAKER) (test 131 meq/L 136-145 cjgt=388) POTASSIUM (BEAKER) (test 4.0 meq/L 3.5-5.1 snpx=134) CHLORIDE (BEAKER) (test 100 meq/L 98-107 qxlt=388) CO2 (BEAKER) (test 24 meq/L 22-29 xndm=048) BLOOD UREA NITROGEN 12 mg/dL 7-21 (BEAKER) (test opii=427) CREATININE (BEAKER) (test 0.91 mg/dL 0.57-1.25 uncs=291) GLUCOSE RANDOM (BEAKER) 98 mg/dL 70-105 (test vtzq=416) CALCIUM (BEAKER) (test 8.9 mg/dL 8.4-10.2 ejmq=172) AST (SGOT) (BEAKER) (test 135 U/L 5-34 lxax=520) ALT (SGPT) (BEAKER) (test 81 U/L 6-55 dlik=921) EGFR (BEAKER) (test 104 mL/min/1.73 sq ESTIMATED GFR IS NOT dsfs=3728) m ACCURATE CREATININE CLEARANCE IN PREDICTING GLOMERULAR FILTRATION RATE. ESTIMATED GFR IS NOT APPLICABLE FOR DIALYSIS PATIENTS. [id number] 05:58:00 Test Item Value Reference Range Comments PROTIME (BEAKER) (test wgzk=755) 13.9 seconds 11.9-14.2 INR (BEAKER) (test lfte=112) 1.1 <=5.9 PARTIAL THROMBOPLASTIN TIME (BEAKER) (test 37.6 seconds 22.5-36.0 auxt=603) Effective 10/21/2018: PT Reference Range ChangeNew: 11.9-14.2 Previous: 11.7- 14.7RECOMMENDED COUMADIN/WARFARIN INR THERAPY RANGESSTANDARD DOSE: 2.0-3.0 Includes: PROPHYLAXIS for venous thrombosis, systemic embolization; TREATMENT for venous thrombosis and/or pulmonary embolus.HIGH RISK: Target INR is2.5-3.5 for patients wiht mechanical heart valves.CBC W/PLT COUNT & AUTO [id number] 05:35:00 Test Item Value Reference Range Comments WHITE BLOOD CELL COUNT (BEAKER) (test ihdl=556) 9.1 K/ L 3.5-10.5 RED BLOOD CELL COUNT (BEAKER) (test sklq=696) 4.18 M/ L 4.63-6.08 HEMOGLOBIN (BEAKER) (test jdgw=513) 12.0 GM/DL 13.7-17.5 HEMATOCRIT (BEAKER) (test ohky=070) 36.0 % 40.1-51.0 MEAN CORPUSCULAR VOLUME (BEAKER) (test tsvs=132) 86.1 fL 79.0-92.2 MEAN CORPUSCULAR HEMOGLOBIN (BEAKER) (test 28.7 pg 25.7-32.2 ibky=460) MEAN CORPUSCULAR HEMOGLOBIN CONC (BEAKER) (test 33.3 GM/DL 32.3-36.5 gnro=097) RED CELL DISTRIBUTION WIDTH (BEAKER) (test 13.4 % 11.6-14.4 juug=178) PLATELET COUNT (BEAKER) (test cmng=636) 477 K/CU MM 150-450 MEAN PLATELET VOLUME (BEAKER) (test rqvz=590) 9.2 fL 9.4-12.4 NUCLEATED RED BLOOD CELLS (BEAKER) (test 0 /100 WBC 0-0 ylqc=567) NEUTROPHILS RELATIVE PERCENT (BEAKER) (test 58 % lkyx=155) LYMPHOCYTES RELATIVE PERCENT (BEAKER) (test 33 % awlq=390) MONOCYTES RELATIVE PERCENT (BEAKER) (test 7 % peyl=059) EOSINOPHILS RELATIVE PERCENT (BEAKER) (test 2 % jrzz=975) BASOPHILS RELATIVE PERCENT (BEAKER) (test 0 % lxqb=185) NEUTROPHILS ABSOLUTE COUNT (BEAKER) (test 5.24 K/ L 1.78-5.38 mwoe=461) LYMPHOCYTES ABSOLUTE COUNT (BEAKER) (test 2.94 K/ L 1.32-3.57 toqi=152) MONOCYTES ABSOLUTE COUNT (BEAKER) (test 0.66 K/ L 0.30-0.82 ttde=092) EOSINOPHILS ABSOLUTE COUNT (BEAKER) (test 0.16 K/ L 0.04-0.54 cmlh=145) BASOPHILS ABSOLUTE COUNT (BEAKER) (test 0.03 K/ L 0.01-0.08 sepr=634) IMMATURE GRANULOCYTES-RELATIVE PERCENT (BEAKER) 0 % 0-1 (test gzep=3356) ALPHA FETOPROTEIN (AFP), TUMOR [id number] 02:51:00 Test Item Value Reference Range Comments ALPHA-FETOPROTEIN (BEAKER) (test cawk=2430) > ng/mL <10.0 BLOOD [id number] 18:00:00 Test Item Value Reference Range Comments CULTURE (BEAKER) (test zyjb=4365) No growth in 5 days BLOOD [id number] 18:00:00 Test Item Value Reference Range Comments CULTURE (BEAKER) (test qiam=3885) No growth in 5 days BLOOD [id number] 00:00:00 Test Item Value Reference Range Comments CULTURE (BEAKER) (test aamo=8105) No growth in 5 days BASIC METABOLIC [id number] 05:57:00 Test Item Value Reference Range Comments SODIUM (BEAKER) (test 139 meq/L 136-145 svpx=496) POTASSIUM (BEAKER) (test 3.5 meq/L 3.5-5.1 ydlp=472) CHLORIDE (BEAKER) (test 105 meq/L 98-107 aotw=614) CO2 (BEAKER) (test 25 meq/L 22-29 plwj=318) BLOOD UREA NITROGEN 8 mg/dL 7-21 (BEAKER) (test bawe=888) CREATININE (BEAKER) (test 0.78 mg/dL 0.57-1.25 wrcq=219) GLUCOSE RANDOM (BEAKER) 119 mg/dL 70-105 (test dxmd=659) CALCIUM (BEAKER) (test 8.9 mg/dL 8.4-10.2 dtao=795) EGFR (BEAKER) (test 124 mL/min/1.73 sq m ESTIMATED GFR IS NOT cpsq=2995) ACCURATE CREATININE CLEARANCE IN PREDICTING GLOMERULAR FILTRATION RATE. ESTIMATED GFR IS NOT APPLICABLE FOR DIALYSIS PATIENTS. CBC W/PLT COUNT & AUTO [id number] 05:11:00 Test Item Value Reference Range Comments WHITE BLOOD CELL COUNT (BEAKER) (test heba=035) 10.2 K/ L 3.5-10.5 RED BLOOD CELL COUNT (BEAKER) (test rgxg=441) 3.90 M/ L 4.63-6.08 HEMOGLOBIN (BEAKER) (test jyyy=845) 12.0 GM/DL 13.7-17.5 HEMATOCRIT (BEAKER) (test vqaf=940) 35.3 % 40.1-51.0 MEAN CORPUSCULAR VOLUME (BEAKER) (test hukj=166) 90.5 fL 79.0-92.2 MEAN CORPUSCULAR HEMOGLOBIN (BEAKER) (test 30.8 pg 25.7-32.2 ktvq=771) MEAN CORPUSCULAR HEMOGLOBIN CONC (BEAKER) (test 34.0 GM/DL 32.3-36.5 btfj=239) RED CELL DISTRIBUTION WIDTH (BEAKER) (test 13.3 % 11.6-14.4 dako=493) PLATELET COUNT (BEAKER) (test hxcz=750) 233 K/CU MM 150-450 MEAN PLATELET VOLUME (BEAKER) (test lbzm=748) 10.9 fL 9.4-12.4 NUCLEATED RED BLOOD CELLS (BEAKER) (test 0 /100 WBC 0-0 bxdm=313) NEUTROPHILS RELATIVE PERCENT (BEAKER) (test 58 % eelp=906) LYMPHOCYTES RELATIVE PERCENT (BEAKER) (test 25 % wsmf=534) MONOCYTES RELATIVE PERCENT (BEAKER) (test 11 % oyjm=759) EOSINOPHILS RELATIVE PERCENT (BEAKER) (test 5 % qmkd=917) BASOPHILS RELATIVE PERCENT (BEAKER) (test 1 % qvkd=641) NEUTROPHILS ABSOLUTE COUNT (BEAKER) (test 5.92 K/ L 1.78-5.38 dxqf=462) LYMPHOCYTES ABSOLUTE COUNT (BEAKER) (test 2.51 K/ L 1.32-3.57 qevb=241) MONOCYTES ABSOLUTE COUNT (BEAKER) (test 1.12 K/ L 0.30-0.82 uirm=268) EOSINOPHILS ABSOLUTE COUNT (BEAKER) (test 0.50 K/ L 0.04-0.54 kgfy=545) BASOPHILS ABSOLUTE COUNT (BEAKER) (test 0.06 K/ L 0.01-0.08 guzf=046) IMMATURE GRANULOCYTES-RELATIVE PERCENT (BEAKER) 0 % 0-1 (test ceil=5307) [id number] 07:07:00 Test Item Value Reference Range Comments PARTIAL THROMBOPLASTIN TIME (BEAKER) (test 107.0 seconds 22.5-36.0 wett=534) [id number] 06:15:00 Test Item Value Reference Range Comments PARTIAL THROMBOPLASTIN TIME (BEAKER) (test 117.6 seconds 22.5-36.0 wmid=034) [id number] 05:49:00 Test Item Value Reference Range Comments PARTIAL THROMBOPLASTIN TIME (BEAKER) (test 96.1 seconds 22.5-36.0 mkyb=925) BASIC METABOLIC [id number] 05:21:00 Test Item Value Reference Range Comments SODIUM (BEAKER) (test 137 meq/L 136-145 rvox=999) POTASSIUM (BEAKER) (test 3.8 meq/L 3.5-5.1 uanr=745) CHLORIDE (BEAKER) (test 104 meq/L 98-107 dsph=374) CO2 (BEAKER) (test 24 meq/L 22-29 yiij=273) BLOOD UREA NITROGEN 9 mg/dL 7-21 (BEAKER) (test tpuh=602) CREATININE (BEAKER) (test 0.80 mg/dL 0.57-1.25 hxeg=271) GLUCOSE RANDOM (BEAKER) 93 mg/dL 70-105 (test nqet=275) CALCIUM (BEAKER) (test 8.7 mg/dL 8.4-10.2 dywj=296) EGFR (BEAKER) (test 121 mL/min/1.73 sq m ESTIMATED GFR IS NOT ycyg=0916) ACCURATE CREATININE CLEARANCE IN PREDICTING GLOMERULAR FILTRATION RATE. ESTIMATED GFR IS NOT APPLICABLE FOR DIALYSIS PATIENTS. CBC W/PLT COUNT & AUTO [id number] 04:58:00 Test Item Value Reference Range Comments WHITE BLOOD CELL COUNT (BEAKER) (test qttc=162) 11.2 K/ L 3.5-10.5 RED BLOOD CELL COUNT (BEAKER) (test lxiw=533) 3.92 M/ L 4.63-6.08 HEMOGLOBIN (BEAKER) (test rstq=985) 12.0 GM/DL 13.7-17.5 HEMATOCRIT (BEAKER) (test sifo=103) 35.0 % 40.1-51.0 MEAN CORPUSCULAR VOLUME (BEAKER) (test avrc=390) 89.3 fL 79.0-92.2 MEAN CORPUSCULAR HEMOGLOBIN (BEAKER) (test 30.6 pg 25.7-32.2 rons=759) MEAN CORPUSCULAR HEMOGLOBIN CONC (BEAKER) (test 34.3 GM/DL 32.3-36.5 geqk=995) RED CELL DISTRIBUTION WIDTH (BEAKER) (test 13.3 % 11.6-14.4 krpv=675) PLATELET COUNT (BEAKER) (test uyrd=997) 222 K/CU MM 150-450 MEAN PLATELET VOLUME (BEAKER) (test bbgo=953) 10.6 fL 9.4-12.4 NUCLEATED RED BLOOD CELLS (BEAKER) (test 0 /100 WBC 0-0 kugy=452) NEUTROPHILS RELATIVE PERCENT (BEAKER) (test 53 % tyhn=078) LYMPHOCYTES RELATIVE PERCENT (BEAKER) (test 32 % cnjx=067) MONOCYTES RELATIVE PERCENT (BEAKER) (test 11 % rujy=351) EOSINOPHILS RELATIVE PERCENT (BEAKER) (test 4 % rbyu=349) BASOPHILS RELATIVE PERCENT (BEAKER) (test 0 % bmva=001) NEUTROPHILS ABSOLUTE COUNT (BEAKER) (test 6.00 K/ L 1.78-5.38 btlw=997) LYMPHOCYTES ABSOLUTE COUNT (BEAKER) (test 3.57 K/ L 1.32-3.57 ivds=898) MONOCYTES ABSOLUTE COUNT (BEAKER) (test 1.20 K/ L 0.30-0.82 fcgm=051) EOSINOPHILS ABSOLUTE COUNT (BEAKER) (test 0.40 K/ L 0.04-0.54 rioh=160) BASOPHILS ABSOLUTE COUNT (BEAKER) (test 0.03 K/ L 0.01-0.08 uuat=236) IMMATURE GRANULOCYTES-RELATIVE PERCENT (BEAKER) 0 % 0-1 (test tigx=2669) [id number] 21:35:00 Test Item Value Reference Range Comments PARTIAL THROMBOPLASTIN TIME (BEAKER) (test 89.5 seconds 22.5-36.0 fcup=103) [id number] 15:44:00 Test Item Value Reference Range Comments PARTIAL THROMBOPLASTIN TIME (BEAKER) (test 85.8 seconds 22.5-36.0 suxe=035) [id number] 09:50:00 Test Item Value Reference Range Comments PARTIAL THROMBOPLASTIN TIME (BEAKER) (test 53.6 seconds 22.5-36.0 uikn=861) BASIC METABOLIC [id number] 06:24:00 Test Item Value Reference Range Comments SODIUM (BEAKER) (test 137 meq/L 136-145 tohk=141) POTASSIUM (BEAKER) (test 3.8 meq/L 3.5-5.1 uknx=316) CHLORIDE (BEAKER) (test 105 meq/L 98-107 qeyt=847) CO2 (BEAKER) (test 24 meq/L 22-29 vdnq=908) BLOOD UREA NITROGEN 11 mg/dL 7-21 (BEAKER) (test ttjm=323) CREATININE (BEAKER) (test 0.76 mg/dL 0.57-1.25 vnlh=812) GLUCOSE RANDOM (BEAKER) 94 mg/dL 70-105 (test cign=876) CALCIUM (BEAKER) (test 8.5 mg/dL 8.4-10.2 embw=067) EGFR (BEAKER) (test 128 mL/min/1.73 sq m ESTIMATED GFR IS NOT neis=7058) ACCURATE CREATININE CLEARANCE IN PREDICTING GLOMERULAR FILTRATION RATE. ESTIMATED GFR IS NOT APPLICABLE FOR DIALYSIS PATIENTS. CBC W/PLT COUNT & AUTO [id number] 06:22:00 Test Item Value Reference Range Comments WHITE BLOOD CELL COUNT (BEAKER) (test rdwo=546) 12.3 K/ L 3.5-10.5 RED BLOOD CELL COUNT (BEAKER) (test ijfq=526) 4.01 M/ L 4.63-6.08 HEMOGLOBIN (BEAKER) (test rjin=481) 12.1 GM/DL 13.7-17.5 HEMATOCRIT (BEAKER) (test ymzl=095) 36.4 % 40.1-51.0 MEAN CORPUSCULAR VOLUME (BEAKER) (test uker=753) 90.8 fL 79.0-92.2 MEAN CORPUSCULAR HEMOGLOBIN (BEAKER) (test 30.2 pg 25.7-32.2 iccq=362) MEAN CORPUSCULAR HEMOGLOBIN CONC (BEAKER) (test 33.2 GM/DL 32.3-36.5 bvyx=032) RED CELL DISTRIBUTION WIDTH (BEAKER) (test 13.4 % 11.6-14.4 fgjo=641) PLATELET COUNT (BEAKER) (test znii=680) 233 K/CU MM 150-450 MEAN PLATELET VOLUME (BEAKER) (test vxia=880) 10.7 fL 9.4-12.4 NUCLEATED RED BLOOD CELLS (BEAKER) (test 0 /100 WBC 0-0 lkgo=619) NEUTROPHILS RELATIVE PERCENT (BEAKER) (test 70 % moun=329) LYMPHOCYTES RELATIVE PERCENT (BEAKER) (test 21 % tida=396) MONOCYTES RELATIVE PERCENT (BEAKER) (test 7 % oedi=143) EOSINOPHILS RELATIVE PERCENT (BEAKER) (test 2 % laxx=966) BASOPHILS RELATIVE PERCENT (BEAKER) (test 0 % gytg=973) NEUTROPHILS ABSOLUTE COUNT (BEAKER) (test 8.59 K/ L 1.78-5.38 csbg=039) LYMPHOCYTES ABSOLUTE COUNT (BEAKER) (test 2.52 K/ L 1.32-3.57 qjle=629) MONOCYTES ABSOLUTE COUNT (BEAKER) (test 0.86 K/ L 0.30-0.82 ssty=335) EOSINOPHILS ABSOLUTE COUNT (BEAKER) (test 0.23 K/ L 0.04-0.54 xuzj=295) BASOPHILS ABSOLUTE COUNT (BEAKER) (test 0.03 K/ L 0.01-0.08 gmtn=238) IMMATURE GRANULOCYTES-RELATIVE PERCENT (BEAKER) 0 % 0-1 (test detn=9975) [id number] 17:27:00 Test Item Value Reference Range Comments ACTIVATED CLOTTING TIME 269 sec TESTED AT [facility] [address] ([place]) (test ixou=107) [facility] [address] CT, CTA AAA, W/ [place].EXT.[id number] 15:50:00Please page me when done. Need stat cta for surgery. Thanks.Addendum BeginsREPORT STATUS:A Addendum: I reviewed the nonvascular features of this examination and concur with Dr. Restrepo's report. Signed: Camila Esparzay MDReport Verified Date/ Time: 03/04/2018 15:50:09 Reading Location: [place] [address] Angio Body Reading RoomAddendum EndsFINAL REPORT CT [...] dynamic data set. In the right, the [place] right SFA is occluded. The right profunda [...] femoral bypass graft is identified. 3. The [place] left SFA is occluded. The right SFA [...] dictated regarding the non-vascular findings by the Can Closing Machine Operator Radiologist. Signed: Shawn Restrepo MDReport Verified Date/Time: 03/04/2018 07:12:51 Reading Location: [place] [id number] MRI [id number] 10:51:00 Test Item Value Reference Range Comments PARTIAL THROMBOPLASTIN TIME (BEAKER) (test 66.0 seconds 22.5-36.0 ltho=816) BASIC METABOLIC [id number] 02:33:00 Test Item Value Reference Range Comments SODIUM (BEAKER) (test 137 meq/L 136-145 diwl=081) POTASSIUM (BEAKER) (test 3.8 meq/L 3.5-5.1 ehzw=536) CHLORIDE (BEAKER) (test 106 meq/L 98-107 nlsi=887) CO2 (BEAKER) (test 21 meq/L 22-29 paes=495) BLOOD UREA NITROGEN 7 mg/dL 7-21 (BEAKER) (test dcjf=896) CREATININE (BEAKER) (test 0.77 mg/dL 0.57-1.25 sbxo=316) GLUCOSE RANDOM (BEAKER) 96 mg/dL 70-105 (test chxb=189) CALCIUM (BEAKER) (test 9.1 mg/dL 8.4-10.2 nxkr=815) EGFR (BEAKER) (test 126 mL/min/1.73 sq m ESTIMATED GFR IS NOT dfsh=5735) ACCURATE CREATININE CLEARANCE IN PREDICTING GLOMERULAR FILTRATION RATE. ESTIMATED GFR IS NOT APPLICABLE FOR DIALYSIS PATIENTS. [id number] 02:28:00 Test Item Value Reference Range Comments PARTIAL THROMBOPLASTIN TIME (BEAKER) (test 44.6 seconds 22.5-36.0 xama=249) CBC W/PLT COUNT & AUTO [id number] 02:20:00 Test Item Value Reference Range Comments WHITE BLOOD CELL COUNT (BEAKER) (test bhhw=699) 10.5 K/ L 3.5-10.5 RED BLOOD CELL COUNT (BEAKER) (test enfr=021) 4.55 M/ L 4.63-6.08 HEMOGLOBIN (BEAKER) (test iegw=772) 14.0 GM/DL 13.7-17.5 HEMATOCRIT (BEAKER) (test gzhj=602) 40.5 % 40.1-51.0 MEAN CORPUSCULAR VOLUME (BEAKER) (test qvpn=736) 89.0 fL 79.0-92.2 MEAN CORPUSCULAR HEMOGLOBIN (BEAKER) (test 30.8 pg 25.7-32.2 csht=678) MEAN CORPUSCULAR HEMOGLOBIN CONC (BEAKER) (test 34.6 GM/DL 32.3-36.5 bgfs=867) RED CELL DISTRIBUTION WIDTH (BEAKER) (test 13.3 % 11.6-14.4 yygv=665) PLATELET COUNT (BEAKER) (test snzb=943) 262 K/CU MM 150-450 MEAN PLATELET VOLUME (BEAKER) (test bbvf=525) 10.1 fL 9.4-12.4 NUCLEATED RED BLOOD CELLS (BEAKER) (test 0 /100 WBC 0-0 ayta=899) NEUTROPHILS RELATIVE PERCENT (BEAKER) (test 57 % ymex=579) LYMPHOCYTES RELATIVE PERCENT (BEAKER) (test 32 % vprh=422) MONOCYTES RELATIVE PERCENT (BEAKER) (test 7 % jbob=943) EOSINOPHILS RELATIVE PERCENT (BEAKER) (test 3 % albv=018) BASOPHILS RELATIVE PERCENT (BEAKER) (test 1 % hjgh=841) NEUTROPHILS ABSOLUTE COUNT (BEAKER) (test 6.00 K/ L 1.78-5.38 xgox=133) LYMPHOCYTES ABSOLUTE COUNT (BEAKER) (test 3.38 K/ L 1.32-3.57 nzbb=200) MONOCYTES ABSOLUTE COUNT (BEAKER) (test 0.74 K/ L 0.30-0.82 ljcc=823) EOSINOPHILS ABSOLUTE COUNT (BEAKER) (test 0.34 K/ L 0.04-0.54 quer=653) BASOPHILS ABSOLUTE COUNT (BEAKER) (test 0.05 K/ L 0.01-0.08 wdzy=754) IMMATURE GRANULOCYTES-RELATIVE PERCENT (BEAKER) 0 % 0-1 (test shsu=5123) [id number] 23:51:00 Test Item Value Reference Range Comments PARTIAL THROMBOPLASTIN TIME (BEAKER) (test > seconds 22.5-36.0 tblx=908) [id number] 15:27:00 Test Item Value Reference Range Comments PARTIAL THROMBOPLASTIN TIME (BEAKER) (test 56.5 seconds 22.5-36.0 jutk=002) RAD, FOOT, MIN 3 VIEWS, [id number] 08:43:00Reason for exam:->Foot ulcer - r/o osteoFINAL [...] MDReport Verified Date/Time: 03/03/2018 08:43:54 Reading Location: [facility] Radiology Reading Room [id number] 08:24:00 Test Item Value Reference Range Comments PARTIAL THROMBOPLASTIN TIME (BEAKER) (test 67.3 seconds 22.5-36.0 ckhs=818) [id number] 06:15:00 Test Item Value Reference Range Comments PARTIAL THROMBOPLASTIN TIME (BEAKER) (test 180.5 seconds 22.5-36.0 stlf=275) Prior to initiating heparinBASIC METABOLIC [id number] 04:42:00 Test Item Value Reference Range Comments SODIUM (BEAKER) (test 139 meq/L 136-145 qfbm=836) POTASSIUM (BEAKER) (test 3.6 meq/L 3.5-5.1 vmax=029) CHLORIDE (BEAKER) (test 108 meq/L 98-107 oztq=506) CO2 (BEAKER) (test 25 meq/L 22-29 tlpc=843) BLOOD UREA NITROGEN 8 mg/dL 7-21 (BEAKER) (test nbgp=933) CREATININE (BEAKER) (test 0.77 mg/dL 0.57-1.25 rshv=337) GLUCOSE RANDOM (BEAKER) 95 mg/dL 70-105 (test ohzg=503) CALCIUM (BEAKER) (test 8.7 mg/dL 8.4-10.2 oznm=754) EGFR (BEAKER) (test 126 mL/min/1.73 sq m ESTIMATED GFR IS NOT film=5805) ACCURATE CREATININE CLEARANCE IN PREDICTING GLOMERULAR FILTRATION RATE. ESTIMATED GFR IS NOT APPLICABLE FOR DIALYSIS PATIENTS. CBC W/PLT COUNT & AUTO [id number] 04:31:00 Test Item Value Reference Range Comments WHITE BLOOD CELL COUNT (BEAKER) (test nkyt=566) 9.4 K/ L 3.5-10.5 RED BLOOD CELL COUNT (BEAKER) (test iopc=734) 4.41 M/ L 4.63-6.08 HEMOGLOBIN (BEAKER) (test plpg=650) 13.4 GM/DL 13.7-17.5 HEMATOCRIT (BEAKER) (test vstx=144) 39.5 % 40.1-51.0 MEAN CORPUSCULAR VOLUME (BEAKER) (test nttk=940) 89.6 fL 79.0-92.2 MEAN CORPUSCULAR HEMOGLOBIN (BEAKER) (test 30.4 pg 25.7-32.2 wzgj=718) MEAN CORPUSCULAR HEMOGLOBIN CONC (BEAKER) (test 33.9 GM/DL 32.3-36.5 mtag=302) RED CELL DISTRIBUTION WIDTH (BEAKER) (test 13.4 % 11.6-14.4 gtjo=007) PLATELET COUNT (BEAKER) (test lkpz=008) 241 K/CU MM 150-450 MEAN PLATELET VOLUME (BEAKER) (test ebxb=136) 10.2 fL 9.4-12.4 NUCLEATED RED BLOOD CELLS (BEAKER) (test 0 /100 WBC 0-0 ubig=157) NEUTROPHILS RELATIVE PERCENT (BEAKER) (test 51 % mowy=897) LYMPHOCYTES RELATIVE PERCENT (BEAKER) (test 38 % uupe=167) MONOCYTES RELATIVE PERCENT (BEAKER) (test 7 % ewlo=105) EOSINOPHILS RELATIVE PERCENT (BEAKER) (test 4 % dmnv=629) BASOPHILS RELATIVE PERCENT (BEAKER) (test 0 % dcfb=735) NEUTROPHILS ABSOLUTE COUNT (BEAKER) (test 4.77 K/ L 1.78-5.38 srgs=889) LYMPHOCYTES ABSOLUTE COUNT (BEAKER) (test 3.51 K/ L 1.32-3.57 msvr=906) MONOCYTES ABSOLUTE COUNT (BEAKER) (test 0.67 K/ L 0.30-0.82 djiq=322) EOSINOPHILS ABSOLUTE COUNT (BEAKER) (test 0.37 K/ L 0.04-0.54 pseo=863) BASOPHILS ABSOLUTE COUNT (BEAKER) (test 0.03 K/ L 0.01-0.08 bzfo=259) IMMATURE GRANULOCYTES-RELATIVE PERCENT (BEAKER) 0 % 0-1 (test bjnz=8798) [id number] 22:31:00 Test Item Value Reference Range Comments PARTIAL THROMBOPLASTIN TIME (BEAKER) (test 31.2 seconds 22.5-36.0 ycve=207) Prior to initiating heparinBASIC METABOLIC [id number] 18:30:00 Test Item Value Reference Range Comments SODIUM (BEAKER) (test 139 meq/L 136-145 lcrq=825) POTASSIUM (BEAKER) (test 3.6 meq/L 3.5-5.1 uzpe=637) CHLORIDE (BEAKER) (test 106 meq/L 98-107 soim=292) CO2 (BEAKER) (test 21 meq/L 22-29 yrmb=174) BLOOD UREA NITROGEN 8 mg/dL 7-21 (BEAKER) (test ytlq=363) CREATININE (BEAKER) (test 0.83 mg/dL 0.57-1.25 gebk=590) GLUCOSE RANDOM (BEAKER) 110 mg/dL 70-105 (test hkmf=964) CALCIUM (BEAKER) (test 9.7 mg/dL 8.4-10.2 njfe=436) EGFR (BEAKER) (test 116 mL/min/1.73 sq m ESTIMATED GFR IS NOT jziv=8550) ACCURATE CREATININE CLEARANCE IN PREDICTING GLOMERULAR FILTRATION RATE. ESTIMATED GFR IS NOT APPLICABLE FOR DIALYSIS PATIENTS. C-REACTIVE [id number] 18:30:00 Test Item Value Reference Range Comments C-REACTIVE PROTEIN (BEAKER) (test ivwv=389) 0.04 mg/dL 0.00-0.50 CBC W/PLT COUNT & AUTO [id number] 18:13:00 Test Item Value Reference Range Comments WHITE BLOOD CELL COUNT (BEAKER) (test ymbh=894) 10.2 K/ L 3.5-10.5 RED BLOOD CELL COUNT (BEAKER) (test vgrc=209) 4.65 M/ L 4.63-6.08 HEMOGLOBIN (BEAKER) (test bsdy=861) 14.3 GM/DL 13.7-17.5 HEMATOCRIT (BEAKER) (test qxnd=969) 40.7 % 40.1-51.0 MEAN CORPUSCULAR VOLUME (BEAKER) (test xkbb=106) 87.5 fL 79.0-92.2 MEAN CORPUSCULAR HEMOGLOBIN (BEAKER) (test 30.8 pg 25.7-32.2 rjhv=988) MEAN CORPUSCULAR HEMOGLOBIN CONC (BEAKER) (test 35.1 GM/DL 32.3-36.5 vidm=220) RED CELL DISTRIBUTION WIDTH (BEAKER) (test 13.3 % 11.6-14.4 tsnt=045) PLATELET COUNT (BEAKER) (test wetm=900) 238 K/CU MM 150-450 MEAN PLATELET VOLUME (BEAKER) (test velj=083) 10.1 fL 9.4-12.4 NUCLEATED RED BLOOD CELLS (BEAKER) (test 0 /100 WBC 0-0 wymu=587) NEUTROPHILS RELATIVE PERCENT (BEAKER) (test 64 % wsys=139) LYMPHOCYTES RELATIVE PERCENT (BEAKER) (test 26 % rypk=644) MONOCYTES RELATIVE PERCENT (BEAKER) (test 7 % ysqe=311) EOSINOPHILS RELATIVE PERCENT (BEAKER) (test 2 % mzon=125) BASOPHILS RELATIVE PERCENT (BEAKER) (test 0 % ssci=896) NEUTROPHILS ABSOLUTE COUNT (BEAKER) (test 6.54 K/ L 1.78-5.38 xwht=304) LYMPHOCYTES ABSOLUTE COUNT (BEAKER) (test 2.64 K/ L 1.32-3.57 jovy=794) MONOCYTES ABSOLUTE COUNT (BEAKER) (test 0.71 K/ L 0.30-0.82 gbxw=840) EOSINOPHILS ABSOLUTE COUNT (BEAKER) (test 0.21 K/ L 0.04-0.54 fhbn=829) BASOPHILS ABSOLUTE COUNT (BEAKER) (test 0.04 K/ L 0.01-0.08 fqlk=285) IMMATURE GRANULOCYTES-RELATIVE PERCENT (BEAKER) 0 % 0-1 (test psfy=6081) TISSUE [id number] 14:18:00Surgical Pathology Report Case: [id number] Authorizing Provider: Greta Urban MD Collected: 09/25/2017 1609 Ordering Location: [facility] Received: 09/26/2017 0819 PERIOPERATIVE SERVICES Pathologist: Dejan Martin MD Specimens: A) - Plaque, LEFT FEMORAL PLAQUE B) -Plaque, RIGHT FEMORAL PLAQUE A. ARTERY, LEFT FEMORAL, ENDARTERECTOMY:CALCIFIC ATHEROSCLEROTIC PLAQUEB. ARTERY, RIGHT FEMORAL, ENDARTERECTOMY:CALCIFIC ATHEROSCLEROTIC PLAQUE WITH ATTACHED FIBRIN THROMBUS Signing Pathologist Direct Phone Line: [phone] signed by Dejan Martin MD on 09/30/2017 at 2:18 [id number]; [id number]. Left femoral plaque. B. Right femoral plaque Specimen A: Received in saline labeled "plaque", description "left femoral plaque" is a 2.5 x 2.5 x 0.5 cm aggregate of sinha-white to yellow-ferreira, rubbery fibrous tissue. Sectioning reveals focal calcification. Space Control Supervisor sections are submitted in cassette A1 for decalcification.Specimen B: Received in saline labeled "plaque", description "right femoral plaque" are three irregular, sinha-white to yellow-ferreira, rubbery portions of fibrous tissue measuring 1.5 x 1.5 x 0.2 cm in aggregate. Sectioning reveals focal calcification. The specimen is entirely submitted in cassette B1 for decalcification. DB/[id number] 00:38:00 Test Item Value Reference Range Comments MAGNESIUM (BEAKER) (test apdv=563) 2.1 mg/dL 1.6-2.6 BASIC METABOLIC [id number] 00:38:00 Test Item Value Reference Range Comments SODIUM (BEAKER) (test 136 meq/L 136-145 brfg=819) POTASSIUM (BEAKER) (test 3.8 meq/L 3.5-5.1 gcxa=192) CHLORIDE (BEAKER) (test 104 meq/L 98-107 yobq=985) CO2 (BEAKER) (test 26 meq/L 22-29 ucof=050) BLOOD UREA NITROGEN 11 mg/dL 7-21 (BEAKER) (test gobb=838) CREATININE (BEAKER) (test 0.92 mg/dL 0.57-1.25 vxwq=426) GLUCOSE RANDOM (BEAKER) 99 mg/dL 70-105 (test mapv=044) CALCIUM (BEAKER) (test 8.5 mg/dL 8.4-10.2 ajxc=340) EGFR (BEAKER) (test 103 mL/min/1.73 sq m ESTIMATED GFR IS NOT iafd=9602) ACCURATE CREATININE CLEARANCE IN PREDICTING GLOMERULAR FILTRATION RATE. ESTIMATED GFR IS NOT APPLICABLE FOR DIALYSIS PATIENTS. CBC W/PLT COUNT & AUTO [id number] 13:39:00 Test Item Value Reference Range Comments WHITE BLOOD CELL COUNT 14.6 K/ L 3.5-10.5 (BEAKER) (test vehv=491) RED BLOOD CELL COUNT (BEAKER) 3.59 M/ L 4.63-6.08 (test igdn=326) HEMOGLOBIN (BEAKER) (test 11.0 GM/DL 13.7-17.5 rwcv=325) HEMATOCRIT (BEAKER) (test 32.8 % 40.1-51.0 wxst=516) MEAN CORPUSCULAR VOLUME 91.4 fL 79.0-92.2 (BEAKER) (test wtun=715) MEAN CORPUSCULAR HEMOGLOBIN 30.6 pg 25.7-32.2 (BEAKER) (test ymqt=296) MEAN CORPUSCULAR HEMOGLOBIN 33.5 GM/DL 32.3-36.5 CONC (BEAKER) (test osro=025) RED CELL DISTRIBUTION WIDTH 12.9 % 11.6-14.4 (BEAKER) (test xukg=009) PLATELET COUNT (BEAKER) (test 143 K/CU MM 150-450 ibmd=665) MEAN PLATELET VOLUME (BEAKER) 10.8 fL 9.4-12.4 (test gwmw=565) NUCLEATED RED BLOOD CELLS 0 /100 WBC 0-0 (BEAKER) (test nttl=242) NEUTROPHILS RELATIVE PERCENT 66 % This is an appended report. (BEAKER) (test jiwd=570) These results have been appended to a previously final verified report. LYMPHOCYTES RELATIVE PERCENT 20 % This is an appended report. (BEAKER) (test kafo=653) These results have been appended to a previously final verified report. MONOCYTES RELATIVE PERCENT 11 % This is an appended report. (BEAKER) (test spsy=833) These results have been appended to a previously final verified report. EOSINOPHILS RELATIVE PERCENT 3 % This is an appended report. (BEAKER) (test wmga=837) These results have been appended to a previously final verified report. BASOPHILS RELATIVE PERCENT 0 % This is an appended report. (BEAKER) (test ykam=347) These results have been appended to a previously final verified report. NEUTROPHILS ABSOLUTE COUNT 9.59 K/ L 1.78-5.38 This is an appended report. (BEAKER) (test dqei=908) These results have been appended to a previously final verified report. LYMPHOCYTES ABSOLUTE COUNT 2.96 K/ L 1.32-3.57 This is an appended report. (BEAKER) (test snzo=014) These results have been appended to a previously final verified report. MONOCYTES ABSOLUTE COUNT 1.59 K/ L 0.30-0.82 This is an appended report. (BEAKER) (test llin=240) These results have been appended to a previously final verified report. EOSINOPHILS ABSOLUTE COUNT 0.37 K/ L 0.04-0.54 This is an appended report. (BEAKER) (test yjnu=873) These results have been appended to a previously final verified report. BASOPHILS ABSOLUTE COUNT 0.04 K/ L 0.01-0.08 This is an appended report. (BEAKER) (test wffz=994) These results have been appended to a previously final verified report. IMMATURE GRANULOCYTES-RELATIVE 1 % 0-1 This is an appended report. PERCENT (BEAKER) (test These results have been ythz=6221) appended to a previously final verified report. POCT-GLUCOSE [id number] 09:12:00 Test Item Value Reference Range Comments POC-GLUCOSE METER (BEAKER) 81 mg/dL 70-110 TESTED AT [facility] [address] [facility] (test kzhb=2509) [facility] [address] BASIC METABOLIC [id number] 05:02:00 Test Item Value Reference Range Comments SODIUM (BEAKER) (test 136 meq/L 136-145 teza=054) POTASSIUM (BEAKER) (test 3.8 meq/L 3.5-5.1 dakf=297) CHLORIDE (BEAKER) (test 105 meq/L 98-107 lkht=156) CO2 (BEAKER) (test 25 meq/L 22-29 zqam=051) BLOOD UREA NITROGEN 9 mg/dL 7-21 (BEAKER) (test yrfu=291) CREATININE (BEAKER) (test 0.82 mg/dL 0.57-1.25 aozl=829) GLUCOSE RANDOM (BEAKER) 89 mg/dL 70-105 (test nydz=550) CALCIUM (BEAKER) (test 8.3 mg/dL 8.4-10.2 gueu=955) EGFR (BEAKER) (test 117 mL/min/1.73 sq m ESTIMATED GFR IS NOT wpon=8609) ACCURATE CREATININE CLEARANCE IN PREDICTING GLOMERULAR FILTRATION RATE. ESTIMATED GFR IS NOT APPLICABLE FOR DIALYSIS PATIENTS. POCT-GLUCOSE [id number] 21:22:00 Test Item Value Reference Range Comments POC-GLUCOSE METER (BEAKER) 121 mg/dL 70-110 TESTED AT [facility] [address] [facility] (test fzkl=4121) [facility] [address] [id number] 04:30:00 Test Item Value Reference Range Comments PHOSPHORUS (BEAKER) (test bdnp=513) 2.7 mg/dL 2.3-4.7 [id number] 04:30:00 Test Item Value Reference Range Comments MAGNESIUM (BEAKER) (test jgpu=095) 2.5 mg/dL 1.6-2.6 BASIC METABOLIC [id number] 04:30:00 Test Item Value Reference Range Comments SODIUM (BEAKER) (test 134 meq/L 136-145 oomz=560) POTASSIUM (BEAKER) (test 3.8 meq/L 3.5-5.1 wyov=050) CHLORIDE (BEAKER) (test 104 meq/L 98-107 kabg=664) CO2 (BEAKER) (test 22 meq/L 22-29 rbpi=436) BLOOD UREA NITROGEN 13 mg/dL 7-21 (BEAKER) (test ihvl=989) CREATININE (BEAKER) (test 0.96 mg/dL 0.57-1.25 ownw=667) GLUCOSE RANDOM (BEAKER) 115 mg/dL 70-105 (test xbuf=481) CALCIUM (BEAKER) (test 8.2 mg/dL 8.4-10.2 vtaq=800) EGFR (BEAKER) (test 98 mL/min/1.73 sq m ESTIMATED GFR IS NOT ebox=6446) ACCURATE CREATININE CLEARANCE IN PREDICTING GLOMERULAR FILTRATION RATE. ESTIMATED GFR IS NOT APPLICABLE FOR DIALYSIS PATIENTS. LACTIC ACID, ARTERIAL, WHOLE [id number] 04:15:00 Test Item Value Reference Range Comments LACTATE BLOOD ARTERIAL (2) (BEAKER) (test 1.0 mmol/L 0.5-2.2 zlog=2204) Effective 09/27/2015: Units/Reference Range ChangeNew: 0.5-2.2 mmol/L Previous: 5 -20 mg/dLCBC W/PLT COUNT & AUTO [id number] 04:12:00 Test Item Value Reference Range Comments WHITE BLOOD CELL COUNT (BEAKER) (test xswq=853) 16.5 K/ L 3.5-10.5 RED BLOOD CELL COUNT (BEAKER) (test xtpw=284) 4.08 M/ L 4.63-6.08 HEMOGLOBIN (BEAKER) (test lbms=672) 12.5 GM/DL 13.7-17.5 HEMATOCRIT (BEAKER) (test hxab=393) 36.9 % 40.1-51.0 MEAN CORPUSCULAR VOLUME (BEAKER) (test snyc=992) 90.4 fL 79.0-92.2 MEAN CORPUSCULAR HEMOGLOBIN (BEAKER) (test 30.6 pg 25.7-32.2 bqtb=242) MEAN CORPUSCULAR HEMOGLOBIN CONC (BEAKER) (test 33.9 GM/DL 32.3-36.5 mjvy=595) RED CELL DISTRIBUTION WIDTH (BEAKER) (test 12.8 % 11.6-14.4 bqbs=343) PLATELET COUNT (BEAKER) (test phsj=649) 183 K/CU MM 150-450 MEAN PLATELET VOLUME (BEAKER) (test sdgb=394) 10.2 fL 9.4-12.4 NUCLEATED RED BLOOD CELLS (BEAKER) (test 0 /100 WBC 0-0 nmcx=341) NEUTROPHILS RELATIVE PERCENT (BEAKER) (test 80 % ytdi=619) LYMPHOCYTES RELATIVE PERCENT (BEAKER) (test 11 % qnlx=065) MONOCYTES RELATIVE PERCENT (BEAKER) (test 8 % kgcu=828) EOSINOPHILS RELATIVE PERCENT (BEAKER) (test 1 % zwxu=495) BASOPHILS RELATIVE PERCENT (BEAKER) (test 0 % mppa=089) NEUTROPHILS ABSOLUTE COUNT (BEAKER) (test 13.15 K/ L 1.78-5.38 mqkp=285) LYMPHOCYTES ABSOLUTE COUNT (BEAKER) (test 1.85 K/ L 1.32-3.57 xlsc=281) MONOCYTES ABSOLUTE COUNT (BEAKER) (test 1.36 K/ L 0.30-0.82 ynyu=792) EOSINOPHILS ABSOLUTE COUNT (BEAKER) (test 0.10 K/ L 0.04-0.54 psrr=948) BASOPHILS ABSOLUTE COUNT (BEAKER) (test 0.03 K/ L 0.01-0.08 rrna=320) IMMATURE GRANULOCYTES-RELATIVE PERCENT (BEAKER) 0 % 0-1 (test bqzx=4912) CALCIUM, [id number] 03:51:00 Test Item Value Reference Range Comments CALCIUM IONIZED (BEAKER) (test inny=975) 1.08 mmol/L 1.12-1.27 PH, BLOOD (BEAKER) (test tjjl=5984) 7.41 POCT-GLUCOSE [id number] 22:24:00 Test Item Value Reference Range Comments POC-GLUCOSE METER (BEAKER) 159 mg/dL 70-110 TESTED AT [facility] [address] [facility] (test jhsz=0858) [facility] [address] RAD, CHEST, 1 VIEW, NON [id number] 19:01:00Reason for exam:->central line placement Should this [...] MDReport Verified Date/Time: 2017 19:01:26 Reading Location: [facility] C0[facility] Consult Reading Room [id number] 18:09:00 Test Item Value Reference Range Comments PHOSPHORUS (BEAKER) (test kwxw=490) 3.1 mg/dL 2.3-4.7 [id number] 18:09:00 Test Item Value Reference Range Comments MAGNESIUM (BEAKER) (test lgfu=248) 1.7 mg/dL 1.6-2.6 BASIC METABOLIC [id number] 18:09:00 Test Item Value Reference Range Comments SODIUM (BEAKER) (test 137 meq/L 136-145 vxvw=741) POTASSIUM (BEAKER) (test 3.9 meq/L 3.5-5.1 sktb=281) CHLORIDE (BEAKER) (test 108 meq/L 98-107 drel=155) CO2 (BEAKER) (test 23 meq/L 22-29 ljyw=215) BLOOD UREA NITROGEN 14 mg/dL 7-21 (BEAKER) (test obza=148) CREATININE (BEAKER) (test 0.95 mg/dL 0.57-1.25 nubb=534) GLUCOSE RANDOM (BEAKER) 231 mg/dL 70-105 (test oolx=581) CALCIUM (BEAKER) (test 8.1 mg/dL 8.4-10.2 oekl=207) EGFR (BEAKER) (test 99 mL/min/1.73 sq m ESTIMATED GFR IS NOT yfzx=4184) ACCURATE CREATININE CLEARANCE IN PREDICTING GLOMERULAR FILTRATION RATE. ESTIMATED GFR IS NOT APPLICABLE FOR DIALYSIS PATIENTS. PROTHROMBIN [id number] 18:01:00 Test Item Value Reference Range Comments PROTIME (BEAKER) (test zsgq=245) 15.8 seconds 11.7-14.7 INR (BEAKER) (test btbf=107) 1.3 <=5.9 RECOMMENDED COUMADIN/WARFARIN INR THERAPY RANGESSTANDARD DOSE: 2.0 - 3.0 Includes: PROPHYLAXIS forvenous thrombosis, systemic embolization; TREATMENT for venous thrombosis and/or pulmonary embolus.HIGH RISK: Target INR is 2.5-3.5 for patients with mechanical heart valves.[id number] 18:01:00 Test Item Value Reference Range Comments FIBRINOGEN LEVEL (BEAKER) (test hsha=149) 354 mg/dl 225-434 [id number] 18:01:00 Test Item Value Reference Range Comments PARTIAL THROMBOPLASTIN TIME (BEAKER) (test 34.5 seconds 22.5-36.0 vhjm=346) CBC W/PLT COUNT & AUTO [id number] 17:52:00 Test Item Value Reference Range Comments WHITE BLOOD CELL COUNT (BEAKER) (test uvhk=464) 21.1 K/ L 3.5-10.5 RED BLOOD CELL COUNT (BEAKER) (test cagi=503) 4.68 M/ L 4.63-6.08 HEMOGLOBIN (BEAKER) (test mfnm=920) 14.3 GM/DL 13.7-17.5 HEMATOCRIT (BEAKER) (test aotz=188) 42.8 % 40.1-51.0 MEAN CORPUSCULAR VOLUME (BEAKER) (test obex=808) 91.5 fL 79.0-92.2 MEAN CORPUSCULAR HEMOGLOBIN (BEAKER) (test 30.6 pg 25.7-32.2 vjwh=030) MEAN CORPUSCULAR HEMOGLOBIN CONC (BEAKER) (test 33.4 GM/DL 32.3-36.5 oral=977) RED CELL DISTRIBUTION WIDTH (BEAKER) (test 13.0 % 11.6-14.4 ikea=165) PLATELET COUNT (BEAKER) (test jloa=507) 216 K/CU MM 150-450 MEAN PLATELET VOLUME (BEAKER) (test hfdw=521) 10.3 fL 9.4-12.4 NUCLEATED RED BLOOD CELLS (BEAKER) (test 0 /100 WBC 0-0 seiz=528) NEUTROPHILS RELATIVE PERCENT (BEAKER) (test 65 % rpun=342) LYMPHOCYTES RELATIVE PERCENT (BEAKER) (test 24 % fkns=353) MONOCYTES RELATIVE PERCENT (BEAKER) (test 7 % bthw=774) EOSINOPHILS RELATIVE PERCENT (BEAKER) (test 3 % ymtx=682) BASOPHILS RELATIVE PERCENT (BEAKER) (test 0 % rgvz=419) NEUTROPHILS ABSOLUTE COUNT (BEAKER) (test 13.75 K/ L 1.78-5.38 gesp=520) LYMPHOCYTES ABSOLUTE COUNT (BEAKER) (test 4.96 K/ L 1.32-3.57 tiff=781) MONOCYTES ABSOLUTE COUNT (BEAKER) (test 1.37 K/ L 0.30-0.82 yelx=916) EOSINOPHILS ABSOLUTE COUNT (BEAKER) (test 0.69 K/ L 0.04-0.54 fjbz=823) BASOPHILS ABSOLUTE COUNT (BEAKER) (test 0.05 K/ L 0.01-0.08 bhjl=337) IMMATURE GRANULOCYTES-RELATIVE PERCENT (BEAKER) 1 % 0-1 (test rhhn=9654) HEMOGLOBIN [id number] 14:43:00 Test Item Value Reference Range Comments HEMOGLOBIN A1C (BEAKER) (test tqwd=726) 5.6 % 4.3-6.1 BASIC METABOLIC [id number] 12:35:00 Test Item Value Reference Range Comments SODIUM (BEAKER) (test 141 meq/L 136-145 aoae=796) POTASSIUM (BEAKER) (test 4.1 meq/L 3.5-5.1 jptu=901) CHLORIDE (BEAKER) (test 105 meq/L 98-107 zhps=187) CO2 (BEAKER) (test 28 meq/L 22-29 jamg=344) BLOOD UREA NITROGEN 9 mg/dL 7-21 (BEAKER) (test bdye=979) CREATININE (BEAKER) (test 0.82 mg/dL 0.57-1.25 omzr=824) GLUCOSE RANDOM (BEAKER) 89 mg/dL 70-105 (test onow=857) CALCIUM (BEAKER) (test 9.5 mg/dL 8.4-10.2 bhez=917) EGFR (BEAKER) (test 117 mL/min/1.73 sq m ESTIMATED GFR IS NOT dfoj=6854) ACCURATE CREATININE CLEARANCE IN PREDICTING GLOMERULAR FILTRATION RATE. ESTIMATED GFR IS NOT APPLICABLE FOR DIALYSIS PATIENTS. PROTHROMBIN TIME/[id number] 12:32:00 Test Item Value Reference Range Comments PROTIME (BEAKER) (test pccf=457) 13.7 seconds 11.7-14.7 INR (BEAKER) (test cqsd=869) 1.1 <=5.9 RECOMMENDED COUMADIN/WARFARIN INR THERAPY RANGESSTANDARD DOSE: 2.0 - 3.0 Includes: PROPHYLAXIS forvenous thrombosis, systemic embolization; TREATMENT for venous thrombosis and/or pulmonary embolus.HIGH RISK: Target INR is 2.5-3.5 for patients with mechanical heart valves.RAD, CHEST, 2 [id number] 12:21: 00Reason for Exam:->Pre-OpFINAL REPORT Chest two views INDICATION: Preoperative exam. Aortic iliac disease, femoral popliteal artery atherosclerosis COMPARISON: None available IMPRESSION: There is no focal consolidation, vascular congestion, pleural effusion, or pneumothorax. The cardiomediastinal silhouette is unremarkable. There are mild degenerative spine and shoulder changes. Signed: Yaw Lay MDReport Verified Date/Time: 09/16/2017 12:21:59 Reading Location: [facility] Radiology Reading Room CBC W/ PLT COUNT & AUTO [id number] 12:19:00 Test Item Value Reference Range Comments WHITE BLOOD CELL COUNT (BEAKER) (test lrzx=125) 8.6 K/ L 3.5-10.5 RED BLOOD CELL COUNT (BEAKER) (test udrt=543) 5.05 M/ L 4.63-6.08 HEMOGLOBIN (BEAKER) (test daap=921) 15.4 GM/DL 13.7-17.5 HEMATOCRIT (BEAKER) (test hodt=899) 47.1 % 40.1-51.0 MEAN CORPUSCULAR VOLUME (BEAKER) (test ytjf=416) 93.3 fL 79.0-92.2 MEAN CORPUSCULAR HEMOGLOBIN (BEAKER) (test 30.5 pg 25.7-32.2 atld=476) MEAN CORPUSCULAR HEMOGLOBIN CONC (BEAKER) (test 32.7 GM/DL 32.3-36.5 sbyq=357) RED CELL DISTRIBUTION WIDTH (BEAKER) (test 13.0 % 11.6-14.4 azgq=261) PLATELET COUNT (BEAKER) (test zyth=590) 272 K/CU MM 150-450 MEAN PLATELET VOLUME (BEAKER) (test hxpc=755) 10.6 fL 9.4-12.4 NUCLEATED RED BLOOD CELLS (BEAKER) (test 0 /100 WBC 0-0 vuyp=162) NEUTROPHILS RELATIVE PERCENT (BEAKER) (test 55 % rror=960) LYMPHOCYTES RELATIVE PERCENT (BEAKER) (test 33 % fxoc=415) MONOCYTES RELATIVE PERCENT (BEAKER) (test 6 % gayd=472) EOSINOPHILS RELATIVE PERCENT (BEAKER) (test 5 % xrex=835) BASOPHILS RELATIVE PERCENT (BEAKER) (test 0 % xdcv=853) NEUTROPHILS ABSOLUTE COUNT (BEAKER) (test 4.70 K/ L 1.78-5.38 vcjd=832) LYMPHOCYTES ABSOLUTE COUNT (BEAKER) (test 2.83 K/ L 1.32-3.57 gjvj=250) MONOCYTES ABSOLUTE COUNT (BEAKER) (test 0.51 K/ L 0.30-0.82 yqyy=381) EOSINOPHILS ABSOLUTE COUNT (BEAKER) (test 0.46 K/ L 0.04-0.54 erdy=224) BASOPHILS ABSOLUTE COUNT (BEAKER) (test 0.03 K/ L 0.01-0.08 ulhf=419) IMMATURE GRANULOCYTES-RELATIVE PERCENT (BEAKER) 0 % 0-1 (test mahl=1854)
[2019-02-04] MEDS ORDERED: MORPHINE 2 MG/ML SYR ONE ×2 (21:28→23:09)
[2019-02-04] MEDS ORDERED: ONDANSETRON 4 MG/2 ML VIAL ONE (21:28)
[2019-02-04] MEDS ORDERED: NA CHLORIDE 0.9% 250 ML ONE (21:29)
[2019-02-04] MEDS ORDERED: NA CHLORIDE 0.9% 1,000 ML ONE (21:29)
[2019-02-04] MEDS ORDERED: PANTOPRAZOLE 40 MG INJ ONE (21:29)
[2019-02-04 21:35] LABS: Absolute Lymphocytes (CBC) 3.2 K/uL (0.7-4.9); Basophils % 1.1 % (0-1.3); Hematocrit 33.3 % (39.6-49.0); Lymphocytes % 19.2 % (15.3-44.8); MPV 7.7 fL (7.6-11.3); RBC Red Blood Cell Count 3.89 M/uL (4.33-5.43)
[2019-02-04 21:50] LABS: Protime INR 1.57
[2019-02-04 21:58] LABS: ALT/SGPT 209 U/L (12-78); Albumin 3.1 g/dL (3.4-5.0); Alkaline Phosphatase 295 U/L (45-117); BUN Blood Urea Nitrogen 14 mg/dL (7-18); Bicarbonate 22 mmol/L (21-32); Bilirubin Direct 0.3 mg/dL (0-0.2); Bilirubin Total 0.5 mg/dL (0.2-1.0); Glucose Level 122 mg/dL (74-106); Lipase 209 U/L (73-393); NT PRO-BNP 185 pg/mL (<125); Potassium 3.7 mmol/L (3.5-5.1); Protein, Total 7.4 g/dL (6.4-8.2); Sodium Level 139 mmol/L (136-145); Troponin (Emerg Dept Use Only) < 0.02 ng/mL (0.0-0.045)
[2019-02-04 22:01] LABS: AST/SGOT 1174 U/L (15-37)
--- NOTE | 2019-02-04 22:24 | ER ---
Nurse's Notes [facility] Name: Noé Garcia Age: 58 yrs Sex: Male : 1960 Arrival Date: 02/04/2019 Time: 19:41 Bed 2 Private MD: Diagnosis: Gastrointestinal hemorrhage, unspecified-upper;Unspecified cirrhosis of liver;Abdominal tenderness-mass, liver cancer;Elevated white blood cell count Presentation: 02/04 20:04 Presenting complaint: Patient states: "blood taste" and dark stools. pt discharged ak1 Friday from [facility] dx ulcers. Transition of care: patient was not received from another setting of care. Onset of symptoms was February 04, 2019. Risk Assessment: Do you want to hurt yourself or someone else? Patient reports no desire to harm self or others. Initial Sepsis Screen: Does the patient meet any 2 criteria? No. Patient's initial sepsis screen is negative. Does the patient have a suspected source of infection? No. Patient's initial sepsis screen is negative. Care prior to arrival: None. 20:04 Method Of Arrival: Wheelchair ak1 20:04 Acuity: BINH 3 ak1 Triage Assessment: 20:06 General: Appears in no apparent distress. ak1 02/05 00:24 General: Behavior is calm, cooperative. ak1 Historical: - Allergies: 02/04 20:06 No Known Allergies; ak1 - Home Meds: 20:06 amlodipine 5 mg tab 1 tab once daily [Active]; atorvastatin 40 mg Oral tab 1 tab once ak1 daily [Active]; cilostazol 100 mg Oral tab 1 tab 2 times per day [Active]; clopidogrel 75 mg Oral tab 1 tab once daily [Active]; enoxaparin 50mg subcutaneous 0.5 mL every 12 hours [Active]; lisinopril-hydrochlorothiazide 20-25 mg Oral tab 1 tab once daily [Active]; simvastatin 40 mg Oral tab 1 tab once daily [Active]; tramadol 50 mg Oral tab 1 tab every 4 hours [Active]; - PMHx: 20:06 Cirrhosis; Hypertension; liver cancer; ak1 - PSHx: 20:06 stents in legs; ak1 - Immunization history:: Adult Immunizations unknown. - Social history:: Smoking status: Patient/guardian denies using tobacco. - Ebola Screening: : No symptoms or risks identified at this time. - Family history:: not pertinent. Screenin:10 Abuse screen: Denies threats or abuse. Denies injuries from another. Nutritional screening: No deficits noted. Tuberculosis screening: No symptoms or risk factors identified. Fall Risk None identified. Assessment: 20:09 General: Appears in no apparent distress. Pain: Complains of pain in right upper wh quadrant Pain does not radiate. Pain currently is 6 out of 10 on a pain scale. Quality of pain is described as aching, Pain began 1 hour ago. Neuro: Level of Consciousness is awake, alert, obeys commands, Oriented to person, place, time, situation, Appropriate for age. Cardiovascular: Heart tones S1 S2. Respiratory: Airway is patent Respiratory effort is even, unlabored, Respiratory pattern is regular, symmetrical. GI: Abdomen is flat, non-distended, Bowel sounds present X 4 quads. firm. : No signs and/or symptoms were reported regarding the genitourinary system. EENT: No signs and/or symptoms were reported regarding the EENT system. Derm: Skin is intact, is healthy with good turgor, Skin is pink, warm \\T\\ dry. normal. Musculoskeletal: Circulation, motion, and sensation intact. 21:05 Reassessment: Patient appears in no apparent distress at this time. No changes from previously documented assessment. Patient and/or family updated on plan of care and expected duration. Pain level reassessed. Patient is alert, oriented x 3, equal unlabored respirations, skin warm/dry/pink. 22:10 Reassessment: Patient appears in no apparent distress at this time. No changes from previously documented assessment. Patient and/or family updated on plan of care and expected duration. Pain level reassessed. Patient is alert, oriented x 3, equal unlabored respirations, skin warm/dry/pink. Patient states feeling better. 02/05 03:00 Reassessment: report given to EMS manager development Adam. lares Vital Signs: 02/04 20:06 BP 152 / 106; Pulse 117; Resp 16; Temp 98.6; Pulse Ox 100% on R/A; Weight 49.9 kg (R); ak1 Height 5 ft. 7 in. (170.18 cm) (R); Pain 3/10; 21:00 BP 157 / 109; Pulse 121; Resp 18; Pulse Ox 100% ; 22:00 BP 158 / 87; Pulse 101; Resp 19; Pulse Ox 100% on R/A; wh 23:00 BP 156 / 98; Pulse 98; Resp 18; Pulse Ox 100% on R/A; wh 20:06 Body Mass Index 17.23 (49.90 kg, 170.18 cm) ak1 ED Course: 19:41 Patient arrived in ED. ag3 20:04 Godwin Spain is Primary Nurse. 20:05 Triage completed. ak1 20:05 Jordi Sepulveda MD is Attending Physician. [facility] 20:06 Arm band placed on Patient placed in an exam room, on a stretcher, on pulse oximetry, ak1 Patient notified of wait time. 20:10 Patient has correct armband on for positive identification. Bed in low position. Call light in reach. Side rails up X 1. commercial analyst on. Pulse ox on. NIBP on. 21:01 XRAY Chest (1 view) In Process Unspecified. EDMS 21:25 Inserted saline lock: 20 gauge in right forearm, using aseptic technique. Blood wh collected. 21:59 Notified ED physician of a critical lab result(s). ast [id number]. fc 22:32 CT Abd/Pelvis - IV Contrast Only In Process Unspecified. EDMS 22:40 Inserted saline lock: 20 gauge in left antecubital area, using aseptic technique. 02/05 01:10 No provider procedures requiring assistance completed. Patient transferred, IV remains ak1 in place. Administered Medications: 02/04 21:43 Drug: morphine 2 mg Route: IVP; Site: right forearm; 21:44 Drug: ProTONIX 40 mg Route: IVP; Site: right forearm; 23:08 Follow up: Response: No adverse reaction 21:44 Drug: ProTONIX 8 mg/hr Route: IV; Rate: 25 ml/hr; Site: right forearm; 02/05 01:12 Follow up: IV Status: Infusion continued upon transfer [facility] 02/04 21:44 Drug: Zofran 4 mg Route: IVP; Site: right forearm; 23:09 Follow up: Response: No adverse reaction; Nausea is decreased 21:45 Drug: NS 0.9% 500 ml Route: IV; Rate: bolus; Site: right forearm; 23:08 Follow up: IV Status: Completed infusion 22:00 Drug: NS 0.9% 1000 ml Route: IV; Rate: 125 ml/hr; Site: right forearm; 02/05 01:12 Follow up: IV Status: Infusion continued upon transfer [facility] 02/04 22:40 Drug: Cipro 400 mg Volume: 200 ml; Route: IVPB; Infused Over: 60 mins; Site: left antecubital; 02/05 00:23 Follow up: IV Status: Completed infusion [facility] 02/04 22:41 Drug: Flagyl 500 mg Volume: 100 ml; Route: IVPB; Rate: 200 ml/hr; Infused Over: 30 wh mins; Site: left antecubital; 02/05 00:51 Follow up: IV Status: Completed infusion [facility] 02/04 23:08 Drug: morphine 2 mg {Note: RASS 0.} Route: IVP; Site: right forearm; 02/05 00:24 Follow up: Response: No adverse reaction; RASS: Drowsy (-1) [facility] 00:59 Drug: fentaNYL (PF) 50 mcg Route: IVP; Site: left antecubital; [facility] 01:12 Follow up: Response: No adverse reaction; Pain is decreased; RASS: Drowsy (-1) [facility] Outcome: 02/04 22:23 ER care complete, transfer ordered by MD. gramajo 02/05 01:11 Transferred by ground EMS to [facility], Transfer form completed. ak1 X-rays sent w/ patient. Note: attempt to call report, RN giving blood and asked to be called back in 15 minuets. Condition: stable Instructed on the need for transfer. 01:31 Transferred Note: 2nd attempt to call report, Eliza at the transfer center stated she ak1 would call back with a new room assignment. 03:14 Patient left the ED. ak1 Signatures: Dispatcher [employer] EDMS Jordi Sepulveda MD MD cha Chretien, Felicia, RN RN fc Krenek, Amber, RN RN ak1 Godwin Spain Oma Arias ag3 Corrections: (The following items were deleted from the chart) 02/04 20:13 20:09 GI: Abdomen is flat, non-distended, Bowel sounds present X 4 quads. Abd is soft wh and non tender X 4 quads. wh 21:44 21:43 Zofran 4 mg IVP in left forearm [facility]
--- NOTE | 2019-02-04 22:25 | EDPHYS ---
Physician Documentation [facility] Name: Noé Garcia Age: 58 yrs Sex: Male : 1960 Arrival Date: 02/04/2019 Time: 19:41 Bed 2 Private MD: ED Physician Jordi Sepulveda HPI: 02/04 20:45 This 58 yrs old Black Male presents to ER via Wheelchair with complaints of TASTING rox BLOOD. 20:45 The patient presents with abdominal pain. Onset: The symptoms/episode began/occurred rox today. The patient presents to the emergency department with rectal bleeding, a moderate amount, melena, with multiple such episodes. Onset: The symptoms/episode began/occurred today. Abdominal pain: described as crampy, located in the right upper quadrant and right lower quadrant. Modifying factors: The symptoms are alleviated by nothing, the symptoms are aggravated by movement. Associated signs and symptoms: Pertinent positives: dizziness when standing. The symptoms are described as constant, crampy. Historical: - Allergies: 20:06 No Known Allergies; ak1 - Home Meds: 20:06 amlodipine 5 mg tab 1 tab once daily [Active]; atorvastatin 40 mg Oral tab 1 tab once ak1 daily [Active]; cilostazol 100 mg Oral tab 1 tab 2 times per day [Active]; clopidogrel 75 mg Oral tab 1 tab once daily [Active]; enoxaparin 50mg subcutaneous 0.5 mL every 12 hours [Active]; lisinopril-hydrochlorothiazide 20-25 mg Oral tab 1 tab once daily [Active]; simvastatin 40 mg Oral tab 1 tab once daily [Active]; tramadol 50 mg Oral tab 1 tab every 4 hours [Active]; - PMHx: 20:06 Cirrhosis; Hypertension; liver cancer; ak1 - PSHx: 20:06 stents in legs; ak1 - Immunization history:: Adult Immunizations unknown. - Social history:: Smoking status: Patient/guardian denies using tobacco. - Ebola Screening: : No symptoms or risks identified at this time. - Family history:: not pertinent. ROS: 20:45 Constitutional: Negative for fever, chills, and weight loss, Eyes: Negative for injury, rox pain, redness, and discharge, ENT: Negative for injury, pain, and discharge, Neck: Negative for injury, pain, and swelling, Respiratory: Negative for shortness of breath, cough, wheezing, and pleuritic chest pain, Back: Negative for injury and pain, : Negative for injury, bleeding, discharge, and swelling, MS/Extremity: Negative for injury and deformity, Skin: Negative for injury, rash, and discoloration. 20:45 Cardiovascular: Positive for palpitations. 20:45 Abdomen/GI: Positive for abdominal pain, nausea, rectal bleeding. 20:45 MS/extremity: Negative for acute changes. Exam: 20:45 Constitutional: This is a well developed, well nourished patient who is awake, alert, rox and in no acute distress. Head/Face: Normocephalic, atraumatic. Eyes: Pupils equal round and reactive to light, extra-ocular motions intact. Lids and lashes normal. Conjunctiva and sclera are non-icteric and not injected. Cornea within normal limits. Periorbital areas with no swelling, redness, or edema. ENT: Nares patent. No nasal discharge, no septal abnormalities noted. Tympanic membranes are normal and external auditory canals are clear. Oropharynx with no redness, swelling, or masses, exudates, or evidence of obstruction, uvula midline. Mucous membranes moist. Neck: Trachea midline, no thyromegaly or masses palpated, and no cervical lymphadenopathy. Supple, full range of motion without nuchal rigidity, or vertebral point tenderness. No Meningismus. Chest/axilla: Normal chest wall appearance and motion. Nontender with no deformity. No lesions are appreciated. Respiratory: Lungs have equal breath sounds bilaterally, clear to auscultation and percussion. No rales, rhonchi or wheezes noted. No increased work of breathing, no retractions or nasal flaring. Back: No spinal tenderness. No costovertebral tenderness. Full range of motion. Male : Normal genitalia with no discharge or lesions. Skin: Warm, dry with normal turgor. Normal color with no rashes, no lesions, and no evidence of cellulitis. 20:45 Cardiovascular: Rate: tachycardic, Rhythm: regular, Pulses: Pulses are 4+ in bilateral radial, brachial, femoral, popliteal, posterior tibial and and dorsalis pedis arteries.. Heart sounds: normal, Edema: is not appreciated, JVD: is not appreciated. Vital Signs: 20:06 BP 152 / 106; Pulse 117; Resp 16; Temp 98.6; Pulse Ox 100% on R/A; Weight 49.9 kg (R); ak1 Height 5 ft. 7 in. (170.18 cm) (R); Pain 3/10; 21:00 BP 157 / 109; Pulse 121; Resp 18; Pulse Ox 100% ; wh 22:00 BP 158 / 87; Pulse 101; Resp 19; Pulse Ox 100% on R/A; wh 23:00 BP 156 / 98; Pulse 98; Resp 18; Pulse Ox 100% on R/A; wh 20:06 Body Mass Index 17.23 (49.90 kg, 170.18 cm) ak1 MDM: 20:05 Patient medically screened. [facility] 20:49 Data reviewed: vital signs, nurses notes, lab test result(s), EKG, radiologic studies, rox plain films. 02/04 20:44 Order name: Basic Metabolic Panel; Complete Time: 22:19 [facility] 02/04 20:44 Order name: CBC with Diff; Complete Time: 22:19 [facility] 02/04 20:44 Order name: LFT's; Complete Time: 22:19 [facility] 02/04 20:44 Order name: Magnesium; Complete Time: 22:19 [facility] 02/04 20:44 Order name: NT PRO-BNP; Complete Time: 22:19 [facility] 02/04 20:44 Order name: PT-INR; Complete Time: 22:19 [facility] 02/04 20:44 Order name: Troponin (emerg Dept Use Only); Complete Time: 22:19 [facility] 02/04 20:44 Order name: XRAY Chest (1 view); Complete Time: 23:37 [facility] 02/04 20:44 Order name: Lipase; Complete Time: 22:19 [facility] 02/04 20:44 Order name: Type And Screen; Complete Time: 23:37 [facility] 02/04 21:16 Order name: CT Abd/Pelvis - IV Contrast Only [facility] 02/04 20:44 Order name: EKG; Complete Time: 20:45 [facility] 02/04 20:44 Order name: Cardiac monitoring; Complete Time: 21:22 [facility] 02/04 20:44 Order name: EKG - Nurse/Tech; Complete Time: 21:22 [facility] 02/04 20:44 Order name: IV Saline Lock; Complete Time: 21: [facility] 02/04 20:44 Order name: Labs collected and sent; Complete Time: 21:22 [facility] 02/04 20:44 Order name: O2 Per Protocol; Complete Time: 21: [facility] 02/04 20:44 Order name: O2 Sat Monitoring; Complete Time: : [facility] 02/04 22:25 Order name: IV - Large Bore; Complete Time: :41 [facility] Administered Medications: 21:43 Drug: morphine 2 mg Route: IVP; Site: right forearm; 21:44 Drug: ProTONIX 40 mg Route: IVP; Site: right forearm; 23:08 Follow up: Response: No adverse reaction :44 Drug: ProTONIX 8 mg/hr Route: IV; Rate: 25 ml/hr; Site: right forearm; 02/05 01:12 Follow up: IV Status: Infusion continued upon transfer [facility] 02/04 21:44 Drug: Zofran 4 mg Route: IVP; Site: right forearm; 23:09 Follow up: Response: No adverse reaction; Nausea is decreased 21:45 Drug: NS 0.9% 500 ml Route: IV; Rate: bolus; Site: right forearm; 23:08 Follow up: IV Status: Completed infusion 22:00 Drug: NS 0.9% 1000 ml Route: IV; Rate: 125 ml/hr; Site: right forearm; 02/05 01:12 Follow up: IV Status: Infusion continued upon transfer [facility] 02/04 22:40 Drug: Cipro 400 mg Volume: 200 ml; Route: IVPB; Infused Over: 60 mins; Site: left antecubital; 02/05 00:23 Follow up: IV Status: Completed infusion [facility] 02/04 22:41 Drug: Flagyl 500 mg Volume: 100 ml; Route: IVPB; Rate: 200 ml/hr; Infused Over: 30 wh mins; Site: left antecubital; 02/05 00:51 Follow up: IV Status: Completed infusion [facility] 02/04 23:08 Drug: morphine 2 mg {Note: RASS 0.} Route: IVP; Site: right forearm; 02/05 00:24 Follow up: Response: No adverse reaction; RASS: Drowsy (-1) [facility] 00:59 Drug: fentaNYL (PF) 50 mcg Route: IVP; Site: left antecubital; [facility] 01:12 Follow up: Response: No adverse reaction; Pain is decreased; RASS: Drowsy (-1) ak1 Disposition: 02/04/19 22:23 Transfer ordered to [facility]. Diagnosis are Gastrointestinal hemorrhage, unspecified - upper, Unspecified cirrhosis of liver, Abdominal tenderness - mass, liver cancer, Elevated white blood cell count. - Reason for transfer: Higher level of care. - Accepting physician is to [facility], medicine, cirrhosis, upper gi bleed, liver. - Condition is Serious. - Problem is new. - Symptoms have improved. Signatures: Dispatcher [employer] EDJordi Rene MD MD cha Krenek, Amber RN RN ak1 Godwin Spain Corrections: (The following items were deleted from the chart) 03:14 02/04 22:23 02/04/2019 22:23 Transfer ordered to [facility]. ak1 Diagnosis is Gastrointestinal hemorrhage, unspecified - upper; Unspecified cirrhosis of liver; Abdominal tenderness - mass, liver cancer; Elevated white blood cell count. Reason for transfer: Higher level of care. Accepting physician is to [facility], medicine, cirrhosis, upper gi bleed, liver. Condition is Serious. Problem is new. Symptoms have improved. rox
[2019-02-04] MEDS ORDERED: METRONIDAZOLE 500mg IVPB 500 MG/100 ML BAG IV ONE (22:29)
[2019-02-04] MEDS ORDERED: CIPROFLOXACIN 400mg IV 400 MG/200 ML BAG IV ONE (22:29)
--- NOTE | 2019-02-04 23:28 | RAD REPORT ---
EXAM DESCRIPTION: Ramya Single View02/04/2019 9:02 pm CLINICAL HISTORY: cough COMPARISON: November 2018 FINDINGS: The lungs appear clear of acute infiltrate. The heart is normal size IMPRESSION: No acute abnormalities displayed
[2019-02-05] MEDS ORDERED: FENTANYL CITR 100 MCG/2 ML ONE (00:57)
[2019-02-05] MEDS ORDERED: NA CHLORIDE 0.9% 1,000 ML ONE (01:44)
[2019-02-05 05:27] VITALS: TEMP 98.6; O2SAT 100
[2019-02-05 05:31] VITALS: BP 156/98
--- NOTE | 2019-02-05 07:38 | EKG ---
Test Date: 2019-02-04 Test Time: 21:06:37 Medicare Biller: СЕРГЕЙ MEASUREMENT RESULTS: Intervals: Rate: 114 ND: 130 QRSD: 66 QT: 328 QTc: 452 Bend: P: 77 ND: 130 QRS: 79 T: 77 INTERPRETIVE STATEMENTS: Sinus tachycardia Right atrial enlargement Borderline ECG Compared to ECG 12/17/2018 22:12:35 Right-axis deviation no longer present Electronically Signed On 02-05-19 07:37:44 CDT by Geovany Mark
--- NOTE | 2019-02-05 11:51 | RAD REPORT ---
EXAM DESCRIPTION: CT - Abdomen Pelvis W Contrast - 02/05/2019 2:07 am CLINICAL HISTORY: Abdominal pain. COMPARISON: 01/21/2019 TECHNIQUE: CT scan of the abdomen and pelvis was performed with IV contrast. This exam was performed according to our departmental dose-optimization program, which includes automated exposure control, adjustment of the mA and/or kV according to patient size and/or use of iterative reconstruction techn ique. Unchanged cirrhotic liver with hepatomegaly with markedly abnormal contour of the liver with multi ple areas of hypodensity and hyperdensity with a large masslike area in the inferior hepatic lobe. Th ere is mass effect on the surrounding abdominal organs. Mild intrahepatic ductal dilatation is noted. The gallbladder is not visualized. The spleen, pancreas, adrenal glands, and kidneys are unremarkabl e. The pelvic organs are also unremarkable. No small bowel obstruction. The appendix is normal. No evidence of acute diverticulitis. No adenopath y, free fluid, or free air is identified. The aortobifemoral graft is patent. The aorta is normal amilcar iber and contains atherosclerotic calcifications. No body wall hernia. No acute bony findings. IMPRESSION: 1. No acute abdominal or pelvic pathology. 2. Unchanged appearance of cirrhotic liver with massive hepatomegaly and abnormal contour with a ma sslike area in the hepatic lobe suggestive of carcinoma. Electronically signed by: Salvador Escamilla MD 02/04/2019 10:51 PM CDT Due to temporary technical issues with the PACS/Fluency reporting system, reports are being signed by the in house radiologist as a courtesy to ensure prompt reporting. The interpreting radiologist is f ully responsible for the content of the report.
== END 2019-02-05 03:14 | disposition short-term general hospital (02) ==
LOC: ER 19:39
DX: K74.60 Unspecified cirrhosis of liver (principal); D72.829 Elevated white blood cell count, unspecified; R19.01 Right upper quadrant abdominal swelling, mass and lump; Z85.05 Personal history of malignant neoplasm of liver; I10 Essential (primary) hypertension
CPT/HCPCS: 36415; 71045; 74177; 80048; 80076; 83690; 83735; 83880; 84484; 85025; 85610; 86850; 86900; 86901; 93005; 96365; 96366; 96367; 96368; 96375; 99285; C9113; J0744; J2270; J2405; J3010; J7030; Q9967